=== PATIENT | female | born 2005 | race Caucasian/White ===

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

== ENCOUNTER 2024-01-03 02:26 | Observation (INO) | payer MEDICAID, SELFPAY ==
--- OUTSIDE RECORDS SUMMARY | 2024-01-03 02:31 | XMS_ITS | CCD ---
Author Organization [facility] Inform ion Partnership 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 HCG ( test) Ql (U)o n 07-25-2023 Interpretation and review of laboratory results Abnormal [facility] re Preg Test, Ur Positive [facility] Urinalysis macro (dipstick) panel (U)on 07-25-2023 Bilirubin, UA Negative Negative - 4(70) +++ mg/dL [facility] Blood, UA Negative Negative - 50 Onur/mcL [facility] Clarity, UA Clear [facility] re Color, UA Yellow [facility] e Glucose, UA Negative Negative - 1999(110) ++++ mg/dL [facility] Interpretation and review of laboratory results Abnormal [facility] re Ketones, UA Positive Negative - 160(16) ++++ mg/dL [facility] Leukocytes, UA Positive Negative - 500+++ Todd/mcL [facility] Nitrite, UA Negative Negative - Positive [facility] pH, UA 7.0 5 - 9 [facility] Protein, UA Positive Negative - 1999(20) ++++ mg/dL [facility] Spec Grav, UA 1.025 1 - 1.03 [facility] Urobilinogen, UA 1.0 0.2 - 12 mg/dL [facility] BASIC METABOLIC PANLon 07-18 Anion gap [Moles/Vol] 9 mmol/L Normal 5-15 [facility] Comment on above: Performed By: #### B MP #### [facility] ([id number]) [address] [place] [address]45 Calcium [Mass/Vol] 9.1 mg/dL Normal 8.5-10.5 [facility] Comment on above: Performed By: #### B MP #### [facility] ([id number]) [address] [place] [address] 93222 Chloride [Moles/Vol] 104 mmol/L Normal 98-109 [facility] Comment on above: Performed By: #### B MP #### [facility] ([id number]) [address] [place] [address] 51875 CO2 [Moles/Vol] 21 mmol/L Low 22-32 [facility] Comment on above: Performed By: #### B MP #### [facility] ([id number]) [address] [place] [address] 65890 Creatinine [Mass/Vol] 0.58 mg/dL Normal 0.30-1.00 [facility] Comment on above: Result Comment: METH OD TRACEABLE TO IDMS STANDARD Performed By: #### B MP #### [facility] ([id number]) [address] [place] [address] 32856 eGFR (CKD-EPI) NON-RACE DEPENDENT >90 Normal >59 [facility] Comment on above: Result Comment: Reported eGFR is based on the CKD-EPI 2020 equation that does not use a race coefficient. Performed By: #### B MP #### [facility] ([id number]) [address] [place] [address] 83055 Glucose [Mass/Vol] 106 mg/dL High 65-99 [facility] Comment on above: Performed By: #### B MP #### [facility] ([id number]) [address] [place] [address] 43343 Potassium [Moles/Vol] 3.5 mmol/L Normal 3.5-5.0 [facility] Comment on above: Performed By: #### B MP #### [facility] ([id number]) [address] [place] [address] 92942 Sodium [Moles/Vol] 134 mmol/L Normal 134-146 [facility] Comment on above: Performed By: #### B MP #### [facility] ([id number]) [address] [place] [address] 38951 Urea nitrogen [Mass/Vol] 10 mg/dL Normal 5-23 [facility] Comment on above: Performed By: #### B MP #### [facility] ([id number]) [address] [place] [address] 59687 HCG ( test) Ql (U)o n 07-18-2023 Beta HCG ( test) Ql (U) Positive Abnormal NEG [facility] Comment on above: Performed By: #### 2 106-3 #### [facility] ([id number]) [address] [place] [address] 80655 SARS/FLU A+B/RSV by NAAT/Mol ecularon 07-18-2023 SARS/FLU [...] operators who are performing tests using either SecurActive DX or Eyetronics systems and is limited to laboratories that [...] repeat. Fact Sheet for Healthcare Providers: https://www.fda.gov/ media/972587/downloa d Fact Sheet for Patients: https://www.fda.gov/ media/750927/downloa d Normal [facility] Comment on above: Performed By: #### C OVFLR #### [facility] ([id number]) [address] [place] [address], [place] [address] URINE CULTUREon 07-18-2023 Bacteria identified Cx Nom (U) CULTURE RESULTS 50-100,000 ORGANISMS/ML NORMAL UROGENITAL ADELE Normal [facility] Comment on above: Performed By: #### 6 30-4 #### [facility] ([id number]) [address] [place] [address], [address] [place] [address] URN MACROSCOPIC NURon 2023 BILIRUBIN MARLYS Negative Normal NEG [facility] Comment on above: Performed By: #### N UM #### [facility] ([id number]) [address] [place] [address] 26869 BLOOD/HGB MARLYS Negative Normal NEG [facility] Comment on above: Performed By: #### N UM #### [facility] ([id number]) [address] [place] [address] 66831 GLUCOSE MARLYS Negative Normal NEG [facility] Comment on above: Performed By: #### N UM #### [facility] ([id number]) [address] [place] [address]76 KETONES MARLYS 40 mg/dL Abnormal NEG [facility] Comment on above: Performed By: #### N UM #### [facility] ([id number]) [address] [place] [address] 12052 LEUKOCYTE ESTERASE MARLYS Small Abnormal NEG [facility] Comment on above: Performed By: #### N UM #### [facility] ([id number]) [address] [place] [address] 53159 NITRITE MARLYS Negative Normal [facility] Comment on above: Performed By: #### N UM #### [facility] ([id number]) [address] [place] [address] 26051 PH MARLYS 7.5 Normal 5.0-8.5 [facility] Comment on above: Performed By: #### N UM #### [facility] ([id number]) [address] [place] [address] 41258 PROTEIN MARLYS 30 mg/dL Abnormal NEG [facility] Comment on above: Performed By: #### N UM #### [facility] ([id number]) [address] [place] [address] [place] [address] SPECIFIC GRAVITY MARLYS 1.020 Normal 1.003-1.035 [facility] Comment on above: Performed By: #### N UM #### [facility] ([id number]) [address] [facility], [place] [address] UROBILINOGEN MARLYS 2.0 eu/dL High <1.1 [facility] Comment on above: Performed By: #### N UM #### [facility] ([id number]) [address] [place] [address], [place] [address] COVID Quick Testingon 2020 Result Negative [facility] Other Quick Strepon 05-08-2021 S. pyogenes Org specific cx Ql (Throat) Negative [facility] Other Quick Strep [facility]Pay [facility] Other XR chest 2V*on 05-08-2021 XR chest 2V* [facility] [place] [address] [place] [address] XRay Report Signed Patient: Shayla Martinez MR#: [id number] : 2005 Acct:[id number] Age/Sex: 15 / F ADM Date: 05/08/21 Loc: LOCATED [facility]IN [facility] Room: Type: [facility] Attending Dr: Sravani Dumont APRN, NP-C Ordering [...] 2:43 PM Dictation Location: RADIO-PC-10 Transcribed By: [facility] 05/08/21 1443 Dictated By: Radha Joyce MD 05/08/21 1442 Signed By: 05/08/21 1443 Normal [facility] XR chest 2V* [facility] Other XR chest 2V* [facility] Other XR chest 2V* [address] [place] [address] [employer] Other XR chest 2V* [place] [address] [facility] Other XR chest 2V* XRay Report [facility] Other XR chest 2V* Signed [facility] Other XR chest 2V* Patient: Shayla Martinez MR#: [id number] [facility] Other XR chest 2V* [id number] [facility] Other XR chest 2V* : 2005 Acct:[id number] [facility] Other XR chest 2V* Age/Sex: 15 / F ADM Date: 05/08/21 [facility] Other XR chest 2V* [facility] Other XR chest 2V* Attending Dr: Sravani Dumont APRN, LABORATORY DIRECTOR-C [facility] Other XR chest 2V* Ordering Provider: Sravani Dumont APRN, ASTROCHEMIST [facility] Other XR chest 2V* Date of Service: 05/08/21 [facility] Other XR chest 2V* XR/XR chest 2V*: Cough;Wheezing [facility] Other XR chest 2V* Copies to: Sravani Dumont APRN, MAXIMILIANO [facility] Other XR chest 2V* PA AND LATERAL CHEST: [facility] Other XR chest 2V* CLINICAL HISTORY: Crackling and diminished lung sounds on exam today. Body aches, fever and [facility] Other XR chest 2V* productive cough. [facility] Other XR chest 2V* COMPARISON: None [facility] Other XR chest 2V* There is no focal parenchymal consolidation, effusion or pneumothorax. The cardiac, hilar and [facility] Other XR chest 2V* mediastinal silhouettes are within normal limits. There is no vascular congestion. The [facility] Other XR chest 2V* visualized bony thorax is intact. There is subtle reverse S-shaped scoliotic curvature. [facility] Other XR chest 2V* XR/XR chest 2V* [facility] Other XR chest 2V* IMPRESSION: [facility] Other XR chest 2V* NO ACUTE CARDIOPULMONARY ABNORMALITY. [facility] Other XR chest 2V* Impression dictated by: Radha Joyce M.D.05/08/2021 2:43 PM [facility] Other XR chest 2V* Dictation Location: [facility]--10 [facility] Other XR chest 2V* Transcribed By: VIC 05/08/21 [facility] Other XR chest 2V* Dictated By: Radha Joyce MD 05/08/21 [facility] Other XR chest 2V* Signed By: [facility] Other XR chest 2V* 05/08/21 6623 [facility] Other C Throaton 09-17-2019 C Throat Ordered by Discern. Normal throat adele isolated No pathogens isolated [facility] Comment on above: Performed By: #### 6 [id number] ####[facility] (DEFAULT)[address] [place] [address] Coding Summaryon 09-16-2019 Coding Summary CODING DATE: 09/16/2019 [facility] STATUS: PAYOR: Medicaid HMO ADMIT DX: [...] Todd Bacon' Date Saved: 09/16/2019 11:41 am [facility] Coding Summary CODING DATE: 09/16/2019 [facility] STATUS: Home PAYOR: Medicaid HMO ADMIT [...] Dee Bacon Date Saved: 09/16/2019 11:39 am [facility] Consent Formson 09-16-2019 Consent Forms [id number] [id number] [facility] ED Clinical Summaryon 2019 ED Clinical Summary [facility] - Emergency Department [address] [place] [address] ED Clinical Summary PERSON INFORMATION Name: SHAYLA MARTINEZ Age: 13 Years Sex: FEMALE : 2005 MRN: Acct#: Visit Reason: EENT and Dental; Foreign body in throat; FOREIGN OBJECT IN THROAT Arrival: 09/15/2019 01:16:53 Discharge: 09/15/2019 03:23:00 LOS: 000 02:07 Check In: 09/15/2019 01:16:53 Checkout:09/15/2019 03:23:00 Address: [address] [place] [address] PCP: PROVIDER INFORMATION Provider Role Assigned Unassigned [...] here with her mom, she is from [place], private vehicle arrival. Review of systems otherwise [...] no foreign body seen, no RPA, PPA, TRANSIT MIXER DRIVER, no anterior posterior or supraclavicular nodes, no [...] . Impression and Plan Diagnosis Pharyngeal irritation (QPH02-VL J39.2, Discharge, Medical) Plan Condition: Improved. Disposition: Discharged: time 09/15/2019 03:13:00. Patient was given the following educational materials: Pharyngitis, Iana-gl-Tkhy, Pharyngitis, Nffd-sz-Ciib. Follow up with: JORGE HER Within 3 [...] Location: Home PATIENT EDUCATION INFORMATION Instructions: Pharyngitis, Ppdc-af-Veuh Follow-Up: With: Address: When: JORGE HER [facility] [place] [id number] Business (1) Within 3 to 5 days Comments: home lozenges as needed, expect this to resolve call Ms Her for a recheck if this continues for three days you are welcomed to return anytime joy ignacio, er physician, jumana hicks DIAGNOSIS: Pharyngeal irritation Patient Understands: Yes - Patient/family/careg iver verbalizes understanding of instructions given Comment: [facility] ED Note - Physicianon 2019 ED Note [...] here with her mom, she is from [place], private vehicle arrival. Review of systems otherwise [...] no foreign body seen, no RPA, PPA, TRANSIT MIXER DRIVER, no anterior posterior or supraclavicular nodes, no [...] . Impression and Plan Diagnosis Pharyngeal irritation (BQA59-YH J39.2, Discharge, Medical) Plan Condition: Improved. Disposition: Discharged: time 09/15/2019 03:13:00. Patient was given the following educational materials: Pharyngitis, Rkfp-vh-Nsyp, Pharyngitis, Fuum-dx-Rnlo. Follow up with: JORGE HER Within 3 [...] on: 09/15/2019 03:13 EDT] Cristofer Ignacio DO [facility] ED Patient Education Noteon 09-15-2019 ED Patient Education Note Education Materials Infectious Disease Pharyngitis Pharyngitis is a sore throat (pharynx). This is when there is redness, pain, and swelling in your throat. Most of the time, this condition gets better on its own. In some cases, you may need medicine. Follow these instructions at home: ? Take wcbg-lbz-fzokjsr and prescription medicines only as told by [...] 11/18/2008 Document Revised: 07/08/2017 Document Reviewed: 07/08/2017 [employer] Patient Education ? 2019 [employer] Normal [facility] ED Patient Summaryon 020 ED Patient Summary [facility] - Emergency Department [address] [place] [address] PATIENT DISCHARGE INSTRUCTIONS Patient Information Name: SHAYLA MARTINEZ Age: 13 Years Date of : 2005 Reason For Visit: EENT and Dental; Foreign body in throat; FOREIGN OBJECT IN THROAT Arrival Time: 09/15/2019 01:16:53 Primary Care Physician: Attending Physician: Cristofer Ignacio DO Comment: Visit Diagnosis: Diagnoses This Visit EENT and Dental ([id number]) Foreign body in throat ([id number]) Pharyngeal irritation (J39.2) Prescription Information: If you have been given a prescription for narcotics, seek immediate medical attention if you have any difficulty breathing or any sudden status changes such as confusion and sleepiness. If you or anyone you know is experiencing suicidal thoughts, mental health, alcohol and/or drug addiction problems; contact the [facility] 06/01 Crisis Hotline -Text 4HOIP to 413093. If you received any narcotics, sedation, or [...] legal documents With: Address: When: JORGE HER [address] [place], [place] [address] Business (1) Within 3 to 5 days Comments: home lozenges as needed, expect this to resolve call Ms Her for a recheck if this continues for three days you are welcomed to return anytime joy ignacio, suzi physician, jumana hicks Medication Information: The exam and treatment you received today in the [facility] Emergency Department were for an urgent problem and are not intended as complete care. It is important for you to follow up with a doctor, nurse practitioner, or physician?s home health assistant for ongoing care. If your symptoms [...] so we can reach you if necessary. [facility] Emergency Department has provided you with a complete list of medications post discharge. Please inform your pouch making machine operator/provider of your visit and for further [...] Follow these instructions at home: ? Take rrgk-ckp-pkjuwsg and prescription medicines only as told by [...] 11/18/2008 Document Revised: 07/08/2017 Document Reviewed: 07/08/2017 [employer] Patient Education ? 2019 [employer] Viruses or Bacteria What?s got you [...] for Disease Control and Prevention February 2014 [facility] Influenza A&B Rapidon 2019 Influenza A Negative Normal Negative [facility] Comment on above: Performed By: #### 1 [id number] #### [facility] (DEFAULT) [address] [place] [address] Influenza B Negative Normal Negative [facility] Comment on above: Performed By: #### 1 [id number] #### [facility] (DEFAULT) [address] [place] [address] Internal QC OK? Pass [facility] Comment on above: Performed By: #### 1 [id number] #### [facility] (DEFAULT) [address] [place] [address] Strep Aon 09-15-2019 Strep procedure control Pass Normal [facility] l Comment on above: Performed By: #### 6 [id number] #### [facility] (DEFAULT) [address] [place] [address] Streptococcus A Negative Normal Negative [facility] Comment on above: Performed By: #### 6 [id number], [id number] #### [facility] (DEFAULT) [address] [place] [address] XR Neck Soft Tissueon 2019 XR Neck [...] L 09/15/19 2:28 am Technologist: PATRICIA Johnson [facility] Vital Signs Date Time Vital Sign Value Performing Clinician Facility 07-25-2023 10:08-0500 Body weight 73.85 kg Noms Nurse [facility] 04-16-2022 14:30-0400 Body weight 79.74 kg Sravani Dumont Other [facility] Other 04-16-2022 14:30-0400 Diastolic blood pressure 74 mm[Hg] Sravani Dumont Other [facility] Other 04-16-2022 14:30-0400 SaO2% (BldA) [Mass fraction] 96 % Sravani Dumont Other [facility] Other 04-16-2022 14:30-0400 Systolic blood pressure 116 mm[Hg] Sravani Dumont Other [facility] Other 03-08-2021 14:00-0400 Body height 166.37 cm Sravani Julia Other [facility] Other 03-08-2021 14:00-0400 Body mass index (BMI) [Ratio] 29.33 kg/m2 Sravani Julia Other [facility] Other 03-08-2021 14:00-0400 Body weight 81.19 kg Sravani Julia Other [facility] Other 03-08-2021 14:00-0400 Diastolic blood pressure 66 mm[Hg] Sravani Dumont Other [facility] Other 03-08-2021 14:00-0400 Respiratory rate 18 /min Sravani Julia Other [facility] Other 03-08-2021 14:00-0400 SaO2% (BldA) [Mass fraction] 100 % Sravani Julia Other [facility] Other 03-08-2021 14:00-0400 Systolic blood pressure 120 mm[Hg] Sravani Dumont Other [facility] Other Encounters Encounter Date Encounter Type Care [...] 07-18-2023 Emergency department patient visit JORGE [facility] Start: 11-28-2022 End: 11-28-2022 ambulatory Sravani Dumont Other [facility] Other Start: 11-28-2022 Telephone encounter Sravani Forrest her [facility] Start: 04-16-2022 End: 04-16-2022 ambulatory Sravani Dumont Other [facility] Other Start: 04-16-2022 Encounter for routin e child health examination without abnormal findings Sravani Dumont [facility] Start: 04-16-2022 Periodic preventive med est patient 12-17yrs Sravani Dumont [facility] Start: 05-08-2021 End: 05-08-2021 ambulatory Sravani Dumont Other [facility] Other Start: 05-08-2021 Office outpatient vi sit 15 minutes Sravani Dumont [facility] Start: 05-08-2021 Telephone encounter Sravani Forrest her [employer] Start: 03-08-2021 Office outpatient vi sit 15 minutes Sravani Dumont [facility] Procedures Date Procedure Procedure Detail Performing Clinician Start: 07-29-2023 [facility] BOX TEST SENT OUT C ted Lindseyzio DO Work Phone: Start: 07-25-2023 Urnls dip stick/tabl et rgnt non-auto w/o micrscp Willi Christiansen DO Work Phone: Plan of Treatment Date Care Activity Detail Author Start: 08-26-2023 End: 08-26-2023 Patient encounter procedure 08/26/2023 1:50 PM EDT Routine [facility] [address] [place] [id number] Willi Christiansen, DO [address] [place] [address] [facility] Start: 07-25-2023 End: 07-25-2024 ABO/Rh ABO/Rh Lab Routine Missed menses Expected: 07/25/2023 (Approximate), Expires: 07/25/2024 [facility] Comment on above: Expected: 07/25/2023 (Approximate), Expires: 07/25/2024 Start: 07-25-2023 End: 07-25-2024 Blood type and Indirect antibody screen panel - Blood Type and screen Lab Routine Missed menses Expected: 07/25/2023 (Approximate), Expires: 07/25/2024 [facility] Work Phone: Comment on above: Expected: 07/25/2023 (Approximate), Expires: 07/25/2024 Start: 07-25-2023 End: 07-25-2024 US Pelvis transvaginal US OB transvaginal Imaging Routine Missed menses Expected: 07/25/2023 (Approximate), Expires: 07/25/2024 [facility] Comment on above: Expected: 07/25/2023 (Approximate), Expires: 07/25/2024 Bacteria identified in Urine by Culture Urine culture Microbiology Routine Missed menses Ordered: 07/25/2023 [facility] Comment on above: Ordered: 07/25/2023 CBC W Auto Different ial panel - Blood CBC and differential Lab Routine Missed menses Ordered: 07/25/2023 [facility] Comment on above: Ordered: 07/25/2023 Hemoglobin A1c measurement Hemoglobin A1c Lab Routine Missed menses Ordered: 07/25/2023 [facility] Comment on above: Ordered: 07/25/2023 Hepatitis B virus surface Ag [Presence] in Serum or Plasma by Immunoassay Hepatitis B surface antigen Lab Routine Missed menses Ordered: 07/25/2023 [facility] Comment on above: Ordered: 07/25/2023 Hepatitis C virus Ab [Presence] in Serum or Plasma by Immunoassay Hepatitis C antibody Lab Routine Missed menses Ordered: 07/25/2023 [facility] Comment on above: Ordered: 07/25/2023 HIV-1/HIV-2 antigen/antibody combination immunoassay HIV-1 and HIV-2 antibodies Lab Routine Missed menses Ordered: 07/25/2023 [facility] Comment on above: Ordered: 07/25/2023 Reagin Ab [Presence] in Serum by RPR RPR Lab Routine Missed menses Ordered: 07/25/2023 [facility] Comment on above: Ordered: 07/25/2023 Rubella antibody, IgG Rubella an tibody, IgG Lab Routine Missed menses Ordered: 07/25/2023 [facility] Comment on above: Ordered: 07/25/2023 Payers Date Payer Category Payer Medicaid [place] [id number] 2023-Present [address] [place] [address] [id number] 2022 Medicaid [id number] 2021 [facility] [id number] 2016 Unknown [id number] 2004 Unknown [id number] 2004 Unknown [id number] 2004 Unknown [id number] 259 2004 Unknown [id number] 2004 Unknown [id number] 259 Social History Date Type Detail Facility Sex Assigned At [facility] Other Tobacco smoking stat [facility] Tobacco smoking consumption unknown [facility] Start: 06-03-2023 [facility] Start: 2005 Sex Assigned At Female [facility] Start: 07-07-2023 Gender identity Identifies as female gender (finding) [facility] Start: 07-07-2023 Sexual orientation Heterosexual (finding) [facility] History of Present illness Narrative [...] or undercooked meat, and stay away from [facility]. Patient has also been advised to [...] Jacquelyn Steel MA documented in this encounter [facility] Evaluation note 04-16-2022 Note Date & [...] understanding and agrees to plan of care. [facility] Other Evaluation note 05-08-2021 Note Date & [...] stool studies. Apr, Nausea (ICD-10 - R11.0) [facility] Other Evaluation note 03-08-2021 Note Date & [...] verbalized understanding and agreement with treatment plan. [facility] Other Evaluation note Note Date & Type Note Facility Evaluation note No Information [facility] Other Evaluation note Note Date & Type Note Facility Evaluation note Diagnosis Missed menses documented in this encounter [facility] History general Narrative - Reported Note Date & Type Note Facility History general Narrative - Reported Type Medical History [facility] Surgical History tonsilectomy and adenoidectomy [facility] Other Summary Purpose Family History No Family History Records FoundNo Family History Records FoundNo Family History Records FoundNo Family History Records Found Advance Directives No Advanced Directives Records FoundNo Advanced Directives Records FoundNo Advanced Directives Records FoundNo Advanced Directives Records Found Additional Source Comments INFORMATION SOURCE (unrecogn ized section and content) DATE CREATED AUTHOR 07/08/2020 [facility] DATE CREATED AUTHOR AUTHOR'S ORGANIZ ATION 08/03/2021 [facility] DATE CREATED AUTHOR AUTHOR'S ORGANIZ ATION 07/20/2023 [facility] DATE CREATED AUTHOR AUTHOR'S ORGANIZ ATION 11/21/2023 [facility] EPIC REASON FOR VISIT [...] BE BASED ON THE PRIMARY CLINICAL RECORDS. [employer] provides no warranty or guarantee of the accuracy or completeness of information in this document.
[2024-01-03 02:51] VITALS: BP 135/79; PULSE 90; O2SAT 99
[2024-01-03 03:11] LABS: Bilirubin Urine NEGATIVE (NEGATIVE); Blood Urine NEGATIVE (NEGATIVE); Clarity Urine SL CLOUDY (CLEAR); Color Urine LT. YELLOW (YELLOW); Glucose Urine UA NEGATIVE (NEGATIVE); Ketones Urine >=80 mg/dL (NEGATIVE); Leukocyte Esterase Urine SMALL (NEGATIVE); Nitrite Urine NEGATIVE (NEGATIVE); Protein Urine NEGATIVE (NEG/TRACE); Specific Gravity Urine >=1.030 (1.005-1.025); Urobilinogen Urine 0.2 EU/dL (0.2-1.0)
[2024-01-03 03:13] LABS: Urine Microscopic Indicated YES
[2024-01-03 03:24] LABS: Bacteria Urine MODERATE #/HPF (NONE SEEN); Mucus Urine TRACE (NONE SEEN); RBC Urine 0-2 #/HPF (0-2); Squamous Epithelial Cell Urine MODERATE #/LPF (NONE/RARE)
[2024-01-03 03:25] LABS: Cast Seen? NONE SEEN #/LPF (NONE SEEN); Crystals Seen? None Seen #/HPF (None Seen)
[2024-01-03 03:26] LABS: Urine Culture Indicated YES
[2024-01-03] MEDS: 0.9 % SODIUM CHLORIDE 1,000 ML 125 ML IV ×2 (04:30→08:30)
[2024-01-03] MEDS: NALBUPHINE HCL 10 MG/ML AMPULE IV (04:31)
--- NOTE | 2024-01-03 07:00 | US_ITS ---
[address] [address] Patient Name: KALYN MARTINEZ MRN: [facility]:[id number] date: 2005 Sex: F Assigned Patient Location: [facility] Current Patient Location: [facility] Accession/Order Number: [id number] Exam Date: 01/03/2024 07:11 Report Date: 01/03/2024 08:37 At the request of: WILLI ZAMBRANO Procedure: US OB cervical length EXAM: US OB cervical length, US OB placenta INDICATION: Fall. COMPARISON: None. TECHNIQUE: Limited obstetric ultrasound was performed. FINDINGS: Single intrauterine gestation in cephalic presentation [place]: 16.2 cm, normal Single deepest pocket: 5.1 cm Placenta location: Posterior. No evidence of placental abruption. heart rate: 126 bpm Cervical length: 3.5 cm, closed US/US OB cervical length IMPRESSION: 1. Single live intrauterine gestation. 2. Normal cervical length. 3. Posterior placenta. Electronically authenticated by: MARITZA HDEZ Date: 01/03/2024 08:37
--- NOTE | 2024-01-03 07:00 | US_ITS ---
[place] [id number] Patient Name: KALYN MARTINEZ MRN: [facility]:[id number] date: 2005 Sex: F Assigned Patient Location: [facility] Current Patient Location: [facility] Accession/Order Number: [id number] Exam Date: 01/03/2024 07:11 Report Date: 01/03/2024 09:01 At the request of: WILLI ZAMBRANO Procedure: US OB BPP w non-stress EXAM: US OB BPP w non-stress INDICATION: fall. COMPARISON: Same day obstetric ultrasound TECHNIQUE: Limited transabdominal obstetric ultrasound was performed. FINDINGS: Single intrauterine gestation. heart rate: 126 bpm [place]: 16.2 cm, normal Biophysical profile: Amniotic fluid: 2 Breathin Movement: 2 Tone: 2 Total biophysical score: 8 out of 8 US/US OB BPP w non-stress IMPRESSION: 1. Single live intrauterine . 2. BPP of 8 out of 8 Electronically authenticated by: MARITZA HDEZ Date: 01/03/2024 09:01
--- NOTE | 2024-01-03 07:00 | US_ITS ---
[address] [address] Patient Name: KALYN MARTINEZ MRN: [facility]:[id number] date: 2005 Sex: F Assigned Patient Location: [facility] Current Patient Location: [facility] Accession/Order Number: [id number] Exam Date: 01/03/2024 07:11 Report Date: 01/03/2024 08:37 At the request of: WILLI ZAMBRANO Procedure: US OB placenta EXAM: US OB cervical length, US OB placenta INDICATION: Fall. COMPARISON: None. TECHNIQUE: Limited obstetric ultrasound was performed. FINDINGS: Single intrauterine gestation in cephalic presentation [place]: 16.2 cm, normal Single deepest pocket: 5.1 cm Placenta location: Posterior. No evidence of placental abruption. heart rate: 126 bpm Cervical length: 3.5 cm, closed US/US OB placenta IMPRESSION: 1. Single live intrauterine gestation. 2. Normal cervical length. 3. Posterior placenta. Electronically authenticated by: MARITZA HDEZ Date: 01/03/2024 08:37
--- NOTE | 2024-01-03 08:00 | XR_ITS ---
[address] [address] Patient Name: KALYN MARTINEZ MRN: [facility]:[id number] date: 2005 Sex: F Assigned Patient Location: [facility] Current Patient Location: [facility] Accession/Order Number: [id number] Exam Date: 01/03/2024 10:37 Report Date: 01/03/2024 11:22 At the request of: WILLI ZAMBRANO Procedure: XR chest 2V EXAM: XR chest 2V INDICATION: Fall. COMPARISON: None. TECHNIQUE: Two views of the chest FINDINGS: Normal cardiomediastinal contours. No acute infiltrative process. No pleural effusion or pneumothorax. No acute osseous abnormality. XR/XR chest 2V IMPRESSION: No acute cardiopulmonary process. Electronically authenticated by: MARITZA HDEZ Date: 01/03/2024 11:22
[2024-01-03 08:30] VITALS: PULSE 77; TEMP 36.8
[2024-01-03] MEDS: ACETAMINOPHEN 500 MG TABLET 1000 MG PO (08:31)
[2024-01-03 08:36] VITALS: BP 114/55; PULSE 77; TEMP 36.8
--- NOTE | 2024-01-03 09:22 | P.OBPN_ITS ---
OB - PN: Subj Subjective Interval history: 18 yo at 32 4/7wks presented dt fall in shower, pt states fell on ribs, pt states ribs are painful, denies fever chills, denies urinary symptoms, pt denies lof vb, ctxns Exam Constitutional Vital Signs, click to edit/add: Last Vital Signs Pulse 77 01/03/24 08:36 Resp 16 01/03/24 02:51 BP 114/55 01/03/24 08:36 Pulse Ox 99 01/03/24 02:51 Documenting provider has reviewed patient's vital signs: yes Respiratory Common normals: normal respiratory effort and clear to auscultation bilaterally Cardio Common normals: regular rate and regular rhythm GI Common normals: Normal to inspection, nondistended, normoactive bowel sounds present Extremity Common normals: normal to inspection and no clubbing, cyanosis or edema Results Labs Labs: Urine 01/03/24 Range/Units 02:40 Urine Color Lt. yellow (YELLOW) Urine Clarity Sl cloudy (CLEAR) Urine pH 6.0 (5.0-9.0) Ur Specific [place] >=1.030 A (1.005-1.025) Urine Protein Negative (NEG/TRACE) mg/dL Urine Glucose (UA) Negative (NEGATIVE) mg/dL OB - PN: A/P Assessment and Plan (1) Rib pain: (2) Intrauterine : Assessment and Plan: obtain us and cxr, pain control, efm, will dc home if normal cxr Time Spent with Patient Time: Total time spent is greater than 50% in coordination of care (as documented) at patient's floor/unit and/or counseling patient: Total time spent with greater than 50% in coordination of care (as documented) at patient's floor/unit and/or counseling patient: less than 15 minutes
== END 2024-01-03 11:51 | disposition home or self-care (01) ==
PROVIDERS: Admitting Provider Obstetrics & Gynecology; Visit Provider Obstetrics & Gynecology
DX: O26.893 Other specified pregnancy related conditions, third trimester (principal); R07.81 Pleurodynia; W18.2XXA Fall in (into) shower or empty bathtub, initial encounter
CPT/HCPCS: 59025; 71046; 76815; 76817; 76818; 81001; 87086; 96374; G0378; G0379; J2300

== ENCOUNTER 2024-01-06 10:03 | Outpatient (OUT) | payer MEDICAID, SELFPAY ==
--- NOTE | 2024-01-06 10:06 | US_ITS ---
[address] [address] Patient Name: KALYN MARTINEZ MRN: [id number] date: 2005 Sex: F Assigned Patient Location: [facility] Current Patient Location: [facility] Accession/Order Number: [id number] Exam Date: 01/06/2024 10:06 Report Date: 01/06/2024 11:23 At the request of: WILLI ZAMBRANO Procedure: US OB growth EXAMINATION: US OB growth HISTORY: SIZE INCONSISTENT WITH DATES COMPARISON: Ultrasound OB anatomy 10/20/2023 FINDINGS: Heart Rate: 132 bpm Amniotic Fluid Volume: 10.8 cm Number: 1 Position: CEPHALIC BIOMETRY: BPD: 8.17 cm; 32 weeks 6 days; 38.50 % HC: 29.98 cm; 33 weeks 2 days; 19.40 % AC: 28.86 cm; 32 weeks 6 days; 47 % FL: 6.33 cm; 32 weeks 5 days; 31 % EFW: 2044.98 g; 36.30 % FL/AC: 21.93 FL/BPD: 77.48 HC/AC: 1.04 GESTATIONAL AGE: Age by EDC: 33 weeks 0 days CHENTE by EDC: 2024-02-24 Age by US: 33 weeks 0 days CHENTE by US: 2024-02-24 US/US OB growth IMPRESSION: 1. Single live intrauterine with growth detailed above. Electronically authenticated by: JOÃO RAMÍREZ Date: 01/06/2024 11:23
== END 2024-01-06 10:04 | disposition home or self-care (01) ==
LOC: NOMS 10:03
PROVIDERS: Visit Provider Obstetrics & Gynecology
DX: O26.843 Uterine size-date discrepancy, third trimester (principal); Z3A.33 33 weeks gestation of pregnancy
CPT/HCPCS: 76816

== ENCOUNTER 2024-01-14 22:45 | Observation (INO) | payer MEDICAID, SELFPAY ==
--- OUTSIDE RECORDS SUMMARY | 2024-01-14 22:51 | XMS_ITS | CCD ---
Author Organization [facility] Inform ion Partnership [facility] Care Team Providers Care Garment Presser Name Role Phone Sravani Dumont Unavailable JORGE HER Primary Care Unavailable JEROMY TIJERINA Attending Unavailable Unavailable Primary Care Provider WILLI Pettit Attending Unavailable EDGAR COX Attending Unavailable WILLI CHRISTIANSEN Attending Unavailable WILLI CHRISTIANSEN Attending Unavailable EDGAR COX Attending Unavailable Allergies Allergy Classification Reported Allergen(s) Allergy Type Date of Onset Reaction(s) Facility (3 sources) Amoxicillin; Translations: [AMOXICILLIN] Drug Allergy 12-27-2022 [facility] Rep[facility] Medications Current Medications Medication Drug Class(es) Dates Sig (Normalized) Sig (Original) [id number] 200 actuat albuterol 0.09 mg/actuat metered dose [...] Test Name Value Interpretation Reference Range Facility [facility] BOX TEST SENT OUTon 07-17 BOX TEST SENT OUT SENT 07/29 [facility] e HCG ( test) Ql (U)o n 07-25-2023 Interpretation and review of laboratory results Abnormal [facility] Preg Test, Ur Positive [facility] e Urinalysis macro (dipstick) panel (U)on 07-25-2023 Bilirubin, UA Negative Negative - 4(70) +++ mg/dL [facility] Blood, UA Negative Negative - 50 Onur/mcL [facility] Clarity, UA Clear [facility] re Color, UA Yellow [facility] e Glucose, UA Negative Negative - 2000(110) ++++ mg/dL [facility] Interpretation and review of laboratory results Abnormal [facility] re Ketones, UA Positive Negative - 160(16) ++++ mg/dL [facility] Leukocytes, UA Positive Negative - 500+++ Todd/mcL [facility] Nitrite, UA Negative Negative - Positive [facility] pH, UA 7.0 5 - 9 [facility] e Protein, UA Positive Negative - 1999(20) ++++ mg/dL [facility] Spec Grav, UA 1.025 1 - 1.03 [facility] Urobilinogen, UA 1.0 0.2 - 12 mg/dL [facility] e BASIC METABOLIC PANLon 07-18 Anion gap [Moles/Vol] 9 mmol/L Normal 5-[address] [facility] Comment on above: Performed By: #### B MP #### [facility] ([id number]) [address] [place] [address] 32144 Calcium [Mass/Vol] 9.1 mg/dL Normal 8.5-10.5 [facility] Comment on above: Performed By: #### B MP #### [facility] ([id number]) [address] [place] [address] 01465 Chloride [Moles/Vol] 104 mmol/L Normal 98-[address] [facility] Comment on above: Performed By: #### B MP #### [facility] ([id number]) [address] [place] [address] 02399 CO2 [Moles/Vol] 21 mmol/L Low 22-32 [facility] Comment on above: Performed By: #### B MP #### [facility] ([id number]) [address] [place] [address] 75172 Creatinine [Mass/Vol] 0.58 mg/dL Normal 0.30-1.[address] [facility] Comment on above: Result Comment: METH OD TRACEABLE TO IDMS STANDARD Performed By: #### B MP #### [facility] ([id number]) [address] [place] [address] 11155 eGFR (CKD-EPI) NON-RACE DEPENDENT >90 Normal >59 [facility] Comment on above: Result Comment: Reported eGFR is based on the CKD-EPI 2020 equation that does not use a race coefficient. Performed By: #### B MP #### [facility] ([id number]) [address] [place] [address] 69381 Glucose [Mass/Vol] 106 mg/dL High 65-99 [facility] Comment on above: Performed By: #### B MP #### [facility] ([id number]) [address] [place] [address] 27010 Potassium [Moles/Vol] 3.5 mmol/L Normal 3.5-5.[address] [facility] Comment on above: Performed By: #### B MP #### [facility] ([id number]) [address] [place] [address] 32317 Sodium [Moles/Vol] 134 mmol/L Normal 134-146 [facility] Comment on above: Performed By: #### B MP #### [facility] ([id number]) [address] [place] [address] 46017 Urea nitrogen [Mass/Vol] 10 mg/dL Normal 5-[address] [facility] Comment on above: Performed By: #### B MP #### [facility] ([id number]) [address] [place] [address] 31275 HCG ( test) Ql (U)o n 07-18-2023 Beta HCG ( test) Ql (U) Positive Abnormal NEG [facility] Comment on above: Performed By: #### 2 106-3 #### [facility] ([id number]) [address] [place] [address] 83649 SARS/FLU A+B/RSV by NAAT/Mol ecularon 07-18-2023 SARS/FLU [...] operators who are performing tests using either Qwilt or [employer] An[employer] systems and is limited to laboratories that [...] repeat. Fact Sheet for Healthcare Providers: https://www.fda.gov/ media/292912/downloa d Fact Sheet for Patients: https://www.fda.gov/ media/947228/downloa d Normal [facility] Comment on above: Performed By: #### C OVFLR #### [facility] ([id number]) [address] [place] [address] [place] [address] URINE CULTUREon 07-18-2023 Bacteria identified Cx Nom (U) CULTURE RESULTS 50-100,000 ORGANISMS/ML NORMAL UROGENITAL ADELE Normal [facility] Comment on above: Performed By: #### 6 30-4 #### [facility] ([id number]) [address] [facility], [address] [place] [address] URN MACROSCOPIC NURon 2023 BILIRUBIN MARLYS Negative Normal NEG [facility] Comment on above: Performed By: #### N UM #### [facility] ([id number]) [address] [place] [address], [place] [address] BLOOD/HGB MARLYS Negative Normal NEG [facility] Comment on above: Performed By: #### N UM #### [facility] ([id number]) [address] [place] [address] 66849 GLUCOSE MARLYS Negative Normal [facility] Comment on above: Performed By: #### N UM #### [facility] ([id number]) [address] [place] [address] 52743 KETONES MARLYS 40 mg/dL Abnormal NEG [facility] Comment on above: Performed By: #### N UM #### [facility] ([id number]) [address] [place] [address] 87618 LEUKOCYTE ESTERASE MARLYS Small Abnormal NEG [facility] Comment on above: Performed By: #### N UM #### [facility] ([id number]) [address] [place] [address] 98782 NITRITE MARLYS Negative Normal NEG [facility] Comment on above: Performed By: #### N UM #### [facility] ([id number]) [address] [place] [address] 12319 PH MARLYS 7.5 Normal 5.0-8.5 [facility] Comment on above: Performed By: #### N UM #### [facility] ([id number]) [address] [place] [address] 95046 PROTEIN MARLYS 30 mg/dL Abnormal NEG [facility] Comment on above: Performed By: #### N UM #### [facility] ([id number]) [address] [facility], [place] [address] SPECIFIC GRAVITY MARLYS 1.020 Normal 1.003-1.[address] [facility] Comment on above: Performed By: #### N UM #### [facility] ([id number]) [address] [facility], [place] [address] UROBILINOGEN MARLYS 2.0 eu/dL High <1.1 [facility] Comment on above: Performed By: #### N UM #### [facility] ([id number]) [address] [place] [address], [place] [address] COVID Quick Testingon 2020 Result Negative [employer] Other Quick Strepon 05-08-2021 S. pyogenes Org specific cx Ql (Throat) Negative [employer] Other Quick Strep retickr [facility] [employer] Other XR chest 2V*on 05-08-2021 XR chest 2V* [facility] Main [place] [address] [place] [address] XRay Report Signed Patient: Shayla Martinez MR#: [id number] : 2005 Acct:[id number] Age/Sex: 15 / F ADM Date: 05/08/21 Loc: [facility] Room: Type: [facility] Attending Dr: Sravani Dumont APRN, NP-C Ordering [...] 2:43 PM Dictation Location: RADIO-PC-10 Transcribed By: [facility] 05/08/21 1443 Dictated By: Radha Joyce MD 05/08/21 144 Signed By: 05/08/21 1443 Normal [facility] XR chest 2V* [facility] [employer] Other XR chest 2V* [facility] Main [facility] [employer] Other XR chest 2V* [address] [place] [address] [employer] Other XR chest 2V* [place] [address] [facility] [employer] Other XR chest 2V* XRay Report [employer] Other XR chest 2V* Signed [employer] Other XR chest 2V* Patient: Shayla Martinez MR#: [id number] [employer] Other XR chest 2V* [address] [employer] Other XR chest 2V* : 2005 Acct:[id number] [employer] Other XR chest 2V* Age/Sex: 15 / F ADM Date: 05/08/21 [employer] Other XR chest 2V* Loc: [facility] Room: Type: [facility] [employer] Other XR chest 2V* Attending Dr: Sravani Dumont APRN, TALENT ACQUISITION DIRECTOR-C [employer] Other XR chest 2V* Ordering Provider: Sravani Dumont APRN, SENIOR TRAINER [employer] Other XR chest 2V* Date of Service: 05/08/21 [employer] Other XR chest 2V* XR/XR chest 2V*: Cough;Wheezing [employer] Other XR chest 2V* Copies to: Sravani Dumont APRN, MAXIMILIANO [employer] Other XR chest 2V* PA AND LATERAL CHEST: [employer] Other XR chest 2V* CLINICAL HISTORY: Crackling and diminished lung sounds on exam today. Body aches, fever and [employer] Other XR chest 2V* productive cough. [employer] Other XR chest 2V* COMPARISON: None [employer] Other XR chest 2V* There is no focal parenchymal consolidation, effusion or pneumothorax. The cardiac, hilar and [employer] Other XR chest 2V* mediastinal silhouettes are within normal limits. There is no vascular congestion. The [employer] Other XR chest 2V* visualized bony thorax is intact. There is subtle reverse S-shaped scoliotic curvature. [employer] Other XR chest 2V* XR/XR chest 2V* [employer] Other XR chest 2V* IMPRESSION: [employer] Other XR chest 2V* NO ACUTE CARDIOPULMONARY ABNORMALITY. [employer] Other XR chest 2V* Impression dictated by: Radha Joyce M.D.05/08/2021 2:43 PM [employer] Other XR chest 2V* Dictation Location: [facility]10 [employer] Other XR chest 2V* Transcribed By: VIC 05/08/21 [facility] [employer] Other XR chest 2V* Dictated By: Radha Joyce MD 05/08/21 1442 [employer] Other XR chest 2V* Signed By: [employer] Other XR chest 2V* 05/08/21 1444 retickr [facility] [employer] Other C Throaton 09-17-2019 C Throat Ordered by Discern. Normal throat adele isolated No pathogens isolated [facility] Comment on above: Performed By: #### 6 [id number] ####[facility] (DEFAULT)[address] [place] [address] Coding Summaryon 09-16-2019 Coding Summary CODING DATE: 09/16/2019 [facility] STATUS: PAYOR: Medicaid HMO ADMIT DX: REASON [...] Bacon Date Saved: 09/16/2019 11:41 am [facility] Coding Summary CODING DATE: 09/16/2019 [facility] STATUS: Home PAYOR: Medicaid HMO ADMIT DX: [...] Bacon Date Saved: 09/16/2019 11:39 am [facility] Consent Formson 09-16-2019 Consent Forms [id number] [id number] [facility] ED Clinical Summaryon 2019 ED Clinical Summary [facility] - Emergency Department [address] [place] [address] ED Clinical Summary PERSON INFORMATION Name: SHAYLA MARTINEZ Age: 13 Years Sex: FEMALE : 2005 MRN: Acct#: Visit Reason: EENT and Dental; Foreign body in throat; FOREIGN OBJECT IN THROAT Arrival: 09/15/2019 01:16:53 Discharge: 09/15/2019 03:23:00 LOS: 000 02:07 Check In: 09/15/2019 01:16:53 Checkout:09/15/2019 03:23:00 Address: [address] [place] [address] PCP: PROVIDER INFORMATION Provider Role Assigned Unassigned [...] here with her mom, she is from [place], private vehicle arrival. Review of systems otherwise [...] no foreign body seen, no RPA, PPA, GRID INSPECTOR, no anterior posterior or supraclavicular nodes, no [...] . Impression and Plan Diagnosis Pharyngeal irritation (HCN15-HM J39.2, Discharge, Medical) Plan Condition: Improved. Disposition: Discharged: time 09/15/2019 03:13:00. Patient was given the following educational materials: Pharyngitis, Lfki-rv-Biyc, Pharyngitis, Paal-xn-Yhuw. Follow up with: JORGE HER Within 3 [...] Location: Home PATIENT EDUCATION INFORMATION Instructions: Pharyngitis, Hzmn-bd-Cslz Follow-Up: With: Address: When: JORGE HER [facility] [place] [id number] Business (1) Within 3 to 5 days Comments: home lozenges as needed, expect this to resolve call Ms Her for a recheck if this continues for three days you are welcomed to return anytime joy ignacio, er physician, jumana hicks DIAGNOSIS: Pharyngeal irritation Patient Understands: Yes - Patient/family/careg iver verbalizes understanding of instructions given Comment: [facility] ED Note - Physicianon 2019 ED [...] here with her mom, she is from [place], private vehicle arrival. Review of systems otherwise [...] no foreign body seen, no RPA, PPA, GRID INSPECTOR, no anterior posterior or supraclavicular nodes, no [...] . Impression and Plan Diagnosis Pharyngeal irritation (VGQ36-SR J39.2, Discharge, Medical) Plan Condition: Improved. Disposition: Discharged: time 09/15/2019 03:13:00. Patient was given the following educational materials: Pharyngitis, Nmwn-db-Hmng, Pharyngitis, Usjc-fk-Wvrj. Follow up with: JORGE HER Within 3 [...] 09/15/2019 03:13 EDT] Cristofer Ignacio DO [facility] ED Patient Education Noteon 09-15-2019 ED Patient Education Note Education Materials Infectious Disease Pharyngitis Pharyngitis is a sore throat (pharynx). This is when there is redness, pain, and swelling in your throat. Most of the time, this condition gets better on its own. In some cases, you may need medicine. Follow these instructions at home: ? Take mzkz-gbi-rxhoqcd and prescription medicines only as told by [...] 11/18/2008 Document Revised: 07/08/2017 Document Reviewed: 07/08/2017 [employer] Patient Education ? 2019 [employer] Normal [facility] ED Patient Summaryon 020 ED Patient Summary [facility] - Emergency Department [address] [place], [place] [id number] PATIENT DISCHARGE INSTRUCTIONS Patient Information Name: SHAYLA MARTINEZ Age: 13 Years Date of : 2005 Reason For Visit: EENT and Dental; Foreign body in throat; FOREIGN OBJECT IN THROAT Arrival Time: 09/15/2019 01:16:53 Primary Care Physician: Attending Physician: Cristofer Ignacio DO Comment: Visit Diagnosis: Diagnoses This Visit EENT and Dental ([id number]) Foreign body in throat ([id number]) Pharyngeal irritation (J39.2) Prescription Information: If you have been given a prescription for narcotics, seek immediate medical attention if you have any difficulty breathing or any sudden status changes such as confusion and sleepiness. If you or anyone you know is experiencing suicidal thoughts, mental health, alcohol and/or drug addiction problems; contact the [facility] Health & Recovery Board [facility] 06/01 Crisis Hotline -Text 4HOPE to 199919. If you received any narcotics, sedation, or [...] legal documents With: Address: When: JORGE HER [address] [place], [place] [id number] Business (1) Within 3 to 5 days Comments: home lozenges as needed, expect this to resolve call Ms Her for a recheck if this continues for three days you are welcomed to return anytime joy ignacio, suzi physician, jumana hicks Medication Information: The exam and treatment you received today in the [facility] Emergency Department were for an urgent problem and are not intended as complete care. It is important for you to follow up with a doctor, nurse practitioner, or physician?s assistant professor of physics for ongoing care. If your symptoms become [...] so we can reach you if necessary. [facility] Emergency Department has provided you with a complete list of medications post discharge. Please inform your trademark paralegal/provider of your visit and for further instruction [...] Follow these instructions at home: ? Take johh-ibb-voxlmue and prescription medicines only as told by [...] 11/18/2008 Document Revised: 07/08/2017 Document Reviewed: 07/08/2017 [employer] Interactive Patient Education ? 2019 [employer] Viruses or Bacteria What?s got you [...] Disease Control and Prevention February 2014 [facility] Influenza A&B Rapidon 2019 Influenza A Negative Normal Negative [facility]osp ital Comment on above: Performed By: #### 1 [id number] #### [facility] (DEFAULT) [address] [place] [address] Influenza B Negative Normal Negative [facility] ital Comment on above: Performed By: #### 1 [id number] #### [facility] (DEFAULT) [address] [place] [address] 14976 Internal QC OK? Pass Normal [facility] Comment on above: Performed By: #### 1 [id number] #### [facility] (DEFAULT) [address] [place] [address] Strep Aon 09-15-2019 Strep procedure control Pass Normal [facility] Comment on above: Performed By: #### 6 [id number] #### [facility] (DEFAULT) [address] [place] [address] Streptococcus A Negative Normal Negative [facility] Comment on above: Performed By: #### 6 [id number] #### [facility] (DEFAULT) [address] [place] [address] XR Neck Soft Tissueon 2019 XR Neck [...] L 09/15/19 2:28 am Technologist: PATRICIA Johnson [facility] Vital Signs Date Time Vital Sign Value Performing Clinician Facility 07-25-2023 10:08-0500 Body weight 73.85 kg Noms Nurse [facility] 04-16-2022 14:30-0400 Body weight 79.74 kg Sravani Dumont Other [facility] Other 04-16-2022 14:30-0400 Diastolic blood pressure 74 mm[Hg] Sravani Dumont Other [facility] Other 04-16-2022 14:30-0400 SaO2% (BldA) [Mass fraction] 96 % Sravani Dumont Other [facility] Other 04-16-2022 14:30-0400 Systolic blood pressure 116 mm[Hg] Sravani Cobbrbacher Other [facility] Other 03-08-2021 14:00-0400 Body height 166.37 cm Sravani Julia Other [facility] Other 03-08-2021 14:00-0400 Body mass index (BMI) [Ratio] 29.33 kg/m2 Sravani Julia Other [facility] Other 03-08-2021 14:00-0400 Body weight 81.19 kg Sravani Julia Other [facility] Other 03-08-2021 14:00-0400 Diastolic blood pressure 66 mm[Hg] Sravani Julia Other [facility] Other 03-08-2021 14:00-0400 Respiratory rate 18 /min Sravani Julia Other [facility] Other 03-08-2021 14:00-0400 SaO2% (BldA) [Mass fraction] 100 % Sravani Julia Other [facility] Other 03-08-2021 14:00-0400 Systolic blood pressure 120 mm[Hg] Sravani Julia Other [facility] Other Encounters Encounter Date Encounter Type Care Provider Facility Start: 01-06-2024 End: 01-06-2024 ambulatory EDGAR COX Not Available Start: 12-23-2023 End: 12-23-2023 ambulatory WILLI ЕЛЕНА Not Available Start: 11-19-2023 End: 11-19-2023 ambulatory WILLI ЕЛЕНА Not Available Start: 11-05-2023 End: 11-05-2023 ambulatory EDGAR COX Not Available Start: 10-09-2023 End: 10-09-2023 ambulatory WILLI ЕЛЕНА Not Available Start: 07-29-2023 [facility] Result Encounter Willi Елена DO Work Phone: [facility] External Department Unsolicited Start: 07-29-2023 [facility]inis[facility] Result Encounter Willi Елена DO Work Phone: [facility] External Department Unsolicited Start: 07-25-2023 End: 07-25-2023 ambulatory WILLI ЕЛЕНА Not Available Start: 07-25-2023 End: 07-25-2023 Office outpatient visit 5 minutes [facility] Елена Nurse [facility] Comment on above: [place]: 9w3d Start: 07-18-2023 End: 07-18-2023 Emergency department patient visit [facility] Start: 11-28-2022 End: 11-28-2022 ambulatory Sravani Dumont Other [facility] Other Start: 11-28-2022 Telephone encounter Sravani Forrest her [facility] Start: 04-16-2022 End: 04-16-2022 ambulatory Sravani Dumont Other [facility] Other Start: 04-16-2022 Encounter for routin e child health examination without abnormal findings Sravani Dumont [facility] Start: 04-16-2022 Periodic preventive med est patient 12-17yrs Sravani Dumont [facility] Start: 05-08-2021 End: 05-08-2021 ambulatory Sravani Dumont Other [facility] Other Start: 05-08-2021 Office outpatient vi sit 15 minutes Sravani Dumont [facility] Start: 05-08-2021 Telephone encounter Sravani Forrest her [employer] Start: 03-08-2021 Office outpatient vi sit 15 minutes Sravani Dumont [facility] Procedures Date Procedure Procedure Detail Performing Clinician Start: 07-29-2023 [facility] BOX TEST SENT OUT Sheila Christiansen DO Work Phone: Start: 07-25-2023 Urnls dip stick/tabl et rgnt non-auto w/o micrscp Willi Christiansen DO Work Phone: Plan of Treatment Date Care Activity Detail Author Start: 08-26-2023 End: 08-26-2023 Patient encounter procedure 08/26/2023 1:50 PM EDT Routine [facility] [address] [place] [address] Willi Christiansen, DO [address] [place] [address] [facility] Start: 07-25-2023 End: 07-25-2024 ABO/Rh ABO/Rh Lab Routine Missed menses Expected: 07/25/2023 (Approximate), Expires: 07/25/2024 [facility] Comment on above: Expected: 07/25/2023 (Approximate), Expires: 07/25/2024 Start: 07-25-2023 End: 07-25-2024 Blood type and Indirect antibody screen panel - Blood Type and screen Lab Routine Missed menses Expected: 07/25/2023 (Approximate), Expires: 07/25/2024 [facility] Work Phone: Comment on above: Expected: 07/25/2023 (Approximate), Expires: 07/25/2024 Start: 07-25-2023 End: 07-25-2024 US Pelvis transvaginal US OB transvaginal Imaging Routine Missed menses Expected: 07/25/2023 (Approximate), Expires: 07/25/2024 [facility] Comment on above: Expected: 07/25/2023 (Approximate), Expires: 07/25/2024 Bacteria identified in Urine by Culture Urine culture Microbiology Routine Missed menses Ordered: 07/25/2023 [facility] Comment on above: Ordered: 07/25/2023 CBC W Auto Different ial panel - Blood CBC and differential Lab Routine Missed menses Ordered: 07/25/2023 [facility] Comment on above: Ordered: 07/25/2023 Hemoglobin A1c measurement Hemoglobin A1c Lab Routine Missed menses Ordered: 07/25/2023 [facility] Comment on above: Ordered: 07/25/2023 Hepatitis B virus surface Ag [Presence] in Serum or Plasma by Immunoassay Hepatitis B surface antigen Lab Routine Missed menses Ordered: 07/25/2023 [facility] Comment on above: Ordered: 07/25/2023 Hepatitis C virus Ab [Presence] in Serum or Plasma by Immunoassay Hepatitis C antibody Lab Routine Missed menses Ordered: 07/25/2023 [facility] Comment on above: Ordered: 07/25/2023 HIV-1/HIV-2 antigen/antibody combination immunoassay HIV-1 and HIV-2 antibodies Lab Routine Missed menses Ordered: 07/25/2023 [facility] Comment on above: Ordered: 07/25/2023 Reagin Ab [Presence] in Serum by RPR RPR Lab Routine Missed menses Ordered: 07/25/2023 [facility] Comment on above: Ordered: 07/25/2023 Rubella antibody, IgG Rubella an tibody, IgG Lab Routine Missed menses Ordered: 07/25/2023 [facility] Comment on above: Ordered: 07/25/2023 Payers Date Payer Category Payer Medicaid [place] [id number] 2023-Present [address] [place] [address] [id number] 2022 Medicaid [id number] 2021 [facility] [id number] 2016 Unknown [id number] 2004 Unknown [id number] 286 2004 Unknown [id number] 259 2004 Unknown [id number] 259 2004 Unknown [id number] 259 2004 Unknown [id number] 2.16.840.1.848286.3.579.2.1 259 2004 Unknown [id number] 2.16.840.1.130000.3.579.2.1 259 2004 Unknown [id number] 259 Social History Date Type Detail Facility Sex Assigned At [facility] Other Tobacco smoking stat [facility] Tobacco smoking consumption unknown [facility] Start: 06-03-2023 [facility] Start: 2004 Sex Assigned At Female [facility] Start: 07-07-2023 Gender identity Identifies as female gender (finding) [facility] Start: 07-07-2023 Sexual orientation Heterosexual (finding) [facility] History of Present illness Narrative 07-25-2023 [...] or undercooked meat, and stay away from [facility]. Patient has also been advised to [...] Jacquelyn Steel MA documented in this encounter [facility] Evaluation note 04-16-2022 Note Date & [...] understanding and agrees to plan of care. [facility] Other Evaluation note 05-08-2021 Note Date & [...] stool studies. Apr, Nausea (ICD-10 - R11.0) [facility] Other Evaluation note 03-08-2021 Note Date & [...] verbalized understanding and agreement with treatment plan. [facility] Other Evaluation note Note Date & Type Note Facility Evaluation note No Information [employer] Other Evaluation note Note Date & Type Note Facility Evaluation note Diagnosis Missed menses documented in this encounter [facility] History general Narrative - Reported Note Date & Type Note Facility History general Narrative - Reported Type Medical History [facility] Surgical History tonsilectomy and adenoidectomy [facility] [employer] Other Summary Purpose Family History No Family History Records FoundNo Family History Records FoundNo Family History Records FoundNo Family History Records Found Advance Directives No Advanced Directives Records FoundNo Advanced Directives Records FoundNo Advanced Directives Records FoundNo Advanced Directives Records Found Additional Source Comments INFORMATION SOURCE (unrecogn ized section and content) DATE CREATED AUTHOR 07/08/2020 [facility] DATE CREATED AUTHOR AUTHOR'S ORGANIZ ATION 08/03/2021 [facility] DATE CREATED AUTHOR AUTHOR'S ORGANIZ ATION 07/20/[address] [facility] DATE CREATED AUTHOR AUTHOR'S ORGANIZ ATION 01/08/2024 [facility] EPIC REASON FOR VISIT [...] BE BASED ON THE PRIMARY CLINICAL RECORDS. [employer] provides no warranty or guarantee of the accuracy or completeness of information in this document.
[2024-01-14 23:05] VITALS: BP 119/66; PULSE 106; TEMP 36.8
[2024-01-14 23:22] LABS: Bilirubin Urine NEGATIVE (NEGATIVE); Blood Urine NEGATIVE (NEGATIVE); Clarity Urine CLEAR (CLEAR); Color Urine LT. YELLOW (YELLOW); Glucose Urine UA NEGATIVE (NEGATIVE); Ketones Urine 15 mg/dL (NEGATIVE); Leukocyte Esterase Urine SMALL (NEGATIVE); Nitrite Urine NEGATIVE (NEGATIVE); Protein Urine NEGATIVE (NEG/TRACE); Specific Gravity Urine 1.025 (1.005-1.025); Urine Microscopic Indicated YES; Urobilinogen Urine 0.2 EU/dL (0.2-1.0)
[2024-01-14 23:30] LABS: RBC Urine 0-2 #/HPF (0-2)
[2024-01-14 23:36] LABS: Bacteria Urine LARGE #/HPF (NONE SEEN); Cast Seen? NONE SEEN #/LPF (NONE SEEN); Crystals Seen? None Seen #/HPF (None Seen); Mucus Urine LARGE (NONE SEEN); Squamous Epithelial Cell Urine MODERATE #/LPF (NONE/RARE); Urine Culture Indicated YES
== END 2024-01-15 | disposition home or self-care (01) ==
PROVIDERS: Admitting Provider Obstetrics & Gynecology; Visit Provider Obstetrics & Gynecology
DX: O26.893 Other specified pregnancy related conditions, third trimester (principal); M54.50 Low back pain, unspecified; R10.2 Pelvic and perineal pain; Z3A.34 34 weeks gestation of pregnancy
CPT/HCPCS: 59025; 81001; 87086; 87150; 87186; G0378; G0379

== ENCOUNTER 2024-01-26 19:53 | Outpatient (REF) | payer MEDICAID, SELFPAY ==
--- OUTSIDE RECORDS SUMMARY | 2024-01-26 20:10 | XMS_ITS | CCD ---
Author Organization [facility] Inform ion Partnership [facility] Care Team Providers Care Crime Scene Analyst Name Role Phone Sravani Dumont Unavailable JORGE [...] Drug Class(es) Dates Sig (Normalized) Sig (Original) [id number] 200 actuat albuterol 0.09 mg/actuat metered dose [...] Test Name Value Interpretation Reference Range Facility [facility] BOX TEST SENT OUTon 07-17 BOX TEST SENT OUT SENT 07/29 [facility] e HCG ( test) Ql (U)o n 07-25-2023 Interpretation and review of laboratory results Abnormal [facility] Preg Test, Ur Positive [facility] e Urinalysis macro (dipstick) panel (U)on 07-25-2023 Bilirubin, UA Negative Negative - 4(70) +++ mg/dL [facility] Blood, UA Negative Negative - 50 Onur/mcL [facility] Clarity, UA [facility] re Color, UA Yellow [facility] e Glucose, UA Negative Negative - 2000(110) ++++ mg/dL [facility] Interpretation and review of laboratory results Abnormal [facility] re Ketones, UA Positive Negative - 160(16) ++++ mg/dL [facility] Leukocytes, UA Positive Negative - 500+++ Todd/mcL [facility] Nitrite, UA Negative Negative - Positive [facility] pH, UA 7.0 5 - 9 [facility] e Protein, UA Positive Negative - 1999(20) ++++ mg/dL [facility] Spec Grav, UA 1.025 1 - 1.03 [facility] Urobilinogen, UA 1.0 0.2 - 12 mg/dL [facility] e BASIC METABOLIC PANLon 07-18 Anion gap [Moles/Vol] 9 mmol/L Normal 5-15 [facility] Comment on above: Performed By: #### B MP #### [facility] ([id number]) [address] [place] [address]69 Calcium [Mass/Vol] 9.1 mg/dL Normal 8.5-10.5 [facility] Comment on above: Performed By: #### B MP #### [facility] ([id number]) [address] [place] [address] 41380 Chloride [Moles/Vol] 104 mmol/L Normal 98-109 [facility] Comment on above: Performed By: #### B MP #### [facility] ([id number]) [address] [place] [address] 01839 CO2 [Moles/Vol] 21 mmol/L Low 22-32 [facility] Comment on above: Performed By: #### B MP #### [facility] ([id number]) [address] [place] [address] 58385 Creatinine [Mass/Vol] 0.58 mg/dL Normal 0.30-1.00 [facility] Comment on above: Result Comment: METH OD TRACEABLE TO IDMS STANDARD Performed By: #### B MP #### [facility] ([id number]) [address] [place] [address] 10665 eGFR (CKD-EPI) NON-RACE DEPENDENT >90 Normal >59 [facility] Comment on above: Result Comment: Reported eGFR is based on the CKD-EPI 2020 equation that does not use a race coefficient. Performed By: #### B MP #### [facility] ([id number]) [address] [place] [address] 16652 Glucose [Mass/Vol] 106 mg/dL High 65-99 [facility] Comment on above: Performed By: #### B MP #### [facility] ([id number]) [address] [place] [address] 15836 Potassium [Moles/Vol] 3.5 mmol/L Normal 3.5-5.0 [facility] Comment on above: Performed By: #### B MP #### [facility] ([id number]) [address] [place] [address] 92597 Sodium [Moles/Vol] 134 mmol/L Normal 134-146 [facility] Comment on above: Performed By: #### B MP #### [facility] ([id number]) [address] [place] [address] 49437 Urea nitrogen [Mass/Vol] 10 mg/dL Normal 5-23 [facility] Comment on above: Performed By: #### B MP #### [facility] ([id number]) [address] [place] [address] 78258 HCG ( test) Ql (U)o n 07-18-2023 Beta HCG ( test) Ql (U) Positive Abnormal NEG [facility] Comment on above: Performed By: #### 2 106-3 #### [facility] ([id number]) [address] [place] [address] 84688 SARS/FLU A+B/RSV by NAAT/Mol ecularon 07-18-2023 SARS/FLU [...] operators who are performing tests using either Snapsort or Elixr systems and is limited to laboratories that [...] repeat. Fact Sheet for Healthcare Providers: https://www.fda.gov/ media/588597/downloa d Fact Sheet for Patients: https://www.fda.gov/ media/532972/downloa d Normal [facility] Comment on above: Performed By: #### C OVFLR #### [facility] ([id number]) [address] [place] [address] [place] [address] URINE CULTUREon 07-18-2023 Bacteria identified Cx Nom (U) CULTURE RESULTS 50-100,000 ORGANISMS/ML NORMAL UROGENITAL ADELE Normal [facility] Comment on above: Performed By: #### 6 30-4 #### [facility] ([id number]) [address], [address] [place] [address] URN MACROSCOPIC NURon 2023 BILIRUBIN MARLYS Negative Normal NEG [facility] Comment on above: Performed By: #### N UM #### [facility] ([id number]) [address] [place] [address], [place] [address] BLOOD/HGB MARLYS Negative Normal NEG [facility] Comment on above: Performed By: #### N UM #### [facility] ([id number]) [address] [place] [address] 35075 GLUCOSE MARLYS Negative Normal [facility] Comment on above: Performed By: #### N UM #### [facility] ([id number]) [address] [place] [address] 54060 KETONES MARLYS 40 mg/dL Abnormal NEG [facility] Comment on above: Performed By: #### N UM #### [facility] ([id number]) [address] [place] [address] 72057 LEUKOCYTE ESTERASE MARLYS Small Abnormal NEG [facility] Comment on above: Performed By: #### N UM #### [facility] ([id number]) [address] [place] [address] 77579 NITRITE MARLYS Negative Normal NEG [facility] Comment on above: Performed By: #### N UM #### [facility] ([id number]) [address] [place] [address] 81693 PH MARLYS 7.5 Normal 5.0-8.[address] [facility] Comment on above: Performed By: #### N UM #### [facility] ([id number]) [address] [place] [address] 79747 PROTEIN MARLYS 30 mg/dL Abnormal NEG [facility] Comment on above: Performed By: #### N UM #### [facility] ([id number]) [address] [facility], [place] [address] SPECIFIC GRAVITY MARLYS 1.020 Normal 1.003-1.035 [facility] Comment on above: Performed By: #### N UM #### [facility] ([id number]) [address] [facility], [place] [address] UROBILINOGEN MARLYS 2.0 eu/dL High <1.[address] [facility] Comment on above: Performed By: #### N UM #### [facility] ([id number]) [address] [place] [address], [place] [address] COVID Quick Testingon 2020 Result Negative [facility] Other Quick Strepon 05-08-2021 S. pyogenes Org specific cx Ql (Throat) Negative [facility] Other Quick Strep [email or web address] [facility] [employer] Other XR chest 2V*on 05-08-2021 XR chest 2V* [facility] Main [place] [address] [place] [address] XRay Report Signed Patient: Shayla Martinez MR#: [id number] : 2005 Acct:[id number] Age/Sex: 15 / F ADM Date: 05/08/21 Loc: [facility] Room: Type: [facility] Attending Dr: Sravani Dumont APRN, NP-C [...] 2:43 PM Dictation Location: RADIO-PC-10 Transcribed By: [facility] 05/08/21 1443 Dictated By: Radha Joyce MD 05/08/21 144 Signed By: 05/08/21 1443 Normal [facility] XR chest 2V* [facility] [employer] Other XR chest 2V* [facility] Main [facility] [employer] Other XR chest 2V* [address] [place] [address] [employer] Other XR chest 2V* [place] [address] [facility] [employer] Other XR chest 2V* XRay Report [facility] Other XR chest 2V* Signed [facility] Other XR chest 2V* Patient: Shayla Martinez MR#: [id number] [place] [employer] Other XR chest 2V* [id number] [facility] Other XR chest 2V* : 2005 Acct:[id number] [facility] Other XR chest 2V* Age/Sex: 15 / F ADM Date: 05/08/21 [facility] Other XR chest 2V* Loc: [facility] Room: Type: [facility] Other XR chest 2V* Attending Dr: Sravani Dumont APRN, TROUBLE LINEMAN-C [facility] Other XR chest 2V* Ordering Provider: Sravani Dumont APRN, PROFESSIONAL EMPLOYER CONSULTANT [facility] Other XR chest 2V* Date of Service: 05/08/21 [facility] Other XR chest 2V* XR/XR chest 2V*: Cough;Wheezing [facility] Other XR chest 2V* Copies to: Sravani Dumont APRN, MAXIMILIANO [facility] Other XR chest 2V* PA AND LATERAL CHEST: [facility] Other XR chest 2V* CLINICAL HISTORY: Crackling and diminished lung sounds on exam today. Body aches, fever and [facility] Other XR chest 2V* productive cough. [facility] Other XR chest 2V* COMPARISON: None [facility] Other XR chest 2V* There is no focal parenchymal consolidation, effusion or pneumothorax. The cardiac, hilar and [facility] Other XR chest 2V* mediastinal silhouettes are within normal limits. There is no vascular congestion. The [facility] Other XR chest 2V* visualized bony thorax is intact. There is subtle reverse S-shaped scoliotic curvature. [facility] Other XR chest 2V* XR/XR chest 2V* [facility] Other XR chest 2V* IMPRESSION: [facility] Other XR chest 2V* NO ACUTE CARDIOPULMONARY ABNORMALITY. [facility] Other XR chest 2V* Impression dictated by: Radha Joyce M.D.05/08/2021 2:43 PM [facility] Other XR chest 2V* Dictation Location: [facility]--10 [facility] Other XR chest 2V* Transcribed By: VIC 05/08/21 [facility] Other XR chest 2V* Dictated By: Radha Joyce MD 05/08/21 1442 [facility] Other XR chest 2V* Signed By: [facility] Other XR chest 2V* 05/08/21 1440 [email or web address] [facility] [employer] Other C Throaton 09-17-2019 C Throat Ordered by Discern. Normal throat adele isolated No pathogens isolated [facility] Comment on above: Performed By: #### 6 [id number] ####[facility] (DEFAULT)[address] [place] [address] Coding Summaryon 09-16-2019 Coding Summary CODING DATE: 09/16/2019 [facility] STATUS: PAYOR: Medicaid HMO ADMIT DX: [...] Dee Bacon Date Saved: 09/16/2019 11:41 am [facility] Coding Summary CODING DATE: 09/16/2019 [facility] STATUS: Home PAYOR: Medicaid HMO ADMIT [...] Dee Bacon Date Saved: 09/16/2019 11:39 am [facility] Consent Formson 09-16-2019 Consent Forms [id number] [email or web address] [facility] ED Clinical Summaryon 2019 ED Clinical Summary [facility] - Emergency Department [address] [place] [address] ED Clinical Summary PERSON INFORMATION Name: SHAYLA MARTINEZ Age: 13 Years Sex: FEMALE : 2005 MRN: Acct#: Visit Reason: EENT and Dental; Foreign body in throat; FOREIGN OBJECT IN THROAT Arrival: 09/15/2019 01:16:53 Discharge: 09/15/2019 03:23:00 LOS: 000 02:07 Check In: 09/15/2019 01:16:53 Checkout:09/15/2019 03:23:00 Address: [address] [place] [address] PCP: PROVIDER INFORMATION Provider Role Assigned Unassigned [...] here with her mom, she is from [place], private vehicle arrival. Review of systems otherwise [...] no foreign body seen, no RPA, PPA, SCREEN ROOM OPERATOR, no anterior posterior or supraclavicular nodes, no [...] . Impression and Plan Diagnosis Pharyngeal irritation (WNC18-CW J39.2, Discharge, Medical) Plan Condition: Improved. Disposition: Discharged: time 09/15/2019 03:13:00. Patient was given the following educational materials: Pharyngitis, Vokf-ns-Pwnq, Pharyngitis, Opns-bf-Hgmb. Follow up with: JORGE HER Within 3 [...] Location: Home PATIENT EDUCATION INFORMATION Instructions: Pharyngitis, Mdmx-ch-Jtun Follow-Up: With: Address: When: JORGE HER [facility] [place] [id number] Business (1) Within 3 to 5 days Comments: home lozenges as needed, expect this to resolve call Ms Her for a recheck if this continues for three days you are welcomed to return anytime joy ignacio, er physician, jumana hicks DIAGNOSIS: Pharyngeal irritation Patient Understands: Yes - Patient/family/careg iver verbalizes understanding of instructions given Comment: [facility] ED Note - Physicianon 2019 ED Note [...] here with her mom, she is from [place], private vehicle arrival. Review of systems otherwise [...] no foreign body seen, no RPA, PPA, SCREEN ROOM OPERATOR, no anterior posterior or supraclavicular nodes, no [...] . Impression and Plan Diagnosis Pharyngeal irritation (HTQ82-BB J39.2, Discharge, Medical) Plan Condition: Improved. Disposition: Discharged: time 09/15/2019 03:13:00. Patient was given the following educational materials: Pharyngitis, Rrgn-ro-Uuty, Pharyngitis, Cebd-an-Pukk. Follow up with: JORGE HER Within 3 [...] on: 09/15/2019 03:13 EDT] Cristofer Ignacio DO [facility] ED Patient Education Noteon 09-15-2019 ED Patient Education Note Education Materials Infectious Disease Pharyngitis Pharyngitis is a sore throat (pharynx). This is when there is redness, pain, and swelling in your throat. Most of the time, this condition gets better on its own. In some cases, you may need medicine. Follow these instructions at home: ? Take zfay-bpc-wgsqvav and prescription medicines only as told by [...] 11/18/2008 Document Revised: 07/08/2017 Document Reviewed: 07/08/2017 [employer] Interactive Patient Education ? 2019 [employer] Normal [facility] ED Patient Summaryon 020 ED Patient Summary [facility] - Emergency Department [address] [place], [place] [id number] PATIENT DISCHARGE INSTRUCTIONS Patient Information Name: SHAYLA MARTINEZ Age: 13 Years Date of : 2005 Reason For Visit: EENT and Dental; Foreign body in throat; FOREIGN OBJECT IN THROAT Arrival Time: 09/15/2019 01:16:53 Primary Care Physician: Attending Physician: Cristofer Ignacio DO Comment: Visit Diagnosis: Diagnoses This Visit EENT and Dental ([id number]) Foreign body in throat ([id number]) Pharyngeal irritation (J39.2) Prescription Information: If you have been given a prescription for narcotics, seek immediate medical attention if you have any difficulty breathing or any sudden status changes such as confusion and sleepiness. If you or anyone you know is experiencing suicidal thoughts, mental health, alcohol and/or drug addiction problems; contact the [facility] 06/01 Crisis Hotline -Text 4HOPE to 589645. If you received any narcotics, sedation, or [...] legal documents With: Address: When: JORGE HER [address] [place], [place] [id number] Business (1) Within 3 to 5 days Comments: home lozenges as needed, expect this to resolve call Ms Her for a recheck if this continues for three days you are welcomed to return anytime joy ignacio, suzi physician, jumana hicks Medication Information: The exam and [facility] were for an urgent [...] so we can reach you if necessary. [facility] has provided you with a complete list of medications post discharge. Please inform your family mediator/provider of your visit and for further instruction [...] Follow these instructions at home: ? Take aluw-kij-ljdzgmj and prescription medicines only as told by [...] 11/18/2008 Document Revised: 07/08/2017 Document Reviewed: 07/08/2017 [employer] Interactive Patient Education ? 2019 [employer] Viruses or Bacteria What?s got you [...] for Disease Control and Prevention February 2014 [facility] Influenza A&B Rapidon 2019 Influenza A Negative Normal Negative [facility] ital Comment on above: Performed By: #### 1 [id number] #### [facility] (DEFAULT) [address] [place] [address] Influenza B Negative Normal Negative [facility] ital Comment on above: Performed By: #### 1 [id number] #### [facility] (DEFAULT) [address] [place] [address]63 Internal QC OK? Pass Normal [facility] Comment on above: Performed By: #### 1 [id number] #### [facility] (DEFAULT) [address] [place] [address] Strep Aon 09-15-2019 Strep procedure control Pass Normal [facility] l Comment on above: Performed By: #### 6 [id number] #### [facility] (DEFAULT) [address] [place] [address] Streptococcus A Negative Normal Negative [facility] Comment on above: Performed By: #### 6 [id number] #### [facility] (DEFAULT) [address] [place] [address] XR Neck Soft Tissueon 2019 XR Neck [...] L 09/15/19 2:28 am Technologist: PATRICIA Johnson [facility] Vital Signs Date Time Vital Sign Value Performing Clinician Facility 07-25-2023 10:08-0500 Body weight 73.85 kg Noms Nurse [facility] 04-16-2022 14:30-0400 Body weight 79.74 kg Sravani Dumont Other [facility] Other 04-16-2022 14:30-0400 Diastolic blood pressure 74 mm[Hg] Sravani Dumont Other [facility] Other 04-16-2022 14:30-0400 SaO2% (BldA) [Mass fraction] 96 % Sravani Dumont Other [facility] Other 04-16-2022 14:30-0400 Systolic blood pressure 116 mm[Hg] Sravani Cobbrbacher Other [facility] Other 03-08-2021 14:00-0400 Body height 166.37 cm Sravani Julia Other [facility] Other 03-08-2021 14:00-0400 Body mass index (BMI) [Ratio] 29.33 kg/m2 Sravani Julia Other [facility] Other 03-08-2021 14:00-0400 Body weight 81.19 kg Sravani Julia Other [facility] Other 03-08-2021 14:00-0400 Diastolic blood pressure 66 mm[Hg] Sravani Julia Other [facility] Other 03-08-2021 14:00-0400 Respiratory rate 18 /min Sravani Julia Other [facility] Other 03-08-2021 14:00-0400 SaO2% (BldA) [Mass fraction] 100 % Sravani Julia Other [facility] Other 03-08-2021 14:00-0400 Systolic blood pressure 120 mm[Hg] Sravani Julia Other [facility] Other Encounters Encounter Date Encounter Type Care [...] 07-18-2023 End: 07-18-2023 Emergency department patient visit [facility] Start: 11-28-2022 End: 11-28-2022 ambulatory Sravani Dumont Other [facility] Other Start: 11-28-2022 Telephone encounter Sravani Forrest her [facility] Start: 04-16-2022 End: 04-16-2022 ambulatory Sravani Dumont Other [facility] Other Start: 04-16-2022 Encounter for routin e child health examination without abnormal findings Sravani Dumont [facility] Start: 04-16-2022 Periodic preventive med est patient 12-17yrs Sravani Dumont [facility] Start: 05-08-2021 End: 05-08-2021 ambulatory Sravani Dumont Other [facility] Other Start: 05-08-2021 Office outpatient vi sit 15 minutes Sravani Dumont [facility] Start: 05-08-2021 Telephone encounter Sravani Forrest her [facility] Start: 03-08-2021 Office outpatient vi sit 15 minutes Sravani Dumont [facility] Procedures Date Procedure Procedure Detail Performing Clinician Start: 07-29-2023 [facility] BOX TEST SENT OUT Sheila Christiansen DO Work Phone: Start: 07-25-2023 Urnls dip stick/tabl et rgnt non-auto w/o micrscp Willi Christiansen DO Work Phone: Plan of Treatment Date Care Activity Detail Author Start: 08-26-2023 End: 08-26-2023 Patient encounter procedure 08/26/2023 1:50 PM EDT Routine [facility] [address] [address] Willi Christiansen, DO [address] [place] [address] [facility] Start: 07-25-2023 End: 07-25-2024 ABO/Rh ABO/Rh Lab Routine Missed menses Expected: 07/25/2023 (Approximate), Expires: 07/25/2024 [facility] Comment on above: Expected: 07/25/2023 (Approximate), Expires: 07/25/2024 Start: 07-25-2023 End: 07-25-2024 Blood type and Indirect antibody screen panel - Blood Type and screen Lab Routine Missed menses Expected: 07/25/2023 (Approximate), Expires: 07/25/2024 [facility] Work Phone: Comment on above: Expected: 07/25/2023 (Approximate), Expires: 07/25/2024 Start: 07-25-2023 End: 07-25-2024 US Pelvis transvaginal US OB transvaginal Imaging Routine Missed menses Expected: 07/25/2023 (Approximate), Expires: 07/25/2024 [facility] Comment on above: Expected: 07/25/2023 (Approximate), Expires: 07/25/2024 Bacteria identified in Urine by Culture Urine culture Microbiology Routine Missed menses Ordered: 07/25/2023 [facility] Comment on above: Ordered: 07/25/2023 CBC W Auto Different ial panel - Blood CBC and differential Lab Routine Missed menses Ordered: 07/25/2023 [facility] Comment on above: Ordered: 07/25/2023 Hemoglobin A1c measurement Hemoglobin A1c Lab Routine Missed menses Ordered: 07/25/2023 [facility] Comment on above: Ordered: 07/25/2023 Hepatitis B virus surface Ag [Presence] in Serum or Plasma by Immunoassay Hepatitis B surface antigen Lab Routine Missed menses Ordered: 07/25/2023 [facility] Comment on above: Ordered: 07/25/2023 Hepatitis C virus Ab [Presence] in Serum or Plasma by Immunoassay Hepatitis C antibody Lab Routine Missed menses Ordered: 07/25/2023 [facility] Comment on above: Ordered: 07/25/2023 HIV-1/HIV-2 antigen/antibody combination immunoassay HIV-1 and HIV-2 antibodies Lab Routine Missed menses Ordered: 07/25/2023 [facility] Comment on above: Ordered: 07/25/2023 Reagin Ab [Presence] in Serum by RPR RPR Lab Routine Missed menses Ordered: 07/25/2023 [facility] Comment on above: Ordered: 07/25/2023 Rubella antibody, IgG Rubella an tibody, IgG Lab Routine Missed menses Ordered: 07/25/2023 [facility] Comment on above: Ordered: 07/25/2023 Payers Date Payer Category Payer Medicaid [place] [id number] 2023-Present [address] [place] [address] [id number] 2022 Medicaid [id number] 2021 [facility] [id number] 2016 Unknown [id number] 2004 Unknown [id number] 286 2004 Unknown [id number] 259 2004 Unknown [id number] 259 2004 Unknown [id number] 259 2004 Unknown [id number] 259 2004 Unknown [id number] [id number] 259 2004 Unknown [id number] 259 Social History Date Type Detail Facility Sex Assigned At [facility] Other Tobacco smoking stat [facility] Tobacco smoking consumption unknown [facility] Start: 06-03-2023 [facility] Start: 2005 Sex Assigned At Female [facility] Start: 07-07-2023 Gender identity Identifies as female gender (finding) [facility] Start: 07-07-2023 Sexual orientation Heterosexual (finding) [facility] History of Present illness Narrative [...] or undercooked meat, and stay away from [facility] hospital. Patient has also been advised to [...] Jacquelyn Steel MA documented in this encounter [facility] Evaluation note 04-16-2022 Note Date [...] understanding and agrees to plan of care. [facility] Other Evaluation note 05-08-2021 Note Date & [...] stool studies. Apr, Nausea (ICD-10 - R11.0) [facility] Other Evaluation note 03-08-2021 Note Date & [...] verbalized understanding and agreement with treatment plan. [facility] Other Evaluation note Note Date & Type Note Facility Evaluation note No Information [employer] Other Evaluation note Note Date & Type Note Facility Evaluation note Diagnosis Missed menses documented in this encounter [facility] History general Narrative - Reported Note Date & Type Note Facility History general Narrative - Reported Type Medical History [facility] Surgical History tonsilectomy and adenoidectomy [facility] Other Summary Purpose Family History No Family History Records FoundNo Family History Records FoundNo Family History Records FoundNo Family History Records Found Advance Directives No Advanced Directives Records FoundNo Advanced Directives Records FoundNo Advanced Directives Records FoundNo Advanced Directives Records Found Additional Source Comments INFORMATION SOURCE (unrecogn ized section and content) DATE CREATED AUTHOR 07/08/2020 [facility] DATE CREATED AUTHOR AUTHOR'S ORGANIZ ATION 08/03/2021 [facility] DATE CREATED AUTHOR AUTHOR'S ORGANIZ ATION 07/20/2023 [facility] DATE CREATED AUTHOR AUTHOR'S ORGANIZ ATION 01/08/2024 [facility] EPIC REASON FOR VISIT [...] BE BASED ON THE PRIMARY CLINICAL RECORDS. [employer] provides no warranty or guarantee of the accuracy or completeness of information in this document.
== END 2024-01-26 19:54 | disposition home or self-care (01) ==
LOC: LAB 19:53
PROVIDERS: Visit Provider Obstetrics & Gynecology
DX: Z34.93 Encounter for supervision of normal pregnancy, unspecified, third trimester (principal)
CPT/HCPCS: 36415; 87081; 87150

== ENCOUNTER 2024-01-29 21:48 | Observation (INO) | payer MEDICAID, SELFPAY ==
--- OUTSIDE RECORDS SUMMARY | 2024-01-29 21:54 | XMS_ITS | CCD ---
Author Organization [facility] Inform ion Partnership [facility] Care Team Providers Care Job Change Crew Member Name Role Phone Sravani Dumont Unavailable [phone] JORGE HER Primary Care Unavailable JEROMY TIJERINA Attending Unavailable Unavailable Primary Care Provider WILLI Pettit Attending Unavailable EDGAR COX Attending Unavailable WILLI CHRISTIANSEN Attending Unavailable WILLI CHRISTIANSEN Attending Unavailable EDGAR COX Attending Unavailable WILLI CHRISTIANSEN Attending Unavailable Allergies Allergy Classification Reported Allergen(s) Allergy Type Date of Onset Reaction(s) Facility (3 sources) Amoxicillin; Translations: [AMOXICILLIN] Drug Allergy 12-27-2022 [facility] Repository Medications Current Medications Medication Drug Class(es) Dates Sig (Normalized) Sig (Original) [id number] 200 actuat albuterol 0.09 mg/actuat metered dose [...] () 27-0.8 MG tablet (2 sources) Start: take 1 tablet by mouth in the [...] Test Name Value Interpretation Reference Range Facility [facility] BOX TEST SENT OUTon 07-17 BOX TEST SENT OUT SENT 07/29 [facility] HCG ( test) Ql (U)o n 07-25-2023 Interpretation and review of laboratory results Abnormal [facility] Preg Test, Ur Positive [facility] Urinalysis macro (dipstick) panel (U)on 07-25-2023 Bilirubin, UA Negative Negative - 4(70) +++ mg/dL [facility] Blood, UA Negative Negative - 50 Onur/mcL [facility] Clarity, UA Clear [facility] re Color, UA Yellow [facility] e Glucose, UA Negative Negative - 2000(110) ++++ mg/dL [facility] Interpretation and review of laboratory results Abnormal [facility] Ketones, UA Positive Negative - 160(16) ++++ mg/dL [facility] Leukocytes, UA Positive Negative - 500+++ Todd/mcL [facility] Nitrite, UA Negative Negative - Positive [facility] pH, UA 7.0 5 - 9 [facility] e Protein, UA Positive Negative - 2000(20) ++++ mg/dL [facility] Spec Grav, UA 1.025 1 - 1.03 [facility] Urobilinogen, UA 1.0 0.2 - 12 mg/dL [facility] BASIC METABOLIC PANLon 07-18 Anion gap [Moles/Vol] 9 mmol/L Normal 5-15 [facility] Comment on above: Performed By: #### B MP #### [facility] ([id number]) [address] [place] [address] 85856 Calcium [Mass/Vol] 9.1 mg/dL Normal 8.5-10.5 [facility] Comment on above: Performed By: #### B MP #### [facility] ([id number]) [address] [place] [address] 28361 Chloride [Moles/Vol] 104 mmol/L Normal 98-109 [facility] Comment on above: Performed By: #### B MP #### [facility] ([id number]) [address] [place] [address] 03281 CO2 [Moles/Vol] 21 mmol/L Low 22-[address] [facility] Comment on above: Performed By: #### B MP #### [facility] ([id number]) [address] [place] [address] 76540 Creatinine [Mass/Vol] 0.58 mg/dL Normal 0.30-1.00 [facility] Comment on above: Result Comment: METH OD TRACEABLE TO IDMS STANDARD Performed By: #### B MP #### [facility] ([id number]) [address] [place] [address] 82125 eGFR (CKD-EPI) NON-RACE DEPENDENT >90 Normal >59 [facility] Comment on above: Result Comment: Reported eGFR is based on the CKD-EPI 2020 equation that does not use a race coefficient. Performed By: #### B MP #### [facility] ([id number]) [address] [place] [address] 31081 Glucose [Mass/Vol] 106 mg/dL High 65-99 [facility] Comment on above: Performed By: #### B MP #### [facility] ([id number]) [address] [place] [address] 88193 Potassium [Moles/Vol] 3.5 mmol/L Normal 3.5-5.0 [facility] Comment on above: Performed By: #### B MP #### [facility] ([id number]) [address] [place] [address] 55585 Sodium [Moles/Vol] 134 mmol/L Normal 134-146 [facility] Comment on above: Performed By: #### B MP #### [facility] ([id number]) [address] [place] [address] 42877 Urea nitrogen [Mass/Vol] 10 mg/dL Normal 5-23 [facility] Comment on above: Performed By: #### B MP #### [facility] ([id number]) [address] [place] [address] 03130 HCG ( test) Ql (U)o n 07-18-2023 Beta HCG ( test) Ql (U) Positive Abnormal NEG [facility] Comment on above: Performed By: #### 2 106-3 #### [facility] ([id number]) [address] [place] [address] 45396 SARS/FLU A+B/RSV by NAAT/Mol ecularon 07-18-2023 SARS/FLU [...] operators who are performing tests using either [employer] or [employer] systems and is limited to laboratories that [...] repeat. Fact Sheet for Healthcare Providers: https://www.fda.gov/ media/554470/downloa d Fact Sheet for Patients: https://www.fda.gov/ media/964442/downloa d Normal [facility] Comment on above: Performed By: #### C OVFLR #### [facility] ([id number]) [address] [place] [address], [place] [address] URINE CULTUREon 07-18-2023 Bacteria identified Cx Nom (U) CULTURE RESULTS 50-100,000 ORGANISMS/ML NORMAL UROGENITAL ADELE Normal [facility] Comment on above: Performed By: #### 6 30-4 #### [facility] ([id number]) [address] [place] [address], [address] [place] [address] URN MACROSCOPIC NURon 2023 BILIRUBIN MARLYS Negative Normal NEG [facility] Comment on above: Performed By: #### N UM #### [facility] ([id number]) [address] [place] [address], [place] [address] BLOOD/HGB MARLYS Negative Normal NEG [facility] Comment on above: Performed By: #### N UM #### [facility] ([id number]) [address] [place] [address], [place] [address] GLUCOSE MARLYS Negative Normal NEG [facility] Comment on above: Performed By: #### N UM #### [facility] ([id number]) [address] [place] [address] 90049 KETONES MARLYS 40 mg/dL Abnormal NEG [facility] Comment on above: Performed By: #### N UM #### [facility] ([id number]) [address] [place] [address] 57993 LEUKOCYTE ESTERASE MARLYS Small Abnormal NEG [facility] Comment on above: Performed By: #### N UM #### [facility] ([id number]) [address] [place] [address] 58505 NITRITE MARLYS Negative Normal NEG [facility] Comment on above: Performed By: #### N UM #### [facility] ([id number]) [address] [place] [address], [place] [address] PH MARLYS 7.5 Normal 5.0-8.5 [facility] Comment on above: Performed By: #### N UM #### [facility] ([id number]) [address] [place] [address], [place] [address] PROTEIN MARLYS 30 mg/dL Abnormal NEG [facility] Comment on above: Performed By: #### N UM #### [facility] ([id number]) [address] [facility] [place] [address] SPECIFIC GRAVITY MARLYS 1.020 Normal 1.003-1.035 [facility] Comment on above: Performed By: #### N UM #### [facility] ([id number]) [address] [facility], [place] [address] UROBILINOGEN MARLYS 2.0 eu/dL High <1.1 [facility] Comment on above: Performed By: #### N UM #### [facility] ([id number]) [address] [facility], [place] [address] COVID Quick Testingon 2020 Result Negative [employer] Other Quick Strepon 05-08-2021 S. pyogenes Org specific cx Ql (Throat) Negative [employer] Other Quick Strep [facility] [facility] Other XR chest 2V*on 05-08-2021 XR chest 2V* [facility] Main [place] [address] [place] [address] XRay Report Signed Patient: Shayla Martinez MR#: [id number] : 2005 Acct:[id number] Age/Sex: 15 / F ADM Date: 05/08/21 Loc: [facility] Room: Type: [facility] Attending Dr: Sravani Dumont APRN, NP-C Ordering [...] Radha Joyce M.D.05/08/2021 2:43 PM Dictation Location: RADIO--10 Transcribed By: [facility] 05/08/21 1443 Dictated By: Radha Joyce MD 05/08/21 1442 Signed By: 05/08/21 1443 Normal [facility] XR chest 2V* [facility] [employer] Other XR chest 2V* [facility] Main [facility] [employer] Other XR chest 2V* [address] [place] [address] [employer] Other XR chest 2V* [place] [address] [facility] [employer] Other XR chest 2V* XRay Report [employer] Other XR chest 2V* Signed [employer] Other XR chest 2V* Patient: Shayla Martinez MR#: [id number] [place] [facility] Other XR chest 2V* [id number] [employer] Other XR chest 2V* : 2005 Acct:[id number] [employer] Other XR chest 2V* Age/Sex: 15 / F ADM Date: 05/08/21 [employer] Other XR chest 2V* Loc: [facility] Room: Type: [facility] [employer] Other XR chest 2V* Attending Dr: Sravani Dumont APRN, CHILD WELFARE SOCIAL WORKER-C [employer] Other XR chest 2V* Ordering Provider: Sravani Dumont APRN, GARDEN [employer] MECH[employer] Other XR chest 2V* Date of Service: 05/08/21 [employer] Other XR chest 2V* XR/XR chest 2V*: Cough;Wheezing [employer] Other XR chest 2V* Copies to: Sravani Dumont APRN, MAXIMILIANO [employer] Other XR chest 2V* PA AND LATERAL CHEST: [employer] Other XR chest 2V* CLINICAL HISTORY: Crackling and diminished lung sounds on exam today. Body aches, fever and [employer] Other XR chest 2V* productive cough. [employer] Other XR chest 2V* COMPARISON: None [employer] Other XR chest 2V* There is no focal parenchymal consolidation, effusion or pneumothorax. The cardiac, hilar and [employer] Other XR chest 2V* mediastinal silhouettes are within normal limits. There is no vascular congestion. The [employer] Other XR chest 2V* visualized bony thorax is intact. There is subtle reverse S-shaped scoliotic curvature. [employer] Other XR chest 2V* XR/XR chest 2V* [employer] Other XR chest 2V* IMPRESSION: [employer] Other XR chest 2V* NO ACUTE CARDIOPULMONARY ABNORMALITY. [employer] Other XR chest 2V* Impression dictated by: Radha Joyce M.D.05/08/2021 2:43 PM [employer] Other XR chest 2V* Dictation Location: [facility]- [employer] Other XR chest 2V* Transcribed By: VIC 05/08/21 1443 [employer] Other XR chest 2V* Dictated By: Radha Joyce MD 05/08/21 1442 [employer] Other XR chest 2V* Signed By: [facility] [employer] Other XR chest 2V* 05/08/21 1443 [facility] [employer] Other C Throaton 09-17-2019 C Throat Ordered by Discern. Normal throat adele isolated No pathogens isolated [facility] Comment on above: Performed By: #### 6 [id number], [id number] ####[facility] (DEFAULT)[address] [place] [address] Coding Summaryon 09-16-2019 Coding Summary CODING DATE: 09/16/2019 [facility] STATUS: PAYOR: Medicaid HMO ADMIT DX: [...] Dee Bacon Date Saved: 09/16/2019 11:41 am [facility] Coding Summary CODING DATE: 09/16/2019 [facility] STATUS: Home PAYOR: Medicaid HMO ADMIT [...] Dee Bacon Date Saved: 09/16/2019 11:39 am [facility] Consent Formson 09-16-2019 Consent Forms [id number] [facility] ED Clinical Summaryon 2019 ED Clinical Summary [facility] - Emergency Department [address] [place] [address] [id number] ED Clinical Summary PERSON INFORMATION Name: SHAYLA MARTINEZ Age: 13 Years Sex: FEMALE : 2005 MRN: Acct#: Visit Reason: EENT and Dental; Foreign body in throat; FOREIGN OBJECT IN THROAT Arrival: 09/15/2019 01:16:53 Discharge: 09/15/2019 03:23:00 LOS: 000 02:07 Check In: 09/15/2019 01:16:53 Checkout:09/15/2019 03:23:00 Address: [address] [place], [place] [id number] PCP: PROVIDER INFORMATION Provider Role Assigned Unassigned [...] here with her mom, she is from [place], private vehicle arrival. Review of systems otherwise [...] no foreign body seen, no RPA, PPA, LACING PRESSER, no anterior posterior or supraclavicular nodes, no [...] . Impression and Plan Diagnosis Pharyngeal irritation (PZP78-PC J39.2, Discharge, Medical) Plan Condition: Improved. Disposition: Discharged: time 09/15/2019 03:13:00. Patient was given the following educational materials: Pharyngitis, Bdke-cc-Azli, Pharyngitis, Jxdo-rn-Btxo. Follow up with: JORGE HER Within 3 [...] Location: Home PATIENT EDUCATION INFORMATION Instructions: Pharyngitis, Eciy-aj-Nhkd Follow-Up: With: Address: When: JORGE HER [address] [place], [place] [id number] Business (1) Within 3 to 5 days Comments: home lozenges as needed, expect this to resolve call Ms Her for a recheck if this continues for three days you are welcomed to return anytime joy ignacio, er physician, jumana hicks DIAGNOSIS: Pharyngeal irritation Patient Understands: Yes - Patient/family/careg iver verbalizes understanding of instructions given Comment: [facility] ED Note - Physicianon 2019 ED [...] here with her mom, she is from [place], private vehicle arrival. Review of systems otherwise [...] no foreign body seen, no RPA, PPA, LACING PRESSER, no anterior posterior or supraclavicular nodes, no [...] . Impression and Plan Diagnosis Pharyngeal irritation (XCL61-UR J39.2, Discharge, Medical) Plan Condition: Improved. Disposition: Discharged: time 09/15/2019 03:13:00. Patient was given the following educational materials: Pharyngitis, Iajd-yi-Bpbp, Pharyngitis, Kkhl-es-Xwyv. Follow up with: JORGE HER Within 3 [...] on: 09/15/2019 03:13 EDT] Cristofer Ignacio DO [facility] ED Patient Education Noteon 09-15-2019 ED Patient Education Note Education Materials Infectious Disease Pharyngitis Pharyngitis is a sore throat (pharynx). This is when there is redness, pain, and swelling in your throat. Most of the time, this condition gets better on its own. In some cases, you may need medicine. Follow these instructions at home: ? Take ilmz-pvd-xmqjmyh and prescription medicines only as told by [...] 11/18/2008 Document Revised: 07/08/2017 Document Reviewed: 07/08/2017 Nursing Home Quality Interactive Patient Education ? 2019 [employer] Normal [facility] ED Patient Summaryon 020 ED Patient Summary [facility] - Emergency Department [address] [place], [place] [id number] PATIENT DISCHARGE INSTRUCTIONS Patient Information Name: SHAYLA MARTINEZ Age: 13 Years Date of : 2005 Reason For Visit: EENT and Dental; Foreign body in throat; FOREIGN OBJECT IN THROAT Arrival Time: 09/15/2019 01:16:53 Primary Care Physician: Attending Physician: Cristofer Ignacio DO Comment: Visit Diagnosis: Diagnoses This Visit EENT and Dental ([id number]) Foreign body in throat ([id number]) Pharyngeal irritation (J39.2) Prescription Information: If you have been given a prescription for narcotics, seek immediate medical attention if you have any difficulty breathing or any sudden status changes such as confusion and sleepiness. If you or anyone you know is experiencing suicidal thoughts, mental health, alcohol and/or drug addiction problems; contact the [facility] 06/01 Crisis Hotline -Text 4HOPE to 504956. If you received any narcotics, sedation, or [...] legal documents With: Address: When: JORGE HER [address] [place], [place] [id number] Business (1) Within 3 to 5 days Comments: home lozenges as needed, expect this to resolve call Ms Her for a recheck if this continues for three days you are welcomed to return anytime joy ignacio, suzi physician, jumana hicks Medication Information: The exam and treatment you received today in the [facility] Emergency Department were for an urgent problem and are not intended as complete care. It is important for you to follow up with a doctor, nurse practitioner, or physician?s resident programs assistant for ongoing care. If your symptoms [...] so we can reach you if necessary. [facility] Emergency Department has provided you with a complete list of medications post discharge. Please inform your personnel training officer/provider of your visit and for further instruction [...] Follow these instructions at home: ? Take lark-jev-dkaiheu and prescription medicines only as told by [...] 11/18/2008 Document Revised: 07/08/2017 Document Reviewed: 07/08/2017 Nursing Home Quality Interactive Patient Education ? 2019 Nursing [employer] Viruses or Bacteria What?s got you [...] for Disease Control and Prevention February 2014 [facility] Influenza A&B Rapidon 2019 Influenza A Negative Normal Negative [facility] Comment on above: Performed By: #### 1 [id number] #### [facility] (DEFAULT) [address] [place] [address] 270[address] Influenza B Negative Normal Negative [facility] Comment on above: Performed By: #### 1 [id number] #### [facility] (DEFAULT) [address] [place] [address] Internal QC OK? Pass Normal [facility] Comment on above: Performed By: #### 1 [id number] #### [facility] (DEFAULT) [address] [place] [address] Strep Aon 09-15-2019 Strep procedure control Pass Normal [facility] l Comment on above: Performed By: #### 6 [id number], [id number] #### [facility] (DEFAULT) [address] [place] [address] Streptococcus A Negative Normal Negative [facility] Comment on above: Performed By: #### 6 [id number], [id number] #### [facility] (DEFAULT) [address] [place] [address] XR Neck Soft Tissueon 2019 XR Neck [...] L 09/15/19 2:28 am Technologist: PATRICIA Johnson [facility] Vital Signs Date Time Vital Sign Value Performing Clinician Facility 07-25-2023 10:08-0500 Body weight 73.85 kg [facility] Nurse [facility] 04-16-2022 14:30-0400 Body weight 79.74 kg Sravani Dumont Other [facility] Other 04-16-2022 14:30-0400 Diastolic blood pressure 74 mm[Hg] Sravani Dumont Other [facility] Other 04-16-2022 14:30-0400 SaO2% (BldA) [Mass fraction] 96 % Sravani Dumont Other [facility] Other 04-16-2022 14:30-0400 Systolic blood pressure 116 mm[Hg] Sravani Julia Other [facility] Other 03-08-2021 14:00-0400 Body height 166.37 cm Sravani Julia Other [facility] Other 03-08-2021 14:00-0400 Body mass index (BMI) [Ratio] 29.33 kg/m2 Sravani Julia Other [facility] Other 03-08-2021 14:00-0400 Body weight 81.19 kg Sravani Julia Other [facility] Other 03-08-2021 14:00-0400 Diastolic blood pressure 66 mm[Hg] Sravanifili Dumont Other [facility] Other 03-08-2021 14:00-0400 Respiratory rate 18 /min Sravain Julia Other [facility] Other 03-08-2021 14:00-0400 SaO2% (BldA) [Mass fraction] 100 % Sravani Julia Other [facility] Other 03-08-2021 14:00-0400 Systolic blood pressure 120 mm[Hg] Sravani Julia Other [facility] Other Encounters Encounter Date Encounter Type Care Provider Facility Start: 01-26-2024 End: 01-26-2024 ambulatory WILLI ЕЛЕНА Not Available Start: 01-06-2024 End: 01-06-2024 ambulatory EDGAR COX [...] 07-18-2023 End: 07-18-2023 Emergency department patient visit [facility] Start: 11-28-2022 End: 11-28-2022 ambulatory Sravani Dumont Other [facility] Other Start: 11-28-2022 Telephone encounter Sravani sims [facility] Start: 04-16-2022 End: 04-16-2022 ambulatory Sravani Dumont Other [facility] Other Start: 04-16-2022 Encounter for routin e child health examination without abnormal findings Sravani Dumont [facility] Start: 04-16-2022 Periodic preventive med est patient 12-17yrs Sravani Dumont [facility] Start: 05-08-2021 End: 05-08-2021 ambulatory Sravani Dumont Other [facility] Other Start: 05-08-2021 Office outpatient vi sit 15 minutes Sravani Dumont [facility] Start: 05-08-2021 Telephone encounter Sravani Lon her [facility] Start: 03-08-2021 Office outpatient vi sit 15 minutes Sravani Dumont [facility] Procedures Date Procedure Procedure Detail Performing Clinician Start: 07-29-2023 [facility] BOX TEST SENT OUT Sheila christibenita Christiansen DO Work Phone: Start: 07-25-2023 Urnls dip stick/tabl et rgnt non-auto w/o micrscp Willi Christiansen DO Work Phone: Plan of Treatment Date Care Activity Detail Author Start: 08-26-2023 End: 08-26-2023 Patient encounter procedure 08/26/2023 1:50 PM EDT Routine [facility] [address] [place] [address] Willi Christiansen, DO [address], [place] [id number] [facility] Start: 07-25-2023 End: 07-25-2024 ABO/Rh ABO/Rh Lab Routine Missed menses Expected: 07/25/2023 (Approximate), Expires: 07/25/2024 [facility] Comment on above: Expected: 07/25/2023 (Approximate), Expires: 07/25/2024 Start: 07-25-2023 End: 07-25-2024 Blood type and Indirect antibody screen panel - Blood Type and screen Lab Routine Missed menses Expected: 07/25/2023 (Approximate), Expires: 07/25/2024 [facility] Work Phone: Comment on above: Expected: 07/25/2023 (Approximate), Expires: 07/25/2024 Start: 07-25-2023 End: 07-25-2024 US Pelvis transvaginal US OB transvaginal Imaging Routine Missed menses Expected: 07/25/2023 (Approximate), Expires: 07/25/2024 [facility] Comment on above: Expected: 07/25/2023 (Approximate), Expires: 07/25/2024 Bacteria identified in Urine by Culture Urine culture Microbiology Routine Missed menses Ordered: 07/25/2023 [facility] Comment on above: Ordered: 07/25/2023 CBC W Auto Different ial panel - Blood CBC and differential Lab Routine Missed menses Ordered: 07/25/2023 [facility] Comment on above: Ordered: 07/25/2023 Hemoglobin A1c measurement Hemoglobin A1c Lab Routine Missed menses Ordered: 07/25/2023 [facility] Comment on above: Ordered: 07/25/2023 Hepatitis B virus surface Ag [Presence] in Serum or Plasma by Immunoassay Hepatitis B surface antigen Lab Routine Missed menses Ordered: 07/25/2023 [facility] Comment on above: Ordered: 07/25/2023 Hepatitis C virus Ab [Presence] in Serum or Plasma by Immunoassay Hepatitis C antibody Lab Routine Missed menses Ordered: 07/25/2023 [facility] Comment on above: Ordered: 07/25/2023 HIV-1/HIV-2 antigen/antibody combination immunoassay HIV-1 and HIV-2 antibodies Lab Routine Missed menses Ordered: 07/25/2023 [facility] Comment on above: Ordered: 07/25/2023 Reagin Ab [Presence] in Serum by RPR RPR Lab Routine Missed menses Ordered: 07/25/2023 [facility] Comment on above: Ordered: 07/25/2023 Rubella antibody, IgG Rubella an tibody, IgG Lab Routine Missed menses Ordered: 07/25/2023 [facility] Comment on above: Ordered: 07/25/2023 Payers Date Payer Category Payer Medicaid [place] [employer] [place] [employer] [id number] 2023-Present [address] [place] [address] [id number] 2022 Medicaid [id number] 2021 [facility] [id number] 2016 Unknown [id number] 2004 Unknown [id number] 286 2004 Unknown [id number] 259 2004 Unknown [id number] 259 2004 Unknown [id number] 2.16.840.1.401451.3.579.2.1 259 2004 Unknown [id number] 2.16.840.1.506117.3.579.2.1 259 2004 Unknown [id number] 2.16.840.1.333677.3.579.2.1 259 2004 Unknown [id number] 2.16.840.1.415494.3.579.2.1 259 2004 Unknown [id number] 259 Social History Date Type Detail Facility Sex Assigned At [facility] Other Tobacco smoking stat [facility] Tobacco smoking consumption unknown [facility] Start: 06-03-2023 [facility] Start: 2004 Sex Assigned At Female [facility] Start: 07-07-2023 Gender identity Identifies as female gender (finding) [facility] Start: 07-07-2023 Sexual orientation Heterosexual (finding) [facility] History of Present illness Narrative [...] Jacquelyn Steel MA documented in this encounter [facility] Evaluation note 04-16-2022 Note Date & Type [...] understanding and agrees to plan of care. [facility] Other Evaluation note 05-08-2021 Note Date & [...] stool studies. Apr, Nausea (ICD-10 - R11.0) [facility] Other Evaluation note 03-08-2021 Note Date & [...] verbalized understanding and agreement with treatment plan. [facility] Other Evaluation note Note Date & Type Note Facility Evaluation note No Information [facility] [employer] Other Evaluation note Note Date & Type Note Facility Evaluation note Diagnosis Missed menses documented in this encounter [facility] History general Narrative - Reported Note Date & Type Note Facility History general Narrative - Reported Type Medical History [facility] Surgical History tonsilectomy and adenoidectomy [facility] [employer] Other Summary Purpose Family History No Family History Records FoundNo Family History Records FoundNo Family History Records FoundNo Family History Records Found Advance Directives No Advanced Directives Records FoundNo Advanced Directives Records FoundNo Advanced Directives Records FoundNo Advanced Directives Records Found Additional Source Comments INFORMATION SOURCE (unrecogn ized section and content) DATE CREATED AUTHOR 07/08/2020 [facility] DATE CREATED AUTHOR AUTHOR'S ORGANIZ ATION 08/03/2021 [facility] DATE CREATED AUTHOR AUTHOR'S ORGANIZ ATION 07/20/2023 [facility] DATE CREATED AUTHOR AUTHOR'S ORGANIZ ATION 01/27/2024 [facility] EPIC REASON FOR VISIT (unrecogniz [...] BE BASED ON THE PRIMARY CLINICAL RECORDS. [employer] provides no warranty or guarantee of the accuracy or completeness of information in this document.
[2024-01-29 22:03] VITALS: TEMP 36.3
[2024-01-29 22:04] VITALS: BP 144/70; PULSE 99
[2024-01-29 22:23] VITALS: BP 133/76; PULSE 113
== END 2024-01-29 22:45 | disposition home or self-care (01) ==
LOC: FBC 21:51
PROVIDERS: Admitting Provider Obstetrics & Gynecology; Visit Provider Obstetrics & Gynecology
DX: O36.8190 Decreased fetal movements, unspecified trimester, not applicable or unspecified (principal); Z3A.00 Weeks of gestation of pregnancy not specified
CPT/HCPCS: 59025; G0378; G0379

== ENCOUNTER 2024-02-12 01:54 | Inpatient (IN) | payer MEDICAID, SELFPAY ==
[2024-02-12] VITALS (44 sets, daily range): BP systolic 108–165; BP diastolic 57–83; PULSE 65–103; TEMP 36.6–38.1
--- OUTSIDE RECORDS SUMMARY | 2024-02-12 01:56 | XMS_ITS | CCD ---
Author Organization [facility] Inform ion Partnership [facility] Care Team Providers Care Subscription Agent Name Role Phone Sravani Dumont Unavailable [phone] JORGE HER Primary Care Unavailable JEROMY TIJERINA Attending Unavailable Unavailable Primary Care Provider WILLI Pettit Attending Unavailable EDGAR COX Attending Unavailable WILLI CHRISTIANSEN Attending Unavailable WILLI CHRISTIANSEN Attending Unavailable EDGAR COX Attending Unavailable WILLI CHRISTIANSEN Attending Unavailable WILLI CHRISTIANSEN Attending Unavailable Allergies Allergy Classification Reported Allergen(s) Allergy Type Date of Onset Reaction(s) Facility (3 sources) Amoxicillin; Translations: [AMOXICILLIN] Drug Allergy 12-27-2022 [facility] Medications Current Medications Medication Drug Class(es) Dates Sig (Normalized) Sig (Original) [id number] 200 actuat albuterol 0.09 mg/actuat metered dose [...] Results Test Name Value Interpretation Reference Range [facility] BOX TEST SENT OUTon 07-17 BOX TEST SENT OUT SENT 07/29 [facility] ( test) Ql (U)o n 07-25-2023 Interpretation and review of laboratory results Abnormal [facility] Preg Test, Ur Positive [facility] Urinalysis macro (dipstick) panel (U)on 07-25-2023 Bilirubin, UA Negative Negative - 4(70) +++ mg/dL [facility] Blood, UA Negative Negative - 50 Onur/mcL [facility] Clarity, UA Clear [facility] re Color, UA Yellow [facility] e Glucose, UA Negative Negative - 2000(110) ++++ mg/dL [facility] Interpretation and review of laboratory results Abnormal [facility] re Ketones, UA Positive Negative - 160(16) ++++ mg/dL [facility] Leukocytes, UA Positive Negative - 500+++ Todd/mcL [facility] Nitrite, UA Negative Negative - Positive [facility] pH, UA 7.0 5 - 9 [facility] Protein, UA Positive Negative - 1999(20) ++++ mg/dL [facility] Spec Grav, UA 1.025 1 - 1.03 [facility] Urobilinogen, UA 1.0 0.2 - 12 mg/dL [facility] e BASIC METABOLIC PANLon 07-18 Anion gap [Moles/Vol] 9 mmol/L Normal 5-15 [facility] Comment on above: Performed By: #### B MP #### [facility] ([id number]) [address] [place] [address] 58229 Calcium [Mass/Vol] 9.1 mg/dL Normal 8.5-10.5 [facility] Comment on above: Performed By: #### B MP #### [facility] ([id number]) [address] [place] [address] 73153 Chloride [Moles/Vol] 104 mmol/L Normal 98-109 [facility] Comment on above: Performed By: #### B MP #### [facility] ([id number]) [address] [place] [address] 05129 CO2 [Moles/Vol] 21 mmol/L Low 22-32 [facility] Comment on above: Performed By: #### B MP #### [facility] ([id number]) [address] [place] [address] 94732 Creatinine [Mass/Vol] 0.58 mg/dL Normal 0.30-1.00 [facility] Comment on above: Result Comment: METH OD TRACEABLE TO IDMS STANDARD Performed By: #### B MP #### [facility] ([id number]) [address] [place] [address] 29051 eGFR (CKD-EPI) NON-RACE DEPENDENT >90 Normal >59 [facility] Comment on above: Result Comment: Reported eGFR is based on the CKD-EPI 2020 equation that does not use a race coefficient. Performed By: #### B MP #### [facility] ([id number]) [address] [place] [address] 72360 Glucose [Mass/Vol] 106 mg/dL High 65-99 [facility] Comment on above: Performed By: #### B MP #### [facility] ([id number]) [address] [place] [address] 48188 Potassium [Moles/Vol] 3.5 mmol/L Normal 3.5-5.0 [facility] Comment on above: Performed By: #### B MP #### [facility] ([id number]) [address] [place] [address] 39357 Sodium [Moles/Vol] 134 mmol/L Normal 134-146 [facility] Comment on above: Performed By: #### B MP #### [facility] ([id number]) [address] [place] [address] 62001 Urea nitrogen [Mass/Vol] 10 mg/dL Normal 5-23 [facility] Comment on above: Performed By: #### B MP #### [facility] ([id number]) [address] [place] [address] 44471 HCG ( test) Ql (U)o n 07-18-2023 Beta HCG ( test) Ql (U) Positive Abnormal NEG [facility] Comment on above: Performed By: #### 2 106-3 #### [facility] ([id number]) [address] [place] [address] 09232 SARS/FLU A+B/RSV by NAAT/Mol ecularon 07-18-2023 SARS/FLU [...] operators who are performing tests using either [employer] or Life[employer] systems and is limited to laboratories that [...] repeat. Fact Sheet for Healthcare Providers: https://www.fda.gov/ media/193789/downloa d Fact Sheet for Patients: https://www.fda.gov/ media/192626/downloa d Normal [facility] Comment on above: Performed By: #### C OVFLR #### [facility] ([id number]) [address] [place] [address], [place] [address] URINE CULTUREon 07-18-2023 Bacteria identified Cx Nom (U) CULTURE RESULTS 50-100,000 ORGANISMS/ML NORMAL UROGENITAL ADELE Normal [facility] Comment on above: Performed By: #### 6 30-4 #### [facility] ([id number]) [address], [address] [place] [address] URN MACROSCOPIC NURon 2023 BILIRUBIN MARLYS Negative Normal NEG [facility] Comment on above: Performed By: #### N UM #### [facility] ([id number]) [address] [place] [address] 88032 BLOOD/HGB MARLYS Negative Normal NEG [facility] Comment on above: Performed By: #### N UM #### [facility] ([id number]) [address] [place] [address] 39028 GLUCOSE MARLYS Negative Normal NEG [facility] Comment on above: Performed By: #### N UM #### [facility] ([id number]) [address] [place] [address] 23653 KETONES MARLYS 40 mg/dL Abnormal NEG [facility] Comment on above: Performed By: #### N UM #### [facility] ([id number]) [address] [place] [address] 87916 LEUKOCYTE ESTERASE MARLYS Small Abnormal NEG [facility] Comment on above: Performed By: #### N UM #### [facility] ([id number]) [address] [place] [address] 97960 NITRITE MARLYS Negative Normal NEG [facility] Comment on above: Performed By: #### N UM #### [facility] ([id number]) [address] [place] [address] 59488 PH MARLYS 7.5 Normal 5.0-8.5 [facility] Comment on above: Performed By: #### N UM #### [facility] ([id number]) [address] [place] [address] 19173 PROTEIN MARLYS 30 mg/dL Abnormal NEG [facility] Comment on above: Performed By: #### N UM #### [facility] ([id number]) [address] [facility] [facility], [place] [address] SPECIFIC GRAVITY MARLYS 1.020 Normal 1.003-1.035 [facility] Comment on above: Performed By: #### N UM #### [facility] ([id number]) [address] [facility], [place] [address] UROBILINOGEN MARLYS 2.0 eu/dL High <1.1 [facility] Comment on above: Performed By: #### N UM #### [facility] ([id number]) [address] [facility] [facility], [place] [address] COVID Quick Testingon 2020 Result Negative [employer] Other Quick Strepon 05-08-2021 S. pyogenes Org specific cx Ql (Throat) Negative [employer] Other Quick Strep [employer] Other XR chest 2V*on 05-08-2021 XR chest 2V* [facility] Main [place] [address] [place] [address] XRay Report Signed Patient: Shayla Martinez MR#: [id number] : 2005 Acct:[id number] Age/Sex: 15 / F ADM Date: 05/08/21 Loc: [facility] Room: Type: [facility] Attending Dr: Sravani Dumont APRN, NP-C [...] Radha Joyce M.D.05/08/2021 2:43 PM Dictation Location: [facility]- Transcribed By: [facility] 05/08/21 1443 Dictated By: Radha Joyce MD 05/08/21 1442 Signed By: 05/08/21 1443 Normal [facility] XR chest 2V* [facility] [employer] Other XR chest 2V* [facility] Main [facility] [employer] Other XR chest 2V* [address] [place] [address] [employer] Other XR chest 2V* [place] [address] [facility] [employer] Other XR chest 2V* XRay Report [employer] Other XR chest 2V* Signed [employer] Other XR chest 2V* Patient: Shayla Martinez MR#: [id number] [employer] Other XR chest 2V* [address] [employer] Other XR chest 2V* : 2005 Acct:[id number] [employer] Other XR chest 2V* Age/Sex: 15 / F ADM Date: 05/08/21 [employer] Other XR chest 2V* Loc: [facility] Room: Type: [facility] [employer] Other XR chest 2V* Attending Dr: Sravani Dumont APRN, FOOD SERVER-C [employer] Other XR chest 2V* Ordering Provider: Sravani Dumont APRN, SPIRAL TUBE WINDER HELPER [employer] Other XR chest 2V* Date of Service: 05/08/21 [employer] Other XR chest 2V* XR/XR chest 2V*: Cough;Wheezing [employer] Other XR chest 2V* Copies to: Sravani Dumont APRN, MAXIMILIANO [employer] Other XR chest 2V* PA AND LATERAL CHEST: [employer] Other XR chest 2V* CLINICAL HISTORY: Crackling and diminished lung sounds on exam today. Body aches, fever and [employer] Other XR chest 2V* productive cough. [employer] Other XR chest 2V* COMPARISON: None [employer] Other XR chest 2V* There is no focal parenchymal consolidation, effusion or pneumothorax. The cardiac, hilar and [employer] Other XR chest 2V* mediastinal silhouettes are within normal limits. There is no vascular congestion. The [employer] Other XR chest 2V* visualized bony thorax is intact. There is subtle reverse S-shaped scoliotic curvature. [employer] Other XR chest 2V* XR/XR chest 2V* [employer] Other XR chest 2V* IMPRESSION: [employer] Other XR chest 2V* NO ACUTE CARDIOPULMONARY ABNORMALITY. [employer] Other XR chest 2V* Impression dictated by: Radha Joyce M.D.05/08/2021 2:43 PM [employer] Other XR chest 2V* Dictation Location: [place] [address] [employer] Other XR chest 2V* Transcribed By: VIC 05/08/21 1443 [employer] Other XR chest 2V* Dictated By: Radha Joyce MD 05/08/21 1442 [employer] Other XR chest 2V* Signed By: [employer] Other XR chest 2V* 05/08/21 1449 [employer] [facility] [employer] Other C Throaton 09-17-2019 C Throat Ordered by Discern. Normal throat adele isolated No pathogens isolated [facility] Comment on above: Performed By: #### 6 [id number] ####[facility] (DEFAULT)[address] [place] [address] Coding Summaryon 09-16-2019 Coding Summary CODING DATE: 09/16/2019 [facility] STATUS: PAYOR: Medicaid HMO ADMIT DX: [...] Dee Bacon Date Saved: 09/16/2019 11:41 am [facility] Coding Summary CODING DATE: 09/16/2019 [facility] STATUS: Home PAYOR: Medicaid HMO ADMIT [...] Dee Bacon Date Saved: 09/16/2019 11:39 am [facility] Consent Formson 09-16-2019 Consent Forms [id number] [facility] ED Clinical Summaryon 2019 ED Clinical Summary [facility] - Emergency Department [address] [place] [address] ED Clinical Summary PERSON INFORMATION Name: SHAYLA MARTINEZ Age: 13 Years Sex: FEMALE : 2005 MRN: Acct#: Visit Reason: EENT and Dental; Foreign body in throat; FOREIGN OBJECT IN THROAT Arrival: 09/15/2019 01:16:53 Discharge: 09/15/2019 03:23:00 LOS: 000 02:07 Check In: 09/15/2019 01:16:53 Checkout:09/15/2019 03:23:00 Address: [address] [place], [place] [id number] PCP: PROVIDER INFORMATION Provider Role Assigned Unassigned [...] here with her mom, she is from [place], private vehicle arrival. Review of systems otherwise [...] no foreign body seen, no RPA, PPA, AMMUNITION AND EXPLOSIVES HANDLER, no anterior posterior or supraclavicular nodes, no [...] . Impression and Plan Diagnosis Pharyngeal irritation (UHF03-NS J39.2, Discharge, Medical) Plan Condition: Improved. Disposition: Discharged: time 09/15/2019 03:13:00. Patient was given the following educational materials: Pharyngitis, Dfld-zg-Zjgt, Pharyngitis, Tdgw-ew-Ujzi. Follow up with: JORGE HER Within 3 [...] Location: Home PATIENT EDUCATION INFORMATION Instructions: Pharyngitis, Aeot-df-Axti Follow-Up: With: Address: When: JORGE HER [address] [place], [place] [id number] Business (1) Within 3 to 5 days Comments: home lozenges as needed, expect this to resolve call Ms Her for a recheck if this continues for three days you are welcomed to return anytime joy ignacio, er physician, jumana hicks DIAGNOSIS: Pharyngeal irritation Patient Understands: Yes - Patient/family/careg iver verbalizes understanding of instructions given Comment: [facility] ED Note - Physicianon 2019 ED [...] here with her mom, she is from [place], private vehicle arrival. Review of systems otherwise [...] no foreign body seen, no RPA, PPA, AMMUNITION AND EXPLOSIVES HANDLER, no anterior posterior or supraclavicular nodes, no [...] . Impression and Plan Diagnosis Pharyngeal irritation (QZB78-BP J39.2, Discharge, Medical) Plan Condition: Improved. Disposition: Discharged: time 09/15/2019 03:13:00. Patient was given the following educational materials: Pharyngitis, Ddjw-az-Vfrw, Pharyngitis, Oefc-he-Vcgs. Follow up with: JORGE HER Within 3 [...] on: 09/15/2019 03:13 EDT] Cristofer Ignacio DO [facility] ED Patient Education Noteon 09-15-2019 ED Patient Education Note Education Materials Infectious Disease Pharyngitis Pharyngitis is a sore throat (pharynx). This is when there is redness, pain, and swelling in your throat. Most of the time, this condition gets better on its own. In some cases, you may need medicine. Follow these instructions at home: ? Take pyph-asz-lixyhql and prescription medicines only as told by [...] 11/18/2008 Document Revised: 07/08/2017 Document Reviewed: 07/08/2017 [employer] Patient Education ? 2019 [employer]. Normal [facility] ED Patient Summaryon 020 ED Patient Summary [facility] - Emergency Department [address] [place] [address] PATIENT DISCHARGE INSTRUCTIONS Patient Information Name: SHAYLA MARTINEZ Age: 13 Years Date of : 2005 Reason For Visit: EENT and Dental; Foreign body in throat; FOREIGN OBJECT IN THROAT Arrival Time: 09/15/2019 01:16:53 Primary Care Physician: Attending Physician: Cristofer Ignacio DO Comment: Visit Diagnosis: Diagnoses This Visit EENT and Dental ([id number]) Foreign body in throat ([id number]) Pharyngeal irritation (J39.2) Prescription Information: If you have been given a prescription for narcotics, seek immediate medical attention if you have any difficulty breathing or any sudden status changes such as confusion and sleepiness. If you or anyone you know is experiencing suicidal thoughts, mental health, alcohol and/or drug addiction problems; contact the [facility] 06/01 Crisis Hotline -Text 4HOPE to 331721. If you received any narcotics, sedation, or [...] legal documents With: Address: When: JORGE HER [address] [place], [place] [address] Business (1) Within 3 to 5 days Comments: home lozenges as needed, expect this to resolve call Ms Her for a recheck if this continues for three days you are welcomed to return anytime joy ignacio, physician, jumana hicks Medication Information: The exam and treatment you received today in the [facility] Emergency Department were for an urgent problem and are not intended as complete care. It is important for you to follow up with a doctor, nurse practitioner, or physician?s assistant womens volleyball coach for ongoing care. If your symptoms become [...] so we can reach you if necessary. [facility] Emergency Department has provided you with a complete list of medications post discharge. Please inform your marine tower operator/provider of your visit and for further [...] Follow these instructions at home: ? Take dyvk-wdv-abblsfo and prescription medicines only as told by [...] 11/18/2008 Document Revised: 07/08/2017 Document Reviewed: 07/08/2017 [employer] Patient Education ? 2019 [employer] Viruses or Bacteria What?s got you [...] for Disease Control and Prevention February 2014 [facility] Influenza A&B Rapidon 2019 Influenza A Negative Normal Negative [facility] Hosp ital Comment on above: Performed By: #### 1 [id number] #### [facility] (DEFAULT) [address] [place] [address] Influenza B Negative Normal Negative [facility] ital Comment on above: Performed By: #### 1 [id number] #### [facility] (DEFAULT) [address] [place] [address] Internal QC OK? Pass Normal [facility] Comment on above: Performed By: #### 1 [id number] #### [facility] (DEFAULT) [address] [place] [address] Strep Aon 09-15-2019 Strep procedure control Pass Normal [facility] l Comment on above: Performed By: #### 6 [id number], [id number] #### [facility] (DEFAULT) [address] [place] [address] Streptococcus A Negative Normal Negative [facility] Comment on above: Performed By: #### 6 [id number], [id number] #### [facility] (DEFAULT) [address] [place] [address] XR Neck Soft Tissueon 2019 XR Neck [...] L 09/15/19 2:28 am Technologist: PATRICIA Johnson [facility] Vital Signs Date Time Vital Sign Value Performing Clinician Facility 07-25-2023 10:08-0500 Body weight 73.85 kg [facility] Nurse [facility] 04-16-2022 14:30-0400 Body weight 79.74 kg Sravani Dumont Other [employer] Other 04-16-2022 14:30-0400 Diastolic blood pressure 74 mm[Hg] Sravani Dumont Other [employer] Other 04-16-2022 14:30-0400 SaO2% (BldA) [Mass fraction] 96 % Sravani Dumont Other [employer] Other 04-16-2022 14:30-0400 Systolic blood pressure 116 mm[Hg] Sravani Julia Other [employer] Other 03-08-2021 14:00-0400 Body height 166.37 cm Sravani Julia Other [employer] Other 03-08-2021 14:00-0400 Body mass index (BMI) [Ratio] 29.33 kg/m2 Sravani Julia Other [employer] Other 03-08-2021 14:00-0400 Body weight 81.19 kg Sravani Julia Other [employer] Other 03-08-2021 14:00-0400 Diastolic blood pressure 66 mm[Hg] Sravani Julia Other [employer] Other 03-08-2021 14:00-0400 Respiratory rate 18 /min Sravani Julia Other [employer] Other 03-08-2021 14:00-0400 SaO2% (BldA) [Mass fraction] 100 % Sravani Julia Other [employer] Other 03-08-2021 14:00-0400 Systolic blood pressure 120 mm[Hg] Sravani Julia Other [employer] Other Encounters Encounter Date Encounter Type Care Provider Facility Start: 02-09-2024 End: 02-09-2024 ambulatory WILLI ЕЛЕНА Not Available Start: 01-26-2024 End: 01-26-2024 ambulatory WILLI ЕЛЕНА [...] 07-18-2023 End: 07-18-2023 Emergency department patient visit [facility] Start: 11-28-2022 End: 11-28-2022 ambulatory Sravani Dumont Other [employer] Other Start: 11-28-2022 Telephone encounter Sravani sims [facility] Start: 04-16-2022 End: 04-16-2022 ambulatory Sravani Dumont Other [employer] Other Start: 04-16-2022 Encounter for routin e child health examination without abnormal findings Sravani Dumont [facility] Start: 04-16-2022 Periodic preventive med est patient 12-17yrs Sravani Dumont [facility] Start: 05-08-2021 End: 05-08-2021 ambulatory Sravani Dumont Other [employer] Other Start: 05-08-2021 Office outpatient vi sit 15 minutes Sravani Dumont [facility] Start: 05-08-2021 Telephone encounter Sravani Lon her [facility] Start: 03-08-2021 Office outpatient vi [...] PM EDT Routine [facility] [address] [place] [address] Willi Christiansen, DO [address] [place] [address] [facility] Start: 07-25-2023 End: 07-25-2024 ABO/Rh ABO/Rh Lab Routine Missed menses Expected: 07/25/2023 (Approximate), Expires: 07/25/2024 [facility] Comment on above: Expected: 07/25/2023 (Approximate), Expires: 07/25/2024 Start: 07-25-2023 End: 07-25-2024 Blood type and Indirect antibody screen panel - Blood Type and screen Lab Routine Missed menses Expected: 07/25/2023 (Approximate), Expires: 07/25/2024 [facility] Work Phone: Comment on above: Expected: 07/25/2023 (Approximate), Expires: 07/25/2024 Start: 07-25-2023 End: 07-25-2024 US Pelvis transvaginal US OB transvaginal Imaging Routine Missed menses Expected: 07/25/2023 (Approximate), Expires: 07/25/2024 [facility] Comment on above: Expected: 07/25/2023 (Approximate), Expires: 07/25/2024 Bacteria identified in Urine by Culture Urine culture Microbiology Routine Missed menses Ordered: 07/25/2023 [facility] Comment on above: Ordered: 07/25/2023 CBC W Auto Different ial panel - Blood CBC and differential Lab Routine Missed menses Ordered: 07/25/2023 [facility] Comment on above: Ordered: 07/25/2023 Hemoglobin A1c measurement Hemoglobin A1c Lab Routine Missed menses Ordered: 07/25/2023 [facility] Comment on above: Ordered: 07/25/2023 Hepatitis B virus surface Ag [Presence] in Serum or Plasma by Immunoassay Hepatitis B surface antigen Lab Routine Missed menses Ordered: 07/25/2023 [facility] Comment on above: Ordered: 07/25/2023 Hepatitis C virus Ab [Presence] in Serum or Plasma by Immunoassay Hepatitis C antibody Lab Routine Missed menses Ordered: 07/25/2023 [facility] Comment on above: Ordered: 07/25/2023 HIV-1/HIV-2 antigen/antibody combination immunoassay HIV-1 and HIV-2 antibodies Lab Routine Missed menses Ordered: 07/25/2023 [facility] Comment on above: Ordered: 07/25/2023 Reagin Ab [Presence] in Serum by RPR RPR Lab Routine Missed menses Ordered: 07/25/2023 [facility] Comment on above: Ordered: 07/25/2023 Rubella antibody, IgG Rubella an tibody, IgG Lab Routine Missed menses Ordered: 07/25/2023 [facility] Comment on above: Ordered: 07/25/2023 Payers Date Payer Category Payer Medicaid [place] [employer] [id number] 2023-Present [address] [place] [address] [id number] 2022 Medicaid [id number] 2021 [facility] [id number] 2016 Unknown [id number] 2004 Unknown [id number] 286 2004 Unknown [id number] [id number] 259 2004 Unknown [id number] 2.16.840.1.572685.3.579.2.1 259 2004 Unknown [id number] 2.16.840.1.600707.3.579.2.1 259 2004 Unknown [id number] 2.16.840.1.865315.3.579.2.1 259 2004 Unknown [id number] 2.16.840.1.087995.3.579.2.1 259 2004 Unknown [id number] 2.16.840.1.774638.3.579.2.1 259 2004 Unknown [id number] 2.16.840.1.751834.3.579.2.1 259 2004 Unknown [id number] 2.16.840.1.531180.3.579.2.1 259 Social History Date Type Detail Facility Sex Assigned At [employer] Other Tobacco smoking stat [facility] [facility] Tobacco smoking consumption unknown [facility] Start: 06-03-2023 [facility] Start: 2004 Sex Assigned At Female [facility] Start: 07-07-2023 Gender identity Identifies as female gender (finding) [facility] Start: 07-07-2023 Sexual orientation Heterosexual (finding) [facility] History of Present illness Narrative [...] or undercooked meat, and stay away from [facility] center. Patient has also been advised to not [...] Jacquelyn Steel MA documented in this encounter [facility] Evaluation note 04-16-2022 Note Date & Type [...] understanding and agrees to plan of care. [facility] Other Evaluation note 05-08-2021 Note Date & [...] stool studies. Apr, Nausea (ICD-10 - R11.0) [facility] Other Evaluation note 03-08-2021 Note Date & [...] verbalized understanding and agreement with treatment plan. [facility] Other Evaluation note Note Date & Type Note Facility Evaluation note No Information [facility] Other Evaluation note Note Date & Type Note Facility Evaluation note Diagnosis Missed menses documented in this encounter [facility] History general Narrative - Reported Note Date & Type Note Facility History general Narrative - Reported Type Medical History [facility] Surgical History tonsilectomy and adenoidectomy [facility] Other Summary Purpose Family History No Family [...] DATE CREATED AUTHOR AUTHOR'S ORGANIZ ATION 08/03/2021 [facility] DATE CREATED AUTHOR AUTHOR'S ORGANIZ ATION 07/20/2023 [facility] DATE CREATED AUTHOR AUTHOR'S ORGANIZ ATION 02/10/2024 [facility] EPIC REASON FOR VISIT (unrecogniz [...] BE BASED ON THE PRIMARY CLINICAL RECORDS. [employer] provides no warranty or guarantee of the accuracy or completeness of information in this document.
[2024-02-12 02:25] LABS: Bilirubin Urine NEGATIVE (NEGATIVE); Blood Urine NEGATIVE (NEGATIVE); Clarity Urine CLEAR (CLEAR); Color Urine YELLOW (YELLOW); Glucose Urine UA NEGATIVE (NEGATIVE); Ketones Urine TRACE mg/dL (NEGATIVE); Leukocyte Esterase Urine TRACE (NEGATIVE); Nitrite Urine NEGATIVE (NEGATIVE); Protein Urine NEGATIVE (NEG/TRACE); Specific Gravity Urine >=1.030 (1.005-1.025); Urobilinogen Urine 0.2 EU/dL (0.2-1.0); pH Urine 6.5 (5.0-9.0)
[2024-02-12 02:26] LABS: Urine Microscopic Indicated YES
[2024-02-12 02:29] LABS: Amnisure POSITIVE (NEGATIVE); Internal Control Within Normal Limits
[2024-02-12 02:33] LABS: Bacteria Urine SMALL #/HPF (NONE SEEN); Calcium Oxalate Crystals Urine FEW; Cast Seen? NONE SEEN #/LPF (NONE SEEN); Crystals Seen? Seen #/HPF (None Seen); Mucus Urine NONE SEEN (NONE SEEN); RBC Urine 0-2 #/HPF (0-2); Squamous Epithelial Cell Urine FEW #/LPF (NONE/RARE); Urine Culture Indicated YES
[2024-02-12 03:26] LABS: Amphetamine Screen Urine NEGATIVE (NEGATIVE); Barbiturates Screen Urine NEGATIVE (NEGATIVE); Benzodiazepines Screen Urine NEGATIVE (NEGATIVE); Buprenorphine Screen Urine NEGATIVE (NEGATIVE); Cannabinoid Screen Urine POSITIVE (NEGATIVE); Cocaine Screen Urine NEGATIVE (NEGATIVE); Methadone Screen Urine NEGATIVE (NEGATIVE); Methamphetamines Screen Urine NEGATIVE (NEGATIVE); Opiate Screen Urine NEGATIVE (NEGATIVE); Oxycodone Screen Urine NEGATIVE (NEGATIVE); Phencyclidine Screen Urine NEGATIVE (NEGATIVE); Tricyclic Antidepressant Urine NEGATIVE (NEGATIVE)
[2024-02-12 03:29] LABS: Hematocrit 31.3 % (36.0-48.0); Hemoglobin 10.1 g/dL (12.0-16.0); Mean Corpuscular HGB Conc 32.3 g/dL (29.9-35.2); Mean Corpuscular Hemoglobin 27.9 pg (26.7-34.0); Mean Corpuscular Volume 86.5 fL (81.0-99.0); Platelet Count 305 10^3/uL (150-450); Red Blood Count 3.62 10^6/uL (4.20-5.40); Red Cell Distribution Width 15.5 % (11.0-15.0); White Blood Count 14.1 10^3/uL (4.0-11.0)
[2024-02-12] MEDS: VANCOMYCIN HCL 1,000 MG in 0.9 % SODIUM CHLORIDE 250 ML 250 MG IV ×2 (03:45→15:19)
[2024-02-12] MEDS: 0.9 % SODIUM CHLORIDE 1,000 ML 125 ML IV (03:46)
[2024-02-12] MEDS: OXYTOCIN/0.9 % SODIUM CHLORIDE 10 UNITS/500 ML PLAST..BAG 6 UNIT IV (06:16)
[2024-02-12] MEDS: NALBUPHINE HCL 10 MG/ML AMPULE IV (06:51)
[2024-02-12] MEDS: 0.9 % SODIUM CHLORIDE 1,000 ML 1000 ML IV (09:04)
[2024-02-12] MEDS: ONDANSETRON PF 4 MG/2 ML VIAL IV (10:23)
[2024-02-12] MEDS: ROPIVACAINE HCL/PF 400 MG/200 ML PREMIX 6 MG EPIDURAL (10:26)
[2024-02-12] MEDS: OXYTOCIN/0.9 % SODIUM CHLORIDE 20 UNITS/1,000 ML PLAST..BAG 125 UNIT IV (16:26)
--- NOTE | 2024-02-12 16:38 | PM.OBPRCVD ---
Procedure Intrapartal events: None Induction method: none Delivery augmentation: pitocin Delivery monitor: external FHT and external uterine Route of delivery: Episiotomy Description: none L&D Laceration Description: periurethral - 1st degree Delivery repair: Vicryl Estimated blood loss (mL): 250 Anesthesia type: Epidural Disposition: PACU Infant Delivery date: 02/12/24 Gender: female presentation: vertex Placental delivery description: Spontaneous cord description: 3 Vessels
[2024-02-12] MEDS: BENZOCAINE/MENTHOL 85 GRAM SPRAY BOTTLE 1 APPLIC TOPICAL (19:36)
[2024-02-12] MEDS: GLYCERIN/WITCH HAZEL PADS 1 PAD TOPICAL (19:36)
[2024-02-12] MEDS: IBUPROFEN 600 MG TABLET PO (19:36)
[2024-02-12] MEDS: SENNOSIDES 8.6 MG TABLET 17.2 MG PO (22:38)
[2024-02-12] MEDS: ACETAMINOPHEN 325 MG TABLET 650 MG PO (22:39)
[2024-02-13] MEDS: IBUPROFEN 600 MG TABLET PO ×4 (01:28→23:38)
[2024-02-13 01:43] VITALS: BP 136/62; TEMP 36.9
[2024-02-13] MEDS: CALCIUM CARBONATE 500 MG (200MG ELEMENTAL) TAB CHEW PO (05:35)
[2024-02-13 06:05] LABS: Hematocrit 30.7 % (36.0-48.0); Mean Corpuscular HGB Conc 32.6 g/dL (29.9-35.2); Mean Corpuscular Hemoglobin 27.9 pg (26.7-34.0); Mean Corpuscular Volume 85.8 fL (81.0-99.0); Mean Platelet Volume 10.9 fL (9.5-13.5); Platelet Count 282 10^3/uL (150-450); Red Blood Count 3.58 10^6/uL (4.20-5.40); Red Cell Distribution Width 15.7 % (11.0-15.0); White Blood Count 17.2 10^3/uL (4.0-11.0)
[2024-02-13 06:19] LABS: Atypical Lymphocytes Abs Man 1.72; Band Neutrophils Absolute 0.2 10^3/uL (0.0-0.3); Basophils Abs Manual 0.17 10^3/uL (0.00-0.10); Eosinophils Absolute Manual 0.17 10^3/uL (0.00-0.70); Lymphocytes Absolute Manual 2.06 10^3/uL (1.20-3.80); Monocytes Absolute Manual 1.37 10^3/uL (0.30-0.80); Promyelocytes Absolute Manual 0.17; Segmented Neut Absolute Manual 11.35 10^3/uL (1.4-6.5)
--- NOTE | 2024-02-13 07:55 | PM.OBPN ---
OB - PN: Subj Subjective Patient comments: no complaints and pain well controlled [place] status: doing well Exam Constitutional Vital Signs, click to edit/add: Last Vital Signs Temp 98.5 F 02/13/24 01:43 Pulse 76 02/12/24 18:25 Resp 20 02/13/24 01:39 BP 136/62 02/13/24 01:43 O2 Del Method Room Air 02/13/24 01:43 Documenting provider has reviewed patient's vital signs: yes Common normals: no apparent distress Respiratory Common normals: normal respiratory effort and clear to auscultation bilaterally Cardio Common normals: regular rate and regular rhythm GI Common normals: Normal to inspection, nondistended, normoactive bowel sounds present Extremity Common normals: no calf tenderness Results Labs Labs: Short CBC 02/13/24 Range/Units 05:51 WBC 17.2 H (4.0-11.0) 10^3/uL Hgb 10.0 L (12.0-16.0) g/dL Hct 30.7 L (36.0-48.0) % Plt Count 282 (150-450) 10^3/uL Urinary Catheter Management Urinary Catheter Management Straight: Cath placed during this visit: yes Urethral indwelling: No Insertion date: 02/12/24 Insertion time: 16:00 OB - PN: A/P Plan - Vaginal Delivery day: 1 Plan: routine care Time Spent with Patient Time: Total time spent is greater than 50% in coordination of care (as documented) at patient's floor/unit and/or counseling patient: Total time spent with greater than 50% in coordination of care (as documented) at patient's floor/unit and/or counseling patient: less than 15 minutes
[2024-02-13 08:10] VITALS: BP 104/56; PULSE 72; TEMP 36.2
[2024-02-13] MEDS: DOCUSATE SODIUM 100 MG CAPSULE PO ×2 (08:31→20:44)
--- NOTE | 2024-02-13 10:22 | SWNOTE1 ---
Pt is positive for Marijuana on admission. SW spoke with pt and father of baby in room. Pt ate gummies, she voiced it was only 2-3 times and the last time was about a month ago. She stated she was sick throughout her on and off. She had lost 20 pounds and she attempted to take Zofran but could not keep that down. She stated she could not even take pre-maría vitamins. Pt does not have medical marijuana card and she does not plan on using once she is home. This is first baby. Father of baby is in room, he lives in [place] and works shiftman and has picked up more hours recently. Pt is going to stay at her mother and father's home. There will also be her younger siblings in the home, 8,13,18. She voiced that way she is not home alone while father of baby is working. [place] are about 10 minutes away from eachother. Pt does plan on staying at father of baby's home as well at times depending on work schedule. They do have everything they need at home for baby. Pt is on WIC. SW and pt spoke about post Depression. Pt does have good support system. At this time no further concerns. SW advised pt and father of baby that SW is mandated reported and SW has to call [facility] CPS due to the marijuana. They voiced understanding. Referral made to [facility] CPS. HIPAA form filled out and sent to [facility].
[2024-02-13 16:57] VITALS: BP 124/73; PULSE 83; TEMP 37.2
[2024-02-13] MEDS: ACETAMINOPHEN 325 MG TABLET 650 MG PO (20:44)
[2024-02-13 20:47] VITALS: TEMP 36.4
[2024-02-13 20:48] VITALS: BP 130/70; PULSE 77
[2024-02-13 23:37] VITALS: BP 136/77; PULSE 78; TEMP 36.8
[2024-02-14] MEDS: IBUPROFEN 600 MG TABLET PO (08:46)
[2024-02-14 10:19] VITALS: BP 125/66; PULSE 72
[2024-02-14 10:20] VITALS: TEMP 36.5
[2024-02-14] MEDS: DOCUSATE SODIUM 100 MG CAPSULE PO (10:20)
--- NOTE | 2024-02-14 11:55 | P.DS_ITS ---
DS: Providers Provider Date of admission: 02/12/24 03:03 Primary care physician: Non-Staff Physician, Admitting clinician: Nelson Christiansen Consults: 02/12/24 Consult to Anesthesiology Routine Consulting Provider: Timothy Leal Reason for consultation: Epidural 02/13/24 Consult to Immunology Teacher Routine Reason for consult:: Other Other reason:: THC positive Discharging clinician: Brenda Cook DS: Diagnosis Discharge Diagnosis (1) Normal vaginal delivery: Assessment and plan: CLINICAL EXAM NORMAL, DISCHARGE TEACHING DONE, STATED UNDERSTANDING, FOLLOW UP INSTRUCTIONS GIVEN, NO SCRIPTS NEEDED, CALL FOR PROBLEM OR CONCERN Plan DISCHARGE HOME, FOLLOW UP POST EXAM WITH DR. CHRISTIANSEN IN SIX WEEKS, CALL FOR APPOINTMENT OB - DS: Summary Hospital Course Hospital Course: UNCOMPLICATED Time spent discussing smoking cessation with patient: 3 to 10 minutes Peripartum Data - Vaginal Delivery Laceration description: periurethral - 1st degree Procedures: REPAIRED WITH VICRYL Complications complications: none Infant Delivery method: spontaneous vaginal delivery Gender: female Discharge plan: home Status at Discharge Cognitive/behavioral status at discharge: WNL Functional status at discharge: independent ambulation Time Spent with Patient Time attestation: Total time spent providing and/or coordinating discharge services: Time spent: less than 30 minutes Exam Narrative Exam Narrative: VOICING NO COMPLAINTS Constitutional Vital Signs, click to edit/add: Last Vital Signs Temp 97.7 F 02/14/24 10:20 Pulse 72 02/14/24 10:19 Resp 14 02/14/24 10:20 BP 125/66 02/14/24 10:19 O2 Del Method Room Air 02/14/24 10:20 Documenting provider has reviewed patient's vital signs: yes Common normals: no apparent distress, oriented x3, no limitations, healthy appearing, alert and well nourished [facility] Common normals: normocephalic and head/scalp atraumatic Eye Pupil: PERRL and accommodation reflex normal Neck & C-Spine Common normals: full ROM and supple Respiratory Common normals: normal respiratory effort Cardio Common normals: regular rate and regular rhythm GI Common normals: Normal to inspection, nondistended, normoactive bowel sounds present, soft to palpation and non-tender Common normals: no CVA tenderness Back & Pelvis Common normals: no thoracic nor lumbar tenderness Extremity Common normals: normal to inspection, full ROM and no calf tenderness Neuro Common normals: CN's II-XII intact bilaterally, moves all extremities, no focal motor deficits and no sensory deficits noted Psych Common normals: mental status grossly normal, thought process normal, cooperative, affect normal and speech normal Discharge Plan Discharge Disposition: Home, Self-Care Condition: Good Assessment: normal clinical exam, vss, ready for discharge Health Concerns: none Plan of Treatment: discharge home Discharge Medications: Continued ondansetron 4 mg tablet,disintegrating 4 mg PO Q6H PRN (Reason: nausea and vomiting) 5 Days Qty: 20 0RF Activity: increase activity as tolerated Activity Detail: NO SEX 4 TO 6 WEEKS, LIMIT DRIVING 4 WEEKS, GENERAL COVID AND RSV PRECAUTIONS, 10 TO 12 GLASSES OF WATER A DAY, SPORTS BRA 06/01 IF DECIDES TO STOP BREAST FEEDING, WALKING ONLY EXERCISES FOR 6 WEEKS, MAY USE SITZ BATH, NO BATH FOR 4 WEEKS, MAY SHOWER, ONLY LIFT BABY, CALL FOR PROBLEM OR CONCERN Diet: regular diet Print Language: Amharic Patient Instructions: Vaginal Delivery (DC) Activity Restrictions/Additional Instructions: ABOVE Forms: Portal Instructions Follow Up Appointments: MAKE A POST APOINTMENT FOR 6 WEEKS FROM NOW, PELVIC REST UNTIL MD SAWYER'S INTERCOURSE Discharge location: HOME
[2024-02-14] MEDS: ACETAMINOPHEN 325 MG TABLET 650 MG PO (14:37)
[2024-02-14] MEDS: BENZOCAINE/MENTHOL 85 GRAM SPRAY BOTTLE 1 APPLIC TOPICAL (14:37)
[2024-02-14] MEDS: GLYCERIN/WITCH HAZEL PADS 1 PAD TOPICAL (14:37)
[2024-02-14] MEDS: MEASLES,MUMPS,RUBELLA VACC/PF 0.5 ML VIAL SQ (14:38)
[2024-02-14] MEDS: ADACEL DIPH,PERTUSS(ACELL),TET VAC/PF 0.5 ML ADULT SYRINGE IM (14:39)
== END 2024-02-14 16:00 | disposition home or self-care (01) | DRG 560 ==
PROVIDERS: Admitting Provider Obstetrics & Gynecology; Visit Provider Obstetrics & Gynecology
DX: O99.824 Streptococcus B carrier state complicating childbirth (principal); O99.324 Drug use complicating childbirth; F12.90 Cannabis use, unspecified, uncomplicated; O70.0 First degree perineal laceration during delivery; Z3A.38 38 weeks gestation of pregnancy; Z37.0 Single live birth
CPT/HCPCS: 36415; 51701; 59025; 59050; 59410; 80307; 81001; 84112; 85007; 85027; 86850; 86900; 86901; 87086; 87150; 90471; 90472; 90707; 90715; 96365; 96366; 96367; 96368; 96375; J2300; J2405; J2795; J3370

== ENCOUNTER 2024-06-24 15:50 | Outpatient (OUT) | payer MEDICAID, SELFPAY ==
[2024-06-24 16:39] LABS: BOX Test Sent Out UNITY; Basophils Percent Auto 0.1 % (0.2-2.0); Eosinophils Percent Auto 0.2 % (0.9-7.0); Hematocrit 34.1 % (36.0-48.0); Hemoglobin 11.1 g/dL (12.0-16.0); Immature Granulocytes Abs Auto 0.02 10^3/uL (0.00-0.03); Immature Granulocytes Pct Auto 0.2 % (0.0-0.5); Lymphocytes Absolute Auto 2.1 10^3/uL (1.2-3.8); Lymphocytes Percent Auto 22.1 % (20.5-60.0); Mean Corpuscular HGB Conc 32.6 g/dL (29.9-35.2); Mean Corpuscular Hemoglobin 26.9 pg (26.7-34.0); Mean Corpuscular Volume 82.8 fL (81.0-99.0); Mean Platelet Volume 10.1 fL (9.5-13.5); Monocytes Absolute Auto 0.4 10^3/uL (0.3-0.8); Monocytes Percent Auto 3.9 % (1.7-12.0); Neutrophils Absolute Auto 6.9 10^3/uL (1.4-6.5); Neutrophils Percent Auto 73.5 % (43.0-75.0); Platelet Count 371 10^3/uL (150-450); Red Blood Count 4.12 10^6/uL (4.20-5.40); Red Cell Distribution Width 13.7 % (11.0-15.0); White Blood Count 9.4 10^3/uL (4.0-11.0)
[2024-06-24 16:40] LABS: BOX Test Reference Lab UNITY
[2024-06-24 16:49] LABS: Amphetamine Screen Urine NEGATIVE (NEGATIVE); Barbiturates Screen Urine NEGATIVE (NEGATIVE); Benzodiazepines Screen Urine NEGATIVE (NEGATIVE); Buprenorphine Screen Urine NEGATIVE (NEGATIVE); Cannabinoid Screen Urine POSITIVE (NEGATIVE); Cocaine Screen Urine NEGATIVE (NEGATIVE); Methadone Screen Urine NEGATIVE (NEGATIVE); Methamphetamines Screen Urine NEGATIVE (NEGATIVE); Opiate Screen Urine NEGATIVE (NEGATIVE); Oxycodone Screen Urine NEGATIVE (NEGATIVE); Phencyclidine Screen Urine NEGATIVE (NEGATIVE); Tricyclic Antidepressant Urine NEGATIVE (NEGATIVE)
[2024-06-24 16:52] LABS: Estimated Average Glucose 105 mg/dL; Glycohemoglobin A1C 5.3 % (4.5-6.2)
[2024-06-26 07:07] LABS: HBsAg Screen Negative (Negative); HCV Ab Non Reactive (Non Reactive); HIV Ab/p24 Ag Screen Non Reactive (Non Reactive)
[2024-06-26 13:07] LABS: Rapid Plasma Reagin, Quant Non Reactive titer (NonRea<1:1)
[2024-06-27 13:17] LABS: BOX Test Reference Lab FIRELANDS
[2024-06-30 14:12] LABS: Cannabinoid Positive (.); Carboxy THC Conf, MS, UR 730 ng/mL (Cutoff=10)
== END 2024-06-24 15:51 | disposition home or self-care (01) ==
LOC: LAB 15:52
PROVIDERS: Visit Provider Obstetrics & Gynecology
DX: Z34.01 Encounter for supervision of normal first pregnancy, first trimester (principal); Z36.0 Encounter for antenatal screening for chromosomal anomalies; N92.6 Irregular menstruation, unspecified
CPT/HCPCS: 36415; 80307; 80349; 83036; 85025; 86592; 86762; 86803; 86850; 86900; 86901; 87086; 87340; 87389

== ENCOUNTER 2024-11-03 15:52 | Outpatient (OUT) | payer MEDICAID, SELFPAY ==
--- NOTE | 2024-11-03 15:55 | US_ITS ---
[facility] [place] [id number] Patient Name: KALYN MARTINEZ MRN: [id number] date: 2005 Sex: F Assigned Patient Location: US Current Patient Location: US Accession/Order Number: [id number] Exam Date: 11/03/2024 17:00 Report Date: 11/03/2024 17:05 At the request of: WILLI ZAMBRANO DO Procedure: US OB growth Ultrasound ultrasound to assess for growth HISTORY: Small for gestational age Fetus in cephalic presentation with longitudinal lie. The amniotic fluid index is 13.9 cm within normal limits. The largest fluid pocket measures 6.3 cm. The placenta is in anterior position and is normal. There is a hypoechoic area identified in the placenta measuring 1.4 x 4.0 x 2.7 cm. May represent septation. Grade 1 placenta. heart rate 130 bpm. Possible nuchal CORD. History weight is 1642 g which is 35.5 percentile. Estimated delivery by ultrasound is 30 weeks 6 days. Estimated date of delivery by last menstrual period 30 weeks 6 days US/US OB growth IMPRESSION: Single live intrauterine gestation 30 weeks 6 days. Possible nuchal cord. There is septation of the placenta. Likely a normal benign finding. Impression dictated by: Froy Ladd M.D. 11/03/2024 5:05 PM Dictation Location: [employer] Electronically authenticated by: [id number] Y Date: 11/03/2024 17:05
--- OUTSIDE RECORDS SUMMARY | 2024-11-03 16:01 | XMS_ITS | CCD ---
Author Organization [facility] Care Team Providers Care Anesthesiologist Name Role Phone Sravani Dumont Unavailable JORGE PROCTOR Primary Care Unavailable JEROMY TIJERINA Attending Unavailable Unavailable Primary Care Provider UnavailPARESH Isabel Attending Unavailable PARESH IRBY Admitting Unavailable Provider, None Primary Care Unavailable Willi Christiansen DO Attending Provider [phone] Елена, Willi Attending Unavailable Елена, Willi Admitting Unavailable ЕЛЕНА, WILLI Attending Unavailable ЕЛЕНА, WILLI Referring Unavailable ЕЛЕНА, WILLI Attending Unavailable KENNY, KRISTINA Attending Unavailable KENNY, KRISTINA Attending Unavailable KENNY, KRISTINA Attending Unavailable ЕЛЕНА, WILLI Attending Unavailable ЕЛЕНА, WILLI Attending Unavailable KENNY, KRISTINA Attending Unavailable ЕЛЕНА, WILLI Attending Unavailable ЕЛЕНА, WILLI Attending Unavailable ЕЛЕНА, WILLI Referring Unavailable Allergies Allergy Classification Reported Allergen(s) Allergy Type Date of Onset Reaction(s) Facility (18 sources) Amoxicillin; Translations: [AMOXICILLIN] Drug Allergy 12-27-2022 [facility] Medications Current Medications Medication Drug Class(es) Dates Sig (Normalized) Sig (Original) [id number] 200 actuat albuterol 0.09 mg/actuat metered dose inhaler (4 sources) beta2-Adrenergic Agonist Start: 05-08-2021 Albuterol Sulfate HFA 108 (90 Base) MCG/ACT 1 or 2 puff as needed Inhalation every 4 hrs for 30 day(s) Apr, Active Start: 05-08-2021 Albuterol Sulf ate HFA 108 (90 Base) MCG/ACT 1 or 2 puff as needed Inhalation every 4 hrs for 30 day(s) Apr, Active docusate sodium 100 mg oral capsule (2 sources) Start: 11-03-2024 End: 11-13-2024 take 1 capsule by mouth twice daily as needed for constipation docusate sodium (Colace) 100 MG capsule Indications: Constipation, unspecified constipation type Take 1 capsule (100 mg) by mouth 2 (two) times a day as needed for constipation for up to 10 days 30 capsule 5 11/03/2024 11/13/2024 Active etonogestrel 68 mg drug implant (2 sources) Progestin Nexplanon 68 MG as directed Subcutaneous Active multivitamin () 27-0.8 MG tablet (2 sources) Start: 07-06-2023 take 1 tablet by mouth in the morning multivitamin () 27-0.8 MG tablet Take 1 tablet by mouth in the morning. Take with food.. 0 07/06/2023 Active nitrofurantoin, macrocrystals 25 mg / nitrofurantoin, monohydrate 75 mg oral capsule (2 sources) Nitrofuran Antibacterial Start: 10-04-2024 End: 10-11-2024 take 1 capsule by mouth in the morning nitrofurantoin, macrocrystal-monoh ydrate, (Macrobid) 100 MG capsule Indications: UTI symptoms Take 1 capsule (100 mg) by mouth in the morning and 1 capsule (100 mg) before bedtime. Do all this for 7 days. 14 capsule 10/04/2024 10/11/2024 Active ondansetron 4 mg disintegrating oral tablet (11 sources) Serotonin-3 Receptor Antagonist Start: 06-24-2024 End: 07-24-2024 take 1 tablet by mouth every six hours as needed for nausea and vomiting and nausea and nausea ondansetron ODT (Zofran-ODT) 4 MG disintegrating tablet Indications: Nausea Take 1 tablet (4 mg) by mouth every 6 (six) hours if needed for nausea or vomiting 30 tablet 3 06/24/2024 07/24/2024 Active Start: 01-26-2024 End: 02-25-2024 take 1 tablet by mouth every six hours as needed for nausea and vomiting and nausea and nausea ondansetron ODT (Zofran-ODT) 4 MG disintegrating tablet Indications: Nausea Take 1 tablet (4 mg) by mouth every 6 (six) hours if needed for nausea or vomiting 30 tablet 2 01/26/2024 02/09/2024 Discontinued Start: 07-25-2023 End: 08-24-2023 take 1 tablet by mouth twice daily [...] needed for 5 day(s) PRN Apr, Active polysaccharide iron complex 391 mg oral capsule (2 sources) Start: 11-03-2024 End: 12-03-2024 take 1 capsule by mouth once daily iron polysaccharides (ProFe) 391.3 (180 Fe) MG capsule Indications: 30 weeks gestation of , Third trimester Take 1 capsule (391.3 mg) by mouth Daily 30 capsule 6 11/03/2024 12/03/2024 Active MV-Min-Fe Fum-FA-DHA ( 1 PO) (17 sources) MV-Min- Fe Fum-FA-DHA ( 1 PO) Take 1 each by mouth Daily Active Vit-Fe Fumarate-FA ( Vitamins) 28-0.8 MG tablet (11 sources) Start: 06-24-2024 End: 11-03-2024 take 1 tablet by mouth once daily Vit-Fe Fumarate-FA ( Vitamins) 28-0.8 MG tablet Indications: Missed menses , , unspecified gestational age , Encounter for supervision of normal first in first trimester Take 1 tablet by mouth Daily 30 tablet 11 06/24/2024 11/03/2024 Discontinued Start: 06-24-2024 End: 06-24-2025 take 1 tablet by mouth once daily Vit-Fe Fumarate-FA ( Vitamins) 28-0.8 MG tablet Indications: Missed menses , , unspecified gestational age , Encounter for supervision of normal first in first trimester Take 1 tablet by mouth Daily 30 tablet 11 06/24/2024 06/24/2025 Active pyridoxine hydrochloride 25 mg oral tablet (2 sources) take 1 tablet by mouth in the morning pyridoxine (Vitamin B-6) 25 MG tablet Take 25 mg by mouth in the morning. 0 Active sulfamethoxazole 800 mg / trimethoprim 160 mg oral tablet (1 source) Dihydrofolate Reductase Inhibitor Antibacterial, Sulfonamide Antimicrobial Start: 03-08-20 take 1 tablet by mouth every twelve hours Sulfamethoxazole-T rimethoprim 800-160 MG 1 tablet Orally Twice a day for 10 day(s) Feb, Active terconazole 4 mg/ml vaginal cream (2 sources) Azole Antifungal Start: 07-27-19 End: 08-03-19 terconazole (Terazol 7) 0.4 % vaginal cream Indications: Yeast infection Insert 1 applicator into the vagina at bedtime for 7 days 45 g 07/27/2024 08/03/2024 Active Completed/Discontinued Medications Medication Drug Class(es) Dates [...] 1 tablet Orally Once a day Active lanolin 1000 mg/ml topical cream (3 sources) Start: 10-09-2023 End: 02-09-2024 lanolin (Lansinoh) cream Indications: Dry skin Apply topically if needed for dry skin 7 g 2 10/09/2023 02/09/2024 Discontinued omeprazole 20 mg delayed release oral capsule (3 sources) Proton Pump Inhibitor Start: 01-26-2024 End: 05-25-2024 take 1 capsule by mouth before mealtime omeprazole (PriLOSEC) [address] capsule Indications: Gastroesophageal Reflux Disease , Heartburn Take 1 capsule (20 mg) by mouth in the morning. Take before meals. Do not crush or chew.. 30 capsule 3 01/26/2024 02/09/2024 Discontinued Problems Active Problems Problem Classification Problem Date Documented Da te Episodic/Chronic Conditions associated with dizziness or vertigo (1 source) Dizziness and giddiness Episodic Deficiency and other anemia (5 sources) Iron deficiency anemia; Translations: [Iron deficiency anemia, unspecified] Episodic Deficiency and other anemia (1 source) Iron deficiency anemia, unspecified Episodic Genitourinary symptoms and ill-defined conditions (2 sources) Urinary symptoms ; Translations: [Unspecified symptoms and signs involving the genitourinary system] 10-04-2024 Episodic Immunizations and screening for infectious disease (2 sources) Exposure to sexually transmissible disorder; Translations: [Contact with and (suspected) exposure to infections with a predominantly sexual mode of transmission] 07-27-2024 Episodic Menstrual disorders (2 sources) Missed period; Translations: [Irregular menstruation, unspecified] 07-18-2023 Chronic Mycoses (2 sources) Mycosis; Translations: [Candidiasis, unspecified] 07-27-2024 Episodic Nausea and vomiting (2 sources) Nausea; Translations: [Nausea] Onset: 05-08-2021 Resolved: 05-08-2021 Episodic Other acquired deformities (5 sources) Leg length inequality; Translations: [Unequal limb length (acquired), unspecified site] Episodic Other complications of (2 sources) Anemia of ; Translations: [Anemia complicating , unspecified trimester] 11-03-2024 Chronic Other complications of (1 source) Mild hyperemesis gravidarum; Translations: [Mild hyperemesis gravidarum] Onset: 07-18-2023 Episodic Other gastrointestinal disorders (2 sources) Constipation; Translations: [Constipation, unspecified] 11-03-2024 Episodic Other lower respiratory disease (1 source) Pleurodynia Episodic Other and delivery including normal (8 sources) ; Translations: [Encounter for supervision of normal , unspecified, unspecified trimester] 06-24-2024 Episodic Other screening for suspected conditions (not mental disorders or infectious disease) (4 sources) Patient encounter status; Translations: [Encounter for other specified screening] 07-27-2024 Episodic Residual codes; unclassified (2 sources) Gestation period, 16 weeks; Translations: [16 weeks gestation of ] 07-27-2024 Episodic Residual codes; unclassified (2 sources) Gestation period, 26 weeks; Translations: [26 weeks gestation of ] 10-04-2024 Episodic Residual codes; unclassified (2 sources) Gestation period, 30 weeks; Translations: [30 weeks gestation of ] 11-03-2024 Episodic Short gestation; low weight; and growth retardation (4 sources) Acfsq-kxn-itlks baby; Translations: [[place] small for gestational age, unspecified weight] 10-04-2024 Episodic Unclassified (1 source) Vomiting During Onset: 07-18-2023 Unclassified (1 source) 8 weeks , congested, vomiting, sore throat Onset: 07-18-2023 Past or Other Problems Problem Classification Problem Date Documented Date Episodic/Chronic Noninfectious gastroenteritis (1 source) Noninfective gastroenteritis and colitis, unspecified Onset: 05-08-2021 Resolved: 05-08-2021 Episodic Other lower respiratory disease (1 source) Wheezing Onset: 05-08-2021 Resolved: 05-08-2021 Episodic Other upper respiratory infections (1 source) Acute pharyngitis, unspecified Onset: 05-08-2021 Resolved: 05-08-2021 Episodic Residual codes; unclassified (2 sources) Gestation period, 37 weeks; Translations: [37 weeks gestation of ] 02-09-2024 Episodic Skin and subcutaneous tissue infections (1 source) Cutaneous abscess of left lower limb; Translations: [Abscess of left thigh L02.416] Onset: 03-08-2021 Resolved: 03-08-2021 Episodic Unclassified (1 source) Cough R05.9 Onset: 05-08-2021 Resolved: 05-08-2021 Results Test Name Value Interpretation Reference Range Facility Urinalysis macro (dipstick) panel (U)on 11-03-2024 Bilirubin, UA Negative Negative - 4(70) +++ mg/dL [facility] Blood, UA Positive Negative - 50 Onur/mcL [facility] Comment on above: trace-intact Clarity, UA Clear [facility] re Color, UA Yellow [facility] e Glucose, UA Negative Negative - 1999(110) ++++ mg/dL [facility] Interpretation and review of laboratory results Abnormal [facility] re Ketones, UA Negative Negative - 160(16) ++++ mg/dL [facility] Leukocytes, UA Positive Negative - 500+++ Todd/mcL [facility] Comment on above: small Nitrite, UA Negative Negative - Positive [facility] pH, UA 7.5 5 - 9 [facility] e Protein, UA Negative Negative - 1999(20) ++++ mg/dL [facility] Spec Grav, UA 1.02 1 - 1.03 [facility] Urobilinogen, UA 0.2 0.2 - 12 mg/dL [facility] Urinalysis macro (dipstick) panel (U)on 10-04-2024 Bilirubin, UA Negative Negative - 4(70) +++ mg/dL [facility] Blood, UA Positive Negative - 50 Onur/mcL [facility] Comment on above: large Clarity, UA Clear [facility] [employer] re Color, UA Yellow [facility] [employer] e Glucose, UA Negative Negative - 1999(110) ++++ mg/dL [facility] Interpretation and review of laboratory results Abnormal [facility] re Ketones, UA Negative Negative - 160(16) ++++ mg/dL [facility] Leukocytes, UA Trace Negative - 500+++ Todd/mcL [facility] Nitrite, UA Negative Negative - Positive [facility] pH, UA 7 5 - [facility] Protein, UA Trace Negative - 1999(20) ++++ mg/dL [facility] Spec Grav, UA 1.02 1 - 1.03 [facility] Urobilinogen, UA 0.2 0.2 - 12 mg/dL [facility] US OB 14+ WEEKS ANATOMY SCAN on 08-24-2024 US OB 14+ WEEKS ANATOMY SCAN EXAM: US OB 14+ WEEKS ANATOMY SCAN HISTORY: anatomy. COMPARISON: OB ultrasound 06/24/2024. [...] with limited visualization of the spine. A short-term follow-up ultrasound is recommended to further evaluate the spine, as well as monitor placental previa. 3. Marginal placental previa. Electronically Signed:Nikkoall y signed by KATEY SPIVEY II, MD, PHD at 25-Aug-2024 08:37:46 AM [facility] Normal Not Available Comment on above: Order Comment: US OB ANATOMY SINGLE W US OB CERVICAL LENGTH Estimated Date of Delivery: 01/06/25 Gestational Age as of 07/27/2024: 16w5d BOX TESTon 06-24-2024 BOX TEST SENT OUT [facility] BOX1 [facility] BOX2 06/24/24 [facility] HCG ( test) Ql (U)o n 06-24-2024 Interpretation and review of laboratory results Abnormal [employer] re Preg Test, Ur Positive Negative [employer] [facility] US OB < 14 WEEKS EARLYon US OB < 14 WEEKS EARLY TITLE OF EXAM: OB Ultrasound: REASON FOR EXAM: Dating COMPARISON: None TECHNIQUE: [...] signed and approved by the interpreting radiologist. Normal Not Available Comment on above: Order Comment: US OB < 14 Weeks (Abdominal ONLY) No LMP recorded. Urinalysis macro (dipstick) panel (U)on 06-24-2024 Bilirubin, UA Negative Negative - 4(70) +++ mg/dL [facility] Blood, UA Negative Negative - 50 Onur/mcL [facility] Clarity, UA Clear [facility] Color, UA Yellow [facility] Glucose, UA Negative Negative - 2000(110) ++++ mg/dL [facility] Interpretation and review of laboratory results Abnormal [facility] Ketones, UA Positive Negative - 160(16) ++++ mg/dL [facility] Comment on above: 40 Leukocytes, UA Positive Negative - 500+++ Todd/mcL [facility] Comment on above: small Nitrite, UA Negative Negative - Positive [facility] pH, UA 7 5 - 9 [facility] Protein, UA Positive Negative - 2000(20) ++++ mg/dL [facility] Comment on above: 30 Spec Grav, UA 1.025 1 - 1.03 [facility] Urobilinogen, UA 0.2 0.2 - 12 mg/dL [facility] Urine Cultureon 06-24-2024 Bacteria identified Cx Nom (U) 75,000 colonies/ml mixed bacterial skin contaminants 2 Days PERFORMED BY: [facility] [place] [address] PATHOLOGIST BUSINESS LINE MANAGER FABBY ROSSI M.D. Normal [facility] Comment on above: Performed By: #### C UU #### [facility] [address] Consent Formson 05-18-2024 Consent Forms [id number] [email or web address] [facility] ED Clinical Summaryon 2023 ED Clinical Summary [facility] ? Urgent Care [address] [place] [id number] Clinical Summary PERSON INFORMATION Name: SHAYLA MARTINEZ Age: 18 Years Sex: FEMALE : 2005 MRN: Acct#: Visit Reason: Medical screening exam; [facility] Arrival: 05/17/2024 13:06:33 Discharge: 05/17/2024 14:08:00 LOS: 000 01:02 Check In: 05/17/2024 13:06:33 Checkout: 05/17/2024 14:08:00 Address: [address] [place] [address] PCP: Provider, None PROVIDER INFORMATION Provider Role [...] DIAGNOSIS: Physical exam Patient Understands: Yes - Patient/family/careg iver verbalizes understanding of instructions given Comment: [facility] ED Patient Summaryon 024 ED Patient Summary [facility] ? Urgent Care [address] [place] [address] [id number] PATIENT DISCHARGE INSTRUCTIONS Patient Information Name: SHAYLA MARTINEZ Age: 18 Years Date of : 2005 Reason For Visit: Medical screening exam; [facility] Arrival Time: 05/17/2024 13:06:33 Primary Care Physician: Provider, None Attending Physician: PARESH IRBY Comment: Patient Education With: Address: When: Your primary provider in your hometown , only if needed Medication Information: The exam and treatment you received today in the [facility] Emergency Department were for an urgent problem and are not intended as complete care. It is important for you to follow up with a doctor, nurse practitioner, or physician?s seed laboratory assistant for ongoing care. If your symptoms [...] so we can reach you if necessary. [facility] Emergency Department has provided you with a complete list of medications post discharge. Please inform your sports management intern/provider of your visit and for further instruction on these medications. Any specific questions regarding your chronic medications and dosages should be discussed with your primary care physician(s) and/or pharmacist. Visit Information Visit Diagnosis: Diagnoses This Visit Medical screening exam ([id number]) Physical exam (Z00.00) If you received any [...] for Disease Control and Prevention February 2014 [facility] Urgent Care Note- Provideron 05-17-2024 Urgent Care Note- Provider Patient: SHAYLA MARTINEZ Age: 18 years Sex: FEMALE : [...] - Pharynx pink and moist. NECK: -Supple (oicc-cw-poobs): non-tender. CARD: -Rate and rhythm: Regular -Edema: [...] Plan Assessment and Plan: Diagnosis: Physical exam ([id number]-IR Z00.00). Cleared for employment [Electronically Signed on: 05/17/2024 14:05 EST] PARESH IRBY [Verified on: 05/17/2024 14:05 EST] PARESH IRBY [facility] Recordon 024 Urgent Care Record [facility] ? Urgent Care [address] [place] [address] PATIENT DISCHARGE INSTRUCTIONS Patient Information Name: SHAYLA MARTINEZ Age: 18 Years Date of : 2005 Reason For Visit: Medical screening exam; [facility] Arrival Time: 05/17/2024 13:06:33 Primary Care Physician: Provider, None Attending Physician: PARESH IRBY Comment: Visit Diagnosis: Diagnoses This Visit Medical screening exam ([id number]) Physical exam (Z00.00) If you received any [...] and treatment you received today in the [facility] Care were for an urgent problem and are not intended as complete care. It is important for you to follow up with a doctor, nurse practitioner, or physician?s seed laboratory assistant for ongoing care. If your symptoms [...] so we can reach you if necessary. [facility] has provided you with a complete list of medications post discharge. Please inform your sports management intern/provider of your visit and for further instruction [...] for Disease Control and Prevention February 2014 [facility] ALL CBC WITH AUTO DIFFon Erythrocyte distribution width (RBC) [Ratio] 15.7 % High 11.0 - 15.0 % [facility] Hematocrit (Bld) [Volume fraction] 30.7 % Low 36.0 - 48.0 % [facility] Hemoglobin (Bld) [Mass/Vol] 10.0 g/dL Low 12.0 - 16.0 g/dL [facility] Interpretation and review of laboratory results Abnormal [facility] re MCH (RBC) [Entitic mass] 27.9 pg 26.7 - 34.[address] [facility] MCHC (RBC) [Mass/Vol] 32.6 g/dL 29.9 - 35.2 g/dL [facility] MCV (RBC) [Entitic vol] 85.8 fL 81.0 - 99.[address] [facility] Platelet mean volume (Bld) [Entitic vol] 10.9 fL 9.5 - 13.[address] [facility] TB PLT 282 [facility] TB RBC 3.58 Low [facility] TBH WBC 17.2 High [facility] TBH UA (CLEAN/CATCH) PERFORMANCE ENGINEER/CORONA RO IF IND.on 02-12-2024 BILIRUBIN URINE Negative NEGATIVE [facility] BLOOD URINE Negative NEGATIVE [facility] Clarity (U) CLEAR CLEAR [facility] re Color (U) YELLOW YELLOW [facility] GLUCOSE URINE UA Negative NEGATIVE mg/dL [facility] Interpretation and review of laboratory results Abnormal [facility] re Ketones Ql (U) TRACE Abnormal NEGATIVE mg/dL [facility] H ealthcare Leukocyte esterase Test strip Ql (U) TRACE Abnormal NEGATIVE [facility] NITRITE URINE Negative NEGATIVE [facility] pH (U) 6.5 [pH] 5.0 - 9.0 [facility] PROTEIN URINE Negative NEG/TRACE mg/dL [facility] SPECIFIC GRAVITY URINE >=1.030 Abnormal 1.005 - 1.[address] [facility] URINE MICROSCOPIC INDICATED YES [facility] UROBILINOGEN URINE 0.2 EU/dL 0.2 - 1.0 EU/dL [facility] TBH BOX TEST SENT OUTon 01-15 B[facility] Comment on above: See Scanned Report. [facility] Urinalysis macro (dipstick) panel (U)on 02-09-2024 Bilirubin, UA Negative Negative - 4(70) +++ mg/dL [facility] Blood, UA Positive Negative - 50 Onur/mcL [facility] Comment on above: trace-intact Clarity, UA Clear [facility] re Color, UA Yellow [facility] Glucose, UA Negative Negative - 1999(110) ++++ mg/dL [facility] Interpretation and review of laboratory results Abnormal [facility] re Ketones, UA Negative Negative - 160(16) ++++ mg/dL [facility] Leukocytes, UA Trace Negative - 500+++ Todd/mcL [facility] Nitrite, UA Negative Negative - Positive [facility] pH, UA 6.5 5 - 9 [facility] Protein, UA Negative Negative - 1999(20) ++++ mg/dL [facility] Spec Grav, UA 1.030 1 - 1.03 [facility] Urobilinogen, UA 0.2 0.2 - 12 mg/dL [facility] TBH BOX TEST SENT OUTon 07-17 BOX TEST SENT OUT SENT 07/29 [facility] HCG ( test) Ql (U)o n 07-25-2023 Interpretation and review of laboratory results Abnormal [facility] re Preg Test, Ur Positive [facility] Urinalysis macro (dipstick) panel (U)on 07-25-2023 Bilirubin, UA Negative Negative - 4(70) +++ mg/dL [facility] Blood, UA Negative Negative - 50 Onur/mcL [facility] Clarity, UA Clear [facility] re Color, UA Yellow [facility] Glucose, UA Negative Negative - 1999(110) ++++ mg/dL [facility] Interpretation and review of laboratory results Abnormal [facility] Health[facility] re Ketones, UA Positive Negative - 160(16) ++++ mg/dL [facility] Leukocytes, UA Positive Negative - 500+++ Todd/mcL [facility] Nitrite, UA Negative Negative - Positive [facility] pH, UA 7.0 5 - 9 [facility] Protein, UA Positive Negative - 1999(20) ++++ mg/dL [facility] Spec Grav, UA 1.025 1 - 1.03 [facility] Urobilinogen, UA 1.0 0.2 - 12 mg/dL [facility] BASIC METABOLIC PANLon 07-18 Anion gap [Moles/Vol] 9 mmol/L Normal 5-15 [facility] Comment on above: Performed By: #### B MP #### [facility] ([id number]) [address] [place] [address] Calcium [Mass/Vol] 9.1 mg/dL Normal 8.5-10.5 [facility] Comment on above: Performed By: #### B MP #### [facility] ([id number]) [address] [place] [address] Chloride [Moles/Vol] 104 mmol/L Normal 98-109 [facility] Comment on above: Performed By: #### B MP #### [facility] ([id number]) [address] [place] [address]11 CO2 [Moles/Vol] 21 mmol/L Low 22-32 [facility] Comment on above: Performed By: #### B MP #### [facility] ([id number]) [address] [place] [address]88 Creatinine [Mass/Vol] 0.58 mg/dL Normal 0.30-1.00 [facility] Comment on above: Result Comment: METH OD TRACEABLE TO IDMS STANDARD Performed By: #### B MP #### [facility] ([id number]) [address] [place] [address]67 eGFR (CKD-EPI) NON-RACE DEPENDENT >90 Normal >59 [facility] Comment on above: Result Comment: Reported eGFR is based on the CKD-EPI 2020 equation that does not use a race coefficient. Performed By: #### B MP #### [facility] ([id number]) [address] [place] [address] 19857 Glucose [Mass/Vol] 106 mg/dL High 65-99 [facility] Comment on above: Performed By: #### B MP #### [facility] ([id number]) [address] [place] [address]31 Potassium [Moles/Vol] 3.5 mmol/L Normal 3.5-5.0 [facility] Comment on above: Performed By: #### B MP #### [facility] ([id number]) [address] [place] [address]1552 Sodium [Moles/Vol] 134 mmol/L Normal 134-146 [facility] Comment on above: Performed By: #### B MP #### [facility] ([id number]) [address] [place] [address] 85485 Urea nitrogen [Mass/Vol] 10 mg/dL Normal 5-23 [facility] Comment on above: Performed By: #### B MP #### [facility] ([id number]) [address] [place] [address]8224 HCG ( test) Ql (U)o n 07-18-2023 Beta HCG ( test) Ql (U) Positive Abnormal NEG [facility] Comment on above: Performed By: #### 2 106-3 #### [facility] ([id number]) [address] [place] [address] SARS/FLU A+B/RSV by NAAT/Mol ecularon 07-18-2023 SARS/FLU [...] operators who are performing tests using either [employer] [facility] or [employer] systems and is limited to laboratories that [...] repeat. Fact Sheet for Healthcare Providers: https://www.fda.gov/ media/282400/downloa d Fact Sheet for Patients: https://www.fda.gov/ media/141470/downloa d [facility] Comment on above: Performed By: #### C OVFLR #### [facility] ([id number]) [address] [place] [address]247 URINE CULTUREon 07-18-2023 Bacteria identified Cx Nom (U) CULTURE RESULTS 50-100,000 ORGANISMS/ML NORMAL UROGENITAL ADLEE Normal [facility] Comment on above: Performed By: #### 6 30-4 #### [facility] ([id number]) [address] [place] [address], [address] [place] [address] URN MACROSCOPIC NURon 2023 BILIRUBIN MARLYS Negative Normal NEG [facility] Comment on above: Performed By: #### N UM #### [facility] ([id number]) [address] [place] [address]87 BLOOD/HGB MARLYS Negative Normal NEG [facility] Comment on above: Performed By: #### N UM #### [facility] ([id number]) [address] [place] [address] [place] [address] GLUCOSE MARLYS Negative Normal NEG [facility] Comment on above: Performed By: #### N UM #### [facility] ([id number]) [address] [place] [address] [place] [address] KETONES MARLYS 40 mg/dL Abnormal NEG [facility] Comment on above: Performed By: #### N UM #### [facility] ([id number]) [address] [place] [address] [place] [address] LEUKOCYTE ESTERASE MARLYS Small Abnormal NEG [facility] Comment on above: Performed By: #### N UM #### [facility] ([id number]) [address] [place] [address] [place] [address] NITRITE MARLYS Negative Normal NEG [facility] Comment on above: Performed By: #### N UM #### [facility] ([id number]) [address] [place] [address] [place] [address] PH MARLYS 7.5 Normal 5.0-8.5 [facility] Comment on above: Performed By: #### N UM #### [facility] ([id number]) [address] [place] [address] PROTEIN MARLYS 30 mg/dL Abnormal NEG [facility] Comment on above: Performed By: #### N UM #### [facility] ([id number]) [address] [place] [address] SPECIFIC GRAVITY MARLYS 1.020 Normal 1.003-1.035 [facility] Comment on above: Performed By: #### N UM #### [facility] ([id number]) [address] [place] [address] UROBILINOGEN MARLYS 2.0 eu/dL High <1.1 [facility] Comment on above: Performed By: #### N UM #### [facility] ([id number]) [address] [place] [address]105 COVID Quick Testingon 2020 Result Negative [employer] Other Quick Strepon 05-08-2021 S. pyogenes Org specific cx Ql (Throat) Negative [employer] [facility] [email or web address] Other Quick Strep [employer] [facility] [email or web address] Other XR chest 2V*on 05-08-2021 XR chest 2V* [facility] [employer] Other XR chest 2V* [facility] [employer] Other XR chest 2V* [address] [place] [address] [employer] Other XR chest 2V* [place] [address] [facility]@ Other XR chest 2V* XRay Report [employer] Other XR chest 2V* Signed [employer] Other XR chest 2V* Patient: Shayla Martinez MR#: [id number] [employer] Other XR chest 2V* [id number] [employer] Other XR chest 2V* : 2005 Acct:[id number] [employer] Other XR chest 2V* Age/Sex: 15 / F ADM Date: 05/08/21 [employer] Other XR chest 2V* Loc: [facility] Room: Type: [facility] [employer] Other XR chest 2V* Attending Dr: Sravani Dumont APRN, SAHIL [employer] Other XR chest 2V* Ordering Provider: Sravani Dumont APRN, MAXIMILIANO [employer] Other XR chest 2V* Date of Service: 05/08/21 [employer] Other XR chest 2V* XR/XR chest 2V*: Cough;Wheezing [employer] Other XR chest 2V* Copies to: Sravani Dumont APRN, MAXIMILIANO [employer] Other XR chest 2V* PA AND LATERAL CHEST: [employer] Other XR chest 2V* CLINICAL HISTORY: Crackling and diminished lung sounds on exam today. Body aches, fever and [employer] Other XR chest 2V* productive cough. [employer] Other XR chest 2V* COMPARISON: None [employer] Other XR chest 2V* There is no focal parenchymal consolidation, effusion or pneumothorax. The cardiac, hilar and [employer] Other XR chest 2V* mediastinal silhouettes are within normal limits. There is no vascular congestion. The [employer] Other XR chest 2V* visualized bony thorax is intact. There is subtle reverse S-shaped scoliotic curvature. [employer] Other XR chest 2V* XR/XR chest 2V* [employer] Other XR chest 2V* IMPRESSION: [employer] Other XR chest 2V* NO ACUTE CARDIOPULMONARY ABNORMALITY. [employer] Other XR chest 2V* Impression dictated by: Radha Joyce M.D.05/08/2021 2:43 PM [employer] Other XR chest 2V* Dictation Location: [place] [address] [employer] Other XR chest 2V* Transcribed By: VIC 05/08/21 [facility] [employer] Other XR chest 2V* Dictated By: Radha Joyce MD 05/08/21 [facility] [employer] Other XR chest 2V* Signed By: [employer] Other XR chest 2V* 05/08/21 [facility] [employer] [facility] [employer] Other Vital Signs Date Time Vital Sign Value Performing Clinician Facility 11-03-2024 09:21-0400 Body weight 105.14 kg Kristina RHODES Work Phone: [facility] 11-03-2024 09:21-0400 Diastolic blood pressure 80 mm[Hg] Kristina RHODES Work Phone: [facility] 11-03-2024 09:21-0400 Systolic blood pressure 120 mm[Hg] Kristina RHODES Work Phone: [facility] 10-04-2024 15:22-0400 Body weight 104.06 kg Kristina RHODES Work Phone: [facility] 10-04-2024 15:22-0400 Diastolic blood pressure 76 mm[Hg] Kristina RHODES Work Phone: [facility] 10-04-2024 15:22-0400 Systolic blood pressure 110 mm[Hg] Kristina RHODES Work Phone: [facility] 07-27-2024 14:56-0500 Body weight 94.8 kg Willi Елена DO Work Phone: [facility] 07-27-2024 14:56-0500 Diastolic blood pressure 70 mm[Hg] Willi Елена DO Work Phone: [facility] 07-27-2024 14:56-0500 Systolic blood pressure 122 mm[Hg] Willi Елена DO Work Phone: [facility] 02-09-2024 11:08-0400 Body weight 99.7 kg Willi Елена DO Work Phone: [facility] 02-09-2024 11:08-0400 Diastolic blood pressure 80 mm[Hg] Willi Елена DO Work Phone: [facility] 02-09-2024 11:08-0400 Systolic blood pressure 120 mm[Hg] Willi Елена DO Work Phone: [facility] 07-25-2023 10:08-0500 Body weight 73.85 kg [facility] Nurse [facility] 04-16-2022 14:30-0400 Body weight 79.74 kg Sravani Dumont Other [employer] Other 04-16-2022 14:30-0400 Diastolic blood pressure 74 mm[Hg] Sravani Dumont Other [employer] Other 04-16-2022 14:30-0400 SaO2% (BldA) [Mass fraction] 96 % Sravani Dumont Other [employer] Other 04-16-2022 14:30-0400 Systolic blood pressure 116 mm[Hg] Sravani Jonesbharath Other [employer] Other 03-08-2021 14:00-0400 Body height 166.37 cm Sravani Dumont Other [employer] Other 03-08-2021 14:00-0400 Body mass index (BMI) [Ratio] 29.33 kg/m2 Sravani Dumont Other [employer] Other 03-08-2021 14:00-0400 Body weight 81.19 kg Sravani Dumont Other [employer] Other 03-08-2021 14:00-0400 Diastolic blood pressure 66 mm[Hg] Sravani Julia Other [employer] Other 03-08-2021 14:00-0400 Respiratory rate 18 /min Sravani Dumont Other [employer] Other 03-08-2021 14:00-0400 SaO2% (BldA) [Mass fraction] 100 % Sravani Cobbcarlos a Other [employer] Other 03-08-2021 14:00-0400 Systolic blood pressure 120 mm[Hg] Sravani Jonesbharath Other [employer] Other Encounters Encounter Date Encounter Type Care Provider Facility Start: 11-03-2024 End: 11-03-2024 Carmen RHODES Work Phone: [facility] Start: 11-03-2024 End: 11-03-2024 Carmen RHODES Work Phone: [facility] Start: 11-03-2024 End: 11-03-2024 Office outpatient visit 15 minutes Kristina RHODES Work Phone: [facility] Comment on above: 30 weeks gestation o f ; Third trimester ; SGA (small for gestational age); Antepartum anemia; Constipation, unspecified constipation type Start: 10-04-2024 End: 10-04-2024 ambulatory KRISTINA COX Not Available Start: 10-04-2024 End: 10-04-2024 Office outpatient visit 15 minutes Kristina RHODES Work Phone: [facility] Comment on above: 26 weeks gestation o f ; Second trimester ; Diabetes mellitus screening; UTI symptoms; SGA (small for gestational age) Start: 10-04-2024 End: 10-04-2024 Bamboo flowsheet Kristina RHODES Work Phone: [facility] Start: 10-04-2024 End: 10-04-2024 Bamboo flowsheet Kristina RHODES Work Phone: [facility] Start: 08-24-2024 End: 08-24-2024 ambulatory KRISTINA KENNY Not Available Start: 08-24-2024 End: 08-24-2024 ambulatory WILLI ЕЛЕНА Not Available Start: 07-27-2024 End: 07-27-2024 ambulatory WILLI ЕЛЕНА Not Available Start: 07-27-2024 End: 07-27-2024 Office outpatient visit 15 minutes Willi Елена DO Work Phone: [facility] Comment on above: 16 weeks gestation o f ; Second trimester ; Screening, , for anatomic survey; STD exposure; Yeast infection Start: 07-27-2024 End: 07-27-2024 Bamboo flowsheet Willi Елена DO Work Phone: [facility] Start: 07-27-2024 End: 07-27-2024 Bamboo flowsheet Willi Елена DO Work Phone: [facility] Start: 06-24-2024 End: 06-24-2024 ambulatory Willi Елена [facility] Work Phone: Start: 06-24-2024 End: 06-24-2024 Departed Referred Willi Елена DO Work Phone: [facility] Start: 06-24-2024 End: 06-24-2024 Clinisync Result Encounter Willi Елена DO Work Phone: [facility] Unsolicited Start: 06-24-2024 End: 06-24-2024 Clinisync Result Encounter Willi Елена DO Work Phone: [facility] Unsolicited Start: 06-24-2024 End: 06-24-2024 Office outpatient visit 5 minutes [facility] Елена Nurse [facility] Comment on above: GA: 12w0d Start: 06-24-2024 End: 06-24-2024 ambulatory WILLI ЕЛЕНА Not Available Start: 05-17-2024 End: 05-17-2024 ambulatory PARESH RHODES Facility:[facility] Start: 02-13-2024 End: 02-13-2024 Clinisync Result Encounter Willi Елена DO Work Phone: [facility] Unsolicited Start: 02-13-2024 End: 02-13-2024 Clinisync Result Encounter Willi Елена DO Work Phone: [facility] Unsolicited Start: 02-12-2024 End: 02-12-2024 Clinisync Result Encounter Willi Елена DO Work Phone: [facility] Unsolicited Start: 02-12-2024 End: 02-12-2024 Clinisync Result Encounter Willi Елена DO Work Phone: [facility] Unsolicited Start: 02-09-2024 End: 02-09-2024 Bamboo flowsheet Willi Елена DO Work Phone: [facility] Start: 02-09-2024 End: 02-09-2024 Bamboo flowsheet Willi Елена DO Work Phone: [facility] Start: 02-09-2024 End: 02-09-2024 Office outpatient visit 15 minutes Willi Елена DO Work Phone: [facility] Comment on above: 37 weeks gestation o f Start: 02-09-2024 End: 02-09-2024 ambulatory WILLI ЕЛЕНА Not Available Start: 01-26-2024 End: 02-10-2024 Clinisync Result Encounter Willi Елена DO Work Phone: [facility] Unsolicited Start: 01-26-2024 End: 02-10-2024 Clinisync Result Encounter Willi Елена DO Work Phone: [facility] Unsolicited Start: 01-26-2024 End: 01-26-2024 ambulatory WILLI ЕЛЕНА Not Available Start: 01-06-2024 End: 01-06-2024 ambulatory KRISTINA KENNY Not Available Start: 12-23-2023 End: 12-23-2023 ambulatory WILLI ЕЛЕНА Not Available Start: 11-19-2023 End: 11-19-2023 ambulatory WILLI ЕЛЕНА Not Available Start: 11-05-2023 End: 11-05-2023 ambulatory KRISTINA KENNY Not Available Start: 10-09-2023 End: 10-09-2023 ambulatory WILLI ЕЛЕНА Not Available Start: 07-29-2023 Clinisync Result Encounter Willi Елена DO Work Phone: [facility] Unsolicited Start: 07-29-2023 Clinisync Result Encounter Willi Елена DO Work Phone: [facility] Unsolicited Start: 07-25-2023 End: 07-25-2023 Office outpatient visit 5 minutes [facility] Елена Nurse [facility] Comment on above: GA: 9w3d Start: 07-18-2023 End: 07-18-2023 Emergency department patient visit JORGE PROCTOR [facility] Start: 11-28-2022 End: 11-28-2022 ambulatory Sravani Dumont Other [employer] Other Start: 11-28-2022 Telephone encounter Sravani Cobbshade her [facility] Start: 04-16-2022 End: 04-16-2022 ambulatory Sravani Julia Other [employer] Other Start: 04-16-2022 Encounter for routin e child health examination without abnormal findings Sravani Dumont [facility] Start: 04-16-2022 Periodic preventive med est patient 12-17yrs Sravani Dumont [facility] Start: 05-08-2021 End: 05-08-2021 ambulatory Sravani Julia Other [employer] Other Start: 05-08-2021 Office outpatient vi sit 15 minutes Sravani Dumont [facility] Start: 05-08-2021 Telephone encounter Sravani Cobbshade her [facility] Start: 03-08-2021 Office outpatient vi sit 15 minutes Sravani Dumont [facility] Procedures Date Procedure Procedure Detail Performing Clinician Start: 11-03-2024 Urnls dip stick/tabl et rgnt non-auto w/o micrscp Kristina Cox PA Work Phone: Start: 10-04-2024 Urnls dip stick/tabl et rgnt non-auto w/o micrscp Willi Елена DO Work Phone: Start: 06-24-2024 BOX TEST Willi Fazi o DO Work Phone: Start: 06-24-2024 Urnls dip stick/tabl et rgnt non-auto w/o micrscp Willi Елена DO Work Phone: Start: 02-13-2024 ALL CBC WITH AUTO DIFF Willi Елена DO Work Phone: Start: 02-12-2024 [facility] UA (CLEAN/CATCH) PERFORMANCE ENGINEER/MICRO IF IND. Willi Елена DO Work Phone: Start: 02-09-2024 Urnls dip stick/tabl et rgnt non-auto w/o micrscp Willi Елена DO Work Phone: Start: 01-26-2024 [facility] BOX TEST SENT OUT C ted Елена DO Work Phone: Start: 07-29-2023 [facility] BOX TEST SENT OUT C ted Lindseyzio DO Work Phone: Start: 07-25-2023 Urnls dip stick/tabl et rgnt non-auto w/o micrscp Willi Елена DO Work Phone: Plan of Treatment Date Care Activity Detail Author Start: 02-14-2025 Influenza vaccination Influenz a Vaccine (Season Ended) [facility] Start: 11-17-2024 End: 11-17-2024 Patient encounter procedure 11/17/2024 1:00 PM EDT Routine [facility] [address] [place] [id number] ЕленаWilli bello, DO [address] [place] [address] [facility] Start: 11-03-2024 End: 11-03-2025 Ferritin [Mass/volume] in Serum or Plasma Ferritin Lab Routine Antepartum anemia Expected: 11/03/2024 (Approximate), Expires: 11/03/2025 [facility] Comment on above: Expected: 11/03/2024 (Approximate), Expires: 11/03/2025 Start: 11-03-2024 End: 11-03-2025 Transferrin [Mass/volume] in Serum or Plasma Transferrin Lab Routine Antepartum anemia Expected: 11/03/2024, Expires: 11/03/2025 [facility] Comment on above: Expected: 11/03/2024 , Expires: 11/03/2025 Start: 10-20-2024 End: 10-20-2024 Patient encounter procedure 10/20/2024 11:20 AM EDT Routine [facility] [address] [place] [phone] Kristina Cox PA [address] [facility] [place] [address] [facility] Start: 10-20-2024 End: 10-20-2024 Professional / ancillary services management 10/20/2024 10:30 AM EDT Ancillary Procedure [facility] [address] [facility] [place] [phone] [facility] Start: 10-04-2024 End: 10-04-2025 CBC panel - Blood by Automated count CBC Lab Routine Diabetes mellitus screening Expected: 10/04/2024 (Approximate), Expires: 10/04/[address] [facility] Work Phone: Comment on above: Expected: 10/04/2024 (Approximate), Expires: 10/04/2025 Start: 10-04-2024 End: 10-04-2025 Measurement of glucose 1 hour after glucose challenge for glucose tolerance test Glucose tolerance, 1 hour Lab Routine Diabetes mellitus screening Expected: 10/04/2024 (Approximate), Expires: 10/04/2025 [facility] Comment on above: Expected: 10/04/2024 (Approximate), Expires: 10/04/2025 Start: 10-04-2024 End: 02-03-2025 US for US OB follow up transabdominal approach Imaging Routine 26 weeks gestation of Second trimester SGA (small for gestational age) Expected: 10/04/2024, Expires: 02/03/[address] [facility] Comment on above: Expected: 10/04/2024 , Expires: 02/03/2025 Start: 08-24-2024 End: 08-24-2024 Patient encounter procedure 08/24/2024 2:30 PM EDT Routine [facility] [address] [facility] [place] [phone] Kristina Cox PA [address] [facility] [place] [address] [facility] Start: 08-24-2024 End: 08-24-2024 Professional / ancillary services management 08/24/2024 1:30 PM EDT Ancillary Procedure [facility] [address] [facility] [place] [phone] [facility] Start: 07-27-2024 End: 07-27-2024 Patient encounter procedure 07/27/2024 2:20 PM EST Routine [facility] [address] [place] [phone] Willi Christiansen, DO [address] [facility] [place] [address] [facility] Start: 07-27-2024 End: 09-24-2024 Alpha fetoprotein, maternal Alpha fetoprotein, maternal Lab Routine Screening, , for anatomic survey Expected: 07/27/2024 (Approximate), Expires: 09/24/[address] [facility] Comment on above: Expected: 07/27/2024 (Approximate), Expires: 09/24/2024 Start: 07-27-2024 End: 07-27-2025 US for US OB 14+ weeks anatomy scan Imaging Routine Screening, , for anatomic survey Expected: 07/27/2024, Expires: 07/27/[address] [facility] Comment on above: Expected: 07/27/2024 , Expires: 07/27/2025 Start: 06-24-2024 Urine culture [facility] Start: 06-24-2024 End: 06-24-2025 ABO/Rh ABO/Rh Lab Routine Missed menses , unspecified gestational age Expected: 06/24/2024 (Approximate), Expires: 06/24/2025 [facility] Comment on above: Expected: 06/24/2024 (Approximate), Expires: 06/24/2025 Start: 06-24-2024 Bacteria identified in Urine by Culture [facility] Comment on above: Ordered: 06/24/2024 Start: 06-24-2024 End: 06-24-2025 Blood type and Indirect antibody screen panel - Blood Type and screen Lab Routine Missed menses , unspecified gestational age Expected: 06/24/2024 (Approximate), Expires: 06/24/2025 [facility] Work Phone: Comment on above: Expected: 06/24/2024 (Approximate), Expires: 06/24/2025 Start: 06-24-2024 End: 06-24-2025 Drugs of abuse panel - Urine by Screen method Rapid drug screen, urine Lab Routine , unspecified gestational age Encounter for supervision of normal first in first trimester Expected: 06/24/2024 (Approximate), Expires: 06/24/2025 [facility] Comment on above: Expected: 06/24/2024 (Approximate), Expires: 06/24/2025 Start: 02-15-2024 Influenza vaccination Influenza Vacc ine (#1) [facility] Start: 02-09-2024 End: 02-09-2024 Patient encounter procedure 02/09/2024 11:00 AM EDT Routine [facility] [address] [place] [phone] Willi Christiansen, DO [address] [place] [address] [place] [address] Arrived [facility] Comment on above: Arrived Start: 08-26-2023 End: 08-26-2023 Patient encounter procedure 08/26/2023 1:50 PM EDT Routine [facility] [address] [facility] [place] [phone] Willi Christiansen, DO [address] [place] [address] [place] [address] [facility] Start: 07-25-2023 End: 07-25-2024 ABO/Rh ABO/Rh Lab Routine Missed menses Expected: 07/25/2023 (Approximate), Expires: 07/25/2024 [facility] Comment on above: Expected: 07/25/2023 (Approximate), Expires: 07/25/2024 Start: 07-25-2023 End: 07-25-2024 Blood type and Indirect antibody screen panel - Blood Type and screen Lab Routine Missed menses Expected: 07/25/2023 (Approximate), Expires: 07/25/[address] [facility] Work Phone: Comment on above: Expected: 07/25/2023 (Approximate), Expires: 07/25/2024 Start: 07-25-2023 End: 07-25-2024 US Pelvis transvaginal US OB transvaginal Imaging Routine Missed menses Expected: 07/25/2023 (Approximate), Expires: 07/25/[address] [facility] Comment on above: Expected: 07/25/2023 (Approximate), Expires: 07/25/2024 Bacteria identified in Urine by Culture Urine culture Microbiology Routine Missed menses Ordered: 07/25/[address] [facility] Comment on above: Ordered: 07/25/2023 CBC W Auto Different ial panel - Blood CBC and differential Lab Routine Missed menses Ordered: 07/25/[address] [facility] Comment on above: Ordered: 07/25/2023 CBC W Auto Different ial panel - Blood CBC and differential Lab Routine Missed menses , unspecified gestational age Ordered: 06/24/[address] [facility] Comment on above: Ordered: 06/24/2024 CHLAMYDIA TRACHOMATI S (GENITO/STI) CHLAMYDIA TRACHOMATIS (GENITO/STI) Lab Routine STD exposure Ordered: 07/27/[address] [facility] Comment on above: Ordered: 07/27/2024 Hemoglobin A1c measurement Hemoglobin A1c Lab Routine Missed menses Ordered: 07/25/[address] [facility] Comment on above: Ordered: 07/25/2023 Hemoglobin A1c/Hemoglobin.total in Blood Hemoglobin A1c Lab Routine Missed menses , unspecified gestational age Ordered: 06/24/[address] [facility] Comment on above: Ordered: 06/24/2024 Hemoglobin A1c/Hemoglobin.total in Blood Hemoglobin A1c Lab Routine 30 weeks gestation of Third trimester Ordered: 11/03/[address] [facility] Work Phone: Comment on above: Ordered: 11/03/2024 Hepatitis B virus surface Ag [Presence] in Serum or Plasma by Immunoassay Hepatitis B surface antigen Lab Routine Missed menses Ordered: 07/25/[address] [facility] Comment on above: Ordered: 07/25/2023 Hepatitis B virus surface Ag [Presence] in Serum or Plasma by Immunoassay Hepatitis B surface antigen Lab Routine Missed menses , unspecified gestational age Ordered: 06/24/[address] [facility] Comment on above: Ordered: 06/24/2024 Hepatitis C virus Ab [Presence] in Serum or Plasma by Immunoassay Hepatitis C antibody Lab Routine Missed menses Ordered: 07/25/[address] [facility] Comment on above: Ordered: 07/25/2023 Hepatitis C virus Ab [Presence] in Serum or Plasma by Immunoassay Hepatitis C antibody Lab Routine Missed menses , unspecified gestational age Ordered: 06/24/[address] [facility] Comment on above: Ordered: 06/24/2024 HIV-1/HIV-2 antigen/antibody combination immunoassay HIV-1 and HIV-2 antibodies Lab Routine Missed menses Ordered: 07/25/[address] [facility] Comment on above: Ordered: 07/25/2023 HIV-1/HIV-2 antigen/antibody combination immunoassay HIV-1 and HIV-2 antibodies Lab Routine Missed menses , unspecified gestational age Ordered: 06/24/[address] [facility] Comment on above: Ordered: 06/24/2024 Neisseria gonorrhoea e DNA [Presence] in Unspecified specimen by JACEK with probe detection Neisseria gonorrhea DNA probe, direct Lab Routine STD exposure Ordered: 07/27/[address] [facility] Comment on above: Ordered: 07/27/2024 Reagin Ab [Presence] in Serum by RPR RPR Lab Routine Missed menses Ordered: 07/25/[address] [facility] Comment on above: Ordered: 07/25/2023 Reagin Ab [Presence] in Serum by RPR RPR Lab Routine Missed menses , unspecified gestational age Ordered: 06/24/[address] [facility] Comment on above: Ordered: 06/24/2024 Rubella antibody, IgG Rubella an tibody, IgG Lab Routine Missed menses Ordered: 07/25/[address] [facility] Comment on above: Ordered: 07/25/2023 Rubella antibody, IgG Rubella an tibody, IgG Lab Routine Missed menses , unspecified gestational age Ordered: 06/24/[address] [facility] Comment on above: Ordered: 06/24/2024 SURESWAB(R) ADVANCED VAGINITIS PLUS, TMA SURESWAB(R) ADVANCED VAGINITIS PLUS, TMA Pathology and Cytology Routine STD exposure Ordered: 07/27/2024 [facility] Healthcare Work Phone: Comment on above: Ordered: 07/27/2024 Payers Date Payer Category Payer Self-pay 2023 Medicaid [id number] 2022 Medicaid [id number] 2021 [facility] [id number] 2016 Unknown [id number] 2.1 [id number] 2004 Unknown [id number] 2.16.8 40.1.990558.3.579.2.1286 2004 Unknown [id number] 2.16.84 0.1.972295.3.579.2.9 2004 Unknown [id number] 2.16.84 0.1.560727.3.579.2.1259 2004 Unknown [id number] 2.16.84 0.1.212430.3.579.2.9 2004 Unknown [id number] 2.16.84 0.1.753898.3.579.2.9 2004 Unknown [id number] 2.16.84 0.1.112088.3.579.2.9 2004 Unknown [id number] 2.16.84 0.1.601495.3.579.2.9 2004 Unknown [id number] 2.16.84 0.1.415574.3.579.2.1259 2004 Unknown [id number] 2.16.84 0.1.871469.3.579.2.1258 2004 Unknown [id number] 2.16.84 0.1.665832.3.579.2.9 2004 Unknown [id number] 2.16.84 0.1.487407.3.579.2.1259 2004 Unknown [id number] 2.16.84 0.1.069116.3.579.2.1259 2004 Unknown [id number] 2.16.84 0.1.367740.3.579.2.1259 2004 Unknown [id number] 2.16.84 0.1.500678.3.579.2.1259 Unknown [facility] [id number] Unknown [id number] 2.16.8 40.1.492749.3.579.2.531 Social History Date Type Detail Facility Start: 06-24-2024 Sex Assigned At [employer] Other Tobacco smoking stat [facility] Tobacco smoking consumption unknown [facility] Start: 06-03-2023 [facility] Start: 2004 Sex Assigned At Female [facility] Start: 07-07-2023 Gender identity Identifies as female gender (finding) [facility] Start: 07-07-2023 Sexual orientation Heterosexual (finding) [facility] Start: 06-24-2024 Tobacco smoking status PRIS Ex-smoker [facility] History of tobacco use Current smoker [facility] History of tobacco use Cigarette Smoker [facility] Start: 06-24-2024 History of Social function [facility] Start: 05-13-2018 Tobacco smoking status PRIS Never smoked tobacco (finding) [facility] Start: 06-26-2024 Sex Female (finding) [facility] Clinical Notes 03-08-2021 to 11-03-2024 CARMELO Adam - 11/03/2024 9:00 AM Cony Regan LPN - 10/04/2024 3:00 PM Dave Crowell LPN - 07/27/2024 2:20 PM Lelo Escamilla LPN - 06/24/2024 2:00 PM EST Note Date & Type Note Facility 11-03-2024 History of Presen t illness Narrative Reason for Appointment: Patient ID: Shayla Martinez is a 18 y.o. female who presents [...] nursing note reviewed. Exam conducted with a pony edger present. Vitals: There is no height or [...] of: CARMELO Adam documented in this encounter [facility] 10-04-2024 History of Presen t illness Narrative Reason for Appointment: Patient ID: Shayla Martinez is a 18 y.o. female who presents for No chief complaint on file. Patient presents today for Return OB appointment. MEDICATIONS Current Outpatient Medications Medication Instructions nitrofurantoin (macrocrystal-monohydrate) (MACROBID) 100 mg, Oral, 2 times daily MV-Min-Fe Fum-FA-DHA ( 1 PO) 1 each, Daily Vit-Fe Fumarate-FA ( Vitamins) 28-0.8 MG tablet 1 tablet, Oral, Daily ALLERGIES Allergies Allergen Reactions Amoxicillin PROBLEMS Active Ambulatory Problems Diagnosis Date Noted [...] Exam Constitutional: Appearance: Normal appearance. She is well-developed. Cardiovascular: Rate and Rhythm: Normal rate and regular rhythm. Pulmonary: Effort: Pulmonary effort is normal. Breath sounds: Normal breath sounds. Abdominal: General: Bowel sounds are normal. There is no distension. Palpations: Abdomen is soft. Tenderness: There is no abdominal tenderness. There is no guarding or rebound. Musculoskeletal: General: No swelling. Normal range of motion. Right lower leg: No edema. Left lower leg: No edema. Neurological: Mental Status: She is alert and oriented to person, place, and time. Skin: General: Skin is warm and dry. Psychiatric: Mood and Affect: Mood normal. Behavior: Behavior normal. Vitals and nursing note reviewed. Exam conducted with a pony edger present. Vitals: There is no height or weight on file to calculate BMI. BP: 110/76 Patient's last menstrual period was 03/25/2024. ASSESSMENT & PLAN ICD-10-CM 1. 26 weeks gestation of Z3A.26 POCT urinalysis dipstick manually resulted US OB follow up transabdominal approach 2. Second trimester Z34.92 POCT urinalysis dipstick manually resulted US OB follow up transabdominal approach 3. Diabetes mellitus screening Z13.1 CBC Glucose tolerance, 1 hour CBC Glucose tolerance, 1 hour 4. UTI symptoms R39.9 nitrofurantoin, macrocrystal-monohydrate, (Macrobid) 100 MG capsule 5. SGA (small for gestational age) P05.10 US OB follow up transabdominal approach Patient presents today for a routine obstetrics appointment. Patient is currently 26w4d with a Estimated Date of Delivery: 01/06/25. Patient complaints of UTI symptoms. Macrobid will be sent to [facility] in [place]. Patient given orders to have CBC/1 hour gtt obtained prior to next scheduled appointment. Patient also given order to have growth scan done for possible SGA. Patient to return to clinic in 2-3 weeks. Documented by Swetha Regan LPN on behalf of: Dr. Willi Christiansen DO documented in this encounter [facility] 07-27-2024 History of Presen t illness Narrative Reason for Appointment: Patient ID: Shayla Martinez is a 18 y.o. female who presents for Routine Visit Patient presents today for STD Check. and Return OB appointment. MEDICATIONS Current Outpatient Medications Medication Instructions MV-Min-Fe Fum-FA-DHA ( 1 PO) 1 each, Daily Vit-Fe Fumarate-FA ( Vitamins) 28-0.8 MG tablet 1 tablet, Oral, Daily ALLERGIES Allergies Allergen Reactions Amoxicillin PROBLEMS Active Ambulatory Problems Diagnosis Date Noted No Active Ambulatory Problems Resolved Ambulatory Problems Diagnosis Date Noted No Resolved Ambulatory Problems No Additional Past Medical History HISTORY PAST MEDICAL HISTORY SOCIAL HISTORY No past medical history on file. Social History Tobacco Use Smoking status: Former [...] Exam Constitutional: Appearance: Normal appearance. She is well-developed. Genitourinary: Vulva normal. Cardiovascular: Rate and Rhythm: Normal rate and regular rhythm. Pulmonary: Effort: Pulmonary effort is normal. Breath sounds: Normal breath sounds. Abdominal: General: Bowel sounds are normal. There is no distension. Palpations: Abdomen is soft. Tenderness: There is no abdominal tenderness. There is no guarding or rebound. Musculoskeletal: General: No swelling. Normal range of motion. Right lower leg: No edema. Left lower leg: No edema. Neurological: Mental Status: She is alert and oriented to person, place, and time. Skin: General: Skin is warm and dry. Psychiatric: Mood and Affect: Mood normal. Behavior: Behavior normal. Vitals and nursing note reviewed. Exam conducted with a pony edger present. Vitals: There is no height or weight on file to calculate BMI. BP: 122/70 Patient's last menstrual period was 03/25/2024. ASSESSMENT & PLAN ICD-10-CM 1. 16 weeks gestation of Z3A.16 POCT urinalysis dipstick manually resulted 2. Second trimester Z34.92 3. Screening, , for anatomic survey Z36.89 Alpha fetoprotein, maternal US OB 14+ weeks anatomy scan Alpha fetoprotein, maternal 4. STD exposure Z20.2 SURESWAB(R) ADVANCED VAGINITIS PLUS, TMA CHLAMYDIA TRACHOMATIS (GENITO/STI) Neisseria gonorrhea DNA probe, direct Pt doing well with complaints of itching. Cultures obtained. Rx for tercanazole faxed to pharmacy. Pt to return in 4 weeks for scheduled OB appt. Documented by Radha Crowell LPN on behalf of: Willi Christiansen DO documented in this encounter [facility] 06-24-2024 History of Presen t illness Narrative Reason for Appointment: Patient ID: Shayla Martinez is a 18 y.o. female who presents for Amenorrhea Patient presents today for a Nurse OB Intake appointment. Patient is 12w0d with a Estimated Date of Delivery: 01/06/25 OB History Para Term AB Living 2 1 1 1 SAB IAB Ectopic Multiple Live Births 1 # Outcome Date GA Lbr Alonzo/2nd Weight Sex Type Anes PTL Lv 2 Current 1 Term 02/12/24 38w2d 6 lb 2 oz F Vag-Spont RENITA Current Medications: has a current medication list which includes the following prescription(s): mv-min-fe fum-fa-dha, ondansetron odt, and vitamins. Medical History: Active Ambulatory Problems Diagnosis Date Noted No Active Ambulatory Problems Resolved Ambulatory Problems Diagnosis Date Noted No Resolved Ambulatory Problems No Additional Past Medical History No family history on file. Social History Tobacco Use Smoking status: Former Types: Cigarettes Smokeless tobacco: Not on file Substance Use Topics Alcohol use: Not on file Drug use: Not on file Past Surgical History: Procedure Laterality Date TONSILLECTOMY adnoids WISDOM TOOTH EXTRACTION Allergies Allergen Reactions Amoxicillin Vitals: There is no height or weight on file to calculate BMI. BP: Patient's last menstrual period was 03/25/2024. Assessment/Plan Diagnoses and all orders for this visit: Missed menses - Type and screen; Future - ABO/Rh; Future - CBC and differential - Hemoglobin A1c - RPR - Rubella antibody, IgG - Hepatitis B surface antigen - Hepatitis C antibody - HIV-1 and HIV-2 antibodies - Urine culture - POCT , urine manually resulted - POCT urinalysis dipstick manually resulted - Vit-Fe Fumarate-FA ( Vitamins) 28-0.8 MG tablet; Take 1 tablet by mouth Daily , unspecified gestational age - Type and screen; Future - ABO/Rh; Future - CBC and differential - Hemoglobin A1c - RPR - Rubella antibody, IgG - Hepatitis B surface antigen - Hepatitis C antibody - HIV-1 and HIV-2 antibodies - Rapid drug screen, urine; Future - Vit-Fe Fumarate-FA ( Vitamins) 28-0.8 MG tablet; Take 1 tablet by mouth Daily Encounter for supervision of normal first in first trimester - Rapid drug screen, urine; Future - Vit-Fe Fumarate-FA ( Vitamins) 28-0.8 MG tablet; Take 1 tablet by mouth Daily Nausea - ondansetron ODT (Zofran-ODT) 4 MG disintegrating tablet; Take 1 tablet (4 mg) by mouth every 6 (six) hours if needed for nausea or vomiting Nurse Note: Return OB: Patient presents today for a routine obstetrics appointment. Patient is currently 12w0d . Patient states she is doing well but has complaints of being tired due to current . Patient has verbalizes frequent movement. labor precautions was discussed/given and patient was instructed to perform kick counts three times a day. Orders Placed This Encounter Procedures Urine culture Type and screen ABO/Rh CBC and differential Hemoglobin A1c RPR Rubella antibody, IgG Hepatitis B surface antigen Hepatitis C antibody HIV-1 and HIV-2 antibodies Rapid drug screen, urine POCT , urine manually resulted POCT urinalysis dipstick manually resulted Follow Up: Patient is to return to office in 1 week for routine OB appointment. Follow Up: Patient is to have labs drawn at directed and return to office for initial OB appointment with provider. Patient may call office as needed with any concerns or questions. Nurse Visit Completed by: Roseanna sEcamilla LPN documented in this encounter [facility] 05-18-2024 Note [id number] [facility] 05-17-2024 Note Patient Education Materials Foll ows: [facility] 02-09-2024 History of Presen t illness Narrative Reason for Appointment: Patient ID: Shayla Martinez is a 18 y.o. female who presents for Routine Visit Patient presents today for Return OB appointment. MEDICATIONS Current Outpatient Medications Medication Instructions MV-Min-Fe Fum-FA-DHA ( 1 PO) 1 each, Oral, Daily ALLERGIES Allergies Allergen Reactions Amoxicillin PROBLEMS Active Ambulatory Problems Diagnosis Date Noted No Active Ambulatory Problems Resolved Ambulatory Problems Diagnosis Date Noted No Resolved Ambulatory Problems No Additional Past Medical History HISTORY PAST MEDICAL HISTORY SOCIAL HISTORY History reviewed. No pertinent past medical history. Social History Tobacco Use Smoking status: Not on file Smokeless tobacco: Not on file Substance Use Topics Alcohol use: Not on file Drug use: Not on file FAMILY HISTORY No family history on file. SURGICAL HISTORY Past Surgical History: Procedure Laterality Date TONSILLECTOMY adnoids WISDOM TOOTH EXTRACTION REVIEW OF SYSTEMS Review of Systems: Review of Systems All other systems reviewed and are negative. OBJECTIVE Objective: Physical Exam Constitutional: Appearance: Normal appearance. She is well-developed. Genitourinary: Vulva normal. Cardiovascular: Rate and Rhythm: Normal rate and regular rhythm. Pulmonary: Effort: Pulmonary effort is normal. Breath sounds: Normal breath sounds. Abdominal: General: Bowel sounds are normal. There is no distension. Palpations: Abdomen is soft. Tenderness: There is no abdominal tenderness. There is no guarding or rebound. Musculoskeletal: General: No swelling. Normal range of motion. Right lower leg: No edema. Left lower leg: No edema. Neurological: Mental Status: She is alert and oriented to person, place, and time. Skin: General: Skin is warm and dry. Psychiatric: Mood and Affect: Mood normal. Behavior: Behavior normal. Vitals and nursing note reviewed. Exam conducted with a pony edger present. Vitals: There is no height or weight on file to calculate BMI. BP: 120/80 Patient's last menstrual period was 05/20/2023. ASSESSMENT & PLAN ICD-10-CM 1. 37 weeks gestation of Z3A.37 POCT urinalysis dipstick manually resulted Patient presents today for a routine obstetrics appointment. Patient is currently 37w6d with a Estimated Date of Delivery: 02/24/24. Patient to return to clinic in 1 week for return OB appointment. Documented by Swetha Regan LPN on behalf of: Willi Christiansen DO documented in this encounter [facility] 07-25-2023 History of Presen t illness Narrative [...] or undercooked meat, and stay away from [facility]. Patient has also been advised to [...] Jacquelyn Steel MA documented in this encounter [facility] 04-16-2022 Evaluation note Encounter Date Diagnosis Assessment [...] has not followed up in 2 years. 01 Nov, 2022 Rib pain on left side (ICD-10 - [...] understanding and agrees to plan of care. [employer] Other 11-23-2021 Evaluation note* Encounter Date Diagnosis Assessment Notes Treatment Notes Treatment Clinical Notes Apr, Cough (ICD-10 - R05.9) Reviewed that COVID test is negative. Discussed due to exmination would recommend a chest x-ray to rule out pneumonia. Mother is agreeable. X-ray completed in office today. Will call with results and further recommendations. Mother and pt verbalize understanding and are agreeable to plan of care. X-ray results callledto patient mother and no peumonia noted. Discussed treat as viral bronchitis. Will send albuterol inhaler o use as needed for cough and wheezing. Mother is to call and if symptoms are prolonged will consider antibiotics. Call for any worseningg. Mother is agreeable----see telephone encounter Apr, Wheezing (ICD-10 - R06.2) see telephone encounter, discussed with mother that no pneumonia, would recommend inhaler and call if symptoms are worse. Apr, Sore throat (ICD-10 - J02.9) Strep throat is negative today. Discussed diagnosis with patient today. Most likely viral in nature related to the cough and PND. Will treat symptomatically. Increase fluids/rest. Ibuprofen PRN sore throat. Warm [...] ER evaluation regarding dehydration reviewed including uncontrolled stools/vomiting, dry/cracked mouth/lips, not urinating at least every 4 hours, etc. Antiemeticsw/ sedation warning. Strict hygiene to prevent further transmission. Work note given. F/U if sx persist > 7 days, may need stool studies. Apr, Nausea (ICD-10 - R11.0) [employer] Other 09-23-2021 Evaluation note* Encounter Date Diagnosis Assessment Notes Treatment Notes Treatment Clinical Notes Feb, Abscess of left thigh (ICD-10 - L02.416) Take antibiotic as directed, and complete full course even if symptoms are no longer present. Take ibuprofen/Tylenol as needed for pain and discomfort. Encouraged [...] verbalized understanding and agreement with treatment plan. [employer] Other evaluation noteNo InformationNort Who@ Other evaluation note* Diagnosis Missed menses documented in this encounter [facility] HealthcareEvaluation note* Diagnosis 37 weeks gestation of documented in this encounter [facility] HealthcareEvaluation note* Diagnosis Missed menses , unspecified gestational age Encounter for supervision of normal first in first trimester Nausea Nausea alone documented in this encounter [facility] HealthcareEvaluation noteNo assessment information availableOur [facility] Of [facility] Work Phone: [employer] note* Diagnosis 16 weeks gestation of Second trimester state, incidental Screening, , for anatomic survey Encounter for anatomic survey STD exposure Yeast infection documented in this encounter [facility] HealthcareEvaluation note* Diagnosis 26 weeks gestation of Second trimester state, incidental Diabetes mellitus screening Screening for diabetes mellitus UTI symptoms SGA (small for gestational age) Gipne-ehg-damdg without mention of malnutrition, unspecified (weight) documented in this encounter [facility] HealthcareEvaluation note* Diagnosis 30 weeks gestation of Third trimester state, incidental SGA (small for gestational age) Fdinu-jau-wuhxr without mention of malnutrition, unspecified (weight) Antepartum anemia Constipation, unspecified constipation type [facility] N[facility]ative - Reported* Type Description Date Medical History APNEA Surgical History tonsilectomy and adenoidectomy [employer] Other Summary Purpose Family History No Family History Records FoundNo Family History Records FoundNo Family History Records FoundNo Family History Records Found Advance Directives Advance Directive Response Recorded Date/ Time Advance Directives No November 08 0 5:24am Additional Source Comments REASON FOR VISIT (unrecogniz ed section and content) Reason Comments Initial Visit Reason Comments Routine Visit Reason Comments Amenorrhea INFORMATION SOURCE (unrecogn ized section and content) DATE CREATED AUTHOR 07/20/2023 [facility] DATE CREATED AUTHOR AUTHOR'S ORGANIZ ATION 05/18/2024 [facility] DATE CREATED AUTHOR AUTHOR'S ORGANIZ ATION 06/30/2024 [facility] DATE CREATED AUTHOR AUTHOR'S ORGANIZ ATION 10/05/2024 [facility] [employer] Care Teams (unrecognized sec tion and content) Team Status: Inactive Member Role Status Dates Willi Christiansen DO Attending Provider Active Start : June 24, 2024 End: June 24, 2024 Goals (unrecognized section and content) Goals may be documented in a n alternate section FOR RECORDS PERTAINING TO PATIENTS WHO ARE [...] BE BASED ON THE PRIMARY CLINICAL RECORDS. [employer] provides no warranty or guarantee of the accuracy or completeness of information in this document.
[2024-11-03 17:09] LABS: Basophils Percent Auto 0.3 % (0.2-2.0); Eosinophils Absolute Auto 0.1 10^3/uL (0.0-0.7); Eosinophils Percent Auto 0.6 % (0.9-7.0); Hematocrit 31.5 % (36.0-48.0); Immature Granulocytes Abs Auto 0.06 10^3/uL (0.00-0.03); Immature Granulocytes Pct Auto 0.6 % (0.0-0.5); Lymphocytes Absolute Auto 2.2 10^3/uL (1.2-3.8); Lymphocytes Percent Auto 21.1 % (20.5-60.0); Mean Corpuscular HGB Conc 31.7 g/dL (29.9-35.2); Mean Corpuscular Hemoglobin 26.2 pg (26.7-34.0); Mean Corpuscular Volume 82.7 fL (81.0-99.0); Mean Platelet Volume 10.7 fL (9.5-13.5); Monocytes Absolute Auto 0.8 10^3/uL (0.3-0.8); Monocytes Percent Auto 7.6 % (1.7-12.0); Neutrophils Absolute Auto 7.4 10^3/uL (1.4-6.5); Neutrophils Percent Auto 69.8 % (43.0-75.0); Platelet Count 295 10^3/uL (150-450); Red Blood Count 3.81 10^6/uL (4.20-5.40); Red Cell Distribution Width 14.7 % (11.0-15.0); White Blood Count 10.5 10^3/uL (4.0-11.0)
[2024-11-03 17:55] LABS: Estimated Average Glucose 114 mg/dL; Glycohemoglobin A1C 5.6 % (4.5-6.2)
[2024-11-05 05:07] LABS: Transferrin 470 mg/dL (192-364)
== END 2024-11-03 15:53 | disposition home or self-care (01) ==
PROVIDERS: Visit Provider Physician Assistant
DX: O99.013 Anemia complicating pregnancy, third trimester (principal); Z3A.30 30 weeks gestation of pregnancy; Z13.1 Encounter for screening for diabetes mellitus; O26.843 Uterine size-date discrepancy, third trimester
CPT/HCPCS: 36415; 76816; 82728; 83036; 84466; 85025

== ENCOUNTER 2024-11-05 12:09 | Observation (INO) | payer MEDICAID, SELFPAY ==
--- OUTSIDE RECORDS SUMMARY | 2024-11-03 09:00 | XMS_ITS | Encounter Summary ---
Author Organization [facility] Address [address] [place] [address] Care Team Providers Care Waste Salvager Name Role Phone Unavailable Primary Care Provider Unavailabl e Reason for Visit * Reason Comments Routine Visit Encounter Details Date Type Department Care Team (Latest Contact Info) Description 11/03/2024 9:00 AM EDT Routine [facility] [address] [id number] Kristina Echavarria PA [address] [place] [address] 30 weeks gestation of ; Third trimester ; SGA (small for gestational age); Antepartum anemia; Constipation, unspecified constipation type Social History Tobacco Use Types Packs/Day Years Used Date Smoking Tobacco: Former Cigarettes Estimated Date of Delivery Comme nts Yes 01/06/2025 Based on Ultraso und, [id number] Sex and Gender Information Value Date Recorded Sex Assigned at Female 07/07/2023 3:39 PM EST Legal Sex Female 7:30 PM EDT Gender Identity Female 07/07/2023 3:39 PM EST Sexual Orientation Straight 07/07/2023 3: 39 PM EST documented as of this encounter Last Filed Vital Signs Vital Sign Reading Time Taken Comments Blood Pressure 120/80 11/03/2024 9:21 AM EDT Pulse - - Temperature - - Respiratory Rate - - Oxygen Saturation - - Inhaled Oxygen Concentration - - Weight 105 kg (231 lb 12.8 oz) 11/03/2024 9:21 A M EDT Height - - Body Mass Index - - documented in this encounter Progress Notes * CARMELO Adam - 11/03/2024 9:00 AM EDT Reason for Appointment: Patient ID: Shayla Corado is a 18 y.o. female who presents for Routine Visit Patient presents today for Return OB appointment. MEDICATIONS Current Outpatient Medications Medication Instructions MV-Min-Fe Fum-FA-DHA ( 1 PO) 1 each, Daily ALLERGIES No Active Allergies PROBLEMS Active Ambulatory Problems Diagnosis Date Noted No Active Ambulatory Problems Resolved Ambulatory Problems Diagnosis Date Noted No Resolved Ambulatory Problems No Additional Past Medical History HISTORY PAST MEDICAL HISTORY SOCIAL HISTORY History reviewed. No pertinent past medical history. Social History Tobacco Use Smoking status: Former Types: Cigarettes Smokeless tobacco: Not on file Substance Use Topics Alcohol use: Not on file Drug use: Not on file FAMILY HISTORY No family history on file. SURGICAL HISTORY Past Surgical History: Procedure Laterality Date TONSILLECTOMY adnoids WISDOM TOOTH EXTRACTION REVIEW OF SYSTEMS Review of Systems: Review of Systems Constitutional: Negative. HENT: Negative. Eyes: Negative. Respiratory: Negative. Cardiovascular: Negative. Gastrointestinal: Negative. Genitourinary: Negative. Musculoskeletal: Negative. Skin: Negative. Neurological: Negative. All other systems reviewed and are negative. Hematological: Negative. Endocrine: Negative. Allergic/Immunologic: Negative. OBJECTIVE Objective: Physical Exam Constitutional: Appearance: Normal appearance. She is well-developed and normal weight. HENT: Head: Normocephalic. Cardiovascular: Rate and Rhythm: Normal rate and regular rhythm. Pulses: Normal pulses. Pulmonary: Effort: Pulmonary effort is normal. Breath sounds: Normal breath sounds. Abdominal: General: Bowel sounds are normal. There is no distension. Palpations: Abdomen is soft. Tenderness: There is no abdominal tenderness. There is no guarding or rebound. Musculoskeletal: General: No swelling. Normal range of motion. Right lower leg: No edema. Left lower leg: No edema. Neurological: General: No focal deficit present. Mental Status: She is alert and oriented to person, place, and time. Skin: General: Skin is warm and dry. Psychiatric: Mood and Affect: Mood normal. Behavior: Behavior normal. Thought Content: Thought content normal. Judgment: Judgment normal. Vitals and nursing note reviewed. Exam conducted with a patch finisher present. Vitals: There is no height or weight on file to calculate BMI. BP: 120/80 Patient's last menstrual period was 03/25/2024. ASSESSMENT & PLAN ICD-10-CM 1. 30 weeks gestation of Z3A.30 POCT urinalysis dipstick manually resulted Hemoglobin A1c 2. Third trimester Z34.93 POCT urinalysis dipstick manually resulted Hemoglobin A1c Return OB: Patient presents today for a routine obstetrics appointment. Patient is currently 30w6d . Patient states she is doing well but has complaints of being tired due to current . Patient has verbalizes frequent movement. labor precautions was discussed/given and patient was instructed to perform kick counts three times a day. Patient does have concerns with dizziness, feeling faint, feeling some back pain shooting down legs. Patient had orthostatic pressure down laying down 120/70 and standing 110/70. We will order labs for her to have drawn today as patient does appear pale. Patient states history of anemia we will send in pro fe for her to start as well as colace. Ferritin blood work ordered as well Orders Placed This Encounter Procedures Hemoglobin A1c POCT urinalysis dipstick manually resulted Follow Up: Patient is to return to office in 2 week for routine OB appointment. Documented by Roseanna Escamilla LPN on behalf of: CARMELO Adam documented in this encounter Plan of Treatment Upcoming Encounters Date Type Department Care Team (Late st Contact Info) Description 11/17/2024 1:00 PM EDT Routine [facility] [address] [place] [id number] Nelson Christiansen, DO [address] [place] [address] Scheduled Orders Name Type Priority Associated Diagnoses Orde r Schedule Hemoglobin A1c Lab Routine 30 weeks gestation of Third trimester Ordered: 11/03/2024 Ferritin Lab Routine Antepartum anemia Expected: 11/03/2024 (Approximate), Expires: 11/03/2025 Transferrin Lab Routine Antepartum anemia Expected: 11/03/2024, Expires: 11/03/2025 documented as of this encounter Procedures Procedure Name Priority Date/Time Associated Diagnosis Comments POCT URINALYSIS DIPSTICK Routine 11/03/2024 9:32 AM EDT 30 weeks gestation of Third trimester documented in this encounter Results * (ABNORMAL) POCT urinalysis dipstick manually resulted (11/03/2024 9:32 AM EDT) Color, UA Yellow Clarity, UA Clear Glucose, UA Negative Negative - 2000(110) ++++ mg/dL Bilirubin, UA Negative Negative - 4(70) +++ mg/dL Ketones, UA Negative Negative - 160(16) ++++ mg/dL Spec Grav, UA 1.020 1 - 1.03 Blood, UA Positive Negative - 50 Onur/mcL Comment:trace-intact pH, UA 7.5 5 - 9 Protein, UA Negative Negative - 2000(20) ++++ mg/dL Urobilinogen, UA 0.2 0.2 - 12 mg/dL Leukocytes, UA Positive Negative - 500+++ Todd/mcL Comment:small Nitrite, UA Negative Negative - Positive Urine 11/03/2024 9:32 AM EDT Kristina RHODES POINT OF CARE TEST ENTER/EDIT OR DERABLES Final Result documented in this encounter Visit Diagnoses Diagnosis 30 weeks gestation of Third trimester state, incidental SGA (small for gestational age) [id number] without mention of malnutrition, unspecified (weight) Antepartum anemia Constipation, unspecified constipation type documented in this encounter
--- OUTSIDE RECORDS SUMMARY | 2024-11-03 09:10 | XMS_ITS ---
Author Name Auto Generated Organization OHIP Support Name Relationship Address Phone SACHIN GARNER Next of Kin Unknown [phone] SACHIN GARNER Next of Kin Unknown [phone] JANETH CARRANZA Next of Kin [address] [facility] [place] [address] + SACHIN GARNER Next of Kin Unknown [phone] JANETH CARRANZA Next of Kin [address] [facility] [address] [place] [address] + SACHIN GARNER Next of Kin Unknown [phone] JANETH CARRANZA Next of Kin [address] [facility] [address] [place] [address] + SACHIN GARNER Next of Kin Unknown [phone] Wayne Martinez Next of Kin [address] [place] [address] + Elzbieta Garnerhel Next of Kin [address] [place] [address] + JANETH CARRANZA Next of Kin [address] [facility] [address] [place] [address] + SACHIN GARNER Next of Kin Unknown [phone] JANETH CARRANZA Next of Kin [address] [facility] [address] [place] [address] + SACHIN GARNER Next of Kin Unknown [phone] ELZBIETA GARNERHEL Next of Kin [address] [place] [address] + ARASELI SACHIN Next of Kin [address] [facility] [place] [address] + ADONAY GARNER Next of Kin [address] [facility] [place] [address] + ADONAY GARNER Next of Kin [address] [facility] [address] + JANETH CARRANZA Next of Kin [address] [place] [address] + SACHIN GARNER Next of Kin Unknown [phone] JANETH CARRANZA Next of Kin [address] [place] [address] + SACHIN GARNER Next of Kin Unknown [phone] SACHIN GARNER Next of Kin Unknown [phone] SACHIN GARNER Next of Kin Unknown [phone] SACHNI GARNER Next of Kin Unknown [phone] Care Team Providers Care Steam Shovel Runner Name Role Phone ЕЛЕНА, WILLI Attending Unavailable ЕЛЕНА, WILLI Referring Unavailable ЕЛЕНА, WILLI Attending Unavailable KENNY, EDGAR Attending Unavailable KENNY, EDGAR Attending Unavailable KENNY, EDGAR Attending Unavailable ЕЛЕНА, WILLI Attending Unavailable KENNY, EDGAR Attending Unavailable ЕЛЕНА, WILLI Attending Unavailable ЕЛЕНА, WILLI Attending Unavailable ЕЛЕНА, WILLI Referring Unavailable Елена, Willi Attending Unavailable Елена, Willi Admitting Unavailable PARESH IRBY Attending Unavailable PARESH IRBY Admitting Unavailable Provider, None Primary Care Unavailable PROBLEMS No Problem Records Found PROCEDURES No Procedure Records Found RESULTS US OB 14+ WEEKS ANATOMY SCAN Observed: 0 08/24/2024 1:34 PM Status: F Source: [facility] EPIC Order Comment: US OB ANATOMY SINGLE W US OB CERVICAL LENGTH Estimated Date of Delivery: 01/06/25 Gestational Age as of 07/27/2024: 16w5d EXAM: US OB 14+ WEEKS ANATOM Y SCAN HISTORY: anatomy. COMPARISON: OB ultrasound 06/24/2024. TECHNIQUE: Two-dimensional transabdominal grayscale ultrasound imaging of the pelvis was performed. FINDINGS: Gestation: Single Presentation: Cephalic Cardiac Activity: 140 beats per minute Placental Location: Anterior with marginal previa Cervical Length: 5.1 cm Amniotic Fluid: Appears adequate MEASUREMENTS: BPD: 5.0 cm EGA: 21 weeks 1 days HC: 18.5 cm EGA: 20 weeks 6 days AC: 15.5 cm EGA: 20 weeks 5 days FL: 3.5 cm EGA: 21 weeks 0 days HC/AC Ratio: 1.19 The gestational age by today's ultrasound is 21 weeks 0 days (+/- 10 days gestation). Estimated Weight: 381 grams, +/- 57 grams ( 0 lb 13 oz). Weight Percentile for gestational age: 52 % ANATOMY C-Spine: Limited T-Spine: Limited L-Spine: Limited Sacrum: Limited Four Chamber Heart: Unremarkable LVOT: Unremarkable RVOT: Unremarkable Stomach: Unremarkable Kidneys: Unremarkable Bladder: Unremarkable Diaphragm: Unremarkable Cord insertion: Unremarkable Cord vessels: Three Lateral Ventricles: Unremarkable Cerebellum: Unremarkable Cisterna Magna: Unremarkable Posterior Fossa: Unremarkable Right Femur: Unremarkable Left Femur: Unremarkable Right Tib/Fib: Unremarkable Left Tib/Fib: Unremarkable Right Rad/Ulnar: Unremarkable Left Rad/Ulnar: Unremarkable Right Humerus: Unremarkable Left Humerus: Unremarkable Nose/Lips: Unremarkable Orbits: Unremarkable IMPRESSION: 1. Single, live intrauterine gestation 20 weeks, 5 days by LMP. Today's ultrasound measurements correlate with a gestational age of 21 weeks 0 days. Estimated weight is 381 grams, +/- 57 grams ( 0 lb 13 oz) which correlates to 52 %. CHENTE is 01/04/2025. 2. Unremarkable anatomy with limited visualization of the spine. A short- term follow-up ultrasound is recommended to further evaluate the spine, as well as monitor placental previa. 3. Marginal placental previa. Electronically Signed:Electronically signed by KATEY SPIVEY II, MD, PHD at 25-Aug-2024 08:37:46 AM [employer] URINE CULTURE Observed: 06/24/2024 3:56 PM Status: F Source: [facility] 75,000 colonies/ml mixed bacterial skin contaminants 2 Days PERFORMED BY: [place] [address] PATHOLOGIST REIMBURSEMENT LIAISON FABBY ROSSI M.D. Performed By: #### CUU #### [address] OB < 14 WEEKS EARLY Observed: 025 1:53 PM Status: F Source: [facility] EPIC Order Comment: US OB < 14 We eks (Abdominal ONLY) No LMP recorded. TITLE OF EXAM: OB Ultrasound : REASON FOR EXAM: Dating COMPARISON: None TECHNIQUE: Grayscale and M-mode Doppler imaging is performed. FINDINGS: Measurements: heart rate: 154 bpm Sac: 4.0 cm CRL: 5.4 cm GA for sonogram: 12.0 wk (11.1-13.0) CHENTE: 01/06/2025 Maternal Anatomy: Cervix Length: 4.0 cm Ovaries: LxHxW (cm) Vol (cc) Right: 2.3 x 2.2 x 2.1 5.6 Left: 4.5 x 3.8 x 2.3 20.6 Anatomy Observed: Gestational Sac: Visualized Yolk Sac: Visualized Pole: Visualized Cardiac Activity: Visualized 154 bpm Uterus: Normal Uterine Position: Anteverted, Anteflexed Right Ovary: 2.3 x 2.2 x 2.1 cm Volume: 5.6 cc Normal Left Ovary: 4.5 x 2.3 x 3.9 cm Volume: 21.4 cc Normal Cervical Length: 4.0 cm Closed IMPRESSION: Single live intrauterine gestation with sonographic EGA 12.0 weeks. This is concordant with the provided clinical dates. Dictated and transcribed 06/25/24/dpd This report has been electronically signed and approved by the interpreting radiologist. [employer] Collected: 05/17/2024 2:12 PM Stat us: F Source: [facility] TYPE CODE TESTS RESULT OUT OF RANGE REFERENCE UNITS LAB [id number]([facility] ) Drug Screen Complete Collected Performed By: #### [id number] #### [facility] (DEFAULT) [address] [place] [address] PATIENT HANDOUT Observed: 05/17/2024 2:08 PM Status: C Source: [facility] Patient Education Materials Follows: ED PATIENT SUMMARY Observed: 05/17/2024 2:08 PM Status: F Source: [facility] ? Urgent C are [address] [place], [place] [id number] PATIENT DISCHARGE INSTRUCTIONS Patient Information Name: KALYN MARTINEZ Age: 18 Years Date of : 2005 [facility]: [id number] Reason For Visit: Medical screening exam; [facility] Arrival Time: 05/17/2024 13:06:33 Primary Care Physician: Provider, None Attending Physician: PARESH IRBY Comment: Patient Education With: Address: When: Your primary provider in your hometown , only if needed Medication Information: The exam and treatment you received today in the [facility] were for an urgent problem and are not intended as complete care. It is important for you to follow up with a doctor, nurse practitioner, or physician?s junior sales assistant for ongoing care. If your symptoms [...] so we can reach you if necessary. [facility] has provided you with a complete list of medications post discharge. Please inform your all source intelligence technician/provider of your visit and for further instruction on these medications. Any specific questions regarding your chronic medications and dosages should be discussed with your primary care physician(s) and/or pharmacist. Visit Information Visit Diagnosis: Diagnoses This Visit Medical screening exam ([id number]) Physical exam (Z00.00) If you received any narcotics, sedation, or [...] business decisions or sign any legal documents Reason for Visit: pt is here for pre-employment physical. Allergies: Substance Reaction Symptoms Type Comments No known allergies Drug Vital Signs: Vitals and Measurements this Visit (last charted value for your 05/17/2024 visit) Vital Signs This Visit Temperature Oral: 36.7 DegC Peripheral Pulse Rate: 85 bpm Respiratory Rate: 16 br/min Systolic Blood Pressure: 115 mmHg Diastolic Blood Pressure: 81 mmHg SpO2: 100 % Oxygen Therapy: Room air Blood Pressure Method: Automatic Measurements This Visit Height/Length Measured: 171 cm Weight Measured: 96.98 kg Weight Dosin.980 kg Body Mass Index: 33.17 kg/m2 BSA Measured: 2.15 m2 Body Mass Index Percentile: 96.35 Height/Length Percentile: 88.34 Weight Percentile: 98.35 Problems List: Problem Onset Comments No Problems found Major Tests and Procedures: The following procedures and tests were performed during your ED visit. Laboratory Radiology Cardiology Viruses or Bacteria What?s got you sick? [...] for Disease Control and Prevention February 2014 ED CLINICAL SUMMARY Observed: 05/17/2024 2:08 PM Status: F Source: [facility] ? Urgent C are [address] [id number] Clinical Summary PERSON INFORMATION Name: KALYN MARTINEZ Age: 18 Years Sex: FEMALE : 2005 MRN: Acct#: Visit Reason: Medical screening exam; [facility] Ar[facility]: 05/17/2024 13:06:33 Discharge: 05/17/2024 14:08:00 LOS: 000 01:02 Check In: 05/17/2024 13:06:33 Checkout: 05/17/2024 14:08:00 Address: [address] [place] [address] PCP: Provider, None PROVIDER INFORMATION Provider Role Assigned Unassigned PARESH IRBY ED PA 05/17/2024 13:11:37 Sivan Corcoran LPN ED Nurse 05/17/2024 13:31:33 VITALS INFORMATION Vital Sign Triage Latest Temperature Tympanic Temperature Temporal Artery Pulse Rate O2 Sat 100 % 100 % Respiratory Rate Blood Pressure /81 mmHg /81 mmHg MEDICAL INFORMATION Medications Given: Allergy Information: No known allergies PHYSICIAN DOCUMENTATION DISCHARGE INFORMATION: Discharge Disposition: Home Discharge Location: Home PATIENT EDUCATION INFORMATION Instructions: Follow-Up: With: Address: When: Your primary provider in your hometown , only if needed DIAGNOSIS: Physical exam Patient Understands: Yes - Patient/family/caregiver verbalizes understanding of instructions given Comment: URGENT CARE RECORD Observed: 05/17/2024 2:03 PM Status: C Source: [facility] ? Urgent C are [address] [place], [place] [id number] PATIENT DISCHARGE INSTRUCTIONS Patient Information Name: KALYN MARTINEZ Age: 18 Years Date of : 2005 Reason For Visit: Medical screening exam; [facility] Arrival Time: 05/17/2024 13:06:33 Primary Care Physician: Provider, None Attending Physician: PARESH IRBY Comment: Visit Diagnosis: Diagnoses This Visit Medical screening exam ([id number]) Physical exam (Z00.00) If you received any narcotics, sedation, or [...] sign any legal documents With: Address: When: Your primary provider in your hometown , only if needed Medication Information: The exam and treatment you received today in the [facility] were for an urgent problem and are not intended as complete care. It is important for you to follow up with a doctor, nurse practitioner, or physician?s junior sales assistant for ongoing care. If your symptoms become worse or you do not improve as expected and you are unable to reach your usual health care provider, you should return to the Emergency Department, we are available 24 hours a day. For those patients who have received Radiology results, the interpretation of your X-ray as given to you by our Urgent Care physician is only a preliminary report. The Radiologist will review your films and if there is a change in the diagnosis you will be notified by phone. Please make sure you have provided a working phone number so we can reach you if necessary. In the event that you had a lab culture while you were a patient in the Urgent Care, you will be notified by phone if there is a need to change your antibiotic. Please make sure you have provided a working phone number so we can reach you if necessary. [facility] has provided you with a complete list of medications post discharge. Please inform your all source intelligence technician/provider of your visit and for further instruction on these medications. Any specific questions regarding your chronic medications and dosages should be discussed with your primary care physician(s) and/or pharmacist. Visit Information Allergies: Substance Reaction Symptoms Type Comments No known allergies Drug Vital Signs: Vitals and Measurements this Visit (last charted value for your 05/17/2024 visit) Vital Signs This Visit Temperature Oral: 36.7 DegC Peripheral Pulse Rate: 85 bpm Respiratory Rate: 16 br/min Systolic Blood Pressure: 115 mmHg Diastolic Blood Pressure: 81 mmHg SpO2: 100 % Oxygen Therapy: Room air Blood Pressure Method: Automatic Measurements This Visit Height/Length Measured: 171 cm Weight Measured: 96.98 kg Weight Dosin.980 kg Body Mass Index: 33.17 kg/m2 BSA Measured: 2.15 m2 Body Mass Index Percentile: 96.35 Height/Length Percentile: 88.34 Weight Percentile: 98.35 Problems List: Problem Onset Comments No Problems found Patient Education Viruses or Bacteria What?s got you sick? [...] for Disease Control and Prevention February 2014 URGENT CARE NOTE- PROVIDER Observed: 07/2023 1:21 PM Status: F Source: [facility] Patient: KALYN MARTINEZ Age: 18 years Sex: FEMALE : 2005 Associated Diagnoses: Physical exam Author: PARESH IRBY Subjective Patient presents for preemployment physical. Denies any medical issues or taking any medications. Health Status Allergies: Allergic Reactions (Selected) No known allergies Objective CONST: -Well-developed well-nourished. -Acute distress: No -Vitals: reviewed. SKIN: -Gross abnormalities: No EYES: -EOM intact, MALLY: -Sclera conjunctiva: Unremarkable. ENT: - Pharynx pink and moist. NECK: -Supple ([id number]-nc-plzzj): non-tender. CARD: -Rate and rhythm: Regular -Edema: No -Calf pain: No RESP: -Respiratory effort and chest excursion with respirations: Normal -Breath sounds equal bilaterally: Clear -Wheezes: No -Rales: No BACK: -Signs of pain with movement: No ABD: -Distended: No -Deep palpation: Non-tender EXT: Gross appearance and use of all four extremities: Unremarkable NEURO: -Patient: alert -Oriented to: person, place and time. -Appearance and judgment: appropriate. Impression and Plan Assessment and Plan: Diagnosis: Physical exam (HLM33-PR Z00.00). Cleared for employment [Electronically Signed on: 05/17/2024 14:05 EST] PARESH IRBY[Verified on: 05/17/2024 14:05 EST] PARESH IRBY LAB - TOXICOLOGY RESULTS Observed: 05/17 1:06 PM Status: F Source: [place] [id number]#1.00OTGTIFF HISTORY AND PHYSICAL Observed: 1:06 PM Status: P Source: [place] [id number]#1.00OTGTIFF CONSENT FORMS Observed: 05/17/2024 1:06 PM Status: P Source: [place] [id number]#1.00OTGTIFF ALLERGIES DATE TYPE / CODE NAME / CODE REACTION SEVERITY SOURCE Drug/[id number](SNOMED CT) No known allergies [facility] ENCOUNTERS ADMIT/DISCHARGE ACCOUNT NUMBER ADMITTING ENCOUNTER CLASS LOCATION SOURCE 11/03/2024/11/04/19 [id number] Ambulatory Building:[facility] 10/04/2024/10/05/19 [id number] Ambulatory Building:[facility] 08/24/2024/08/25/19 [id number] Ambulatory Building:[facility] 08/24/2024/08/25/19 [id number] Ambulatory Building:[facility] 07/27/2024/07/27/19 [id number] Ambulatory Building:[facility] 06/24/2024/06/24/19 [id number] Willi Christiansen [facility] 06/24/2024/06/24/19 [id number] Ambulatory Building:[facility] 06/24/2024/06/24/19 [id number] Ambulatory Building:[facility] 05/17/2024/05/17/20 [id number] PARESH IRBY [facility] CAR[facility]oom: UCBed: 5 [facility] 02/09/2024/02/09/20 24 [id number] Ambulatory Building:[facility] 01/26/2024/01/26/20 24 [id number] Ambulatory Building:[facility] 01/06/2024/01/06/20 24 [id number] Ambulatory Building:[facility] 12/23/2023/12/23/19 24 [id number] Ambulatory Building:[facility] 11/19/2023/11/19/19 24 [id number] Ambulatory Building:[facility] OB [facility] PAYERS ENCOUNTER GUARANTOR PAYER SUBSCRIBER SOURCE 11/03/2024 [facility] ANGELIQUEINGDOB: [place] [address]Zrs: (HP) Primary Insurance:[facility] MEDICAID [facility]: [id number] ve Date:2023-05-16 [facility] [id number] [place] [address] [facility] 10/04/2024 [facility] [place] [address]Udl: (HP) Primary Insurance:[facility] MEDICAID [facility] Number: [id number] ve Date:2023-05-16 [id number] [place] [address] [facility] 08/24/2024 [facility] [place], [place] [address]Nzl: (HP) Primary Insurance:[facility] [place]ICAID [place] Number: [id number] ve Date:2023-05-16 [facility]: [id number] [place] [address] [facility] 08/24/2024 [facility] [place] [address]Bsl: (HP) Primary Insurance:[facility] MEDICAID [place] Number: [id number] ve Date:2023-05-16 [facility] GREENINGDOB: [id number] [place] [address] [facility] EPIC 07/27/2024 [facility] GREENINGDOB: [facility] [address] [address]Itc: (HP) Primary Insurance:[facility] MEDICAID [place] Number: [id number] ve Date:2023-05-16 [facility] GREENINGDOB: [id number] [address] [facility] 06/24/2024 Sachin Irma Garner[address] [place] [id number]: (HP) Primary Insurance:Self PayPolicy Number: Effective Date:2024-06-[address] [facility] 06/24/2024 [facility] GREENINGDOB: [address] [address]Lzi: (HP) Primary Insurance:[facility] MEDICAID [place] Number: [id number] ve Date:2023-05-16 [facility] GREENINGDOB: [id number] [facility] [address] [address] [facility] 06/24/2024 [facility] GREENINGDOB: [address] [address]Htn: (HP) Primary Insurance:[facility] MEDICAID [place] Number: [id number] ve Date:2023-05-16 [facility] GREENINGDOB: [id number] [address] [address] [facility] EP[facility] 02/09/2024 [facility] GREENINGDOB: [address] [address]Ylh: (HP) Primary Insurance:[facility] MEDICAID [facility] Number: [id number] ve Date:2023-05-16 [facility] GREENINGDOB: [id number] [address] [facility] EP[facility] 01/26/2024 KALYN GREENINGDOB: [facility] [address] [address]Pog: (HP) Primary Insurance:[facility] MEDICAID [facility] Number: [id number] ve Date:2023-05-16 [facility] GREENINGDOB: [id number] [address] [address] [facility] EP[facility] 01/06/2024 KALYN GREENINGDOB: [facility] [address] [address]Dhk: (HP) Primary Insurance:[facility] MEDICAID [facility] Number: [id number] ve Date:2023-05-16 [facility] GREENINGDOB: [id number] [address] [address] [facility] 12/23/2023 [facility] GREENINGDOB: [address] [address]Zxr: (HP) Primary Insurance:[facility] MEDICAID [facility] Number: [id number] ve Date:2023-05-16 [facility] GREENINGDOB: [id number] [facility] [address] [address] [facility] EP[facility] 11/19/2023 [facility] GREENINGDOB: [address] [address]Gji: (HP) Primary Insurance:[facility] MEDICAID [facility] Number: [id number] ve Date:2023-05-16 KALYN CURTIS: [id number] [facility] [address] [place] [address] [facility] EP[facility]
--- OUTSIDE RECORDS SUMMARY | 2024-11-05 12:12 | XMS_ITS | Encounter Summary ---
Author Organization [facility] Address [address] [place] [address] Care Team Providers Care Web Site Designer Name Role Phone Unavailable Primary Care Provider Unavailabl e Encounter Details Date Type Department Care Team (Late st Contact Info) Description 06/28/2024 Abstract [facility] [address] [place] [id number] Nelson Christiansen DO [facility] [address] Rueda, [facility] Social History Tobacco Use Types Packs/Day Years [...] PM EST documented as of this encounter Plan of Treatment Upcoming Encounters Date Type Department Care Team (Late st Contact Info) Description 11/17/2024 1:00 PM EDT Routine [facility] [address] [place] [address] Nelson Christiansen DO [facility] Mariza Rueda, [facility] documented as of this encounter Visit Diagnoses Not on filedocumented in this encounter
--- OUTSIDE RECORDS SUMMARY | 2024-11-05 12:12 | XMS_ITS | Encounter Summary ---
Author Organization [facility] Address [address] [place] [address] Care Team Providers Care Product Technician Name Role Phone Unavailable Primary Care Provider Unavailabl e Encounter Details Date Type Department Care Team (Late st Contact Info) Description 11/04/2024 Results Follow-Up [facility] [address] [facility] [address] Mini Thorne LPN [address] [place] [address] Social History Tobacco Use Types Packs/Day Years [...] PM EST documented as of this encounter Miscellaneous Notes * Result Encounter Note - Mini Thorne LPN - 11/04/2024 4:29 PM EDT Pt notified documented in this encounter Plan of Treatment Upcoming Encounters Date Type Department Care Team (Late st Contact Info) Description 11/17/2024 1:00 PM EDT Routine [facility] [address] [place] [address] Nelson Christiansen, [address] [place] [address] documented as of this encounter Visit Diagnoses Not on filedocumented in this encounter
--- OUTSIDE RECORDS SUMMARY | 2024-11-05 12:12 | XMS_ITS | Encounter Summary ---
Author Organization [facility] Address [address] [place] [address] Care Team Providers Care Patient Accounts Coordinator Name Role Phone Unavailable Primary Care Provider Unavailabl e Encounter Details Date Type Department Care Team (Late st Contact Info) Description 02/02/[address] [facility] [address] [place] [phone] Nelson Christiansen [facility] Mariza Rueda, [facility]11 Social History Tobacco Use Types Packs/Day Years Used Date Smoking Tobacco: Never Assessed Comments Yes Sex and Gender Information Value Date Recorded Sex Assigned at Female 07/07/2023 3:39 PM EST Legal Sex Female 7:30 PM EDT Gender Identity Female 07/07/2023 3:39 PM EST Sexual Orientation Straight 07/07/2023 3: 39 PM EST documented as of this encounter Plan of Treatment Upcoming Encounters Date Type Department Care Team (Late st Contact Info) Description 11/17/2024 1:00 PM EDT Routine [facility] [address] [place] [address] Nelson Christiansen [facility] Mar[address] Rueda, [facility]11 documented as of this encounter Visit Diagnoses Not on filedocumented in this encounter
--- OUTSIDE RECORDS SUMMARY | 2024-11-05 12:12 | XMS_ITS | Clinical Summary ---
Author Organization [facility] Address [address] [place] [address] Care Team Providers Care Technology Applications Consultant Name Role Phone Unavailable Primary Care Provider Unavailabl e Allergies No known active allergies Medications MV-Min-Fe Fum-FA-DHA ( 1 PO) Take 1 each by mouth Daily Active iron polysaccharides (ProFe) 391.3 (180 Fe) MG capsuleIndications :30 weeks gestation of ,Third trimester Take 1 capsule (391.3 mg) by mouth Daily 30 capsule 6 025 2024 Active docusate sodium (Colace) 100 MG capsuleIndications :Constipation, unspecified constipation type Take 1 capsule (100 mg) by mouth 2 (two) times a day as needed for constipation for up to 10 days 30 capsule 5 025 2024 Active Vit-Fe Fumarate-FA ( Vitamins) 28-0.8 MG tabletIndications: Missed menses,, unspecified gestational age,Encounter for supervision of normal first in first trimester Take 1 tablet by mouth Daily 30 tablet 11 025 2024 Discontinued nitrofurantoin, macrocrystal-monoh ydrate, (Macrobid) 100 MG capsuleIndications :UTI symptoms Take 1 capsule (100 mg) by mouth in the morning and 1 capsule (100 mg) before bedtime. Do all this for 7 days. 14 capsule 025 2024 cephalexin (Keflex) 500 MG capsuleIndications :Group B streptococcal bacteriuria Take 1 capsule (500 mg) by mouth in the morning and 1 capsule (500 mg) in the evening and 1 capsule (500 mg) before bedtime. Do all this for 7 days. 21 capsule 025 2024 Encounters Date Type Department Care Team Description 11/05/2024 Abstract [facility] [address] [place] [address] Willi Christiansen, DO 11/04/2024 Results Follow-Up [facility] [address] [place] [address] Mini Thorne LPN 11/03/2024 9:00 AM EDT Routine [facility] [address] [place] [address] Kristina Echavarria PA 30 weeks gestation of ; Third trimester ; SGA (small for gestational age); Antepartum anemia; Constipation, unspecified constipation type 11/03/2024 Clinisync Result Encounter [facility] External Department Unsolicited Willi Christiansen, DO 11/03/2024 Bamboo flowsheet [facility] [address] [place] [address] Kristina Echavarria PA 10/28/20[address] Tele[address] [facility] [address] [place] [address] Tabitha Garduno MA 10/07/2024 Results Follow-Up [facility] [address] [place] [address] Mini Thorne LPN 10/06/2024 Telephone [facility] [address] [place] [address] Mini Thorne LPN 10/04/2024 3:00 PM EDT Routine [facility] [address] [place] [address] [place] [address] Kristina Echavarria PA 26 weeks gestation of ; Second trimester ; Diabetes mellitus screening; UTI symptoms; SGA (small for gestational age) 10/04/2024 Bamboo flowsheet [facility] [address] [place] [address] Kristina Echavarria PA 08/26/2024 Telephone [facility] [address] [place] [address] Mini ThorneMICKEY 08/24/2024 2:30 PM EDT Routine [facility] [address] [place] [address] Kristina Echavarria PA Second trimester ; 20 weeks gestation of ; Need for maternal serum alpha-protein (MSAFP) screening; Low iron 08/24/2024 1:30 PM EDT Ancillary Procedure [facility] [address] [place] [address] Screening, , for anatomic survey from Last 3 Months Social History Tobacco Use Types Packs/Day Years Used Date Smoking Tobacco: Former Cigarettes Tobacco Cessation:Counseling Given: Not Answered Estimated Date of Delivery Comme nts Yes 01/06/2025 Based on Ultraso und, [id number] Sex and Gender Information Value Date Recorded Sex Assigned at Female 07/07/2023 3:39 PM EST Legal Sex Female 7:30 PM EDT Gender Identity Female 07/07/2023 3:39 PM EST Sexual Orientation Straight 07/07/2023 3: 39 PM EST Last Filed Vital Signs Vital Sign Reading Time Taken Comments Blood Pressure 120/80 11/03/2024 9:21 AM EDT Pulse - - Temperature - - Respiratory Rate - - Oxygen Saturation - - Inhaled Oxygen Concentration - - Weight 105 kg (231 lb 12.8 oz) 11/03/2024 9:21 A M EDT Height - - Body Mass Index - - Plan of Treatment Upcoming Encounters Date Type Department Care Team (Late st Contact Info) Description 11/17/2024 1:00 PM EDT Routine [facility] OB [address] [place] [address] Willi Christiansen DO [address] [place], [place] [id number] Health Maintenance Due Date Last Done Comments Influenza Vaccine (Season Ended) 2025 Procedures Procedure Name Priority Date/Time Associated Diagnosis Comments US OB GROWTH 11/03/2024 5:05 PM EDT TRANSFERRIN Routine 11/03/2024 4:53 PM EDT MLR HEMOGLOBIN A1C Routine 11/03/2024 4: 53 PM EDT [facility] FERRITIN Routine 11/03/2024 4:53 PM EDT ALL CBC WITH AUTO DIFF Routine 11/03/2024 4:53 PM EDT POCT URINALYSIS DIPSTICK Routine 11/03/2024 9:32 AM EDT 30 weeks gestation of Third trimester URINARY TRACT INFECTION (HTRX) Routine 10/04/2024 4:19 PM EDT POCT URINALYSIS DIPSTICK Routine 10/04/2024 3:29 PM EDT 26 weeks gestation of Second trimester POCT URINALYSIS DIPSTICK Routine 08/24/2024 3:28 PM EDT Second trimester US OB 14+ WEEKS ANATOMY SCAN Routine 08/24/2024 2:38 PM EDT Screening, , for anatomic survey from Last 3 Months Results * US OB GROWTH (11/03/2024 5:05 PM EDT) Anatomical Region Laterality Modality Other 11/03/2024 5:05 PM EDT Narrative 11/03/2024 5:08 PM EDT The [address] [address] Ultrasound Report Signed Patient: SHAYLA MARTINEZ MR#: [id number] : 2005 Acct:[id number] Age/Sex: 18 / F ADM Date: 11/03/24 Loc: US Attending Dr: Kristina Echavarria Ordering Physician: Willi Christiansen D.O. Date of Service: 11/03/24 Procedure(s): US OB growth Accession Number(s): [id number] cc: Willi Christiansen D.O.; Physician,Non-Staff Arin The [place] [address] Patient Name: SHAYLA MARTINEZ MRN: [id number] date: 2005 Sex: F Assigned Patient Location: US Current Patient Location: US Accession/Order Number: [id number] Exam Date: 11/03/2024 17:00 Report Date: 11/03/2024 17:05 At the request of: WILLI CHRISTIANSEN DO Procedure: US OB growth Ultrasound ultrasound to assess for growth HISTORY: Small for gestational age Fetus in cephalic presentation with longitudinal lie. The amniotic fluid index is 13.9 cm within normal limits. The largest fluid pocket measures 6.3 cm. The placenta is in anterior position and is normal. There is a hypoechoic area identified in the placenta measuring 1.4 x 4.0 x 2.7 cm. May represent septation. Grade 1 placenta. heart rate 130 bpm. Possible nuchal CORD. History weight is 1642 g which is 35.5 percentile. Estimated delivery by ultrasound is 30 weeks 6 days. Estimated date of delivery by last menstrual period 30 weeks 6 days US/US OB growth IMPRESSION: Single live intrauterine gestation 30 weeks 6 days. Possible nuchal cord. There is septation of the placenta. Likely a normal benign finding. Impression dictated by: Froy Ladd M.D. 11/03/2024 5:05 PM Dictation Location: [place] [address] Electronically authenticated by: [id number] Y Date: 11/03/2024 17:05 Dictated By: Froy Ladd D.O. Signed By: 11/03/241707 DD/ 04 TD/TT: Transportation Aide: Procedure Note Radiology, Radiologist, - 11/03/2024 [place] [address] Ultrasound Report Signed Patient: BRODIE MARTINEZ#: [id number] : 2005Acct:[id number] Age/Sex: 18 / FADM Date: 11/03/24 Loc: US Attending Dr: Kristina Echavarria Ordering Physician: Willi Christiansen D.O. Date of Service: 11/03/24 Procedure(s): US OB growth Accession Number(s): [id number] cc: Willi Christiansen D.O.; Physician,Non-Staff [place] [id number] Patient Name: SHAYLA MARTINEZ MRN: [id number] date: 2005 Sex: F Assigned Patient Location: US Current Patient Location: US Accession/Order Number: [id number] Exam Date: 11/03/2024 17:00 Report Date: 11/03/2024 17:05 At the request of: WILLI CHRISTIANSEN DO Procedure: US OB growth Ultrasound ultrasound to assess for growth HISTORY: Small for gestational age Fetus in cephalic presentation with longitudinal lie. The amniotic fluid index is 13.9 cm within normal limits. The largest fluid pocket measures6.3 cm. The placenta is in anterior position and is normal. There is a hypoechoic area identified in the placenta measuring 1.4 x 4.0 x 2.7 cm.May represent septation. Grade 1 placenta. heart rate 130 bpm.Possible nuchal CORD. History weight is 1642 g which is 35.5 percentile. Estimated delivery by ultrasound is 30 weeks 6 days. Estimated date of delivery by last menstrual period 30 weeks 6 days US/US OB growth IMPRESSION: Single live intrauterine gestation 30 weeks 6 days. Possible nuchal cord. There is septation of the placenta. Likely a normal benign finding. Impression dictated by: Froy Ladd M.D. 11/03/2024 5:05 PM Dictation Location[facility] Electronically authenticated by: [id number] Y Date: 7:05 Dictated By: Froy Ladd D.O. Signed By:11/03/248 DD/ 04 TD/TT: Transportation Aide: Willi Елена DO [facility] IMAG[facility] Final Result * (ABNORMAL) TRANSFERRIN (11/03/2024 4:53 PM EDT) TRANSFERRIN 470(A) 192 - 364 mg/dL TBH Comment: Performed at: [facility] Lab[address] [id number] Platform Engineer: Ez Overton PhD, Phone: [phone] 11/03/2024 4:53 PM EDT 11/03/2024 4:56 PM EDT Narrative CLINISYNC - 11/05/2024 5:07 AM EDT Kristina RHODES LAB BLOOD ORDERABLES Final Resul t Performing Organization Address [facility] de Phone Number [facility] TB * MLR HEMOGLOBIN A1C (11/03/2024 4:53 PM EDT) GLYCOHEMOGLOBIN A1C 5.6 4.5 - 6.2 % TBH Comment: ADA RECOMMENDED LIMIT 4.0 - 6.0 ADA THERAPEUTIC TARGET < 7.0 ACTION SUGGESTED > 7.0 ESTIMATED AVERAGE GLUCOSE 114 mg/dL TBH 11/03/2024 4:53 PM EDT 11/03/2024 4:56 PM EDT Narrative CLINISYNC - 11/03/2024 6:28 PM EDT Kristina RHODES CLINISYJUAN Final Result Performing Organization Address [facility] Co de Phone Number CLINISYSD TB * (ABNORMAL) CCF FERRITIN (11/03/2024 4:53 PM EDT) FERRITIN 5.0(L) 8.0 - 252.0 ng/mL TBH 11/03/2024 4:53 PM EDT 11/03/2024 4:56 PM EDT Narrative CLINISYNC - 11/03/2024 6:28 PM EDT Kristina RHODSE CLINISYNC Final Result Performing Organization Address [facility]/State/ZIP Co de Phone Number [facility] * (ABNORMAL) ALL CBC WITH AUTO DIFF (11/03/2024 4:53 PM EDT) [facility] TB WBC 10.5 4.0 - 11.0 10 3/uL TBH TBH RBC 3.81(L) 4.20 - 5.40 10 6/uL TBH TBH HGB 10.0(L) 12.0 - 16.0 g/dL TBH TBH HCT 31.5(L) 36.0 - 48.0 % TBH TBH MCV 82.7 81.0 - 99.0 fL TBH TBH MCH 26.2(L) 26.7 - 34.0 pg TBH TBH MCHC 31.7 29.9 - 35.2 g/dL TBH TBH RDW 14.7 11.0 - 15.0 % TBH TBH PLT 295 150 - 450 10 3/uL TBH TBH MPV 10.7 9.5 - 13.5 fL TBH NEUTROPHILS PERCENT AUTO 69.8 43.0 - 75.0 % TBH LYMPHOCYTES PERCENT AUTO 21.1 20.5 - 60.0 % TBH MONOCYTES PERCENT AUTO 7.6 1.7 - 12.0 % TBH TBH EO % 0.6(L) 0.9 - 7.0 % TBH BASOPHILS PERCENT AUTO 0.3 0.2 - 2.0 % TBH IMMATURE GRANULOCYTES PCT AUTO 0.6(H) 0.0 - 0.5 % TBH NEUTROPHILS ABSOLUTE AUTO 7.4(H) 1.4 - 6.5 10 3/uL TBH LYMPHOCYTES ABSOLUTE AUTO 2.2 1.2 - 3.8 10 3/uL TBH MONOCYTES ABSOLUTE AUTO 0.8 0.3 - 0.8 10 3/uL TBH TBH EO # 0.1 0.0 - 0.7 10 3/uL TBH BASOPHILS ABSOLUTE AUTO 0.0 0.0 - 0.1 10 3/uL TBH IMMATURE GRANULOCYTES ABS AUTO 0.06(H) 0.00 - 0.03 10 3/uL TBH 11/03/2024 4:53 PM EDT 11/03/2024 4:56 PM EDT Narrative CLINISYNC - 11/03/2024 5:46 PM EDT Kristina RHODES CLINISYNC Final Result JEANIE [facility] * (ABNORMAL) POCT urinalysis dipstick manually resulted (11/03/2024 9:32 AM EDT) Only the most recent of3 resultswithin the time period is included. Color, UA Yellow Clarity, UA Clear Glucose, [...] CARE TEST ENTER/EDIT OR DERABLES Final Result * (ABNORMAL) URINARY TRACT INFECTION (HTRX) (10/04/2024 4:19 PM EDT) ACINETOBACTER BAUMANII 0.000 19.961 - 24.689 ppm 10/06/2024 8:11 AM EDT [facility] ACINETOBACTER BAUMANII Not Detected 19.961 - 24.689 ppm 10/06/2024 8:11 AM EDT [facility] CITROBACTER FREUNDII 0.000 23.000 - 31.881 ppm 10/06/2024 8:11 AM EDT [facility] [place] CITROBACTER FREUNDII Not Detected 23.000 - 31.881 ppm 10/06/2024 8:11 AM EDT [facility] ENTEROBACTER AEROGENES, CLOACAE 0.000 23.000 - 31.535 ppm 10/06/2024 8:11 AM EDT [facility] [place] ENTEROBACTER AEROGENES, CLOACAE Not Detected 23.000 - 31.535 ppm 10/06/2024 8:11 AM EDT [facility] ENTEROCOCCUS FAECALIS, FAECIUM 0.000 26.000 - 31.575 ppm 10/06/2024 8:11 AM EDT [facility] ENTEROCOCCUS FAECALIS, FAECIUM Not Detected 26.000 - 31.575 ppm 10/06/2024 8:11 AM EDT [facility] ESCHERICHIA COLI 0.000 23.000 - 28.500 ppm 10/06/2024 8:11 AM EDT [facility] ESCHERICHIA COLI Not Detected 23.000 - 28.500 ppm 10/06/2024 8:11 AM EDT [facility] KLEBSIELLA PNEUMONIAE, OXYTOCA 0.000 23.000 - 30.500 ppm 10/06/2024 8:11 AM EDT [facility] KLEBSIELLA PNEUMONIAE, OXYTOCA Not Detected 23.000 - 30.500 ppm 10/06/2024 8:11 AM EDT [facility] MORGANELLA MORGANII 0.000 19.961 - 24.689 ppm 10/06/2024 8:11 AM EDT [facility] MORGANELLA MORGANII Not Detected 19.961 - 24.689 ppm 10/06/2024 8:11 AM EDT [facility] PROTEUS MIRABILIS, VULGARIS 0.000 23.000 - 28.500 ppm 10/06/2024 8:11 AM EDT [facility] PROTEUS MIRABILIS, VULGARIS Not Detected 23.000 - 28.500 ppm 10/06/2024 8:11 AM EDT [facility] PSEUDOMONAS AERUGINOSA 0.000 23.000 - 28.500 ppm 10/06/2024 8:11 AM EDT [facility] PSEUDOMONAS AERUGINOSA Not Detected 23.000 - 28.500 ppm 10/06/2024 8:11 AM EDT [facility] STAPHYLOCOCCUS AUREUS 0.000 26.000 - 30.902 ppm 10/06/2024 8:11 AM EDT [facility] STAPHYLOCOCCUS AUREUS Not Detected 26.000 - 30.902 ppm 10/06/2024 8:11 AM EDT [facility] STREPTOCOCCUS AGALACTIAE (GROUP B STREP) 20.802(A) 26.000 - 32.222 ppm 10/06/2024 8:11 AM EDT [facility] STREPTOCOCCUS AGALACTIAE (GROUP B STREP) Detected(A) 26.000 - 32.222 ppm 10/06/2024 8:11 AM EDT [facility] REMY ALBICANS, PARAPSILOSIS, TROPICALIS 0.000 19.961 - 30.770 ppm 10/06/2024 8:11 AM EDT [facility] REMY ALBICANS, PARAPSILOSIS, TROPICALIS Not Detected 19.961 - 30.770 ppm 10/06/2024 8:11 AM EDT [facility] REMY GLABRATA 0.000 23.000 - 32.138 ppm 10/06/2024 8:11 AM EDT [facility] REMY GLABRATA Not Detected 23.000 - 32.138 ppm 10/06/2024 8:11 AM EDT [facility] REMY KRUSEI 0.000 23.000 - 32.271 ppm 10/06/2024 8:11 AM EDT [facility] REMY KRUSEI Not Detected 23.000 - 32.271 ppm 10/06/2024 8:11 AM EDT [facility] SERRATIA MARCESCENS 0.000 23.000 - 31.204 ppm 10/06/2024 8:11 AM EDT [facility] SERRATIA MARCESCENS Not Detected 23.000 - 31.204 ppm 10/06/2024 8:11 AM EDT [facility] STREPTOCOCCUS PYOGENES (GROUP A STREP) 0.000 19.961 - 24.689 ppm 10/06/2024 8:11 AM EDT [facility] STREPTOCOCCUS PYOGENES (GROUP A STREP) Not Detected 19.961 - 24.689 ppm 10/06/2024 8:11 AM EDT [facility] STAPHYLOCOCCUS EPIDERMIDIS, HAEMOLYTICUS, LUGDUNENSIS, SAPROPHYTICUS (URINA 0.000 19.961 - 24.689 ppm 10/06/2024 8:11 AM EDT [facility] STAPHYLOCOCCUS EPIDERMIDIS, HAEMOLYTICUS, LUGDUNENSIS, SAPROPHYTICUS (URINA Not Detected 19.961 - 24.689 ppm 10/06/2024 8:11 AM EDT [facility] STAPHYLOCOCCUS EPIDERMIDIS, HAEMOLYTICUS, LUGDUNENSIS, SAPROPHYTICUS (URINA 0.000 19.961 - 24.689 ppm 10/06/2024 8:11 AM EDT [facility] STAPHYLOCOCCUS EPIDERMIDIS, HAEMOLYTICUS, LUGDUNENSIS, SAPROPHYTICUS (URINA Not Detected 19.961 - 24.689 ppm 10/06/2024 8:11 AM EDT [facility] ERMB, C; MEFA 21.295(A) 23.000 - 27.611 ppm 10/06/2024 8:11 AM EDT [facility] ERMB, C; MEFA Detected(A) 23.000 - 27.611 ppm 10/06/2024 8:11 AM EDT [facility]rine 10/04/2024 4:19 PM EDT 10/06/2024 2:25 AM EDT us Willi Barneso DO LAB BLOOD ORDERABLES Final Resul t [facility] [address] [place] [address] * US OB 14+ weeks anatomy scan (08/24/2024 2:38 PM EDT) Anatomical Region Laterality Modality Body Ultrasound 08/25/2024 8:38 AM EDT Narrative 08/25/2024 8:38 AM EDT EXAM: US OB 14+ WEEKS ANATOMY SCAN [...] II, MD, PHD at 25-Aug-2024 08:37:46 AM [facility] Procedure Note Katey Spivey MD - 08/25/2024 EXAM: US OB 14+ WEEKS ANATOMY SCAN HISTORY: anatomy. COMPARISON: OB ultrasound 06/24/2024. TECHNIQUE: Two-dimensional transabdominal grayscale ultrasound imaging ofthe pelvis was performed. FINDINGS: Gestation: Single Presentation: [...] is 21 weeks 0 days (+/- 10 daysgestation). Estimated Weight: 381 grams, +/- 57 grams [...] gestation 20 weeks, 5 days by LMP. Today'sultrasound measurements correlate with a gestational age of 21 weeks 0days. Estimated weight is 381 grams, +/- 57 grams ( 0 lb 13 oz)which correlates to 52 %. CHENTE is 01/04/2025. 2. Unremarkable anatomy with limited visualization of the spine. Ashort- term follow-up ultrasound is recommended to further evaluate thespine, as well as monitor placental previa. 3. Marginal placental previa. Electronically Signed:Electronically signed by KATEY SPIVEY II, MD, PHDat 25-Aug-2024 08:37:46 AM [facility] us Willi Christiansen DO IMG OB US PROCEDURES Final Resul t from Last 3 Months Insurance [employer] MEDICAID [place]
--- OUTSIDE RECORDS SUMMARY | 2024-11-05 12:12 | XMS_ITS | Encounter Summary ---
Author Organization [facility] Address [address] [place] [address] Care Team Providers Care Disassembler Name Role Phone Unavailable Primary Care Provider Unavailabl e Encounter Details Date Type Department Care Team (Late st Contact Info) Description 01/23/2024 Abstract [facility] [address] [place] [phone] Nelson Christiansen [facility] [address], [facility]11 Social History Tobacco Use Types Packs/Day Years [...] Description 11/17/2024 1:00 PM EDT Routine [facility] OB [address] [place] [address] Nelson Christiansen [facility] [address], [facility]11 documented as of this encounter Visit Diagnoses Not on filedocumented in this encounter
--- OUTSIDE RECORDS SUMMARY | 2024-11-05 12:12 | XMS_ITS | Encounter Summary ---
Author Organization [facility] Address [address] [place] [address] Care Team Providers Care Government Sales Manager Name Role Phone Unavailable Primary Care Provider Unavailabl e Encounter Details Date Type Department Care Team (Late st Contact Info) Description 01/07/2024 Abstract [facility] [address] [place] [phone] Nelson Christiansen [facility] [address] [place], [id number] Social History Tobacco Use Types Packs/Day Years [...] Description 11/17/2024 1:00 PM EDT Routine [facility] OB [address] [place] [address] Nelson Christiansen [facility] [address] [place], [id number] documented as of this encounter Visit Diagnoses Not on filedocumented in this encounter
--- OUTSIDE RECORDS SUMMARY | 2024-11-05 12:12 | XMS_ITS | Encounter Summary ---
Author Organization [facility] Address [address] [place] [address] Care Team Providers Care Claim Professional Name Role Phone Unavailable Primary Care Provider Unavailabl e Encounter Details Date Type Department Care Team (Late st Contact Info) Description 06/28/2024 Abstract [facility] OB [address] [place] [address] Nelson Christiansen DO [facility] [address] [place], [facility]11 Social History Tobacco Use Types Packs/Day [...] Routine [facility] [address] [place] [address] Nelson Christiansen DO [facility] [address] [place], [facility]11 documented as of this encounter Visit Diagnoses Not on filedocumented in this encounter
--- OUTSIDE RECORDS SUMMARY | 2024-11-05 12:12 | XMS_ITS | Encounter Summary ---
Author Organization [facility] Address [address] [place] [address] Care Team Providers Care Brim Welt Sewing Machine Operator Name Role Phone Unavailable Primary Care Provider Unavailabl e Encounter Details Date Type Department Care Team (Late st Contact Info) Description 01/06/2024 Clinisync Result Encounter [facility] External Department Unsolicited Willi Christiansen, DO [address] [place] [address] Social History Tobacco Use Types Packs/Day Years [...] PM EDT Routine [facility] [address] [facility] [place] [phone] Willi Christiansen DO [address] [place] [address] documented as of this encounter Procedures Procedure Name Priority Date/Time Associated Diagnosis Comments US OB GROWTH 01/06/2024 11:23 AM EDT documented in this encounter Results * US OB GROWTH (01/06/2024 11:23 AM EDT) Anatomical Region Laterality Modality Other 01/06/2024 11:2 3 AM EDT Narrative 01/06/2024 11:26 AM EDT [address] [address] Ultrasound Report Signed Patient: SHAYLA MARTINEZ MR#: [id number] : 2005 Acct:[id number] Age/Sex: 18 / F ADM Date: 01/06/24 Loc: [facility] Attending Dr: Willi Christiansen D.O. Ordering Physician: Willi Christiansen D.O. Date of Service: 01/06/24 Procedure(s): US OB growth Accession Number(s): [id number] cc: Willi Christiansen D.O.; Physician,Non-Staff Arin [address] [address] Patient Name: SHAYLA MARTINEZ MRN: [facility]:[id number] date: 2005 Sex: F Assigned Patient Location: [facility] Current Patient Location: [facility] Accession/Order Number: [id number] Exam Date: 01/06/2024 10:06 Report Date: 01/06/2024 11:23 At the request of: WILLI CHRISTIANSEN Procedure: US OB growth EXAMINATION: US OB growth HISTORY: SIZE INCONSISTENT WITH DATES COMPARISON: Ultrasound OB anatomy 10/20/2023 FINDINGS: Heart Rate: 132 bpm Amniotic Fluid Volume: 10.8 cm Number: 1 Position: CEPHALIC BIOMETRY: BPD: 8.17 cm; 32 weeks 6 days; 38.50 % HC: 29.98 cm; 33 weeks 2 days; 19.40 % AC: 28.86 cm; 32 weeks 6 days; 47 % FL: 6.33 cm; 32 weeks 5 days; 31 % EFW: 2044.98 g; 36.30 % FL/AC: 21.93 FL/BPD: 77.48 HC/AC: 1.04 GESTATIONAL AGE: Age by EDC: 33 weeks 0 days CHENTE by EDC: 2024-02-24 Age by US: 33 weeks 0 days CHENTE by US: 2024-02-24 US/US OB growth IMPRESSION: 1. Single live intrauterine with growth detailed above. Electronically authenticated by: SEFERINO SOLANO Date: 01/06/2024 11:23 Dictated By: Seferino Solano M.D. Signed By: 01/06/24 1126 DD/ 1123 TD/TT: Safety Spec: Procedure Note Radiology, Radiologist, MD - 01/06/2024 [place] [address] Ultrasound Report Signed Patient: BRODIE MARTINEZ#: [id number] : 2005Acct:[id number] Age/Sex: 18 FADM Date: 01/06/24 Loc: [facility] Attending Dr: Willi Christiansen D.O. Ordering Physician: Willi Christiansen D.O. Date of Service: 01/06/24 Procedure(s): US OB growth Accession Number(s): [id number] cc: Willi Christiansen D.O.; Physician,Non-Staff Arin The [place] [address] Patient Name: SHAYLA MARTINEZ MRN: [id number] date: 2005 Sex: F Assigned Patient Location: [facility] Current Patient Location: [facility] Accession/Order Number: [id number] Exam Date: 01/06/2024 10:06 Report Date: 01/06/2024 11:23 At the request of: WILLI CHRISTIANSEN Procedure: US OB growth EXAMINATION: US OB growth HISTORY: SIZE INCONSISTENT WITH DATES COMPARISON: Ultrasound OB anatomy 10/20/2023 FINDINGS: Heart Rate: 132 bpm Amniotic Fluid Volume: 10.8 cm Number: 1 Position: CEPHALIC BIOMETRY: BPD: 8.17 cm; 32 weeks 6 days; 38.50 % HC: 29.98 cm; 33 weeks 2 days; 19.40 % AC: 28.86 cm; 32 weeks 6 days; 47 % FL: 6.33 cm; 32 weeks 5 days; 31 % EFW: 2044.98 g; 36.30 % FL/AC: 21.93 FL/BPD: 77.48 HC/AC: 1.04 GESTATIONAL AGE: Age by EDC: 33 weeks 0 days CHENTE by EDC: 2024-02-24 Age by US: 33 weeks 0 days CHENTE by US: 2024-02-24 US/US OB growth IMPRESSION: 1. Single live intrauterine with growth detailed above. Electronically authenticated by: SEFERINO SOLANO Date: 01/06/2024 11:23 Dictated By: Seferino Solano M.D. Signed By:01/06/24 1126 DD/ 1123 TD/TT: Safety Spec: us Willi Елена DO [facility] Final Result documented in this encounter Visit Diagnoses Not on filedocumented in this encounter
--- OUTSIDE RECORDS SUMMARY | 2024-11-05 12:12 | XMS_ITS | Encounter Summary ---
Author Organization [facility] Address [address] [place] [address] Care Team Providers Care Heel Seat Fitter Machine Name Role Phone Unavailable Primary Care Provider Unavailabl e Encounter Details Date Type Department Care Team (Late st Contact Info) Description 01/03/2024 Clinisync Result Encounter [facility] External Department Unsolicited Willi Christiansen, DO [address] [place], [place] [id number] Social History Tobacco Use Types Packs/Day Years [...] PM EDT Routine [facility]CP OB [address] [facility] [phone] Willi Christiansen DO [address] [place] [address] documented as of this encounter Procedures Procedure Name Priority Date/Time Associated Diagnosis Comments US OB PLACENTA 01/03/2024 8:37 AM EDT documented in this encounter Results * US OB PLACENTA (01/03/2024 8:37 AM EDT) Anatomical Region Laterality Modality Other 01/03/2024 8:37 AM EDT Narrative 01/03/2024 8:40 AM EDT [address] [address] Ultrasound Report Signed Patient: SHAYLA MARTINEZ MR#: [id number] : 2005 Acct:[id number] Age/Sex: 18 / F ADM Date: Loc: [facility] 251-[address]: Willi Christiansen D.O. Ordering Physician: Willi Christiansen D.O. Date of Service: 01/03/24 Procedure(s): US OB placenta Accession Number(s): [id number] cc: Willi Christiansen D.O.; Physician,Non-Staff Arin The [address] [address] Patient Name: SHAYLA MARTINEZ MRN: [facility]:[id number] date: 2005 Sex: F Assigned Patient Location: [facility] Current Patient Location: [facility] Accession/Order Number: [id number] Exam Date: 01/03/2024 07:11 Report Date: 01/03/2024 08:37 At the request of: WILLI CHRISTIANSEN Procedure: US OB placenta EXAM: US OB cervical length, US OB placenta INDICATION: Fall. COMPARISON: None. TECHNIQUE: Limited obstetric ultrasound was performed. FINDINGS: Single intrauterine gestation in cephalic presentation R[place]: 16.2 cm, normal Single deepest pocket: 5.1 cm Placenta location: Posterior. No evidence of placental abruption. heart rate: 126 bpm Cervical length: 3.5 cm, closed US/US OB placenta IMPRESSION: 1. Single live intrauterine gestation. 2. Normal cervical length. 3. Posterior placenta. Electronically authenticated by: MARITZA HDEZ Date: 01/03/2024 08:37 Dictated By: Maritza Hdez M.D. Signed By: 01/03/24 0840 DD/ TD/TT: Oven Tender: Procedure Note Radiology, Radiologist, MD - 01/03/[address] [address] Ultrasound Report Signed Patient: BETHANIE MARTINEZR#: [id number] : 2005Acct:[id number] Age/Sex: 18 / FADM Date: Loc: [facility] 251-[address]: Willi Christiansen D.O. Ordering Physician: Willi Christiansen D.O. Date of Service: 01/03/24 Procedure(s): US OB placenta Accession Number(s): [id number] cc: Willi Christiansen D.O.; Physician,Non-Staff Arin [place] [id number] Patient Name: SHAYLA MARTINEZ MRN: [id number] date: 2005 Sex: F Assigned Patient Location: [facility] Current Patient Location: [facility] Accession/Order Number: [id number] Exam Date: 01/03/2024 07:11 Report Date: 01/03/2024 08:37 At the request of: WILLI CHRISTIANSEN Procedure: US OB placenta EXAM: US OB cervical length, US OB placenta INDICATION: Fall. COMPARISON: None. TECHNIQUE: Limited obstetric ultrasound was performed. FINDINGS: Single intrauterine gestation in cephalic presentation [place]: 16.2 cm, normal Single deepest pocket: 5.1 cm Placenta location: Posterior. No evidence of placental abruption. heart rate: 126 bpm Cervical length: 3.5 cm, closed US/US OB placenta IMPRESSION: 1. Single live intrauterine gestation. 2. Normal cervical length. 3. Posterior placenta. Electronically authenticated by: MARITZA HDEZ Date: 01/03/2024 08:37 Dictated By: Maritza Hdez M.D. Signed By:01/03/24 0840 DD/ 0837 TD/TT: Oven Tender: us Willi Christiansen DO [facility] Final Result documented in this encounter Visit Diagnoses Not on filedocumented in this encounter
--- OUTSIDE RECORDS SUMMARY | 2024-11-05 12:12 | XMS_ITS | Encounter Summary ---
Author Organization [facility] Address [address] [place] [address] Care Team Providers Care Education Counselor Name Role Phone Unavailable Primary Care Provider Unavailabl e Encounter Details Date Type Department Care Team (Late st Contact Info) Description 11/05/2024 Abstract [facility] OB [address] [place] [phone] Nelson hCristiansen DO [facility] [address], [facility]11 Social History Tobacco Use Types Packs/Day [...] Routine [facility] BCP OB [address] [place] [address] Nelson Christiansen DO [facility] [address], [facility]11 documented as of this encounter Visit Diagnoses Not on filedocumented in this encounter
--- OUTSIDE RECORDS SUMMARY | 2024-11-05 12:12 | XMS_ITS | Encounter Summary ---
Author Organization [facility] Address [address] [place] [address] Care Team Providers Care Component Assembler Name Role Phone Unavailable Primary Care Provider Unavailabl e Encounter Details Date Type Department Care Team (Late st Contact Info) Description 07/25/2023 Clinisync Result Encounter [facility] External Department Unsolicited Willi Christiansen, DO [facility] [place] [address] Social History Tobacco Use Types Packs/Day Years [...] PM EDT Routine [facility] BCP OB [address] [place] [address] Willi Christiansen, DO [address] [place] [address] documented as of this encounter Procedures Procedure Name Priority Date/Time Associated Diagnosis Comments US OB TRANSVAGINAL 07/25/2023 10 :11 AM EST documented in this encounter Results * US OB TRANSVAGINAL (07/25/2023 10:11 AM EST) Anatomical Region Laterality Modality Other 07/25/2023 10:1 1 AM EST Narrative 07/25/2023 10:13 AM EST [address] [address] Ultrasound Report Signed Patient: SHAYLA MARTINEZ MR#: [id number] : 2005 Acct:[id number] Age/Sex: 17 / F ADM Date: 07/25/23 Loc: [facility] Attending Dr: Willi Christiansen D.O. Ordering Physician: Willi Christiansen D.O. Date of Service: 07/25/23 Procedure(s): US OB transvaginal Accession Number(s): [id number] cc: Willi Christiansen D.O.; Physician,Non-Staff Arin [address] [address] Patient Name: SHAYLA MARTINEZ MRN: [id number] date: 2005 Sex: F Assigned [facility] Accession/Order Number: [id number] Exam Date: 07/25/2023 09:33 Report Date: 07/25/2023 10:11 At the request of: WILLI CHRISTIANSEN Procedure: US OB transvaginal EXAMINATION: US OB transvaginal HISTORY: MISSED MENSES COMPARISON: No relevant comparison available. FINDINGS: Barajas intrauterine gestation Gestational sac: 3.93 cm, 9 weeks 2 days CRL: 2.5 cm, 9 weeks 6 days Yolk sac: 4.7 mm Heart rate: 154 bpm Cervix: Closed, 3.9 cm The uterus is normal, retroverted, retroflexed The right ovary is normal measuring 2.8 x 2.4 x 3.3 cm. Corpus luteal cyst. The left ovary is normal measuring 2.3 x 1.4 x 2.3 cm. Clinical age: 9 weeks 3 days Clinical CHENTE: 02/24/2024 Ultrasound age: 9 weeks 6 days Ultrasound CHENTE: 02/21/2024 US/US OB transvaginal IMPRESSION: Viable barajas intrauterine gestation measuring 9 weeks 6 days Electronically authenticated by: SADIQ VILLA Date: 07/25/2023 10:11 Dictated By: Sadiq Villa M.D. Signed By: 07/25/23 1013 DD/ 1011 TD/TT: Compounding Assistant: Procedure Note Radiology, Radiologist, MD - 07/25/2023 [place] [address] Ultrasound Report Signed Patient: BRODIE MARTINEZ#: [id number] : 2005Acct:[id number] Age/Sex: 17 / FADM Date: 07/25/23 Loc: [facility] Attending Dr: Willi Christiansen D.O. Ordering Physician: Willi Christiansen D.O. Date of Service: 07/25/23 Procedure(s): US OB transvaginal Accession Number(s): [id number] cc: Willi Christiansen D.O.; Physician,Non-Staff Arin The [place] [id number] Patient Name: SHAYLA MARTINEZ MRN: [id number] date: 2005 Sex: F Assigned Patient [facility]: [facility] Current Patient Location: [facility] Accession/Order Number: [id number] Exam Date: 07/25/2023 09:33 Report Date: 07/25/2023 10:11 At the request of: WILLI CHRISTIANSEN Procedure: US OB transvaginal EXAMINATION: US OB transvaginal HISTORY: MISSED MENSES COMPARISON: No relevant comparison available. FINDINGS: Barajas intrauterine gestation Gestational sac: 3.93 cm, 9 weeks 2 days CRL: 2.5 cm, 9 weeks 6 days Yolk sac: 4.7 mm Heart rate: 154 bpm Cervix: Closed, 3.9 cm The uterus is normal, retroverted, retroflexed The right ovary is normal measuring 2.8 x 2.4 x 3.3 cm. Corpus lutealcyst. The left ovary is normal measuring 2.3 x 1.4 x 2.3 cm. Clinical age: 9 weeks 3 days Clinical CHENTE: 02/24/2024 Ultrasound age: 9 weeks 6 days Ultrasound CHENTE: 02/21/2024 US/US OB transvaginal IMPRESSION: Viable barajas intrauterine gestation measuring 9 weeks 6 days Electronically authenticated by: SADIQ VILLA Date: 07/25/2023 10:11 Dictated By: Sadiq Villa M.D. Signed By:07/25/23 1013 DD/ 1011 TD/TT: Compounding Assistant: us Willi Елена DO [facility] Final Result documented in this encounter Visit Diagnoses Not on filedocumented in this encounter
--- OUTSIDE RECORDS SUMMARY | 2024-11-05 12:12 | XMS_ITS | Encounter Summary ---
Author Organization [facility] Address [address] [place] [address] Care Team Providers Care Cash Management Clerk Name Role Phone Unavailable Primary Care Provider Unavailabl e Encounter Details Date Type Department Care Team (Late st Contact Info) Description 06/24/2024 Abstract [facility] OB [address] [place] [phone] Nelson Christiansen DO [facility] [address], [facility]11 Social History Tobacco Use Types [...] Routine [facility] BCP OB [address] [place] [address] Nelson Christiansen DO [facility] [address], [facility]11 documented as of this encounter Visit Diagnoses Not on filedocumented in this encounter
--- OUTSIDE RECORDS SUMMARY | 2024-11-05 12:12 | XMS_ITS | Encounter Summary ---
Author Organization [facility] Address [address] [place] [address] Care Team Providers Care Printing Sales Representative Name Role Phone Unavailable Primary Care Provider Unavailabl e Encounter Details Date Type Department Care Team (Late st Contact Info) Description 02/10/2024 Abstract [facility] [address] [place] [phone] Nelson Christiansen [facility] [address] R[address]a, [facility]11 Social History Tobacco Use Types Packs/Day [...] Description 11/17/2024 1:00 PM EDT Routine [facility] OB [address] [place] [address] Nelson Christiansen [facility] [address]a, [facility]11 documented as of this encounter Visit Diagnoses Not on filedocumented in this encounter
--- OUTSIDE RECORDS SUMMARY | 2024-11-05 12:12 | XMS_ITS | Encounter Summary ---
Author Organization [facility] Address [address] [place] [address] Care Team Providers Care Water Restoration Technician Name Role Phone Unavailable Primary Care Provider Unavailabl e Encounter Details Date Type Department Care Team (Late st Contact Info) Description 02/04/2024 Abstract N[facility] [address] [place] [phone] Nelson Christiansen [facility] [address] [place], [facility]11 Social History [...] Description 11/17/2024 1:00 PM EDT Routine NOMS [facility] OB [address] [place] [address] Nelson Christiansen [facility] [address] [place], [facility]11 documented as of this encounter Visit Diagnoses Not on filedocumented in this encounter
--- OUTSIDE RECORDS SUMMARY | 2024-11-05 12:12 | XMS_ITS | Encounter Summary ---
Author Organization [facility] Address [address] [place] [address] Care Team Providers Care Green Marketer Name Role Phone Unavailable Primary Care Provider Unavailabl e Encounter Details Date Type Department Care Team (Late st Contact Info) Description 10/07/2024 Results Follow-Up [facility] BCP OB 102 [facility] [place] [address] Mini Thorne LPN [address] [place] [address] Social History Tobacco Use Types Packs/Day Years [...] Encounter Note - Mini Thorne LPN - 10/07/2024 9:08 AM EDT Pt notified and treated. documented in this encounter Plan of Treatment Upcoming Encounters Date Type Department Care Team (Late st Contact Info) Description 11/17/2024 1:00 PM EDT Routine [facility] BCP OB [address] [facility] [place] [address] Nelson Christiansen, [address] Ila Sosa [place], [facility]11 documented as of this encounter Visit Diagnoses Not on filedocumented in this encounter
--- OUTSIDE RECORDS SUMMARY | 2024-11-05 12:12 | XMS_ITS | Clinical Summary ---
Author Organization [employer] Address [id number] [address] [place] [address] Care Team Providers Care Resident Advisor Name Role Phone Haleigh Her APRN-CASE TECHNICIAN Primary Care Provid er Allergies Active Allergy Reactions Criticality Noted Date Comments Amoxicillin 12/27/2022 Medications FeroSuL 325 mg (65 mg iron) tablet Take 1 tablet by mouth 3 (three) times a day. 12/18/2021 Active promethazine (PHENERGAN) 25 mg tablet Take 1 tablet (25 mg total) by mouth every 6 (six) hours as needed for nausea or vomiting. 15 tablet 07/18/2023 Active Active Problems Estimated Date of Delivery Comme nts Yes 02/24/2024 No known active problems Resolved Problems Problem Noted Date Diagnosed Date Resolved Date Menstrual bleeding problem 08/21/2017 0 03/05/2022 Family History Medical History Relation Name Comments No Known Problems Father COPD Maternal Grandfather Diabetes Maternal Grandfather Hypertension Maternal Grandfather Kidney failure Maternal Grandfather Hypertension Maternal Grandmother Heart murmur Mother Stroke Paternal Grandmother Relation Name Status Comments Brother Alive Father Alive Maternal Grandfather Alive Maternal Grandmother Alive Mother Alive Paternal Grandfather Paternal Grandmother Alive Sister Alive Social History Tobacco Use Types Packs/Day Years Used Date Smoking Tobacco: Never Smokeless Tobacco: Never Tobacco Cessation:Counseling Given: Not Answered Alcohol Use Standard Drinks/Week Comments No 0 (1 standard drink = 0.6 oz pur e alcohol) Childcare Answer Date Recorded Childcare Unknown 11/19/2018 Employment Answer Date Recorded Employment Unknown 11/19/2018 Hunger Screening Answer Date Recorded Within the past 12 months we worried whether our food would run out before we got money to buy more. Never True 07/18/2023 Within the past 12 months th e food we bought just didn't last and we didn't have money to get more. Never True 07/18/2023 Purpose - Life Answer Date Recorded Purpose and direction in life Unknown Estimated Date of Delivery Comme nts Yes 02/24/2024 Sex and Gender Information Value Date Recorded Sex Assigned at Not on file Legal Sex Female 10:51 AM EDT Gender Identity Not on file Sexual Orientation Not on file Last Filed Vital Signs Vital Sign Reading Time Taken Comments Blood Pressure 147/83 07/18/2023 8:45 AM EST Pulse 90 07/18/2023 8:45 AM EST Temperature 36.7 C (98 F) 07/18/2023 8:45 AM EST Respiratory Rate 20 07/18/2023 8:45 AM EST Oxygen Saturation 98% 07/18/2023 8:45 AM EST Inhaled Oxygen Concentration - - Weight 72.6 kg (160 lb) 07/18/2023 8:45 AM EST Height 167.6 cm (5' 6 ) 07/18/2023 8:45 AM EST Body Mass Index 25.82 07/18/2023 8:45 AM EST Body Mass Index Percentile 84.59% 07/18/2023 8:4 5 AM EST Growth Chart: CDC (Girls, 2- 20 Years) Plan of Treatment Health Maintenance Due Date Last Done Comments Chlamydia Screening 2004 Depression Screening 2016 Adult BMI Screening 07/18/2024 07/18/2023 Tobacco Screening 07/18/2024 07/18/2023 Influenza Vaccine 02/14/2025 DTaP,Tdap and Td Vaccines (7 - Td or Tdap) 02/05/2027 02/05/2017, 06/05/2009, 01/26/2007, Additional history exists Medical Devices Not on file Insurance ANTHEM ANTHEM MEDICAID ANTHEM ANTHEM MEDICAID Care Teams Resident Advisor Relationship Specialty Start Date End Date Haleigh Her APRN-MAXIMILIANO [address] [place] [address] PCP - General Family Medicine 11/27/22
--- OUTSIDE RECORDS SUMMARY | 2024-11-05 12:12 | XMS_ITS | Encounter Summary ---
Author Organization [facility] Address [address] [place] [address] Care Team Providers Care Ems Manager Name Role Phone Unavailable Primary Care Provider Unavailabl e Encounter Details Date Type Department Care Team (Late st Contact Info) Description 01/09/2024 Abstract [facility] OB 102 [facility] [phone] Mini Thorne LPN [address] [place] [phone] Social History Tobacco Use Types Packs/Day Years [...] Description 11/17/2024 1:00 PM EDT Routine [facility] OB [address] [facility] [place] [phone] Nelson Christiansen DO [address] [facility] [address] Ila Rueda, [facility]11 documented as of this encounter Visit Diagnoses Not on filedocumented in this encounter
--- OUTSIDE RECORDS SUMMARY | 2024-11-05 12:12 | XMS_ITS | Encounter Summary ---
Author Organization [facility] Address [address] [place] [address] Care Team Providers Care Pourer Buggy Ladle Name Role Phone Unavailable Primary Care Provider Unavailabl e Encounter Details Date Type Department Care Team (Late st Contact Info) Description 01/03/2024 Clinisync Result Encounter [facility]S External Department Unsolicited Willi Christiansen, DO [address] [place], [place] [id number] Social History Tobacco Use Types Packs/Day Years [...] PM EDT Routine [facility] [address] [facility] [place] [address] Willi Christiansen, DO [address] [place] [address] documented as of this encounter Procedures Procedure Name Priority Date/Time Associated Diagnosis Comments US OB BPP W NON-STRESS 01/03/2024 9:01 AM EDT documented in this encounter Results * US OB BPP W NON-STRESS (01/03/2024 9:01 AM EDT) Anatomical Region Laterality Modality Other 01/03/2024 9:01 AM EDT Narrative 01/03/2024 9:04 AM EDT [place] [id number] Ultrasound Report Signed Patient: SHAYLA MARTINEZ MR#: [id number] : 2005 Acct:[id number] Age/Sex: 18 / F ADM Date: Loc: [facility] 251-[address]: Willi Christiansen D.O. Ordering Physician: Willi Christiansen D.O. Date of Service: 01/03/24 Procedure(s): US OB BPP w non-stress Accession Number(s): [id number] cc: Willi Christiansen D.O.; Physician,Non-Staff Arin [place] [id number] Patient Name: SHAYLA MARTINEZ MRN: [id number] date: 2005 Sex: F Assigned Patient Location: [facility] Current Patient Location: [facility] Accession/Order Number: [id number] Exam Date: 01/03/2024 07:11 Report Date: 01/03/2024 09:01 At the request of: WILLI CHRISTIANSEN Procedure: US OB BPP w non-stress EXAM: US OB BPP w non-stress INDICATION: fall. COMPARISON: Same day obstetric ultrasound TECHNIQUE: Limited transabdominal obstetric ultrasound was performed. FINDINGS: Single intrauterine gestation. heart rate: 126 bpm RALEIGH: 16.2 cm, normal Biophysical profile: Amniotic fluid: 2 Breathin Movement: 2 Tone: 2 Total biophysical score: 8 out of 8 US/US OB BPP w non-stress IMPRESSION: 1. Single live intrauterine . 2. BPP of 8 out of 8 Electronically authenticated by: MARITZA HDEZ Date: 01/03/2024 09:01 Dictated By: Maritza Hdez M.D. Signed By: 01/03/24903 DD/ 0 TD/TT: Net Maker: Procedure Note Radiology, Radiologist, MD - 01/03/2024 [place] [address] Ultrasound Report Signed Patient: BRODIE MARTINEZ#: [id number] : 2005Acct:[id number] Age/Sex: 18 / FADM Date: Loc: [facility] 251-[address]: Willi Christiansen D.O. Ordering Physician: Willi Christiansen D.O. Date of Service: 01/03/24 Procedure(s): US OB BPP w non-stress Accession Number(s): [id number] cc: Willi Christiansen D.O.; Physician,Non-Staff Arin The [place] [id number] Patient Name: SHAYLA MARTINEZ MRN: [id number] date: 2005 Sex: F Assigned Patient Location: [facility] Current Patient Location: [facility] Accession/Order Number: [id number] Exam Date: 01/03/2024 07:11 Report Date: 01/03/2024 09:01 At the request of: WILLI CHRISTIANSEN Procedure: US OB BPP w non-stress EXAM: US OB BPP w non-stress INDICATION: fall. COMPARISON: Same day obstetric ultrasound TECHNIQUE: Limited transabdominal obstetric ultrasound was performed. FINDINGS: Single intrauterine gestation. heart rate: 126 bpm [place]: 16.2 cm, normal Biophysical profile: Amniotic fluid: 2 Breathin Movement: 2 Tone: 2 Total biophysical score: 8 out of 8 US/US OB BPP w non-stress IMPRESSION: 1. Single live intrauterine . 2. BPP of 8 out of 8 Electronically authenticated by: MARITZA HDEZ Date: 01/03/2024 09:01 Dictated By: Maritza Hdez M.D. Signed By:01/03/2404 DD/ 0 TD/TT: Net Maker: us Willi Christiansen DO [facility] Final Result documented in this encounter Visit Diagnoses Not on filedocumented in this encounter
--- OUTSIDE RECORDS SUMMARY | 2024-11-05 12:12 | XMS_ITS | Patient Health Record ---
Author Organization [email or web address] [facility] Address [address] [facility] [address] Care Team Providers Care Box Blank Machine Operator Name Role Phone Stefania Loving Primary Care Provider Reason For Referral No Information Problems No Known Problems Plan Of Treatment No Information Insurance Providers Payer Name Payer Address Payer Phone Subscriber Number Group Number Insured Name Patient Relationship to Insured Coverage Start Date Coverage End Date [employer] [address] [place] [address] [id number] KALYN MARTINEZ Self - [facility] [employer] [address] [place] [address] [id number] KALYN MARTINEZ Self - patient is the insured Medical (General) History Medical History History ICD Code LEVEL 1
--- OUTSIDE RECORDS SUMMARY | 2024-11-05 12:12 | XMS_ITS | Encounter Summary ---
Author Organization [facility] Address [address] [place] [address] Care Team Providers Care Scholastic Aptitude Test Grader Name Role Phone Unavailable Primary Care Provider Unavailabl e Encounter Details Date Type Department Care Team (Late st Contact Info) Description 01/03/2024 Clinisync Result Encounter [facility] External Department Unsolicited Willi Christiansen, DO [address] [place], [place] [phone] Social History Tobacco Use Types Packs/Day Years [...] PM EDT Routine [facility] BCP OB [address] [place] [address] Willi Christiansen, DO [address] [place] [address] documented as of this encounter Procedures Procedure Name Priority Date/Time Associated Diagnosis Comments US OB CERVICAL LENGTH 01/03/2024 8:37 AM EDT documented in this encounter Results * US OB CERVICAL LENGTH (01/03/2024 8:37 AM EDT) Anatomical Region Laterality Modality Other 01/03/2024 8:37 AM EDT Narrative 01/03/2024 8:40 AM EDT [address] [address] Ultrasound Report Signed Patient: SHAYLA MARTINEZ MR#: [id number] : 2005 Acct:[id number] Age/Sex: 18 / F ADM Date: Loc: [facility] 251-[address]: Willi Christiansen D.O. Ordering Physician: Willi Christiansen D.O. Date of Service: 01/03/24 Procedure(s): US OB cervical length Accession Number(s): [id number] cc: Willi Christiansen D.O.; Physician,Non-Staff Arin The [address] [address] Patient Name: SHAYLA MARTINEZ MRN: [facility]:[id number] date: 2005 Sex: F Assigned Patient Location: [facility] Current Patient Location: [facility] Accession/Order Number: [id number] Exam Date: 01/03/2024 07:11 Report Date: 01/03/2024 08:37 At the request of: WILLI CHRISTIANSEN Procedure: US OB cervical length EXAM: US OB cervical length, US OB placenta INDICATION: Fall. COMPARISON: None. TECHNIQUE: Limited obstetric ultrasound was performed. FINDINGS: Single intrauterine gestation in cephalic presentation [place]: 16.2 cm, normal Single deepest pocket: 5.1 cm Placenta location: Posterior. No evidence of placental abruption. heart rate: 126 bpm Cervical length: 3.5 cm, closed US/US OB cervical length IMPRESSION: 1. Single live intrauterine gestation. 2. Normal cervical length. 3. Posterior placenta. Electronically authenticated by: MARITZA HDEZ Date: 01/03/2024 08:37 Dictated By: Maritza Hdez M.D. Signed By: 01/03/24 0840 DD/ 0837 TD/TT: Dispensing Operator: Procedure Note Radiology, Radiologist, MD - 01/03/2024 The [place] [id number] Ultrasound Report Signed Patient: BRODIE MARTINEZ#: [id number] : 2005Acct:[id number] Age/Sex: 18 / FADM Date: Loc: [facility] 251-[address]: Willi Christiansen D.O. Ordering Physician: Willi Christiansen D.O. Date of Service: 01/03/24 Procedure(s): US OB cervical length Accession Number(s): [id number] cc: Willi Christiansen D.O.; Physician,Non-Staff Arin The [place] [address] Patient Name: SHAYLA MARTINEZ MRN: [id number] date: 2005 Sex: F Assigned Patient Location: [facility] Current Patient Location: [facility] Accession/Order Number: [id number] Exam Date: 01/03/2024 07:11 Report Date: 01/03/2024 08:37 At the request of: WILLI CHRISTIANSEN Procedure: US OB cervical length EXAM: US OB cervical length, US OB placenta INDICATION: Fall. COMPARISON: None. TECHNIQUE: Limited obstetric ultrasound was performed. FINDINGS: Single intrauterine gestation in cephalic presentation [place]: 16.2 cm, normal Single deepest pocket: 5.1 cm Placenta location: Posterior. No evidence of placental abruption. heart rate: 126 bpm Cervical length: 3.5 cm, closed US/US OB cervical length IMPRESSION: 1. Single live intrauterine gestation. 2. Normal cervical length. 3. Posterior placenta. Electronically authenticated by: MARITZA DHEZ Date: 01/03/2024 08:37 Dictated By: Maritza Hdez M.D. Signed By:01/03/24 0840 DD/ TD/TT: Dispensing Operator: us Willi Christiansen DO [facility] Final Result documented in this encounter Visit Diagnoses Not on filedocumented in this encounter
--- OUTSIDE RECORDS SUMMARY | 2024-11-05 12:12 | XMS_ITS | Encounter Summary ---
Author Organization [facility] Address [address] [place] [address] Care Team Providers Care Strategic Debriefing Officer Name Role Phone Unavailable Primary Care Provider Unavailabl e Encounter Details Date Type Department Care Team (Late st Contact Info) Description 01/03/2024 Clinisync Result Encounter [facility] External Department Unsolicited Willi Christiansen, DO [address] [place] [address] Social History Tobacco Use Types Packs/Day Years [...] PM EDT Routine [facility] BCP OB [address] [place] [address] Willi Christiansen, DO [address] [place] [address] documented as of this encounter Procedures Procedure Name Priority Date/Time Associated Diagnosis Comments XR CHEST 2V 01/03/2024 11:22 AM EDT documented in this encounter Results * XR CHEST 2V (01/03/2024 11:22 AM EDT) Anatomical Region Laterality Modality Other 01/03/2024 11:2 2 AM EDT Narrative 01/03/2024 11:25 AM EDT [place] [id number] XRay Report Signed Patient: SHAYLA MARTINEZ MR#: [id number] : 2005 Acct:[id number] Age/Sex: 18 / F ADM Date: Loc: [facility] 251-[address]: Willi Christiansen D.O. Ordering Physician: Willi Christiansen D.O. Date of Service: 01/03/24 Procedure(s): XR chest 2V Accession Number(s): [id number] cc: Willi Christiansen D.O.; Physician,Non-Staff Arin [place] [id number] Patient Name: SHAYLA MARTINEZ MRN: [id number] date: 2005 Sex: F Assigned Patient Location: [facility] Current Patient Location: [facility] Accession/Order Number: [id number] Exam Date: 01/03/2024 10:37 Report Date: 01/03/2024 11:22 At the request of: WILLI CHRISTIANESN Procedure: XR chest 2V EXAM: XR chest 2V INDICATION: Fall. COMPARISON: None. TECHNIQUE: Two views of the chest FINDINGS: Normal cardiomediastinal contours. No acute infiltrative process. No pleural effusion or pneumothorax. No acute osseous abnormality. XR/XR chest 2V IMPRESSION: No acute cardiopulmonary process. Electronically authenticated by: MARITZA HDEZ Date: 01/03/2024 11:22 Dictated By: Maritza Hdez M.D. Signed By: 01/03/24 1125 DD/ 1122 TD/TT: [employer] Laboratory Assistant: Procedure Note Radiology, Radiologist, MD - 01/03/[address] [address] XRay Report Signed Patient: BETHANIE MARTINEZR#: [id number] : 2005Acct:[id number] Age/Sex: 18 / FADM Date: Loc: [facility] 251-[address]: Willi Christiansen D.O. Ordering Physician: Willi Christiansen D.O. Date of Service: 01/03/24 Procedure(s): XR chest 2V Accession Number(s): [id number] cc: Willi Christiansen D.O.; Physician,Non-Staff Arin [place] [id number] Patient Name: SHAYLA MARTINEZ MRN: [id number] date: 2005 Sex: F Assigned Patient Location: [facility] Current Patient Location: [facility] Accession/Order Number: [id number] Exam Date: 01/03/2024 10:37 Report Date: 01/03/2024 11:22 At the request of: WILLI CHRISTIANSEN Procedure: XR chest 2V EXAM: XR chest 2V INDICATION: Fall. COMPARISON: None. TECHNIQUE: Two views of the chest FINDINGS: Normal cardiomediastinal contours. No acute infiltrative process. Nopleural effusion or pneumothorax. No acute osseous abnormality. XR/XR chest 2V IMPRESSION: No acute cardiopulmonary process. Electronically authenticated by: MARITZA HDEZ Date: 01/03/2024 11:22 Dictated By: Maritza Hdez M.D. Signed By:01/03/24 1125 DD/ 1122 TD/TT: [employer] Laboratory Assistant: Willi Christiansen DO [facility] Final Result documented in this encounter Visit Diagnoses Not on filedocumented in this encounter
--- OUTSIDE RECORDS SUMMARY | 2024-11-05 12:12 | XMS_ITS | Encounter Summary ---
Author Organization [facility] Address [address] [place] [address] Care Team Providers Care Honey Grader And Blender Name Role Phone Unavailable Primary Care Provider Unavailabl e Encounter Details Date Type Department Care Team (Late st Contact Info) Description 07/05/2024 Abstract [facility] OB [address] [place] [phone] Nelson Christiansen DO [facility] [address] [place], [facility]11 Social History Tobacco Use Types Packs/Day [...] Routine [facility] BCP OB [address] [place] [address] Nelson Christiansen DO [facility] [address] [place], [facility]11 documented as of this encounter Visit Diagnoses Not on filedocumented in this encounter
--- OUTSIDE RECORDS SUMMARY | 2024-11-05 12:12 | XMS_ITS | Encounter Summary ---
Author Organization [facility] Address [address] [place] [address] Care Team Providers Care Makeup Artistry Instructor Name Role Phone Unavailable Primary Care Provider Unavailabl e Encounter Details Date Type Department Care Team (Late st Contact Info) Description 10/28/2024 Telephone [facility] BCP OB [address] [facility] [place] [address] Tabitha Garduno MA Social History Tobacco Use Types Packs/Day Years [...] as of this encounter Miscellaneous Notes * Telephone Encounter - Tabitha Garduno MA - 10/28/2024 1:03 PM EDT Hi, this is Shayla Corado calling. I am a patient of Dr. Zuluaga. I have missed a lot of my appointments due to me still needing to get my car fixed. I have been experiencing a lot of pain to the point where I can not even walk at points. It is in my back. I keep Getting a sharp pain that goes from like my mid back, like the right side, all the way down my legs, it will make my leg really numb and it will not go away. I feel like it is getting worser. It gets extremely worse. When I lay down.I have tried stretching, but like it is getting to the point where It hurts to even picket labor union my own daughter. I was just wondering if I can set up an emergency appointment. I would have to get a ride. But I think I really just need to get an appointment with Dr. Christiansen or even meet him at [facility] to just figure out what is going on because I just feel like this is not my siatic nerve, I feel like it is more it feels like in my right side where the back of your ribs would be, and I feel like I am getting stabbed like it hurts for every single thing that I do if you could Give yonathan call back at [phone]. Thank you so much. Attempted to call pt - No answer Unable to leave message as voice mailbox is not set up yet documented in this encounter Plan of Treatment Upcoming Encounters Date Type Department Care Team (Late st Contact Info) Description 11/17/2024 1:00 PM EDT Routine [facility] BCP OB [address] [facility] [place] [address] Nelson Christiansen, DO [address] [place], [place] [id number] documented as of this encounter Visit Diagnoses Not on filedocumented in this encounter
--- OUTSIDE RECORDS SUMMARY | 2024-11-05 12:12 | XMS_ITS | Encounter Summary ---
Author Organization [facility] Address [address] [place] [address] Care Team Providers Care Materials Coordinator Name Role Phone Unavailable Primary Care Provider Unavailabl e Encounter Details Date Type Department Care Team (Late st Contact Info) Description 11/03/2024 Clinisync Result Encounter NOMS External Department Unsolicited Willi Christiansen, DO [address] [place] [address] Social History Tobacco Use Types Packs/Day Years [...] Routine [facility] BCP OB [address] [place] [address] Willi Christiansen DO [address] [place], [place] [address] documented as of this encounter Procedures Procedure Name Priority Date/Time Associated Diagnosis Comments US OB GROWTH 11/03/2024 5:05 PM EDT TRANSFERRIN Routine 11/03/2024 4:53 PM EDT MLR HEMOGLOBIN A1C Routine 11/03/2024 4: 53 PM EDT [facility] FERRITIN Routine 11/03/2024 4:53 PM EDT ALL CBC WITH AUTO DIFF Routine 11/03/2024 4:53 PM EDT documented in this encounter Results * US OB GROWTH (11/03/2024 5:05 PM EDT) Anatomical Region Laterality Modality Other 11/03/2024 5:05 PM EDT Narrative 11/03/2024 5:08 [place] [address] Ultrasound Report Signed Patient: SHAYLA MARTINEZ MR#: [id number] : 2005 Acct:[id number] Age/Sex: 18 / F ADM Date: 11/03/24 Loc: US Attending Dr: Kristina Echavarria Ordering Physician: Willi Christiansen D.O. Date of Service: 11/03/24 Procedure(s): US OB growth Accession Number(s): [id number] cc: Willi Christiansen D.O.; Physician,Non-Staff M.DElliott The [place] [address] Patient Name: SHAYLA MARTINEZ MRN: [id number] date: 2005 Sex: F Assigned Patient Location: US Current Patient Location: US Accession/Order Number: [id number] Exam Date: 11/03/2024 17:00 Report Date: 11/03/2024 [...] Ladd M.D. 11/03/2024 5:05 PM Dictation Location: Posterous Electronically authenticated by: [id number] Y Date: 11/03/2024 17:05 Dictated By: Froy Ladd D.O. Signed By: 11/03/241707 DD/ 04 TD/TT: Anvilsmith: Procedure Note Radiology, Radiologist, MD - 11/03/2024 [place] [address] Ultrasound Report Signed Patient: BRODIE MARTINEZ#: [id number] : 2005Acct:[id number] Age/Sex: Date: 11/03/24 Loc: US Attending Dr: Kristina Echavarria Ordering Physician: Willi Christiansen D.O. Date of Service: 11/03/24 Procedure(s): US OB growth Accession Number(s): [id number] cc: Willi Christiansen D.O.; Physician,Non-Staff Arin The [place] [address] Patient Name: SHAYLA MARTINEZ MRN: [id number] date: 2005 Sex: F Assigned Patient Location: US Current Patient Location: US Accession/Order Number: [id number] Exam Date: 11/03/2024 17:00 Report Date: 11/03/2024 [...] Ladd M.D. 11/03/2024 5:05 PM Dictation Location: [facility] Electronically authenticated by: [id number] Y Date: 7:05 Dictated By: Froy Ladd D.O. Signed By:11/03/241707 DD/ 04 TD/TT: Anvilsmith: us Willi Christiansen DO [facility] Final Result * (ABNORMAL) TRANSFERRIN (11/03/2024 4:53 PM EDT) Pathologist [facility] TRANSFERRIN 470(A) 192 - 364 mg/dL TB Comment: Performed at: [address] [id number] Chemistry Quality Control Technician: Ez Overton PhD, Phone: [phone] 11/03/2024 4:53 PM EDT 11/03/2024 4:56 PM EDT Narrative [facility] - 11/05/2024 5:07 AM EDT Kristina RHODES LAB BLOOD ORDERABLES Final Resul t [facility] * MLR HEMOGLOBIN A1C (11/03/2024 4:53 PM EDT) GLYCOHEMOGLOBIN A1C 5.6 4.5 - 6.2 % TBH Comment: ADA RECOMMENDED LIMIT 4.0 - 6.0 ADA THERAPEUTIC TARGET < 7.0 ACTION SUGGESTED > 7.0 ESTIMATED AVERAGE GLUCOSE 114 mg/dL [facility]H 11/03/2024 4:53 PM EDT 11/03/2024 4:56 PM EDT Narrative [facility] - 11/03/2024 6:28 PM EDT Kristina LANDAVERDEISYJUAN Final Result Performing Organization Address City/[facility]/ZIP Co de Phone Number [facility] * (ABNORMAL) [facility] FERRITIN (11/03/2024 4:53 PM EDT) FERRITIN 5.0(L) 8.0 - 252.0 ng/mL [facility] 11/03/2024 4:53 PM EDT 11/03/2024 4:56 PM EDT Narrative [facility] - 11/03/2024 6:28 PM EDT Kristina WARE Final Result Performing Organization Address [facility] de Phone Number [facility] * (ABNORMAL) ALL CBC WITH AUTO DIFF (11/03/2024 4:53 PM EDT) Pathologist [facility] TB WBC 10.5 4.0 - 11.0 10 3/uL TBH TBH RBC 3.81(L) 4.20 - 5.40 10 6/uL TBH TBH HGB 10.0(L) 12.0 - 16.0 g/dL TBH TB HCT 31.5(L) 36.0 - 48.0 % TBH [...] Narrative [facility] - 11/03/2024 5:46 PM EDT us Kristina RHODES [facility] Final Result [facility] documented in this encounter Visit Diagnoses Not on filedocumented in this encounter
--- OUTSIDE RECORDS SUMMARY | 2024-11-05 12:12 | XMS_ITS | Encounter Summary ---
Author Organization [facility] Address [address] [place] [address] Care Team Providers Care Machine Tool Rebuilder Name Role Phone Unavailable Primary Care Provider Unavailabl e Encounter Details Date Type Department Care Team (Late st Contact Info) Description 01/26/[address] [facility] [address] [place] [phone] Nelson Christiansen [facility] [address] [place], [facility]11 Social History Tobacco Use Types Packs/Day [...] Description 11/17/2024 1:00 PM EDT Routine [facility] OB [address] [place] [address] Nelson Christiansen [facility] [address] [place], [facility]11 documented as of this encounter Visit Diagnoses Not on filedocumented in this encounter
--- OUTSIDE RECORDS SUMMARY | 2024-11-05 12:12 | XMS_ITS | Encounter Summary ---
Author Organization [facility] Address [address] [place] [address] Care Team Providers Care Recovery Assistant Name Role Phone Unavailable Primary Care Provider Unavailabl e Encounter Details Date Type Department Care Team (Late st Contact Info) Description 02/12/[address] [facility] [address] [place] [address] [facility] [address] [place], [facility]11 Social History Tobacco Use Types Packs/Day Years [...] Description 11/17/2024 1:00 PM EDT Routine [facility]S [facility] OB [address] [place] [address] [facility] [address], [facility]11 documented as of this encounter Visit Diagnoses Not on filedocumented in this encounter
--- OUTSIDE RECORDS SUMMARY | 2024-11-05 12:13 | XMS_ITS | Encounter Summary ---
Author Organization [facility] Address [address] [place] [address] Care Team Providers Care Debrander Name Role Phone Unavailable Primary Care Provider Unavailabl e Encounter Details Date Type Department Care Team (Late st Contact Info) Description 11/05/2023 Clinisync Result Encounter [facility] External Department Unsolicited Willi Christiansen, DO [facility] [place] [place], [place] [id number] Social History Tobacco Use Types Packs/Day Years [...] EDT Routine [facility] [address] [facility] [address] Willi Christiansen DO [address] [place] [address] documented as of this encounter Procedures Procedure Name Priority Date/Time Associated Diagnosis Comments US OB PLACENTA 11/05/2023 1:20 PM EDT documented in this encounter Results * US OB PLACENTA (11/05/2023 1:20 PM EDT) Anatomical Region Laterality Modality Other 11/05/2023 1:20 PM EDT Narrative 11/05/2023 1:23 PM EDT [address] [address] Ultrasound Report Signed Patient: SHAYLA MARTINEZ MR#: [id number] : 2005 Acct:[id number] Age/Sex: 17 / F ADM Date: 11/05/23 Loc: [facility] Attending Dr: Willi Christiansen D.O. Ordering Physician: Willi Christiansen D.O. Date of Service: 11/05/23 Procedure(s): US OB placenta Accession Number(s): [id number] cc: Willi Christiansen D.O.; Physician,Non-Staff Arin [address] [address] Patient Name: SHAYLA MARTINEZ MRN: [facility]:[id number] date: 2005 Sex: F Assigned Patient Location: [facility] Current Patient Location: [facility] Accession/Order Number: [id number] Exam Date: 11/05/2023 11:04 Report Date: 11/05/2023 13:20 At the request of: WILLI CHRISTIANSEN Procedure: US OB placenta EXAM: US OB placenta, US OB cervical length HISTORY: LOW LYING PLACENTA COMPARISON: 10/20/2023. TECHNIQUE: Transabdominal and transvaginal images FINDINGS: The placenta is posterior. Grade 0. No intraplacental or retroplacental echogenic abnormality. The placental edge is 1.3 cm from the internal os Heart rate: 153 beats minute Cervix: 5.7 cm, closed Other: No evidence of a cleft lip on the current exam US/US OB placenta IMPRESSION: Marginal placenta previa No evidence of a cleft lip Closed cervix measuring 5.7 cm in length Electronically authenticated by: SADIQ VILLA Date: 11/05/2023 13:20 Dictated By: Sadiq Villa M.D. Signed By: 11/05/23 1323 DD/ 1320 TD/TT: Transmission Tester: Procedure Note Radiology, Radiologist, MD - 11/05/2023 The [place] [id number] Ultrasound Report Signed Patient: BRODIE MARTINEZ#: [id number] : 2005Acct:[id number] Age/Sex: 17 / FADM Date: 11/05/23 Loc: [facility] Attending Dr: Willi Christiansen D.O. Ordering Physician: Willi Christiansen D.O. Date of Service: 11/05/23 Procedure(s): US OB placenta Accession Number(s): [id number] cc: Willi Christiansen D.O.; Physician,Non-Staff Arin The [place] [address] Patient Name: SHAYLA MARTINEZ MRN: [facility]:[id number] date: 2005 Sex: F Assigned Patient Location: [facility] Current Patient Location: [facility] Accession/Order Number: [id number] Exam Date: 11/05/2023 11:04 Report Date: 11/05/2023 13:20 At the request of: WILLI CHRISTIANSEN Procedure: US OB placenta EXAM: US OB placenta, US OB cervical length HISTORY: LOW LYING PLACENTA COMPARISON: 10/20/2023. TECHNIQUE: Transabdominal and transvaginal images FINDINGS: The placenta is posterior. Grade 0. No intraplacental or retroplacental echogenic abnormality. The placental edge is 1.3 cm from the internal os Heart rate: 153 beats minute Cervix: 5.7 cm, closed Other: No evidence of a cleft lip on the current exam US/US OB placenta IMPRESSION: Marginal placenta previa No evidence of a cleft lip Closed cervix measuring 5.7 cm in length Electronically authenticated by: SADIQ VILLA Date: 11/05/2023 13:20 Dictated By: Sadiq Villa M.D. Signed By:11/05/23 1324 DD/ 1320 TD/TT: Transmission Tester: us Willi Christiansen DO [facility] Final Result documented in this encounter Visit Diagnoses Not on filedocumented in this encounter
--- OUTSIDE RECORDS SUMMARY | 2024-11-05 12:13 | XMS_ITS | Encounter Summary ---
Author Organization [facility] Address [address] [place] [address] Care Team Providers Care Museum Service Scheduler Name Role Phone Unavailable Primary Care Provider Unavailabl e Encounter Details Date Type Department Care Team (Late st Contact Info) Description 10/21/2023 Clinisync Result Encounter [facility] External Department Unsolicited Willi Christiansen, DO [facility] [place] [address] Social History Tobacco Use Types Packs/Day Years [...] Description 11/17/2024 1:00 PM EDT Routine [facility] OB [address] [place] [address] Willi Christiansen DO [address] [place] [address] documented as of this encounter Procedures Procedure Name Priority Date/Time Associated Diagnosis Comments US OB ANATOMY 10/21/2023 8:27 AM EDT documented in this encounter Results * US OB ANATOMY (10/21/2023 8:27 AM EDT) Anatomical Region Laterality Modality Other 10/21/2023 8:27 AM EDT Narrative 10/21/2023 8:30 AM EDT [address] [address] Ultrasound Report Signed Patient: SHAYLA MARTINEZ MR#: [id number] : 2005 Acct:[id number] Age/Sex: 17 / F ADM Date: 10/20/23 Loc: US Attending Dr: Willi Christiansen D.O. Ordering Physician: Willi Christiansen D.O. Date of Service: 10/20/23 Procedure(s): US OB anatomy Accession Number(s): [id number] cc: Willi Christiansen D.O.; Physician,Non-Staff MFrancesca [address] [address] Patient Name: SHAYLA MARTINEZ MRN: [facility]:[id number] date: 2005 Sex: F Assigned Patient Location: US Current Patient Location: Accession/Order Number: [id number] Exam Date: 10/20/2023 15:00 Report Date: 10/21/2023 08:27 At the request of: WILLI CHRISTIANSEN Procedure: US OB anatomy EXAMINATION: US OB anatomy, US OB cervical length HISTORY: Screening For Anatomic Survey Z36.69 COMPARISON: Ultrasound OB transvaginal 07/25/2023 TECHNIQUE: Transabdominal sonographic examination was performed for obstetrical and evaluation. FINDINGS: Number: 1 Heart Rate: 154.3 bpm H.B. /min Amniotic Fluid Volume: Subjectively normal Placental Location: POSTERIOR with lower margin 0.9 cm from os. Cervix Length: 3.9 cm, closed. ANATOMY: Normal Structures -cerebellum, choroid plexus, cisterna magna, lateral cerebral ventricles, orbits, midline falx, four-chamber heart, RVOT, LVOT, stomach, kidneys, bladder, umbilical cord insertion into abdomen, three-vessel cord, cervical spine, thoracic spine, lumbar spine, sacral spine, right upper extremity, left upper extremity, right lower extremity, left lower extremity. SUBOPTIMALLY SEEN: Hard palate ABNORMALITIES: None BIOMETRY: BPD: 5.3 cm 22 weeks 0 days HC: 20.1 cm 22 weeks 2 days AC: 16.3 cm 21 weeks 2 days FL: 3.7 cm 21 weeks 4 days EFW:432.7 grams; 29% FL/AC: 22.4 FL/BPD: 69.1 HC/AC: 1.2 GESTATIONAL AGE: Age by EDC: 21 weeks 6 days CHENTE by EDC: 02/24/2024 Age by current US: 21 weeks 6 days CHENTE by current US: 02/24/2024 US/US OB anatomy IMPRESSION: 1. Single live intrauterine with growth detailed above. 2. Suboptimal visualization of the hard palate with questionable cleft versus artifact. Follow-up recommended. 3. Low-lying posterior placenta. Electronically authenticated by: SEFERINO SOLANO Date: 10/21/2023 08:27 Dictated By: Seferino Solano M.D. Signed By: 10/21/23829 DD/ 6 TD/TT: Customer Experience Strategist: Procedure Note Radiology, Radiologist, MD - 10/21/2023 [place] [address] Ultrasound Report Signed Patient: FRAN MARTINEZR#: [id number] : 2005Acct:[id number] Age/Sex: 17 / FADM Date: 10/20/23 Loc: US Attending Dr: Willi Christiansen D.O. Ordering Physician: Willi Christiansen D.O. Date of Service: 10/20/23 Procedure(s): US OB anatomy Accession Number(s): [id number] cc: Willi Christiansen D.O.; Physician,Non-Staff Arin The [address] [address] Patient Name: SHAYLA MARTINEZ MRN: [id number] date: 2005 Sex: F Assigned Patient Location: US Current Patient Location: Accession/Order Number: [id number] Exam Date: 10/20/2023 15:00 Report Date: 10/21/2023 08:27 At the request of: WILLI CHRISTIANSEN Procedure: US OB anatomy EXAMINATION: US OB anatomy, US OB cervical length HISTORY: Screening For Anatomic Survey Z36.69 COMPARISON: Ultrasound OB transvaginal 07/25/2023 TECHNIQUE: Transabdominal sonographic examination was performed for obstetrical and evaluation. FINDINGS: Number: 1 Heart Rate: 154.3 bpm H.B. /min Amniotic Fluid Volume: Subjectively normal Placental Location: POSTERIOR with lower margin 0.9 cm from os. Cervix Length: 3.9 cm, closed. ANATOMY: Normal Structures -cerebellum, choroid plexus, cisterna magna, lateral cerebral ventricles, orbits, midline falx, four-chamber heart, RVOT, LVOT, stomach, kidneys, bladder, umbilical cord insertion into abdomen,three-vessel cord, cervical spine, thoracic spine, lumbar spine, sacral spine, rightupper extremity, left upper extremity, right lower extremity, left lowerextremity. SUBOPTIMALLY SEEN: Hard palate ABNORMALITIES: None BIOMETRY: BPD: 5.3 cm 22 weeks 0 days HC: 20.1 cm 22 weeks 2 days AC: 16.3 cm 21 weeks 2 days FL: 3.7 cm 21 weeks 4 days EFW:432.7 grams; 29% FL/AC: 22.4 FL/BPD: 69.1 HC/AC: 1.2 GESTATIONAL AGE: Age by EDC: 21 weeks 6 days CHENTE by EDC: 02/24/2024 Age by current US: 21 weeks 6 days CHENTE by current US: 02/24/2024 US/US OB anatomy IMPRESSION: 1. Single live intrauterine with growth detailed above. 2. Suboptimal visualization of the hard palate with questionable cleftversus artifact. Follow-up recommended. 3. Low-lying posterior placenta. Electronically authenticated by: SEFERINO SOLANO Date: 10/21/2023 08:27 Dictated By: Seferino Solano M.D. Signed By:10/21/23829 DD/ 6 TD/TT: Customer Experience Strategist: Willi Christiansen DO [facility] Final Result documented in this encounter Visit Diagnoses Not on filedocumented in this encounter
--- OUTSIDE RECORDS SUMMARY | 2024-11-05 12:13 | XMS_ITS | Encounter Summary ---
Author Organization [facility] Address [address] [place] [address] Care Team Providers Care Lead Painter Name Role Phone Unavailable Primary Care Provider Unavailabl e Encounter Details Date Type Department Care Team (Late st Contact Info) Description 10/21/2023 Clinisync Result Encounter [facility] External Department Unsolicited Willi Christiansen, DO [address] [place], [place] [phone] Social History Tobacco Use Types Packs/Day Years [...] PM EDT Routine [facility] BCP OB [address] [place] [address] Willi Christiansen, DO [address] [place] [address] documented as of this encounter Procedures Procedure Name Priority Date/Time Associated Diagnosis Comments US OB CERVICAL LENGTH 10/21/2023 8:27 AM EDT documented in this encounter Results * US OB CERVICAL LENGTH (10/21/2023 8:27 AM EDT) Anatomical Region Laterality Modality Other 10/21/2023 8:27 AM EDT Narrative 10/21/2023 8:30 AM EDT [address] [address] Ultrasound Report Signed Patient: SHAYLA MARTINEZ MR#: [id number] : 2005 Acct:[id number] Age/Sex: 17 / F ADM Date: 10/20/23 Loc: US Attending Dr: Willi Christiansen D.O. Ordering Physician: Willi Christiansen D.O. Date of Service: 10/20/23 Procedure(s): US OB cervical length Accession Number(s): [id number] cc: Willi Christiansen D.O.; Physician,Non-Staff Arin [address] [address] Patient Name: SHAYLA MARTINEZ MRN: [facility]:[id number] date: 2005 Sex: F Assigned Patient Location: US Current Patient Location: Accession/Order Number: [id number] Exam Date: 10/20/2023 15:00 Report Date: 10/21/2023 08:27 At the request of: WILLI CHRISTIANSEN Procedure: US OB cervical length EXAMINATION: US OB anatomy, US OB cervical [...] CHENTE by current US: 02/24/2024 US/US OB cervical length IMPRESSION: 1. Single live intrauterine with growth detailed above. 2. Suboptimal visualization of the hard palate with questionable cleft versus artifact. Follow-up recommended. 3. Low-lying posterior placenta. Electronically authenticated by: SEFERINO SOLANO Date: 10/21/2023 08:27 Dictated By: Seferino Solano M.D. Signed By: 10/21/23829 DD/ 6 TD/TT: Steam Table Attendant: Procedure Note Radiology, Radiologist, MD - 10/21/2023 [place] [address] Ultrasound Report Signed Patient: BRODIE MARTINEZ#: [id number] : 2005Acct:[id number] Age/Sex: 17 / FADM Date: 10/20/23 Loc: US Attending Dr: Willi Christiansen D.O. Ordering Physician: Willi Christiansen D.O. Date of Service: 10/20/23 Procedure(s): US OB cervical length Accession Number(s): [id number] cc: Willi Christiansen D.O.; Physician,Non-Staff Arin The [address] [address] Patient Name: SHAYLA MARTINEZ MRN: [id number] date: 2005 Sex: F Assigned Patient Location: US Current Patient Location: Accession/Order Number: [id number] Exam Date: 10/20/2023 15:00 Report Date: 10/21/2023 08:27 At the request of: WILLI CHRISTIANSEN Procedure: US OB cervical length EXAMINATION: US OB anatomy, US OB cervical [...] CHENTE by current US: 02/24/2024 US/US OB cervical length IMPRESSION: 1. Single live intrauterine with growth detailed above. 2. Suboptimal visualization of the hard palate with questionable cleftversus artifact. Follow-up recommended. 3. Low-lying posterior placenta. Electronically authenticated by: SEFERINO SOLANO Date: 10/21/2023 08:27 Dictated By: Seferino Solano M.D. Signed By:10/21/23829 DD/ 6 TD/TT: Steam Table Attendant: us Willi Christiansen DO [facility] Final Result documented in this encounter Visit Diagnoses Not on filedocumented in this encounter
--- OUTSIDE RECORDS SUMMARY | 2024-11-05 12:13 | XMS_ITS ---
Author Organization [facility] [employer] c[employer] (ClinicalSummary Clone) Address Unknown Care Team Providers Care Base Ply Hand Name Role Phone Unavailable Primary Care Physician Unavailab le Results * [UNITY] ANEUPLOIDY NIPT Performed by: [employer] Component Value Range Date Fraction 6.8% 07/03/2024 06 :29 am [facility] Sex Chromosome Aneuploidy NOT DETECTED 06:29 am [facility] Monosomy X LOW RISK <1 in 10,000 2024 06:29 am [facility] Trisomy 13 LOW RISK <1 in 10,000 2024 06:29 am [facility] Trisomy 18 LOW RISK <1 in 10,000 2024 06:29 am [place] Trisomy 21 LOW RISK <1 in 10,000 2024 06:29 am [facility] Sex MALE 07/03/2024 06:2 9 am [facility] Gestation KIM 07/03/19 25 06:29 am [facility] For detailed report, see PDF See PDF 07/03/2024 06:29 am [facility] 07/03/2024 06:2 9 am [facility] Social History Observation Value Start Date End Date
--- OUTSIDE RECORDS SUMMARY | 2024-11-05 12:13 | XMS_ITS | Encounter Summary ---
Author Organization [facility] Address [address] [place] [address] Care Team Providers Care Director Of Rehabilitative Services Name Role Phone Unavailable Primary Care Provider Unavailabl e Encounter Details Date Type Department Care Team (Late st Contact Info) Description 11/05/2023 Clinisync Result Encounter [facility] External Department Unsolicited Willi Christiansen, DO [address] [place], [place] [id number] Social History Tobacco Use Types Packs/Day Years [...] Encounter Note - Mini Thorne LPN - 11/05/2023 1:25 PM EDT Attempted to call pt but she did not answer. Detailed voicemail eft for pt to call office back documented in this encounter Plan of Treatment Upcoming Encounters Date Type Department Care Team (Late st Contact Info) Description 11/17/2024 1:00 PM EDT Routine [facility] BCP OB [address] [place] [address] Willi Christiansen, DO [address] [place] [address] [phone] (work) documented as of this encounter Procedures Procedure Name Priority Date/Time Associated Diagnosis Comments US OB CERVICAL LENGTH 11/05/2023 1:20 PM EDT documented in this encounter Results * US OB CERVICAL LENGTH (11/05/2023 1:20 PM EDT) Anatomical Region Laterality Modality Other 11/05/2023 1:20 PM EDT Narrative 11/05/2023 1:23 PM EDT [place] [id number] Ultrasound Report Signed Patient: SHAYLA MARTINEZ MR#: [id number] : 2005 Acct:[id number] Age/Sex: 17 / F ADM Date: 11/05/23 Loc: NOMS Attending Dr: Willi Christiansen D.O. Ordering Physician: Willi Christiansen D.O. Date of Service: 11/05/23 Procedure(s): US OB cervical length Accession Number(s): [id number] cc: Willi Christiansen D.O.; Physician,Non-Staff M.Jorden [address] [address] Patient Name: SHAYLA MARTINEZ MRN: [id number] date: 2005 Sex: F Assigned Patient Location: [facility] Current Patient Location: [facility] Accession/Order Number: [id number] Exam Date: 11/05/2023 11:05 Report Date: 11/05/2023 13:20 At the request of: WILLI CHRISTIANSEN Procedure: US OB cervical length EXAM: US OB placenta, US OB cervical [...] lip on the current exam US/US OB cervical length IMPRESSION: Marginal placenta previa No evidence of a cleft lip Closed cervix measuring 5.7 cm in length Electronically authenticated by: SADIQ VILLA Date: 11/05/2023 13:20 Dictated By: Sadiq Villa M.D. Signed By: 11/05/23 1323 DD/ 1320 TD/TT: Compressor Station Operator: Procedure Note Radiology, Radiologist, MD - 11/05/2023 [place] [address] Ultrasound Report Signed Patient: BRODIE MARTINEZ#: [id number] : 2005Acct:[id number] Age/Sex: 17 / FADM Date: 11/05/23 Loc: NOMS Attending Dr: Willi Christiansen D.O. Ordering Physician: Willi Christiansen D.O. Date of Service: 11/05/23 Procedure(s): US OB cervical length Accession Number(s): [id number] cc: Willi Christiansen D.O.; Physician,Non-Staff Arin The [place] [address] Patient Name: SHAYLA MARTINEZ MRN: [facility]:[id number] date: 2005 Sex: F Assigned Patient Location: [facility] Current Patient Location: [facility] Accession/Order Number: [id number] Exam Date: 11/05/2023 11:05 Report Date: 11/05/2023 13:20 At the request of: WILLI CHRISTIANSEN Procedure: US OB cervical length EXAM: US OB placenta, US OB cervical [...] lip on the current exam US/US OB cervical length IMPRESSION: Marginal placenta previa No evidence of a cleft lip Closed cervix measuring 5.7 cm in length Electronically authenticated by: SADIQ VILLA Date: 11/05/2023 13:20 Dictated By: Sadiq Villa M.D. Signed By:11/05/23 1323 DD/ 1320 TD/TT: Compressor Station Operator: us Willi Christiansen DO [facility] Final Result documented in this encounter Visit Diagnoses Not on filedocumented in this encounter
--- NOTE | 2024-11-05 12:23 | US_ITS ---
[address] [address] Patient Name: KALYN MARTINEZ MRN: [facility]:[id number] date: 2005 Sex: F Assigned Patient Location: [facility] Current Patient Location: [facility] Accession/Order Number: [id number] Exam Date: 11/05/2024 14:48 Report Date: 11/05/2024 14:54 At the request of: WILLI ZAMBRANO DO Procedure: US OB cervical length US OB placenta, US OB BPP w non-stress, US OB cervical length 11/05/2024 1:19 PM SIGNS AND SYMPTOMS: ^Abd. pain spotting, history of nuchal cord COMPARISON: 11/03/2024. TECHNIQUE: Sonography of the gravid uterus. FINDINGS: An intrauterine is identified. The fetus has an estimated gestational age of 30 weeks and 5 days. A heart rate is identified at 134 bpm. A normal amount of amniotic fluid is present. The amniotic fluid index is 10.78 cm. There is no evidence for placenta previa or subchorionic hemorrhage. The placenta is anteriorly located. The cervix measures 3.3 cm in length. The cervical os is closed. The fetus is in cephalic presentation. A nuchal CORD is redemonstrated on multiple images. Biophysical profile: movements: 2/2 tone: 2/2 breathing movements: 2/2. Amniotic fluid volume: 2/2 US/US OB BPP w non-stress IMPRESSION: Single live IUP with an estimated gestational age of 30 weeks and 5 days with a normal heart rate. Biophysical profile score: 8/8 A nuchal cord is redemonstrated on multiple images. Impression dictated by: Thomas Ashley M.D. 11/05/2024 2:54 PM Dictation Location: [employer] Electronically authenticated by: [id number] Y Date: 11/05/2024 14:54
--- NOTE | 2024-11-05 12:23 | US_ITS ---
[address] [address] Patient Name: KALYN MARTINEZ MRN: [id number] date: 2005 Sex: F Assigned Patient Location: [facility] Current Patient Location: [facility] Accession/Order Number: [id number] Exam Date: 11/05/2024 14:48 Report Date: 11/05/2024 14:54 At the request of: WILLI ZAMBRANO DO Procedure: US OB cervical length US OB placenta, US OB BPP w non-stress, US OB cervical length 11/05/2024 1:19 PM SIGNS AND SYMPTOMS: ^Abd. pain spotting, history of nuchal cord COMPARISON: 11/03/2024. TECHNIQUE: Sonography of the gravid uterus. FINDINGS: An intrauterine is identified. The fetus has an estimated gestational age of 30 weeks and 5 days. A heart rate is identified at 134 bpm. A normal amount of amniotic fluid is present. The amniotic fluid index is 10.78 cm. There is no evidence for placenta previa or subchorionic hemorrhage. The placenta is anteriorly located. The cervix measures 3.3 cm in length. The cervical os is closed. The fetus is in cephalic presentation. A nuchal CORD is redemonstrated on multiple images. Biophysical profile: movements: 2/2 tone: 2/2 breathing movements: 2/2. Amniotic fluid volume: 2/2 US/US OB cervical length IMPRESSION: Single live IUP with an estimated gestational age of 30 weeks and 5 days with a normal heart rate. Biophysical profile score: 8/8 A nuchal cord is redemonstrated on multiple images. Impression dictated by: Thomas Ashley M.D. 11/05/2024 2:54 PM Dictation Location: [employer] Electronically authenticated by: [id number] Y Date: 11/05/2024 14:54
--- NOTE | 2024-11-05 12:24 | US_ITS ---
[address] [address] Patient Name: KALYN MARTINEZ MRN: [facility]:[id number] date: 2005 Sex: F Assigned Patient Location: [facility] Current Patient Location: [facility] Accession/Order Number: [id number] Exam Date: 11/05/2024 14:48 Report Date: 11/05/2024 14:54 At the request of: WILLI ZAMBRANO DO Procedure: US OB cervical length US OB placenta, US OB BPP w non-stress, US OB cervical length 11/05/2024 1:19 PM SIGNS AND SYMPTOMS: ^Abd. pain spotting, history of nuchal cord COMPARISON: 11/03/2024. TECHNIQUE: Sonography of the gravid uterus. FINDINGS: An intrauterine is identified. The fetus has an estimated gestational age of 30 weeks and 5 days. A heart rate is identified at 134 bpm. A normal amount of amniotic fluid is present. The amniotic fluid index is 10.78 cm. There is no evidence for placenta previa or subchorionic hemorrhage. The placenta is anteriorly located. The cervix measures 3.3 cm in length. The cervical os is closed. The fetus is in cephalic presentation. A nuchal CORD is redemonstrated on multiple images. Biophysical profile: movements: 2/2 tone: 2/2 breathing movements: 2/2. Amniotic fluid volume: 2/2 US/US OB placenta IMPRESSION: Single live IUP with an estimated gestational age of 30 weeks and 5 days with a normal heart rate. Biophysical profile score: 8/8 A nuchal cord is redemonstrated on multiple images. Impression dictated by: Thomas Ashley M.D. 11/05/2024 2:54 PM Dictation Location: [employer] Electronically authenticated by: [id number] Y Date: 11/05/2024 14:54
[2024-11-05 12:32] LABS: Bilirubin Urine NEGATIVE (NEGATIVE); Blood Urine NEGATIVE (NEGATIVE); Clarity Urine CLEAR (CLEAR); Color Urine LT. YELLOW (YELLOW); Glucose Urine UA NEGATIVE (NEGATIVE); Ketones Urine 15 mg/dL (NEGATIVE); Leukocyte Esterase Urine SMALL (NEGATIVE); Nitrite Urine NEGATIVE (NEGATIVE); Protein Urine NEGATIVE (NEG/TRACE); Urobilinogen Urine 0.2 EU/dL (0.2-1.0); pH Urine 6.5 (5.0-9.0)
[2024-11-05 12:33] LABS: Urine Microscopic Indicated YES
[2024-11-05 12:38] LABS: Bacteria Urine MODERATE #/HPF (NONE SEEN); Cast Seen? NONE SEEN #/LPF (NONE SEEN); Crystals Seen? None Seen #/HPF (None Seen); Mucus Urine SMALL (NONE SEEN); Squamous Epithelial Cell Urine MODERATE #/LPF (NONE/RARE)
[2024-11-05 12:39] LABS: Urine Culture Indicated YES-LC
[2024-11-05 12:40] VITALS: BP 118/64; PULSE 72
== END 2024-11-05 15:14 | disposition home or self-care (01) ==
LOC: FBC 12:11
PROVIDERS: Admitting Provider Obstetrics & Gynecology; Visit Provider Obstetrics & Gynecology
DX: O26.893 Other specified pregnancy related conditions, third trimester (principal); R10.9 Unspecified abdominal pain; Z3A.30 30 weeks gestation of pregnancy
CPT/HCPCS: 59025; 76815; 76817; 76818; 81001; 87086; G0378; G0379

== ENCOUNTER 2024-11-17 12:58 | Outpatient (OUT) | payer MEDICAID, SELFPAY ==
--- NOTE | 2024-11-17 13:01 | US_ITS ---
[place] [address] Patient Name: KALYN MARTINEZ MRN: [id number] date: 2005 Sex: F Assigned Patient Location: [facility] Current Patient Location: Accession/Order Number: [id number] Exam Date: 11/17/2024 14:57 Report Date: 11/17/2024 14:58 At the request of: WILLI ZAMBRANO DO Procedure: US OB BPP w non-stress Ultrasound biophysical profile HISTORY: Small for gestational age Adequate breathing movement, gross body movement, tone and amniotic fluid volume for total score of 8 out of 8. The amniotic fluid index is 16.0cm within normal limits. The heart rate 130 bpm. US/US OB BPP w non-stress IMPRESSION: Adequate ultrasound biophysical profile Impression dictated by: Froy Ladd M.D. 11/17/2024 2:58 PM Dictation Location: [place] [address] Electronically authenticated by: [id number] Y Date: 11/17/2024 14:58
--- NOTE | 2024-11-17 13:01 | US_ITS ---
[address] [address] Patient Name: KALYN MARTINEZ MRN: [facility]:[id number] date: 2005 Sex: F Assigned Patient Location: [facility] Current Patient Location: Accession/Order Number: [id number] Exam Date: 11/17/2024 15:03 Report Date: 11/17/2024 15:06 At the request of: WILLI ZAMBRANO DO Procedure: US OB growth Limited obstetrical ultrasound HISTORY: Small for gestational age The fetus is in cephalic presentation with longitudinal lie. The amniotic fluid index is 16.0 cm within normal limits. The largest fluid pocket 6.2 cm. The heart rate is 130 bpm. somatic motion identified. The average gestational age is 32 weeks 5 days. Estimated date delivery 01/07/2025. Estimated weight 4 g with percentile 47.2%. No obvious nuchal cord identified. US/US OB growth IMPRESSION: Single live intrauterine gestation 32 weeks 5 days. Adequate amniotic fluid. No nuchal cord visualized. Impression dictated by: Froy Ladd M.D. 11/17/2024 3:06 PM Dictation Location: [employer] Electronically authenticated by: [id number] Y Date: 11/17/2024 15:06
[2024-11-17 13:21] VITALS: BP 128/68; PULSE 101
== END 2024-11-17 14:30 | disposition home or self-care (01) ==
LOC: US 12:58 → FBC 13:00
PROVIDERS: Visit Provider Obstetrics & Gynecology
DX: O26.843 Uterine size-date discrepancy, third trimester (principal); Z3A.32 32 weeks gestation of pregnancy; O69.81X0 Labor and delivery complicated by cord around neck, without compression, not applicable or unspecified
CPT/HCPCS: 76816; 76818

== ENCOUNTER 2024-11-20 14:08 | Outpatient (OUT) | payer MEDICAID, SELFPAY ==
--- OUTSIDE RECORDS SUMMARY | 2024-11-20 14:11 | XMS_ITS | CCD ---
Author Organization [facility] Care Team Providers Care Data Steward Name Role Phone Sravani Dumont Unavailable [phone] JORGE PROCTOR Primary Care Unavailable JEROMY TIJERINA Attending Unavailable Unavailable Primary Care Provider UnavailPARESH Isabel Attending Unavailable PARESH IRBY Admitting Unavailable Provider, None Primary Care Unavailable Willi Christiansen DO Attending Provider [phone] Елена, Willi Attending Unavailable Елена, Willi Admitting Unavailable ЕЛЕНА, WILLI Attending Unavailable ЕЛЕНА, WILLI Referring Unavailable ЕЛЕНА, WILLI Attending Unavailable KENYN, KRISTINA Attending Unavailable KENNY, KRISTINA Attending Unavailable KENNY, KRISTINA Attending Unavailable ЕЛЕНА, WILLI Attending Unavailable KENNY, KRISTINA Attending Unavailable ЕЛЕНА, WILLI Attending Unavailable ЕЛЕНА, WILLI Attending Unavailable ЕЛЕНА, WILLI Referring Unavailable Allergies Allergy Classification Reported Allergen(s) Allergy Type Date of Onset Reaction(s) Facility (18 sources) Amoxicillin; Translations: [AMOXICILLIN] Drug Allergy 12-27-2022 [facility] Repository Medications Current Medications Medication Drug Class(es) Dates Sig (Normalized) Sig (Original) [id number] 200 actuat albuterol 0.09 mg/actuat metered dose [...] Active docusate sodium 100 mg oral capsule (3 sources) Start: 11-03-2024 End: 11-13-2024 take 1 [...] polysaccharide iron complex 391 mg oral capsule (5 sources) Start: 11-03-2024 End: 12-03-2024 take 1 capsule by mouth once daily iron polysaccharides (ProFe) 391.3 (180 Fe) MG capsule Indications: 30 weeks gestation of , Third trimester Take 1 capsule (391.3 mg) by mouth Daily 30 capsule 6 11/03/2024 12/03/2024 Active MV-Min-Fe Fum-FA-DHA ( 1 PO) (20 sources) MV-Min- Fe Fum-FA-DHA ( 1 PO) [...] 1 tablet by mouth Daily 30 tablet 06/24/2024 11/03/2024 Discontinued Start: 06-24-2024 End: 06-24-2025 [...] low weight; and growth retardation (4 sources) Kabyb-jvj-sogat baby; Translations: [ small for gestational age, unspecified weight] 10-04-2024 [...] Test Name Value Interpretation Reference Range Facility No Panel InformationOrdered By: Radiologist Radiology on 11-17-2024 [facility] Work Phone: US OB BPP W NON-STRESS on 11-17-2024 [place] [address] Ultrasound Report Signed Patient: SHAYLA MARTINEZ MR#: [id number] : 2005 Acct:[id number] Age/Sex: 18 / F ADM Date: 11/17/24 Loc: US Attending Dr: Willi Christiansen D.O. Ordering Physician: Willi Christiansen D.O. Date of Service: 11/17/24 Procedure(s): US OB BPP w non-stress Accession Number(s): [id number] cc: Willi Christiansen D.O.; Physician,Non-Staff M.DElliott [address] [address] Patient Name: SHAYLA MARTINEZ MRN: [facility]:[id number] date: 2005 Sex: F Assigned Patient Location: [facility] Current Patient Location: Accession/Order Number: [id number] Exam Date: 11/17/2024 14:57 Report Date: 11/17/2024 14:58 At the request of: WILLI CHRISTIANSEN DO Procedure: US OB BPP w non-stress Ultrasound biophysical profile HISTORY: Small for gestational age Adequate breathing movement, gross body movement, tone and amniotic fluid volume for total score of 8 out of 8. The amniotic fluid index is 16.0cm within normal limits. The heart rate 130 bpm. US/US OB BPP w non-stress IMPRESSION: Adequate ultrasound biophysical profile Impression dictated by: Froy Ladd M.D. 11/17/2024 2:58 PM Dictation Location: [place] [address] Electronically authenticated by: [id number] Y Date: 11/17/2024 14:58 Dictated By: Froy Ladd D.O. Signed By: 11/17/24 1500 DD/ 1458 TD/TT: Facilities Mechanical Design Engineer: [facility] Radiology, Radiologist, MD - 11/17/2024 [place] [address] Ultrasound Report Signed Patient: SHAYLA MARTINEZ MR#: [id number] : 2005 Acct:[id number] Age/Sex: 18 / F ADM Date: 11/17/24 Loc: US Attending Dr: Willi Christiansen D.O. Ordering Physician: Willi Christiansen D.O. Date of Service: 11/17/24 Procedure(s): US OB BPP w non-stress Accession Number(s): [id number] cc: Willi Christiansen D.O.; Physician,Non-Staff Arin The [address] [address] Patient Name: SHAYLA MARTINEZ MRN: [facility]:[id number] date: 2005 Sex: F Assigned Patient Location: [facility] Current Patient Location: Accession/Order Number: [id number] Exam Date: 11/17/2024 14:57 Report Date: 11/17/2024 14:58 At the request of: WILLI CHRISTIANSEN DO Procedure: US OB BPP w non-stress Ultrasound biophysical profile HISTORY: Small for gestational age Adequate breathing movement, gross body movement, tone and amniotic fluid volume for total score of 8 out of 8. The amniotic fluid index is 16.0cm within normal limits. The heart rate 130 bpm. US/US OB BPP w non-stress IMPRESSION: Adequate ultrasound biophysical profile Impression dictated by: Froy Ladd M.D. 11/17/2024 2:58 PM [facility] Electron[facility] authenticated by: [id number] Y Date: 11/17/2024 14:58 Dictated By: Froy Ladd D.O. Signed By: 11/17/24 1500 DD/ 1458 TD/TT: Facilities Mechanical Design Engineer: [facility] Radiology Study observation (narrative) [facility] US OB GROWTHon 11-17-2024 [place] [address] Ultrasound Report Signed Patient: SHAYLA MARTINEZ MR#: [id number] : 2005 Acct:[id number] Age/Sex: 18 / F ADM Date: 11/17/24 Loc: US Attending Dr: Willi Christiansen D.O. Ordering Physician: Willi Christiansen D.O. Date of Service: 11/17/24 Procedure(s): US OB growth Accession Number(s): [id number] cc: Willi Christiansen D.O.; Physician,Non-Staff Arin [address] [address] Patient Name: SHAYLA MARTINEZ MRN: [facility]:[id number] date: 2005 Sex: F Assigned Patient Location: [facility] Current Patient Location: Accession/Order Number: [id number] Exam Date: 11/17/2024 15:03 Report Date: 11/17/2024 15:06 At the request of: WILLI CHRISTIANSEN DO Procedure: US OB growth Limited obstetrical ultrasound HISTORY: Small for gestational age The fetus is in cephalic presentation with longitudinal lie. The amniotic fluid index is 16.0 cm within normal limits. The largest fluid pocket 6.2 cm. The heart rate is 130 bpm. somatic motion identified. The average gestational age is 32 weeks 5 days. Estimated date delivery 01/07/2025. Estimated weight 4 g with percentile 47.2%. No obvious nuchal cord identified. US/US OB growth IMPRESSION: Single live intrauterine gestation 32 weeks 5 days. Adequate amniotic fluid. No nuchal cord visualized. Impression dictated by: Froy Ladd M.D. 11/17/2024 3:06 PM Dictation [facility] Electronically authenticated by: [id number] Y Date: 11/17/2024 15:06 Dictated By: Froy Ladd D.O. Signed By: 11/17/24 1508 DD/ 1506 TD/TT: Facilities Mechanical Design Engineer: [facility] Radiology, Radiologist, MD - 11/17/2024 [place] [address] Ultrasound Report Signed Patient: SHAYLA MARTINEZ MR#: [id number] : 2005 Acct:[id number] Age/Sex: 18 / F ADM Date: 11/17/24 Loc: US Attending Dr: Willi Christiansen D.O. Ordering Physician: Willi Christiansen D.O. Date of Service: 11/17/24 Procedure(s): US OB growth Accession Number(s): [id number] cc: Willi Christiansen D.O.; Physician,Non-Staff Arin The [address] [address] Patient Name: SHAYLA MARTINEZ MRN: [facility]:[id number] date: 2005 Sex: F Assigned Patient Location: [facility] Current Patient Location: Accession/Order Number: [id number] Exam Date: 11/17/2024 15:03 Report Date: 11/17/2024 15:06 At the request of: WILLI CHRISTIANSEN DO Procedure: US OB growth Limited obstetrical ultrasound HISTORY: Small for gestational age The fetus is in cephalic presentation with longitudinal lie. The amniotic fluid index is 16.0 cm within normal limits. The largest fluid pocket 6.2 cm. The heart rate is 130 bpm. somatic motion identified. The average gestational age is 32 weeks 5 days. Estimated date delivery 01/07/2025. Estimated weight 4 g with percentile 47.2%. No obvious nuchal cord identified. US/US OB growth IMPRESSION: Single live intrauterine gestation 32 weeks 5 days. Adequate amniotic fluid. No nuchal cord visualized. Impression dictated by: Froy Ladd M.D. 11/17/2024 3:06 PM Dictation [facility] Electronically authenticated by: [id number] Y Date: 11/17/2024 15:06 Dictated By: Froy Ladd D.O. Signed By: 11/17/24 1508 DD/ 1506 TD/TT: Facilities Mechanical Design Engineer: [facility] Radiology Study observation (narrative) [facility] US OB GROWTHon 11-03-2024 [place] [address] Ultrasound Report Signed Patient: SHAYLA MARTINEZ MR#: [id number] : 2005 Acct:[id number] Age/Sex: 18 / F ADM Date: 11/03/24 Loc: US Attending Dr: Kristina Cox Ordering Physician: Willi Christiansen D.O. Date of Service: 11/03/24 Procedure(s): US OB growth Accession Number(s): [id number] cc: Willi Christiansen D.O.; Physician,Non-Staff Arin [address] [address] Patient Name: SHAYLA MARTINEZ MRN: [id number] date: 2005 Sex: F Assigned Patient Location: US Current Patient Location: US Accession/Order Number: [id number] Exam Date: 11/03/2024 17:00 Report Date: 11/03/2024 [...] Ladd M.D. 11/03/2024 5:05 PM Dictation Location: [place] [address] Electronically authenticated by: [id number] Y Date: 11/03/2024 17:05 Dictated By: Froy Ladd D.O. Signed By: 11/03/241707 DD/ 04 TD/TT: Facilities Mechanical Design Engineer: [facility] Radiology, Radiologist, - 11/03/2024 [place] [address] Ultrasound Report Signed Patient: SHAYLA MARTINEZ MR#: [id number] : 2005 Acct:[id number] Age/Sex: 18 / F ADM Date: 11/03/24 Loc: US Attending Dr: Kristina Cox Ordering Physician: Willi Christiansen D.O. Date of Service: 11/03/24 Procedure(s): US OB growth Accession Number(s): [id number] cc: Willi Christiansen D.O.; Physician,Non-Staff Arin The [address] [address] Patient Name: SHAYLA MARTINEZ MRN: [facility]:[id number] date: 2005 Sex: F Assigned Patient Location: Current Patient Location: US Accession/Order Number: [id number] Exam Date: 11/03/2024 17:00 Report Date: 11/03/2024 [...] Ladd M.D. 11/03/2024 5:05 PM Dictation Location: [place] [address] Electronically authenticated by: [id number] Y Date: 11/03/2024 17:05 Dictated By: Froy Ladd D.O. Signed By: 11/03/241707 DD/ 04 TD/TT: Facilities Mechanical Design Engineer: [facility] Radiology Study observation (narrative) [facility] OB GROWTHOrdered By: Amadou ologist Radiology on 11-03-2024 [facility] [employer] Work Phone: Urinalysis macro (dipstick) panel (U)on 11-03-2024 Bilirubin, UA Negative Negative - 4(70) +++ mg/dL [facility] Blood, UA Positive Negative - 50 Onur/mcL [facility] Comment on above: trace-intact Clarity, UA Clear [facility] re Color, UA Yellow [facility] e Glucose, UA Negative Negative - 2000(110) ++++ mg/dL [facility] Interpretation and review of laboratory results Abnormal [facility] Ketones, UA Negative Negative - 160(16) ++++ mg/dL [facility] Leukocytes, UA Positive Negative - 500+++ Todd/mcL [facility] Comment on above: small Nitrite, UA Negative Negative - Positive [facility] pH, UA 7.5 5 - 9 [facility] Healthcar e Protein, UA Negative Negative - 2000(20) ++++ mg/dL [facility] Spec Grav, UA 1.02 1 - 1.03 [facility] Urobilinogen, UA 0.2 0.2 - 12 mg/dL [facility] Urinalysis macro (dipstick) panel (U)on 10-04-2024 Bilirubin, UA Negative Negative - 4(70) +++ mg/dL [facility] Blood, UA Positive Negative - 50 Onur/mcL [facility] Comment on above: large Clarity, UA Clear [facility] re Color, UA Yellow [facility] Glucose, UA Negative Negative - 1999(110) ++++ mg/dL [facility] Interpretation and review of laboratory results Abnormal [facility] Ketones, UA Negative Negative - 160(16) ++++ mg/dL [facility] Leukocytes, UA Trace Negative - 500+++ Todd/mcL [facility] Nitrite, UA Negative Negative - Positive [facility] pH, UA 7 5 - 9 [facility] Healthcar e Protein, UA Trace Negative - 2000(20) ++++ mg/dL [facility] Spec Grav, UA 1.02 1 - 1.03 [facility] Urobilinogen, UA 0.2 0.2 - 12 mg/dL [facility] Healthcar e US OB 14+ WEEKS ANATOMY [...] placental previa. 3. Marginal placental previa. Electronically Signed:Electronical ly signed by KATEY SPIVEY II, MD, PHD at 25-Aug-2024 08:37:46 AM [facility] Normal Not Available Comment on above: Order Comment: US OB ANATOMY SINGLE W US OB CERVICAL LENGTH Estimated Date of Delivery: 01/06/25 Gestational Age as of 07/27/2024: 16w5d BOX TESTon 06-24-2024 BOX TEST SENT OUT [employer] [facility] [facility] BOX1 [facility] BOX2 06/24/24 [facility] [employer] BOX [facility] HCG ( test) Ql (U)o n 06-24-2024 Interpretation and review of laboratory results Abnormal [facility] Preg Test, Ur Positive Negative [facility] US OB < [...] UA Negative Negative - 4(70) +++ mg/dL [facility] Blood, UA Negative Negative - 50 Onur/mcL [facility] Clarity, UA Clear [facility] re Color, UA Yellow [facility] Glucose, UA Negative Negative - 1999(110) ++++ mg/dL [facility] Interpretation and review of laboratory results Abnormal [facility] Ketones, UA Positive Negative - 160(16) ++++ mg/dL [facility] Comment on above: 40 Leukocytes, UA Positive Negative - 500+++ Todd/mcL [facility] Comment on above: small Nitrite, UA Negative Negative - Positive [facility] pH, UA 7 5 - 9 [facility] e Protein, UA Positive Negative - 1999(20) ++++ mg/dL [facility] Comment on above: 30 Spec Grav, UA 1.025 1 - 1.03 [facility] Urobilinogen, UA 0.2 0.2 - 12 mg/dL [facility] Urine Cultureon 06-24-2024 Bacteria identified [facility] (U) 75,000 colonies/ml mixed bacterial skin contaminants 2 Days PERFORMED BY: [address] [address] PATHOLOGIST POT BUILDER FABBY ROSSI M.D. Normal [facility] Comment on above: Performed By: #### C UU #### [address] [address] [facility] Consent Formson 05-18-2024 Consent Forms [id number] [facility] ED Clinical Summaryon 2023 ED Clinical Summary [facility] ? Urgent Care [address] [place] [address] Clinical Summary PERSON INFORMATION Name: SHAYLA MARTINEZ Age: 18 Years Sex: FEMALE : 2005 MRN: Acct#: Visit Reason: Medical screening exam; [facility] Arrival: 05/17/2024 13:06:33 Discharge: 05/17/2024 14:08:00 LOS: 000 01:02 Check In: 05/17/2024 13:06:33 Checkout: 05/17/2024 14:08:00 Address: [address] [place] [address] PCP: Provider, None PROVIDER INFORMATION Provider Role [...] DIAGNOSIS: Physical exam Patient Understands: Yes - Patient/family/neonatal critical care nurse verbalizes understanding of instructions given Comment: [facility] ED Patient Summaryon 024 ED Patient Summary [facility] ? Urgent Care [address] [place] [address] PATIENT DISCHARGE INSTRUCTIONS Patient Information Name: SHAYLA MARTINEZ Age: 18 Years Date of : 2005 Reason For Visit: Medical screening exam; [facility] Arrival Time: 05/17/2024 13:06:33 Primary Care Physician: Provider, None Attending Physician: PARESH IRBY Comment: Patient Education With: Address: When: Your primary provider in your hometown , only if needed Medication Information: The exam and treatment you received today in the [facility] Emergency Department were for an urgent problem and are not intended as complete care. It is important for you to follow up with a doctor, nurse practitioner, or physician?s assistant professor of spanish for ongoing care. If your symptoms become [...] so we can reach you if necessary. [facility] Emergency Department has provided you with a complete list of medications post discharge. Please inform your grazing examiner/provider of your visit and for further instruction on these medications. Any specific questions regarding your chronic medications and dosages should be discussed with your primary care physician(s) and/or pharmacist. Visit Information Visit Diagnosis: Diagnoses This Visit Medical screening exam ([id number]) Physical exam (Z00.00) If you received any [...] Infection Yes Antibiotics Aren?t Always the Answer www.cdc.gov/getsmar t GET SMART Know When Antibiotics Work U.S. Department of Health and Human Services Centers for Disease Control and Prevention February 2014 [facility] Urgent Care Note- Provideron 05-17-2024 Urgent Care [...] - Pharynx pink and moist. NECK: -Supple (lmsq-[id number]): non-tender. CARD: -Rate and rhythm: Regular -Edema: [...] Plan Assessment and Plan: Diagnosis: Physical exam ([id number] Z00.00). Cleared for employment [Electronically Signed on: 05/17/2024 14:05 EST] __ PARESH IRBY [Verified on: 05/17/2024 14:05 EST] __ PARESH IRBY Normal [facility] Urgent Care Recordon 024 Urgent Care Record [facility] ? Urgent Care [address] [place] [address] PATIENT DISCHARGE INSTRUCTIONS Patient Information Name: SHAYLA MARTINEZ Age: 18 Years Date of : 2005 Reason For Visit: Medical screening exam; [facility] Arrival Time: 05/17/2024 13:06:33 Primary Care Physician: Provider, None Attending Physician: PARESH IRBY Comment: Visit Diagnosis: Diagnoses This Visit Medical screening exam ([id number]) Physical exam (Z00.00) If you received any [...] and treatment you received today in the [facility] Urgent Care were for an urgent problem and are not intended as complete care. It is important for you to follow up with a doctor, nurse practitioner, or physician?s assistant professor of spanish for ongoing care. If your symptoms become [...] so we can reach you if necessary. [facility] Care has provided you with a complete list of medications post discharge. Please inform your grazing examiner/provider of your visit and for further instruction [...] Infection Yes Antibiotics Aren?t Always the Answer www.cdc.gov/getsmar t GET SMART Know When Antibiotics Work U.S. Department of Health and Human Services Centers for Disease Control and Prevention February 2014 [facility] ALL CBC WITH AUTO DIFFon Erythrocyte distribution width (RBC) [Ratio] 15.7 % High 11.0 - 15.0 % [facility] Hematocrit (Bld) [Volume fraction] 30.7 % Low 36.0 - 48.0 % [facility] e Hemoglobin (Bld) [Mass/Vol] 10.0 g/dL Low 12.0 - 16.0 g/dL [facility] Interpretation and review of laboratory results Abnormal [facility] MCH (RBC) [Entitic mass] 27.9 pg 26.7 - 34.0 pg [facility] MCHC (RBC) [Mass/Vol] 32.6 g/dL 29.9 - 35.2 g/dL [facility] MCV (RBC) [Entitic vol] 85.8 fL 81.0 - 99.0 fL [facility] Platelet mean volume (Bld) [Entitic vol] 10.9 fL 9.5 - 13.[address] 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 RO IF IND.on 02-12-2024 BILIRUBIN URINE Negative NEGATIVE [facility] thcare BLOOD URINE Negative NEGATIVE [facility] Healthca re Clarity (U) CLEAR CLEAR [facility] Healthca re Color (U) YELLOW YELLOW [facility] Healthcar e GLUCOSE URINE UA Negative NEGATIVE mg/dL [facility] Interpretation and review of laboratory results Abnormal [facility] Ketones Ql (U) TRACE Abnormal NEGATIVE mg/dL [facility] Leukocyte esterase Test strip Ql (U) TRACE Abnormal NEGATIVE [facility] Healthcar e NITRITE URINE Negative NEGATIVE [facility] care pH (U) 6.5 [pH] 5.0 - 9.0 [facility] Healthcar e PROTEIN URINE Negative NEG/TRACE mg/dL [facility] SPECIFIC GRAVITY URINE >=1.030 Abnormal 1.005 - 1.025 [facility] URINE MICROSCOPIC INDICATED YES [facility] UROBILINOGEN URINE 0.2 EU/dL 0.2 - 1.0 EU/dL [facility] BOX TEST SENT OUTon 01-15 BOX TEST SENT OUT [facility] Comment on above: See Scanned Report. [facility] e Urinalysis macro (dipstick) panel (U)on 02-09-2024 Bilirubin, UA Negative Negative - 4(70) +++ mg/dL [facility] Blood, UA Positive Negative - 50 Onur/mcL [facility] Comment on above: trace-intact Clarity, UA Clear [facility] Healthca re Color, UA Yellow [facility] e Glucose, UA Negative Negative - 1999(110) ++++ mg/dL [facility] Interpretation and review of laboratory results Abnormal [facility] Ketones, UA Negative Negative - 160(16) ++++ mg/dL [facility] Leukocytes, UA Trace Negative - 500+++ Todd/mcL [facility] Nitrite, UA Negative Negative - Positive [facility] pH, UA 6.5 5 - 9 [facility] Healthcar e Protein, UA Negative Negative - 1999(20) ++++ mg/dL [facility] Spec Grav, UA 1.030 1 - 1.03 [facility] Urobilinogen, UA 0.2 0.2 - 12 mg/dL [facility] BOX TEST SENT OUTon 02-1 3-2024 BOX TEST SENT OUT SENT 07/29 [facility] Healthcar e HCG ( test) Ql (U)o n 07-25-2023 Interpretation and review of laboratory results Abnormal [facility] Preg Test, Ur Positive [facility] Urinalysis macro (dipstick) panel (U)on 07-25-2023 Bilirubin, UA Negative Negative - 4(70) +++ mg/dL [facility] Blood, UA Negative Negative - 50 Onur/mcL [facility] Clarity, UA Clear [facility] re Color, UA Yellow [facility] e Glucose, UA Negative Negative - 1999(110) ++++ mg/dL [facility] Interpretation and review of laboratory results Abnormal [facility] Ketones, UA Positive Negative - 160(16) ++++ mg/dL [facility] Leukocytes, UA Positive Negative - 500+++ Todd/mcL [facility] Nitrite, UA Negative Negative - Positive [facility] pH, UA 7.0 5 - 9 [facility] e Protein, UA Positive Negative - 1999(20) ++++ mg/dL [facility] Spec Grav, UA 1.025 1 - 1.03 [facility] Urobilinogen, UA 1.0 0.2 - 12 mg/dL [facility] Healthcar e BASIC METABOLIC PANLon 07-18 Anion gap [Moles/Vol] 9 mmol/L Normal 5-15 [facility] Comment on above: Performed By: #### B MP #### [facility] ([id number]) [address] [place] [address] Calcium [Mass/Vol] 9.1 mg/dL Normal 8.5-10.5 [facility] Comment on above: Performed By: #### B MP #### [facility] ([id number]) [address] [place] [address] Chloride [Moles/Vol] 104 mmol/L Normal 98-109 [facility] Comment on above: Performed By: #### B MP #### [facility] ([id number]) [address] [place] [address] CO2 [Moles/Vol] 21 mmol/L Low 22-32 [facility] Comment on above: Performed By: #### B MP #### [facility] ([id number]) [address] [place] [address] Creatinine [Mass/Vol] 0.58 mg/dL Normal 0.30-1.00 [facility] Comment on above: Result Comment: METH OD TRACEABLE TO IDMS STANDARD Performed By: #### B MP #### [facility] ([id number]) [address] [place] [address] eGFR (CKD-EPI) NON-RACE DEPENDENT >90 Normal >59 [facility] Comment on above: Result Comment: Reported eGFR is based on the CKD-EPI 2020 equation that does not use a race coefficient. Performed By: #### B MP #### [facility] ([id number]) [address] [place] [address]508 Glucose [Mass/Vol] 106 mg/dL High 65-99 [facility] Comment on above: Performed By: #### B MP #### [facility] ([id number]) [address] [place] [address] 59669 Potassium [Moles/Vol] 3.5 mmol/L Normal 3.5-5.0 [facility] Comment on above: Performed By: #### B MP #### [facility] ([id number]) [address] [place] [address] 42825 Sodium [Moles/Vol] 134 mmol/L Normal 134-146 [facility] Comment on above: Performed By: #### B MP #### [facility] ([id number]) [address] [place] [address] 19980 Urea nitrogen [Mass/Vol] 10 mg/dL Normal 5-23 [facility] Comment on above: Performed By: #### B MP #### [facility] ([id number]) [address], [place] [address] HCG ( test) Ql (U)o n 07-18-2023 Beta HCG ( test) Ql (U) Positive Abnormal NEG [facility] Comment on above: Performed By: #### 2 106-3 #### [facility] ([id number]) [address], [place] [address] SARS/FLU A+B/RSV by NAAT/Mol ecularon 07-18-2023 SARS/FLU [...] operators who are performing tests using either Jade Magnet DX or Shopping Buddy systems and is limited to laboratories that [...] specimen repeat. Fact Sheet for Healthcare Providers: https://www.fda.gov /media/675099/downl oad Fact Sheet for Patients: https://www.fda.gov /media/015789/downl oad Normal [facility] Comment on above: Performed By: #### C OVFLR #### [facility] ([id number]) [address] [place] [address]89 URINE CULTUREon 07-18-2023 Bacteria identified Cx Nom (U) CULTURE RESULTS 50-100,000 ORGANISMS/ML NORMAL UROGENITAL ADELE Normal [facility] Comment on above: Performed By: #### 6 30-4 #### [facility] ([id number]) [address] [place] [address], [address] [place] [address] URN MACROSCOPIC NURon 2023 BILIRUBIN MARLYS Negative Normal NEG [facility] Comment on above: Performed By: #### N UM #### [facility] ([id number]) [address] [place] [address]362 BLOOD/HGB MARLYS Negative Normal NEG [facility] Comment on above: Performed By: #### N UM #### [facility] ([id number]) [address] [place] [address]2673 GLUCOSE MARLYS Negative Normal NEG [facility] Comment on above: Performed By: #### N UM #### [facility] ([id number]) [address] [place] [address]2361 KETONES MARLYS 40 mg/dL Abnormal NEG [facility] Comment on above: Performed By: #### N UM #### [facility] ([id number]) [address] [place] [address] 93952 LEUKOCYTE ESTERASE MARLYS Small Abnormal NEG [facility] Comment on above: Performed By: #### N UM #### [facility] ([id number]) [address] [place] [address]104 NITRITE MARLYS Negative Normal NEG [facility] Comment on above: Performed By: #### N UM #### [facility] ([id number]) [address] [place] [address] 66897 PH MARLYS 7.5 Normal 5.0-8.5 [facility] Comment on above: Performed By: #### N UM #### [facility] ([id number]) [address] [place] [address] 41626 PROTEIN MARLYS 30 mg/dL Abnormal NEG [facility] Comment on above: Performed By: #### N UM #### [facility] ([id number]) [address] [place] [address] 03165 SPECIFIC GRAVITY MARLYS 1.020 Normal 1.003-1.035 [facility] Comment on above: Performed By: #### N UM #### [facility] ([id number]) [address] [place] [address] 59936 UROBILINOGEN MARLYS 2.0 eu/dL High <1.[address] [facility] Comment on above: Performed By: #### N UM #### [facility] ([id number]) [address] [place] [address] 83436 COVID Quick Testingon 2020 Result Negative [employer] Other Quick Strepon 05-08-2021 S. pyogenes Org specific cx Ql (Throat) Negative [employer] Other Quick Strep [employer] Other XR chest 2V*on 05-08-2021 XR chest 2V* [facility] [employer] Other XR chest 2V* [facility] [employer] Other XR chest 2V* [address] [facility] [employer] Other XR chest 2V* NathanielOZIEL [address] Sherrie [employer] Other XR chest 2V* XRay Report Ramsay [employer] Other XR chest 2V* Signed [employer] Other XR chest 2V* Patient: Shayla Martinez MR#: [id number] [facility] [employer] Other XR chest 2V* [address] [employer] Other XR chest 2V* : 2005 Acct:[id number] [employer] Other XR chest 2V* Age/Sex: 15 / F ADM Date: 05/08/21 [employer] Other XR chest 2V* Loc: [facility] Room: Type: [facility] [employer] Other XR chest 2V* Attending Dr: SAHIL Carranza APRN [employer] Other XR chest 2V* Ordering Provider: Sravani Dumont APRN, MAXIMILIANO [employer] Other XR chest 2V* Date of Service: 05/08/21 [employer] Other XR chest 2V* XR/XR chest 2V*: Cough;Wheezing [employer] Other XR chest 2V* Copies to: Sravani Dumont APRN, MAXIMILIANO [employer] Other XR chest 2V* PA AND LATERAL CHEST: [employer] Other XR chest 2V* CLINICAL HISTORY: Crackling and diminished lung sounds on exam today. Body aches, fever and [employer] Other XR chest 2V* productive cough. [employer] Other XR chest 2V* COMPARISON: None [employer] Other XR chest 2V* There is no focal parenchymal consolidation, effusion or pneumothorax. The cardiac, hilar and [employer] Other XR chest 2V* mediastinal silhouettes are within normal limits. There is no vascular congestion. The [employer] Other XR chest 2V* visualized bony thorax is intact. There is subtle reverse S-shaped scoliotic curvature. [employer] Other XR chest 2V* XR/XR chest 2V* [employer] Other XR chest 2V* IMPRESSION: [employer] Other XR chest 2V* NO ACUTE CARDIOPULMONARY ABNORMALITY. [employer] Other XR chest 2V* Impression dictated by: Radha Joyce M.D.05/08/2021 2:43 PM [employer] Other XR chest 2V* Dictation Location: [facility]- [employer] Other XR chest 2V* Transcribed By: [facility] 05/08/21 [facility] [employer] Other XR chest 2V* Dictated By: Radha Joyce MD 05/08/21 [facility] [employer] Other XR chest 2V* Signed By: [employer] Other XR chest 2V* 05/08/21 [facility] [employer] Other Vital Signs Date Time Vital Sign Value Performing Clinician Facility 11-03-2024 09:21-0400 Body weight 105.14 kg Kristina RHODES Work Phone: [facility] 11-03-2024 09:21-0400 Diastolic blood pressure 80 mm[Hg] Kristina Cox PA Work Phone: [facility] 11-03-2024 09:21-0400 Systolic blood pressure 120 mm[Hg] Kristina Kenny PA Work Phone: [facility] 10-04-2024 15:22-0400 Body weight 104.06 kg Kristina Kenny PA Work Phone: [facility] 10-04-2024 15:22-0400 Diastolic blood pressure 76 mm[Hg] Kristina Kenny PA Work Phone: [facility] 10-04-2024 15:22-0400 Systolic blood pressure 110 mm[Hg] Kristina Eitzen PA Work Phone: [facility] 07-27-2024 14:56-0500 Body weight 94.8 kg Willi Елена DO Work Phone: [facility] 07-27-2024 14:56-0500 Diastolic blood pressure 70 mm[Hg] Willi Елена DO Work Phone: [facility] 07-27-2024 14:56-0500 Systolic blood pressure 122 mm[Hg] Willi Елена DO Work Phone: [facility] 02-09-2024 11:08-0400 Body weight 99.7 kg Willi Елена DO Work Phone: [facility] 02-09-2024 11:08-0400 Diastolic blood pressure 80 mm[Hg] Willi Елена DO Work Phone: [facility] 02-09-2024 11:08-0400 Systolic blood pressure 120 mm[Hg] Willi Елена DO Work Phone: [facility] 07-25-2023 10:08-0500 Body weight 73.85 kg [facility] 04-16-2022 14:30-0400 Body weight 79.74 kg Sravani Dumont Other [employer] Other 04-16-2022 14:30-0400 Diastolic blood pressure 74 mm[Hg] Sravani Cobbrbacher Other [employer] Other 04-16-2022 14:30-0400 SaO2% (BldA) [Mass fraction] 96 % Sravani Cobbajcaseybharath Other [employer] Other 04-16-2022 14:30-0400 Systolic blood pressure 116 mm[Hg] Sravani Julia Other [employer] Other 03-08-2021 14:00-0400 Body height 166.37 cm Sravani Cobbajcaseybharath Other [employer] Other 03-08-2021 14:00-0400 Body mass index (BMI) [Ratio] 29.33 kg/m2 Sravani Julia Other [employer] Other 03-08-2021 14:00-0400 Body weight 81.19 kg Sravani Cobbajcaseybharath Other [employer] Other 03-08-2021 14:00-0400 Diastolic blood pressure 66 mm[Hg] Sravani Julia Other [employer] Other 03-08-2021 14:00-0400 Respiratory rate 18 /min Sravani Julia Other [employer] Other 03-08-2021 14:00-0400 SaO2% (BldA) [Mass fraction] 100 % Sravani Julia Other [employer] Other 03-08-2021 14:00-0400 Systolic blood pressure 120 mm[Hg] Sravani Julia Other [facility] [employer] Other Encounters Encounter Date Encounter Type Care Provider Facility Start: 11-17-2024 End: 11-17-2024 Clinisync Result Encounter Willi Елена DO Work Phone: [facility] Unsolicited Start: 11-17-2024 End: 11-17-2024 Clinisync Result Encounter Willi Елена DO Work Phone: [facility] Unsolicited Start: 11-03-2024 End: 11-03-2024 Bamboo flowsheet Kristina RHODES Work Phone: [facility] Start: 11-03-2024 End: 11-03-2024 Bamboo flowsheet Kristina RHODES Work Phone: [facility] Start: 11-03-2024 End: 11-03-2024 Clinisync Result Encounter Willi Елена DO Work Phone: [facility] Unsolicited Start: 11-03-2024 End: 11-03-2024 ambulatory KRISTINA COX Not Available Start: 11-03-2024 End: 11-03-2024 Office outpatient visit 15 minutes Kristina RHODES Work Phone: [facility] Comment on above: 30 weeks gestation o f ; Third trimester ; SGA (small for gestational age); Antepartum anemia; Constipation, unspecified constipation type Start: 10-04-2024 End: 10-04-2024 ambulatory KRISTINA COX Not Available Start: 10-04-2024 End: 10-04-2024 Office outpatient visit 15 minutes Kristina RHODES Work Phone: [facility] Comment on above: 26 weeks gestation o f ; Second trimester ; Diabetes mellitus screening; UTI symptoms; SGA (small for gestational age) Start: 10-04-2024 End: 10-04-2024 Bamboo flowsheet Kristina RHODES Work Phone: [facility] Start: 10-04-2024 End: 10-04-2024 Bamboo flowsheet Kristina RHODES Work Phone: [facility] Start: 08-24-2024 End: 08-24-2024 ambulatory KRISTINA COX Not Available Start: 08-24-2024 End: 08-24-2024 ambulatory WILLI ЕЛЕНА Not Available Start: 07-27-2024 End: 07-27-2024 ambulatory WILLI ЕЛЕНА Not Available Start: 07-27-2024 End: 07-27-2024 Office outpatient visit 15 minutes Willi Елена DO Work Phone: [facility] Comment on above: 16 weeks gestation o f ; Second trimester ; Screening, , for anatomic survey; STD exposure; Yeast infection Start: 07-27-2024 End: 07-27-2024 Bamboo flowsheet Willi Елена DO Work Phone: [facility] Start: 07-27-2024 End: 07-27-2024 Bamboo flowsheet Willi Елена DO Work Phone: [facility] Start: 06-24-2024 End: 06-24-2024 ambulatory Willi Елена [facility] Work Phone: Start: 06-24-2024 End: 06-24-2024 Departed Referred Willi Елена DO Work Phone: [facility] Start: 06-24-2024 End: 06-24-2024 Clinisync Result Encounter Willi Леена DO Work Phone: [facility] Unsolicited Start: 06-24-2024 End: 06-24-2024 Clinisync Result Encounter Willi Елена DO Work Phone: [facility] Unsolicited Start: 06-24-2024 End: 06-24-2024 Office outpatient visit 5 minutes [facility] Елена Nurse [facility] Comment on above: GA: 12w0d Start: 06-24-2024 End: 06-24-2024 ambulatory WILLI ЕЛЕНА Not Available Start: 05-17-2024 End: 05-17-2024 ambulatory PARESH RHODES Facility:[facility] Start: 02-13-2024 End: 02-13-2024 Clinisync Result [...] Available Start: 01-06-2024 End: 01-06-2024 ambulatory KRISTINA COX Not Available Start: 12-23-2023 End: 12-23-2023 ambulatory WILLI ЕЛЕНА Not Available Start: 11-19-2023 End: 11-19-2023 ambulatory WILLI ЕЛЕНА Not Available Start: 07-29-2023 [...] End: 07-18-2023 Emergency department [facility] Start: 11-28-2022 End: 11-28-2022 ambulatory Sravani Dumont Other [employer] Other Start: 11-28-2022 Telephone encounter Sravani Forrest her [facility] Start: 04-16-2022 End: 04-16-2022 ambulatory Sravani Dumont Other [employer] Other Start: 04-16-2022 Encounter for routin e child health examination without abnormal findings Sravani Dumont [facility] Start: 04-16-2022 Periodic preventive med est patient 12-17yrs Sravani Dumont [facility] Start: 05-08-2021 End: 05-08-2021 ambulatory Sravani Dumont Other [employer] Other Start: 05-08-2021 Office outpatient vi sit 15 minutes Sravani Dumont [facility] Start: 05-08-2021 Telephone encounter Sravani Forrest her [employer] Start: 03-08-2021 Office outpatient vi sit 15 minutes Sravani Dumont [facility] Procedures Date Procedure Procedure Detail Performing Clinician Start: 11-17-2024 US OB GROWTH Willi Fazi o DO Work Phone: Start: 11-17-2024 US OB BPP W NON-STRESS Willi Елена DO Work Phone: Start: 11-03-2024 US OB GROWTH Willi Fazi o DO Work Phone: Start: 11-03-2024 Urnls dip stick/tabl et rgnt non-auto w/o micrscp Kristina RHODES Work Phone: Start: 10-04-2024 Urnls dip stick/tabl et rgnt non-auto w/o micrscp Willi Елена DO Work Phone: Start: 06-24-2024 BOX TEST Willi Fazi o DO Work Phone: Start: 06-24-2024 Urnls dip stick/tabl et rgnt non-auto w/o micrscp Willi Елена DO Work Phone: Start: 02-13-2024 ALL CBC WITH AUTO DIFF Willi Елена DO Work Phone: Start: 02-12-2024 [facility] UA (CLEAN/CATCH) [employer]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 Willi Елена DO Work Phone: Start: 02-09-2024 Urnls dip stick/tabl et rgnt non-auto w/o micrscp Willi Елена DO Work Phone: Start: 01-26-2024 [facility] BOX TEST SENT OUT C orey Елена DO Work Phone: Start: 07-29-2023 [facility] BOX TEST SENT OUT C orey Елена DO Work Phone: Start: 07-25-2023 Urnls dip stick/tabl et rgnt non-auto w/o micrscp Willi Елена DO Work Phone: Plan of Treatment Date Care Activity Detail Author Start: 02-14-2025 Influenza vaccination Influenz a Vaccine (Season Ended) [facility] Start: 11-17-2024 End: 11-17-2024 Patient encounter procedure [facility] Start: 11-03-2024 End: 11-03-2025 Ferritin [Mass/volume] in Serum or Plasma Ferritin Lab Routine Antepartum anemia Expected: 11/03/2024 (Approximate), Expires: 11/03/2025 [facility] Comment on above: Expected: 11/03/2024 (Approximate), Expires: 11/03/2025 Start: 11-03-2024 End: 11-03-2025 Transferrin [Mass/volume] in Serum or Plasma Transferrin Lab Routine Antepartum anemia Expected: 11/03/2024, Expires: 11/03/2025 [facility] Comment on above: Expected: 11/03/2024 , Expires: 11/03/2025 Start: 10-20-2024 End: 10-20-2024 Patient encounter procedure 10/20/2024 11:20 AM EDT Routine [facility] [address] [place] [address] Kristina Cox PA [address] [place], [place] [id number] [facility] Start: 10-20-2024 End: 10-20-2024 Professional / ancillary services management 10/20/2024 10:30 AM EDT Ancillary Procedure [facility] [address] [place] [address] [facility] Start: 10-04-2024 End: 10-04-2025 CBC panel - Blood by Automated count CBC Lab Routine Diabetes mellitus screening Expected: 10/04/2024 (Approximate), Expires: 10/04/2025 [facility] Work Phone: Comment on above: Expected: 10/04/2024 (Approximate), Expires: 10/04/2025 Start: 10-04-2024 End: 10-04-2025 Measurement of glucose 1 hour after glucose challenge for glucose tolerance test Glucose tolerance, 1 hour Lab Routine Diabetes mellitus screening Expected: 10/04/2024 (Approximate), Expires: 10/04/2025 [facility] Comment on above: Expected: 10/04/2024 (Approximate), Expires: 10/04/2025 Start: 10-04-2024 End: 02-03-2025 US for US OB follow up transabdominal approach Imaging Routine 26 weeks gestation of Second trimester SGA (small for gestational age) Expected: 10/04/2024, Expires: 02/03/2025 [facility] Comment on above: Expected: 10/04/2024 , Expires: 02/03/2025 Start: 08-24-2024 End: 08-24-2024 Patient encounter procedure 08/24/2024 2:30 PM EDT Routine [facility] [address] [place] [id number] Kristina Cox PA [address] [place] [address] [facility] Start: 08-24-2024 End: 08-24-2024 Professional / ancillary services management 08/24/2024 1:30 PM EDT Ancillary Procedure [facility] [address] [facility] [place] [phone] [facility] Start: 07-27-2024 End: 07-27-2024 Patient encounter procedure 07/27/2024 2:20 PM EST Routine [facility] [address] [place] [address] Willi Christiansen DO [address] [place] [address] [facility] Start: 07-27-2024 End: 09-24-2024 Alpha fetoprotein, maternal Alpha fetoprotein, maternal Lab Routine Screening, , for anatomic survey Expected: 07/27/2024 (Approximate), Expires: 09/24/2024 [facility] Comment on above: Expected: 07/27/2024 (Approximate), Expires: 09/24/2024 Start: 07-27-2024 End: 07-27-2025 US for US OB 14+ weeks anatomy scan Imaging Routine Screening, , for anatomic survey Expected: 07/27/2024, Expires: 07/27/2025 [facility] Comment on above: Expected: 07/27/2024 , Expires: 07/27/2025 Start: 06-24-2024 Urine culture [facility] Start: 06-24-2024 End: 06-24-2025 ABO/Rh ABO/Rh Lab Routine Missed menses , unspecified gestational age Expected: 06/24/2024 (Approximate), Expires: 06/24/2025 [facility] Comment on above: Expected: 06/24/2024 (Approximate), Expires: 06/24/2025 Start: 06-24-2024 Bacteria identified in Urine by Culture [facility] Comment on above: Ordered: 06/24/2024 Start: 06-24-2024 End: 06-24-2025 Blood type and Indirect antibody screen panel - Blood Type and screen Lab Routine Missed menses , unspecified gestational age Expected: 06/24/2024 (Approximate), Expires: 06/24/2025 [facility] Work Phone: Comment on above: Expected: 06/24/2024 (Approximate), Expires: 06/24/2025 Start: 06-24-2024 End: 06-24-2025 Drugs of abuse panel - Urine by Screen method Rapid drug screen, urine Lab Routine , unspecified gestational age Encounter for supervision of normal first in first trimester Expected: 06/24/2024 (Approximate), Expires: 06/24/2025 [facility] Comment on above: Expected: 06/24/2024 (Approximate), Expires: 06/24/2025 Start: 02-15-2024 Influenza vaccination Influenza Vacc ine (#1) [facility] Start: 02-09-2024 End: 02-09-2024 Patient encounter procedure 02/09/2024 11:00 AM EDT Routine [facility] [address] [place] [phone] Willi Christiansen DO [address] [place] [address] Arrived [facility] Comment on above: Arrived Start: 08-26-2023 End: 08-26-2023 Patient encounter procedure 08/26/2023 1:50 PM EDT Routine [facility] [address] [place] [phone] Willi Christiansen DO [address] [place] [address] [facility] Start: 07-25-2023 End: 07-25-2024 ABO/Rh ABO/Rh Lab Routine Missed menses Expected: 07/25/2023 (Approximate), Expires: 07/25/2024 [facility] Comment on above: Expected: 07/25/2023 (Approximate), Expires: 07/25/2024 Start: 07-25-2023 End: 07-25-2024 Blood type and Indirect antibody screen panel - Blood Type and screen Lab Routine Missed menses Expected: 07/25/2023 (Approximate), Expires: 07/25/2024 [facility] Work Phone: Comment on above: Expected: 07/25/2023 (Approximate), Expires: 07/25/2024 Start: 07-25-2023 End: 07-25-2024 US Pelvis transvaginal US OB transvaginal Imaging Routine Missed menses Expected: 07/25/2023 (Approximate), Expires: 07/25/2024 [facility] Comment on above: Expected: 07/25/2023 (Approximate), Expires: 07/25/2024 Bacteria identified in Urine by Culture Urine culture Microbiology Routine Missed menses Ordered: 07/25/2023 [facility] Comment on above: Ordered: 07/25/2023 CBC W Auto Different ial panel - Blood CBC and differential Lab Routine Missed menses Ordered: 07/25/2023 [facility] Comment on above: Ordered: 07/25/2023 CBC W Auto Different ial panel - Blood CBC and differential Lab Routine Missed menses , unspecified gestational age Ordered: 06/24/2024 [facility] Comment on above: Ordered: 06/24/2024 CHLAMYDIA TRACHOMATI S (GENITO/STI) CHLAMYDIA TRACHOMATIS (GENITO/STI) Lab Routine STD exposure Ordered: 07/27/2024 [facility] Comment on above: Ordered: 07/27/2024 Hemoglobin A1c measurement Hemoglobin A1c Lab Routine Missed menses Ordered: 07/25/2023 [facility] Comment on above: Ordered: 07/25/2023 Hemoglobin A1c/Hemoglobin.total in Blood Hemoglobin A1c Lab Routine Missed menses , unspecified gestational age Ordered: 06/24/2024 [facility] Comment on above: Ordered: 06/24/2024 Hemoglobin A1c/Hemoglobin.total in Blood Hemoglobin A1c Lab Routine 30 weeks gestation of Third trimester Ordered: 11/03/2024 [facility] Work Phone: Comment on above: Ordered: 11/03/2024 Hepatitis B virus surface Ag [Presence] in Serum or Plasma by Immunoassay Hepatitis B surface antigen Lab Routine Missed menses Ordered: 07/25/2023 [facility] Comment on above: Ordered: 07/25/2023 Hepatitis B virus surface Ag [Presence] in Serum or Plasma by Immunoassay Hepatitis B surface antigen Lab Routine Missed menses , unspecified gestational age Ordered: 06/24/2024 [facility] Comment on above: Ordered: 06/24/2024 Hepatitis C virus Ab [Presence] in Serum or Plasma by Immunoassay Hepatitis C antibody Lab Routine Missed menses Ordered: 07/25/2023 [facility] Comment on above: Ordered: 07/25/2023 Hepatitis C virus Ab [Presence] in Serum or Plasma by Immunoassay Hepatitis C antibody Lab Routine Missed menses , unspecified gestational age Ordered: 06/24/2024 [facility] Comment on above: Ordered: 06/24/2024 HIV-1/HIV-2 antigen/antibody combination immunoassay HIV-1 and HIV-2 antibodies Lab Routine Missed menses Ordered: 07/25/2023 [facility] Comment on above: Ordered: 07/25/2023 HIV-1/HIV-2 antigen/antibody combination immunoassay HIV-1 and HIV-2 antibodies Lab Routine Missed menses , unspecified gestational age Ordered: 06/24/2024 [facility] Comment on above: Ordered: 06/24/2024 Neisseria gonorrhoea e DNA [Presence] in Unspecified specimen by JACEK with probe detection Neisseria gonorrhea DNA probe, direct Lab Routine STD exposure Ordered: 07/27/2024 [facility] Comment on above: Ordered: 07/27/2024 Reagin Ab [Presence] in Serum by RPR RPR Lab Routine Missed menses Ordered: 07/25/2023 [facility] Comment on above: Ordered: 07/25/2023 Reagin Ab [Presence] in Serum by RPR RPR Lab Routine Missed menses , unspecified gestational age Ordered: 06/24/2024 [facility] Comment on above: Ordered: 06/24/2024 Rubella antibody, IgG Rubella an tibody, IgG Lab Routine Missed menses Ordered: 07/25/2023 [facility] Comment on above: Ordered: 07/25/2023 Rubella antibody, IgG Rubella an tibody, IgG Lab Routine Missed menses , unspecified gestational age Ordered: 06/24/2024 [facility] Comment on above: Ordered: 06/24/2024 SURESWAB(R) ADVANCED VAGINITIS PLUS, TMA SURESWAB(R) ADVANCED VAGINITIS PLUS, TMA Pathology and Cytology Routine STD exposure Ordered: 07/27/2024 [facility] Work Phone: Comment on above: Ordered: 07/27/2024 Payers Date Payer Category Payer Self-pay 2023 Medicaid [id number] 2022 Medicaid [id number] 2021 [facility] [id number] 2016 Unknown [id number] 2.1 6.840.1.922174.19 2004 Unknown [id number] 2.16.8 40.1.471516.3.579.2.1286 2004 Unknown [id number] 2.16.84 0.1.652116.3.579.2.1259 2004 Unknown [id number] 2.16.84 0.1.496957.3.579.2.1259 2004 Unknown [id number] 2.16.84 0.1.372143.3.579.2.1259 2004 Unknown [id number] 2.16.84 0.1.407822.3.579.2.9 2004 Unknown [id number] 2.16.84 0.1.595045.3.579.2.9 2004 Unknown [id number] 2.16.84 0.1.197753.3.579.2.9 2004 Unknown [id number] 2.16.84 0.1.571240.3.579.2.9 2004 Unknown [id number] 2.16.84 0.1.437815.3.579.2.1258 2004 Unknown [id number] 2.16.84 0.1.885989.3.579.2.9 2004 Unknown [id number] 2.16.84 0.1.219741.3.579.2.1258 2004 Unknown [id number] 2.16.84 0.1.737418.3.579.2.9 2004 Unknown [id number] 2.16.84 0.1.986492.3.579.2.1259 Unknown [facility] [id number] Unknown [id number] 2.16.8 40.1.241804.3.579.2.531 Social History Date Type Detail Facility Start: 06-24-2024 Sex Assigned At [employer] [facility] Start: 06-03-2023 [facility] Start: 2005 Sex Assigned At Female [facility] Start: 07-07-2023 Gender identity Identifies as female gender (finding) [facility] Start: 07-07-2023 Sexual orientation Heterosexual (finding) [facility] Start: 06-24-2024 Tobacco smoking status NHIS Ex-smoker [facility] History of tobacco use Current smoker [facility] History of tobacco use Cigarette Smoker [facility] Start: 06-24-2024 History of Social function [facility] Start: 05-13-2018 Tobacco smoking status NHIS Never smoked tobacco (finding) [facility] Start: 06-26-2024 Sex Female (finding) [facility] Clinical Notes 03-08-2021 to 11-03-2024 CARMELO Adam - 11/03/2024 9:00 AM Cony Regan, MUSIC LEADER - 10/04/2024 3:00 PM YUNRadha Crowell, MUSIC LEADER - 07/27/2024 2:20 PM Karsonisela Carringtontz, [facility] - 06/24/2024 2:00 PM EST Note Date [...] nursing note reviewed. Exam conducted with a sales agent protective service present. Vitals: There is no height or [...] of: CARMELO Adam documented in this encounter [facility] 10-04-2024 History of Presen t illness Narrative [...] nursing note reviewed. Exam conducted with a sales agent protective service present. Vitals: There is no height or [...] Macrobid will be sent to [facility] in [place]. Patient given orders to have CBC/1 hour gtt obtained prior to next scheduled appointment. Patient also given order to have growth scan done for possible SGA. Patient to return to clinic in 2-3 weeks. Documented by Swetha Regan LPN on behalf of: Dr. Willi Christiansen DO documented in this encounter [facility] 07-27-2024 History of Presen t illness Narrative [...] nursing note reviewed. Exam conducted with a sales agent protective service present. Vitals: There is no height or [...] Willi Christiansen DO documented in this encounter [facility] 06-24-2024 History of Presen t illness Narrative Reason for Appointment: Patient ID: Shayla Martinez is a 18 y.o. female who presents for Amenorrhea Patient presents today for a Nurse OB Intake appointment. Patient is 12w0d with a Estimated Date of Delivery: 7/24/25 OB History Para Term AB Living 2 [...] or questions. Nurse Visit Completed by: Roseanna Escamilla LPN documented in this encounter [facility] 05-18-2024 Note [id number] [facility] 05-17-2024 Note Patient Education Materials [facility]: [facility] 02-09-2024 History of Presen t illness [...] nursing note reviewed. Exam conducted with a sales agent protective service present. Vitals: There is no height or [...] Willi Christiansen DO documented in this encounter [facility] 07-25-2023 History of Presen t illness Narrative [...] Jacquelyn Steel MA documented in this encounter [facility] 04-16-2022 Evaluation note Encounter Date Diagnosis Assessment [...] understanding and agrees to plan of care. [employer] Other 11-23-2021 Evaluation note* Encounter Date Diagnosis [...] stool studies. Apr, Nausea (ICD-10 - R11.0) [employer] Other 09-23-2021 Evaluation note* Encounter Date Diagnosis [...] verbalized understanding and agreement with treatment plan. [employer] Other Evaluation noteNo [employer] Other Evaluation note* Diagnosis Missed menses [facility] Diagnosis 37 weeks gestation of [facility]* Diagnosis Missed menses , unspecified gestational age Encounter for supervision of normal first in first trimester Nausea Nausea alone [facility] Work Phone: Evaluation note* Diagnosis 16 weeks gestation of Second trimester state, incidental Screening, , for anatomic survey Encounter for anatomic survey STD exposure Yeast infection [facility] Diagnosis 26 weeks gestation of Second trimester state, incidental Diabetes mellitus screening Screening for diabetes mellitus UTI symptoms SGA (small for gestational age) Baetj-eqi-ppuvk without mention of malnutrition, unspecified (weight) [facility] Diagnosis 30 weeks gestation of Third trimester state, incidental SGA (small for gestational age) Oeujq-bav-irmyw without mention of malnutrition, unspecified (weight) Antepartum anemia Constipation, unspecified constipation type documented in this encounter [facility] HealthcareHistory general Narrative - Reported* Type Description Date Medical History APNEA Surgical History tonsilectomy and adenoidectomy [employer] Other Summary Purpose Family History No [...] section and content) DATE CREATED AUTHOR 07/20/2023 [facility] DATE CREATED AUTHOR AUTHOR'S ORGANIZ ATION 05/18/2024 [facility] DATE CREATED AUTHOR AUTHOR'S ORGANIZ ATION 06/30/2024 [facility] DATE CREATED AUTHOR AUTHOR'S ORGANIZ ATION 11/10/2024 [facility] d[facility] Specialists EPIC Care Teams (unrecognized sec [...] BE BASED ON THE PRIMARY CLINICAL RECORDS. [facility] [employer], [facility]. provides no warranty or guarantee of the accuracy or completeness of information in this document.
[2024-11-20 14:14] VITALS: BP 129/71; PULSE 96
== END 2024-11-20 14:53 | disposition home or self-care (01) ==
LOC: FBCO 14:09 → FBC 14:11
PROVIDERS: Visit Provider Obstetrics & Gynecology
DX: O36.5930 Maternal care for other known or suspected poor fetal growth, third trimester, not applicable or unspecified (principal); Z3A.33 33 weeks gestation of pregnancy
CPT/HCPCS: 59025

== ENCOUNTER 2024-12-03 14:14 | Outpatient (OUT) | payer MEDICAID, SELFPAY ==
--- OUTSIDE RECORDS SUMMARY | 2024-12-03 14:17 | XMS_ITS | Encounter Summary ---
Author Organization [facility] Address [address] [place] [address] Care Team Providers Care Allergy And Immunology Chief Name Role Phone Unavailable Primary Care Provider Unavailabl e Encounter Details Date Type Department Care Team (Late st Contact Info) Description 06/24/2024 Abstract [facility] OB [address] [place] [address] Nelson Christiansen, DO [address] Ila Rueda, [facility]11 Social History Tobacco Use Types Packs/Day [...] as of this encounter Plan of Treatment Not on file documented as of this encounter Visit Diagnoses Not on filedocumented in this encounter
--- OUTSIDE RECORDS SUMMARY | 2024-12-03 14:17 | XMS_ITS | Encounter Summary ---
Author Organization [facility] Address [address] [place] [address] Care Team Providers Care Polisher And Sander Name Role Phone Unavailable Primary Care Provider Unavailabl e Encounter Details Date Type Department Care Team (Late st Contact Info) Description 02/04/2024 Abstract [facility] OB [address] [facility] [address] [place] [address] Nelson Christiansen, DO [address] [facility] [address] Ila Rueda, [facility] [address] Social History Tobacco Use Types Packs/Day Years [...]
--- OUTSIDE RECORDS SUMMARY | 2024-12-03 14:17 | XMS_ITS | Encounter Summary ---
Author Organization [facility] Address [address] [place] [address] Care Team Providers Care Blind Hooker Name Role Phone Unavailable Primary Care Provider Unavailabl e Encounter Details Date Type Department Care Team (Late st Contact Info) Description 01/03/2024 Clinisync Result Encounter [facility] External Department Unsolicited Willi Christiansen, DO [address] [facility] [place] [address] Social History Tobacco Use Types [...] on file documented as of this encounter Procedures Procedure Name Priority Date/Time Associated Diagnosis Comments XR CHEST 2V 01/03/2024 11:22 AM EDT documented in this encounter Results * XR CHEST 2V (01/03/2024 11:22 AM EDT) Anatomical Region Laterality Modality Other 01/03/2024 11:2 2 AM EDT Narrative 01/03/2024 11:25 AM EDT [facility] [address] [place] [address] XRay Report Signed Patient: SHAYLA MARTINEZ MR#: [id number] : 2005 Acct:[id number] Age/Sex: 18 / F ADM Date: Loc: [facility] Attending Dr: Willi Christiansen D.O. Ordering Physician: Willi Christiansen D.O. Date of Service: 01/03/24 Procedure(s): XR chest 2V Accession Number(s): [id number] cc: Willi Christiansen D.O.; Physician,Non-Staff Arin The [place] [id number] Patient Name: SHAYAL MARTINEZ MRN: [facility]:[id number] date: 2005 Sex: F Assigned Patient Location: [facility] Current Patient Location: [facility] Accession/Order Number: [id number] Exam Date: 01/03/2024 10:37 Report Date: 01/03/2024 [...] Signed By: 01/03/24 1125 DD/ 1122 TD/TT: Labor Trainer: Procedure Note Radiology, Radiologist, MD - 01/03/2024 [place] [address] XRay Report Signed Patient: BRODIE MARTINEZ#: [id number] : 2005Acct:[id number] Age/Sex: 18 / FADM Date: Loc: [facility] Attending Dr: Willi Christiansen D.O. Ordering Physician: Willi Christiansen D.O. Date of Service: 01/03/24 Procedure(s): XR chest 2V Accession Number(s): [id number] cc: Willi Christiansen D.O.; Physician,Non-Staff Arin [place] [id number] Patient Name: SHAYLA MARTINEZ MRN: [facility]:[id number] date: 2005 Sex: F Assigned Patient Location: [facility] Current Patient Location: [facility] Accession/Order Number: [id number] Exam Date: 01/03/2024 10:37 Report Date: 01/03/2024 [...] M.D. Signed By:01/03/24 1125 DD/ 1122 TD/TT: Labor Trainer: us Willi Christiansen DO [facility] Final Result documented in this encounter Visit Diagnoses Not on filedocumented in this encounter
--- OUTSIDE RECORDS SUMMARY | 2024-12-03 14:17 | XMS_ITS | Encounter Summary ---
Author Organization [facility] Address [address] [place] [address] Care Team Providers Care Egg Trayer Name Role Phone Unavailable Primary Care Provider Unavailabl e Encounter Details Date Type Department Care Team (Late st Contact Info) Description 01/09/2024 Abstract [facility] OB [address] [place] [address] Mini Thorne LPN [address] [place] [id number] Social History Tobacco Use Types Packs/Day Years [...]
--- OUTSIDE RECORDS SUMMARY | 2024-12-03 14:17 | XMS_ITS | Encounter Summary ---
Author Organization [facility] Address [address] [place] [address] Care Team Providers Care Vertical Lathe Operator Name Role Phone Unavailable Primary Care Provider Unavailabl e Encounter Details Date Type Department Care Team (Late st Contact Info) Description 01/06/2024 Clinisync Result Encounter [facility] External Department Unsolicited Willi Chirstiansen, DO [address] [facility] [place] [address] Social History Tobacco Use Types [...] AM EDT Narrative 01/06/2024 11:26 AM EDT The [facility] [address] [place] [address] Ultrasound Report Signed Patient: SHAYLA MARTINEZ MR#: [id number] : 2005 Acct:[id number] Age/Sex: 18 / F ADM Date: 01/06/24 Loc: [facility] Attending Dr: Willi Christiansen D.O. Ordering Physician: Willi Christiansen D.O. Date of Service: 01/06/24 Procedure(s): US OB growth Accession Number(s): [id number] cc: Willi Christiansen D.O.; Physician,Non-Staff [place]in [place] [address] Patient Name: SHAYLA MARTINEZ MRN: [facility]:[id number] date: 2005 Sex: F Assigned Patient [facility] Current Patient Location: [facility] Accession/Order Number: [id number] Exam Date: 01/06/2024 10:06 Report Date: 01/06/2024 [...] Signed By: 01/06/24 1126 DD/ 1123 TD/TT: Intake Nurse: Procedure Note Radiology, Radiologist, - 01/06/[address] [address] Ultrasound Report Signed Patient: FRAN MARTINEZR#: [id number] : 2005Acct:[id number] Age/Sex: 18 / FADM Date: 01/06/24 Loc: [facility] Attending Dr: Willi Christiansen D.O. Ordering Physician: Willi Christiansen D.O. Date of Service: 01/06/24 Procedure(s): US OB growth Accession Number(s): [id number] cc: Willi Christiansen D.O.; Physician,Non-Staff Arin The [place] [id number] Patient Name: SHAYLA MARTINEZ MRN: [id number] date: 2005 Sex: F Assigned Patient [facility] Current [facility] Accession/Order Number: [id number] Exam Date: 01/06/2024 10:06 Report Date: 01/06/2024 [...] M.D. Signed By:01/06/24 1126 DD/ 1123 TD/TT: Intake Nurse: us Willi Christiansen DO [facility] Final Result documented in this encounter Visit Diagnoses Not on filedocumented in this encounter
--- OUTSIDE RECORDS SUMMARY | 2024-12-03 14:17 | XMS_ITS | Encounter Summary ---
Author Organization [facility] Address [address] [place] [address] Care Team Providers Care Technician [employer] Name Role Phone Unavailable Primary Care Provider Unavailabl e Encounter Details Date Type Department Care Team (Late st Contact Info) Description 11/05/2023 Clinisync Result Encounter [facility] External Department Unsolicited Willi Christiansen, DO [address] [facility] [place] [address] Social History Tobacco Use Types [...] PM EDT Narrative 11/05/2023 1:23 PM EDT The [facility] [address] [place] [address] Ultrasound Report Signed Patient: SHAYLA MARTINEZ MR#: [id number] : 2005 Acct:[id number] Age/Sex: 17 / F ADM Date: 11/05/23 Loc: [facility] Attending Dr: Willi Christiansen D.O. Ordering Physician: Willi Christiansen D.O. Date of Service: 11/05/23 Procedure(s): US OB placenta Accession Number(s): [id number] cc: Willi Christiansen D.O.; Physician,Non-Staff Arin The [address] [address] Patient Name: SHAYLA MARTINEZ MRN: [id number] date: 2005 Sex: F Assigned Patient [facility] Current [facility]: [facility] Accession/Order Number: [id number] Exam Date: 11/05/2023 11:04 Report Date: 11/05/2023 [...] Signed By: 11/05/23 1323 DD/ 1320 TD/TT: Software Support Analyst: Procedure Note Radiology, Radiologist, MD - 11/05/2023 The [place] [id number] Ultrasound Report Signed Patient: BRODIE MARTINEZ#: [id number] : 2005Acct:[id number] Age/Sex: 17 / FADM Date: 11/05/23 Loc: [facility] Attending Dr: Willi Christiansen D.O. Ordering Physician: Willi Christiansen D.O. Date of Service: 11/05/23 Procedure(s): US OB placenta Accession Number(s): [id number] cc: Willi Christiansen D.O.; Physician,Non-Staff Arin [place] [id number] Patient Name: SHAYLA MARTINEZ MRN: [facility]:[id number] date: 2005 Sex: F Assigned Patient Location: [facility] Current Patient Location: [facility] Accession/Order Number: [id number] Exam Date: 11/05/2023 11:04 Report Date: 11/05/2023 [...] M.D. Signed By:11/05/23 1323 DD/ 1320 TD/TT: Software Support Analyst: us Willi Christiansen DO [facility] Final Result documented in this encounter Visit Diagnoses Not on filedocumented in this encounter
--- OUTSIDE RECORDS SUMMARY | 2024-12-03 14:17 | XMS_ITS | Clinical Summary ---
Author Organization [facility] Address [id number] [address] [place] [address] Care Team Providers Care Hospital Medical Assistant Name Role Phone Haleigh Her APRN-PANTOGRAPH II ENGRAVER Primary Care Provid er Allergies Active Allergy [...] ANTHEM MEDICAID ANTHEM ANTHEM MEDICAID Care Teams Hospital Medical Assistant Relationship Specialty Start Date End Date Haleigh Her APRN-MAXIMILIANO [address] [place] [address] PCP - General Family Medicine 11/27/22
--- OUTSIDE RECORDS SUMMARY | 2024-12-03 14:17 | XMS_ITS | Encounter Summary ---
Author Organization [facility] Address [address] [place] [address] Care Team Providers Care Remote Sensing Research Scientist Name Role Phone Unavailable Primary Care Provider Unavailabl e Encounter Details Date Type Department Care Team (Late st Contact Info) Description 07/05/2024 Abstract [facility] OB [address] [place] [address] Nelson Christiansen, DO [address] [place], [facility]11 Social History Tobacco Use Types Packs/Day [...]
--- OUTSIDE RECORDS SUMMARY | 2024-12-03 14:17 | XMS_ITS | Encounter Summary ---
Author Organization [facility] Address [address] [place] [address] Care Team Providers Care Supervisor Scrap Preparation Name Role Phone Unavailable Primary Care Provider Unavailabl e Encounter Details Date Type Department Care Team (Late st Contact Info) Description 06/28/2024 Abstract [facility] OB [address] [place] [address] Nelson Christiansen, DO [address] [place], [facility]11 Social History Tobacco Use Types Packs/Day Years [...]
--- OUTSIDE RECORDS SUMMARY | 2024-12-03 14:17 | XMS_ITS | Clinical Summary ---
Author Organization [facility] Address [address] [place] [address] Care Team Providers Care Blast Furnace Blower Name Role Phone Unavailable Primary Care Provider Unavailabl e Allergies No known active allergies Medications MV-Min-Fe Fum-FA-DHA ( 1 PO) Take 1 each by mouth Daily Active iron polysaccharides (ProFe) 391.3 (180 Fe) MG capsuleIndications: 30 weeks gestation of ([facility]),Third trimester ([facility]) Take 1 capsule (391.3 mg) by mouth Daily 30 capsule 6 11/04/19 25 025 Active docusate sodium (Colace) 100 MG capsuleIndications: Constipation, unspecified constipation type Take 1 capsule (100 mg) by mouth 2 (two) times a day as needed for constipation for up to 10 days 30 capsule 5 11/04/19 25 025 Encounters Date Type Department Care Team Description 11/29/2024 Abstract [facility] [address] [place] [address] Willi Christiansen, 11/17/2024 Clinisync Result Encounter [facility] External Department Unsolicited Willi Christiansen, DO 11/17/2024 Clinisync Result Encounter [facility] External Department Unsolicited Willi Christiansen, DO 11/11/[address] [facility] [address] [place] [address] Beatriz Jolly MA 11/05/2024 Clinisync Result Encounter [facility] External Department Unsolicited Willi Christiansen, DO 11/05/2024 Clinisync Result Encounter [facility] External Department Unsolicited ЕленаWilli, DO 11/05/2024 Clinisync Result Encounter [facility] External Department Unsolicited Елена Willi, DO 11/05/2024 Clinisync Result Encounter [facility] External Department Unsolicited Елена, Willi, DO 11/05/2024 Abstract [facility] [address] [place] [address] [place] [address] Willi Christiansen, DO 11/04/2024 Results Follow-Up [facility] [address] [place] [address] [place] [address] Mini Thorne LPN 11/03/2024 9:00 AM EDT Routine [facility] [address] [place] [address] [place] [address] Kristina Echavarria PA 30 weeks gestation of ([facility]); Third trimester ([facility]); SGA (small for gestational age) ([facility]); Antepartum anemia ([facility]); Constipation, unspecified constipation type 11/03/2024 Clinisync Result Encounter [facility] External Department Unsolicited Елена Willi, DO 11/03/2024 Bamboo flowsheet [facility] [address] [place] [address] [place] [address] Kristina Echavarria PA 10/28/2024 Telephone [facility] [address] [place] [address] [place] [address] Tabitha Garduno MA 10/07/2024 Results Follow-Up [facility] [address] [place] [address] [place] [address] Mini Thorne LPN 10/06/2024 Telephone [facility] [address] [place] [address] [place] [address] Mini Thorne LPN 10/04/2024 3:00 PM EDT Routine [facility] [address] [place] [address] [place] [address] Kristina Echavarria PA 26 weeks gestation of ([facility]); Second trimester ([facility]); Diabetes mellitus screening; UTI symptoms; SGA (small for gestational age) ([facility]) 10/04/2024 Bamboo flowsheet [facility] [address] [place] [address] [place] [address] Kristina Echavarria PA from Last 3 Months Social History Tobacco [...] Mass Index - - Plan of Treatment Health Maintenance Due Date Last Done Comments Influenza Vaccine (Season Ended) 2025 Procedures Procedure Name Priority Date/Time Associated Diagnosis Comments US OB GROWTH 11/17/2024 3:06 PM EDT US OB BPP W NON-STRESS 11/17/2024 2:58 PM EDT US OB PLACENTA 11/05/2024 2:54 PM EDT US OB CERVICAL LENGTH 11/05/2024 2:54 PM EDT US OB BPP W NON-STRESS 11/05/2024 2:54 PM EDT TB URINE MICROSCOPIC ONLY Routine 11/05/2024 12:15 PM EDT TBH UA (CLEAN/CATCH) AIRFREIGHT OPERATIONS AGENT/MICRO IF IND. Routine 11/05/2024 12:15 PM EDT US OB GROWTH 11/03/2024 5:05 PM EDT TRANSFERRIN Routine 11/03/2024 4:53 PM EDT MLR HEMOGLOBIN A1C Routine 11/03/2024 4: 53 PM EDT [facility] FERRITIN Routine 11/03/2024 4:53 PM EDT ALL CBC WITH AUTO DIFF Routine 11/03/2024 4:53 PM EDT POCT URINALYSIS DIPSTICK Routine 11/03/2024 9:32 AM EDT 30 weeks gestation of ([facility]) Third trimester ([facility]) URINARY TRACT INFECTION (HTRX) Routine 10/04/2024 4:19 PM EDT POCT URINALYSIS DIPSTICK Routine 10/04/2024 3:29 PM EDT 26 weeks gestation of ([facility]) Second trimester ([facility]) from Last 3 Months Results * US OB GROWTH (11/17/2024 3:06 PM EDT) Only the most recent of2 resultswithin the time period is included. Anatomical Region Laterality Modality Other 11/17/2024 3:06 PM EDT Narrative 11/17/2024 3:08 [place] [address] Ultrasound Report Signed Patient: SHAYLA MARTINEZ MR#: [id number] : 2005 Acct:[id number] Age/Sex: 18 / F ADM Date: 11/17/24 Loc: US Attending Dr: Willi Christiansen D.O. Ordering Physician: Willi Christiansen D.O. Date of Service: 11/17/24 Procedure(s): US OB growth Accession Number(s): [id number] cc: Willi Christiansen D.O.; Physician,Non-Staff Arin The [address] [address] Patient Name: SHAYLA MARTINEZ MRN: [id number] date: 2005 Sex: F Assigned Patient Location: [facility] Current Patient Location: Accession/Order Number: [id number] Exam Date: 11/17/2024 15:03 Report Date: 11/17/2024 [...] Ladd M.D. 11/17/2024 3:06 PM Dictation Location: [place] [address] Electronically authenticated by: [id number] Y Date: 11/17/2024 15:06 Dictated By: Froy Ladd D.O. Signed By: 11/17/24 1508 DD/ 1506 TD/TT: [employer]: Procedure Note Radiology, Radiologist, MD - 11/17/[address] [address] Ultrasound Report Signed Patient: BRODIE MARTINEZ#: [id number] : 2005Acct:[id number] Age/Sex: 18 / FADM Date: 11/17/24 Loc: US Attending Dr: Willi Christiansen D.O. Ordering Physician: Willi Christiansen D.O. Date of Service: 11/17/24 Procedure(s): US OB growth Accession Number(s): [id number] cc: Willi Christiansen D.O.; Physician,Non-Staff Arin [address] [address] Patient Name: SHAYLA MARTINEZ MRN: [facility]:[id number] date: 2005 Sex: F Assigned Patient Location: [facility] Current Patient Location: Accession/Order Number: [id number] Exam Date: 11/17/2024 15:03 Report Date: 11/17/2024 15:06 At the request of: WILLI CHRISTIANSEN DO Procedure: US OB growth Limited obstetrical ultrasound HISTORY: Small for gestational age The fetus is in cephalic presentation with longitudinal lie. The amniotic fluid index is 16.0 cm within normal limits. The largest fluid pocket 6.2cm. The heart rate is 130 bpm. somatic motion identified. The average gestational age is 32 weeks 5 days. Estimated date delivery 01/07/2025. Estimated weight 4 g with percentile 47.2%. Noobvious nuchal cord identified. US/US OB growth IMPRESSION: Single live intrauterine gestation 32 weeks 5 days. Adequate amniotic fluid. No nuchal cord visualized. Impression dictated by: Froy Ladd M.D. 11/17/2024 3:06 PM Dictation Location: [place] [address] Electronically authenticated by: [id number] Y Date: 5:06 Dictated By: Froy Ladd D.O. Signed By:11/17/24 1508 DD/ 1506 TD/TT: [employer]: us Willi Christiansen DO CLINISYNC IMAGING Final Result * US OB BPP W NON-STRESS (11/17/2024 2:58 PM EDT) Only the most recent of2 resultswithin the time period is included. Anatomical Region Laterality Modality Other 11/17/2024 2:58 PM EDT Narrative 11/17/2024 3:00 PM EDT The [place] [id number] Ultrasound Report Signed Patient: SHAYLA MARTINEZ MR#: [id number] : 2005 Acct:[id number] Age/Sex: 18 / F ADM Date: 11/17/24 Loc: US Attending Dr: Willi Christiansen D.O. Ordering Physician: Willi Christiansen D.O. Date of Service: 11/17/24 Procedure(s): US OB BPP w non-stress Accession Number(s): [id number] cc: Willi Christiansen D.O.; Physician,Non-Staff Arin The [place] [address] Patient Name: SHAYLA MARTINEZ MRN: [id number] date: 2005 Sex: F Assigned Patient Location: [facility] Current Patient Location: Accession/Order Number: [id number] Exam Date: 11/17/2024 14:57 Report Date: 11/17/2024 [...] Ladd M.D. 11/17/2024 2:58 PM Dictation Location: [facility] Electronically authenticated by: [id number] Y Date: 11/17/2024 14:58 Dictated By: Froy Ladd D.O. Signed By: 11/17/24 1500 DD/ 1458 TD/TT: [employer]: Procedure Note Radiology, Radiologist, - 11/17/2024 The [place] [id number] Ultrasound Report Signed Patient: BETHANIE MARTINEZR#: [id number] : 2005Acct:[id number] Age/Sex: 18 / FADM Date: 11/17/24 Loc: US Attending Dr: Willi Christiansen D.O. Ordering Physician: Willi Christiansen D.O. Date of Service: 11/17/24 Procedure(s): US OB BPP w non-stress Accession Number(s): [id number] cc: Willi Christiansen D.O.; Physician,Non-Staff Arin [place] [address] Patient Name: SHAYLA MARTINEZ MRN: [facility]:[id number] date: 2005 Sex: F Assigned Patient Location: [facility] Current Patient Location: Accession/Order Number: [id number] Exam Date: 11/17/2024 14:57 Report Date: 11/17/2024 14:58 At the request of: WILLI CHRISTIANSEN DO Procedure: US OB BPP w non-stress Ultrasound biophysical profile HISTORY: Small for gestational age Adequate breathing movement, gross body movement, tone and amniotic fluid volume for total score of 8 out of 8. The amniotic fluidindex is 16.0cm within normal limits. The heart rate 130 bpm. US/US OB BPP w non-stress IMPRESSION: Adequate ultrasound biophysical profile Impression dictated by: Froy Ladd M.D. 11/17/2024 2:58 PM Dictation Location: [place] [address] Electronically authenticated by: [id number] Y Date: 4:58 Dictated By: Froy Ladd D.O. Signed By:11/17/24 1500 DD/ 1458 TD/TT: [employer]: us Willi Christiansen DO CLIN[facility]YNC IMAGING Final Result * US OB PLACENTA (11/05/2024 2:54 PM EDT) Anatomical Region Laterality Modality Other 11/05/2024 2:54 PM EDT Narrative 11/05/2024 2:57 PM EDT [address] [address] Ultrasound Report Signed Patient: SHAYLA MARTINEZ MR#: [id number] : 2005 Acct:[id number] Age/Sex: 18 / F ADM Date: Loc: [facility] 253-[address]: Willi Christiansen D.O. Ordering Physician: Willi Christiansen D.O. Date of Service: 11/05/24 Procedure(s): US OB placenta Accession Number(s): [id number] cc: Willi Christiansen D.O.; Physician,Non-Staff Arin [address] [address] Patient Name: SHAYLA MARTINEZ MRN: [id number] date: 2005 Sex: F Assigned Patient Location: [facility] Current Patient Location: [facility] Accession/Order Number: [id number] Exam Date: 11/05/2024 14:48 Report Date: 11/05/2024 14:54 At the request of: WILLI CHRISTIANSEN DO Procedure: US OB cervical length US OB placenta, US OB BPP w non-stress, US OB cervical length 11/05/2024 1:19 PM SIGNS AND SYMPTOMS: Abd. pain spotting, history of nuchal cord COMPARISON: 11/03/2024. TECHNIQUE: Sonography of the gravid uterus. FINDINGS: An intrauterine is identified. The fetus has an estimated gestational age of 30 weeks and 5 days. A heart rate is identified at 134 bpm. A normal amount of amniotic fluid is present. The amniotic fluid index is 10.78 cm. There is no evidence for placenta previa or subchorionic hemorrhage. The placenta is anteriorly located. The cervix measures 3.3 cm in length. The cervical os is closed. The fetus is in cephalic presentation. A nuchal CORD is redemonstrated on multiple images. Biophysical profile: movements: 2/2 tone: 2/2 breathing movements: 2/2. Amniotic fluid volume: 2/2 US/US OB placenta IMPRESSION: Single live IUP with an estimated gestational age of 30 weeks and 5 days with a normal heart rate. Biophysical profile score: 8/8 A nuchal cord is redemonstrated on multiple images. Impression dictated by: Thomas Ashley M.D. 11/05/2024 2:54 PM Dictation Location: [place] [address] Electronically authenticated by: [id number] Y Date: 11/05/2024 14:54 Dictated By: Thomas Ashley M.D. Signed By: 11/05/24 1457 DD/ 1454 TD/TT: [employer]: Procedure Note Radiology, Radiologist, MD - 11/05/2024 [place] [address] Ultrasound Report Signed Patient: BRODIE MARTINEZ#: [id number] : 2005Acct:[id number] Age/Sex: 18 FADM Date: Loc: [facility] 253-[address]: Willi Christiansen D.O. Ordering Physician: Willi Christiansen D.O. Date of Service: 11/05/24 Procedure(s): US OB placenta Accession Number(s): [id number] cc: Willi Christiansen D.O.; Physician,Non-Staff Arin The [place] [id number] Patient Name: SHAYLA MARTINEZ MRN: [id number] date: 2005 Sex: F Assigned Patient Location: [facility] Current Patient Location: [facility] Accession/Order Number: [id number] Exam Date: 11/05/2024 14:48 Report Date: 11/05/2024 14:54 At the request of: WILLI CHRISTIANSEN DO Procedure: US OB cervical length US OB placenta, US OB BPP w non-stress, US OB cervical length11/05/2024 1:19 PM SIGNS AND SYMPTOMS: Abd. pain spotting, history of nuchal cord COMPARISON: 11/03/2024. TECHNIQUE: Sonography of the gravid uterus. FINDINGS: An intrauterine is identified. The fetus has an estimated gestational age of 30 weeks and 5 days. A heart rate is identified at 134bpm. A normal amount of amniotic fluid is present. The amniotic fluid index is 10.78 cm. There is no evidence for placenta previa or subchorionic hemorrhage. The placenta is anteriorly located. The cervix measures 3.3cm in length. The cervical os is closed. The fetus is in cephalicpresentation. A nuchal CORD is redemonstrated on multiple images. Biophysical profile: movements: 2/2 tone: 2/2 breathing movements: 2/2. Amniotic fluid volume: 2/2 US/US OB placenta IMPRESSION: Single live IUP with an estimated gestational age of 30 weeks and 5 dayswith a normal heart rate. Biophysical profile score: 8/8 A nuchal cord is redemonstrated on multiple images. Impression dictated by: Thomas Ashley M.D. 11/05/2024 2:54 PM Dictation Location: [place] [address] Electronically authenticated by: [id number] Y Date: 4:54 Dictated By: Thomas Ashley M.D. Signed By:11/05/24 1457 DD/ 1454 TD/TT: [employer]: us Willi Christiansen DO [facility] IMAGING Final Result * US OB CERVICAL LENGTH (11/05/2024 2:54 PM EDT) Anatomical Region Laterality Modality Other 11/05/2024 2:54 PM EDT Narrative 11/05/2024 2:57 [place] [address] Ultrasound Report Signed Patient: SHAYLA MARTINEZ MR#: [id number] : 2005 Acct:[id number] Age/Sex: 18 / F ADM Date: Loc: [facility] 253-[address]: Willi Christiansen D.O. Ordering Physician: iWlli Christiansen D.O. Date of Service: 11/05/24 Procedure(s): US OB cervical length Accession Number(s): [id number] cc: Willi Christiansen D.O.; Physician,Non-Staff Arin The [place] [id number] Patient Name: SHAYLA MARTINEZ MRN: [id number]:[id number] date: 2005 Sex: F Assigned Patient Location: [facility] Current Patient Location: [facility] Accession/Order Number: [id number] Exam Date: 11/05/2024 14:48 Report Date: 11/05/2024 14:54 At the request of: WILLI CHRISTIANSEN DO Procedure: US OB cervical length US OB placenta, US OB BPP w non-stress, US OB cervical length 11/05/2024 1:19 PM SIGNS AND SYMPTOMS: Abd. pain spotting, history of nuchal cord COMPARISON: 11/03/2024. TECHNIQUE: Sonography of the gravid uterus. FINDINGS: An intrauterine is identified. The fetus has an estimated gestational age of 30 weeks and 5 days. A heart rate is identified at 134 bpm. A normal amount of amniotic fluid is present. The amniotic fluid index is 10.78 cm. There is no evidence for placenta previa or subchorionic hemorrhage. The placenta is anteriorly located. The cervix measures 3.3 cm in length. The cervical os is closed. The fetus is in cephalic presentation. A nuchal CORD is redemonstrated on multiple images. Biophysical profile: movements: 2/2 tone: 2/2 breathing movements: 2/2. Amniotic fluid volume: 2/2 US/US OB cervical length IMPRESSION: Single live IUP with an estimated gestational age of 30 weeks and 5 days with a normal heart rate. Biophysical profile score: 8/8 A nuchal cord is redemonstrated on multiple images. Impression dictated by: Thomas Ashley M.D. 11/05/2024 2:54 PM Dictation Location: [place] [address] Electronically authenticated by: [id number] Y Date: 11/05/2024 14:54 Dictated By: Thomas Ashley M.D. Signed By: 11/05/24 1457 DD/ 1454 TD/TT: [employer]: Procedure Note Radiology, Radiologist, - 11/05/2024 [place] [address] Ultrasound Report Signed Patient: BRODIE MARTINEZ#: [id number] : 2005Acct:[id number] Age/Sex: 18 / FADM Date: Loc: [facility] 253-[address]: Willi Christiansen D.O. Ordering Physician: Willi Christiansen D.O. Date of Service: 11/05/24 Procedure(s): US OB cervical length Accession Number(s): [id number] cc: Willi Christiansen D.O.; Physician,Non-Staff M.DElliott [place] [address] Patient Name: SHAYLA MARTINEZ MRN: [id number] date: 2005 Sex: F Assigned Patient Location: [facility] Current Patient Location: [facility] Accession/Order Number: [id number] Exam Date: 11/05/2024 14:48 Report Date: 11/05/2024 14:54 At the request of: WILLI CHRISTIANSEN DO Procedure: US OB cervical length US OB placenta, US OB BPP w non-stress, US OB cervical length11/05/2024 1:19 PM SIGNS AND SYMPTOMS: Abd. pain spotting, history of nuchal cord COMPARISON: 11/03/2024. TECHNIQUE: Sonography of the gravid uterus. FINDINGS: An intrauterine is identified. The fetus has an estimated gestational age of 30 weeks and 5 days. A heart rate is identified at 134bpm. A normal amount of amniotic fluid is present. The amniotic fluid index is 10.78 cm. There is no evidence for placenta previa or subchorionic hemorrhage. The placenta is anteriorly located. The cervix measures 3.3cm in length. The cervical os is closed. The fetus is in cephalicpresentation. A nuchal CORD is redemonstrated on multiple images. Biophysical profile: movements: 2/2 tone: 2/2 breathing movements: 2/2. Amniotic fluid volume: 2/2 US/US OB cervical length IMPRESSION: Single live IUP with an estimated gestational age of 30 weeks and 5 dayswith a normal heart rate. Biophysical profile score: 8/8 A nuchal cord is redemonstrated on multiple images. Impression dictated by: Thomas Ashley M.D. 11/05/2024 2:54 PM Dictation Location: [place] [address] Electronically authenticated by: [id number] Y Date: 4:54 Dictated By: Thomas Ashley M.D. Signed By:11/05/24 1457 DD/ 1454 TD/TT: [employer]: Willi Елена DO [facility] IMAGING Final Result * (ABNORMAL) TBH URINE MICROSCOPIC ONLY (11/05/2024 12:15 PM EDT) TBH WBC 2-5(A) NONE SEEN #/HPF TBH TBH RBC 2-5(A) 0 - 2 #/HPF TBH BACTERIA URINE MODERATE(A ) NONE SEEN #/HPF TBH MUCUS URINE SMALL(A) NONE SEEN TBH SQUAMOUS EPITHELIAL CELL URINE MODERATE(A ) NONE/RARE #/LPF TBH CRYSTALS SEEN? None Seen None Seen #/HPF TBH CAST SEEN? NONE SEEN NONE SEEN #/LPF TBH URINE CULTURE INDICATED YES-LC TBH 11/05/2024 12:1 5 PM EDT 11/05/2024 12:28 PM EDT Narrative CLINISYNC - 11/05/2024 12:39 PM EDT Willi Елена DO CLINISYNC Final Result CLINISYNC TB * (ABNORMAL) TBH UA (CLEAN/CATCH) AIRFREIGHT OPERATIONS AGENT/MICRO IF IND. (11/05/2024 12:15 PM EDT) COLOR URINE LT. YELLOW YELLOW TBH CLARITY URINE CLEAR CLEAR TBH SPECIFIC GRAVITY URINE 1.010 1.005 - 1.025 TBH PH URINE 6.5 5.0 - 9.0 TBH PROTEIN URINE NEGATIVE NEG/TRACE mg/dL TBH GLUCOSE URINE UA NEGATIVE NEGATIVE mg/dL TBH BILIRUBIN URINE NEGATIVE NEGATIVE TBH KETONES URINE 15(A) NEGATIVE mg/dL TBH BLOOD URINE NEGATIVE NEGATIVE TBH NITRITE URINE NEGATIVE NEGATIVE TBH UROBILINOGEN URINE 0.2 0.2 - 1.0 EU/dL TBH LEUKOCYTE ESTERASE URINE SMALL(A) NEGATIVE TBH URINE MICROSCOPIC INDICATED YES TBH 11/05/2024 12:1 5 PM EDT 11/05/2024 12:28 PM EDT Narrative CLINISYNC - 11/05/2024 12:39 PM EDT us Willi Christiansen DO CLINISYNC Final Result Performing Organization Address [facility] Co de Phone Number CLINISYNC TBH * (ABNORMAL) TRANSFERRIN (11/03/2024 4:53 PM EDT) Pathologist [facility] TRANSFERRIN 470(A) 192 - 364 mg/dL TB Comment: Performed at: [facility] Lab[address] [id number] [employer] Special Education Teacher: Ez Overton PhD, Phone: [phone] 11/03/2024 4:53 PM EDT 11/03/2024 4:56 PM EDT Narrative CLINISYNC - 11/05/2024 5:07 AM EDT Kristina RHODES LAB BLOOD ORDERABLES Final Resul t Performing Organization Address [facility] Phone Number CLINISYNC TB * MLR HEMOGLOBIN A1C (11/03/2024 4:53 PM EDT) [facility] GLYCOHEMOGLOBIN A1C 5.6 4.5 - 6.2 % [facility] Comment: ADA RECOMMENDED LIMIT 4.0 - 6.0 ADA THERAPEUTIC TARGET < 7.0 ACTION SUGGESTED > 7.0 ESTIMATED AVERAGE GLUCOSE 114 mg/dL TBH 11/03/2024 4:53 PM EDT 11/03/2024 4:56 PM EDT Narrative CLINISYNC - 11/03/2024 6:28 PM EDT Kristina RHODES CLINISYNC Final Result Performing Organization Address [facility] Co de Phone Number CLINISYNC TBH * (ABNORMAL) [facility] FERRITIN (11/03/2024 4:53 PM EDT) Pathologist [facility] FERRITIN 5.0(L) 8.0 - 252.0 ng/mL TBH 11/03/2024 4:53 PM EDT 11/03/2024 4:56 PM EDT Narrative JEANIE - 11/03/2024 6:28 PM EDT Kristina RHODES CLINISYJUAN Final Result [facility] * (ABNORMAL) ALL CBC WITH AUTO DIFF (11/03/2024 4:53 PM EDT) [facility] TBH WBC 10.5 4.0 - 11.0 10 3/uL [...] PM EDT Kristina RHODES CLINISYNC Final Result [facility] * (ABNORMAL) POCT urinalysis dipstick manually resulted (11/03/2024 9:32 AM EDT) Only the most recent of2 resultswithin the time period is included. Color, [...] - 24.689 ppm 10/06/2024 8:11 AM EDT [facility] ACINETOBACTER BAUMANII Not Detected 19.961 - 24.689 ppm 10/06/2024 8:11 AM EDT [facility] CITROBACTER FREUNDII 0.000 23.000 - 31.881 ppm 10/06/2024 8:11 AM EDT [facility] CITROBACTER FREUNDII Not Detected 23.000 - 31.881 ppm 10/06/2024 8:11 AM EDT [facility] ENTEROBACTER AEROGENES, CLOACAE 0.000 23.000 - 31.535 ppm 10/06/2024 8:11 AM EDT [facility] ENTEROBACTER AEROGENES, CLOACAE Not Detected 23.000 - 31.535 ppm 10/06/2024 8:11 AM EDT [facility] ENTEROCOCCUS FAECALIS, FAECIUM 0.000 26.000 - 31.575 ppm 10/06/2024 8:11 AM EDT [facility] ENTEROCOCCUS FAECALIS, FAECIUM Not Detected 26.000 - 31.575 ppm 10/06/2024 8:11 AM EDT [facility] ESCHERICHIA COLI 0.000 23.000 - 28.500 ppm 10/06/2024 8:11 AM EDT [facility] ESCHERICHIA COLI Not Detected 23.000 - 28.500 ppm 10/06/2024 8:11 AM EDT [facility] KLEBSIELLA PNEUMONIAE, OXYTOCA 0.000 23.000 - 30.500 ppm 10/06/2024 8:11 AM EDT [facility] KLEBSIELLA PNEUMONIAE, OXYTOCA Not Detected 23.000 - 30.500 ppm 10/06/2024 8:11 AM EDT [facility] MORGANELLA MORGANII 0.000 19.961 - 24.689 ppm 10/06/2024 8:11 AM EDT [facility] MORGANELLA MORGANII Not Detected 19.961 - 24.689 ppm 10/06/2024 8:11 AM EDT [facility] PROTEUS MIRABILIS, VULGARIS 0.000 23.000 - 28.500 ppm 10/06/2024 8:11 AM EDT [facility] PROTEUS MIRABILIS, VULGARIS Not Detected 23.000 - 28.500 ppm 10/06/2024 8:11 AM EDT [facility] PSEUDOMONAS AERUGINOSA 0.000 23.000 - 28.500 ppm 10/06/2024 8:11 AM EDT [facility] PSEUDOMONAS AERUGINOSA Not Detected 23.000 - 28.500 ppm 10/06/2024 8:11 AM EDT [facility] STAPHYLOCOCCUS AUREUS 0.000 26.000 - 30.902 ppm 10/06/2024 8:11 AM EDT [facility] STAPHYLOCOCCUS AUREUS Not Detected 26.000 - 30.902 ppm 10/06/2024 8:11 AM EDT [facility] STREPTOCOCCUS AGALACTIAE (GROUP B STREP) 20.802(A) 26.000 - 32.222 ppm 10/06/2024 8:11 AM EDT [facility] STREPTOCOCCUS AGALACTIAE (GROUP B STREP) Detected(A) 26.000 - 32.222 ppm 10/06/2024 8:11 AM EDT [facility] REMY ALBICANS, PARAPSILOSIS, TROPICALIS 0.000 19.961 - 30.770 ppm 10/06/2024 8:11 AM EDT [facility] REMY ALBICANS, PARAPSILOSIS, TROPICALIS Not Detected 19.961 - 30.770 ppm 10/06/2024 8:11 AM EDT [facility] REMY GLABRATA 0.000 23.000 - 32.138 ppm 10/06/2024 8:11 AM EDT [facility] REMY GLABRATA Not Detected 23.000 - 32.138 ppm 10/06/2024 8:11 AM EDT [facility] REMY KRUSEI 0.000 23.000 - 32.271 ppm 10/06/2024 8:11 AM EDT [facility] REMY KRUSEI Not Detected 23.000 - 32.271 ppm 10/06/2024 8:11 AM EDT [facility] SERRATIA MARCESCENS 0.000 23.000 - 31.204 ppm 10/06/2024 8:11 AM EDT [facility] SERRATIA MARCESCENS Not Detected 23.000 - 31.204 ppm 10/06/2024 8:11 AM EDT [facility] STREPTOCOCCUS PYOGENES (GROUP A STREP) 0.000 19.961 - 24.689 ppm 10/06/2024 8:11 AM EDT [facility] STREPTOCOCCUS PYOGENES (GROUP A STREP) Not Detected 19.961 - 24.689 ppm 10/06/2024 8:11 AM EDT [facility] STAPHYLOCOCCUS EPIDERMIDIS, HAEMOLYTICUS, LUGDUNENSIS, SAPROPHYTICUS (URINA 0.000 19.961 - 24.689 ppm 10/06/2024 8:11 AM EDT [facility] STAPHYLOCOCCUS EPIDERMIDIS, HAEMOLYTICUS, LUGDUNENSIS, SAPROPHYTICUS (URINA Not Detected 19.961 - 24.689 ppm 10/06/2024 8:11 AM EDT [facility] STAPHYLOCOCCUS EPIDERMIDIS, HAEMOLYTICUS, LUGDUNENSIS, SAPROPHYTICUS (URINA 0.000 19.961 - 24.689 ppm 10/06/2024 8:11 AM EDT [facility] STAPHYLOCOCCUS EPIDERMIDIS, HAEMOLYTICUS, LUGDUNENSIS, SAPROPHYTICUS (URINA Not Detected 19.961 - 24.689 ppm 10/06/2024 8:11 AM EDT [facility] ERMB, C; MEFA 21.295(A) 23.000 - 27.611 ppm 10/06/2024 8:11 AM EDT [facility] ERMB, C; MEFA Detected(A) 23.000 - 27.611 ppm 10/06/2024 8:11 AM EDT [facility] Urine 10/04/2024 4:19 PM EDT 10/06/2024 2:25 AM EDT us Willi Christiansen DO LAB BLOOD ORDERABLES Final Resul t [facility] [address] [place] [id number] from Last 3 Months Insurance [employer] MEDICA[place]
--- OUTSIDE RECORDS SUMMARY | 2024-12-03 14:17 | XMS_ITS | Encounter Summary ---
Author Organization [facility] Address [address] [place] [address] Care Team Providers Care System Auditor Name Role Phone Unavailable Primary Care Provider Unavailabl e Encounter Details Date Type Department Care Team (Late st Contact Info) Description 07/25/2023 Clinisync Result Encounter [facility] External Department Unsolicited Willi Christiansen, DO [address] [facility] [place] [address] Social History Tobacco Use Types [...] AM EST Narrative 07/25/2023 10:13 AM EST The [facility] [address] [place] [address] Ultrasound Report Signed Patient: SHAYLA MARTINEZ MR#: [id number] : 2005 Acct:[id number] Age/Sex: 17 / F ADM Date: 07/25/23 Loc: [facility] Attending Dr: Willi Christiansen D.O. Ordering Physician: Willi Christiansen D.O. Date of Service: 07/25/23 Procedure(s): US OB transvaginal Accession Number(s): [id number] cc: Willi Christiansen D.O.; Physician,Non-Staff Arin The [place] [id number] Patient Name: SHAYLA MARTINEZ MRN: [facility]:[id number] date: 2005 Sex: F Assigned Patient Location: [facility] Current Patient Location: [facility] Accession/Order Number: [id number] Exam Date: 07/25/2023 09:33 Report Date: 07/25/2023 [...] Signed By: 07/25/23 1013 DD/ 1011 TD/TT: Drawing Press Operator: Procedure Note Radiology, Radiologist, MD - 07/25/[address] [address] Ultrasound Report Signed Patient: BRODIE MARTINEZ#: [id number] : 2005Acct:[id number] Age/Sex: 17 / FADM Date: 07/25/23 Loc: [facility] Attending Dr: Willi Christiansen D.O. Ordering Physician: Willi Christiansen D.O. Date of Service: 07/25/23 Procedure(s): US OB transvaginal Accession Number(s): [id number] cc: Willi Christiansen D.O.; Physician,Non-Staff Arin [place] [address] Patient Name: SHAYLA MARTINEZ MRN: [id number] date: 2005 Sex: F Assigned Patient Location: [facility] Current Patient Location: [facility] Accession/Order Number: [id number] Exam Date: 07/25/2023 09:33 Report Date: 07/25/2023 [...] M.D. Signed By:07/25/23 1013 DD/ 1011 TD/TT: Drawing Press Operator: us Willi Christiansen DO [facility] Final Result documented in this encounter Visit Diagnoses Not on filedocumented in this encounter
--- OUTSIDE RECORDS SUMMARY | 2024-12-03 14:17 | XMS_ITS | Encounter Summary ---
Author Organization [facility] Address [address] [place] [address] Care Team Providers Care Laborer Concrete Plant Name Role Phone Unavailable Primary Care Provider Unavailabl e Encounter Details Date Type Department Care Team (Late st Contact Info) Description 02/12/2024 Abstract [facility] OB [address] [facility] [place] [address] Nelson Christiansen, DO [address] [place] R[place]a, [facility] [address] Social History Tobacco Use Types Packs/Day [...]
--- OUTSIDE RECORDS SUMMARY | 2024-12-03 14:17 | XMS_ITS | Encounter Summary ---
Author Organization [facility] Address [address] [place] [address] Care Team Providers Care Transactional Paralegal Name Role Phone Unavailable Primary Care Provider Unavailabl e Encounter Details Date Type Department Care Team (Late st Contact Info) Description 02/10/2024 Abstract [facility] OB [address] [place] [address] Nelson Christiansen, DO [address] [place] R[place]a, [facility] Social History Tobacco Use Types Packs/Day [...]
--- OUTSIDE RECORDS SUMMARY | 2024-12-03 14:17 | XMS_ITS | Encounter Summary ---
Author Organization [facility] Address [address] [place] [address] Care Team Providers Care Bale Opener Name Role Phone Unavailable Primary Care Provider Unavailabl e Encounter Details Date Type Department Care Team (Late st Contact Info) Description 11/29/2024 Abstract [facility] OB [address] [place] [address] Nelson Christiansen, DO [address] [place]a, [facility]11 Social History Tobacco Use Types Packs/Day [...]
--- OUTSIDE RECORDS SUMMARY | 2024-12-03 14:17 | XMS_ITS | Patient Health Record ---
Author Organization [employer] [facility] Address [address] [place] [address] Care Team Providers Care Tong Setter Name Role Phone Stefania Loving Primary Care Provider [phone] Reason For Referral No Information Problems No Known Problems Plan Of Treatment No Information Insurance Providers Payer Name Payer Address Payer Phone Subscriber Number Group Number Insured Name Patient Relationship to Insured Coverage Start Date Coverage End Date [employer] ermed [address] [place] [address] [id number] KALYN MARTINEZ Self - patient [facility] the [facility] after [employer]t [employer] [address] [place] [address] [id number] KALYN MARTINEZ Self - patient is the insured Medical (General) History Medical History History ICD Code LEVEL 1
--- OUTSIDE RECORDS SUMMARY | 2024-12-03 14:17 | XMS_ITS | Encounter Summary ---
Author Organization [facility] Address [address] [place] [address] Care Team Providers Care Professional Application Designer Name Role Phone Unavailable Primary Care Provider Unavailabl e Encounter Details Date Type Department Care Team (Late st Contact Info) Description 02/02/2024 Abstract [facility] OB [address] [facility] [place] [address] Nelson Christiansen, DO [address] [place] Rueda, [facility] Social History Tobacco Use Types Packs/Day [...]
--- OUTSIDE RECORDS SUMMARY | 2024-12-03 14:17 | XMS_ITS | Encounter Summary ---
Author Organization [facility] Address [address] [place] [address] Care Team Providers Care Electric Distribution Checker Name Role Phone Unavailable Primary Care Provider Unavailabl e Encounter Details Date Type Department Care Team (Late st Contact Info) Description 06/28/2024 Abstract [facility] OB [address] [place] [phone] Nelson Christiansen, DO [address] [place], [facility]11 Social History Tobacco Use Types Packs/Day [...]
--- OUTSIDE RECORDS SUMMARY | 2024-12-03 14:17 | XMS_ITS | Encounter Summary ---
Author Organization [facility] Address [address] [place] [address] Care Team Providers Care Senior Field Service Engineer Name Role Phone Unavailable Primary Care Provider Unavailabl e Encounter Details Date Type Department Care Team (Late st Contact Info) Description 10/21/2023 Clinisync Result Encounter [facility] External Department Unsolicited Willi Christiansen, DO [address] [place] [address] Social History Tobacco Use Types [...] AM EDT Narrative 10/21/2023 8:[address] [facility] [address] [place] [address] Ultrasound Report Signed Patient: SHAYLA MARTINEZ MR#: [id number] : 2005 Acct:[id number] Age/Sex: 17 / F ADM Date: 10/20/23 Loc: US Attending Dr: Willi Christiansen D.O. Ordering Physician: Willi Christiansen D.O. Date of Service: 10/20/23 Procedure(s): US OB anatomy Accession Number(s): [id number] cc: Willi Christiansen D.O.; Physician,Non-Staff Arin [place] [id number] Patient Name: SHAYLA MARTINEZ MRN: [id number] date: 2005 Sex: F Assigned Patient Location: US Current Patient Location: Accession/Order Number: [id number] Exam Date: 10/20/2023 15:00 Report Date: 10/21/2023 [...] M.D. Signed By: 10/21/23829 DD/ 6 TD/TT: Seat Coverer: Procedure Note Radiology, Radiologist, MD - 10/21/2023 [place] [address] Ultrasound Report Signed Patient: BRODIE MARTINEZ#: [id number] : 2005Acct:[id number] Age/Sex: 17 / FADM Date: 10/20/23 Loc: US Attending Dr: Willi Christiansen D.O. Ordering Physician: Willi Christiansen D.O. Date of Service: 10/20/23 Procedure(s): US OB anatomy Accession Number(s): [id number] cc: Willi Christiansen D.O.; Physician,Non-Staff Arin The [place] [id number] Patient Name: SHAYLA MARTINEZ MRN: [facility]:[id number] date: 2005 Sex: F Assigned Patient Location: US Current Patient Location: Accession/Order Number: [id number] Exam Date: 10/20/2023 15:00 Report Date: 10/21/2023 [...] 08:27 Dictated By: Seferino Solano M.D. Signed By:10/21/2330 DD/ 6 TD/TT: Seat Coverer: [facility] Final Result documented in this encounter Visit Diagnoses Not on filedocumented in this encounter
--- OUTSIDE RECORDS SUMMARY | 2024-12-03 14:17 | XMS_ITS | Encounter Summary ---
Author Organization [facility] Address [address] [place] [address] Care Team Providers Care Quality Assurance Monitor Final Name Role Phone Unavailable Primary Care Provider Unavailabl e Encounter Details Date Type Department Care Team (Late st Contact Info) Description 01/03/2024 Clinisync Result Encounter [facility] External Department Unsolicited Willi Christiansen, DO [address] [facility] [address] [place], [place] [id number] Social History Tobacco Use Types Packs/Day Years [...] AM EDT Narrative 01/03/2024 8:40 AM EDT The [facility] [address] [place] [address] Ultrasound Report Signed Patient: SHAYLA MARTINEZ MR#: [id number] : 2005 Acct:[id number] Age/Sex: 18 / F ADM Date: Loc: [facility] Attending Dr: Willi Christiansen D.O. Ordering Physician: Willi Christiansen D.O. Date of Service: 01/03/24 Procedure(s): US OB cervical length Accession Number(s): [id number] cc: Willi Christiansen D.O.; Physician,Non-Staff Arin The [address] [address] Patient Name: SHAYLA MARTINEZ MRN: [facility]:[id number] date: 2005 Sex: F Assigned Patient Location: [facility] Current Patient Location: [facility] Accession/Order Number: [id number] Exam Date: 01/03/2024 07:11 Report Date: 01/03/2024 [...] Signed By: 01/03/24 0840 DD/ 0837 TD/TT: Card Painter: Procedure Note Radiology, Radiologist, MD - 01/03/2024 [place] [address] Ultrasound Report Signed Patient: BRODIE MARTINEZ#: [id number] : 2005Acct:[id number] Age/Sex: 18 / FADM Date: Loc: [facility] [address]: Willi Christiansen D.O. Ordering Physician: Willi Christiansen D.O. Date of Service: 01/03/24 Procedure(s): US OB cervical length Accession Number(s): [id number] cc: Willi Christiansen D.O.; Physician,Non-Staff Arin [place] [id number] Patient Name: SHAYLA MARTINEZ MRN: [facility]:[id number] date: 2005 Sex: F Assigned Patient Location: [facility] Current Patient Location: [facility] Accession/Order Number: [id number] Exam Date: 01/03/2024 07:11 Report Date: 01/03/2024 [...] M.D. Signed By:01/03/24 0840 DD/ 0837 TD/TT: Card Painter: Willi Christiansen DO [facility] Final Result documented in this encounter Visit Diagnoses Not on filedocumented in this encounter
--- OUTSIDE RECORDS SUMMARY | 2024-12-03 14:17 | XMS_ITS | Encounter Summary ---
Author Organization [facility] Address [address] [place] [address] Care Team Providers Care Hyster Driver Name Role Phone Unavailable Primary Care Provider Unavailabl e Encounter Details Date Type Department Care Team (Late st Contact Info) Description 01/03/2024 Clinisync Result Encounter [facility] External Department Unsolicited Willi Christiansen, DO 102 [facility] [place] [address] Social History Tobacco Use Types [...] EDT Narrative 01/03/2024 8:40 AM EDT The [facility] [address] [place] [address] Ultrasound Report Signed Patient: SHAYLA MATRINEZ MR#: [id number] : 2005 Acct:[id number] Age/Sex: 18 / F ADM Date: Loc: [facility] Attending Dr: Willi Christiansen D.O. Ordering Physician: Willi Christiansen D.O. Date of Service: 01/03/24 Procedure(s): US OB placenta Accession Number(s): [id number] cc: Willi Christiansen D.O.; Physician,Non-Staff Arin The [address] [address] Patient Name: SHAYLA MARTINEZ MRN: [facility]:[id number] date: 2005 Sex: F Assigned Patient Location: [facility] Current Patient Location: [facility] Accession/Order Number: [id number] Exam Date: 01/03/2024 07:11 Report Date: 01/03/2024 [...] Signed By: 01/03/24 0840 DD/ 0837 TD/TT: Pattern Clerk: Procedure Note Radiology, Radiologist, MD - 01/03/2024 [place] [address] Ultrasound Report Signed Patient: BRODIE MARTINEZ#: [id number] : 2005Acct:[id number] Age/Sex: 18 / FADM Date: Loc: [facility] Attending Dr: Willi Christiansen D.O. Ordering Physician: Willi Christiansen D.O. Date of Service: 01/03/24 Procedure(s): US OB placenta Accession Number(s): [id number] cc: Willi Christiansen D.O.; Physician,Non-Staff Arin [address] [address] Patient Name: SHAYLA MARTINEZ MRN: [facility]:[id number] date: 2005 Sex: F Assigned Patient Location: [facility] Current Patient Location: [facility] Accession/Order Number: [id number] Exam Date: 01/03/2024 07:11 Report Date: 01/03/2024 [...] M.D. Signed By:01/03/24 0840 DD/ 0837 TD/TT: Pattern Clerk: us Willi Christiansen DO [facility] Final Result documented in this encounter Visit Diagnoses Not on filedocumented in this encounter
--- OUTSIDE RECORDS SUMMARY | 2024-12-03 14:17 | XMS_ITS | Encounter Summary ---
Author Organization [facility] Address [address] [place] [address] Care Team Providers Care Supervisory It Specialist Name Role Phone Unavailable Primary Care Provider Unavailabl e Encounter Details Date Type Department Care Team (Late st Contact Info) Description 01/26/2024 Abstract [facility] OB [address] [facility] [place] [address] Nelson Christiansen, DO [address] [facility] [address] [place], [facility]11 Social History Tobacco Use Types Packs/Day [...]
--- OUTSIDE RECORDS SUMMARY | 2024-12-03 14:17 | XMS_ITS | Encounter Summary ---
Author Organization [facility] Address [address] [place] [address] Care Team Providers Care Manager Of Sustainability Name Role Phone Unavailable Primary Care Provider Unavailabl e Encounter Details Date Type Department Care Team (Late st Contact Info) Description 01/03/2024 Clinisync Result Encounter [facility] External Department Unsolicited Willi Christiansen, DO [address] [facility] [address] [place] [id number] Social History Tobacco Use Types Packs/Day Years [...] AM EDT Narrative 01/03/2024 9:04 AM EDT The [facility] [address] [place] [address] Ultrasound Report Signed Patient: SHAYLA MARTINEZ MR#: [id number] : 2005 Acct:[id number] Age/Sex: 18 / F ADM Date: Loc: [facility] 251- Attending Dr: Willi Christiansen D.O. Ordering Physician: Willi Christiansen D.O. Date of Service: 01/03/24 Procedure(s): US OB BPP w non-stress Accession Number(s): [id number] cc: Willi Christiansen D.O.; Physician,Non-Staff Arin The [place] [id number] Patient Name: SHAYLA MARTINEZ MRN: [id number] date: 2005 Sex: F Assigned Patient Location: [facility] Current Patient Location: [facility] Accession/Order Number: [id number] Exam Date: 01/03/2024 07:11 Report Date: 01/03/2024 [...] Maritza Hdez M.D. Signed By: 01/03/24903 DD/ 09 TD/TT: Associate Sales Representative: Procedure Note Radiology, Radiologist, MD - 01/03/2024 [place] [address] Ultrasound Report Signed Patient: BRODIE MARTINEZ#: [id number] : 2005Acct:[id number] Age/Sex: 18 / FADM Date: Loc: [facility] 251- Attending Dr: Willi Christiansen D.O. Ordering Physician: Willi Christiansen D.O. Date of Service: 01/03/24 Procedure(s): US OB BPP w non-stress Accession Number(s): [id number] cc: Willi Christiansen D.O.; Physician,Non-Staff Arin [place] [address] Patient Name: SHAYLA MARTINEZ MRN: [facility]:[id number] date: 2005 Sex: F Assigned Patient Location: [facility] Current Patient Location: [facility] Accession/Order Number: [id number] Exam Date: 01/03/2024 07:11 Report Date: 01/03/2024 [...] Hdez M.D. Signed By:01/03/2404 DD/ 0 TD/TT: Associate Sales Representative: us Willi Christiansen DO [facility] Final Result documented in this encounter Visit Diagnoses Not on filedocumented in this encounter
--- OUTSIDE RECORDS SUMMARY | 2024-12-03 14:17 | XMS_ITS | Encounter Summary ---
Author Organization [facility] Address [address] [facility] [place] [address] Care Team Providers Care Edge Runner Name Role Phone Unavailable Primary Care Provider Unavailabl e Encounter Details Date Type Department Care Team (Late st Contact Info) Description 10/07/2024 Results Follow-Up [facility] OB [address] [place] [phone] Mini Thorne LPN [address] [place] [phone] Social History Tobacco Use Types Packs/Day Years [...] documented in this encounter Plan of Treatment Not on file documented as of this encounter Visit Diagnoses Not on filedocumented in this encounter
--- OUTSIDE RECORDS SUMMARY | 2024-12-03 14:17 | XMS_ITS | Encounter Summary ---
Author Organization [facility] Address [address] [place] [address] Care Team Providers Care Greenhouse Assistant Name Role Phone Unavailable Primary Care Provider Unavailabl e Encounter Details Date Type Department Care Team (Late st Contact Info) Description 01/23/2024 Abstract [facility] OB [address] [place] [address] Nelson Christiansen, DO [address] [facility] [address] [place], [facility] Social History Tobacco Use Types Packs/Day Years [...]
--- OUTSIDE RECORDS SUMMARY | 2024-12-03 14:17 | XMS_ITS | Encounter Summary ---
Author Organization [facility] Address [address] [place] [address] Care Team Providers Care Body Technician/Painter Name Role Phone Unavailable Primary Care Provider Unavailabl e Encounter Details Date Type Department Care Team (Late st Contact Info) Description 11/05/2023 Clinisync Result Encounter [facility] External Department Unsolicited Willi Christiansen, DO [address] [facility] [address] [place], [place] [id number] Social History Tobacco Use Types Packs/Day Years [...] PM EDT Narrative 11/05/2023 1:23 PM EDT [address] [address] Ultrasound Report Signed Patient: SHAYLA MARTINEZ MR#: [id number] : 2005 Acct:[id number] Age/Sex: 17 / F ADM Date: 11/05/23 Loc: [facility] Attending Dr: Willi Christiansen D.O. Ordering Physician: Willi Christiansen D.O. Date of Service: 11/05/23 Procedure(s): US OB cervical length Accession Number(s): [id number] cc: Willi Christiansen D.O.; Physician,Non-Staff Arin [address] [address] Patient Name: SHAYLA MARTINEZ MRN: [facility]:[id number] date: 2005 Sex: F Assigned Patient Location: [facility] Current Patient Location: [facility] Accession/Order Number: [id number] Exam Date: 11/05/2023 11:05 Report Date: 11/05/2023 13:20 At the request of: WILLI CHRISTINASEN Procedure: US OB cervical length EXAM: US [...] Signed By: 11/05/23 1323 DD/ 1320 TD/TT: Curriculum Development Coordinator: Procedure Note Radiology, Radiologist, MD - 11/05/2023 The [place] [id number] Ultrasound Report Signed Patient: BRODIE MARTINEZ#: [id number] : 2005Acct:[id number] Age/Sex: 17 / FADM Date: 11/05/23 Loc: [facility] Attending Dr: Willi Christiansen D.O. Ordering Physician: Willi Christiansen D.O. Date of Service: 11/05/23 Procedure(s): US OB cervical length Accession Number(s): [id number] cc: Willi Christiansen D.O.; Physician,Non-Staff Arin The [place] [id number] Patient Name: SHAYLA MARTINEZ MRN: [facility]:[id number] date: 2005 Sex: F Assigned Patient Location: [facility] Current Patient Location: [facility] Accession/Order Number: [id number] Exam Date: 11/05/2023 11:05 Report Date: 11/05/2023 [...] M.D. Signed By:11/05/23 1324 DD/ 1320 TD/TT: Curriculum Development Coordinator: us Willi Christiansen DO [facility] Final Result documented in this encounter Visit Diagnoses Not on filedocumented in this encounter
--- OUTSIDE RECORDS SUMMARY | 2024-12-03 14:17 | XMS_ITS | Encounter Summary ---
Author Organization [facility] Address [address] [place] [address] Care Team Providers Care Heating Worker Name Role Phone Unavailable Primary Care Provider Unavailabl e Encounter Details Date Type Department Care Team (Late st Contact Info) Description 01/07/2024 Abstract [facility] OB [address] [place] [address] Nelson Christiansen, DO [address] [place]a [place]ueda, [facility]11 Social History Tobacco Use Types [...]
--- OUTSIDE RECORDS SUMMARY | 2024-12-03 14:17 | XMS_ITS | Encounter Summary ---
Author Organization [facility] Address [address] [place] [address] Care Team Providers Care Packaging Mechanic Name Role Phone Unavailable Primary Care Provider Unavailabl e Encounter Details Date Type Department Care Team (Late st Contact Info) Description 10/21/2023 Clinisync Result Encounter [facility] External Department Unsolicited Willi Christiansen, DO [address] [facility] [place] [address] Social History Tobacco Use Types [...] EDT Narrative 10/21/2023 8:30 AM EDT The [facility] [address] [place] [address] Ultrasound Report Signed Patient: SHAYLA MARTINEZ MR#: [id number] : 2005 Acct:[id number] Age/Sex: 17 / F ADM Date: 10/20/23 Loc: US Attending Dr: Willi Christiansen D.O. Ordering Physician: Willi Christiansen D.O. Date of Service: 10/20/23 Procedure(s): US OB cervical length Accession Number(s): [id number] cc: Willi Christiansen D.O.; Physician,Non-Staff [place] [address] Patient Name: SHAYLA MARTINEZ MRN: [facility]:[id number] date: 2005 Sex: F Assigned Patient Location: US Current Patient Location: Accession/Order Number: [id number] Exam Date: 10/20/2023 15:00 Report Date: 10/21/2023 [...] M.D. Signed By: 10/21/23829 DD/ 6 TD/TT: Sheetrock Applicator: Procedure Note Radiology, Radiologist, MD - 10/21/2023 [place] [address] Ultrasound Report Signed Patient: BRODIE MARTINEZ#: [id number] : 2005Acct:[id number] Age/Sex: 17 / FADM Date: 10/20/23 Loc: US Attending Dr: Willi Christiansen D.O. Ordering Physician: Willi Christiansen D.O. Date of Service: 10/20/23 Procedure(s): US OB cervical length Accession Number(s): [id number] cc: Willi Christiansen D.O.; Physician,Non-Staff Arin The [place] [address] Patient Name: SHAYLA MARTINEZ MRN: [id number] date: 2005 Sex: F Assigned Patient Location: US Current Patient Location: Accession/Order Number: [id number] Exam Date: 10/20/2023 15:00 Report Date: 10/21/2023 [...] Solano M.D. Signed By:10/21/2330 DD/ 6 TD/TT: Sheetrock Applicator: us Willi Елена DO [facility] Final Result documented in this encounter Visit Diagnoses Not on filedocumented in this encounter
--- OUTSIDE RECORDS SUMMARY | 2024-12-03 14:17 | XMS_ITS | Encounter Summary ---
Author Organization [facility] Address [address] [place] [address] Care Team Providers Care Extraction Supervisor Name Role Phone Unavailable Primary Care Provider Unavailabl e Encounter Details Date Type Department Care Team (Late st Contact Info) Description 11/05/2024 Abstract [facility] OB [address] [place] [address] Nelson Christiansen, DO [address] [place], [facility]11 Social History Tobacco Use [...]
--- NOTE | 2024-12-03 15:12 | US_ITS ---
[place] [address] Patient Name: KALYN MARTINEZ MRN: [id number] date: 2005 Sex: F Assigned Patient [place] [facility] Current Patient Location: Accession/Order Number: [id number] Exam Date: 12/03/2024 16:04 Report Date: 12/03/2024 16:05 At the request of: WILLI ZAMBRANO DO Procedure: US OB BPP w non-stress Ultrasound biophysical profile HISTORY: Large for gestational age Adequate breathing movement, gross body movement, tone and amniotic fluid volume for total score of 8 out of 8. The amniotic fluid index is 16.2cm within normal limits. The heart rate 146 bpm. US/US OB BPP w non-stress IMPRESSION: Adequate ultrasound biophysical profile Impression dictated by: Froy Ladd M.D. 12/03/2024 4:05 PM Dictation Location: [place] [address] Electronically authenticated by: [id number] Y Date: 12/03/2024 16:05
[2024-12-03 15:42] VITALS: BP 135/60; PULSE 80
== END 2024-12-03 15:44 | disposition home or self-care (01) ==
LOC: FBCO 14:14 → FBC 14:28
PROVIDERS: Visit Provider Obstetrics & Gynecology
DX: O36.5930 Maternal care for other known or suspected poor fetal growth, third trimester, not applicable or unspecified (principal); Z3A.35 35 weeks gestation of pregnancy
CPT/HCPCS: 76818

== ENCOUNTER 2024-12-08 14:32 | Outpatient (OUT) | payer MEDICAID, SELFPAY ==
--- OUTSIDE RECORDS SUMMARY | 2024-12-08 14:34 | XMS_ITS | Encounter Summary ---
Author Organization [facility] Address [address] [place] [address] Care Team Providers Care Die Cutting Machine Operator Name Role Phone Unavailable Primary Care Provider Unavailabl e Encounter Details Date Type Department Care Team (Late st Contact Info) Description 11/05/2024 Abstract [facility] OB [address] [place] [address] Nelson Christiansen, DO [address] [place]a, [facility]11 Social History Tobacco Use Types Packs/Day [...]
--- OUTSIDE RECORDS SUMMARY | 2024-12-08 14:34 | XMS_ITS | Encounter Summary ---
Author Organization [facility] Address [address] [place] [address] Care Team Providers Care Hall Manager Name Role Phone Unavailable Primary Care Provider Unavailabl e Encounter Details Date Type Department Care Team (Late st Contact Info) Description 10/07/2024 Results Follow-Up [facility] OB [address] [facility] [place] [phone] Mini Thorne LPN [address] [place] [id number] Social History Tobacco Use Types Packs/Day Years [...]
--- OUTSIDE RECORDS SUMMARY | 2024-12-08 14:35 | XMS_ITS | Encounter Summary ---
Author Organization [facility] Address [address] [place] [address] Care Team Providers Care Cheese Production Supervisor Name Role Phone Unavailable Primary Care Provider Unavailabl e Encounter Details Date Type Department Care Team (Late st Contact Info) Description 10/21/2023 Clinisync Result Encounter NOMS External Department Unsolicited Willi Christiansen, DO [address] [facility] [place] [address] Social History Tobacco Use Types [...] Narrative 10/21/2023 8:30 AM EDT The [facility] [address] [place] [address] Ultrasound Report Signed Patient: SHAYLA AMRTINEZ MR#: [id number] : 2005 Acct:[id number] Age/Sex: 17 / F ADM Date: 10/20/23 Loc: US Attending Dr: Willi Christiansen D.O. Ordering Physician: Willi Christiansen D.O. Date of Service: 10/20/23 Procedure(s): US OB cervical length Accession Number(s): [id number] cc: Willi Christiansen D.O.; Physician,Non-Staff MFrancesca [place] [address] Patient Name: SHAYLA MARTINEZ MRN: [facility]:[id number] date: 2005 Sex: F Assigned Patient Location: US Current Patient Location: Accession/Order Number: [id number] Exam Date: 10/20/2023 15:00 Report Date: 10/21/2023 [...] M.D. Signed By: 10/21/23829 DD/ 6 TD/TT: Enamel Finisher: Procedure Note Radiology, Radiologist, MD - 10/21/2023 [place] [address] Ultrasound Report Signed Patient: BRODIE MARTINEZ#: [id number] : 2005Acct:[id number] Age/Sex: 17 / FADM Date: 10/20/23 Loc: US Attending Dr: Willi Christiansen D.O. Ordering Physician: Willi Christiansen D.O. Date of Service: 10/20/23 Procedure(s): US OB cervical length Accession Number(s): [id number] cc: Willi Christiansen D.O.; Physician,Non-Staff Arin The [place] [address] Patient Name: SHAYLA MARTINEZ MRN: [id number] date: 2005 Sex: F Assigned Patient Location: US Current Patient Location: Accession/Order Number: [id number] Exam Date: 10/20/2023 15:00 Report Date: 10/21/2023 [...] Solano M.D. Signed By:10/21/2330 DD/ 6 TD/TT: Enamel Finisher: us Willi Елена DO [facility] Final Result documented in this encounter Visit Diagnoses Not on filedocumented in this encounter
--- OUTSIDE RECORDS SUMMARY | 2024-12-08 14:35 | XMS_ITS | Encounter Summary ---
Author Organization [facility] Address [address] [place] [address] Care Team Providers Care Wire Spring Relay Adjuster Name Role Phone Unavailable Primary Care Provider Unavailabl e Encounter Details Date Type Department Care Team (Late st Contact Info) Description 06/28/[address] [facility] OB [address] [place] [address] Nelson Christiansen, DO [address] [place], [facility]11 Social History Tobacco Use Types Packs/Day [...]
--- OUTSIDE RECORDS SUMMARY | 2024-12-08 14:35 | XMS_ITS | Encounter Summary ---
Author Organization [facility] Address [address] [place] [address] Care Team Providers Care Analytical Chemist Name Role Phone Unavailable Primary Care Provider Unavailabl e Encounter Details Date Type Department Care Team (Late st Contact Info) Description 01/07/2024 Abstract [facility] OB [address] [place] [address] Nelson Christiansen, DO [address] [facility] [address] [place], [facility]11 Social History Tobacco Use Types [...]
--- OUTSIDE RECORDS SUMMARY | 2024-12-08 14:35 | XMS_ITS | Encounter Summary ---
Author Organization [facility] Address [address] [place] [address] Care Team Providers Care Personnel Adviser Name Role Phone Unavailable Primary Care Provider Unavailabl e Encounter Details Date Type Department Care Team (Late st Contact Info) Description 12/03/2024 Clinisync Result Encounter [facility] External Department Unsolicited Willi Christiansen, DO [address] [facility] [place] [address] Social History Tobacco Use Types [...] Diagnosis Comments US OB BPP W NON-STRESS 12/03/2024 4:05 PM EDT documented in this encounter Results * US OB BPP W NON-STRESS (12/03/2024 4:05 PM EDT) Anatomical Region Laterality Modality Other 12/03/2024 4:05 PM EDT Narrative 12/03/2024 4:07 PM EDT The [facility] [address] [place] [address] Ultrasound Report Signed Patient: SHAYLA MARTINEZ MR#: [id number] : 2005 Acct:[id number] Age/Sex: 18 / F ADM Date: 12/03/24 Loc: FBCO Attending Dr: Willi Christiansen D.O. Ordering Physician: Willi Christiansen D.O. Date of Service: 12/03/24 Procedure(s): US OB BPP w non-stress Accession Number(s): [id number] cc: Willi Christiansen D.O.; Physician,Non-Staff Arin The [place] [address] Patient Name: SHAYLA MARTINEZ MRN: [id number] date: 2005 Sex: F Assigned Patient Location: [facility] Current Patient Location: Accession/Order Number: [id number] Exam Date: 12/03/2024 16:04 Report Date: 12/03/2024 16:05 At the request of: WILLI CHRISTIANSEN DO Procedure: US OB BPP w non-stress Ultrasound biophysical profile HISTORY: Large for gestational age Adequate breathing movement, gross body movement, tone and amniotic fluid volume for total score of 8 out of 8. The amniotic fluid index is 16.2cm within normal limits. The heart rate 146 bpm. US/US OB BPP w non-stress IMPRESSION: Adequate ultrasound biophysical profile Impression dictated by: Froy Ladd M.D. 12/03/2024 4:05 PM Dictation Location: [place] [address] Electronically authenticated by: [id number] Y Date: 12/03/2024 16:05 Dictated By: Froy Ladd D.O. Signed By: 12/03/24 1607 DD/ 160 TD/TT: Supervisor Forming And Tempering: Procedure Note Radiology, Radiologist, - 12/03/2024 [place] [address] Ultrasound Report Signed Patient: BETHANIE MARTINEZR#: [id number] : 2005Acct:[id number] Age/Sex: 18 / FADM Date: 12/03/24 Loc: FBCO Attending Dr: Willi Christiansen D.O. Ordering Physician: Willi Christiansen D.O. Date of Service: 12/03/24 Procedure(s): US OB BPP w non-stress Accession Number(s): [id number] cc: Willi Christiansen D.O.; Physician,Non-Staff MFrancesca [place] [address] Patient Name: SHAYLA MARTINEZ MRN: [id number] date: 2005 Sex: F Assigned Patient Location: [facility] Current Patient Location: Accession/Order Number: [id number] Exam Date: 12/03/2024 16:04 Report Date: 12/03/2024 16:05 At the request of: WILLI CHRISTIANSEN DO Procedure: US OB BPP w non-stress Ultrasound biophysical profile HISTORY: Large for gestational age Adequate breathing movement, gross body movement, tone and amniotic fluid volume for total score of 8 out of 8. The amniotic fluidindex is 16.2cm within normal limits. The heart rate 146 bpm. US/US OB BPP w non-stress IMPRESSION: Adequate ultrasound biophysical profile Impression dictated by: Froy Ladd M.D. 12/03/2024 4:05 PM Dictation Location: [place] [address] Electronically authenticated by: [id number] Y Date: 6:05 Dictated By: Froy Ladd D.O. Signed By:12/03/24 1607 DD/ 1605 TD/TT: Supervisor Forming And Tempering: us Willi Christiansen DO [facility] Final Result documented in this encounter Visit Diagnoses Not on filedocumented in this encounter
--- OUTSIDE RECORDS SUMMARY | 2024-12-08 14:35 | XMS_ITS | Encounter Summary ---
Author Organization [facility] Address [address] [place] [address] Care Team Providers Care Boarder Steam Name Role Phone Unavailable Primary Care Provider Unavailabl e Encounter Details Date Type Department Care Team (Late st Contact Info) Description 11/05/2023 Clinisync Result Encounter [facility] External Department Unsolicited Willi Christiansen, DO [address] [facility] [place] [address] Social History Tobacco Use Types [...] EDT Narrative 11/05/2023 1:23 PM EDT The [facility] [address] [place] [address] Ultrasound Report Signed Patient: SHAYLA MARTINEZ MR#: [id number] : 2005 Acct:[id number] Age/Sex: 17 / F ADM Date: 11/05/23 Loc: NOMS Attending Dr: Willi Christiansen D.O. Ordering Physician: Willi Christiansen D.O. Date of Service: 11/05/23 Procedure(s): US OB placenta Accession Number(s): [id number] cc: Willi Christiansen D.O.; Physician,Non-Staff Arin The [address] [address] Patient Name: SHAYLA MARTINEZ MRN: [id number] date: 2005 Sex: F Assigned Patient Location: [facility] Current Patient Location: [facility] Accession/Order Number: [id number] Exam Date: 11/05/2023 11:04 Report Date: 11/05/2023 [...] Signed By: 11/05/23 1323 DD/ 1320 TD/TT: Barrel Inspector Tight: Procedure Note Radiology, Radiologist, MD - 11/05/2023 The [place] [id number] Ultrasound Report Signed Patient: BRODIE MARTINEZ#: [id number] : 2005Acct:[id number] Age/Sex: 17 / FADM Date: 11/05/23 Loc: NOMS Attending Dr: Willi Christiansen D.O. Ordering Physician: Willi Christiansen D.O. Date of Service: 11/05/23 Procedure(s): US OB placenta Accession Number(s): [id number] cc: Willi Christiansen D.O.; Physician,Non-Staff Arin [place] [id number] Patient Name: SHAYLA MARTINEZ MRN: [facility]:[id number] date: 2005 Sex: F Assigned Patient Location: [facility] Current Patient Location: [facility] Accession/Order Number: [id number] Exam Date: 11/05/2023 11:04 Report Date: 11/05/2023 [...] M.D. Signed By:11/05/23 1323 DD/ 1320 TD/TT: Barrel Inspector Tight: us Willi Christiansen DO [facility] Final Result documented in this encounter Visit Diagnoses Not on filedocumented in this encounter
--- OUTSIDE RECORDS SUMMARY | 2024-12-08 14:35 | XMS_ITS | Encounter Summary ---
Author Organization [facility] Address [address] [place] [address] Care Team Providers Care Wire Photo Operator Name Role Phone Unavailable Primary Care Provider Unavailabl e Encounter Details Date Type Department Care Team (Late st Contact Info) Description 02/10/2024 Abstract [facility] OB [address] [facility] [address] Nelson Christiansen, DO [address] [facility] [address] [place], [facility]11 Social History Tobacco Use Types Packs/Day [...]
--- OUTSIDE RECORDS SUMMARY | 2024-12-08 14:35 | XMS_ITS | Patient Health Record ---
Author Organization [employer] Address [address] [place] [address] Care Team Providers Care Sales Representative Wire Rope Name Role Phone Stefania Loving Primary Care Provider [phone] Reason For Referral No Information Problems No Known Problems Plan Of Treatment No Information Insurance Providers Payer Name Payer Address Payer Phone Subscriber Number Group Number Insured Name Patient Relationship to Insured Coverage Start Date Coverage End Date [employer] [address] [place] [address] [id number] KALYN MARTINEZ Self - [facility] [employer] [address] [place] [address] [id number] KALYN MARTINEZ Self - patient is the insured Medical (General) History Medical History History ICD Code LEVEL 1
--- OUTSIDE RECORDS SUMMARY | 2024-12-08 14:35 | XMS_ITS | Encounter Summary ---
Author Organization [facility] Address [address] [place] [address] Care Team Providers Care Relations Liaison Name Role Phone Unavailable Primary Care Provider Unavailabl e Encounter Details Date Type Department Care Team (Late st Contact Info) Description 01/06/2024 Clinisync Result Encounter NOMS External Department Unsolicited Willi Christiansen, DO [address] [facility] [place] [address] Social History Tobacco Use Types [...] EDT Narrative 01/06/2024 11:26 AM EDT The [facility] [address] [place] [address] Ultrasound Report Signed Patient: SHAYLA MARTINEZ MR#: [id number] : 2005 Acct:[id number] Age/Sex: 18 / F ADM Date: 01/06/24 Loc: NOMS Attending Dr: Willi Christiansen D.O. Ordering Physician: Willi Christiansen D.O. Date of Service: 01/06/24 Procedure(s): US OB growth Accession Number(s): [id number] cc: Willi Christiansen D.O.; Physician,Non-Staff [place]in [place] [address] Patient Name: SHAYLA MARTINEZ MRN: [facility]:[id number] date: 2005 Sex: F Assigned Patient Location: [facility] Current Patient Location: [facility] Accession/Order Number: [id number] Exam Date: 01/06/2024 10:06 Report Date: 01/06/2024 [...] Signed By: 01/06/24 1126 DD/ 1123 TD/TT: Director Of Development: Procedure Note Radiology, Radiologist, - 01/06/[address] [address] Ultrasound Report Signed Patient: FRAN MARTINEZR#: [id number] : 2005Acct:[id number] Age/Sex: 18 / FADM Date: 01/06/24 Loc: NOMS Attending Dr: Willi Christiansen D.O. Ordering Physician: Willi Christiansen D.O. Date of Service: 01/06/24 Procedure(s): US OB growth Accession Number(s): [id number] cc: Willi Christiansen D.O.; Physician,Non-Staff Arin The [place] [id number] Patient Name: SHAYLA MARTINEZ MRN: [id number] date: 2005 Sex: F Assigned Patient Location: [facility] Current Patient Location: [facility] Accession/Order Number: [id number] Exam Date: 01/06/2024 10:06 Report Date: 01/06/2024 [...] M.D. Signed By:01/06/24 1126 DD/ 1123 TD/TT: Director Of Development: us Willi Christiansen DO [facility] Final Result documented in this encounter Visit Diagnoses Not on filedocumented in this encounter
--- OUTSIDE RECORDS SUMMARY | 2024-12-08 14:35 | XMS_ITS | Encounter Summary ---
Author Organization [facility] Address [address] [place] [address] Care Team Providers Care Development Consultant Name Role Phone Unavailable Primary Care Provider Unavailabl e Encounter Details Date Type Department Care Team (Late st Contact Info) Description 06/24/2024 Abstract [facility] OB [address] [place] [address] Nelson Christiansen, DO [address] [place], [facility]11 Social History Tobacco Use Types Packs/Day [...]
--- OUTSIDE RECORDS SUMMARY | 2024-12-08 14:35 | XMS_ITS | Encounter Summary ---
Author Organization [facility] Address [address] [place] [address] Care Team Providers Care Digital Community Manager Name Role Phone Unavailable Primary Care Provider Unavailabl e Encounter Details Date Type Department Care Team (Late st Contact Info) Description 07/25/2023 Clinisync Result Encounter NOMS External Department Unsolicited Willi Christiansen, DO [address] [facility] [place] [address] Social History Tobacco Use Types [...] EST Narrative 07/25/2023 10:13 AM EST The [facility] [address] [place] [address] Ultrasound Report Signed Patient: SHAYLA MARTINEZ MR#: [id number] : 2005 Acct:[id number] Age/Sex: 17 / F ADM Date: 07/25/23 Loc: NOMS Attending Dr: Willi Christiansen D.O. Ordering Physician: Willi Christiansen D.O. Date of Service: 07/25/23 Procedure(s): US OB transvaginal Accession Number(s): [id number] cc: Willi Christiansen D.O.; Physician,Non-Staff Arin The [place] [id number] Patient Name: SHAYLA MARTINEZ MRN: [id number] date: 2005 Sex: F Assigned Patient Location: [facility] Current Patient Location: [facility] Accession/Order Number: [id number] Exam Date: 07/25/2023 09:33 Report Date: 07/25/2023 [...] Signed By: 07/25/23 1013 DD/ 1011 TD/TT: Health Promotion Specialist: Procedure Note Radiology, Radiologist, MD - 07/25/[address] [address] Ultrasound Report Signed Patient: BRODIE MARTINEZ#: [id number] : 2005Acct:[id number] Age/Sex: 17 / FADM Date: 07/25/23 Loc: NOMS Attending Dr: Willi Christiansen D.O. Ordering Physician: Willi Christiansen D.O. Date of Service: 07/25/23 Procedure(s): US OB transvaginal Accession Number(s): [id number] cc: Willi Christiansen D.O.; Physician,Non-Staff Arin [place] [address] Patient Name: SHAYLA MARTINEZ MRN: [id number] date: 2005 Sex: F Assigned Patient Location: [facility] Current Patient Location: [facility] Accession/Order Number: [id number] Exam Date: 07/25/2023 09:33 Report Date: 07/25/2023 [...] M.D. Signed By:07/25/23 1013 DD/ 1011 TD/TT: Health Promotion Specialist: us Willi Christiansen DO [facility] Final Result documented in this encounter Visit Diagnoses Not on filedocumented in this encounter
--- OUTSIDE RECORDS SUMMARY | 2024-12-08 14:35 | XMS_ITS | Encounter Summary ---
Author Organization [facility] Address [address] [place] [address] Care Team Providers Care Inlayer Name Role Phone Unavailable Primary Care Provider Unavailabl e Encounter Details Date Type Department Care Team (Late st Contact Info) Description 01/09/2024 Abstract [facility] OB [address] [place] [address] Mini Thorne LPN [address] [place] [id number] Social History Tobacco Use Types Packs/Day Years [...]
--- OUTSIDE RECORDS SUMMARY | 2024-12-08 14:35 | XMS_ITS | Clinical Summary ---
Author Organization [facility] Address [address] [place] [address] Care Team Providers Care District Adviser Name Role Phone Unavailable Primary Care Provider Unavailabl e Allergies No known active allergies Medications MV-Min-Fe Fum-FA-DHA ( 1 PO) Take 1 each by mouth Daily Active iron polysaccharides (ProFe) 391.3 (180 Fe) MG capsuleIndications: 30 weeks gestation of ([facility]),Third trimester ([facility]) Take 1 capsule (391.3 mg) by mouth Daily 30 capsule 6 11/04/19 25 025 docusate sodium (Colace) 100 MG capsuleIndications: Constipation, unspecified constipation type Take 1 capsule (100 mg) by mouth 2 (two) times a day as needed for constipation for up to 10 days 30 capsule 5 11/04/19 25 025 Encounters Date Type Department Care Team Description 12/03/2024 Clinisync Result Encounter [facility] External Department Unsolicited Willi Christiansen, DO 11/29/2024 Abstract [facility] [address] [place] [phone] Willi Christiansen, DO 11/17/2024 Clinisync Result Encounter [facility] External Department Unsolicited Willi Christiansen, DO 11/17/2024 Clinisync Result Encounter [facility] External Department Unsolicited Willi Christiansen, DO 11/11/2024 [address]phone [facility] [address] [place] [address] Beatriz Jolly MA 11/05/2024 Clinisync Result Encounter [facility] External Department Unsolicited Елена, Willi, DO 11/05/2024 Clinisync Result Encounter [facility] External Department Unsolicited Елена, Willi, DO 11/05/2024 Clinisync Result Encounter [facility] External Department Unsolicited Елена, Willi, DO 11/05/2024 Clinisync Result Encounter [facility] External Department Unsolicited Елена, Willi, DO 11/05/2024 Abstract [facility] [address] [place] [address] ЕленаWilli, DO 11/04/2024 Results Follow-Up [facility] [address] [place] [address] [place] [address] Mini Thorne LPN 11/03/2024 9:00 AM EDT Routine [facility] [address] [place] [address] Kristina Echavarria PA 30 weeks gestation of ([facility]); Third trimester ([facility]); SGA (small for gestational age) ([facility]); Antepartum anemia ([facility]); Constipation, unspecified constipation type 11/03/2024 Clinisync Result Encounter [facility] External Department Unsolicited ЕленаReney, DO 11/03/2024 Bamboo flowsheet [facility] [address] [place] [address] [place] [address] Kristina Echavarria PA 10/28/2024 Telephone [facility] [address] [place] [address] [place] [address] Tabitha Garduno MA 10/07/2024 Results Follow-Up [facility] [place] [address] Mini Thorne LPN 10/06/2024 Telephone [facility] [address] [place] [address] [place] [address] Mini Thorne LPN 10/04/2024 3:00 PM EDT Routine [facility] [address] [place] [address] Kristina Echavarria PA 26 weeks gestation of ([facility]); Second trimester ([facility]); Diabetes mellitus screening; UTI symptoms; SGA (small for gestational age) ([facility]) 10/04/2024 Bamboo flowsheet [facility] [address] [place] [address] [place] [phone] Kristina Echavarria PA from Last 3 Months [...] BPP W NON-STRESS 12/03/2024 4:05 PM EDT US OB GROWTH 11/17/2024 3:06 PM EDT US OB BPP W NON-STRESS 11/17/2024 2:58 PM EDT US OB PLACENTA 11/05/2024 2:54 PM EDT US OB CERVICAL LENGTH 11/05/2024 2:54 PM EDT US OB BPP W NON-STRESS 11/05/2024 2:54 PM EDT TBH URINE MICROSCOPIC ONLY Routine 11/05/2024 12:15 PM EDT TBH UA (CLEAN/CATCH) BUG TRIMMER/MICRO IF IND. Routine 11/05/2024 12:15 PM EDT US OB GROWTH 11/03/2024 5:05 PM EDT TRANSFERRIN Routine 11/03/2024 4:53 PM EDT MLR HEMOGLOBIN A1C Routine 11/03/2024 4: 53 PM EDT CCF FERRITIN Routine 11/03/2024 4:53 PM EDT ALL CBC WITH AUTO DIFF Routine 11/03/2024 4:53 PM EDT POCT URINALYSIS DIPSTICK Routine 11/03/2024 9:32 AM EDT 30 weeks gestation of ([facility]) Third trimester ([facility]) URINARY TRACT INFECTION (HTRX) Routine 10/04/2024 4:19 PM EDT POCT URINALYSIS DIPSTICK Routine 10/04/2024 3:29 PM EDT 26 weeks gestation of ([facility]) Second trimester ([facility]) from Last 3 Months Results * US OB BPP W NON-STRESS (12/03/2024 4:05 PM EDT) Only the most recent of3 resultswithin the time period is included. Anatomical Region Laterality Modality Other 12/03/2024 4:05 PM EDT Narrative 12/03/2024 4:07 PM EDT The [address] [address] Ultrasound Report Signed Patient: SHAYLA MARTINEZ MR#: [id number] : 2005 Acct:[id number] Age/Sex: 18 / F ADM Date: 12/03/24 Loc: [facility] Attending Dr: Willi Christiansen D.O. Ordering Physician: Willi Christiansen D.O. Date of Service: 12/03/24 Procedure(s): US OB BPP w non-stress Accession Number(s): [id number] cc: Willi Christiansen D.O.; Physician,Non-Staff Arin The [place] [address] Patient Name: SHAYLA MARTINEZ MRN: [id number] date: 2005 Sex: F [place]igned [place] [facility] [place] Patient Location: Accession/Order Number: [id number] Exam Date: 12/03/2024 16:04 Report Date: 12/03/2024 [...] Ladd M.D. 12/03/2024 4:05 PM Dictation Location: [place] [address] Electronically authenticated by: [id number] Y Date: 12/03/2024 16:05 Dictated By: Froy Ladd D.O. Signed By: 12/03/24 1607 DD/ 1605 TD/TT: Biological Science Technician Fish: Procedure Note Radiology, Radiologist, MD - 12/03/2024 [place] [address] Ultrasound Report Signed Patient: BRODIE MARTINEZ#: [id number] : 2005Acct:[id number] Age/Sex: 18 / FADM Date: 12/03/24 [place] [facility] [place]: Willi Christiansen D.O. Ordering Physician: Willi Christiansen D.O. Date of Service: 12/03/24 Procedure(s): US OB BPP w non-stress Accession Number(s): [id number] cc: Willi Christiansen D.O.; Physician,Non-Staff Arin [address] [address] Patient Name: SHAYLA MARTINEZ MRN: [id number] date: 2005 Sex: F Assigned Patient [place] [facility] [place] Patient Location: Accession/Order Number: [id number] Exam Date: 12/03/2024 16:04 Report Date: 12/03/2024 [...] Ladd M.D. 12/03/2024 4:05 PM Dictation Location: [place] [address] Electronically authenticated by: [id number] Y Date: 6:05 Dictated By: Froy Ladd D.O. Signed By:12/03/24 1607 DD/ 1605 TD/TT: Biological Science Technician Fish: us Willi Christiansen DO [facility]IN[facility] IMAGING Final Result * US OB GROWTH (11/17/2024 3:06 PM EDT) Only the most recent of2 resultswithin the time period is included. Anatomical Region Laterality Modality Other 11/17/2024 3:06 PM EDT Narrative 11/17/2024 3:08 PM EDT [address] [address] Ultrasound Report Signed Patient: SHAYLA MARTINEZ MR#: [id number] : 2005 Acct:[id number] Age/Sex: 18 / F ADM Date: 11/17/24 Loc: US Attending Dr: Willi Christiansen D.O. Ordering Physician: Willi Christiansen D.O. Date of Service: 11/17/24 Procedure(s): US OB growth Accession Number(s): [id number] cc: Willi Christiansen D.O.; Physician,Non-Staff Arin The [address] [address] Patient Name: SHAYLA MARTINEZ MRN: [id number] date: 2005 Sex: F Assigned Patient Location: [facility] Current Patient Location: Accession/Order Number: [id number] Exam Date: 11/17/2024 15:03 Report Date: 11/17/2024 [...] Ladd M.D. 11/17/2024 3:06 PM [facility] by: [id number] Y Date: 11/17/2024 15:06 Dictated By: Froy Ladd D.O. Signed By: 11/17/24 1508 DD/ 1506 TD/TT: Biological Science Technician Fish: Procedure Note Radiology, Radiologist, - 11/17/[address] [address] Ultrasound Report Signed Patient: BETHANIE MARTINEZR#: [id number] : 2005Acct:[id number] Age/Sex: 18 / FADM Date: 11/17/24 Loc: US Attending Dr: Willi Christiansen D.O. Ordering Physician: Willi Christiansen D.O. Date of Service: 11/17/24 Procedure(s): US OB growth Accession Number(s): [id number] cc: Willi Christiansen D.O.; Physician,Non-Staff Arin The [place] [address] Patient Name: SHAYLA MARTINEZ MRN: [facility]:[id number] date: 2005 Sex: F Assigned Patient Location: [facility] Current Patient Location: Accession/Order Number: [id number] Exam Date: 11/17/2024 15:03 Report Date: 11/17/2024 [...] Ladd M.D. 11/17/2024 3:06 PM Dictation Location: [place] [address] Electronically authenticated by: [id number] Y Date: 5:06 Dictated By: Froy Ladd D.O. Signed By:11/17/24 1508 DD/ 1506 TD/TT: Biological Science Technician Fish: us Willi Christiansen DO CLINISYNC IMAGING Final Result * US OB PLACENTA (11/05/2024 2:54 PM EDT) Anatomical Region Laterality Modality Other 11/05/2024 2:54 PM EDT Narrative 11/05/2024 2:57 PM EDT [address] [address] Ultrasound Report Signed Patient: SHAYLA MARTINEZ MR#: [id number] : 2005 Acct:[id number] Age/Sex: 18 / F ADM Date: Loc: [facility] [address]: Willi Christiansen D.O. Ordering Physician: Willi Christiansen D.O. Date of Service: 11/05/24 Procedure(s): US OB placenta Accession Number(s): [id number] cc: Willi Christiansen D.O.; Physician,Non-Staff M.Jorden [address] [address] Patient Name: SHAYLA MARTIENZ MRN: [id number] date: 2005 Sex: F Assigned Patient Location: [facility] Current Patient Location: [facility] Accession/Order Number: [id number] Exam Date: 11/05/2024 14:48 Report Date: 11/05/2024 [...] Ashley M.D. 11/05/2024 2:54 PM Dictation Location: [place] [address] Electronically authenticated by: [id number] Y Date: 11/05/2024 14:54 Dictated By: Thomas Ashley M.D. Signed By: 11/05/24 1457 DD/ 1454 TD/TT: Biological Science Technician Fish: Procedure Note Radiology, Radiologist, MD - 11/05/2024 [place] [address] Ultrasound Report Signed Patient: BRODIE MARTINEZ#: [id number] : 2005Acct:[id number] Age/Sex: M Date: Loc: [facility] 253-[address]: Willi Christiansen D.O. Ordering Physician: Willi Christiansen D.O. Date of Service: 11/05/24 Procedure(s): US OB placenta Accession Number(s): [id number] cc: Willi Christiansen D.O.; Physician,Non-Staff Arin The [place] [id number] Patient Name: SHAYLA MARTINEZ MRN: [id number] date: 2005 Sex: F Assigned Patient Location: [facility] Current Patient Location: [facility] Accession/Order Number: [id number] Exam Date: 11/05/2024 14:48 Report Date: 11/05/2024 [...] Ashley M.D. 11/05/2024 2:54 PM Dictation Location: [place] [address] Electronically authenticated by: [id number] Y Date: 4:54 Dictated By: Thomas Ashley M.D. Signed By:11/05/24 1457 DD/ 1454 TD/TT: Biological Science Technician Fish: us Willi Christiansen DO CLIN[facility] IMAGING Final Result * US OB CERVICAL LENGTH (11/05/2024 2:54 PM EDT) Anatomical Region Laterality Modality Other 11/05/2024 2:54 PM EDT Narrative 11/05/2024 2:57 PM EDT [place] [id number] Ultrasound Report Signed Patient: SHAYLA MARTINEZ MR#: [id number] : 2005 Acct:[id number] Age/Sex: 18 / F ADM Date: Loc: [facility] 253-[address]: Willi Christiansen D.O. Ordering Physician: Willi Christiansen D.O. Date of Service: 11/05/24 Procedure(s): US OB cervical length Accession Number(s): [id number] cc: Willi Christiansen D.O.; Physician,Non-Staff Arin [address] [address] Patient Name: SHAYLA MARTINEZ MRN: [id number] date: 2005 Sex: F Assigned Patient Location: [facility] Current Patient Location: [facility] Accession/Order Number: [id number] Exam Date: 11/05/2024 14:48 Report Date: 11/05/2024 [...] Ashley M.D. 11/05/2024 2:54 PM Dictation Location: [place] [address] Electronically authenticated by: [id number] Y Date: 11/05/2024 14:54 Dictated By: Thomas Ashley M.D. Signed By: 11/05/24 1457 DD/ 1454 TD/TT: Biological Science Technician Fish: Procedure Note Radiology, Radiologist, MD - 11/05/2024 [place] [address] Ultrasound Report Signed Patient: BRODIE MARTINEZ#: [id number] : 2005Acct:[id number] Age/Sex: 18 / FADM Date: Loc: [facility] 253-[address]: Willi Christiansen D.O. Ordering Physician: Willi Christiansen D.O. Date of Service: 11/05/24 Procedure(s): US OB cervical length Accession Number(s): [id number] cc: Willi Christiansen D.O.; Physician,Non-Staff Arin The [address] [address] Patient Name: SHAYLA MARTINEZ MRN: [id number] date: 2005 Sex: F Assigned Patient Location: [facility] Current Patient Location: [facility] Accession/Order Number: [id number] Exam Date: 11/05/2024 14:48 Report Date: 11/05/2024 [...] Ashley M.D. 11/05/2024 2:54 PM Dictation Location: [place] [address] Electronically authenticated by: [id number] Y Date: 4:54 Dictated By: Thomas Ashley M.D. Signed By:11/05/24 1457 DD/ 1454 TD/TT: Biological Science Technician Fish: Willi Елена DO [facility] IMAGING Final Result [...] CLINISYNC TB * (ABNORMAL) TBH UA (CLEAN/CATCH) BUG TRIMMER/MICRO IF IND. (11/05/2024 12:15 PM EDT) COLOR [...] - 11/05/2024 12:39 PM EDT us Willi Елена DO CLINISYNC Final Result [facility] * (ABNORMAL) TRANSFERRIN (11/03/2024 4:53 PM EDT) TRANSFERRIN 470(A) 192 - 364 mg/dL TB Comment: Performed at: - [facility] [id number] Human Resources Executive Assistant: Ez Overton PhD, Phone: [phone] 11/03/2024 4:53 PM EDT 11/03/2024 4:56 PM EDT Narrative CLINISYNC - 11/05/2024 5:07 AM EDT Kristina RHODES LAB BLOOD ORDERABLES Final Resul t [facility] * MLR HEMOGLOBIN A1C (11/03/2024 4:53 PM EDT) GLYCOHEMOGLOBIN A1C 5.6 4.5 - 6.2 % TB Comment: ADA RECOMMENDED LIMIT 4.0 - 6.0 ADA THERAPEUTIC TARGET < 7.0 ACTION SUGGESTED > 7.0 ESTIMATED AVERAGE GLUCOSE 114 mg/dL TBH 11/03/2024 4:53 PM EDT 11/03/2024 4:56 PM EDT Narrative CLINISYNC - 11/03/2024 6:28 PM EDT Kristina RHODES CLINISYNC Final Result CLINISYNC TBH * (ABNORMAL) [facility] FERRITIN (11/03/2024 4:53 PM EDT) Pathologist [facility] FERRITIN 5.0(L) 8.0 - 252.0 ng/mL TBH 11/03/2024 4:53 PM EDT 11/03/2024 4:56 PM EDT Narrative CLINISYNC - 11/03/2024 6:28 PM EDT Kristina RHODES CLINISYNC Final Result CLINISYNC TBH * (ABNORMAL) ALL CBC WITH AUTO DIFF (11/03/2024 4:53 PM EDT) Pathologist [facility] TB WBC 10.5 4.0 - 11.0 10 [...] PM EDT Kristina RHODES CLINISYNC Final Result [facility] * (ABNORMAL) POCT urinalysis dipstick manually resulted [...] - Positive Urine 11/03/2024 9:32 AM EDT us Kristina RHODES POINT OF CARE TEST ENTER/EDIT OR DERABLES Final Result * (ABNORMAL) URINARY TRACT INFECTION (HTRX) (10/04/2024 4:19 PM EDT) [facility] ACINETOBACTER BAUMANII 0.000 19.961 - 24.689 ppm 10/06/2024 8:11 AM EDT [facility] ACINETOBACTER BAUMANII Not Detected 19.961 - 24.689 ppm 10/06/2024 8:11 AM EDT [facility] CITROBACTER FREUNDII 0.000 23.000 - 31.881 ppm 10/06/2024 8:11 AM EDT [facility] CITROBACTER FREUNDII Not Detected 23.000 - 31.881 ppm 10/06/2024 8:11 AM EDT [facility] ENTEROBACTER AEROGENES, CLOACAE 0.000 23.000 - 31.535 ppm 10/06/2024 8:11 AM EDT [facility] ENTEROBACTER AEROGENES, CLOACAE Not Detected 23.000 - 31.535 ppm 10/06/2024 8:11 AM EDT [facility] ENTEROCOCCUS FAECALIS, FAECIUM 0.000 26.000 - 31.575 ppm 10/06/2024 8:11 AM EDT [facility] ENTEROCOCCUS FAECALIS, FAECIUM Not Detected 26.000 - 31.575 ppm 10/06/2024 8:11 AM EDT [facility] ESCHERICHIA COLI 0.000 23.000 - 28.500 ppm 10/06/2024 8:11 AM EDT [facility] ESCHERICHIA COLI Not Detected 23.000 - 28.500 ppm 10/06/2024 8:11 AM EDT [facility] KLEBSIELLA PNEUMONIAE, OXYTOCA 0.000 23.000 - 30.500 ppm 10/06/2024 8:11 AM EDT [facility] KLEBSIELLA PNEUMONIAE, OXYTOCA Not Detected 23.000 - 30.500 ppm 10/06/2024 8:11 AM EDT [facility] MORGANELLA MORGANII 0.000 19.961 - 24.689 ppm 10/06/2024 8:11 AM EDT [facility] MORGANELLA MORGANII Not Detected 19.961 - 24.689 ppm 10/06/2024 8:11 AM EDT [facility] PROTEUS MIRABILIS, VULGARIS 0.000 23.000 - 28.500 ppm 10/06/2024 8:11 AM EDT [facility] PROTEUS MIRABILIS, VULGARIS Not Detected 23.000 - 28.500 ppm 10/06/2024 8:11 AM EDT [facility] PSEUDOMONAS AERUGINOSA 0.000 23.000 - 28.500 ppm 10/06/2024 8:11 AM EDT [facility] PSEUDOMONAS AERUGINOSA Not Detected 23.000 - 28.500 ppm 10/06/2024 8:11 AM EDT [facility] STAPHYLOCOCCUS AUREUS 0.000 26.000 - 30.902 ppm 10/06/2024 8:11 AM EDT [facility] STAPHYLOCOCCUS AUREUS Not Detected 26.000 - 30.902 ppm 10/06/2024 8:11 AM EDT [facility] STREPTOCOCCUS AGALACTIAE (GROUP B STREP) 20.802(A) 26.000 - 32.222 ppm 10/06/2024 8:11 AM EDT [facility] STREPTOCOCCUS AGALACTIAE (GROUP B STREP) Detected(A) 26.000 - 32.222 ppm 10/06/2024 8:11 AM EDT [facility] REMY ALBICANS, PARAPSILOSIS, TROPICALIS 0.000 19.961 - 30.770 ppm 10/06/2024 8:11 AM EDT [facility] REMY ALBICANS, PARAPSILOSIS, TROPICALIS Not Detected 19.961 - 30.770 ppm 10/06/2024 8:11 AM EDT [facility] REMY GLABRATA 0.000 23.000 - 32.138 ppm 10/06/2024 8:11 AM EDT [facility] REMY GLABRATA Not Detected 23.000 - 32.138 ppm 10/06/2024 8:11 AM EDT [facility] REMY KRUSEI 0.000 23.000 - 32.271 ppm 10/06/2024 8:11 AM EDT [facility] REMY KRUSEI Not Detected 23.000 - 32.271 ppm 10/06/2024 8:11 AM EDT [facility] SERRATIA MARCESCENS 0.000 23.000 - 31.204 ppm 10/06/2024 8:11 AM EDT [facility] SERRATIA MARCESCENS Not Detected 23.000 - 31.204 ppm 10/06/2024 8:11 AM EDT [facility] STREPTOCOCCUS PYOGENES (GROUP A STREP) 0.000 19.961 - 24.689 ppm 10/06/2024 8:11 AM EDT [facility] STREPTOCOCCUS PYOGENES (GROUP A STREP) Not Detected 19.961 - 24.689 ppm 10/06/2024 8:11 AM EDT [facility] STAPHYLOCOCCUS EPIDERMIDIS, HAEMOLYTICUS, LUGDUNENSIS, SAPROPHYTICUS (URINA 0.000 19.961 - 24.689 ppm 10/06/2024 8:11 AM EDT [facility] STAPHYLOCOCCUS EPIDERMIDIS, HAEMOLYTICUS, LUGDUNENSIS, SAPROPHYTICUS (URINA Not Detected 19.961 - 24.689 ppm 10/06/2024 8:11 AM EDT [facility] STAPHYLOCOCCUS EPIDERMIDIS, HAEMOLYTICUS, LUGDUNENSIS, SAPROPHYTICUS (URINA 0.000 19.961 - 24.689 ppm 10/06/2024 8:11 AM EDT [facility] STAPHYLOCOCCUS EPIDERMIDIS, HAEMOLYTICUS, LUGDUNENSIS, SAPROPHYTICUS (URINA Not Detected 19.961 - 24.689 ppm 10/06/2024 8:11 AM EDT [facility] ERMB, C; MEFA 21.295(A) 23.000 - 27.611 ppm 10/06/2024 8:11 AM EDT [facility] ERMB, C; MEFA Detected(A) 23.000 - 27.611 ppm 10/06/2024 8:11 AM EDT [facility] Urine 10/04/2024 4:19 PM EDT 10/06/2024 2:25 AM EDT us Willi Christiansen DO LAB BLOOD ORDERABLES Final Resul t [facility] [place] [address] from Last 3 Months Insurance MEDICAID [place]
--- OUTSIDE RECORDS SUMMARY | 2024-12-08 14:35 | XMS_ITS | Encounter Summary ---
Author Organization [facility] Address [address] [place] [address] Care Team Providers Care Gun Perforator Loader Name Role Phone Unavailable Primary Care Provider Unavailabl e Encounter Details Date Type Department Care Team (Late st Contact Info) Description 01/03/2024 Clinisync Result Encounter [facility] External Department Unsolicited Willi Christiansen, DO [address] [facility] [place] [place] [id number] Social History Tobacco Use Types Packs/Day Years [...] EDT Narrative 01/03/2024 9:04 AM EDT The [facility] [address] [place] [address] Ultrasound Report Signed Patient: SHAYLA MARTINEZ MR#: [id number] : 2005 Acct:[id number] Age/Sex: 18 / F ADM Date: Loc: [facility] 251- Attending Dr: Willi Christiansen D.O. Ordering Physician: Willi Christiansen D.O. Date of Service: 01/03/24 Procedure(s): US OB BPP w non-stress Accession Number(s): [id number] cc: Willi Christiansen D.O.; Physician,Non-Staff Arin The [place] [id number] Patient Name: SHAYLA MARTINEZ MRN: [id number] date: 2005 Sex: F Assigned Patient Location: [facility] Current Patient Location: [facility] Accession/Order Number: [id number] Exam Date: 01/03/2024 07:11 Report Date: 01/03/2024 [...] M.D. Signed By: 01/03/24903 DD/ 09 TD/TT: Phlebotomy Tech: Procedure Note Radiology, Radiologist, MD - 01/03/2024 [place] [address] Ultrasound Report Signed Patient: BRODIE MARTINEZ#: [id number] : 2005Acct:[id number] Age/Sex: 18 / FADM Date: Loc: [facility] 251- Attending Dr: Willi Christiansen D.O. Ordering Physician: Willi Christiansen D.O. Date of Service: 01/03/24 Procedure(s): US OB BPP w non-stress Accession Number(s): [id number] cc: Willi Christiansen D.O.; Physician,Non-Staff Arin [place] [address] Patient Name: SHAYLA MARTINEZ MRN: [facility]:[id number] date: 2005 Sex: F Assigned Patient Location: [facility] Current Patient Location: [facility] Accession/Order Number: [id number] Exam Date: 01/03/2024 07:11 Report Date: 01/03/2024 [...] Hdez M.D. Signed By:01/03/2404 DD/ 0 TD/TT: Phlebotomy Tech: us Willi Christiansen DO [facility] IMAGING Final Result documented in this encounter Visit Diagnoses Not on filedocumented in this encounter
--- OUTSIDE RECORDS SUMMARY | 2024-12-08 14:35 | XMS_ITS | Encounter Summary ---
Author Organization [facility] Address [address] [place] [address] Care Team Providers Care Political Research Scientist Name Role Phone Unavailable Primary Care Provider Unavailabl e Encounter Details Date Type Department Care Team (Late st Contact Info) Description 10/21/2023 Clinisync Result Encounter [facility] External Department Unsolicited Willi Christiansen, DO [address] [facility] [place] [address] Social History Tobacco Use Types [...] Narrative 10/21/2023 8:30 AM EDT The [facility] [address] [place] [address] Ultrasound Report Signed Patient: SHAYAL MARTINEZ MR#: [id number] : 2005 Acct:[id number] Age/Sex: 17 / F ADM Date: 10/20/23 Loc: US Attending Dr: Willi Christiansen D.O. Ordering Physician: Willi Christiansen D.O. Date of Service: 10/20/23 Procedure(s): US OB anatomy Accession Number(s): [id number] cc: Willi Christiansen D.O.; Physician,Non-Staff [place] [id number] Patient Name: SHAYLA MARTINEZ MRN: [id number] date: 2005 Sex: F Assigned Patient Location: US Current Patient Location: Accession/Order Number: [id number] Exam Date: 10/20/2023 15:00 Report Date: 10/21/2023 [...] M.D. Signed By: 10/21/23829 DD/ 6 TD/TT: Centerless Grinder: Procedure Note Radiology, Radiologist, MD - 10/21/2023 [place] [address] Ultrasound Report Signed Patient: BRODIE MARTINEZ#: [id number] : 2005Acct:[id number] Age/Sex: 17 / FADM Date: 10/20/23 Loc: US Attending Dr: Willi Christiansen D.O. Ordering Physician: Willi Christiansen D.O. Date of Service: 10/20/23 Procedure(s): US OB anatomy Accession Number(s): [id number] cc: Willi Christiansen D.O.; Physician,Non-Staff Arin The [place] [id number] Patient Name: SHAYLA MARTINEZ MRN: [facility]:[id number] date: 2005 Sex: F Assigned Patient Location: US Current Patient Location: Accession/Order Number: [id number] Exam Date: 10/20/2023 15:00 Report Date: 10/21/2023 [...] Solano M.D. Signed By:10/21/2330 DD/ 6 TD/TT: Centerless Grinder: [facility] Final Result documented in this encounter Visit Diagnoses Not on filedocumented in this encounter
--- OUTSIDE RECORDS SUMMARY | 2024-12-08 14:35 | XMS_ITS | Encounter Summary ---
Author Organization [facility] Address [address] [place] [address] Care Team Providers Care Sourcing Analyst Name Role Phone Unavailable Primary Care Provider Unavailabl e Encounter Details Date Type Department Care Team (Late st Contact Info) Description 01/26/2024 Abstract [facility] OB [address] [place] [address] Nelson Christiansen, DO [address] [place], [facility]11 Social History Tobacco Use Types Packs/Day [...]
--- OUTSIDE RECORDS SUMMARY | 2024-12-08 14:35 | XMS_ITS | Encounter Summary ---
Author Organization [facility] Address [address] [place] [address] Care Team Providers Care Show Card Letterer Name Role Phone Unavailable Primary Care Provider Unavailabl e Encounter Details Date Type Department Care Team (Late st Contact Info) Description 02/04/2024 Abstract [facility] OB [address] [place] [address] Nelson Christiansen, DO [address] [facility] [address] [place], [facility]11 Social History Tobacco Use Types Packs/Day Years [...]
--- OUTSIDE RECORDS SUMMARY | 2024-12-08 14:35 | XMS_ITS | Encounter Summary ---
Author Organization [facility] Address [address] [place] [address] Care Team Providers Care Licensed Acupuncturist Name Role Phone Unavailable Primary Care Provider Unavailabl e Encounter Details Date Type Department Care Team (Late st Contact Info) Description 01/03/2024 Clinisync Result Encounter [facility] External Department Unsolicited Willi Christiansen, DO [address] [facility] [address] [place], [place] [phone] Social History Tobacco Use Types Packs/Day Years [...] EDT Narrative 01/03/2024 8:40 AM EDT The [facility] [address] [place] [address] Ultrasound Report Signed Patient: SHAYLA MARTINEZ MR#: [id number] : 2005 Acct:[id number] Age/Sex: 18 / F ADM Date: Loc: [facility] Attending Dr: Willi Christiansen D.O. Ordering Physician: Willi Christiansen D.O. Date of Service: 01/03/24 Procedure(s): US OB cervical length Accession Number(s): [id number] cc: Willi Christiansen D.O.; Physician,Non-Staff Arin The [address] [address] Patient Name: SHAYLA MARTINEZ MRN: [facility]:[id number] date: 2005 Sex: F Assigned Patient Location: [facility] Current Patient Location: [facility] Accession/Order Number: [id number] Exam Date: 01/03/2024 07:11 Report Date: 01/03/2024 [...] Signed By: 01/03/24 0840 DD/ 0837 TD/TT: [employer] Brakes: Procedure Note Radiology, Radiologist, MD - 01/03/2024 [place] [address] Ultrasound Report Signed Patient: BRODIE MARTINEZ#: [id number] : 2005Acct:[id number] Age/Sex: 18 / FADM Date: Loc: [facility] [address]: Willi Christiansen D.O. Ordering Physician: Willi Christiansen D.O. Date of Service: 01/03/24 Procedure(s): US OB cervical length Accession Number(s): [id number] cc: Willi Christiansen D.O.; Physician,Non-Staff [place] [id number] Patient Name: SHAYLA MARTINEZ MRN: [facility]:[id number] date: 2005 Sex: F Assigned Patient Location: [facility] Current Patient Location: [facility] Accession/Order Number: [id number] Exam Date: 01/03/2024 07:11 Report Date: 01/03/2024 [...] M.D. Signed By:01/03/24 0840 DD/ 0837 TD/TT: [employer] Brakes: Willi Christiansen DO [facility] Final Result documented in this encounter Visit Diagnoses Not on filedocumented in this encounter
--- OUTSIDE RECORDS SUMMARY | 2024-12-08 14:35 | XMS_ITS | Encounter Summary ---
Author Organization [facility] Address [address] [place] [address] Care Team Providers Care Production Line Solderer Name Role Phone Unavailable Primary Care Provider Unavailabl e Encounter Details Date Type Department Care Team (Late st Contact Info) Description 06/28/2024 Abstract [facility] OB [address] [place] [address] Nelson Christiansen, DO [address] [place], [facility]11 Social History Tobacco Use Types Packs/Day [...]
--- OUTSIDE RECORDS SUMMARY | 2024-12-08 14:35 | XMS_ITS | Encounter Summary ---
Author Organization [facility] Address [address] [place] [address] Care Team Providers Care Hunting Sales Leader Name Role Phone Unavailable Primary Care Provider Unavailabl e Encounter Details Date Type Department Care Team (Late st Contact Info) Description 11/29/2024 Abstract [facility] OB [address] [place] [address] Nelson Christiansen, DO [address] [place] Rueda, [facility]11 Social History Tobacco Use Types Packs/Day [...]
--- OUTSIDE RECORDS SUMMARY | 2024-12-08 14:35 | XMS_ITS | Encounter Summary ---
Author Organization [facility] Address [address] [place] [address] Care Team Providers Care Lip Cutter Name Role Phone Unavailable Primary Care Provider Unavailabl e Encounter Details Date Type Department Care Team (Late st Contact Info) Description 02/12/2024 Abstract [facility] OB [address] [facility] [place] [address] Nelson Christiansen, DO [address] [place], [facility]11 Social History Tobacco Use Types [...]
--- OUTSIDE RECORDS SUMMARY | 2024-12-08 14:35 | XMS_ITS | Encounter Summary ---
Author Organization [facility] Address [address] [place] [address] Care Team Providers Care Treasury Manager Name Role Phone Unavailable Primary Care Provider Unavailabl e Encounter Details Date Type Department Care Team (Late st Contact Info) Description 01/03/2024 Clinisync Result Encounter [facility] External Department Unsolicited Willi Christiansen, DO [address] [facility] [place] [address] Social History Tobacco Use Types [...] EDT Narrative 01/03/2024 11:25 AM EDT The [facility] [address] [place] [address] XRay Report Signed Patient: SHAYLA MARTINEZ MR#: [id number] : 2005 Acct:[id number] Age/Sex: 18 / F ADM Date: Loc: [facility] Attending Dr: Willi Christiansen D.O. Ordering Physician: Willi Christiansen D.O. Date of Service: 01/03/24 Procedure(s): XR chest 2V Accession Number(s): [id number] cc: Willi Christiansen D.O.; Physician,Non-Staff Arin The [place] [id number] Patient Name: SHAYLA MARTINEZ MRN: [facility]:[id number] date: 2005 Sex: F Assigned Patient Location: [facility] Current Patient Location: [facility] Accession/Order Number: [id number] Exam Date: 01/03/2024 10:37 Report Date: 01/03/2024 [...] Signed By: 01/03/24 1125 DD/ 1122 TD/TT: Shoes Hand Sewer: Procedure Note Radiology, Radiologist, MD - 01/03/2024 [place] [address] XRay Report Signed Patient: BRODIE MARTINEZ#: [id number] : 2005Acct:[id number] Age/Sex: 18 / FADM Date: Loc: [facility] Attending Dr: Willi Christiansen D.O. Ordering Physician: Willi Christiansen D.O. Date of Service: 01/03/24 Procedure(s): XR chest 2V Accession Number(s): [id number] cc: Willi Christiansen D.O.; Physician,Non-Staff Arin [place] [id number] Patient Name: SHAYLA MARTINEZ MRN: [facility]:[id number] date: 2005 Sex: F Assigned Patient Location: [facility] Current Patient Location: [facility] Accession/Order Number: [id number] Exam Date: 01/03/2024 10:37 Report Date: 01/03/2024 [...] M.D. Signed By:01/03/24 1125 DD/ 1122 TD/TT: Shoes Hand Sewer: us Willi Christiansen DO [facility] Final Result documented in this encounter Visit Diagnoses Not on filedocumented in this encounter
--- OUTSIDE RECORDS SUMMARY | 2024-12-08 14:35 | XMS_ITS | Encounter Summary ---
Author Organization [facility] Address [address] [place] [address] Care Team Providers Care Yarn Skeins Examiner Name Role Phone Unavailable Primary Care Provider Unavailabl e Encounter Details Date Type Department Care Team (Late st Contact Info) Description 01/03/2024 Clinisync Result Encounter [facility] External Department Unsolicited Willi Christiansen, DO [address] [facility] [place] [address] Social History Tobacco Use Types [...] EDT Narrative 01/03/2024 8:40 AM EDT The [facility] [address] [place] [address] Ultrasound Report Signed Patient: SHAYLA MARTINEZ MR#: [id number] : 2005 Acct:[id number] Age/Sex: 18 / F ADM Date: Loc: [facility] Attending Dr: Willi Christiansen D.O. Ordering Physician: Willi Christiansen D.O. Date of Service: 01/03/24 Procedure(s): US OB placenta Accession Number(s): [id number] cc: Willi Christiansen D.O.; Physician,Non-Staff Arin The [address] [address] Patient Name: SHAYLA MARTINEZ MRN: [facility]:[id number] date: 2005 Sex: F Assigned Patient Location: [facility] Current Patient Location: [facility] Accession/Order Number: [id number] Exam Date: 01/03/2024 07:11 Report Date: 01/03/2024 [...] Signed By: 01/03/24 0840 DD/ 0837 TD/TT: Biological Sciences Professor: Procedure Note Radiology, Radiologist, MD - 01/03/2024 [place] [address] Ultrasound Report Signed Patient: BRODIE MARTINEZ#: [id number] : 2005Acct:[id number] Age/Sex: 18 / FADM Date: Loc: [facility] Attending Dr: Willi Christiansen D.O. Ordering Physician: Willi Christiansen D.O. Date of Service: 01/03/24 Procedure(s): US OB placenta Accession Number(s): [id number] cc: Willi Christiansen D.O.; Physician,Non-Staff Arin [address] [address] Patient Name: SHAYLA MARTINEZ MRN: [facility]:[id number] date: 2005 Sex: F Assigned Patient Location: [facility] Current Patient Location: [facility] Accession/Order Number: [id number] Exam Date: 01/03/2024 07:11 Report Date: 01/03/2024 [...] M.D. Signed By:01/03/24 0840 DD/ 0837 TD/TT: Biological Sciences Professor: us Willi Christiansen DO [facility] Final Result documented in this encounter Visit Diagnoses Not on filedocumented in this encounter
--- OUTSIDE RECORDS SUMMARY | 2024-12-08 14:35 | XMS_ITS | Encounter Summary ---
Author Organization [facility] Address [address] [place] [address] Care Team Providers Care Accountant Property Name Role Phone Unavailable Primary Care Provider Unavailabl e Encounter Details Date Type Department Care Team (Late st Contact Info) Description 11/05/2023 Clinisync Result Encounter [facility] External Department Unsolicited Willi Christiansen, DO [address] [facility] [address] [place], [place] [address] Social History Tobacco Use Types Packs/Day Years [...] PM EDT Narrative 11/05/2023 1:23 PM EDT [address] [address] Ultrasound Report Signed Patient: SHAYLA MARTINEZ MR#: [id number] : 2005 Acct:[id number] Age/Sex: 17 / F ADM Date: 11/05/23 Loc: [facility] Attending Dr: Willi Christiansen D.O. Ordering Physician: Willi Christiansen D.O. Date of Service: 11/05/23 Procedure(s): US OB cervical length Accession Number(s): [id number] cc: Willi Christiansen D.O.; Physician,Non-Staff Arin [address] [address] Patient Name: SHAYLA MARTINEZ MRN: [facility]:[id number] date: 2005 Sex: F Assigned Patient Location: [facility] Current Patient Location: [facility] Accession/Order Number: [id number] Exam Date: 11/05/2023 11:05 Report Date: 11/05/2023 [...] Signed By: 11/05/23 1323 DD/ 1320 TD/TT: Pullman Car Clerk: Procedure Note Radiology, Radiologist, MD - 11/05/2023 The [place] [id number] Ultrasound Report Signed Patient: BRODIE MARTINEZ#: [id number] : 2005Acct:[id number] Age/Sex: 17 / FADM Date: 11/05/23 Loc: [facility] Attending Dr: Willi Christiansen D.O. Ordering Physician: Willi Christiansen D.O. Date of Service: 11/05/23 Procedure(s): US OB cervical length Accession Number(s): [id number] cc: Willi Christiansen D.O.; Physician,Non-Staff Arin The [place] [id number] Patient Name: SHAYLA MARTINEZ MRN: [facility]:[id number] date: 2005 Sex: F Assigned Patient Location: [facility] Current Patient Location: [facility] Accession/Order Number: [id number] Exam Date: 11/05/2023 11:05 Report Date: 11/05/2023 [...] Dictated By: Sadiq Villa M.D. Signed By:11/05/23 1327 DD/ 1320 TD/TT: Pullman Car Clerk: us Willi Christiansen DO [facility] Final Result documented in this encounter Visit Diagnoses Not on filedocumented in this encounter
--- OUTSIDE RECORDS SUMMARY | 2024-12-08 14:35 | XMS_ITS | Encounter Summary ---
Author Organization [facility] Address [address] [place] [address] Care Team Providers Care Chaser Helper Name Role Phone Unavailable Primary Care Provider Unavailabl e Encounter Details Date Type Department Care Team (Late st Contact Info) Description 01/23/2024 Abstract [facility] OB [address] [facility] [address] [place] [address] Nelson Christiansen, DO [address] [facility] [address] [place], [facility] Social History Tobacco Use Types Packs/Day Years [...]
--- OUTSIDE RECORDS SUMMARY | 2024-12-08 14:35 | XMS_ITS | Clinical Summary ---
Author Organization [employer] Address [id number] [address] [place] [address] Care Team Providers Care It Consulting Manager Name Role Phone Haleigh Her APRN-BLOCK OUT MACHINE OPERATOR Primary Care Provid er Allergies Active Allergy [...] Mass Index 25.82 07/18/2023 8:45 AM EST Plan of Treatment Health Maintenance Due Date Last Done Comments Chlamydia Screening 2004 Depression Screening 2016 Adult BMI Screening 07/18/2024 07/18/2023 Tobacco Screening 07/18/2024 07/18/2023 Influenza Vaccine 02/14/2025 DTaP,Tdap and Td Vaccines (7 - Td or Tdap) 02/05/2027 02/05/2017, 06/05/2009, 01/26/2007, Additional history exists Medical Devices Not on file Insurance [facility] [employer] MEDICAID ANTHEM ANTHEM MEDICAID Care Teams It Consulting Manager Relationship Specialty Start Date End Date Haleigh Her APRN-MAXIMIL[address] [place] [address] PCP - General Family Medicine 11/27/22
--- OUTSIDE RECORDS SUMMARY | 2024-12-08 14:35 | XMS_ITS | Encounter Summary ---
Author Organization [facility] Address [address] [place] [address] Care Team Providers Care Manager Hotel Name Role Phone Unavailable Primary Care Provider Unavailabl e Encounter Details Date Type Department Care Team (Late st Contact Info) Description 07/05/2024 Abstract [facility] OB [address] [place] [address] Nelson Christiansen, DO [address] [place]ueda, [facility]11 Social History Tobacco Use Types Packs/Day [...]
--- OUTSIDE RECORDS SUMMARY | 2024-12-08 14:35 | XMS_ITS | Encounter Summary ---
Author Organization [facility] Address [address] [place] [address] Care Team Providers Care Rn Picu Name Role Phone Unavailable Primary Care Provider Unavailabl e Encounter Details Date Type Department Care Team (Late st Contact Info) Description 02/02/2024 Abstract [facility] OB [address] [facility] [place] [address] Nelson Christiansen, DO [address] [facility] [address] [place], [facility]11 Social History Tobacco Use Types Packs/Day [...]
--- NOTE | 2024-12-08 14:39 | US_ITS ---
[place] [id number] Patient Name: KALYN MARTINEZ MRN: [facility]:[id number] date: 2005 Sex: F Assigned Patient Location: [facility] Current Patient Location: Accession/Order Number: [id number] Exam Date: 12/08/2024 16:10 Report Date: 12/08/2024 16:11 At the request of: WILLI ZAMBRANO DO Procedure: US OB BPP w non-stress Biophysical profile. Reason for exam: Smaller gestational age. COMPARISON: BPP 12/03/2024. TECHNIQUE: Transabdominal imaging of the gravid uterus was obtained. FINDINGS: Reproductive Surgeon reports a BPP of 8 out of 8. RALEIGH is normal at 11.4 cm. heart rate 152 bpm. US/US OB BPP w non-stress IMPRESSION: BPP 8 out of 8. Impression dictated by: Roque Baker Jr., D.O. 12/08/2024 4:11 PM Dictation Location: [place] [address] Electronically authenticated by: [id number] Y Date: 12/08/2024 16:11
[2024-12-08 15:08] VITALS: BP 122/67; PULSE 84
== END 2024-12-08 15:45 | disposition home or self-care (01) ==
LOC: US 14:32 → FBC 14:35
PROVIDERS: Visit Provider Obstetrics & Gynecology
DX: O36.5930 Maternal care for other known or suspected poor fetal growth, third trimester, not applicable or unspecified (principal)
CPT/HCPCS: 76818

== ENCOUNTER 2024-12-13 08:24 | Outpatient (RCR) | payer MEDICAID, SELFPAY ==
[2024-11-22 14:05] VITALS: BP 127/73; PULSE 87; TEMP 36.4; O2SAT 97
[2024-11-22] MEDS: IRON SUCROSE COMPLEX 100 MG in 0.9 % SODIUM CHLORIDE 100 ML 420 MG IV (14:19)
[2024-12-10 14:19] VITALS: BP 112/75; PULSE 82; TEMP 36.3; O2SAT 98
[2024-12-10] MEDS: IRON SUCROSE COMPLEX 200 MG in 0.9 % SODIUM CHLORIDE 100 ML 220 MG IV (14:35)
== END 2024-12-13 23:59 | disposition home or self-care (01) ==
LOC: INF 08:24
PROVIDERS: Visit Provider Obstetrics & Gynecology
DX: O99.013 Anemia complicating pregnancy, third trimester (principal); Z3A.36 36 weeks gestation of pregnancy
CPT/HCPCS: 87081; 96365; J1756

== ENCOUNTER 2024-12-13 21:48 | Outpatient (REF) | payer MEDICAID, SELFPAY ==
--- OUTSIDE RECORDS SUMMARY | 2024-12-13 21:55 | XMS_ITS | CCD ---
Author Organization [facility] Care Team Providers Care Out Of Town Collection Clerk Name Role Phone Sravani Dumont Unavailable JORGE PROCTOR Primary Care Unavailable JEROMY TIJERINA Attending Unavailable Unavailable Primary Care Provider UnavailPARESH Isabel Attending Unavailable PARESH IRBY Admitting Unavailable Provider, None Primary Care Unavailable Willi Christiansen DO Attending Provider Елена, Willi Attending Unavailable Елена, Willi Admitting [...] Drug Class(es) Dates Sig (Normalized) Sig (Original) [id number] 200 actuat albuterol 0.09 mg/actuat metered dose [...] polysaccharide iron complex 391 mg oral capsule (6 sources) Start: 11-03-2024 End: 12-03-2024 take 1 capsule by mouth once daily iron polysaccharides (ProFe) 391.3 (180 Fe) MG capsule Indications: 30 weeks gestation of ([facility]) , Third trimester ([facility]) Take 1 capsule (391.3 mg) by mouth [...] Pleurodynia Episodic Other and delivery including normal (10 sources) ; Translations: [Encounter for supervision of [...] [30 weeks gestation of ] 11-03-2024 Episodic Residual codes; unclassified (2 sources) Gestation period, 36 weeks; Translations: [36 weeks gestation of ] 12-13-2024 Episodic Short gestation; low weight; and growth retardation (4 sources) [id number]-fdh-[id number] baby; Translations: [ small for gestational age, [...] Range Facility Urinalysis macro (dipstick) panel (U)on 12-13-2024 Bilirubin, UA Negative Negative - 4(70) +++ mg/dL [facility] Blood, UA Negative Negative - 50 Onur/mcL [facility] Clarity, UA Clear [facility]A Yellow [facility] Glucose, UA Negative Negative - 1999(110) ++++ mg/dL [facility] Interpretation and review of laboratory results Abnormal [facility] Ketones, UA Positive Negative - 160(16) ++++ mg/dL [facility] Comment on above: Trace Leukocytes, UA Positive Negative - 500+++ Todd/mcL [facility] Comment on above: small Nitrite, UA Negative Negative - Positive [facility] pH, UA 7 5 - 9 [facility] Protein, UA Positive Negative - 1999(20) ++++ mg/dL [facility] Comment on above: 30mg/dL Spec Grav, UA 1.025 1 - 1.03 [facility] care Urobilinogen, UA 0.2 0.2 - 12 mg/dL [facility] US OB BPP W NON-STRESS on 12-08-2024 [place] [address] Ultrasound Report Signed Patient: SHAYLA MARTINEZ MR#: [id number] : 2005 Acct:[id number] Age/Sex: 19 / F ADM Date: 12/08/24 Loc: US Attending Dr: Willi Christiansen D.O. Ordering Physician: Willi Christiansen D.O. Date of Service: 12/08/24 Procedure(s): US OB BPP w non-stress Accession Number(s): [id number] cc: Willi Christiansen D.O.; Physician,Non-Staff M.[place] [id number] Patient Name: SHAYLA MARTINEZ MRN: [id number] date: 2005 Sex: F Assigned Patient Location: [facility] Current Patient Location: Accession/Order Number: [id number] Exam Date: 12/08/2024 16:10 Report Date: 12/08/2024 16:11 At the request of: WILLI CHRISTIANSEN DO Procedure: US OB BPP w non-stress Biophysical profile. Reason for exam: Smaller gestational age. COMPARISON: BPP 12/03/2024. TECHNIQUE: Transabdominal imaging of the gravid uterus was obtained. FINDINGS: [employer] reports a BPP of 8 out of 8. RALEIGH is normal at 11.4 cm. heart rate 152 bpm. US/US OB BPP w non-stress IMPRESSION: BPP 8 out of 8. Impression dictated by: Jorden Bridges Jr.OElliott 12/08/2024 4:11 PM Dictation Location: [place] [address] Electronically authenticated by: [id number] Y Date: 12/08/2024 16:11 Dictated By: Roque Baker M.D. Signed By: 12/08/24 1613 DD/ 161 TD/TT: Numerologist: [facility] Radiology, Radiologist, MD - 12/08/2024 [place] [address] Ultrasound Report Signed Patient: SHAYLA MARTINEZ MR#: [id number] : 2005 Acct:[id number] Age/Sex: 19 / F ADM Date: 12/08/24 Loc: US Attending Dr: Willi Christiansen D.O. Ordering Physician: Willi Christiansen D.O. Date of Service: 12/08/24 Procedure(s): US OB BPP w non-stress Accession Number(s): [id number] cc: Willi Christiansen D.O.; Physician,Non-Staff Arin [place] [id number] Patient Name: SHAYLA MARTINEZ MRN: [facility]:[id number] date: 2005 Sex: F Assigned Patient Location: [facility] Current Patient Location: Accession/Order Number: [id number] Exam Date: 12/08/2024 16:10 Report Date: 12/08/2024 16:11 At the request of: WILLI CHRISTIANSEN DO Procedure: US OB BPP w non-stress Biophysical profile. Reason for exam: Smaller gestational age. COMPARISON: BPP 12/03/2024. TECHNIQUE: Transabdominal imaging of the gravid uterus was obtained. FINDINGS: [employer]er reports a BPP of 8 out of 8. RALEIGH is normal at 11.4 cm. heart rate 152 bpm. US/US OB BPP w non-stress IMPRESSION: BPP 8 out of 8. Impression dictated by: Roque Baker Jr., D.O. 12/08/2024 4:11 PM Dictation Location: [place] [address] Electronically authenticated by: [id number] Y Date: 12/08/2024 16:11 Dictated By: Roque Baker M.D. Signed By: 12/08/241612 DD/ 10 TD/TT: Numerologist: [facility] Radiology Study observation (narrative) [facility] US OB BPP W NON-STRESS Ordered By: Radiologist Radiology on 12-08-2024 [facility] [employer] Work Phone: US OB BPP W NON-STRESS on 12-03-2024 [place] [address] Ultrasound Report Signed Patient: SHAYLA MARTINEZ MR#: [id number] : 2005 Acct:[id number] Age/Sex: 18 / F ADM Date: 12/03/24 Loc: [place] Attending Dr: Willi Christiansen D.O. Ordering Physician: Willi Christiansen D.O. Date of Service: 12/03/24 Procedure(s): US OB BPP w non-stress Accession Number(s): [id number] cc: Willi Christiansen D.O.; Physician,Non-Staff [place] [address] Patient Name: SHAYLA MARTINEZ MRN: [id number] date: 2005 Sex: F Assigned Patient Location: [facility] Current Patient Location: Accession/Order Number: [id number] Exam Date: 12/03/2024 16:04 Report Date: 12/03/2024 [...] Ladd M.D. 12/03/2024 4:05 PM Dictation Location: [facility] Electronically authenticated by: [id number] Y Date: 12/03/2024 16:05 Dictated By: Froy Ladd D.O. Signed By: 12/03/241606 DD/ 04 TD/TT: Numerologist: [facility] Radiology, Radiologist, - 12/03/2024 [place] [id number] Ultrasound Report Signed Patient: SHAYLA MARTINEZ MR#: [id number] : 2005 Acct:[id number] Age/Sex: 18 / F ADM Date: 12/03/24 Loc: [facility] Attending Dr: Willi Christiansen D.O. Ordering Physician: Willi Christiansen D.O. Date of Service: 12/03/24 Procedure(s): US OB BPP w non-stress Accession Number(s): [id number] cc: Willi Christiansen D.O.; Physician,Non-Staff Arin [place] [address] Patient Name: SHAYLA MARTINEZ MRN: [facility]:[id number] date: 2005 Sex: F Assigned Patient Location: [facility] Current Patient Location: Accession/Order Number: [id number] Exam Date: 12/03/2024 16:04 Report Date: 12/03/2024 [...] Ladd M.D. 12/03/2024 4:05 PM Dictation Location: [place] [address] Electronically authenticated by: [id number] Y Date: 12/03/2024 16:05 Dictated By: Froy Ladd D.O. Signed By: 12/03/241606 DD/ 04 TD/TT: Numerologist: [facility] ChallengePost Radiology Study observation (narrative) [facility] ChallengePost US OB BPP W NON-STRESS Ordered By: Radiologist Radiology on 12-03-2024 [employer] Work Phone: No Panel InformationOrdered By: Radiologist Radiology on 11-17-2024 [facility] Property Manager e Work Phone: US OB BPP W NON-STRESS on 11-17-2024 [place] [address] Ultrasound Report Signed Patient: SHAYLA MARTINEZ MR#: [id number] : 2005 Acct:[id number] Age/Sex: 18 / F ADM Date: 11/17/24 Loc: US Attending Dr: Willi Christiansen D.O. Ordering Physician: Willi Christiansen D.O. Date of Service: 11/17/24 Procedure(s): US OB BPP w non-stress Accession Number(s): [id number] cc: Willi Christiansen D.O.; Physician,Non-Staff Arin [address] [address] Patient Name: SHAYLA MARTINEZ MRN: [facility]:[id number] date: 2005 Sex: F Assigned Patient Location: [facility] Current Patient Location: Accession/Order Number: [id number] Exam Date: 11/17/2024 14:57 Report Date: 11/17/2024 [...] Ladd M.D. 11/17/2024 2:58 PM Dictation Location: [place] [address] Electronically authenticated by: [id number] Y Date: 11/17/2024 14:58 Dictated By: Froy Ladd D.O. Signed By: 11/17/241499 DD/ 1458 TD/TT: Numerologist: [facility] Radiology, Radiologist, - 11/17/2024 [place] [address] Ultrasound Report Signed Patient: SHAYLA MARTINEZ MR#: [id number] : 2005 Acct:[id number] Age/Sex: 18 / F ADM Date: 11/17/24 Loc: US Attending Dr: Willi Christiansen D.O. Ordering Physician: Willi Christiansen D.O. Date of Service: 11/17/24 Procedure(s): US OB BPP w non-stress Accession Number(s): [id number] cc: Willi Christiansen D.O.; Physician,Non-Staff Arin [place] [id number] Patient Name: SHAYLA MARTINEZ MRN: [facility]:[id number] date: 2005 Sex: F Assigned Patient Location: [facility] Current Patient Location: Accession/Order Number: [id number] Exam Date: 11/17/2024 14:57 Report Date: 11/17/2024 [...] Ladd M.D. 11/17/2024 2:58 PM Dictation Location: [facility] [employer] Electronically authenticated by: [id number] Y Date: 11/17/2024 14:58 Dictated By: Froy Ladd D.O. Signed By: 11/17/241499 DD/ 1458 TD/TT: Numerologist: [facility] Radiology Study observation (narrative) [facility] US OB GROWTHon 11-17-[address] [address] Ultrasound Report Signed Patient: SHAYLA MARTINEZ MR#: [id number] : 2005 Acct:[id number] Age/Sex: 18 / F ADM Date: 11/17/24 Loc: US Attending Dr: Willi Christiansen D.O. Ordering Physician: Willi Christiansen D.O. Date of Service: 11/17/24 Procedure(s): US OB growth Accession Number(s): [id number] cc: Willi Christiansen D.O.; Physician,Non-Staff [place] [id number] Patient Name: SHAYLA MARTINEZ MRN: [id number] date: 2005 Sex: F Assigned Patient Location: [facility] Current Patient Location: Accession/Order Number: [id number] Exam Date: 11/17/2024 15:03 Report Date: 11/17/2024 [...] Ladd M.D. 11/17/2024 3:06 PM Dictation Location: [place] [address] Electronically authenticated by: [id number] Y Date: 11/17/2024 15:06 Dictated By: Froy Ladd D.O. Signed By: 11/17/24 1508 DD/ 1506 TD/TT: Numerologist: [facility] Radiology, Radiologist, MD - 11/17/2024 [place] [address] Ultrasound Report Signed Patient: SHAYLA MARTINEZ MR#: [id number] : 2005 Acct:[id number] Age/Sex: 18 / F ADM Date: 11/17/24 Loc: US Attending Dr: Willi Christiansen D.O. Ordering Physician: Willi Christiansen D.O. Date of Service: 11/17/24 Procedure(s): US OB growth Accession Number(s): [id number] cc: Willi Christiansen D.O.; Physician,Non-Staff Arin [place] [id number] Patient Name: SHAYLA MARTINEZ MRN: [facility]:[id number] date: 2005 Sex: F Assigned Patient Location: [facility] Current Patient Location: Accession/Order Number: [id number] Exam Date: 11/17/2024 15:03 Report Date: 11/17/2024 [...] Ladd M.D. 11/17/2024 3:06 PM Dictation Location: [place] [address] Electronically authenticated by: [id number] Y Date: 11/17/2024 15:06 Dictated By: Froy Ladd D.O. Signed By: 11/17/24 1508 DD/ 1506 TD/TT: Numerologist: [facility] Radiology Study observation (narrative) [facility] US OB GROWTHon 11-03-[address] [address] Ultrasound Report Signed Patient: SHAYLA MARTINEZ MR#: [id number] : 2005 Acct:[id number] Age/Sex: 18 / F ADM Date: 11/03/24 Loc: US Attending Dr: Kristina Cox Ordering Physician: Willi Christiansen D.O. Date of Service: 11/03/24 Procedure(s): US OB growth Accession Number(s): [id number] cc: Willi Christiansen D.O.; Physician,Non-Staff Ar[place] [id number] Patient Name: SHAYLA MARTINEZ MRN: [id number] date: 2005 Sex: F Assigned Patient Location: US Current Patient Location: US Accession/Order Number: [id number] Exam Date: 11/03/2024 17:00 Report Date: 11/03/2024 [...] Ladd M.D. 11/03/2024 5:05 PM Dictation Location: [place] [address] Electronically authenticated by: [id number] Y Date: 11/03/2024 17:05 Dictated By: Froy Ladd D.O. Signed By: 11/03/241707 DD/ 04 TD/TT: Numerologist: [facility] Radiology, Radiologist, - 11/03/2024 [place] [address] Ultrasound Report Signed Patient: SHAYLA MARTINEZ MR#: [id number] : 2005 Acct:[id number] Age/Sex: 18 / F ADM Date: 11/03/24 Loc: US Attending Dr: Kristina Cox Ordering Physician: Willi Christiansen D.O. Date of Service: 11/03/24 Procedure(s): US OB growth Accession Number(s): [id number] cc: Willi Christiansen D.O.; Physician,Non-Staff M.DElliott The [place] [id number] Patient Name: SHAYLA MARTINEZ MRN: [facility]:[id number] date: 2005 Sex: F Assigned Patient Location: Current Patient Location: US Accession/Order Number: [id number] Exam Date: 11/03/2024 17:00 Report Date: 11/03/2024 [...] Ladd M.D. 11/03/2024 5:05 PM Dictation Location: [facility] Electronically authenticated by: [id number] Y Date: 11/03/2024 17:05 Dictated By: Froy Ladd D.O. Signed By: 11/03/241707 DD/ 04 TD/TT: Numerologist: [facility] Radiology Study observation (narrative) [facility] OB GROWTHOrdered By: Radi ologist Radiology on 11-03-2024 [facility] [employer] Work Phone: Urinalysis macro (dipstick) panel (U)on 11-03-2024 Bilirubin, UA Negative Negative - 4(70) +++ mg/dL [facility] Blood, UA Positive Negative - 50 Onur/mcL [facility] Comment on above: trace-intact Clarity, UA Clear [facility] Healthca re Color, UA Yellow [facility] Glucose, UA Negative Negative - 1999(110) ++++ mg/dL [facility] Interpretation and review of laboratory results Abnormal [facility] Ketones, UA Negative Negative - 160(16) ++++ mg/dL [facility] Leukocytes, UA Positive Negative - 500+++ Todd/mcL [facility] Comment on above: small Nitrite, UA Negative Negative - Positive [facility] pH, UA 7.5 5 - 9 [facility] Protein, UA Negative Negative - 1999(20) ++++ mg/dL [facility] Spec Grav, UA 1.02 1 - 1.03 [facility] Urobilinogen, UA 0.2 0.2 - 12 mg/dL [facility] Urinalysis macro (dipstick) panel (U)on 10-04-2024 Bilirubin, UA Negative Negative - 4(70) +++ mg/dL [facility] Blood, UA Positive Negative - 50 Onur/mcL [facility] Comment on above: large Clarity, UA Clear [facility] Healthca re Color, UA Yellow [facility] Glucose, UA Negative Negative - 1999(110) ++++ mg/dL [facility] Interpretation and review of laboratory results Abnormal [facility] Ketones, UA Negative Negative - 160(16) ++++ mg/dL [facility] Leukocytes, UA Trace Negative - 500+++ Todd/mcL [facility] Nitrite, UA Negative Negative - Positive [facility] pH, UA 7 5 - 9 [facility] [employer] Protein, UA Trace Negative - 2000(20) ++++ mg/dL [facility] Spec Grav, UA 1.02 1 - 1.03 [facility] Urobilinogen, UA 0.2 0.2 - 12 mg/dL [facility] US OB 14+ WEEKS ANATOMY [...] II, MD, PHD at 25-Aug-2024 08:37:46 AM [facility] Normal Not Available Comment on above: Order Comment: US OB ANATOMY SINGLE W US OB CERVICAL LENGTH Estimated Date of Delivery: 01/06/25 Gestational Age as of 07/27/2024: 16w5d BOX TESTon 06-24-2024 BOX TEST SENT OUT [employer] [facility] BOX1 [facility] BOX2 06/24/24 [facility] BOX [facility] HCG ( test) Ql (U)o n 06-24-2024 Interpretation and review of laboratory results Abnormal [facility] Preg Test, Ur Positive Negative [facility] US OB [...] the provided clinical dates. Dictated and transcribed 06/25/24/dannie This report has been electronically signed and approved by the interpreting radiologist. Normal Not Available Comment on above: Order Comment: US OB < 14 Weeks (Abdominal ONLY) No LMP recorded. Urinalysis macro (dipstick) panel (U)on 06-24-2024 Bilirubin, UA Negative Negative - 4(70) +++ mg/dL [facility] Blood, UA Negative Negative - 50 Onur/mcL [facility] Clarity, UA Clear [facility] Color, UA Yellow [facility] Glucose, UA Negative Negative - 2000(110) ++++ mg/dL [facility] Interpretation and review of laboratory results Abnormal [facility] Ketones, UA Positive Negative - 160(16) ++++ mg/dL [facility] Comment on above: 40 Leukocytes, UA Positive Negative - 500+++ Todd/mcL [facility] Comment on above: small Nitrite, UA Negative Negative - Positive [facility] pH, UA 7 5 - 9 [facility] Protein, UA Positive Negative - 2000(20) ++++ mg/dL [facility] Comment on above: 30 Spec Grav, UA 1.025 1 - 1.03 [facility] Urobilinogen, UA 0.2 0.2 - 12 mg/dL [facility] Urine Cultureon 06-24-2024 Bacteria identified Cx Nom (U) 75,000 colonies/ml mixed bacterial skin contaminants 2 Days PERFORMED BY: [place] [address] PATHOLOGIST MELTER ASSISTANT FABBY ROSSI M.D. Normal [facility] Comment on above: Performed By: #### C UU #### [address] Consent Formson 05-18-2024 Consent Forms [id number]#[id number] Normal [facility] ED Clinical Summaryon [address] [facility] ? Urgent Care [address] [place] [address] Clinical Summary PERSON INFORMATION Name: SHAYLA MARTINEZ Age: 18 Years Sex: FEMALE : 2005 MRN: Acct#: Visit Reason: Medical screening exam; [facility] Arrival: 05/17/2024 13:06:33 Discharge: 05/17/2024 14:08:00 LOS: 000 01:02 Check In: 05/17/2024 13:06:33 Checkout: 05/17/2024 14:08:00 Address: [address] [place] [address] PCP: Provider, None PROVIDER INFORMATION Provider Role [...] DIAGNOSIS: Physical exam Patient Understands: Yes - Patient/family/critical care rn verbalizes understanding of instructions given Comment: Normal [facility] ED Patient Summaryon [address] [facility] ? Urgent Care [address] [place] [address] PATIENT DISCHARGE INSTRUCTIONS Patient Information Name: SHAYLA MARTINEZ Age: 18 Years Date of : 2005 [facility]: [id number] Reason For Visit: Medical screening exam; [facility] Arrival Time: 05/17/2024 13:06:33 Primary Care Physician: Provider, None Attending Physician: PARESH IRBY Comment: Patient Education With: Address: When: Your primary provider in your hometown , only if needed Medication Information: The exam and treatment you received today in the [facility] Emergency Department were for an urgent problem and are not intended as complete care. It is important for you to follow up with a doctor, nurse practitioner, or physician?s campus administrative assistant for ongoing care. If your symptoms [...] so we can reach you if necessary. [facility] Emergency Department has provided you with a complete list of medications post discharge. Please inform your marine specialist/provider of your visit and for further instruction on these medications. Any specific questions regarding your chronic medications and dosages should be discussed with your primary care physician(s) and/or pharmacist. Visit Information Visit Diagnosis: Diagnoses This Visit Medical screening exam ([id number] -[id number]) Physical exam (Z00.00) If you received any [...] Control and Prevention February 2014 [facility] Urgent Care Note- Provideron 05-17-2024 Urgent [...] - Pharynx pink and moist. NECK: -Supple (yjql-ks-lsrfk): non-tender. CARD: -Rate and rhythm: Regular -Edema: [...] Plan Assessment and Plan: Diagnosis: Physical exam (ALM64-AC Z00.00). Cleared for employment [Electronically Signed on: 05/17/2024 14:05 EST] __ PARESH IRBY [Verified on: 05/17/2024 14:05 EST] __ PARESH IRBY Normal [facility] Recordon [address] [facility] ? Urgent Care [address] [place] [address] PATIENT DISCHARGE INSTRUCTIONS Patient Information Name: SHAYLA MARTINEZ Age: 18 Years Date of : 2005 Reason For Visit: Medical screening exam; [facility] Arrival Time: 05/17/2024 13:06:33 Primary Care Physician: Provider, None Attending Physician: PARESH IRBY Comment: Visit Diagnosis: Diagnoses This Visit Medical screening exam ([id number] -[id number]) Physical exam (Z00.00) If you received any [...] and treatment you received today in the [facility] Urgent Care were for an urgent problem and are not intended as complete care. It is important for you to follow up with a doctor, nurse practitioner, or physician?s campus administrative assistant for ongoing care. If your symptoms [...] so we can reach you if necessary. [facility] has provided you with a complete list of medications post discharge. Please inform your marine specialist/provider of your visit and for further instruction [...] Control and Prevention February 2014 [facility] ALL CBC WITH AUTO DIFFon Erythrocyte distribution width (RBC) [Ratio] 15.7 % High 11.0 - 15.0 % [facility] Hematocrit (Bld) [Volume fraction] 30.7 % Low 36.0 - 48.0 % [facility] Healthcar e Hemoglobin (Bld) [Mass/Vol] 10.0 g/dL Low 12.0 - 16.0 g/dL [facility] Interpretation and review of laboratory results Abnormal [facility] MCH (RBC) [Entitic mass] 27.9 pg 26.7 - 34.0 pg [facility] MCHC (RBC) [Mass/Vol] 32.6 g/dL 29.9 - 35.2 g/dL [facility] MCV (RBC) [Entitic vol] 85.8 fL 81.0 - 99.0 fL [facility] Platelet mean volume (Bld) [Entitic vol] 10.9 fL 9.5 - 13.5 fL [facility] PLT 282 [facility] TB RBC 3.58 Low [facility] TB WBC 17.[address] [facility] Healthcar e CLINISYNC [facility] Healthcar e [facility] UA (CLEAN/CATCH) PARTS ASSEMBLER/CORONA RO IF IND.on 02-12-2024 BILIRUBIN URINE Negative NEGATIVE [facility] BLOOD URINE Negative NEGATIVE [facility] Healthca re Clarity (U) CLEAR CLEAR [facility] Health[facility] re Color (U) YELLOW YELLOW [facility] GLUCOSE URINE UA Negative NEGATIVE mg/dL [facility] Interpretation and review of laboratory results Abnormal [facility] Ketones Ql (U) TRACE Abnormal NEGATIVE mg/dL [facility] Leukocyte esterase Test strip Ql (U) TRACE Abnormal NEGATIVE [facility] e NITRITE URINE Negative NEGATIVE [facility] Health care pH (U) 6.5 [pH] 5.0 - 9.0 [facility] PROTEIN URINE Negative NEG/TRACE mg/dL [facility] SPECIFIC GRAVITY URINE >=1.030 Abnormal 1.005 - 1.025 [facility] URINE MICROSCOPIC INDICATED YES [facility] UROBILINOGEN URINE 0.2 EU/dL 0.2 - 1.0 EU/dL [facility]NC [facility] Healthcar e TBH BOX TEST SENT OUTon 01-15 BOX TEST SENT OUT [facility] Comment on above: See Scanned Report. [facility] Urinalysis macro (dipstick) panel (U)on 02-09-2024 Bilirubin, UA Negative Negative - 4(70) +++ mg/dL [facility] Blood, UA Positive Negative - 50 Onur/mcL [facility] Comment on above: trace-intact Clarity, UA Clear [facility] Color, UA Yellow [facility] Glucose, UA Negative Negative - 1999(110) ++++ mg/dL [facility] Interpretation and review of laboratory results Abnormal [facility] Ketones, UA Negative Negative - 160(16) ++++ mg/dL [facility] Leukocytes, UA Trace Negative - 500+++ Todd/mcL [facility] Nitrite, UA Negative Negative - Positive [facility] pH, UA 6.5 5 - 9 [facility] Protein, UA Negative Negative - 1999(20) ++++ mg/dL [facility] Spec Grav, UA 1.030 1 - 1.03 [facility] Urobilinogen, UA 0.2 0.2 - 12 mg/dL [facility] TBH BOX TEST SENT OUTon 07-17 BOX TEST SENT OUT SENT 07/29 [facility] HCG ( test) Ql (U)o n 07-25-2023 Interpretation and review of laboratory results Abnormal [facility] Preg Test, Ur Positive [facility] Urinalysis macro (dipstick) panel (U)on 07-25-2023 Bilirubin, UA Negative Negative - 4(70) +++ mg/dL [facility] Blood, UA Negative Negative - 50 Onur/mcL [facility] Clarity, UA Clear [facility] Color, UA Yellow [facility] Glucose, UA Negative Negative - 1999(110) ++++ mg/dL [facility] Interpretation and review of laboratory results Abnormal [facility] Ketones, UA Positive Negative - 160(16) ++++ mg/dL [facility] Leukocytes, UA Positive Negative - 500+++ Todd/mcL [facility] Nitrite, UA Negative Negative - Positive [facility] pH, UA 7.0 5 - 9 [facility] Protein, UA Positive Negative - 1999(20) ++++ mg/dL [facility] Spec Grav, UA 1.025 1 - 1.03 [facility] Urobilinogen, UA 1.0 0.2 - 12 mg/dL [facility] BASIC METABOLIC PANLon 07-18 Anion gap [Moles/Vol] 9 mmol/L Normal 5-15 [facility] Comment on above: Performed By: #### B MP #### [facility] ([id number]) [address] [place] [address] Calcium [Mass/Vol] 9.1 mg/dL Normal 8.5-10.5 [facility] Comment on above: Performed By: #### B MP #### [facility] ([id number]) [address] [place] [address]344 Chloride [Moles/Vol] 104 mmol/L Normal 98-109 [facility] Comment on above: Performed By: #### B MP #### [facility] ([id number]) [address] [place] [address] 48594 CO2 [Moles/Vol] 21 mmol/L Low 22-32 [facility] Comment on above: Performed By: #### B MP #### [facility] ([id number]) [address] [place] [address] 40500 Creatinine [Mass/Vol] 0.58 mg/dL Normal 0.30-1.00 [facility] Comment on above: Result Comment: METH OD TRACEABLE TO IDMS STANDARD Performed By: #### B MP #### [facility] ([id number]) [address] [place] [address]4989 eGFR (CKD-EPI) NON-RACE DEPENDENT >90 Normal >59 [facility] Comment on above: Result Comment: Reported eGFR is based on the CKD-EPI 2020 equation that does not use a race coefficient. Performed By: #### B MP #### [facility] ([id number]) [address] [place] [address]27 Glucose [Mass/Vol] 106 mg/dL High 65-99 [facility] Comment on above: Performed By: #### B MP #### [facility] ([id number]) [address] [place] [address]71 Potassium [Moles/Vol] 3.5 mmol/L Normal 3.5-5.0 [facility] Comment on above: Performed By: #### B MP #### [facility] ([id number]) [address] [place] [address] 99994 Sodium [Moles/Vol] 134 mmol/L Normal 134-146 [facility] Comment on above: Performed By: #### B MP #### [facility] ([id number]) [address] [place] [address] 64969 Urea nitrogen [Mass/Vol] 10 mg/dL Normal 5-23 [facility] Comment on above: Performed By: #### B MP #### [facility] ([id number]) [address] [place] [address]141 HCG ( test) Ql (U)o n 07-18-2023 Beta HCG ( test) Ql (U) Positive Abnormal NEG [facility] Comment on above: Performed By: #### 2 106-3 #### [facility] ([id number]) [address] [place] [address] 40421 SARS/FLU A+B/RSV by NAAT/Mol ecularon 07-18-2023 SARS/FLU [...] operators who are performing tests using either [employer] or [employer] systems and is limited to laboratories [...] repeat. Fact Sheet for Healthcare Providers: https://www.fda.gov /media/428110/downl oad Fact Sheet for Patients: https://www.fda.gov /media/248259/downl oad Normal [facility] Comment on above: Performed By: #### C OVFLR #### [facility] ([id number]) [address] [place] [address], [place] [address] URINE CULTUREon 07-18-2023 Bacteria identified Cx Nom (U) CULTURE RESULTS 50-100,000 ORGANISMS/ML NORMAL UROGENITAL ADELE Normal [facility] Comment on above: Performed By: #### 6 30-4 #### [facility] ([id number]) [address] [place] [address], [address] [place] [address] URN MACROSCOPIC NURon 2023 BILIRUBIN MARLYS Negative Normal NEG [facility] Comment on above: Performed By: #### N UM #### [facility] ([id number]) [address] [place] [address]132 BLOOD/HGB MARLYS Negative Normal NEG [facility] Comment on above: Performed By: #### N UM #### [facility] ([id number]) [address] [place] [address]6599 GLUCOSE MARLYS Negative Normal NEG [facility] Comment on above: Performed By: #### N UM #### [facility] ([id number]) [address] [place] [address] KETONES MARLYS 40 mg/dL Abnormal NEG [facility] Comment on above: Performed By: #### N UM #### [facility] ([id number]) [address] [place] [address] 38298 LEUKOCYTE ESTERASE MARLYS Small Abnormal NEG [facility] Comment on above: Performed By: #### N UM #### [facility] ([id number]) [address] [place] [address]482 NITRITE MARLYS Negative Normal NEG [facility] Comment on above: Performed By: #### N UM #### [facility] ([id number]) [address] [place] [address]65 PH MARLYS 7.5 Normal 5.0-8.5 [facility] Comment on above: Performed By: #### N UM #### [facility] ([id number]) [address] [place] [address]77 PROTEIN MARLYS 30 mg/dL Abnormal NEG [facility] Comment on above: Performed By: #### N UM #### [facility] ([id number]) [address] [place] [address] [place] [address] SPECIFIC GRAVITY MARLYS 1.020 Normal 1.003-1.035 [facility] Comment on above: Performed By: #### N UM #### [facility] ([id number]) [address] [place] [address], [place] [address] UROBILINOGEN MARLYS 2.0 eu/dL High <1.1 [facility] Comment on above: Performed By: #### N UM #### [facility] ([id number]) [address] [place] [address], [place] [address] COVID Quick Testingon 2020 Result Negative [employer] Other Quick Strepon 05-08-2021 S. pyogenes Org specific cx Ql (Throat) Negative [employer] Other Quick Strep [employer] Other XR chest 2V*on 05-08-2021 XR chest 2V* [facility] [employer] Other XR chest 2V* [facility] [employer] Other XR chest 2V* [address] [employer] Other XR chest 2V* [place] [address] [facility] [employer] Other XR chest 2V* XRay Report [employer] Other XR chest 2V* Signed [employer] Other XR chest 2V* Patient: Shayla Martinez MR#: [id number] [employer] Other XR chest 2V* [address] [employer] Other XR chest 2V* : 2005 Acct:[id number] [employer] Other XR chest 2V* Age/Sex: 15 / F ADM Date: 05/08/21 [employer] Other XR chest 2V* [facility] Room: Type: REG CLI [employer] Other XR chest 2V* Attending Dr: Sravani Dumont APRN, COREYC [employer] Other XR chest 2V* Ordering Provider: Sravani Dumont APRN, MAXIMILIANO [employer] Other XR chest 2V* Date of Service: 05/08/21 [employer] Other XR chest 2V* XR/XR chest 2V*: Cough;Wheezing [employer] Other XR chest 2V* Copies to: Sravani Dumont APRN, MAXIMILIANO [employer] Other XR chest 2V* PA AND LATERAL CHEST: [employer] Other XR chest 2V* CLINICAL HISTORY: Crackling and diminished lung sounds on exam today. Body aches, fever and [employer] Other XR chest 2V* productive cough. [employer] Other XR chest 2V* COMPARISON: None [employer] Other XR chest 2V* There is no focal parenchymal consolidation, effusion or pneumothorax. The cardiac, hilar and [employer] Other XR chest 2V* mediastinal silhouettes are within normal limits. There is no vascular congestion. The [employer] Other XR chest 2V* visualized bony thorax is intact. There is subtle reverse S-shaped scoliotic curvature. [employer] Other XR chest 2V* XR/XR chest 2V* [employer] Other XR chest 2V* IMPRESSION: [employer] Other XR chest 2V* NO ACUTE CARDIOPULMONARY ABNORMALITY. [employer] Other XR chest 2V* Impression dictated by: Radha Joyce M.D.05/08/2021 2:43 PM [employer] Other XR chest 2V* Dictation Location: [place] [address] [employer] Other XR chest 2V* Transcribed By: [facility] 05/08/21 [facility] [employer] Other XR chest 2V* Dictated By: Radha Joyce MD 05/08/21 [facility] [employer] Other XR chest 2V* Signed By: [employer] Other XR chest 2V* 05/08/21 [facility] [employer] Other Vital Signs Date Time Vital Sign Value Performing Clinician Facility 12-13-2024 15:16-0400 Body weight 108.77 kg Kristina Cox PA Work Phone: [facility] 12-13-2024 15:16-0400 Diastolic blood pressure 90 mm[Hg] Kristina Oliveraey PA Work Phone: [facility] 12-13-2024 15:16-0400 Systolic blood pressure 112 mm[Hg] Kristina Kenny PA Work Phone: [facility] 11-03-2024 09:21-0400 Body weight 105.14 kg Kristina Houston PA Work Phone: [facility] 11-03-2024 09:21-0400 Diastolic blood pressure 80 mm[Hg] Kristina Houston PA Work Phone: [facility] 11-03-2024 09:21-0400 Systolic blood pressure 120 mm[Hg] Kristina Oliveraey PA Work Phone: [facility] 10-04-2024 15:22-0400 Body weight 104.06 kg Kristina Cox PA Work Phone: [facility] 10-04-2024 15:22-0400 Diastolic blood pressure 76 mm[Hg] Kristina RHODES Work Phone: [facility] 10-04-2024 15:22-0400 Systolic blood pressure 110 mm[Hg] Kristina RHODES Work Phone: [facility] 07-27-2024 14:56-0500 Body weight 94.8 kg Willi Елена DO Work Phone: [facility] 07-27-2024 14:56-0500 Diastolic blood pressure 70 mm[Hg] Willi Елена DO Work Phone: [facility] 07-27-2024 14:56-0500 Systolic blood pressure 122 mm[Hg] Willi Елена DO Work Phone: [facility] 02-09-2024 11:08-0400 Body weight 99.7 kg Willi Елена DO Work Phone: [facility] 02-09-2024 11:08-0400 Diastolic blood pressure 80 mm[Hg] Willi Елена DO Work Phone: [facility] 02-09-2024 11:08-0400 Systolic blood pressure 120 mm[Hg] Willi Елена DO Work Phone: [facility] 07-25-2023 10:08-0500 Body weight 73.85 kg [facility] Nurse [facility] 04-16-2022 14:30-0400 Body weight 79.74 kg Sravani Dumont Other [employer] Other 04-16-2022 14:30-0400 Diastolic blood pressure 74 mm[Hg] Sravani Dumont Other [employer] Other 04-16-2022 14:30-0400 SaO2% (BldA) [Mass fraction] 96 % Sravani Dumont Other [employer] Other 04-16-2022 14:30-0400 Systolic blood pressure 116 mm[Hg] Sravani Jonesbharath Other [employer] Other 03-08-2021 14:00-0400 Body height 166.37 cm Sravani Dumont Other [employer] Other 03-08-2021 14:00-0400 Body mass index (BMI) [Ratio] 29.33 kg/m2 Sravani Jonesbharath Other [employer] Other 03-08-2021 14:00-0400 Body weight 81.19 kg Sravani Dumont Other [employer] Other 03-08-2021 14:00-0400 Diastolic blood pressure 66 mm[Hg] Sravani Ewingmicaela Other [employer] Other 03-08-2021 14:00-0400 Respiratory rate 18 /min Sravani Dumont Other [employer] Other 03-08-2021 14:00-0400 SaO2% (BldA) [Mass fraction] 100 % Sravani Jonesbharath Other [employer] Other 03-08-2021 14:00-0400 Systolic blood pressure 120 mm[Hg] Sravani Jonesbharath Other [employer] Other Encounters Encounter Date Encounter Type Care Provider Facility Start: 12-13-2024 End: 12-13-2024 Office outpatient visit 15 minutes Kristina RHODES Work Phone: [facility] Comment on above: Third trimester preg andrew ([facility]); 36 weeks gestation of ([facility]) Start: 12-13-2024 End: 12-13-2024 Bamboo flowsheet Kristina Houston PA Work Phone: [facility] Start: 12-13-2024 End: 12-13-2024 Bamboo flowsheet Kristina RHODES Work Phone: [facility] Start: 12-08-2024 End: 12-08-2024 Clinisync Result Encounter Willi Елена DO Work Phone: [facility] Unsolicited Start: 12-08-2024 End: 12-08-2024 Clinisync Result Encounter Willi Елена DO Work Phone: [facility] Unsolicited Start: 12-03-2024 End: 12-03-2024 Clinisync Result Encounter Willi Елена DO Work Phone: [facility] Unsolicited Start: 12-03-2024 End: 12-03-2024 Clinisync Result Encounter Willi Елена DO Work [...] [facility] Start: 11-03-2024 End: 11-03-2024 Clinisync Result Encounter Willi Елена DO Work Phone: [facility] Unsolicited Start: 11-03-2024 End: 11-03-2024 ambulatory KRISTINA COX Not Available Start: 11-03-2024 End: 11-03-2024 Office outpatient visit 15 minutes Kristina RHODES Work Phone: [facility] Comment on above: 30 weeks gestation o f ; Third trimester ; SGA (small for gestational age); Antepartum anemia; Constipation, unspecified constipation type Start: 10-04-2024 End: 10-04-2024 ambulatory KRISTINA COX Not Available Start: 10-04-2024 End: 10-04-2024 Office outpatient visit 15 minutes Kristina RHODES Work Phone: [facility] Comment on above: 26 weeks gestation o f ; Second trimester ; Diabetes mellitus screening; UTI symptoms; SGA (small for gestational age) Start: 10-04-2024 End: 10-04-2024 Bamboo flowsheet Kristina RHODES Work Phone: [facility] Start: 10-04-2024 End: 10-04-2024 Bamboo flowsheet Kristina RHODES Work Phone: [facility] Start: 08-24-2024 End: 08-24-2024 ambulatory KRISTINA COX Not Available Start: 08-24-2024 End: 08-24-2024 ambulatory WILLI ЕЛЕНА Not Available Start: 07-27-2024 End: 07-27-2024 ambulatory WILLI ЕЛЕНА Not Available Start: 07-27-2024 End: 07-27-2024 Office outpatient visit 15 minutes Willi Елена DO Work Phone: [facility] Comment on above: 16 weeks gestation o f ; Second trimester ; Screening, , for anatomic survey; STD exposure; Yeast infection Start: 07-27-2024 End: 07-27-2024 Bamboo flowsheet Willi Елена DO Work Phone: [facility] Start: 07-27-2024 End: 07-27-2024 Bamboo flowsheet Willi Елена DO Work Phone: [facility] Start: 06-24-2024 End: 06-24-2024 ambulatory Willi Елена [facility] Work Phone: Start: 06-24-2024 End: 06-24-2024 Departed Referred Willi Елена DO Work Phone: [facility] Start: 06-24-2024 [...] Start: 05-17-2024 End: 05-17-2024 ambulatory PARESH RHODES Facility:[facility] Start: 02-13-2024 End: 02-13-2024 Clinisync Result [...] 07-18-2023 Emergency department patient visit JORGE Hayden [facility] Start: 11-28-2022 End: 11-28-2022 ambulatory Sravani Dumont Other [employer] Other Start: 11-28-2022 Telephone encounter Sravani Forrest [facility] Start: 04-16-2022 End: 04-16-2022 ambulatory Sravani Dumont Other [employer] Other Start: 04-16-2022 Encounter for routin e child health examination without abnormal findings Sravani Dumont [facility] Start: 04-16-2022 Periodic preventive med est patient 12-17yrs Sravani Dumont [facility] Start: 05-08-2021 End: 05-08-2021 ambulatory Sravani Julia Other [employer] Other Start: 05-08-2021 Office outpatient vi sit 15 minutes Sravani Dumont [facility] Start: 05-08-2021 Telephone encounter Sravani Lon her [employer] Start: 03-08-2021 Office outpatient vi sit 15 minutes Sravani Dumont [facility] Procedures Date Procedure Procedure Detail Performing Clinician Start: 12-13-2024 Urnls dip stick/tabl et rgnt non-auto w/o micrscp Kristina RHODES Work Phone: Start: 12-08-2024 US OB BPP W NON-STRESS Willi Елена DO Work Phone: Start: 12-03-2024 US OB BPP W NON-STRESS Willi Елена DO Work Phone: Start: 11-17-2024 US OB GROWTH Willi Fazi [...] Work Phone: Start: 02-12-2024 [facility] UA (CLEAN/CATCH) PARTS ASSEMBLER/MICRO IF IND. Willi Елена DO Work Phone: Start: 02-09-2024 Urnls dip stick/tabl et rgnt non-auto w/o micrscp Willi Елена DO Work Phone: Start: 01-26-2024 TB BOX TEST SENT OUT C christiy Елена DO Work Phone: Start: 07-29-2023 TB BOX TEST SENT OUT C orey Елена DO Work Phone: Start: 07-25-2023 Urnls dip stick/tabl et rgnt non-auto w/o micrscp Willi Елена DO Work Phone: Plan of Treatment Date Care Activity Detail Author Start: 02-14-2025 Influenza vaccination Influenz a Vaccine (Season Ended) [facility] Start: 12-13-2024 End: 12-13-2024 Patient encounter procedure 12/13/2024 3:00 PM EDT Routine [facility] [address] [place] [address] Kristina Cox PA [address] [place], [place] [id number] Arrived [facility] Comment on above: Arrived Start: 12-13-2024 End: 12-13-2025 CULTURE, GROUP B STREP WITH SUSCEPTIBLITY CULTURE, GROUP B STREP WITH SUSCEPTIBLITY Lab Routine Third trimester ([facility]) Expected: 12/13/2024, Expires: 12/13/2025 [facility] Work Phone: Comment on above: Expected: 12/13/2024 , Expires: 12/13/2025 Start: 11-17-2024 End: 11-17-2024 Patient encounter procedure [facility] Start: 11-03-2024 End: 11-03-2025 Ferritin [Mass/volume] in Serum or Plasma Ferritin Lab Routine Antepartum anemia Expected: 11/03/2024 (Approximate), Expires: 11/03/2025 [facility] Comment on above: Expected: 11/03/2024 (Approximate), Expires: 11/03/2025 Start: 11-03-2024 End: 11-03-2025 Transferrin [Mass/volume] in Serum or Plasma Transferrin Lab Routine Antepartum anemia Expected: 11/03/2024, Expires: 11/03/2025 [facility] Comment on above: Expected: 11/03/2024 , Expires: 11/03/2025 Start: 10-20-2024 End: 10-20-2024 Patient encounter procedure 10/20/2024 11:20 AM EDT Routine [facility] [address] [place] [phone] Kristina Cox PA [address] [place], [place] [id number] [facility] Start: 10-20-2024 End: 10-20-2024 Professional / ancillary services management 10/20/2024 10:30 AM EDT Ancillary Procedure [facility] [address] [place] [phone] [facility] Start: 10-04-2024 End: 10-04-2025 CBC panel - Blood by Automated count CBC Lab Routine Diabetes mellitus screening Expected: 10/04/2024 (Approximate), Expires: 10/04/2025 [facility] Work Phone: Comment on above: Expected: 10/04/2024 [...] procedure 08/24/2024 2:30 PM EDT Routine [facility] [address] [place] [phone] Kristina Cox PA [address] [place] [address] [facility] Start: 08-24-2024 End: 08-24-2024 Professional / ancillary services management 08/24/2024 1:30 PM EDT Ancillary Procedure [facility] [address] [place], [place] [address] [phone] [facility] Start: 07-27-2024 End: 07-27-2024 Patient encounter procedure 07/27/2024 2:20 PM EST Routine [facility] [address] [place], [place] [address] [phone] Willi Christiansen DO [address] [place] [address] [facility] Start: 07-27-2024 End: 09-24-2024 Alpha fetoprotein, maternal Alpha fetoprotein, maternal Lab Routine Screening, , for anatomic survey Expected: 07/27/2024 (Approximate), Expires: 09/24/2024 [facility] Comment on above: Expected: 07/27/2024 (Approximate), Expires: 09/24/2024 Start: 07-27-2024 End: 07-27-2025 US for US OB 14+ weeks anatomy scan Imaging Routine Screening, , for anatomic survey Expected: 07/27/2024, Expires: 07/27/2025 [facility] Comment on above: Expected: 07/27/2024 , Expires: 07/27/2025 Start: 06-24-2024 Urine culture [facility] Start: 06-24-2024 End: 06-24-2025 ABO/Rh ABO/Rh Lab Routine Missed menses , unspecified gestational age Expected: 06/24/2024 (Approximate), Expires: 06/24/2025 [facility] Comment on above: Expected: 06/24/2024 (Approximate), Expires: 06/24/2025 Start: 06-24-2024 Bacteria identified in Urine by Culture [facility] Comment on above: Ordered: 06/24/2024 Start: 06-24-2024 End: 06-24-2025 Blood type and Indirect antibody screen panel - Blood Type and screen Lab Routine Missed menses , unspecified gestational age Expected: 06/24/2024 (Approximate), Expires: 06/24/2025 [facility] Work Phone: Comment on above: Expected: 06/24/2024 (Approximate), Expires: 06/24/2025 Start: 06-24-2024 End: 06-24-2025 Drugs of abuse panel - Urine by Screen method Rapid drug screen, urine Lab Routine , unspecified gestational age Encounter for supervision of normal first in first trimester Expected: 06/24/2024 (Approximate), Expires: 06/24/2025 [facility] Comment on above: Expected: 06/24/2024 (Approximate), Expires: 06/24/2025 Start: 02-15-2024 Influenza vaccination Influenza Vacc ine (#1) [facility] Start: 02-09-2024 End: 02-09-2024 Patient encounter procedure 02/09/2024 11:00 AM EDT Routine [facility] [address] [place] [phone] Willi Christiansen, [address] [place] [address] Arrived [facility] Comment on above: Arrived Start: 08-26-2023 End: 08-26-2023 Patient encounter procedure 08/26/2023 1:50 PM EDT Routine [facility] [address] [place] [phone] Willi Christiansen, [address] [place] [address] [facility] Start: 07-25-2023 End: 07-25-2024 ABO/Rh ABO/Rh Lab Routine Missed menses Expected: 07/25/2023 (Approximate), Expires: 07/25/2024 [facility] Comment on above: Expected: 07/25/2023 (Approximate), Expires: 07/25/2024 Start: 07-25-2023 End: 07-25-2024 Blood type and Indirect antibody screen panel - Blood Type and screen Lab Routine Missed menses Expected: 07/25/2023 (Approximate), Expires: 07/25/2024 [facility] Work Phone: Comment on above: Expected: 07/25/2023 (Approximate), Expires: 07/25/2024 Start: 07-25-2023 End: 07-25-2024 US Pelvis transvaginal US OB transvaginal Imaging Routine Missed menses Expected: 07/25/2023 (Approximate), Expires: 07/25/2024 [facility] Comment on above: Expected: 07/25/2023 (Approximate), Expires: 07/25/2024 Bacteria identified in Urine by Culture Urine culture Microbiology Routine Missed menses Ordered: 07/25/2023 [facility] Comment on above: Ordered: 07/25/2023 CBC W Auto Different ial panel - Blood CBC and differential Lab Routine Missed menses Ordered: 07/25/2023 [facility] Comment on above: Ordered: 07/25/2023 CBC W Auto Different ial panel - Blood CBC and differential Lab Routine Missed menses , unspecified gestational age Ordered: 06/24/2024 [facility] Comment on above: Ordered: 06/24/2024 CHLAMYDIA TRACHOMATI S (GENITO/STI) CHLAMYDIA TRACHOMATIS (GENITO/STI) Lab Routine STD exposure Ordered: 07/27/2024 [facility] Comment on above: Ordered: 07/27/2024 Hemoglobin A1c measurement Hemoglobin A1c Lab Routine Missed menses Ordered: 07/25/2023 [facility] Comment on above: Ordered: 07/25/2023 Hemoglobin A1c/Hemoglobin.total in Blood Hemoglobin A1c Lab Routine Missed menses , unspecified gestational age Ordered: 06/24/2024 [facility] Comment on above: Ordered: 06/24/2024 Hemoglobin A1c/Hemoglobin.total in Blood Hemoglobin A1c Lab Routine 30 weeks gestation of Third trimester Ordered: 11/03/2024 [facility] Work Phone: Comment on above: Ordered: 11/03/2024 Hepatitis B virus surface Ag [Presence] in Serum or Plasma by Immunoassay Hepatitis B surface antigen Lab Routine Missed menses Ordered: 07/25/2023 [facility] Comment on above: Ordered: 07/25/2023 Hepatitis B virus surface Ag [Presence] in Serum or Plasma by Immunoassay Hepatitis B surface antigen Lab Routine Missed menses , unspecified gestational age Ordered: 06/24/2024 [facility] Comment on above: Ordered: 06/24/2024 Hepatitis C virus Ab [Presence] in Serum or Plasma by Immunoassay Hepatitis C antibody Lab Routine Missed menses Ordered: 07/25/2023 [facility] Comment on above: Ordered: 07/25/2023 Hepatitis C virus Ab [Presence] in Serum or Plasma by Immunoassay Hepatitis C antibody Lab Routine Missed menses , unspecified gestational age Ordered: 06/24/2024 [facility] Comment on above: Ordered: 06/24/2024 HIV-1/HIV-2 antigen/antibody combination immunoassay HIV-1 and HIV-2 antibodies Lab Routine Missed menses Ordered: 07/25/2023 [facility] Comment on above: Ordered: 07/25/2023 HIV-1/HIV-2 antigen/antibody combination immunoassay HIV-1 and HIV-2 antibodies Lab Routine Missed menses , unspecified gestational age Ordered: 06/24/2024 [facility] Comment on above: Ordered: 06/24/2024 Neisseria gonorrhoea e DNA [Presence] in Unspecified specimen by JACEK with probe detection Neisseria gonorrhea DNA probe, direct Lab Routine STD exposure Ordered: 07/27/2024 [facility] Comment on above: Ordered: 07/27/2024 Reagin Ab [Presence] in Serum by RPR RPR Lab Routine Missed menses Ordered: 07/25/2023 [facility] Comment on above: Ordered: 07/25/2023 Reagin Ab [Presence] in Serum by RPR RPR Lab Routine Missed menses , unspecified gestational age Ordered: 06/24/2024 [facility] Comment on above: Ordered: 06/24/2024 Rubella antibody, IgG Rubella an tibody, IgG Lab Routine Missed menses Ordered: 07/25/2023 [facility] Comment on above: Ordered: 07/25/2023 Rubella antibody, IgG Rubella an tibody, IgG Lab Routine Missed menses , unspecified gestational age Ordered: 06/24/2024 [facility] Comment on above: Ordered: 06/24/2024 SURESWAB(R) ADVANCED VAGINITIS PLUS, TMA SURESWAB(R) ADVANCED VAGINITIS PLUS, TMA Pathology and Cytology Routine STD exposure Ordered: 07/27/2024 [facility] Work Phone: Comment on above: Ordered: 07/27/2024 Payers Date Payer Category Payer Self-pay 2023 Medicaid [id number] 2022 Medicaid [id number] 2021 [facility] [id number] 2016 Unknown [id number] 2.1 [id number] 2004 Unknown [id number] 2.16.8 [id number] 2004 Unknown [id number] 2.16.84 0.1.082652.3.579.2.1259 2004 Unknown [id number] 2.16.84 0.1.966853.3.579.2.1259 2004 Unknown [id number] 2.16.84 0.1.147752.3.579.2.9 2004 Unknown [id number] 2.16.84 0.1.928870.3.579.2.9 2004 Unknown [id number] 2.16.84 0.1.581432.3.579.2.9 2004 Unknown [id number] 2.16.84 0.1.340440.3.579.2.9 2004 Unknown [id number] 2.16.84 0.1.186593.3.579.2.9 2004 Unknown [id number] 2.16.84 0.1.056888.3.579.2.9 2004 Unknown [id number] 2.16.84 0.1.209106.3.579.2.1258 2004 Unknown [id number] 2.16.84 0.1.124474.3.579.2.9 2004 Unknown [id number] 2.16.84 0.1.671644.3.579.2.9 2004 Unknown [id number] 2.16.84 0.1.224476.3.579.2.1259 Unknown [facility] [id number] Unknown [id number] 2.16.8 40.1.839142.3.579.2.531 Social History Date Type Detail Facility Start: 06-24-2024 Sex Assigned At [employer] Other Tobacco smoking stat [facility] Tobacco smoking consumption unknown [facility] Start: 06-03-2023 [facility] Start: 2004 Sex Assigned At Female [facility] Start: 07-07-2023 Gender identity Identifies as female gender (finding) [facility] Start: 07-07-2023 Sexual orientation Heterosexual (finding) [facility] Start: 06-24-2024 Tobacco smoking status ALIS Ex-smoker [facility] History of tobacco use Current smoker [facility] History of tobacco use Cigarette Smoker [facility] Start: 06-24-2024 History of Social function [facility] Start: 05-13-2018 Tobacco smoking status NHIS Never smoked tobacco (finding) [facility] Start: 06-26-2024 Sex Female (finding) [facility] Clinical Notes 03-08-2021 to 12-13-2024 CARMELO Adam - 12/13/2024 3:00 PM CARMELO Marroquin - 11/03/2024 9:00 AM Cony Steveloan, MICKEY - 10/04/2024 3:00 PM Dave Raulwaldo, MICKEY - 07/27/2024 2:20 PM EST Note Date & Type Note Facility 12-13-2024 History of Presen t illness Narrative Reason for Appointment: Patient ID: Shayla Martinez is a 19 y.o. female who presents [...] ASSESSMENT & PLAN ICD-10-CM 1. Third trimester ([facility]) Z34.93 POCT urinalysis dipstick manually resulted CULTURE, GROUP B STREP WITH SUSCEPTIBLITY CULTURE, GROUP B STREP WITH SUSCEPTIBLITY 2. 36 weeks gestation of ([facility]) Z3A.36 Documented by CARMELO Adam on behalf of: CARMELO Adam documented in this encounter [facility] 11-03-2024 History of Presen t illness Narrative [...] nursing note reviewed. Exam conducted with a plastic card grader cardroom present. Vitals: There is no height or [...] of: CARMELO Adam documented in this encounter [facility] 10-04-2024 History of Presen t illness Narrative [...] nursing note reviewed. Exam conducted with a plastic card grader cardroom present. Vitals: There is no height or [...] UTI symptoms. Macrobid will be sent to [facility] in [place]. Patient given orders to have CBC/1 hour gtt obtained prior to next scheduled appointment. Patient also given order to have growth scan done for possible SGA. Patient to return to clinic in 2-3 weeks. Documented by Swetha Regan LPN on behalf of: Dr. Willi Christiansen DO documented in this encounter [facility] 07-27-2024 History of Presen t illness Narrative [...] nursing note reviewed. Exam conducted with a plastic card grader cardroom present. Vitals: There is no height or [...] Willi Christiansen DO documented in this encounter [facility] 06-24-2024 History of Presen t illness Narrative [...] Roseanna Escamilla LPN documented in this encounter [facility] 05-18-2024 Note [id number] [facility] 05-17-2024 Note Patient Education Materials Foll s: [facility] 02-09-2024 History of Presen t illness [...] nursing note reviewed. Exam conducted with a plastic card grader cardroom present. Vitals: There is no height or [...] Willi Christiansen DO documented in this encounter [facility] 07-25-2023 History of Presen t illness Narrative [...] or undercooked meat, and stay away from [facility]. Patient has also been advised to [...] Jacquelyn Steel MA documented in this encounter [facility] 04-16-2022 Evaluation note Encounter Date Diagnosis Assessment [...] understanding and agrees to plan of care. [employer] Other 11-23-2021 Evaluation note* Encounter Date Diagnosis [...] stool studies. Apr, Nausea (ICD-10 - R11.0) [employer] Other 09-23-2021 Evaluation note* Encounter Date Diagnosis [...] verbalized understanding and agreement with treatment plan. [employer] Other Evaluation noteNo InformationN[employer] Other Evaluation note* Diagnosis Missed menses [facility] Diagnosis 37 weeks gestation of [facility] Diagnosis Missed menses , unspecified gestational age Encounter for supervision of normal first in first trimester Nausea Nausea alone [facility] noteNo assessment [facility] Work Phone: Evaluation note* Diagnosis 16 weeks gestation of Second trimester state, incidental Screening, , for anatomic survey Encounter for anatomic survey STD exposure Yeast infection documented in this encounter [facility] Healthcare[facility]* Diagnosis 26 weeks gestation of Second trimester state, incidental Diabetes mellitus screening Screening for diabetes mellitus UTI symptoms SGA (small for gestational age) [id number] without mention of malnutrition, unspecified (weight) documented in this encounter [facility] HealthcareEvaluation note* Diagnosis 30 weeks gestation of Third trimester state, incidental SGA (small for gestational age) [id number]-sig-[id number] without mention of malnutrition, unspecified (weight) Antepartum anemia Constipation, unspecified constipation type [facility] Diagnosis Third trimester ([facility]-HCC) state, incidental 36 weeks gestation of ([facility]HS-HCC) [facility] N[facility] - Reported* Type Description Date Medical History APNEA Surgical History tonsilectomy and adenoidectomy [employer] Other Summary Purpose Family History No Family [...] section and content) DATE CREATED AUTHOR 07/20/2023 [facility] DATE CREATED AUTHOR AUTHOR'S ORGANIZ ATION 05/18/2024 [facility] DATE CREATED AUTHOR AUTHOR'S ORGANIZ ATION 06/30/2024 [facility] DATE CREATED AUTHOR AUTHOR'S ORGANIZ ATION 11/10/2024 [facility] EPIC Care Teams (unrecognized [...] BE BASED ON THE PRIMARY CLINICAL RECORDS. [facility] [employer] provides no warranty or guarantee of the accuracy or completeness of information in this document.
== END 2024-12-13 21:49 | disposition home or self-care (01) ==
LOC: LAB 21:48
PROVIDERS: Visit Provider Physician Assistant
DX: Z34.93 Encounter for supervision of normal pregnancy, unspecified, third trimester (principal); Z3A.36 36 weeks gestation of pregnancy
CPT/HCPCS: 87081

== ENCOUNTER 2024-12-17 04:03 | Observation (INO) | payer MEDICAID, SELFPAY ==
--- OUTSIDE RECORDS SUMMARY | 2024-12-13 15:00 | XMS_ITS | Encounter Summary ---
Author Organization [facility] Address [address] [place] [address] Care Team Providers Care Completion Engineer Name Role Phone Unavailable Primary Care Provider Unavailabl e Reason for Visit * Reason Comments Routine Visit Encounter Details Date Type Department Care Team (Late st Contact Info) Description 12/13/2024 3:00 PM EDT Routine [facility] OB [address] [place] [phone] Kristina Echavarria PA [address] [facility] [place] [address] Third trimester ([facility]); 36 weeks gestation of ([facility]) Social History Tobacco Use Types Packs/Day Years [...] Sign Reading Time Taken Comments Blood Pressure 112/90 12/13/2024 3:16 PM EDT Pulse - - Temperature - - Respiratory Rate - - Oxygen Saturation - - Inhaled Oxygen Concentration - - Weight 109 kg (239 lb 12.8 oz) 12/13/2024 3:16 P M EDT Height - - Body Mass Index - - documented in this encounter Progress Notes * CARMELO Adam - 12/13/2024 3:00 PM EDT Reason for Appointment: Patient ID: Shayla Corado is a 19 y.o. female who presents for Routine Visit Patient presents today for Return OB appointment. MEDICATIONS Current Outpatient Medications Medication Instructions MV-Min-Fe Fum-FA-DHA ( 1 PO) 1 each, Daily ALLERGIES No Known Allergies PROBLEMS Active Ambulatory Problems Diagnosis Date [...] Negative. Gastrointestinal: Negative. Genitourinary: Negative. Musculoskeletal: Negative. Lower extremity edema Skin: Negative. Neurological: Negative. All other systems reviewed and are negative. Hematological: Negative. Endocrine: Negative. Allergic/Immunologic: Negative. OBJECTIVE Objective: Physical Exam Constitutional: Appearance: Normal appearance. She is normal weight. HENT: Head: Normocephalic. Cardiovascular: Rate and Rhythm: Normal rate. Pulses: Normal pulses. Pulmonary: Effort: Pulmonary effort is normal. Breath sounds: Normal breath sounds. Abdominal: Palpations: Abdomen is soft. Musculoskeletal: General: Normal range of motion. Neurological: General: No focal deficit present. Mental Status: She is alert and oriented to person, place, and time. Psychiatric: Mood and Affect: Mood normal. Behavior: Behavior normal. Thought Content: Thought content normal. Judgment: Judgment normal. Vitals and nursing note reviewed. Vitals: There is no height or weight on file to calculate BMI. BP: 112/90 Patient's last menstrual period was 03/25/2024. ASSESSMENT & PLAN ICD-10-CM 1. Third trimester ([facility]) Z34.93 POCT urinalysis dipstick manually resulted CULTURE, GROUP B STREP WITH SUSCEPTIBLITY CULTURE, GROUP B STREP WITH SUSCEPTIBLITY 2. 36 weeks gestation of ([facility]) Z3A.36 Patient is doing well but has complaints of being tired and having maternal discomfort due to . Patient verbalized frequent movement and was instructed to perform kick counts three times per day. labor precautions were given, LARC consent was signed/declined, and GBS was obtained. Cervical check was performed and patient is 1cm dilated. Orders Placed This Encounter Procedures CULTURE, GROUP B STREP WITH SUSCEPTIBLITY POCT urinalysis dipstick manually resulted Follow Up: Patient is to return to office in 1 week for routine OB appointment Documented by CARMELO Adam on behalf of: CARMELO Adam documented in this encounter Miscellaneous Notes * Addendum Note - Mini Thorne LPN - 12/13/2024 3:00 PM EDTAddended by: MINI THORNE on: 12/13/2024 04:57 PM Modules accepted: Orders documented in this encounter Plan of Treatment Upcoming Encounters Date Type Department Care Team (Late st Contact Info) Description 12/21/2024 2:00 PM EDT Routine [facility] OB [address] [place] [address] Nelson Christiansen, DO [address] [facility] [place] [address] Scheduled Orders Name Type Priority Associated Diagnoses Orde r Schedule CULTURE, GROUP B STREP WITH SUSCEPTIBLITY Lab Routine Third trimester ([facility]) Expected: 12/13/2024, Expires: 12/13/2025 documented as of this encounter Procedures Procedure Name Priority Date/Time Associated Diagnosis Comments POCT URINALYSIS DIPSTICK Routine 12/13/2024 3:13 PM EDT Third trimester ([facility]) documented in this encounter Results * (ABNORMAL) POCT urinalysis dipstick manually resulted (12/13/2024 3:13 PM EDT) Color, UA Yellow Clarity, UA Clear Glucose, UA Negative Negative - 2000(110) ++++ mg/dL Bilirubin, UA Negative Negative - 4(70) +++ mg/dL Ketones, UA Positive Negative - 160(16) ++++ mg/dL Comment:Trace Spec Grav, UA 1.025 1 - 1.03 Blood, UA Negative Negative - 50 Onur/mcL pH, UA 7.0 5 - 9 Protein, UA Positive Negative - 2000(20) ++++ mg/dL Comment:30mg/dL Urobilinogen, UA 0.2 0.2 - 12 mg/dL Leukocytes, UA Positive Negative - 500+++ Todd/mcL Comment:small Nitrite, UA Negative Negative - Positive Urine 12/13/2024 3:13 PM EDT Kristina RHODES POINT OF CARE TEST ENTER/EDIT OR DERABLES Final Result documented in this encounter Visit Diagnoses Diagnosis Third trimester ([facility]) state, incidental 36 weeks gestation of ([facility]) documented in this encounter
--- OUTSIDE RECORDS SUMMARY | 2024-12-17 04:07 | XMS_ITS | Encounter Summary ---
Author Organization [facility] Address [address] [place] [address] Care Team Providers Care Fitter Up Name Role Phone Unavailable Primary Care Provider Unavailabl e Encounter Details Date Type Department Care Team (Late st Contact Info) Description 10/07/2024 Results Follow-Up [facility] [address] [address] Mini Thorne LPN [address] [place] [address] Social History Tobacco Use Types [...] [address] [address] Nelson Christiansen, [address] Ila Sosa [place], [id number] documented as of this encounter Visit Diagnoses Not on filedocumented in this encounter
--- OUTSIDE RECORDS SUMMARY | 2024-12-17 04:07 | XMS_ITS | Encounter Summary ---
Author Organization [facility] Address [address] [place] [address] Care Team Providers Care Chairman And Ceo Name Role Phone Unavailable Primary Care Provider Unavailabl e Encounter Details Date Type Department Care Team (Late st Contact Info) Description 11/05/2024 Abstract [facility] [address] [place] [address] Nelson Christiansen DO [facility] [address] [place], [facility] Social History Tobacco Use Types Packs/Day [...] Description 12/21/2024 2:00 PM EDT Routine [facility] [address] [place] [address] Nelson Christiansen DO [facility] [address] [place], [facility] documented as of this encounter Visit Diagnoses Not on filedocumented in this encounter
--- OUTSIDE RECORDS SUMMARY | 2024-12-17 04:07 | XMS_ITS | CCD ---
Author Organization [facility] Inform ion Partnership [facility] Care Team Providers Care Pond Scaler Name Role Phone Sravani Dumont Unavailable [phone] JORGE PROCTOR Primary Care Unavailable JEROMY TIJERINA Attending Unavailable Unavailable Primary Care Provider Unavailradha e PARESH IRBY Attending Unavailable PARESH IRBY Admitting Unavailable Provider, None Primary Care Unavailable Willi Christiansen DO Attending Provider Willi Christiansen Attending Unavailable Rene Christianseny Admitting Unavailable ЕЛЕНА, WILLI Attending Unavailable ЕЛЕНА, WILLI Referring Unavailable KENNY, KRISTINA Attending Unavailable KENNY, KRISTINA [...] Drug Class(es) Dates Sig (Normalized) Sig (Original) [id number] 200 actuat albuterol 0.09 mg/actuat metered dose [...] MG capsule Indications: 30 weeks gestation of ([facility]) , Third trimester ([facility]) Take 1 capsule (391.3 mg) by mouth [...] low weight; and growth retardation (4 sources) Fchch-ymn-syjox baby; Translations: [ small for gestational age, [...] Negative Negative - 4(70) +++ mg/dL [facility] Blood, UA Negative Negative - 50 Onur/mcL [facility] Clarity, UA Clear [facility] re Color, UA Yellow [facility] Glucose, UA Negative Negative - 2000(110) ++++ mg/dL [facility] Interpretation and review of laboratory results Abnormal [facility] Ketones, UA Positive Negative - 160(16) ++++ mg/dL [facility] Comment on above: Trace Leukocytes, UA Positive Negative - 500+++ Todd/mcL [facility] Comment on above: small Nitrite, UA Negative Negative - Positive [facility] pH, UA 7 5 - 9 [facility] Protein, UA Positive Negative - 1999(20) ++++ mg/dL [facility] Comment on above: 30mg/dL Spec Grav, UA 1.025 1 - 1.03 [facility] Urobilinogen, UA 0.2 0.2 - 12 mg/dL [facility] US OB BPP W NON-STRESS on 12-08-2024 [place] [address] Ultrasound Report Signed Patient: SHAYLA MARTINEZ MR#: [id number] : 2005 Acct:[id number] Age/Sex: 19 / F ADM Date: 12/08/24 Loc: US Attending Dr: Willi Christiansen D.O. Ordering Physician: Willi Christiansen D.O. Date of Service: 12/08/24 Procedure(s): US OB BPP w non-stress Accession Number(s): [id number] cc: Willi Christiansen D.O.; Physician,Non-Staff M.DElliott [place] [id number] Patient Name: SHAYLA MARTINEZ MRN: [id number] date: 2005 Sex: F Assigned Patient Location: [facility] Current Patient Location: Accession/Order Number: [id number] Exam Date: 12/08/2024 16:10 Report Date: 12/08/2024 16:11 At the request of: WILLI CHRISTIANSEN DO Procedure: US OB BPP w non-stress Biophysical profile. Reason for exam: Smaller gestational age. COMPARISON: BPP 12/03/2024. TECHNIQUE: Transabdominal imaging of the gravid uterus was obtained. FINDINGS: Gasfitter reports a BPP of 8 out of 8. RALEIGH is normal at 11.4 cm. heart rate 152 bpm. US/US OB BPP w non-stress IMPRESSION: BPP 8 out of 8. Impression dictated by: Roque Baker Jr., D.O. 12/08/2024 4:11 PM Dictation Location: [place] [address] Electronically authenticated by: [id number] Y Date: 12/08/2024 16:11 Dictated By: Roque Baker M.D. Signed By: 12/08/241612 DD/ 10 TD/TT: Risk Control Director: [facility] Radiology, Radiologist, MD - 12/08/2024 [place] [address] Ultrasound Report Signed Patient: SHAYLA MARTINEZ MR#: [id number] : 2005 Acct:[id number] Age/Sex: 19 / F ADM Date: 12/08/24 Loc: US Attending Dr: Willi Christiansen D.O. Ordering Physician: Willi Christiansen D.O. Date of Service: 12/08/24 Procedure(s): US OB BPP w non-stress Accession Number(s): [id number] cc: Willi Christiansen D.O.; Physician,Non-Staff Arin [place] [id number] Patient Name: SHAYLA MARTINEZ MRN: [facility]:[id number] date: 2005 Sex: F Assigned Patient Location: [facility] Current Patient Location: Accession/Order Number: [id number] Exam Date: 12/08/2024 16:10 Report Date: 12/08/2024 16:11 At the request of: WILLI CHRISTIANSEN DO Procedure: US OB BPP w non-stress Biophysical profile. Reason for exam: Smaller gestational age. COMPARISON: BPP 12/03/2024. TECHNIQUE: Transabdominal imaging of the gravid uterus was obtained. FINDINGS: Gasfitter reports a BPP of 8 out of 8. RALEIGH is normal at 11.4 cm. heart rate 152 bpm. US/US OB BPP w non-stress IMPRESSION: BPP 8 out of 8. Impression dictated by: Roque Baker Jr., D.O. 12/08/2024 4:11 PM Dictation Location: [place] [address] Electronically authenticated by: [id number] Y Date: 12/08/2024 16:11 Dictated By: Roque Baker M.D. Signed By: 12/08/24 161 DD/ 161 TD/TT: Risk Control Director: [facility] Radiology Study observation (narrative) [facility] US OB BPP W NON-STRESS Ordered By: Radiologist Radiology on 12-08-2024 [facility] [employer] Work Phone: US OB BPP W NON-STRESS on 12-03-2024 [place] [address] Ultrasound Report Signed Patient: SHAYLA MARTINEZ MR#: [id number] : 2005 Acct:[id number] Age/Sex: 18 / F ADM Date: 12/03/24 Loc: FBCO Attending Dr: Willi Christiansen D.O. Ordering Physician: Willi Christiansen D.O. Date of Service: 12/03/24 Procedure(s): US OB BPP w non-stress Accession Number(s): [id number] cc: Willi Christiansen D.O.; Physician,Non-Staff Arin [address] [address] Patient Name: SHAYLA MARTINEZ MRN: [facility]:[id number] date: 2005 Sex: F Assigned [place] [facility] Current Patient Location: Accession/Order Number: [id number] Exam Date: 12/03/2024 16:04 Report Date: 12/03/2024 [...] Ladd M.D. 12/03/2024 4:05 PM Dictation Location: [place] [address] Electronically authenticated by: [id number] Y Date: 12/03/2024 16:05 Dictated By: Froy Ladd D.O. Signed By: 12/03/241606 DD/ 04 TD/TT: Risk Control Director: [facility] Radiology, Radiologist, MD - 12/03/2024 [place] [address] Ultrasound Report Signed Patient: SHAYLA MARTINEZ MR#: [id number] : 2005 Acct:[id number] Age/Sex: 18 / F ADM Date: 12/03/24 [place] [facility] Attending Dr: Willi Christiansen D.O. Ordering Physician: Willi Christiansen D.O. Date of Service: 12/03/24 Procedure(s): US OB BPP w non-stress Accession Number(s): [id number] cc: Willi Christiansen D.O.; Physician,Non-Staff Arin [place] [id number] Patient Name: SHAYLA MARTINEZ MRN: [facility]:[id number] date: 2005 Sex: F Assigned Patient [place] [facility] Current Patient Location: Accession/Order Number: [id number] Exam Date: 12/03/2024 16:04 Report Date: 12/03/2024 [...] Ladd M.D. 12/03/2024 4:05 PM Dictation Location: [place] [address] Electronically authenticated by: [id number] Y Date: 12/03/2024 16:05 Dictated By: Froy Ladd D.O. Signed By: 12/03/241606 DD/ 1605 TD/TT: Risk Control Director: [facility] [employer] Radiology Study observation (narrative) [facility] [employer] US OB BPP W NON-STRESS Ordered By: Radiologist Radiology on 12-03-2024 [email or web address] Work Phone: No Panel InformationOrdered By: Radiologist Radiology on 11-17-2024 [email or web address] Work Phone: US OB BPP W NON-STRESS on 11-17-2024 [place] [address] Ultrasound Report Signed Patient: SHAYLA MARTINEZ MR#: [id number] : 2005 Acct:[id number] Age/Sex: 18 / F ADM Date: 11/17/24 Loc: US Attending Dr: Willi Christiansen D.O. Ordering Physician: Willi Christiansen D.O. Date of Service: 11/17/24 Procedure(s): US OB BPP w non-stress Accession Number(s): [id number] cc: Willi Christiansen D.O.; Physician,Non-Staff Arin [place] [address] Patient Name: SHAYLA MARTINEZ MRN: [id number] date: 2005 Sex: F Assigned Patient Location: [facility] Current Patient Location: Accession/Order Number: [id number] Exam Date: 11/17/2024 14:57 Report Date: 11/17/2024 [...] Ladd M.D. 11/17/2024 2:58 PM Dictation [facility] Electronically authenticated by: [id number] Y Date: 11/17/2024 14:58 Dictated By: Froy Ladd D.O. Signed By: 11/17/24 1500 DD/ 1458 TD/TT: Risk Control Director: [facility] Radiology, Radiologist, - 11/17/2024 [place] [address] Ultrasound Report Signed Patient: SHAYLA MARTINEZ MR#: [id number] : 2005 Acct:[id number] Age/Sex: 18 / F ADM Date: 11/17/24 Loc: US Attending Dr: Willi Christiansen D.O. Ordering Physician: Willi Christiansen D.O. Date of Service: 11/17/24 Procedure(s): US OB BPP w non-stress Accession Number(s): [id number] cc: Willi Christiansen D.O.; Physician,Non-Staff M.Jorden [place] [address] Patient Name: SHAYLA MARTINEZ MRN: [facility]:[id number] date: 2005 Sex: F Assigned Patient Location: [facility] Current Patient Location: Accession/Order Number: [id number] Exam Date: 11/17/2024 14:57 Report Date: 11/17/2024 [...] Ladd M.D. 11/17/2024 2:58 PM Dictation Location: [place] [address] Electronically authenticated by: [id number] Y Date: 11/17/2024 14:58 Dictated By: Froy Ladd D.O. Signed By: 11/17/24 1500 DD/ 1458 TD/TT: Risk Control Director: [facility] Radiology Study observation (narrative) [facility] US OB GROWTHon 11-17-[address] [address] Ultrasound Report Signed Patient: SHAYLA MARTINEZ MR#: [id number] : 2005 Acct:[id number] Age/Sex: 18 / F ADM Date: 11/17/24 Loc: US Attending Dr: Willi Christiansen D.O. Ordering Physician: Willi Christiansen D.O. Date of Service: 11/17/24 Procedure(s): US OB growth Accession Number(s): [id number] cc: Willi Christiansen D.O.; Physician,Non-Staff Arin [place] [id number] Patient Name: SHAYLA MARTINEZ MRN: [id number] date: 2005 Sex: F Assigned Patient Location: [facility] Current Patient Location: Accession/Order Number: [id number] Exam Date: 11/17/2024 15:03 Report Date: 11/17/2024 [...] Ladd M.D. 11/17/2024 3:06 PM Dictation Location: [place] [address] Electronically authenticated by: [id number] Y Date: 11/17/2024 15:06 Dictated By: Froy Ladd D.O. Signed By: 11/17/24 1508 DD/ 1506 TD/TT: Risk Control Director: [facility] Radiology, Radiologist, MD - 11/17/2024 [place] [address] Ultrasound Report Signed Patient: SHAYLA MARTINEZ MR#: [id number] : 2005 Acct:[id number] Age/Sex: 18 / F ADM Date: 11/17/24 Loc: US Attending Dr: Willi Christiansen D.O. Ordering Physician: Willi Christiansen D.O. Date of Service: 11/17/24 Procedure(s): US OB growth Accession Number(s): [id number] cc: Willi Christiansen D.O.; Physician,Non-Staff Arin [place] [address] Patient Name: SHAYLA MARTINEZ MRN: [facility]:[id number] date: 2005 Sex: F Assigned Patient Location: [facility] Current Patient Location: Accession/Order Number: [id number] Exam Date: 11/17/2024 15:03 Report Date: 11/17/2024 [...] Ladd M.D. 11/17/2024 3:06 PM Dictation Location: [employer] Electronically authenticated by: [id number] Y Date: 11/17/2024 15:06 Dictated By: Froy Ladd D.O. Signed By: 11/17/24 1508 DD/ 1506 TD/TT: Risk Control [facility] Rad[facility] Study observation (narrative) [facility] US OB GROWTHon 11-03-[address] [address] Ultrasound Report Signed Patient: SHAYLA MARTINEZ MR#: [id number] : 2005 Acct:[id number] Age/Sex: 18 / F ADM Date: 11/03/24 Loc: US Attending Dr: Kristina Cox Ordering Physician: Willi Christiansen D.O. Date of Service: 11/03/24 Procedure(s): US OB growth Accession Number(s): [id number] cc: Willi Christiansen D.O.; Physician,Non-Staff Arin [address] [address] Patient Name: SHAYLA MARTINEZ MRN: [id number] date: 2005 Sex: F Assigned Patient Location: US Current Patient Location: US Accession/Order Number: [id number] Exam Date: 11/03/2024 17:00 Report Date: 11/03/2024 [...] 11/03/2024 5:05 PM Dictation Location: [place] [address] Electronically authenticated by: [id number] Y Date: 11/03/2024 17:05 Dictated By: Froy Ladd D.O. Signed By: 11/03/241707 DD/ 04 TD/TT: Risk Control Director: [facility] Radiology, Radiologist, MD - 11/03/2024 [place] [address] Ultrasound Report Signed Patient: SHAYLA MARTINEZ MR#: [id number] : 2005 Acct:[id number] Age/Sex: 18 / F ADM Date: 11/03/24 Loc: US Attending Dr: Kristina Cox Ordering Physician: Willi Christiansen D.O. Date of Service: 11/03/24 Procedure(s): US OB growth Accession Number(s): [id number] cc: Willi Christiansen D.O.; Physician,Non-Staff Arin [place] [address] Patient Name: SHAYLA MARTINEZ MRN: [facility]:[id number] date: 2005 Sex: F Assigned Patient Location: Current Patient Location: US Accession/Order Number: [id number] Exam Date: 11/03/2024 17:00 Report Date: 11/03/2024 [...] 11/03/2024 5:05 PM Dictation Location: [place] [address] Electronically authenticated by: [id number] Y Date: 11/03/2024 17:05 Dictated By: Froy Ladd D.O. Signed By: 11/03/241707 DD/ 04 TD/TT: Risk Control Director: [facility] Radiology Study observation (narrative) [facility] US OB GROWTHOrdered By: Amadou [email or web address] Radiology on 11-03-2024 [facility] [employer] Work Phone: Urinalysis macro (dipstick) panel (U)on 11-03-2024 Bilirubin, UA Negative Negative - 4(70) +++ mg/dL [facility] Blood, UA Positive Negative - 50 Ounr/mcL [facility] Comment on above: trace-intact Clarity, UA Clear [facility] re Color, UA Yellow [facility] Health[facility] Glucose, UA Negative Negative - 1999(110) ++++ mg/dL [facility] Interpretation and review of laboratory results Abnormal [facility] Ketones, UA Negative Negative - 160(16) ++++ mg/dL [facility] Leukocytes, UA Positive Negative - 500+++ Todd/mcL [facility] Comment on above: small Nitrite, UA Negative Negative - Positive [facility] pH, UA 7.5 5 - 9 [facility] [employer]et[employer]+ e Protein, UA Negative Negative - 1999(20) ++++ mg/dL [facility] Spec Grav, UA 1.02 1 - 1.03 [facility] Urobilinogen, UA 0.2 0.2 - 12 mg/dL [facility] Urinalysis macro (dipstick) panel (U)on 10-04-2024 Bilirubin, UA Negative Negative - 4(70) +++ mg/dL [facility] Blood, UA Positive Negative - 50 Onur/mcL [facility] Healthcare Comment on above: large Clarity, UA Clear [facility] Health[facility] re Color, UA Yellow [facility] Glucose, UA Negative Negative - 1999(110) ++++ mg/dL [facility] Interpretation and review of laboratory results Abnormal [facility] Ketones, UA Negative Negative - 160(16) ++++ mg/dL [facility] Leukocytes, UA Trace Negative - 500+++ Todd/mcL [facility] Nitrite, UA Negative Negative - Positive [facility] pH, UA 7 5 - 9 [facility] Protein, UA Trace Negative - 1999(20) ++++ mg/dL [facility] Spec Grav, UA 1.02 1 - 1.03 [facility] Urobilinogen, UA 0.2 0.2 - 12 mg/dL [facility] US OB 14+ WEEKS ANATOMY [...] MD, PHD at 25-Aug-2024 08:37:46 AM [facility] Normal Not Available Comment on above: Order Comment: US OB ANATOMY SINGLE W US OB CERVICAL LENGTH Estimated Date of Delivery: 01/06/25 Gestational Age as of 07/27/2024: 16w5d BOX TESTon 06-24-2024 BOX TEST SENT OUT [facility] [employer] [facility] BOX1 [facility] BOX2 06/24/24 [facility] BOX [facility] HCG ( test) Ql (U)o n 06-24-2024 Interpretation and review of laboratory results Abnormal [facility] Preg Test, Ur Positive Negative [facility] [...] the provided clinical dates. Dictated and transcribed 06/25/24/dpjeannie This report has been electronically signed and approved by the interpreting radiologist. Normal Not Available Comment on above: Order Comment: US OB < 14 Weeks (Abdominal ONLY) No LMP recorded. Urinalysis macro (dipstick) panel (U)on 06-24-2024 Bilirubin, UA Negative Negative - 4(70) +++ mg/dL [facility] Blood, UA Negative Negative - 50 Onur/mcL [facility] Clarity, UA Clear [facility] Color, UA Yellow [facility] Glucose, UA Negative Negative - 2000(110) ++++ mg/dL [facility] Interpretation and review of laboratory results Abnormal [facility] Ketones, UA Positive Negative - 160(16) ++++ mg/dL [facility] Comment on above: 40 Leukocytes, UA Positive Negative - 500+++ Todd/mcL [facility] Comment on above: small Nitrite, UA Negative Negative - Positive [facility] pH, UA 7 5 - 9 [facility] Health[facility] e Protein, UA Positive Negative - 2000(20) ++++ mg/dL [facility] Comment on above: 30 Spec Grav, UA 1.025 1 - 1.03 [facility] Urobilinogen, UA 0.2 0.2 - 12 mg/dL [facility] Urine Cultureon 06-24-2024 Bacteria identified Cx Nom (U) 75,000 colonies/ml mixed bacterial skin contaminants 2 Days PERFORMED BY: [place] [address] PATHOLOGIST PATTERN KEEPER FABBY ROSSI M.D. Normal [facility] Comment on above: Performed By: #### C UU #### [address] Consent Formson 05-18-2024 Consent Forms [id number] Normal [facility] ED Clinical Summaryon 2023 ED Clinical Summary [facility] ? Urgent Care [address] [place] [address] Clinical Summary PERSON INFORMATION Name: SHAYLA MARTINEZ Age: 18 Years Sex: FEMALE : 2005 MRN: Acct#: Visit Reason: Medical screening exam; [facility] Arrival: 05/17/2024 13:06:33 Discharge: 05/17/2024 14:08:00 LOS: 000 01:02 Check In: 05/17/2024 13:06:33 Checkout: 05/17/2024 14:08:00 Address: [address] [place], [place] [id number] PCP: Provider, None PROVIDER INFORMATION Provider Role [...] DIAGNOSIS: Physical exam Patient Understands: Yes - Patient/family/emergency care attendant verbalizes understanding of instructions given Comment: Normal [facility] ED Patient Summaryon 024 ED Patient Summary [facility] ? Urgent Care [address] [place] [address] PATIENT DISCHARGE INSTRUCTIONS Patient Information Name: SHAYLA MARTINEZ Age: 18 Years Date of : [address] [facility]: [id number] Reason For Visit: Medical screening exam; [facility] Arrival Time: 05/17/2024 13:06:33 Primary Care Physician: Provider, None Attending Physician: PARESH IRBY Comment: Patient Education With: Address: When: Your primary provider in your hometown , only if needed Medication Information: The exam and treatment you received today in the [facility] Emergency Department were for an urgent problem and are not intended as complete care. It is important for you to follow up with a doctor, nurse practitioner, or physician?s administrative sales assistant for ongoing care. If your [...] can reach you if necessary. [facility] Emergency Department has provided you with a complete list of medications post discharge. Please inform your billet checker/provider of your visit and for further instruction on these medications. Any specific questions regarding your chronic medications and dosages should be discussed with your primary care physician(s) and/or pharmacist. Visit Information Visit Diagnosis: Diagnoses This Visit Medical screening exam ([id number] -[id number]) Physical exam (Z00.00) If you received any [...] Disease Control and Prevention February 2014 [facility] Urgent Care Note- Provideron 05-17-2024 Urgent [...] - Pharynx pink and moist. NECK: -Supple (kndv-zt-daaiy): non-tender. CARD: -Rate and rhythm: Regular -Edema: [...] Plan Assessment and Plan: Diagnosis: Physical exam ([id number] Z00.00). Cleared for employment [Electronically Signed on: 05/17/2024 14:05 EST] __ PARESH IRBY [Verified on: 05/17/2024 14:05 EST] __ PARESH IRBY Normal [facility] Urgent Care [place] 024 Urgent Care Record [facility] ? Urgent Care [address] [place] [id number] PATIENT DISCHARGE INSTRUCTIONS Patient Information Name: SHAYLA MARTINEZ Age: 18 Years Date of : 2005 Reason For Visit: Medical screening exam; [facility] Arrival Time: 05/17/2024 13:06:33 Primary Care Physician: Provider, None Attending Physician: PARESH IRBY Comment: Visit Diagnosis: Diagnoses This Visit Medical screening exam ([id number] -[id number]) Physical exam (Z00.00) If you received any [...] and treatment you received today in the [facility] Urgent Care were for an urgent problem and are not intended as complete care. It is important for you to follow up with a doctor, nurse practitioner, or physician?s administrative sales assistant for ongoing care. If your [...] can reach you if necessary. [facility] Care has provided you with a complete list of medications post discharge. Please inform your billet checker/provider of your visit and for further instruction [...] Disease Control and Prevention February 2014 [facility] ALL CBC WITH AUTO DIFFon Erythrocyte distribution width (RBC) [Ratio] 15.7 % High 11.0 - 15.0 % [facility] Hematocrit (Bld) [Volume fraction] 30.7 % Low 36.0 - 48.0 % [facility] Healthcar e Hemoglobin (Bld) [Mass/Vol] 10.0 g/dL Low 12.0 - 16.0 g/dL [facility] Interpretation and review of laboratory results Abnormal [facility] MCH (RBC) [Entitic mass] 27.9 pg 26.7 - 34.0 pg [facility] MCHC (RBC) [Mass/Vol] 32.6 g/dL 29.9 - 35.2 g/dL [facility] MCV (RBC) [Entitic vol] 85.8 fL 81.0 - 99.0 fL [facility] Platelet mean volume (Bld) [Entitic vol] 10.9 fL 9.5 - 13.5 fL [facility] are [facility] PLT 282 [facility] TB RBC 3.58 Low [facility] WBC 17.2 High [facility] UA (CLEAN/CATCH) NURSING EDUCATION SPECIALIST/CORONA RO IF IND.on 02-12-2024 BILIRUBIN URINE Negative NEGATIVE [facility]care BLOOD URINE Negative NEGATIVE [facility] Healthca re Clarity (U) CLEAR CLEAR [facility] Healthca re Color (U) YELLOW YELLOW [facility] GLUCOSE URINE UA Negative NEGATIVE mg/dL [facility] Interpretation and review of laboratory results Abnormal [facility] Ketones Ql (U) TRACE Abnormal NEGATIVE mg/dL [facility] Leukocyte esterase Test strip Ql (U) TRACE Abnormal NEGATIVE [facility] NITRITE URINE Negative NEGATIVE [facility] Health care pH (U) 6.5 [pH] 5.0 - 9.0 [facility] PROTEIN URINE Negative NEG/TRACE mg/dL [facility] SPECIFIC GRAVITY URINE >=1.030 Abnormal 1.005 - 1.025 [facility] URINE MICROSCOPIC INDICATED YES [facility] UROBILINOGEN URINE 0.2 EU/dL 0.2 - 1.0 EU/dL [facility] BOX TEST SENT OUTon 01-15 BOX TEST SENT OUT [facility] Comment on above: See Scanned Report. GROUP [facility] Urinalysis macro (dipstick) panel (U)on 02-09-2024 Bilirubin, UA Negative Negative - 4(70) +++ mg/dL [facility] Blood, UA Positive Negative - 50 Onur/mcL [facility] Healthcare Comment on above: trace-intact Clarity, UA Clear [facility] Color, UA Yellow [facility] Healthcar e Glucose, UA Negative Negative - 1999(110) ++++ mg/dL [facility] Interpretation and review of laboratory results Abnormal [facility] Ketones, UA Negative Negative - 160(16) ++++ mg/dL [facility] Leukocytes, UA Trace Negative - 500+++ Todd/mcL [facility] Nitrite, UA Negative Negative - Positive [facility] pH, UA 6.5 5 - 9 [facility] e Protein, UA Negative Negative - 1999(20) ++++ mg/dL [facility] Spec Grav, UA 1.030 1 - 1.03 [facility] Urobilinogen, UA 0.2 0.2 - 12 mg/dL [facility] BOX TEST SENT OUTon 07-17 BOX TEST SENT OUT SENT 07/29 [facility] HCG ( test) Ql (U)o n 07-25-2023 Interpretation and review of laboratory results Abnormal [facility] Preg Test, Ur Positive [facility] Urinalysis macro (dipstick) panel (U)on 07-25-2023 Bilirubin, UA Negative Negative - 4(70) +++ mg/dL [facility] Blood, UA Negative Negative - 50 Onur/mcL [facility] Healthcare Clarity, UA Clear [facility] Healthca re Color, UA Yellow [facility] Glucose, UA Negative Negative - 1999(110) ++++ mg/dL [facility] Interpretation and review of laboratory results Abnormal [facility] Ketones, UA Positive Negative - 160(16) ++++ mg/dL [facility] Leukocytes, UA Positive Negative - 500+++ Todd/mcL [facility] Nitrite, UA Negative Negative - Positive [facility] pH, UA 7.0 5 - 9 [facility] e Protein, UA Positive Negative - 2000(20) ++++ mg/dL [facility] Spec Grav, UA 1.025 1 - 1.03 [facility] Urobilinogen, UA 1.0 0.2 - 12 mg/dL [facility] BASIC METABOLIC PANLon 07-18 Anion gap [Moles/Vol] 9 mmol/L Normal 5-15 [facility] Comment on above: Performed By: #### B MP #### [facility] ([id number]) [address] [place] [address]6819 Calcium [Mass/Vol] 9.1 mg/dL Normal 8.5-10.5 [facility] Comment on above: Performed By: #### B MP #### [facility] ([id number]) [address] [place] [address]77 Chloride [Moles/Vol] 104 mmol/L Normal 98-109 [facility] Comment on above: Performed By: #### B MP #### [facility] ([id number]) [address] [place] [address] 48977 CO2 [Moles/Vol] 21 mmol/L Low 22-32 [facility] Comment on above: Performed By: #### B MP #### [facility] ([id number]) [address] [place] [address] 27907 Creatinine [Mass/Vol] 0.58 mg/dL Normal 0.30-1.00 [facility] Comment on above: Result Comment: METH OD TRACEABLE TO IDMS STANDARD Performed By: #### B MP #### [facility] ([id number]) [address] [place] [address] 08353 eGFR (CKD-EPI) NON-RACE DEPENDENT >90 Normal >59 [facility] Comment on above: Result Comment: Reported eGFR is based on the CKD-EPI 2020 equation that does not use a race coefficient. Performed By: #### B MP #### [facility] ([id number]) [address] [place] [address] 48061 Glucose [Mass/Vol] 106 mg/dL High 65-99 [facility] Comment on above: Performed By: #### B MP #### [facility] ([id number]) [address] [place] [address] 67100 Potassium [Moles/Vol] 3.5 mmol/L Normal 3.5-5.0 [facility] Comment on above: Performed By: #### B MP #### [facility] ([id number]) [address] [place] [address] 03729 Sodium [Moles/Vol] 134 mmol/L Normal 134-146 [facility] Comment on above: Performed By: #### B MP #### [facility] ([id number]) [address] [place] [address] 45751 Urea nitrogen [Mass/Vol] 10 mg/dL Normal 5-23 [facility] Comment on above: Performed By: #### B MP #### [facility] ([id number]) [address] [place] [address]271 HCG ( test) Ql (U)o n 07-18-2023 Beta HCG ( test) Ql (U) Positive Abnormal NEG [facility] Comment on above: Performed By: #### 2 106-3 #### [facility] ([id number]) [address] [place] [address] [place] [address] SARS/FLU A+B/RSV by NAAT/Mol ecularon 07-18-2023 SARS/FLU [...] operators who are performing tests using either Arynga DX or Sunnyloft systems and is limited to laboratories that [...] repeat. Fact Sheet for Healthcare Providers: https://www.fda.gov /media/287708/downl oad Fact Sheet for Patients: https://www.fda.gov /media/423752/downl oad Normal [facility] Comment on above: Performed By: #### C OVFLR #### [facility] ([id number]) [address] [place] [address] [place] [address] URINE CULTUREon 07-18-2023 Bacteria identified Cx Nom (U) CULTURE RESULTS 50-100,000 ORGANISMS/ML NORMAL UROGENITAL ADELE Normal [facility] Comment on above: Performed By: #### 6 30-4 #### [facility] ([id number]) [address] [place] [address], [address] [place] [address] URN MACROSCOPIC NURon 2023 BILIRUBIN MARLYS Negative Normal NEG [facility] Comment on above: Performed By: #### N UM #### [facility] ([id number]) [address] [place] [address], [place] [address] BLOOD/HGB MARLYS Negative Normal NEG [facility] Comment on above: Performed By: #### N UM #### [facility] ([id number]) [address] [place] [address] GLUCOSE MARLYS Negative Normal NEG [facility] Comment on above: Performed By: #### N UM #### [facility] ([id number]) [address] [place] [address] KETONES MARLYS 40 mg/dL Abnormal NEG [facility] Comment on above: Performed By: #### N UM #### [facility] ([id number]) [address] [place] [address] [place] [address] LEUKOCYTE ESTERASE MARLYS Small Abnormal NEG [facility] Comment on above: Performed By: #### N UM #### [facility] ([id number]) [address] [place] [address] [place] [address] NITRITE MARLYS Negative Normal NEG [facility] Comment on above: Performed By: #### N UM #### [facility] ([id number]) [address] [place] [address] 17678 PH MARLYS 7.5 Normal 5.0-8.5 [facility] Comment on above: Performed By: #### N UM #### [facility] ([id number]) [address] [place] [address] PROTEIN MARLYS 30 mg/dL Abnormal NEG [facility] Comment on above: Performed By: #### N UM #### [facility] ([id number]) [address] [facility], [place] [address] SPECIFIC GRAVITY MARLYS 1.020 Normal 1.003-1.035 [facility] Comment on above: Performed By: #### N UM #### [facility] ([id number]) [address] [place] [address], [place] [address] UROBILINOGEN MARLYS 2.0 eu/dL High <1.1 [facility] Comment on above: Performed By: #### N UM #### [facility] ([id number]) [address] [place] [address], [place] [address] COVID Quick Testingon 2020 Result Negative [facility] Other Quick Strepon 05-08-2021 S. pyogenes Org specific cx Ql (Throat) Negative [facility] Other Quick Strep [facility] Other XR chest 2V*on 05-08-2021 XR chest 2V* [facility] Other XR chest 2V* [facility] Other XR chest 2V* [address] [place] [address] [facility] Other XR chest 2V* [place] [address] [facility] Other XR chest 2V* XRay Report [facility] Other XR chest 2V* Signed [facility] Other XR chest 2V* Patient: Shayla Martinez MR#: [id number] [facility] Other XR chest 2V* [id number] [facility] Other XR chest 2V* : 2005 Acct:[id number] [facility] Other XR chest 2V* Age/Sex: 15 / F ADM Date: 05/08/21 [facility] Other XR chest 2V* [facility] Other XR chest 2V* Attending Dr: SAHIL Carranza APRN [facility] Other XR chest 2V* Ordering Provider: Sravani Dumont APRN, MAXIMILIANO [facility] Other XR chest 2V* Date of Service: 05/08/21 [facility] Other XR chest 2V* XR/XR chest 2V*: Cough;Wheezing [facility] Other XR chest 2V* Copies to: Sravani Dumont APRN, MAXIMILIANO [facility] Other XR chest 2V* PA AND LATERAL CHEST: [facility] Other XR chest 2V* CLINICAL HISTORY: Crackling and diminished lung sounds on exam today. Body aches, fever and [facility] Other XR chest 2V* productive cough. [facility] Other XR chest 2V* COMPARISON: None [facility] Other XR chest 2V* There is no focal parenchymal consolidation, effusion or pneumothorax. The cardiac, hilar and [facility] Other XR chest 2V* mediastinal silhouettes are within normal limits. There is no vascular congestion. The [facility] Other XR chest 2V* visualized bony thorax is intact. There is subtle reverse S-shaped scoliotic curvature. [facility] Other XR chest 2V* XR/XR chest 2V* [facility] Other XR chest 2V* IMPRESSION: [facility] Other XR chest 2V* NO ACUTE CARDIOPULMONARY ABNORMALITY. [facility] Other XR chest 2V* Impression dictated by: Radha Joyce M.D.05/08/2021 2:43 PM [facility] Other XR chest 2V* Dictation Location: [facility]- [facility] Other XR chest 2V* Transcribed By: [facility] 05/08/21 [facility] Other XR chest 2V* Dictated By: Radha Joyce MD 05/08/21 [facility] Other XR chest 2V* Signed By: [facility] Other XR chest 2V* 05/08/21 [facility] Other Vital Signs Date Time Vital Sign Value Performing Clinician Facility 12-13-2024 15:16-0400 Body weight 108.77 kg Kristina Cox PA Work Phone: [facility] 12-13-2024 15:16-0400 Diastolic blood pressure 90 mm[Hg] Kristina Tecumseh PA Work Phone: [facility] 12-13-2024 15:16-0400 Systolic blood pressure 112 mm[Hg] Kristina Tecumseh PA Work Phone: [facility] 11-03-2024 09:21-0400 Body weight 105.14 kg Kristina Kenny PA Work Phone: [facility] 11-03-2024 09:21-0400 Diastolic blood pressure 80 mm[Hg] Kristina Kenny PA Work Phone: [facility] 11-03-2024 09:21-0400 Systolic blood pressure 120 mm[Hg] Kristina Tecumseh PA Work Phone: [facility] 10-04-2024 15:22-0400 Body weight 104.06 kg Kristina Kenny PA Work Phone: [facility] 10-04-2024 15:22-0400 Diastolic blood pressure 76 mm[Hg] Kristina RHODES Work Phone: [facility] 10-04-2024 15:22-0400 Systolic blood pressure 110 mm[Hg] Kristina RHODES Work Phone: [facility] 07-27-2024 14:56-0500 Body weight 94.8 kg Willi Елена DO Work Phone: [facility] 07-27-2024 14:56-0500 Diastolic blood pressure 70 mm[Hg] Willi Елена DO Work Phone: [facility] 07-27-2024 14:56-0500 Systolic blood pressure 122 mm[Hg] Willi Елена DO Work Phone: [facility] 02-09-2024 11:08-0400 Body weight 99.7 kg Wlili Елена DO Work Phone: [facility] 02-09-2024 11:08-0400 Diastolic blood pressure 80 mm[Hg] Willi Елена DO Work Phone: [facility] 02-09-2024 11:08-0400 Systolic blood pressure 120 mm[Hg] Willi Елена DO Work Phone: [facility] 07-25-2023 10:08-0500 Body weight 73.85 kg [facility] Nurse [facility] 04-16-2022 14:30-0400 Body weight 79.74 kg Sravani Dumont Other [facility] Other 04-16-2022 14:30-0400 Diastolic blood pressure 74 mm[Hg] Sravani Dumont Other [facility] Other 04-16-2022 14:30-0400 SaO2% (BldA) [Mass fraction] 96 % Sravani Dumont Other [facility] Other 04-16-2022 14:30-0400 Systolic blood pressure 116 mm[Hg] Sravani Dumont Other [facility] Other 03-08-2021 14:00-0400 Body height 166.37 cm Sravani Dumont Other [facility] Other 03-08-2021 14:00-0400 Body mass index (BMI) [Ratio] 29.33 kg/m2 Sravani Dumont Other [facility] Other 03-08-2021 14:00-0400 Body weight 81.19 kg Sravani Dumont Other [facility] Other 03-08-2021 14:00-0400 Diastolic blood pressure 66 mm[Hg] Sravani Jonesbharath Other [facility] Other 03-08-2021 14:00-0400 Respiratory rate 18 /min Sravani Dumont Other [facility] Other 03-08-2021 14:00-0400 SaO2% (BldA) [Mass fraction] 100 % Sravani Ewingmicaela Other [facility] Other 03-08-2021 14:00-0400 Systolic blood pressure 120 mm[Hg] Sravani Dumont Other [facility] Other Encounters Encounter Date Encounter Type Care Provider Facility Start: 12-13-2024 End: 12-13-2024 Office outpatient visit 15 minutes Kristina RHODES Work Phone: [facility] Comment on above: Third trimester preg andrew ([facility]); 36 weeks gestation of ([facility]) Start: 12-13-2024 End: 12-13-2024 ambulatory KRISTINA COX Not Available Start: 12-13-2024 End: 12-13-2024 Bamboo flowsheet Kristina RHODES Work Phone: [facility] Start: 12-13-2024 [...] visit 15 minutes Kristina RHODES Work Phone: [facility] Comment on above: 30 weeks gestation o f ; Third trimester ; SGA (small for gestational age); Antepartum anemia; Constipation, unspecified constipation type Start: 10-04-2024 End: 10-04-2024 ambulatory KRISTINA COX Not Available Start: 10-04-2024 End: 10-04-2024 Office outpatient visit 15 minutes Kristina RHODES Work Phone: [facility] Comment on above: 26 weeks gestation o f ; Second trimester ; Diabetes mellitus screening; UTI symptoms; SGA (small for gestational age) Start: 10-04-2024 End: 10-04-2024 Bamboo flowsheet Kristina RHODES Work Phone: [facility] Start: 10-04-2024 End: 10-04-2024 Bamboo flowsheet Kristina RHODES Work Phone: [facility] Start: 08-24-2024 End: 08-24-2024 ambulatory KRISTINA KENNY Not Available Start: 08-24-2024 End: 08-24-2024 ambulatory WILLI ЕЛЕНА Not Available Start: 07-27-2024 End: 07-27-2024 ambulatory WILLI ЕЛЕНА Not Available Start: 07-27-2024 End: 07-27-2024 Office outpatient visit 15 minutes Willi Елена DO Work Phone: [facility] Comment on above: 16 weeks gestation o f ; Second trimester ; Screening, , for anatomic survey; STD exposure; Yeast infection Start: 07-27-2024 End: 07-27-2024 Bamboo flowsheet Willi Елена DO Work Phone: [facility] Start: 07-27-2024 End: 07-27-2024 Bamboo flowsheet Willi Елена DO Work Phone: [facility] Start: 06-24-2024 End: 06-24-[address] [facility] Work Phone: Start: 06-24-2024 End: 06-24-2024 Departed Referred Willi Елена DO Work Phone: [facility] Start: 06-24-2024 End: 06-24-2024 Clinisync Result [...] Start: 05-17-2024 End: 05-17-2024 ambulatory PARESH RHODES Facility:[facility] Start: 02-13-2024 End: 02-13-2024 Clinisync Result Encounter [...] 01-26-2024 End: 02-10-2024 Clinisync Result Encounter Willi Еелна DO Work Phone: [facility] Unsolicited Start: 01-26-2024 End: 02-10-2024 Clinisync Result Encounter Willi Елена DO Work Phone: [facility] Unsolicited Start: 01-26-2024 End: 01-26-2024 ambulatory WILLI ЕЛЕНА Not Available Start: 01-06-2024 End: 01-06-2024 ambulatory KRISTINA COX Not Available Start: 12-23-2023 End: 12-23-2023 ambulatory WILLI ЕЛЕНА Not Available Start: 07-29-2023 [...] 07-18-2023 Emergency department patient visit JORGE Hayden [facility] Start: 11-28-2022 End: 11-28-2022 ambulatory Sravani Dumont Other [facility] Other Start: 11-28-2022 Telephone encounter Sravani sims [facility] Start: 04-16-2022 End: 04-16-2022 ambulatory Sravani Dumont Other [facility] Other Start: 04-16-2022 Encounter for routin e child health examination without abnormal findings Sravani Dumont [facility] Start: 04-16-2022 Periodic preventive med est patient 12-17yrs Sravani Dumont [facility] Start: 05-08-2021 End: 05-08-2021 ambulatory Sravani Julia Other [facility] Other Start: 05-08-2021 Office outpatient vi sit 15 minutes Sravani Dumont [facility] Start: 05-08-2021 Telephone encounter Sravani Lon her [employer] Start: 03-08-2021 Office outpatient vi sit 15 [...] Work Phone: Start: 02-12-2024 [facility] UA (CLEAN/CATCH) NURSING EDUCATION SPECIALIST/MICRO IF IND. Willi Елена DO Work Phone: [...] Influenza vaccination Influenz a Vaccine (Season Ended) [facility] Healthcare Start: 12-13-2024 End: 12-13-2024 Patient encounter procedure 12/13/2024 3:00 PM EDT Routine [facility] [address] [place] [address] Kristina Cox PA [address] [place], [place] [id number] Arrived [facility] Comment on above: Arrived Start: 12-13-2024 End: 12-13-2025 CULTURE, GROUP B STREP WITH SUSCEPTIBLITY CULTURE, GROUP B STREP WITH SUSCEPTIBLITY Lab Routine Third trimester ([facility]) Expected: 12/13/2024, Expires: 12/13/2025 [facility] Work Phone: Comment on above: Expected: 12/13/2024 , Expires: 12/13/2025 Start: 11-17-2024 End: 11-17-2024 Patient encounter procedure [facility] Start: 11-03-2024 End: 11-03-2025 Ferritin [Mass/volume] in Serum or Plasma Ferritin Lab Routine Antepartum anemia Expected: 11/03/2024 (Approximate), Expires: 11/03/2025 [facility] Comment on above: Expected: 11/03/2024 (Approximate), Expires: 11/03/2025 Start: 11-03-2024 End: 11-03-2025 Transferrin [Mass/volume] in Serum or Plasma Transferrin Lab Routine Antepartum anemia Expected: 11/03/2024, Expires: 11/03/2025 [facility] Comment on above: Expected: 11/03/2024 , Expires: 11/03/2025 Start: 10-20-2024 End: 10-20-2024 Patient encounter procedure 10/20/2024 11:20 AM EDT Routine [facility] [address] [place] [phone] Kristina Cox PA [address] [place] [address] [facility] Start: 10-20-2024 End: 10-20-2024 Professional / ancillary services management 10/20/2024 10:30 AM EDT Ancillary Procedure [facility] [address] [place] [id number] [facility] Start: 10-04-2024 End: 10-04-2025 CBC panel - Blood by Automated count CBC Lab Routine Diabetes mellitus screening Expected: 10/04/2024 (Approximate), Expires: 10/04/2025 [facility] Work Phone: Comment on above: Expected: 10/04/2024 (Approximate), Expires: 10/04/2025 Start: 10-04-2024 End: 04-21-2026 Measurement of glucose 1 hour after glucose [...] for gestational age) Expected: 10/04/2024, Expires: 02/03/2025 [facility] Comment on above: Expected: 10/04/2024 , Expires: 02/03/2025 Start: 08-24-2024 End: 08-24-2024 Patient encounter procedure 08/24/2024 2:30 PM EDT Routine [facility] [address] [place] [phone] Kristina Cox PA [address] [place] [address] [facility] Start: 08-24-2024 End: 08-24-2024 Professional / ancillary services management 08/24/2024 1:30 PM EDT Ancillary Procedure [facility] [address] [place] [address] [facility] Start: 07-27-2024 End: 07-27-2024 Patient encounter procedure 07/27/2024 2:20 PM EST Routine [facility] [address] [place] [phone] Willi Christiansen DO [address] [place] [address] [facility] Start: 07-27-2024 End: 09-24-2024 Alpha fetoprotein, maternal Alpha fetoprotein, maternal Lab Routine Screening, , for anatomic survey Expected: 07/27/2024 (Approximate), Expires: 09/24/2024 [facility] Comment on above: Expected: 07/27/2024 (Approximate), Expires: 09/24/2024 Start: 07-27-2024 End: 07-27-2025 US for US OB 14+ weeks anatomy scan Imaging Routine Screening, , for anatomic survey Expected: 07/27/2024, Expires: 07/27/2025 [facility] Comment on above: Expected: 07/27/2024 , Expires: 07/27/2025 Start: 06-24-2024 Urine culture [facility] Start: 06-24-2024 End: 06-24-2025 ABO/Rh ABO/Rh Lab Routine Missed menses , unspecified gestational age Expected: 06/24/2024 (Approximate), Expires: 06/24/2025 [facility] Comment on above: Expected: 06/24/2024 (Approximate), Expires: 06/24/2025 Start: 06-24-2024 Bacteria identified in Urine by Culture [facility] Comment on above: Ordered: 06/24/2024 Start: 06-24-2024 End: 06-24-2025 Blood type and Indirect antibody screen panel - Blood Type and screen Lab Routine Missed menses , unspecified gestational age Expected: 06/24/2024 (Approximate), Expires: 06/24/2025 [facility] Work Phone: Comment on above: Expected: 06/24/2024 (Approximate), Expires: 06/24/2025 Start: 06-24-2024 End: 06-24-2025 Drugs of abuse panel - Urine by Screen method Rapid drug screen, urine Lab Routine , unspecified gestational age Encounter for supervision of normal first in first trimester Expected: 06/24/2024 (Approximate), Expires: 06/24/2025 [facility] Comment on above: Expected: 06/24/2024 (Approximate), Expires: 06/24/2025 Start: 02-15-2024 Influenza vaccination Influenza Vacc ine (#1) [facility] Start: 02-09-2024 End: 02-09-2024 Patient encounter procedure 02/09/2024 11:00 AM EDT Routine [facility] [address] [place] [phone] Willi Christiansen, DO [address] [place] [address] Arrived [facility] Comment on above: Arrived Start: 08-26-2023 End: 08-26-2023 Patient encounter procedure 08/26/2023 1:50 PM EDT Routine [facility] [address] [place] [phone] Willi Christiansen, DO [address] [place] [address] [facility] Start: 07-25-2023 End: 07-25-2024 ABO/Rh ABO/Rh Lab Routine Missed menses Expected: 07/25/2023 (Approximate), Expires: 07/25/2024 [facility] Comment on above: Expected: 07/25/2023 (Approximate), Expires: 07/25/2024 Start: 07-25-2023 End: 07-25-2024 Blood type and Indirect antibody screen panel - Blood Type and screen Lab Routine Missed menses Expected: 07/25/2023 (Approximate), Expires: 07/25/2024 [facility] Work Phone: Comment on above: Expected: 07/25/2023 (Approximate), Expires: 07/25/2024 Start: 07-25-2023 End: 07-25-2024 US Pelvis transvaginal US OB transvaginal Imaging Routine Missed menses Expected: 07/25/2023 (Approximate), Expires: 07/25/2024 [facility] Comment on above: Expected: 07/25/2023 (Approximate), Expires: 07/25/2024 Bacteria identified in Urine by Culture Urine culture Microbiology Routine Missed menses Ordered: 07/25/2023 [facility] Comment on above: Ordered: 07/25/2023 CBC W Auto Different ial panel - Blood CBC and differential Lab Routine Missed menses Ordered: 07/25/2023 [facility] Comment on above: Ordered: 07/25/2023 CBC W Auto Different ial panel - Blood CBC and differential Lab Routine Missed menses , unspecified gestational age Ordered: 06/24/2024 [facility] Comment on above: Ordered: 06/24/2024 CHLAMYDIA TRACHOMATI S (GENITO/STI) CHLAMYDIA TRACHOMATIS (GENITO/STI) Lab Routine STD exposure Ordered: 07/27/2024 [facility] Comment on above: Ordered: 07/27/2024 Hemoglobin A1c measurement Hemoglobin A1c Lab Routine Missed menses Ordered: 07/25/2023 [facility] Comment on above: Ordered: 07/25/2023 Hemoglobin A1c/Hemoglobin.total in Blood Hemoglobin A1c Lab Routine Missed menses , unspecified gestational age Ordered: 06/24/2024 [facility] Comment on above: Ordered: 06/24/2024 Hemoglobin A1c/Hemoglobin.total in Blood Hemoglobin A1c Lab Routine 30 weeks gestation of Third trimester Ordered: 11/03/2024 [facility] Work Phone: Comment on above: Ordered: 11/03/2024 Hepatitis B virus surface Ag [Presence] in Serum or Plasma by Immunoassay Hepatitis B surface antigen Lab Routine Missed menses Ordered: 07/25/2023 [facility] Comment on above: Ordered: 07/25/2023 Hepatitis B virus surface Ag [Presence] in Serum or Plasma by Immunoassay Hepatitis B surface antigen Lab Routine Missed menses , unspecified gestational age Ordered: 06/24/2024 [facility] Comment on above: Ordered: 06/24/2024 Hepatitis C virus Ab [Presence] in Serum or Plasma by Immunoassay Hepatitis C antibody Lab Routine Missed menses Ordered: 07/25/2023 [facility] Comment on above: Ordered: 07/25/2023 Hepatitis C virus Ab [Presence] in Serum or Plasma by Immunoassay Hepatitis C antibody Lab Routine Missed menses , unspecified gestational age Ordered: 06/24/2024 [facility] Comment on above: Ordered: 06/24/2024 HIV-1/HIV-2 antigen/antibody combination immunoassay HIV-1 and HIV-2 antibodies Lab Routine Missed menses Ordered: 07/25/2023 [facility] Comment on above: Ordered: 07/25/2023 HIV-1/HIV-2 antigen/antibody combination immunoassay HIV-1 and HIV-2 antibodies Lab Routine Missed menses , unspecified gestational age Ordered: 06/24/2024 [facility] Comment on above: Ordered: 06/24/2024 Neisseria gonorrhoea e DNA [Presence] in Unspecified specimen by JACEK with probe detection Neisseria gonorrhea DNA probe, direct Lab Routine STD exposure Ordered: 07/27/2024 [facility] Comment on above: Ordered: 07/27/2024 Reagin Ab [Presence] in Serum by RPR RPR Lab Routine Missed menses Ordered: 07/25/2023 [facility] Comment on above: Ordered: 07/25/2023 Reagin Ab [Presence] in Serum by RPR RPR Lab Routine Missed menses , unspecified gestational age Ordered: 06/24/2024 [facility] Comment on above: Ordered: 06/24/2024 Rubella antibody, IgG Rubella an tibody, IgG Lab Routine Missed menses Ordered: 07/25/2023 [facility] Comment on above: Ordered: 07/25/2023 Rubella antibody, IgG Rubella an tibody, IgG Lab Routine Missed menses , unspecified gestational age Ordered: 06/24/2024 [facility] Comment on above: Ordered: 06/24/2024 SURESWAB(R) ADVANCED VAGINITIS PLUS, TMA SURESWAB(R) ADVANCED VAGINITIS PLUS, TMA Pathology and Cytology Routine STD exposure Ordered: 07/27/2024 [facility] Work Phone: Comment on above: Ordered: 07/27/2024 Payers Date Payer Category Payer Self-pay 2023 Medicaid [id number] 2022 Medicaid [id number] 2021 [facility] [id number] 2016 Unknown [id number] 2.1 [id number] 2004 Unknown [id number] 2.16.8 40.1.009231.3.579.2.1286 2004 Unknown [id number] 2.16.8 40.1.288352.3.579.2.1259 2004 Unknown [id number] 2.16.84 0.1.883242.3.579.2.1259 2004 Unknown [id number] 2.16.84 0.1.853136.3.579.2.9 2004 Unknown [id number] 2.16.84 0.1.307294.3.579.2.9 2004 Unknown [id number] 2.16.84 0.1.625100.3.579.2.9 2004 Unknown [id number] 2.16.84 0.1.990174.3.579.2.9 2004 Unknown [id number] 2.16.84 0.1.943156.3.579.2.9 2004 Unknown [id number] 2.16.84 0.1.933620.3.579.2.9 2004 Unknown [id number] 2.16.84 0.1.488857.3.579.2.1258 2004 Unknown [id number] 2.16.84 0.1.274536.3.579.2.9 2004 Unknown [id number] 2.16.84 0.1.128766.3.579.2.9 2004 Unknown [id number] 2.16.84 0.1.578795.3.579.2.1259 Unknown [facility] [id number] Unknown [id number] 2.16.8 40.1.796875.3.579.2.531 Social History Date Type Detail Facility Start: 06-24-2024 [facility] At [facility] Start: 05-13-2018 Tobacco smoking status OHIS Never smoked tobacco (finding) [facility] Start: 06-26-2024 Sex Female (finding) [facility] Clinical Notes 03-08-2021 to 12-13-2024 CARMELO Adam - 12/13/2024 3:00 PM CARMELO Marroquin - 11/03/2024 9:00 AM Cony Regan, MICKEY - 10/04/2024 3:00 PM Dave Crowell, MICKEY - 07/27/2024 2:20 PM EST Note [...] ASSESSMENT & PLAN ICD-10-CM 1. Third trimester ([facility]) Z34.93 POCT urinalysis dipstick manually resulted CULTURE, GROUP B STREP WITH SUSCEPTIBLITY CULTURE, GROUP B STREP WITH SUSCEPTIBLITY 2. 36 weeks gestation of ([facility]) Z3A.36 Documented by CARMELO Adam on behalf of: CARMELO Adam documented in this encounter [facility] 11-03-2024 History of Presen t illness [...] nursing note reviewed. Exam conducted with a remote broadcast technician present. Vitals: There is no height or [...] of: CARMELO Adam documented in this encounter [facility] 10-04-2024 History of Presen t illness Narrative [...] nursing note reviewed. Exam conducted with a remote broadcast technician present. Vitals: There is no height or [...] UTI symptoms. Macrobid will be sent to [facility] in [place]. Patient given orders to have CBC/1 hour gtt obtained prior to next scheduled appointment. Patient also given order to have growth scan done for possible SGA. Patient to return to clinic in 2-3 weeks. Documented by Swetha Regan LPN on behalf of: Dr. Willi Christiansen DO documented in this encounter [facility] 07-27-2024 History of Presen t illness [...] nursing note reviewed. Exam conducted with a remote broadcast technician present. Vitals: There is no height or [...] Willi Christiansen DO documented in this encounter [facility] 06-24-2024 History of Presen t illness [...] Roseanna Escamilla LPN documented in this encounter [facility] 05-18-2024 Note [id number] [facility] 05-17-2024 Note Patient Education Materials [facility]: [facility] 02-09-2024 History of Presen t illness Narrative [...] nursing note reviewed. Exam conducted with a remote broadcast technician present. Vitals: There is no height or [...] Willi Christiansen DO documented in this encounter [facility] 07-25-2023 History of Presen t illness Narrative Reason for Appointment: Patient ID: Shayla Martinez is a 17 y.o. female who presents for Initial Visit Patient presents today for a Nurse OB Intake appointment. Patient is 9w3d with a Estimated Date of Delivery: 02/24/24 OB History Para Term AB Living 1 SAB IAB Ectopic Multiple Live Births # Outcome Date GA Lbr Laonzo/2nd Weight Sex Delivery Anes PTL Lv 1 [...] or undercooked meat, and stay away from [facility]. Patient has also been advised to [...] Steel MA documented in this encounter [facility] 04-16-2022 Evaluation note Encounter Date Diagnosis [...] understanding and agrees to plan of care. [facility] Other 11-23-2021 Evaluation note* Encounter Date Diagnosis [...] stool studies. Apr, Nausea (ICD-10 - R11.0) [facility] Other 09-23-2021 Evaluation note* Encounter Date Diagnosis [...] verbalized understanding and agreement with treatment plan. [facility] Other Evaluation noteNo InformationNort Wir3s Other Evaluation note* Diagnosis Missed menses [facility] Diagnosis 37 weeks gestation of [facility]* Diagnosis Missed menses , unspecified gestational age Encounter for supervision of normal first in first trimester Nausea Nausea alone [facility] noteNo assessment information [facility]St[facility] Work Phone: Evaluation note* Diagnosis 16 weeks gestation of Second trimester state, incidental Screening, , for anatomic survey Encounter for anatomic survey STD exposure Yeast infection documented in this encounter [facility]* Diagnosis 26 weeks gestation of Second trimester state, incidental Diabetes mellitus screening Screening for diabetes mellitus UTI symptoms SGA (small for gestational age) Evdar-aqj-cjkqe without mention of malnutrition, unspecified (weight) documented in this encounter [facility]* Diagnosis 30 weeks gestation of Third trimester state, incidental SGA (small for gestational age) Oidyk-lfc-mrumc without mention of malnutrition, unspecified (weight) Antepartum anemia Constipation, unspecified constipation type [facility] Diagnosis Third trimester ([facility]) state, incidental 36 weeks gestation of ([facility]) documented [facility] this encounter [facility] Narrative - Reported* Type Description Date Medical History APNEA Surgical History tonsilectomy and adenoidectomy [facility] Other Summary Purpose Family History No Family History Records FoundNo Family History Records FoundNo Family History Records FoundNo Family History Records Found Advance Directives No Advanced Directives Records Found Advance Directive Response Recorded Date/ Time Advance Directives No November 08 0 5:24am Additional Source Comments REASON FOR VISIT (unrecogniz ed section and content) Reason Comments Initial Visit Reason Comments Routine Visit Reason Comments Amenorrhea INFORMATION SOURCE (unrecogn ized section and content) DATE CREATED AUTHOR 07/20/2023 [facility] DATE CREATED AUTHOR AUTHOR'S ORGANIZ ATION 05/18/2024 [facility] l DATE CREATED AUTHOR AUTHOR'S ORGANIZ ATION 06/30/2024 [facility] DATE CREATED AUTHOR AUTHOR'S ORGANIZ ATION 12/14/2024 [facility] EPIC Care Teams [...] BE BASED ON THE PRIMARY CLINICAL RECORDS. [employer] provides no warranty or guarantee of the accuracy or completeness of information in this document.
--- OUTSIDE RECORDS SUMMARY | 2024-12-17 04:08 | XMS_ITS | Encounter Summary ---
Author Organization [facility] Address [address] [place] [address] Care Team Providers Care Surface Water Technician Name Role Phone Unavailable Primary Care Provider Unavailabl e Encounter Details Date Type Department Care Team (Late st Contact Info) Description 01/26/2024 Abstract [facility] [address] [place] [address] [facility] [address] [place], [id number] Social History Tobacco Use Types Packs/Day Years [...] Description 12/21/2024 2:00 PM EDT Routine [facility] OB [address] [place] [address] [facility] [place], [id number] documented as of this encounter Visit Diagnoses Not on filedocumented in this encounter
--- OUTSIDE RECORDS SUMMARY | 2024-12-17 04:08 | XMS_ITS | Encounter Summary ---
Author Organization [facility] Address [address] [place] [address] Care Team Providers Care Rampman Name Role Phone Unavailable Primary Care Provider Unavailabl e Encounter Details Date Type Department Care Team (Late st Contact Info) Description 11/05/2023 Clinisync Result Encounter [facility] External Department Unsolicited Willi Christiansen, DO [facility] [address] [place], [place] [id number] Social History Tobacco Use Types Packs/Day Years [...] [facility] [address] [facility] [address] Willi Christiansen DO [address] [place] [address] documented as of this encounter Procedures Procedure Name Priority Date/Time Associated Diagnosis Comments US OB PLACENTA 11/05/2023 1:20 PM EDT documented in this encounter Results * US OB PLACENTA (11/05/2023 1:20 PM EDT) Anatomical Region Laterality Modality Other 11/05/2023 1:20 PM EDT Narrative 11/05/2023 1:23 PM EDT [address] [address] Ultrasound Report Signed Patient: SHAYLA MARTINEZ MR#: [id number] : 2005 Acct:[id number] Age/Sex: 17 / F ADM Date: 11/05/23 Loc: [facility] Attending Dr: Willi Christiansen D.O. Ordering Physician: Willi Christiansen D.O. Date of Service: 11/05/23 Procedure(s): US OB placenta Accession Number(s): [id number] cc: Willi Christiansen D.O.; Physician,Non-Staff Arin [address] [address] Patient Name: SHAYLA MARTINEZ MRN: [facility]:[id number] date: 2005 Sex: F Assigned Patient Location: [facility] Current Patient Location: [facility] Accession/Order Number: [id number] Exam Date: 11/05/2023 11:04 Report Date: 11/05/2023 [...] Signed By: 11/05/23 1323 DD/ 1320 TD/TT: Screw Down: Procedure Note Radiology, Radiologist, MD - 11/05/2023 The [place] [id number] Ultrasound Report Signed Patient: BRODIE MARTINEZ#: [id number] : 2005Acct:[id number] Age/Sex: 17 / FADM Date: 11/05/23 Loc: [facility] Attending Dr: Willi Christiansen D.O. Ordering Physician: Willi Christiansen D.O. Date of Service: 11/05/23 Procedure(s): US OB placenta Accession Number(s): [id number] cc: Willi Christiansen D.O.; Physician,Non-Staff Arin The [place] [address] Patient Name: SHAYLA MARTINEZ MRN: [facility]:[id number] date: 2005 Sex: F Assigned Patient Location: [facility] Current Patient Location: [facility] Accession/Order Number: [id number] Exam Date: 11/05/2023 11:04 Report Date: 11/05/2023 [...] Dictated By: Sadiq Villa M.D. Signed By:11/05/23 1325 DD/ 1320 TD/TT: Screw Down: us Willi Christiansen DO [facility] Final Result documented in this encounter Visit Diagnoses Not on filedocumented in this encounter
--- OUTSIDE RECORDS SUMMARY | 2024-12-17 04:08 | XMS_ITS | Encounter Summary ---
Author Organization [facility] Address [address] [place] [address] Care Team Providers Care Multiple Cut Off Saw Operator Name Role Phone Unavailable Primary Care Provider Unavailabl e Encounter Details Date Type Department Care Team (Late st Contact Info) Description 01/03/2024 Clinisync Result Encounter [facility] External Department Unsolicited Willi Christiansen, DO [address] [place] [address] Social History Tobacco Use Types Packs/Day Years [...] PM EDT Routine [facility] BCP OB [address] [place] [address] Willi Christiansen, DO [address] [place] [address] documented as of this encounter Procedures Procedure Name Priority Date/Time Associated Diagnosis Comments XR CHEST 2V 01/03/2024 11:22 AM EDT documented in this encounter Results * XR CHEST 2V (01/03/2024 11:22 AM EDT) Anatomical Region Laterality Modality Other 01/03/2024 11:2 2 AM EDT Narrative 01/03/2024 11:25 AM EDT [place] [address] XRay Report Signed Patient: SHAYLA MARTINEZ MR#: [id number] : 2005 Acct:[id number] Age/Sex: 18 / F ADM Date: Loc: [facility] [address]: Willi Christiansen D.O. Ordering Physician: Willi Christiansen D.O. Date of Service: 01/03/24 Procedure(s): XR chest 2V Accession Number(s): [id number] cc: Willi Christiansen D.O.; Physician,Non-Staff Arin [place] [id number] Patient Name: SHAYLA MARTINEZ MRN: [id number] date: 2005 Sex: F Assigned Patient Location: [facility] Current Patient Location: [facility] Accession/Order Number: [id number] Exam Date: 01/03/2024 10:37 Report Date: 01/03/2024 [...] Signed By: 01/03/24 1125 DD/ 1122 TD/TT: Associate Technician: Procedure Note Radiology, Radiologist, MD - 01/03/[address] [address] XRay Report Signed Patient: BETHANIE MARTINEZR#: [id number] : 2005Acct:[id number] Age/Sex: 18 / FADM Date: Loc: [facility] 251-[address]: Willi Christiansen D.O. Ordering Physician: Willi Christiansen D.O. Date of Service: 01/03/24 Procedure(s): XR chest 2V Accession Number(s): [id number] cc: Willi Christiansen D.O.; Physician,Non-Staff Arin [place] [id number] Patient Name: SHAYLA MARTINEZ MRN: [id number] date: 2005 Sex: F Assigned Patient Location: [facility] Current Patient Location: [facility] Accession/Order Number: [id number] Exam Date: 01/03/2024 10:37 Report Date: 01/03/2024 [...] M.D. Signed By:01/03/24 1125 DD/ 1122 TD/TT: Associate Technician: Willi Christiansen DO [facility] Final Result documented in this encounter Visit Diagnoses Not on filedocumented in this encounter
--- OUTSIDE RECORDS SUMMARY | 2024-12-17 04:08 | XMS_ITS | Patient Health Record ---
Author Organization [facility] Address [address] [facility] [place] [address] Care Team Providers Care Optical Design Engineer Name Role Phone Stefania Loving Primary Care Provider Reason For Referral No Information Problems No Known Problems Plan Of Treatment No Information Insurance Providers Payer Name Payer Address Payer Phone Subscriber Number Group Number Insured Name Patient Relationship to Insured Coverage Start Date Coverage End Date [employer]-t ermed [address] [place] [address] [id number] KALYN MARTINEZ Self - [facility] the [facility] [employer] [address] [place] [address] [id number] KALYN MARTINEZ Self - patient is the insured Medical (General) History Medical History History ICD Code LEVEL 1
--- OUTSIDE RECORDS SUMMARY | 2024-12-17 04:08 | XMS_ITS | Encounter Summary ---
Author Organization [facility] Address [address] [place] [address] Care Team Providers Care Tool And Cutter Grinder Name Role Phone Unavailable Primary Care Provider Unavailabl e Encounter Details Date Type Department Care Team (Late st Contact Info) Description 06/28/2024 Abstract [facility] OB [address] [place] [phone] Nelson Christiansen DO [facility] [address], [facility] Social History Tobacco Use Types Packs/Day [...] Routine [facility] BCP OB [address] [place] [address] Nelson Christiansen DO [facility] [address], [facility] documented as of this encounter Visit Diagnoses Not on filedocumented in this encounter
--- OUTSIDE RECORDS SUMMARY | 2024-12-17 04:08 | XMS_ITS | Encounter Summary ---
Author Organization [facility] Address [address] [place] [address] Care Team Providers Care Payroll Machine Operator Name Role Phone Unavailable Primary Care Provider Unavailabl e Encounter Details Date Type Department Care Team (Late st Contact Info) Description 12/08/2024 Clinisync Result Encounter [facility] External Department Unsolicited Willi Christiansen, DO [address] [place], [place] [phone] Social History Tobacco Use Types Packs/Day Years [...] Routine [facility] BCP OB [address] [place] [address] Willi Christiansen DO [address] [place], [place] [address] documented as of this encounter Procedures Procedure Name Priority Date/Time Associated Diagnosis Comments US OB BPP W NON-STRESS 12/08/2024 4:11 PM EDT documented in this encounter Results * US OB BPP W NON-STRESS (12/08/2024 4:11 PM EDT) Anatomical Region Laterality Modality Other 12/08/2024 4:11 PM EDT Narrative 12/08/2024 4:13 [place] [address] Ultrasound Report Signed Patient: SHAYLA MARTINEZ MR#: [id number] : 2005 Acct:[id number] Age/Sex: 19 / F ADM Date: 12/08/24 Loc: US Attending Dr: Willi Christiansen D.O. Ordering Physician: Willi Christiansen D.O. Date of Service: 12/08/24 Procedure(s): US OB BPP w non-stress Accession Number(s): [id number] cc: Willi Christiansen D.O.; Physician,Non-Staff [place] [id number] Patient Name: SHAYLA MARTINEZ MRN: [id number] date: 2005 Sex: F Assigned Patient Location: [facility] Current Patient Location: Accession/Order Number: [id number] Exam Date: 12/08/2024 16:10 Report Date: 12/08/2024 16:11 At the request of: WILLI CHRISTIANSEN DO Procedure: US OB BPP w non-stress Biophysical profile. Reason for exam: Smaller gestational age. COMPARISON: BPP 12/03/2024. TECHNIQUE: Transabdominal imaging of the gravid uterus was obtained. FINDINGS: Hand Laminator reports a BPP of 8 out of 8. RALEIGH is normal at 11.4 cm. heart rate 152 bpm. US/US OB BPP w non-stress IMPRESSION: BPP 8 out of 8. Impression dictated by: Roque Baker Jr., D.O. 12/08/2024 4:11 PM Dictation Location: [place] [address] Electronically authenticated by: [id number] Y Date: 12/08/2024 16:11 Dictated By: Roque Baker M.D. Signed By: 12/08/24 1613 DD/ 1611 TD/TT: Dough Braker: Procedure Note Radiology, Radiologist, MD - 12/08/2024 [place] [address] Ultrasound Report Signed Patient: BETHANIE MARTINEZR#: [id number] : 2005Acct:[id number] Age/Sex: 19 / FADM Date: 12/08/24 Loc: US Attending Dr: Willi Christiansen D.O. Ordering Physician: Willi Christiansen D.O. Date of Service: 12/08/24 Procedure(s): US OB BPP w non-stress Accession Number(s): [id number] cc: Willi Christiansen D.O.; Physician,Non-Staff Arin The [place] [address] Patient Name: SHAYLA MARTINEZ MRN: [facility]:[id number] date: 2005 Sex: F Assigned Patient Location: [facility] Current Patient Location: Accession/Order Number: [id number] Exam Date: 12/08/2024 16:10 Report Date: 12/08/2024 16:11 At the request of: WILLI CHRISTIANSEN DO Procedure: US OB BPP w non-stress Biophysical profile. Reason for exam: Smaller gestational age. COMPARISON: BPP 12/03/2024. TECHNIQUE: Transabdominal imaging of the gravid uterus was obtained. FINDINGS: Hand Laminator reports a BPP of 8 out of 8. RALEIGH is normal at 11.4cm. heart rate 152 bpm. US/US OB BPP w non-stress IMPRESSION: BPP 8 out of 8. Impression dictated by: Roque Baker Jr., D.O. 12/08/2024 4:11 PM Dictation Location: [place] [address] Electronically authenticated by: [id number] Y Date: 6:11 Dictated By: Roque Baker M.D. Signed By:12/08/24 1613 DD/ 1611 TD/TT: Dough Braker: us Willi Christiansen DO [facility] Final Result documented in this encounter Visit Diagnoses Not on filedocumented in this encounter
--- OUTSIDE RECORDS SUMMARY | 2024-12-17 04:08 | XMS_ITS | Encounter Summary ---
Author Organization [facility] Address [address] [place] [place] [address] Care Team Providers Care Drupal Architect Name Role Phone Unavailable Primary Care Provider Unavailabl e Encounter Details Date Type Department Care Team (Late st Contact Info) Description 11/05/2023 Clinisync Result Encounter [facility] External Department Unsolicited Willi Christiansen, DO [address] [place], [place] [id number] Social History Tobacco Use Types Packs/Day Years [...] Routine [facility] BCP OB [address] [place] [address] Willi Christiansen, DO [address] [place] [address] [phone] (work) documented as of this encounter Procedures Procedure Name Priority Date/Time Associated Diagnosis Comments US OB CERVICAL LENGTH 11/05/2023 1:20 PM EDT documented in this encounter Results * US OB CERVICAL LENGTH (11/05/2023 1:20 PM EDT) Anatomical Region Laterality Modality Other 11/05/2023 1:20 PM EDT Narrative 11/05/2023 1:23 PM EDT [place] [id number] Ultrasound Report Signed Patient: SHAYLA MARTINEZ MR#: [id number] : 2005 Acct:[id number] Age/Sex: 17 / F ADM Date: 11/05/23 Loc: [facility] Attending Dr: Willi Christiansen D.O. Ordering Physician: Willi Christiansen D.O. Date of Service: 11/05/23 Procedure(s): US OB cervical length Accession Number(s): [id number] cc: Willi Christiansen D.O.; Physician,Non-Staff M.Jorden [address] [address] Patient Name: SHAYLA MARTINEZ MRN: [facility]:[id number] date: 2005 Sex: F Assigned Patient Location: [facility] Current Patient Location: [facility] Accession/Order Number: [id number] Exam Date: 11/05/2023 11:05 Report Date: 11/05/2023 [...] Signed By: 11/05/23 1323 DD/ 1320 TD/TT: Cost Accounting Clerk: Procedure Note Radiology, Radiologist, MD - 11/05/2023 [place] [address] Ultrasound Report Signed Patient: BRODIE MARTINEZ#: [id number] : 2005Acct:[id number] Age/Sex: 17 / FADM Date: 11/05/23 Loc: [facility] Attending Dr: Willi Christiansen D.O. Ordering Physician: Willi Christiansen D.O. Date of Service: 11/05/23 Procedure(s): US OB cervical length Accession Number(s): [id number] cc: Willi Christiansen D.O.; Physician,Non-Staff Arin The [place] [address] Patient Name: SHAYLA MARTINEZ MRN: [facility]:[id number] date: 2005 Sex: F Assigned Patient Location: [facility] Current Patient Location: [facility] Accession/Order Number: [id number] Exam Date: 11/05/2023 11:05 Report Date: 11/05/2023 [...] M.D. Signed By:11/05/23 1323 DD/ 1320 TD/TT: Cost Accounting Clerk: us Willi Christiansen DO [facility] Final Result documented in this encounter Visit Diagnoses Not on filedocumented in this encounter
--- OUTSIDE RECORDS SUMMARY | 2024-12-17 04:08 | XMS_ITS | Encounter Summary ---
Author Organization [facility] Address [address] [place] [address] Care Team Providers Care Right Of Way Worker Name Role Phone Unavailable Primary Care Provider Unavailabl e Encounter Details Date Type Department Care Team (Late st Contact Info) Description 12/13/2024 Bamboo flowsheet [facility] OB [address] [place] [address] Kristina Echavarria PA [address] [place], [facility]11 Social History Tobacco Use Types [...] Description 12/21/2024 2:00 PM EDT Routine [facility] OB [address] [address] Nelson Christiansen DO [address] [place], [facility]11 documented as of this encounter Visit Diagnoses Not on filedocumented in this encounter
--- OUTSIDE RECORDS SUMMARY | 2024-12-17 04:08 | XMS_ITS | Encounter Summary ---
Author Organization [facility] Address [address] [place] [address] Care Team Providers Care Ehs Manager Name Role Phone Unavailable Primary Care Provider Unavailabl e Encounter Details Date Type Department Care Team (Late st Contact Info) Description 12/03/2024 Clinisync Result Encounter [facility] External Department Unsolicited Willi Christiansen, DO [address] [place], [place] [phone] Social History Tobacco Use Types Packs/Day Years [...] Routine [facility] BCP OB [address] [place] [address] Willi Christiansen, [address] [place], [place] [phone] documented as of this encounter Procedures Procedure Name Priority Date/Time Associated Diagnosis Comments US OB BPP W NON-STRESS 12/03/2024 4:05 PM EDT documented in this encounter Results * US OB BPP W NON-STRESS (12/03/2024 4:05 PM EDT) Anatomical Region Laterality Modality Other 12/03/2024 4:05 PM EDT Narrative 12/03/2024 4:07 [place] [address] Ultrasound Report Signed Patient: SHAYLA MARTINEZ MR#: [id number] : 2005 Acct:[id number] Age/Sex: 18 / F ADM Date: 12/03/24 Loc: [facility] Attending Dr: Willi Christiansen D.O. Ordering Physician: Willi Christiansen D.O. Date of Service: 12/03/24 Procedure(s): US OB BPP w non-stress Accession Number(s): [id number] cc: Willi Christiansen D.O.; Physician,Non-Staff Arin [place] [id number] Patient Name: SHAYLA MARTINEZ MRN: [facility]:[id number] date: 2005 Sex: F Assigned Patient Location: [facility] Current Patient Location: Accession/Order Number: [id number] Exam Date: 12/03/2024 16:04 Report Date: 12/03/2024 [...] Ladd M.D. 12/03/2024 4:05 PM Dictation Location: [place] [address] Electronically authenticated by: [id number] Y Date: 12/03/2024 16:05 Dictated By: Froy Ladd D.O. Signed By: 12/03/24 1607 DD/ 04 TD/TT: Doping Supervisor: Procedure Note Radiology, Radiologist, - 12/03/2024 The [place] [id number] Ultrasound Report Signed Patient: BRODIE MARTINEZ#: [id number] : 2005Acct:[id number] Age/Sex: 18 / FADM Date: 12/03/24 Loc: [facility] Attending Dr: Willi Christiansen D.O. Ordering Physician: Willi Christiansen D.O. Date of Service: 12/03/24 Procedure(s): US OB BPP w non-stress Accession Number(s): [id number] cc: Willi Christiansen D.O.; Physician,Non-Staff Arin The [place] [id number] Patient Name: SHAYLA MARTINEZ MRN: [facility][id number] date: 2005 Sex: F Assigned Patient Location: [facility] Current Patient Location: Accession/Order Number: [id number] Exam Date: 12/03/2024 16:04 Report Date: 12/03/2024 [...] Ladd M.D. 12/03/2024 4:05 PM Dictation Location: [place] [address] Electronically authenticated by: [id number] Y Date: 6:05 Dictated By: Froy Ladd D.O. Signed By:12/03/241606 DD/ 04 TD/TT: Doping Supervisor: us Willi Елена DO [facility] Final Result documented in this encounter Visit Diagnoses Not on filedocumented in this encounter
--- OUTSIDE RECORDS SUMMARY | 2024-12-17 04:08 | XMS_ITS | Encounter Summary ---
Author Organization [facility] Address [address] [place] [address] Care Team Providers Care Material Assistant Name Role Phone Unavailable Primary Care Provider Unavailabl e Encounter Details Date Type Department Care Team (Late st Contact Info) Description 06/24/2024 Abstract [facility] OB [address] [place] [address] Nelson Christiansen DO [facility] [address] [place], [facility]11 Social History Tobacco Use Types Packs/Day [...] [facility] BCP OB [address] [place] [address] Nelson Christiansen DO [facility] [address] [place], [facility]11 documented as of this encounter Visit Diagnoses Not on filedocumented in this encounter
--- OUTSIDE RECORDS SUMMARY | 2024-12-17 04:08 | XMS_ITS | Encounter Summary ---
Author Organization [facility] Address [address] [place] [address] Care Team Providers Care Slasher Hand Name Role Phone Unavailable Primary Care Provider Unavailabl e Encounter Details Date Type Department Care Team (Late st Contact Info) Description 10/21/2023 Clinisync Result Encounter [facility] External Department Unsolicited Willi Christiansen, DO [address] [place], [place] [phone] Social History Tobacco Use Types Packs/Day Years [...] PM EDT Routine [facility]CP OB [address] [facility] [place] [place] [address] Willi Christiansen, DO [address] [place] [address] documented as of this encounter Procedures Procedure Name Priority Date/Time Associated Diagnosis Comments US OB CERVICAL LENGTH 10/21/2023 8:27 AM EDT documented in this encounter Results * US OB CERVICAL LENGTH (10/21/2023 8:27 AM EDT) Anatomical Region Laterality Modality Other 10/21/2023 8:27 AM EDT Narrative 10/21/2023 8:30 AM EDT [address] [address] Ultrasound Report Signed Patient: SHAYLA MARTINEZ MR#: [id number] : 2005 Acct:[id number] Age/Sex: 17 / F ADM Date: 10/20/23 Loc: US Attending Dr: Willi Christiansen D.O. Ordering Physician: Willi Christiansen D.O. Date of Service: 10/20/23 Procedure(s): US OB cervical length Accession Number(s): [id number] cc: Willi Christiansen D.O.; Physician,Non-Staff Arin [address] [address] Patient Name: SHAYLA MARTINEZ MRN: [facility]:[id number] date: 2005 Sex: F Assigned Patient Location: US Current Patient Location: Accession/Order Number: [id number] Exam Date: 10/20/2023 15:00 Report Date: 10/21/2023 [...] M.D. Signed By: 10/21/23829 DD/ 6 TD/TT: Radio Time Salesperson: Procedure Note Radiology, Radiologist, MD - 10/21/2023 [place] [address] Ultrasound Report Signed Patient: BRODIE MARTINEZ#: [id number] : 2005Acct:[id number] Age/Sex: 17 / FADM Date: 10/20/23 Loc: US Attending Dr: Willi Christiansen D.O. Ordering Physician: Willi Christiansen D.O. Date of Service: 10/20/23 Procedure(s): US OB cervical length Accession Number(s): [id number] cc: Willi Christiansen D.O.; Physician,Non-Staff Arin The [address] [address] Patient Name: SHAYLA MARTINEZ MRN: [id number] date: 2005 Sex: F Assigned Patient Location: US Current Patient Location: Accession/Order Number: [id number] Exam Date: 10/20/2023 15:00 Report Date: 10/21/2023 [...] Solano M.D. Signed By:10/21/23829 DD/ 6 TD/TT: Radio Time Salesperson: us Willi Christiansen DO [facility] Final Result documented in this encounter Visit Diagnoses Not on filedocumented in this encounter
--- OUTSIDE RECORDS SUMMARY | 2024-12-17 04:08 | XMS_ITS | Encounter Summary ---
Author Organization [facility] Address [address] [place] [address] Care Team Providers Care Architecture Intern Name Role Phone Unavailable Primary Care Provider Unavailabl e Encounter Details Date Type Department Care Team (Late st Contact Info) Description 01/09/2024 Abstract [facility] OB [address] [place] [phone] Mini Thorne LPN [address] [place] [phone] Social History Tobacco Use Types Packs/Day Years [...] Description 12/21/2024 2:00 PM EDT Routine [facility] OB [address] [place] [phone] Nelson Christiansen DO [address] [facility] [address] [place]la [place], [id number] documented as of this encounter Visit Diagnoses Not on filedocumented in this encounter
--- OUTSIDE RECORDS SUMMARY | 2024-12-17 04:08 | XMS_ITS | Encounter Summary ---
Author Organization [facility] Address [address] [place] [address] Care Team Providers Care Screedman Name Role Phone Unavailable Primary Care Provider Unavailabl e Encounter Details Date Type Department Care Team (Late st Contact Info) Description 07/25/2023 Clinisync Result Encounter [facility] External Department Unsolicited Willi Christiansen, DO [facility] [address] [place], [place] [phone] Social History Tobacco Use Types Packs/Day Years [...] PM EDT Routine [facility] BCP OB [address] [place] [address] Willi Christiansen, DO [address] [place] [address] documented as of this encounter Procedures Procedure Name Priority Date/Time Associated Diagnosis Comments US OB TRANSVAGINAL 07/25/2023 10 :11 AM EST documented in this encounter Results * US OB TRANSVAGINAL (07/25/2023 10:11 AM EST) Anatomical Region Laterality Modality Other 07/25/2023 10:1 1 AM EST Narrative 07/25/2023 10:13 AM EST [address] [address] Ultrasound Report Signed Patient: SHAYLA MARTINEZ MR#: [id number] : 2005 Acct:[id number] Age/Sex: 17 / F ADM Date: 07/25/23 Loc: [facility] Attending Dr: Willi Christiansen D.O. Ordering Physician: Willi Christiansen D.O. Date of Service: 07/25/23 Procedure(s): US OB transvaginal Accession Number(s): [id number] cc: Willi Christiansen D.O.; Physician,Non-Staff Arin [address] [address] Patient Name: SHAYLA MARTINEZ MRN: [id number] date: 2005 Sex: F Assigned Patient Location: [facility] Current Patient Location: [facility] Accession/Order Number: [id number] Exam Date: 07/25/2023 09:33 Report Date: 07/25/2023 [...] Signed By: 07/25/23 1013 DD/ 1011 TD/TT: Medical Administrative: Procedure Note Radiology, Radiologist, MD - 07/25/2023 [place] [address] Ultrasound Report Signed Patient: BRODIE MARTINEZ#: [id number] : 2005Acct:[id number] Age/Sex: 17 / FADM Date: 07/25/23 Loc: [facility] Attending Dr: Willi Christiansen D.O. Ordering Physician: Willi Christiansen D.O. Date of Service: 07/25/23 Procedure(s): US OB transvaginal Accession Number(s): [id number] cc: Willi Christiansen D.O.; Physician,Non-Staff Arin The [place] [address] Patient Name: SHAYLA MARTINEZ MRN: [id number] date: 2005 Sex: F Assigned Patient [facility]: [facility] Current Patient Location: [facility] Accession/Order Number: [id number] Exam Date: 07/25/2023 09:33 Report Date: 07/25/2023 [...] M.D. Signed By:07/25/23 1013 DD/ 1011 TD/TT: Medical Administrative: us Willi Елена DO [facility] Final Result documented in this encounter Visit Diagnoses Not on filedocumented in this encounter
--- OUTSIDE RECORDS SUMMARY | 2024-12-17 04:08 | XMS_ITS | Encounter Summary ---
Author Organization [facility] Address [address] [place] [address] Care Team Providers Care Political Aide Name Role Phone Unavailable Primary Care Provider Unavailabl e Encounter Details Date Type Department Care Team (Late st Contact Info) Description 01/23/2024 Abstract [facility] [address] [place] [phone] Nelson Christiansen [facility] [address] [place], [facility]11 Social History Tobacco Use Types Packs/Day Years [...] Description 12/21/2024 2:00 PM EDT Routine [facility] OB [address] [place] [address] Nelson Christiansen [facility] [address] [place], [facility]11 documented as of this encounter Visit Diagnoses Not on filedocumented in this encounter
--- OUTSIDE RECORDS SUMMARY | 2024-12-17 04:08 | XMS_ITS | Encounter Summary ---
Author Organization [facility] Address [address] [place] [address] Care Team Providers Care Car Head Liner Installer Name Role Phone Unavailable Primary Care Provider Unavailabl e Encounter Details Date Type Department Care Team (Late st Contact Info) Description 01/03/2024 Clinisync Result Encounter [facility] External Department Unsolicited Willi Christiansen, DO [address], [place] [phone] Social History Tobacco Use Types Packs/Day Years [...] PM EDT Routine [facility] BCP OB [address] [facility] [place] [address] Willi Christiansen DO [address] [place] [address] documented as of this encounter Procedures Procedure Name Priority Date/Time Associated Diagnosis Comments US OB PLACENTA 01/03/2024 8:37 AM EDT documented in this encounter Results * US OB PLACENTA (01/03/2024 8:37 AM EDT) Anatomical Region Laterality Modality Other 01/03/2024 8:37 AM EDT Narrative 01/03/2024 8:40 AM EDT [address] [address] Ultrasound Report Signed Patient: SHAYLA MARTINEZ MR#: [id number] : 2005 Acct:[id number] Age/Sex: 18 / F ADM Date: Loc: [facility] [address]: Willi Christiansen D.O. Ordering Physician: Willi Christiansen D.O. Date of Service: 01/03/24 Procedure(s): US OB placenta Accession Number(s): [id number] cc: Willi Christiansen D.O.; Physician,Non-Staff Arin The [address] [address] Patient Name: SHAYLA MARTINEZ MRN: [facility]:[id number] date: 2005 Sex: F Assigned Patient Location: [facility] Current Patient Location: [facility] Accession/Order Number: [id number] Exam Date: 01/03/2024 07:11 Report Date: 01/03/2024 [...] MARITZA HDEZ Date: 01/03/2024 08:37 Dictated By: Mairtza Hdez M.D. Signed By: 01/03/24 0840 DD/ TD/TT: Bilingual Instructor: Procedure Note Radiology, Radiologist, MD - 01/03/[address] [address] Ultrasound Report Signed Patient: BETHANIE MARTINEZR#: [id number] : 2005Acct:[id number] Age/Sex: 18 / FADM Date: Loc: [facility] [address]: Willi Christiansen D.O. Ordering Physician: Willi Christiansen D.O. Date of Service: 01/03/24 Procedure(s): US OB placenta Accession Number(s): [id number] cc: Willi Christiansen D.O.; Physician,Non-Staff Arin [place] [phone] Patient Name: SHAYLA MARTINEZ MRN: [id number] date: 2005 Sex: F Assigned Patient Location: [facility] Current Patient Location: [facility] Accession/Order Number: [id number] Exam Date: 01/03/2024 07:11 Report Date: 01/03/2024 [...] M.D. Signed By:01/03/24 0840 DD/ 0837 TD/TT: Bilingual Instructor: us Willi Christiansen DO [facility] Final Result documented in this encounter Visit Diagnoses Not on filedocumented in this encounter
--- OUTSIDE RECORDS SUMMARY | 2024-12-17 04:08 | XMS_ITS | Clinical Summary ---
Author Organization [facility] Address [address] [place] [address] Care Team Providers Care Manager Retail Name Role Phone Unavailable Primary Care Provider Unavailabl e Allergies No known active allergies Medications MV-Min-Fe Fum-FA-DHA ( 1 PO) Take 1 each by mouth Daily Active metroNIDAZOLE (Flagyl) 500 MG tabletIndications:T hird trimester ([facility]),36 weeks gestation of ([facility]) Take 1 tablet (500 mg) by mouth in the morning and 1 tablet (500 mg) before bedtime. Do all this for 7 days. 14 tablet 5 12/21/19 25 Active iron polysaccharides (ProFe) 391.3 (180 Fe) MG capsuleIndications: 30 weeks gestation of ([facility]),Third trimester ([facility]) Take 1 capsule (391.3 mg) by mouth Daily 30 capsule 6 5 12/04/19 25 Encounters Date Type Department Care Team Description 12/13/2024 3:00 PM EDT Routine [facility] [address] [place] [phone] Kristina Echavarria PA Third trimester ([facility]); 36 weeks gestation of ([facility]) 12/13/2024 Bamboo flowsheet [facility] OB [address] [place] [address] [place] [address] Kristina Echavarria PA 12/08/2024 Clinisync Result Encounter [facility] External Department Unsolicited Willi Christiansen, 12/03/2024 Clinisync Result Encounter [facility]OM[facility] External Department Unsolicited Елена, Willi, DO 11/29/2024 Abstract [facility] [address] [place] [phone] Елена, Willi, DO 11/17/2024 Clinisync Result Encounter [facility] External Department Unsolicited Елена, Willi, DO 11/17/2024 Clinisync Result Encounter [facility] External Department Unsolicited Елена, Willi, DO 11/11/[address] [facility] [address] [place] [address] Beatriz Jolly MA 11/05/2024 Clinisync Result Encounter [facility] External Department Unsolicited Елена, Willi, DO 11/05/2024 Clinisync Result Encounter [facility] External Department Unsolicited Елена, Willi, DO 11/05/2024 Clinisync Result Encounter [facility] External Department Unsolicited Елена, Willi, DO 11/05/2024 Clinisync Result Encounter [facility] External Department Unsolicited Елена, Willi, DO 11/05/2024 Abstract [facility] [address] [place] [address] Елена, Willi, DO 11/04/2024 Results Follow-Up [facility] [address] [place] [address] Mini Thorne LPN 11/03/2024 9:00 AM EDT Routine [facility] [address] [place] [address] Kristina Echavarria PA 30 weeks gestation of ([facility]); Third trimester ([facility]); SGA (small for gestational age) ([facility]); Antepartum anemia ([facility]); Constipation, unspecified constipation type 11/03/2024 Clinisync Result Encounter [facility] External Department Unsolicited Елена, Willi, DO 11/03/2024 Bamboo flowsheet [facility] [address] [place] [phone] Kristina Echavarria PA 10/28/[address] [facility] [address] [place] [address] Tabitha Garduno MA 10/07/2024 Results Follow-Up [facility] [address] [place] [address] Mini Thorne LPN 10/06/20[address] [facility] [address] [place] [address] Mini Thorne LPN 10/04/2024 3:00 PM EDT Routine [facility] [address] [place] [address] Kristina Echavarria PA 26 weeks gestation of ([facility]); Second trimester ([facility]); Diabetes mellitus screening; UTI symptoms; SGA (small for gestational age) ([facility]) 10/04/2024 Bamboo flowsheet [facility] [address] [place] [address] Kristina Echavarria PA from Last 3 [...] PM EDT Routine [facility] [address] [facility] [place] [phone] Willi Christiansen, DO [address] [facility] [place] [address] Health Maintenance Due Date Last Done Comments Influenza Vaccine (#1) 2025 Procedures Procedure Name Priority Date/Time Associated Diagnosis Comments POCT URINALYSIS DIPSTICK Routine 12/13/2024 3:13 PM EDT Third trimester ([facility]) US OB BPP W NON-STRESS 12/08/2024 4:11 PM EDT US OB BPP W NON-STRESS 12/03/2024 4:05 PM EDT US OB GROWTH 11/17/2024 3:06 PM EDT US OB BPP W NON-STRESS 11/17/2024 2:58 PM EDT US OB PLACENTA 11/05/2024 2:54 PM EDT US OB CERVICAL LENGTH 11/05/2024 2:54 PM EDT US OB BPP W NON-STRESS 11/05/2024 2:54 PM EDT [facility] URINE MICROSCOPIC ONLY Routine 11/05/2024 12:15 PM EDT [facility] UA (CLEAN/CATCH) ADVANCED SOLUTIONS ARCHITECT/MICRO IF IND. Routine 11/05/2024 12:15 PM EDT US OB GROWTH 11/03/2024 5:05 PM EDT TRANSFERRIN Routine 11/03/2024 4:53 PM EDT MLR HEMOGLOBIN A1C Routine 11/03/2024 4: 53 PM EDT [facility] FERRITIN Routine 11/03/2024 4:53 PM EDT ALL CBC WITH AUTO DIFF Routine 11/03/2024 4:53 PM EDT POCT URINALYSIS DIPSTICK Routine 11/03/2024 9:32 AM EDT 30 weeks gestation of ([facility]) Third trimester ([facility]) URINARY TRACT INFECTION (HTRX) Routine 10/04/2024 4:19 PM EDT POCT URINALYSIS DIPSTICK Routine 10/04/2024 3:29 PM EDT 26 weeks gestation of ([facility]) Second trimester ([facility]) from Last 3 Months Results * (ABNORMAL) POCT urinalysis dipstick manually resulted (12/13/2024 3:13 PM EDT) Only the most recent of3 resultswithin the time period is included. Color, UA Yellow Clarity, UA Clear Glucose, UA Negative Negative - 1999(110) ++++ mg/dL Bilirubin, UA Negative Negative - 4(70) +++ mg/dL Ketones, UA Positive Negative - 160(16) ++++ mg/dL Comment:Trace Spec Grav, UA 1.025 1 - 1.03 Blood, UA Negative Negative - 50 Onur/mcL pH, UA 7.0 5 - 9 Protein, UA Positive Negative - 1999(20) ++++ mg/dL Comment:30mg/dL Urobilinogen, UA 0.2 0.2 - 12 mg/dL Leukocytes, UA Positive Negative - 500+++ Todd/mcL Comment:small Nitrite, UA Negative Negative - Positive Urine 12/13/2024 3:13 PM EDT us Kristina RHODES POINT OF CARE TEST ENTER/EDIT OR DERABLES Final Result * US OB BPP W NON-STRESS (12/08/2024 4:11 PM EDT) Only the most recent of4 resultswithin the time period is included. Anatomical Region Laterality Modality Other 12/08/2024 4:11 PM EDT Narrative 12/08/2024 4:13 PM EDT [address] [address] Ultrasound Report Signed Patient: SHAYLA MARTINEZ MR#: [id number] : 2005 Acct:[id number] Age/Sex: 19 / F ADM Date: 12/08/24 Loc: US Attending Dr: Willi Christiansen D.O. Ordering Physician: Willi Christiansen D.O. Date of Service: 12/08/24 Procedure(s): US OB BPP w non-stress Accession Number(s): [id number] cc: Willi Christiansen D.O.; Physician,Non-Staff Arin The [address] [phone] Patient Name: SHAYLA MARTINEZ MRN: [id number] date: 2005 Sex: F Assigned Patient Location: [facility] Current Patient Location: Accession/Order Number: [id number] Exam Date: 12/08/2024 16:10 Report Date: 12/08/2024 16:11 At the request of: WILLI CHRISTIANSEN DO Procedure: US OB BPP w non-stress Biophysical profile. Reason for exam: Smaller gestational age. COMPARISON: BPP 12/03/2024. TECHNIQUE: Transabdominal imaging of the gravid uterus was obtained. FINDINGS: Extruding Department Supervisor reports a BPP of 8 out of 8. RALE[place] is normal at 11.4 cm. heart rate 152 bpm. US/US OB BPP w non-stress IMPRESSION: BPP 8 out of 8. Impression dictated by: Roque Baker Jr., D.O. 12/08/2024 4:11 PM Dictation Location: [place] [address] Electronically authenticated by: [id number] Y Date: 12/08/2024 16:11 Dictated By: Roque Baker M.D. Signed By: 06/1612 DD/ 10 TD/TT: Record Clerk: Procedure Note Radiology, Radiologist, MD - 12/08/2024 [place] [address] Ultrasound Report Signed Patient: BRODIE MARTINEZ#: [id number] : 2005Acct:[id number] Age/Sex: 19 / FADM Date: 12/08/24 Loc: US Attending Dr: Willi Christiansen D.O. Ordering Physician: Willi Christiansen D.O. Date of Service: 12/08/24 Procedure(s): US OB BPP w non-stress Accession Number(s): [id number] cc: Willi Christiansen D.O.; Physician,Non-Staff Arin The [place] [address] Patient Name: SHAYLA MARTINEZ MRN: [facility]:[id number] date: 2005 Sex: F Assigned Patient Location: [facility] Current Patient Location: Accession/Order Number: [id number] Exam Date: 12/08/2024 16:10 Report Date: 12/08/2024 16:11 At the request of: WILLI CHRISTIANSEN DO Procedure: US OB BPP w non-stress Biophysical profile. Reason for exam: Smaller gestational age. COMPARISON: BPP 12/03/2024. TECHNIQUE: Transabdominal imaging of the gravid uterus was obtained. FINDINGS: Extruding Department Supervisor reports a BPP of 8 out of 8. RALE[place] is normal at 11.4cm. heart rate 152 bpm. US/US OB BPP w non-stress IMPRESSION: BPP 8 out of 8. Impression dictated by: Roque Baker Jr., D.O. 12/08/2024 4:11 PM Dictation Location: [place] [address] Electronically authenticated by: [id number] Y Date: 6:11 Dictated By: Roque Baker M.D. Signed By:12/08/241612 DD/ 1611 TD/TT: Record Clerk: us Willi Christiansen DO [facility] Final Result * US OB GROWTH (11/17/2024 3:06 PM EDT) Only the most recent of2 resultswithin the time period is included. Anatomical Region Laterality Modality Other 11/17/2024 3:06 PM EDT Narrative 11/17/2024 3:08 [place] [address] Ultrasound Report Signed Patient: SHAYLA MARTINEZ MR#: [id number] : 2005 Acct:[id number] Age/Sex: 18 / F ADM Date: 11/17/24 Loc: US Attending Dr: Willi Christiansen D.O. Ordering Physician: Willi Christiansen D.O. Date of Service: 11/17/24 Procedure(s): US OB growth Accession Number(s): [id number] cc: Willi Christiansen D.O.; Physician,Non-Staff M.DElliott [address] [address] Patient Name: SHAYLA MARTINEZ MRN: [facility]:[id number] date: 2005 Sex: F Assigned Patient Location: [facility] Current Patient Location: Accession/Order Number: [id number] Exam Date: 11/17/2024 15:03 Report Date: 11/17/2024 [...] Ladd M.D. 11/17/2024 3:06 PM Dictation Location: [place] [address] Electronically authenticated by: [id number] Y Date: 11/17/2024 15:06 Dictated By: Froy Ladd D.O. Signed By: 11/17/24 1508 DD/ 1506 TD/TT: Record Clerk: Procedure Note Radiology, Radiologist, MD - 11/17/2024 [place] [address] Ultrasound Report Signed Patient: BRODIE MARTINEZ#: [id number] : 2005Acct:[id number] Age/Sex: 18 / FADM Date: 11/17/24 Loc: US Attending Dr: Willi Christiansen D.O. Ordering Physician: Willi Christiansen D.O. Date of Service: 11/17/24 Procedure(s): US OB growth Accession Number(s): [id number] cc: Willi Christiansen D.O.; Physician,Non-Staff Arin The [place] [address] Patient Name: SHAYLA MARTINEZ MRN: [facility]:[id number] date: 2005 Sex: F Assigned Patient Location: [facility] Current Patient Location: Accession/Order Number: [id number] Exam Date: 11/17/2024 15:03 Report Date: 11/17/2024 [...] Ladd M.D. 11/17/2024 3:06 PM Dictation Location: [place] [address] Electronically authenticated by: [id number] Y Date: 5:06 Dictated By: Froy Ladd D.O. Signed By:11/17/24 1508 DD/ 1506 TD/TT: Record Clerk: us Willi Christiansen DO [facility] Final Result * US OB PLACENTA (11/05/2024 2:54 PM EDT) Anatomical Region Laterality Modality Other 11/05/2024 2:54 PM EDT Narrative 11/05/2024 2:57 [place] [address] Ultrasound Report Signed Patient: SHAYLA MARTINEZ MR#: [id number] : 2005 Acct:[id number] Age/Sex: 18 / F ADM Date: Loc: [facility] 253-[address]: Willi Christiansen D.O. Ordering Physician: Willi Christiansen D.O. Date of Service: 11/05/24 Procedure(s): US OB placenta Accession Number(s): [id number] cc: Willi Christiansen D.O.; Physician,Non-Staff Arin The [place] [id number] Patient Name: SHAYLA MARTINEZ MRN: [facility]:[id number] date: 2005 Sex: F Assigned Patient Location: [facility] Current Patient Location: [facility] Accession/Order Number: [id number] Exam Date: 11/05/2024 14:48 Report Date: 11/05/2024 [...] Ashley M.D. 11/05/2024 2:54 PM Dictation Location: [place] [address] Electronically authenticated by: [id number] Y Date: 11/05/2024 14:54 Dictated By: Thomas Ashley M.D. Signed By: 11/05/24 1457 DD/ 1454 TD/TT: Record Clerk: Procedure Note Radiology, Radiologist, - 11/05/2024 [place] [address] Ultrasound Report Signed Patient: FRAN MARTINEZRachael#: [id number] : 2005Acct:[id number] Age/Sex: FADM Date: Loc: [facility] 253-[address]: Willi Christiansen D.O. Ordering Physician: Willi Christiansen D.O. Date of Service: 11/05/24 Procedure(s): US OB placenta Accession Number(s): [id number] cc: Willi Christiansen D.O.; Physician,Non-Staff Arin The [address] [address] Patient Name: SHAYLA MARTINEZ MRN: [id number] date: 2005 Sex: F Assigned Patient Location: [facility] Current Patient Location: [facility] Accession/Order Number: [id number] Exam Date: 11/05/2024 14:48 Report Date: 11/05/2024 [...] Ashley M.D. 11/05/2024 2:54 PM Dictation Location: [place] [address] Electronically authenticated by: [id number] Y Date: 4:54 Dictated By: Thomas Ashley M.D. Signed By:11/05/24 1457 DD/ 1454 TD/TT: Record Clerk: us Willi Christiansen DO [facility] Final Result * US OB CERVICAL LENGTH (11/05/2024 2:54 PM EDT) Anatomical Region Laterality Modality Other 11/05/2024 2:54 PM EDT Narrative 11/05/2024 2:57 [place] [address] Ultrasound Report Signed Patient: SHAYLA MARTINEZ MR#: [id number] : 2005 Acct:[id number] Age/Sex: 18 / F ADM Date: Loc: [facility] 253-[address]: Willi Christiansen D.O. Ordering Physician: Willi Christiansen D.O. Date of Service: 11/05/24 Procedure(s): US OB cervical length Accession Number(s): [id number] cc: Willi Christiansen D.O.; Physician,Non-Staff M.[place] [id number] Patient Name: SHAYLA MARTINEZ MRN: [facility]:[id number] date: 2005 Sex: F Assigned Patient Location: [facility] Current Patient Location: [facility] Accession/Order Number: [id number] Exam Date: 11/05/2024 14:48 Report Date: 11/05/2024 [...] Ashley M.D. 11/05/2024 2:54 PM Dictation Location: [place] [address] Electronically authenticated by: [id number] Y Date: 11/05/2024 14:54 Dictated By: Thomas Ashley M.D. Signed By: 11/05/24 1457 DD/ 1454 TD/TT: Record Clerk: Procedure Note Radiology, Radiologist, MD - 11/05/2024 [place] [address] Ultrasound Report Signed Patient: BRODIE MARTINEZ#: [id number] : 2005Acct:[id number] Age/Sex: FADM Date: Loc: [facility] 253-[address]: Willi Christiansen D.O. Ordering Physician: Willi Christiansen D.O. Date of Service: 11/05/24 Procedure(s): US OB cervical length Accession Number(s): [id number] cc: Willi Christiansen D.O.; Physician,Non-Staff Arin The [place] [id number] Patient Name: SHAYLA MARTINEZ MRN: [facility]:[id number] date: 2005 Sex: F Assigned Patient Location: [facility] Current Patient Location: [facility] Accession/Order Number: [id number] Exam Date: 11/05/2024 14:48 Report Date: 11/05/2024 [...] Ashley M.D. 11/05/2024 2:54 PM Dictation Location: [place] [address] Electronically authenticated by: [id number] Y Date: 4:54 Dictated By: Thomas Ashley M.D. Signed By:11/05/24 1457 DD/ 1454 TD/TT: Record Clerk: Willi Christiansen DO [facility] Final Result [...] us Willi Елена DO [facility] Final Result [facility] * (ABNORMAL) [facility] UA (CLEAN/CATCH) ADVANCED SOLUTIONS ARCHITECT/MICRO IF IND. (11/05/2024 12:15 PM EDT) COLOR [...] us Willi Елена DO [facility] Final Result Performing Organization Address [facility] Co de Phone Number [facility] * (ABNORMAL) TRANSFERRIN (11/03/2024 4:53 PM EDT) TRANSFERRIN 470(A) 192 - 364 mg/dL TBH Comment: Performed at: [address] [id number] Utilization Management Rn: Ez Overton PhD, Phone: [phone] 11/03/2024 4:53 PM EDT 11/03/2024 4:56 PM EDT Narrative [facility] - 11/05/2024 5:07 AM EDT us Kristina RHODES LAB BLOOD ORDERABLES Final Resul t [facility] * MLR HEMOGLOBIN A1C (11/03/2024 4:53 PM EDT) [facility] GLYCOHEMOGLOBIN A1C 5.6 4.5 - 6.2 % TB Comment: ADA RECOMMENDED LIMIT 4.0 - 6.0 ADA THERAPEUTIC TARGET < 7.0 ACTION SUGGESTED > 7.0 ESTIMATED AVERAGE GLUCOSE 114 mg/dL [facility] 11/03/2024 4:53 PM EDT 11/03/2024 4:56 PM EDT Narrative CLINIS[facility]NC - 11/03/2024 6:28 PM EDT us Kristina RHODES [facility] Final Result [facility] TB * (ABNORMAL) [facility] FERRITIN (11/03/2024 4:53 PM EDT) [facility] FERRITIN 5.0(L) 8.0 - 252.0 ng/mL [facility] 11/03/2024 4:53 PM EDT 11/03/2024 4:56 PM EDT Narrative CLINIS[facility]NC - 11/03/2024 6:28 PM EDT us Kristina WARE Final Result [facility] TB * (ABNORMAL) ALL CBC WITH AUTO DIFF (11/03/2024 4:53 PM EDT) [facility] TB WBC 10.5 4.0 - 11.0 10 [...] PM EDT Kristina RHODES [facility] Final Result * (ABNORMAL) URINARY TRACT INFECTION (HTRX) (10/04/2024 4:19 PM EDT) ACINETOBACTER BAUMANII 0.000 19.961 - 24.689 ppm 10/06/2024 8:11 AM EDT [facility] ACINETOBACTER BAUMANII Not Detected 19.961 - 24.689 ppm 10/06/2024 8:11 AM EDT [facility] CITROBACTER FREUNDII 0.000 23.000 - 31.881 ppm 10/06/2024 8:11 AM EDT [facility] CITROBACTER FREUNDII Not Detected 23.000 - 31.881 ppm 10/06/2024 8:11 AM EDT [facility] ENTEROBACTER AEROGENES, CLOACAE 0.000 23.000 - 31.535 ppm 10/06/2024 8:11 AM EDT [facility] ENTEROBACTER AEROGENES, CLOACAE Not Detected 23.000 - 31.535 ppm 10/06/2024 8:11 AM EDT [facility] ENTEROCOCCUS FAECALIS, FAECIUM 0.000 26.000 - 31.575 ppm 10/06/2024 8:11 AM EDT [facility] ENTEROCOCCUS FAECALIS, FAECIUM Not Detected 26.000 - 31.575 ppm 10/06/2024 8:11 AM EDT [facility] ESCHERICHIA COLI 0.000 23.000 - 28.500 ppm 10/06/2024 8:11 AM EDT [facility] ESCHERICHIA COLI Not Detected 23.000 - 28.500 ppm 10/06/2024 8:11 AM EDT [facility] KLEBSIELLA PNEUMONIAE, OXYTOCA 0.000 23.000 - 30.500 ppm 10/06/2024 8:11 AM EDT [facility] KLEBSIELLA PNEUMONIAE, OXYTOCA Not Detected 23.000 - 30.500 ppm 10/06/2024 8:11 AM EDT [facility] MORGANELLA MORGANII 0.000 19.961 - 24.689 ppm 10/06/2024 8:11 AM EDT [facility] MORGANELLA MORGANII Not Detected 19.961 - 24.689 ppm 10/06/2024 8:11 AM EDT [facility] PROTEUS MIRABILIS, VULGARIS 0.000 23.000 - 28.500 ppm 10/06/2024 8:11 AM EDT [facility] PROTEUS MIRABILIS, VULGARIS Not Detected 23.000 - 28.500 ppm 10/06/2024 8:11 AM EDT [facility] PSEUDOMONAS AERUGINOSA 0.000 23.000 - 28.500 ppm 10/06/2024 8:11 AM EDT [facility] PSEUDOMONAS AERUGINOSA Not Detected 23.000 - 28.500 ppm 10/06/2024 8:11 AM EDT [facility] STAPHYLOCOCCUS AUREUS 0.000 26.000 - 30.902 ppm 10/06/2024 8:11 AM EDT [facility] STAPHYLOCOCCUS AUREUS Not Detected 26.000 - 30.902 ppm 10/06/2024 8:11 AM EDT [facility] STREPTOCOCCUS AGALACTIAE (GROUP B STREP) 20.802(A) 26.000 - 32.222 ppm 10/06/2024 8:11 AM EDT [facility] STREPTOCOCCUS AGALACTIAE (GROUP B STREP) Detected(A) 26.000 - 32.222 ppm 10/06/2024 8:11 AM EDT [facility] REMY ALBICANS, PARAPSILOSIS, TROPICALIS 0.000 19.961 - 30.770 ppm 10/06/2024 8:11 AM EDT [facility] REMY ALBICANS, PARAPSILOSIS, TROPICALIS Not Detected 19.961 - 30.770 ppm 10/06/2024 8:11 AM EDT [facility] REMY GLABRATA 0.000 23.000 - 32.138 ppm 10/06/2024 8:11 AM EDT [facility] REMY GLABRATA Not Detected 23.000 - 32.138 ppm 10/06/2024 8:11 AM EDT [facility] REMY KRUSEI 0.000 23.000 - 32.271 ppm 10/06/2024 8:11 AM EDT [facility] REMY KRUSEI Not Detected 23.000 - 32.271 ppm 10/06/2024 8:11 AM EDT [facility] SERRATIA MARCESCENS 0.000 23.000 - 31.204 ppm 10/06/2024 8:11 AM EDT [facility] SERRATIA MARCESCENS Not Detected 23.000 - 31.204 ppm 10/06/2024 8:11 AM EDT [facility] STREPTOCOCCUS PYOGENES (GROUP A STREP) 0.000 19.961 - 24.689 ppm 10/06/2024 8:11 AM EDT [facility] STREPTOCOCCUS PYOGENES (GROUP A STREP) Not Detected 19.961 - 24.689 ppm 10/06/2024 8:11 AM EDT [facility] STAPHYLOCOCCUS EPIDERMIDIS, HAEMOLYTICUS, LUGDUNENSIS, SAPROPHYTICUS (URINA 0.000 19.961 - 24.689 ppm 10/06/2024 8:11 AM EDT [facility] STAPHYLOCOCCUS EPIDERMIDIS, HAEMOLYTICUS, LUGDUNENSIS, SAPROPHYTICUS (URINA Not Detected 19.961 - 24.689 ppm 10/06/2024 8:11 AM EDT [facility] STAPHYLOCOCCUS EPIDERMIDIS, HAEMOLYTICUS, LUGDUNENSIS, SAPROPHYTICUS (URINA 0.000 19.961 - 24.689 ppm 10/06/2024 8:11 AM EDT [facility] STAPHYLOCOCCUS EPIDERMIDIS, HAEMOLYTICUS, LUGDUNENSIS, SAPROPHYTICUS (URINA Not Detected 19.961 - 24.689 ppm 10/06/2024 8:11 AM EDT [facility] ERMB, C; MEFA 21.295(A) 23.000 - 27.611 ppm 10/06/2024 8:11 AM EDT [facility] ERMB, C; MEFA Detected(A) 23.000 - 27.611 ppm 10/06/2024 8:11 AM EDT [facility] Urine 10/04/2024 4:19 PM EDT 10/06/2024 2:25 AM EDT us Willi Christiansen DO LAB BLOOD ORDERABLES Final Resul t [facility] [address] [place] [address] from Last 3 Months Insurance [employer] [place]ICA[place]
--- OUTSIDE RECORDS SUMMARY | 2024-12-17 04:08 | XMS_ITS | Encounter Summary ---
Author Organization [facility] Address [address] [place] [address] Care Team Providers Care Manager Water Name Role Phone Unavailable Primary Care Provider Unavailabl e Encounter Details Date Type Department Care Team (Late st Contact Info) Description 01/07/2024 Abstract [facility] [address] [place] [id number] [facility] [place], [facility] Social History Tobacco Use Types Packs/Day [...] Description 12/21/2024 2:00 PM EDT Routine [facility] OB [address] [place] [address] [facility] [place], [facility] documented as of this encounter Visit Diagnoses Not on filedocumented in this encounter
--- OUTSIDE RECORDS SUMMARY | 2024-12-17 04:08 | XMS_ITS | Encounter Summary ---
Author Organization [facility] Address [address] [place] [address] Care Team Providers Care Control Center Operator Name Role Phone Unavailable Primary Care Provider Unavailabl e Encounter Details Date Type Department Care Team (Late st Contact Info) Description 01/06/2024 Clinisync Result Encounter [facility] External Department Unsolicited Willi Christiansen, DO [address] [place], [place] [id number] Social History Tobacco Use Types Packs/Day Years [...] PM EDT Routine [facility] [address] [facility] [place] [phone] Willi Christiansen DO [address] [place] [address] documented as of this encounter Procedures Procedure Name Priority Date/Time Associated Diagnosis Comments US OB GROWTH 01/06/2024 11:23 AM EDT documented in this encounter Results * US OB GROWTH (01/06/2024 11:23 AM EDT) Anatomical Region Laterality Modality Other 01/06/2024 11:2 3 AM EDT Narrative 01/06/2024 11:26 AM EDT [address] [address] Ultrasound Report Signed Patient: SHAYLA MARTINEZ MR#: [id number] : 2005 Acct:[id number] Age/Sex: 18 / F ADM Date: 01/06/24 Loc: [facility] Attending Dr: Willi Christiansen D.O. Ordering Physician: Willi Christiansen D.O. Date of Service: 01/06/24 Procedure(s): US OB growth Accession Number(s): [id number] cc: Willi Christiansen D.O.; Physician,Non-Staff Arin [address] [address] Patient Name: SHAYLA MARTINEZ MRN: [facility]:[id number] date: 2005 Sex: F Assigned Patient Location: [facility] Current Patient Location: [facility] Accession/Order Number: [id number] Exam Date: 01/06/2024 10:06 Report Date: 01/06/2024 [...] Signed By: 01/06/24 1126 DD/ 1123 TD/TT: Automotive Sales Specialist: Procedure Note Radiology, Radiologist, MD - 01/06/2024 [place] [address] Ultrasound Report Signed Patient: BRODIE MARTINEZ#: [id number] : 2005Acct:[id number] Age/Sex: 18 FADM Date: 01/06/24 Loc: [facility] Attending Dr: Willi Christiansen D.O. Ordering Physician: Willi Christiansen D.O. Date of Service: 01/06/24 Procedure(s): US OB growth Accession Number(s): [id number] cc: Willi Christiansen D.O.; Physician,Non-Staff Arin The [place] [address] Patient Name: SHAYLA MARTINEZ MRN: [id number] date: 2005 Sex: F Assigned Patient Location: [facility] Current Patient Location: [facility] Accession/Order Number: [id number] Exam Date: 01/06/2024 10:06 Report Date: 01/06/2024 [...] M.D. Signed By:01/06/24 1126 DD/ 1123 TD/TT: Automotive Sales Specialist: us Willi Елена DO [facility] Final Result documented in this encounter Visit Diagnoses Not on filedocumented in this encounter
--- OUTSIDE RECORDS SUMMARY | 2024-12-17 04:08 | XMS_ITS | Encounter Summary ---
Author Organization [facility] Address [address] [place] [address] Care Team Providers Care Tree Doctor Name Role Phone Unavailable Primary Care Provider Unavailabl e Encounter Details Date Type Department Care Team (Late st Contact Info) Description 02/02/2024 Abstract [facility] [address] [place] [address] Nelson Christiansen [facility] [address], [facility]11 Social History Tobacco Use Types Packs/Day [...] Description 12/21/2024 2:00 PM EDT Routine [facility] OB [address] [place] [address] Nelson Christiansen [facility] [address], [facility]11 documented as of this encounter Visit Diagnoses Not on filedocumented in this encounter
--- OUTSIDE RECORDS SUMMARY | 2024-12-17 04:08 | XMS_ITS | Encounter Summary ---
Author Organization [facility] Address [address] [place] [address] Care Team Providers Care Product Safety Specialist Name Role Phone Unavailable Primary Care Provider Unavailabl e Encounter Details Date Type Department Care Team (Late st Contact Info) Description 01/03/2024 Clinisync Result Encounter [facility] External Department Unsolicited Willi Christiansen, DO [address] [place], [place] [id number] Social History Tobacco Use Types Packs/Day Years [...] PM EDT Routine [facility] BCP OB [address] [place] [address] Willi Christiansen, DO [address] [place] [address] documented as of this encounter Procedures Procedure Name Priority Date/Time Associated Diagnosis Comments US OB CERVICAL LENGTH 01/03/2024 8:37 AM EDT documented in this encounter Results * US OB CERVICAL LENGTH (01/03/2024 8:37 AM EDT) Anatomical Region Laterality Modality Other 01/03/2024 8:37 AM EDT Narrative 01/03/2024 8:40 AM EDT [address] [address] Ultrasound Report Signed Patient: SHAYLA MARTINEZ MR#: [id number] : 2005 Acct:[id number] Age/Sex: 18 / F ADM Date: Loc: [facility] [address]: Willi Christiansen D.O. Ordering Physician: Willi Christiansen D.O. Date of Service: 01/03/24 Procedure(s): US OB cervical length Accession Number(s): [id number] cc: Willi Christiansen D.O.; Physician,Non-Staff Arin The [address] [address] Patient Name: SHAYLA MARTINEZ MRN: [facility]:[id number] date: 2005 Sex: F Assigned Patient Location: [facility] Current Patient Location: [facility] Accession/Order Number: [id number] Exam Date: 01/03/2024 07:11 Report Date: 01/03/2024 [...] Signed By: 01/03/24 0840 DD/ 0837 TD/TT: Sales Trainer: Procedure Note Radiology, Radiologist, MD - 01/03/2024 The [place] [id number] Ultrasound Report Signed Patient: BRODIE MARTINEZ#: [id number] : 2005Acct:[id number] Age/Sex: 18 / FADM Date: Loc: [facility] 251-[address]: Willi Christiansen D.O. Ordering Physician: Willi Christiansen D.O. Date of Service: 01/03/24 Procedure(s): US OB cervical length Accession Number(s): [id number] cc: Willi Christiansen D.O.; Physician,Non-Staff Arin The [place] [id number] Patient Name: SHAYLA MARTINEZ MRN: [id number] date: 2005 Sex: F Assigned Patient Location: [facility] Current Patient Location: [facility] Accession/Order Number: [id number] Exam Date: 01/03/2024 07:11 Report Date: 01/03/2024 [...] Hdez M.D. Signed By:01/03/24 0840 DD/ TD/TT: Sales Trainer: us Willi Christiansen DO [facility] Final Result documented in this encounter Visit Diagnoses Not on filedocumented in this encounter
--- OUTSIDE RECORDS SUMMARY | 2024-12-17 04:08 | XMS_ITS | Encounter Summary ---
Author Organization [facility] Address [address] [place] [address] Care Team Providers Care Retail Office Associate Name Role Phone Unavailable Primary Care Provider Unavailabl e Encounter Details Date Type Department Care Team (Late st Contact Info) Description 10/21/2023 Clinisync Result Encounter [facility] External Department Unsolicited Willi Christiansen, DO [facility] [place] [address] Social History Tobacco Use Types Packs/Day Years [...] Description 12/21/2024 2:00 PM EDT Routine [facility] OB [address] [place] [phone] Willi Christiansen DO [address] [place] [address] documented as of this encounter Procedures Procedure Name Priority Date/Time Associated Diagnosis Comments US OB ANATOMY 10/21/2023 8:27 AM EDT documented in this encounter Results * US OB ANATOMY (10/21/2023 8:27 AM EDT) Anatomical Region Laterality Modality Other 10/21/2023 8:27 AM EDT Narrative 10/21/2023 8:30 AM EDT [address] [address] Ultrasound Report Signed Patient: SHAYLA MARTINEZ MR#: [id number] : 2005 Acct:[id number] Age/Sex: 17 / F ADM Date: 10/20/23 Loc: US Attending Dr: Willi Christiansen D.O. Ordering Physician: Willi Christiansen D.O. Date of Service: 10/20/23 Procedure(s): US OB anatomy Accession Number(s): [id number] cc: Willi Christiansen D.O.; Physician,Non-Staff MFrancesca [address] [address] Patient Name: SHAYLA MARTINEZ MRN: [facility]:[id number] date: 2005 Sex: F Assigned Patient Location: US Current Patient Location: Accession/Order Number: [id number] Exam Date: 10/20/2023 15:00 Report Date: 10/21/2023 [...] M.D. Signed By: 10/21/23829 DD/ 6 TD/TT: Employment Consultant: Procedure Note Radiology, Radiologist, MD - 10/21/2023 [place] [address] Ultrasound Report Signed Patient: FRAN MARTINEZR#: [id number] : 2005Acct:[id number] Age/Sex: 17 / FADM Date: 10/20/23 Loc: US Attending Dr: Willi Christiansen D.O. Ordering Physician: Willi Christiansen D.O. Date of Service: 10/20/23 Procedure(s): US OB anatomy Accession Number(s): [id number] cc: Willi Christiansen D.O.; Physician,Non-Staff Arin The [address] [address] Patient Name: SHAYLA MARTINEZ MRN: [id number] date: 2005 Sex: F Assigned Patient Location: US Current Patient Location: Accession/Order Number: [id number] Exam Date: 10/20/2023 15:00 Report Date: 10/21/2023 [...] Solano M.D. Signed By:10/21/23829 DD/ 6 TD/TT: Employment Consultant: Willi Christiansen DO [facility] Final Result documented in this encounter Visit Diagnoses Not on filedocumented in this encounter
--- OUTSIDE RECORDS SUMMARY | 2024-12-17 04:08 | XMS_ITS | Encounter Summary ---
Author Organization [facility] Address [address] [place] [address] Care Team Providers Care Asw/Asuw Tactical Air Controller Name Role Phone Unavailable Primary Care Provider Unavailabl e Encounter Details Date Type Department Care Team (Late st Contact Info) Description 01/03/2024 Clinisync Result Encounter [facility] External Department Unsolicited Willi Christiansen, DO [address] [place], [place] [address] Social History Tobacco Use Types Packs/Day Years [...] Routine [facility]CP OB [address] [facility] [address] Willi Christiansen, DO [address] [place] [address] documented as of this encounter Procedures Procedure Name Priority Date/Time Associated Diagnosis Comments US OB BPP W NON-STRESS 01/03/2024 9:01 AM EDT documented in this encounter Results * US OB BPP W NON-STRESS (01/03/2024 9:01 AM EDT) Anatomical Region Laterality Modality Other 01/03/2024 9:01 AM EDT Narrative 01/03/2024 9:04 AM EDT [place] [id number] Ultrasound Report Signed Patient: SHAYLA MARTINEZ MR#: [id number] : 2005 Acct:[id number] Age/Sex: 18 / F ADM Date: Loc: [facility] 251-[address]: Willi Christiansen D.O. Ordering Physician: Willi Christiansen D.O. Date of Service: 01/03/24 Procedure(s): US OB BPP w non-stress Accession Number(s): [id number] cc: Willi Christiansen D.O.; Physician,Non-Staff Arin [place] [id number] Patient Name: SHAYLA MARTINEZ MRN: [id number] date: 2005 Sex: F Assigned Patient Location: [facility] Current Patient Location: [facility] Accession/Order Number: [id number] Exam Date: 01/03/2024 07:11 Report Date: 01/03/2024 [...] M.D. Signed By: 01/03/24903 DD/ 0 TD/TT: News Assistant: Procedure Note Radiology, Radiologist, MD - 01/03/2024 [place] [address] Ultrasound Report Signed Patient: BRODIE MARTINEZ#: [id number] : 2005Acct:[id number] Age/Sex: 18 / FADM Date: Loc: [facility] 251-[address]: Willi Christiansen D.O. Ordering Physician: Willi Christiansen D.O. Date of Service: 01/03/24 Procedure(s): US OB BPP w non-stress Accession Number(s): [id number] cc: Willi Christiansen D.O.; Physician,Non-Staff Arin The [place] [id number] Patient Name: SHAYLA MARTINEZ MRN: [id number] date: 2005 Sex: F Assigned Patient Location: [facility] Current Patient Location: [facility] Accession/Order Number: [id number] Exam Date: 01/03/2024 07:11 Report Date: 01/03/2024 [...] Hdez M.D. Signed By:01/03/2404 DD/ 0 TD/TT: News Assistant: us Willi Christiansen DO [facility] Final Result documented in this encounter Visit Diagnoses Not on filedocumented in this encounter
--- OUTSIDE RECORDS SUMMARY | 2024-12-17 04:08 | XMS_ITS ---
Author Organization [facility] c[facility] (ClinicalSummary Clone) Address Unknown Care Team Providers Care Imagery Intelligence Name Role Phone Unavailable Primary Care Physician Unavailab le Results * [UNITY] ANEUPLOIDY NIPT Performed by: [facility] Component Value Range Date Fraction 6.8% 07/03/2024 06 :29 am [facility] Sex Chromosome Aneuploidy NOT DETECTED 06:29 am [facility] Monosomy X LOW RISK <1 in 10,000 2024 06:29 am [facility] Trisomy 13 LOW RISK <1 in 10,000 2024 06:29 am [facility] Trisomy 18 LOW RISK <1 in 10,000 2024 06:29 am [facility] Trisomy 21 LOW RISK <1 in 10,000 2024 06:29 am [facility] Sex MALE 07/03/2024 06:2 9 am [facility] Gestation KIM 07/03/19 25 06:29 am [facility] For detailed report, see PDF See PDF 07/03/2024 06:29 am [facility] 07/03/2024 06:2 9 am [facility] Social History Observation Value Start Date End Date
--- OUTSIDE RECORDS SUMMARY | 2024-12-17 04:08 | XMS_ITS | Encounter Summary ---
Author Organization [facility] Address [address] [place] [address] Care Team Providers Care Administrative Coordinator Name Role Phone Unavailable Primary Care Provider Unavailabl e Encounter Details Date Type Department Care Team (Late st Contact Info) Description 06/28/2024 Abstract [facility] OB [address] [place] [phone] Nelson Christiansen DO [facility] [address], [facility]11 Social History Tobacco Use Types Packs/Day [...] Routine [facility] BCP OB [address] [place] [address] Nelson Christiansen DO [facility] [address], [facility]11 documented as of this encounter Visit Diagnoses Not on filedocumented in this encounter
--- OUTSIDE RECORDS SUMMARY | 2024-12-17 04:08 | XMS_ITS | Encounter Summary ---
Author Organization [facility] Address [address] [place] [address] Care Team Providers Care Precinct Commanding Officer Name Role Phone Unavailable Primary Care Provider Unavailabl e Encounter Details Date Type Department Care Team (Late st Contact Info) Description 02/12/2024 Abstract [facility] [address] [place] [phone] Nelson Christiansen [facility] [address], [facility]11 Social History Tobacco Use Types Packs/Day [...] Description 12/21/2024 2:00 PM EDT Routine [facility] OB [address] [place] [address] Nelson Christiansen [facility] [address], [facility]11 documented as of this encounter Visit Diagnoses Not on filedocumented in this encounter
--- OUTSIDE RECORDS SUMMARY | 2024-12-17 04:08 | XMS_ITS | Encounter Summary ---
Author Organization [facility] Address [address] [place] [address] Care Team Providers Care Ms Sql Dba Name Role Phone Unavailable Primary Care Provider Unavailabl e Encounter Details Date Type Department Care Team (Late st Contact Info) Description 07/05/2024 Abstract [facility] OB [address] [place] [phone] Nelson Christiansen DO [facility] [address], [facility]11 Social History Tobacco Use Types Packs/Day Years [...] Routine [facility] BCP OB [address] [place] [address] Nelson Christiansen DO [facility] [address], [facility]11 documented as of this encounter Visit Diagnoses Not on filedocumented in this encounter
--- OUTSIDE RECORDS SUMMARY | 2024-12-17 04:08 | XMS_ITS | Encounter Summary ---
Author Organization [facility] Address [address] [place] [address] Care Team Providers Care Cutter Grind Tool Technician Name Role Phone Unavailable Primary Care Provider Unavailabl e Encounter Details Date Type Department Care Team (Late st Contact Info) Description 02/04/2024 Abstract [facility] [address] [place] [address] Nelson Christiansen [facility] [address], [facility]11 Social History Tobacco Use Types Packs/Day [...] Description 12/21/2024 2:00 PM EDT Routine [facility] OB [address] [place] [address] Nelson Christiansen [facility] [address], [facility]11 documented as of this encounter Visit Diagnoses Not on filedocumented in this encounter
--- OUTSIDE RECORDS SUMMARY | 2024-12-17 04:08 | XMS_ITS | Encounter Summary ---
Author Organization [facility] Address [address] [place] [address] Care Team Providers Care Coordinator Skill Training Program Name Role Phone Unavailable Primary Care Provider Unavailabl e Encounter Details Date Type Department Care Team (Late st Contact Info) Description 11/29/2024 Abstract [facility] OB [address] [place] [address] Nelson Christiansen DO [facility] [address], [facility]11 Social History Tobacco Use Types Packs/Day Years [...] [place] [address] Nelson Christiansen DO [facility] [address], [facility]11 documented as of this encounter Visit Diagnoses Not on filedocumented in this encounter
--- OUTSIDE RECORDS SUMMARY | 2024-12-17 04:08 | XMS_ITS | Clinical Summary ---
Author Organization [employer] [facility] [employer] Address [id number] [place] [address] Care Team Providers Care Senior Oracle Adf Developer Name Role Phone Haleigh Her APRN-LEPIDOPTERIST Primary Care Provid er Allergies Active Allergy [...] exists Medical Devices Not on file Insurance [facility] ANTHEM MEDICAID ANTHEM ANTHEM MEDICAID Care Teams Senior Oracle Adf Developer Relationship Specialty Start Date End Date Haleigh Her APRN-MAXIMILIANO [address] [place] [address] PCP - General Family Medicine 11/27/22
--- OUTSIDE RECORDS SUMMARY | 2024-12-17 04:08 | XMS_ITS | Encounter Summary ---
Author Organization [facility] Address [address] [place] [address] Care Team Providers Care Developer Relations Manager Name Role Phone Unavailable Primary Care Provider Unavailabl e Encounter Details Date Type Department Care Team (Late st Contact Info) Description 02/10/2024 Abstract [facility] [address] [place] [phone] Nelson Christiansen [facility] [address], [facility]11 Social History Tobacco Use Types Packs/Day Years [...] Description 12/21/2024 2:00 PM EDT Routine [facility] OB [address] [place] [address] Nelson Christiansen [facility] [address], [facility]11 documented as of this encounter Visit Diagnoses Not on filedocumented in this encounter
[2024-12-17 04:15] VITALS: BP 156/91; PULSE 84
[2024-12-17 04:32] LABS: Glucose Urine UA NEGATIVE (NEGATIVE)
[2024-12-17 04:33] VITALS: BP 133/72; PULSE 72
[2024-12-17 04:40] LABS: Cast Seen? NONE SEEN #/LPF (NONE SEEN); Crystals Seen? Seen #/HPF (None Seen); Urine Culture Indicated YES-LC
[2024-12-17] MEDS: 0.9 % SODIUM CHLORIDE 1,000 ML 125 ML IV ×2 (05:40→10:01)
--- NOTE | 2024-12-17 09:52 | PM.OBHP ---
OB - H&P: HPI History of Present Illness Chief complaint: CRAMPING, BACK PAIN : 2 Para: 1 Gestational age based on last menstrual period: 37 1/7w History of Present care: good care Ultrasounds: normal 1st trimester US and normal mid trimester US complications: other Medical complications OB: genitourinary Labs Blood type: A (+) positive Rubella: immune RPR/VDLR: nonreactive PFSH PFSH Medical History (Updated 02/14/24 @ 12:03 by Brenda Cook MD) Normal vaginal delivery ?O80 - Encounter for full-term uncomplicated delivery (ICD-10) Surgical History History of adenoidectomy ?Z90.89 - Acquired absence of other organs (ICD-10) History of tonsillectomy ?Z90.89 - Acquired absence of other organs (ICD-10) Family History (Updated 02/12/24 @ 08:45 by Gloria Stubbs) Other Family history of heart disease Meds Home Medications and Allergies Home Medications ?Medication ?Instructions ?Recorded ?Confirmed ?Type ondansetron 4 mg disintegrating 4 mg PO Q6H PRN nausea and 01/03/24 12/17/24 Rx tablet vomiting 5 days #20 tabs polysaccharide iron complex 180 mg 180 mg PO DAILY 11/20/24 12/17/24 History iron capsule (Pro Fe) Allergies Allergy/AdvReac Type Severity Reaction Status Date / Time Penicillins Allergy Intermediate hives Verified 11/27/23 18:22 Exam Narrative Exam Narrative: pt complaining of severe back and lower abdominal pain and contractions. endorses movement Constitutional Vital Signs, click to edit/add: Last Vital Signs Pulse 72 12/17/24 04:33 BP 133/72 12/17/24 04:33 General appearance: comfortable Respiratory Common normals: normal respiratory effort Common normals: no CVA tenderness Bimanual exam- vagina & uterus: uterus non-tender Manual OB Exam: dilated 3 cm, effaced 50% and station -2 Amniotic Fluid: no fluid Back & Pelvis Common normals: no CVA tenderness (mild low back bilateral musculoskeletal tenderness) Lumbar spine/lower back: lumbar ROM normal Results Labs Labs: Urine 12/17/24 Range/Units 04:00 Urine Color Lt. yellow (YELLOW) Urine Clarity Clear (CLEAR) Urine pH 6.5 (5.0-9.0) Ur Specific [place] 1.020 (1.005-1.025) Urine Protein Negative (NEG/TRACE) mg/dL Urine Glucose (UA) Negative (NEGATIVE) mg/dL Additional Findings Additional findings: GBS pending and pt wiwth amox allergy. Had GBS last and was treated with vancomycin OB - A/P Assessment and Plan (1) Intrauterine : (2) Rib pain: (3) History of adenoidectomy: (4) History of tonsillectomy: (5) Normal vaginal delivery: Plan pt is in early active labor with cervical change during her observation period. Admitted for labor mgmt. Likely will want epidural. NST has been category one. she has pending GBS but will treat empirically with clindamycin Additional Plan Plan: expectant management
[2024-12-17 10:05] VITALS: BP 133/62; PULSE 67; TEMP 35.6
[2024-12-17 11:00] LABS: Hematocrit 31.3 % (36.0-48.0); Hemoglobin 10.1 g/dL (12.0-16.0); Mean Corpuscular HGB Conc 32.3 g/dL (29.9-35.2); Mean Corpuscular Hemoglobin 27.2 pg (26.7-34.0); Mean Corpuscular Volume 84.4 fL (81.0-99.0); Platelet Count 229 10^3/uL (150-450); Red Blood Count 3.71 10^6/uL (4.20-5.40); White Blood Count 8.6 10^3/uL (4.0-11.0)
[2024-12-17] MEDS: CLINDAMYCIN PHOSPHATE/D5W 900 MG/50 ML PREMIX 100 MG IV (11:02)
[2024-12-17 11:21] LABS: Cannabinoid Screen Urine POSITIVE (NEGATIVE); Methamphetamines Screen Urine NEGATIVE (NEGATIVE); Tricyclic Antidepressant Urine NEGATIVE (NEGATIVE)
[2024-12-17 12:44] VITALS: BP 132/65; PULSE 65; TEMP 36.3
[2024-12-17 15:25] VITALS: BP 127/71; PULSE 93
--- NOTE | 2024-12-18 10:24 | PM.OBDS ---
DS: Providers Provider Date of admission: 12/17/24 10:30 Primary care physician: Non-Staff Physician, Admitting clinician: JARON BRADEN Attending physician on admission: JARON BRADEN Consults: 12/17/24 Consult to Anesthesiology Routine Consulting Provider: Timothy Leal Reason for consultation: epidural Has provider been notified: No Attending physician on discharge: JARON BRADEN Discharging clinician: JARON BRADEN Anticipated date of discharge: 12/17/24 DS: Diagnosis Discharge Diagnosis (1) Intrauterine : (2) Rib pain: (3) History of adenoidectomy: (4) History of tonsillectomy: OB - DS: Summary Hospital Course Hospital Course: pt was admitted for observation due to pain and contractions. She did have cervical change and was admitted but after several hours had no further cervical change Infant Discharge plan: home Status at Discharge Functional status at discharge: independent ambulation Time Spent with Patient Time attestation: Total time spent providing and/or coordinating discharge services: Time spent: less than 30 minutes Exam Narrative Exam Narrative: unchanged vaginal exam at 3cm, NST reactive category one, contractions resolved Constitutional Vital Signs, click to edit/add: Last Vital Signs Temp 97.3 F L 12/17/24 12:44 Pulse 93 H 12/17/24 15:25 BP 127/71 12/17/24 15:25 O2 Del Method Room Air 12/17/24 11:10 DS: Data Data Completed and Pending Labs on day of discharge: Labs from last 24 hours 12/17/24 12/17/24 10:52 04:00 WBC 8.6 RBC 3.71 L Hgb 10.1 L Hct 31.3 L MCV 84.4 MCH 27.2 MCHC 32.3 RDW 17.8 H Plt Count 229 MPV 10.5 Urine Opiates Screen Negative Ur Buprenorphine Scrn Negative Ur Oxycodone Screen Negative Urine Methadone Screen Negative Ur Barbiturates Screen Negative U Tricyclic Antidepress Negative Ur Phencyclidine Scrn Negative Ur Amphetamines Screen Negative U Methamphetamines Scrn Negative U Benzodiazepines Scrn Negative Urine Cocaine Screen Negative U Cannabinoids Screen Positive A Blood Type A Positive Antibody Screen Negative Discharge Plan Discharge Disposition: Home, Self-Care Assessment: stable at 37 1/7w Discharge Medications: Continued Pro Fe 180 mg iron capsule 180 mg PO DAILY ondansetron 4 mg tablet,disintegrating 4 mg PO Q6H PRN (Reason: nausea and vomiting) 5 Days Qty: 20 0RF Activity: resume usual activities as tolerated Diet: regular diet Print Language: Turkmen Forms: Portal Instructions
[2024-12-22 20:08] LABS: Carboxy THC Conf, MS, UR 125 ng/mL (Cutoff=10)
== END 2024-12-17 16:55 | disposition home or self-care (01) ==
PROVIDERS: Admitting Provider Obstetrics & Gynecology; Visit Provider Obstetrics & Gynecology
DX: O47.03 False labor before 37 completed weeks of gestation, third trimester (principal); Z3A.37 37 weeks gestation of pregnancy
CPT/HCPCS: 36415; 59025; 80307; 80349; 81001; 84112; 85027; 86850; 86900; 86901; 87086; 96365; 96375; G0378; G0379; J0736; J2300; J2405

== ENCOUNTER 2024-12-22 23:04 | Inpatient (IN) | payer MEDICAID, SELFPAY ==
--- OUTSIDE RECORDS SUMMARY | 2024-12-22 23:10 | XMS_ITS | CCD ---
Author Organization [facility] Care Team Providers [employer] Studio Data Analyst Name Role Phone Sravani Dumont Unavailable [...] Drug Class(es) Dates Sig (Normalized) Sig (Original) [id number] 200 actuat albuterol 0.09 mg/actuat metered dose [...] Nexplanon 68 MG as directed Subcutaneous Active metroNIDAZOLE 500 mg oral tablet (1 source) Nitroimidazole Antimicrobial Start: 12-13-2024 End: 12-20-2024 take 1 tablet by mouth in the morning metroNIDAZOLE (Flagyl) 500 MG tablet Indications: Third trimester ([facility]) , 36 weeks gestation of ([facility]) Take 1 tablet (500 mg) by mouth in the morning and 1 tablet (500 mg) before bedtime. Do all this for 7 days. 14 tablet 12/13/2024 12/20/2024 Active multivitamin () 27-0.8 MG tablet (2 [...] MG capsule Indications: 30 weeks gestation of ([facility]) , Third trimester ([facility]) Take 1 capsule (391.3 mg) by mouth [...] cream (2 sources) Azole Antifungal Start: 07-27-19 25 End: 08-03-19 25 terconazole (Terazol 7) 0.4 % vaginal cream [...] low weight; and growth retardation (4 sources) Hnomv-mww-fjkhw baby; Translations: [[place] small for gestational age, unspecified weight] 10-04-2024 [...] Test Name Value Interpretation Reference Range Facility AMNISUREon 12-17-2024 [facility] AMNISURE Negative NEGATIVE [facility] macro (dipstick) panel (U)on 12-13-2024 Bilirubin, UA Negative Negative - 4(70) +++ mg/dL [facility] Blood, UA Negative Negative - 50 Onur/mcL [facility] Clarity, UA Clear [facility] re Color, UA Yellow [facility] Glucose, UA Negative Negative - 1999(110) ++++ mg/dL [facility] Interpretation and review of laboratory results Abnormal [facility] Ketones, UA Positive Negative - 160(16) ++++ mg/dL [facility] Comment on above: Trace Leukocytes, UA Positive Negative - 500+++ Todd/mcL [facility] Comment on above: small Nitrite, UA Negative Negative - Positive [facility] pH, UA 7 5 - 9 [facility] Protein, UA Positive Negative - 1999(20) ++++ mg/dL [facility] Comment on above: 30mg/dL Spec Grav, UA 1.025 1 - 1.03 [facility] Urobilinogen, UA 0.2 0.2 - 12 mg/dL [facility] US OB BPP W NON-STRESS on 12-08-2024 [place] [address] Ultrasound Report Signed Patient: SHAYLA MARTINEZ MR#: [id number] : 2005 Acct:[id number] Age/Sex: 19 / F ADM Date: 12/08/24 Loc: US Attending Dr: Willi Christiansen D.O. Ordering Physician: Willi Christiansen D.O. Date of Service: 12/08/24 Procedure(s): US OB BPP w non-stress Accession Number(s): [id number] cc: Willi Christiansen D.O.; Physician,Non-Staff M.D. The [place] [id number] Patient Name: SHAYLA MARTINEZ MRN: [id number]:[id number] date: 2005 Sex: F Assigned Patient Location: [facility] Current Patient Location: Accession/Order Number: [id number] Exam Date: 12/08/2024 16:10 Report Date: 12/08/2024 16:11 At the request of: WILLI CHRISTIANSEN DO Procedure: US OB BPP w non-stress Biophysical profile. Reason for exam: Smaller gestational age. COMPARISON: BPP 12/03/2024. TECHNIQUE: Transabdominal imaging of the gravid uterus was obtained. FINDINGS: [employer] reports a BPP of 8 out of 8. R[place] is normal at 11.4 cm. heart rate 152 bpm. US/US OB BPP w non-stress IMPRESSION: BPP 8 out of 8. Impression dictated by: Roque Baker Jr., D.O. 12/08/2024 4:11 PM Dictation Location: [place] [address] Electronically authenticated by: [id number] Y Date: 12/08/2024 16:11 Dictated By: Roque Baker M.D. Signed By: 12/08/241612 DD/ 10 TD/TT: Variety Lathe Operator: [facility] Radiology, Radiologist, MD - 12/08/2024 [place] [address] Ultrasound Report Signed Patient: SHAYLA MARTINEZ MR#: [id number] : 2005 Acct:[id number] Age/Sex: 19 / F ADM Date: 12/08/24 Loc: US Attending Dr: Willi Christiansen D.O. Ordering Physician: Willi Christiansen D.O. Date of Service: 12/08/24 Procedure(s): US OB BPP w non-stress Accession Number(s): [id number] cc: Willi Christiansen D.O.; Physician,Non-Staff Arin [facility] [place] [id number] Patient Name: SHAYLA MARTINEZ MRN: [facility]:[id number] date: 2005 Sex: F Assigned Patient Location: [facility] Current Patient Location: Accession/Order Number: [id number] Exam Date: 12/08/2024 16:10 Report Date: 12/08/2024 16:11 At the request of: WILLI CHRISTIANSEN DO Procedure: US OB BPP w non-stress Biophysical profile. Reason for exam: Smaller gestational age. COMPARISON: BPP 12/03/2024. TECHNIQUE: Transabdominal imaging of the gravid uterus was obtained. FINDINGS: [employer] reports a BPP of 8 out of 8. [place] is normal at 11.4 cm. heart rate 152 bpm. US/US OB BPP w non-stress IMPRESSION: BPP 8 out of 8. Impression dictated by: Roque Baker Jr., D.O. 12/08/2024 4:11 PM Dictation Location: [place] [address] Electronically authenticated by: [id number] Y Date: 12/08/2024 16:11 Dictated By: Roque Baker M.D. Signed By: 12/08/241612 DD/ 10 TD/TT: Variety Lathe Operator: [facility] [employer] Radiology Study observation (narrative) [facility] [employer] US OB BPP W NON-STRESS Ordered By: Radiologist Radiology on 12-08-2024 [facility] [employer] Work Phone: US OB BPP W NON-STRESS on 12-03-2024 [place] [address] Ultrasound Report Signed Patient: SHAYLA MARTINEZ MR#: [id number] : 2005 Acct:[id number] Age/Sex: 18 / F ADM Date: 12/03/24 Loc: [facility] Attending Dr: Willi Christiansen D.O. Ordering Physician: Willi Christiansen D.O. Date of Service: 12/03/24 Procedure(s): US OB BPP w non-stress Accession Number(s): [id number] cc: Willi Christiansen D.O.; Physician,Non-Staff M.Jorden [address] [address] Patient Name: SHAYLA MARTINEZ MRN: [facility]H:[id number] date: 2005 Sex: F Assigned Patient Location: [facility] Current Patient Location: Accession/Order Number: [id number] Exam Date: 12/03/2024 16:04 Report Date: 12/03/2024 [...] Ladd M.D. 12/03/2024 4:05 PM Dictation Location: [employer] Electronically authenticated by: [id number] Y Date: 12/03/2024 16:05 Dictated By: Froy Ladd D.O. Signed By: 12/03/24 1607 DD/ 04 TD/TT: Variety Lathe Operator: [facility] Radiology, Radiologist, MD - 12/03/2024 [place] [address] Ultrasound Report Signed Patient: SHAYLA MARTINEZ MR#: [id number] : 2005 Acct:[id number] Age/Sex: 18 / F ADM Date: 12/03/24 Loc: [facility] Attending Dr: Willi Christiansen D.O. Ordering Physician: Willi Christiansen D.O. Date of Service: 12/03/24 Procedure(s): US OB BPP w non-stress Accession Number(s): [id number] cc: Willi Christiansen D.O.; Physician,Non-Staff MFrancesca [facility] [place] [id number] Patient Name: SHAYLA MARTINEZ MRN: [facility]:[id number] date: 2005 Sex: F Assigned Patient Location: [facility] Current Patient Location: Accession/Order Number: [id number] Exam Date: 12/03/2024 16:04 Report Date: 12/03/2024 [...] Ladd M.D. 12/03/2024 4:05 PM Dictation Location: [place] [address] Electronically authenticated by: [id number] Y Date: 12/03/2024 16:05 Dictated By: Froy Ladd D.O. Signed By: 12/03/24 1607 DD/ 04 TD/TT: Variety Lathe Operator: [facility] [employer] Radiology Study observation (narrative) [facility] [employer] US OB BPP W NON-STRESS Ordered By: Radiologist Radiology on 12-03-2024 [employer] Work Phone: No Panel InformationOrdered By: Radiologist Radiology on 11-17-2024 [employer] Work Phone: US OB BPP W NON-STRESS on 11-17-2024 [place] [address] Ultrasound Report Signed Patient: SHAYLA MARTINEZ MR#: [id number] : 2005 Acct:[id number] Age/Sex: 18 / F ADM Date: 11/17/24 Loc: US Attending Dr: Willi Christiansen D.O. Ordering Physician: Willi Christiansen D.O. Date of Service: 11/17/24 Procedure(s): US OB BPP w non-stress Accession Number(s): [id number] cc: Wlili Christiansen D.O.; Physician,Non-Staff Arin [facility] [place] [id number] Patient Name: SHAYLA MARTINEZ MRN: [id number] date: 2005 Sex: F Assigned Patient Location: [facility] Current Patient Location: Accession/Order Number: [id number] Exam Date: 11/17/2024 14:57 Report Date: 11/17/2024 [...] Ladd M.D. 11/17/2024 2:58 PM Dictation Location[facility] Electronically authenticated by: [id number] Y Date: 11/17/2024 14:58 Dictated By: Froy Ladd D.O. Signed By: 11/17/24 1500 DD/ 1458 TD/TT: Variety Lathe Operator: [facility] Radiology, Radiologist, MD - 11/17/2024 [place] [address] Ultrasound Report Signed Patient: SHAYLA MARTINEZ MR#: [id number] : 2005 Acct:[id number] Age/Sex: 18 / F ADM Date: 11/17/24 Loc: US Attending Dr: Willi Christiansen D.O. Ordering Physician: Willi Christiansen D.O. Date of Service: 11/17/24 Procedure(s): US OB BPP w non-stress Accession Number(s): [id number] cc: Willi Christiansen D.O.; Physician,Non-Staff Arin [facility] [place] [id number] Patient Name: SHAYLA MARTINEZ MRN: [facility]:[id number] date: 2005 Sex: F Assigned Patient Location: [facility] Current Patient Location: Accession/Order Number: [id number] Exam Date: 11/17/2024 14:57 Report Date: 11/17/2024 [...] Ladd M.D. 11/17/2024 2:58 PM Dictation Location[facility] Electronically authenticated by: [id number] Y Date: 11/17/2024 14:58 Dictated By: Froy Ladd D.O. Signed By: 11/17/24 1500 DD/ 1458 TD/TT: Variety Lathe Operator: [facility] Radiology Study observation (narrative) [facility] OB GROWTHon 11-17-2024 [place] [address] Ultrasound Report Signed Patient: SHAYLA MARTINEZ MR#: [id number] : 2005 Acct:[id number] Age/Sex: 18 / F ADM Date: 11/17/24 Loc: US Attending Dr: Willi Christiansen D.O. Ordering Physician: Willi Christiansen D.O. Date of Service: 11/17/24 Procedure(s): US OB growth Accession Number(s): [id number] cc: Willi Christiansen D.O.; Physician,Non-Staff Arin [address] [address] Patient Name: SHAYLA MARTINEZ MRN: [facility]:[id number] date: 2005 Sex: F Assigned Patient Location: [facility] Current Patient Location: Accession/Order Number: [id number] Exam Date: 11/17/2024 15:03 Report Date: 11/17/2024 [...] days. Estimated date delivery 01/07/2025. Estimated weight 2024 g with percentile 47.2%. No obvious nuchal cord identified. US/US OB growth IMPRESSION: Single live intrauterine gestation 32 weeks 5 days. Adequate amniotic fluid. No nuchal cord visualized. Impression dictated by: Froy Ladd M.D. 11/17/2024 3:06 PM Dictation Location: [facility] Electronically authenticated by: [id number] Y Date: 11/17/2024 15:06 Dictated By: Froy Ladd D.O. Signed By: 11/17/24 1508 DD/ 1506 TD/TT: Variety Lathe Operator: [facility] Radiology, Radiologist, MD - 11/17/2024 [place] [address] Ultrasound Report Signed Patient: SHAYLA MARTINEZ MR#: [id number] : 2005 Acct:[id number] Age/Sex: 18 / F ADM Date: 11/17/24 Loc: US Attending Dr: Willi Christiansen D.O. Ordering Physician: Willi Christiansen D.O. Date of Service: 11/17/24 Procedure(s): US OB growth Accession Number(s): [id number] cc: Willi Christiansen D.O.; Physician,Non-Staff Arin [place] [id number] Patient Name: SHAYLA MARTINEZ MRN: [facility]:[id number] date: 2005 Sex: F Assigned Patient Location: [facility] Current Patient Location: Accession/Order Number: [id number] Exam Date: 11/17/2024 15:03 Report Date: 11/17/2024 [...] Ladd M.D. 11/17/2024 3:06 PM Dictation Location: [place] [address] Electronically authenticated by: [id number] Y Date: 11/17/2024 15:06 Dictated By: Froy Ladd D.O. Signed By: 11/17/24 1508 DD/ 1506 TD/TT: Variety Lathe Operator: [facility] Radiology Study observation (narrative) [facility] US OB GROWTHon 11-03-2024 [place] [address] Ultrasound Report Signed Patient: SHAYLA MARTINEZ MR#: [id number] : 2005 Acct:[id number] Age/Sex: 18 / F ADM Date: 11/03/24 Loc: US Attending Dr: Kristina Cox Ordering Physician: Willi Christiansen D.O. Date of Service: 11/03/24 Procedure(s): US OB growth Accession Number(s): [id number] cc: Willi Christiansen D.O.; Physician,Non-Staff Arin [place] [id number] Patient Name: SHAYLA MARTINEZ MRN: [id number]:[id number] date: 2005 Sex: F Assigned Patient Location: US Current Patient Location: US Accession/Order Number: [id number] Exam Date: 11/03/2024 17:00 Report Date: 11/03/2024 [...] Ladd M.D. 11/03/2024 5:05 PM Dictation Location: [employer] Electronically authenticated by: [id number] Y Date: 11/03/2024 17:05 Dictated By: Froy Ladd D.O. Signed By: 11/03/241707 DD/ 04 TD/TT: Variety Lathe Operator: [facility] Radiology, Radiologist, MD - 11/03/2024 [place] [address] Ultrasound Report Signed Patient: SHAYLA MARTINEZ MR#: [id number] : 2005 Acct:[id number] Age/Sex: 18 / F ADM Date: 11/03/24 Loc: US Attending Dr: Kristina Cox Ordering Physician: Willi Christiansen D.O. Date of Service: 11/03/24 Procedure(s): US OB growth Accession Number(s): [id number] cc: Willi Christiansen D.O.; Physician,Non-Staff M.Jorden The [address] [address] Patient Name: SHAYLA MARTINEZ MRN: [facility]:[id number] date: 2005 Sex: F Assigned Patient Location: US Current Patient Location: US Accession/Order Number: [id number] Exam Date: 11/03/2024 17:00 Report Date: 11/03/2024 [...] Ladd M.D. 11/03/2024 5:05 PM Dictation Location: [place] [address] Electronically authenticated by: [id number] Y Date: 11/03/2024 17:05 Dictated By: Froy Ladd D.O. Signed By: 11/03/241707 DD/ 04 TD/TT: Variety Lathe Operator: [facility] Radiology Study observation (narrative) [facility] OB GROWTHOrdered By: Amadou postogjulian Radiology on 11-03-2024 [facility] [employer] Work Phone: Urinalysis macro (dipstick) panel (U)on 11-03-2024 Bilirubin, UA Negative Negative - 4(70) +++ mg/dL [facility] Blood, UA Positive Negative - 50 Onur/mcL [facility] Comment on above: trace-intact Clarity, UA Clear [facility] [employer] re Color, UA Yellow [facility] e Glucose, UA Negative Negative - 1999(110) ++++ mg/dL [facility] Interpretation and review of laboratory results Abnormal [facility] Ketones, UA Negative Negative - 160(16) ++++ mg/dL [facility] Leukocytes, UA Positive Negative - 500+++ Todd/mcL [facility] Comment on above: small Nitrite, UA Negative Negative - Positive [facility] pH, UA 7.5 5 - 9 [facility] e Protein, UA Negative Negative - 1999(20) ++++ mg/dL [facility] Spec Grav, UA 1.02 1 - 1.03 [facility] Urobilinogen, UA 0.2 0.2 - 12 mg/dL [facility] Urinalysis macro (dipstick) panel (U)on 10-04-2024 Bilirubin, UA Negative Negative - 4(70) +++ mg/dL [facility] Blood, UA Positive Negative - 50 Onur/mcL [facility] Comment on above: large Clarity, UA Clear [facility] re Color, UA Yellow [facility] [employer] e Glucose, UA Negative Negative - 1999(110) ++++ mg/dL [facility] Interpretation and review of laboratory results Abnormal [facility] Ketones, UA Negative Negative - 160(16) ++++ mg/dL [facility] Leukocytes, UA Trace Negative - 500+++ Todd/mcL [facility] Nitrite, UA Negative Negative - Positive [facility] pH, UA 7 5 - 9 [facility] e Protein, UA Trace Negative - 1999(20) ++++ mg/dL [facility] Spec Grav, UA 1.02 1 - 1.03 [facility] Urobilinogen, UA 0.2 0.2 - 12 mg/dL [facility] US OB 14+ WEEKS [...] II, MD, PHD at 25-Aug-2024 08:37:46 AM [facility] Normal Not Available Comment on above: Order Comment: US OB ANATOMY SINGLE W US OB CERVICAL LENGTH Estimated Date of Delivery: 01/06/25 Gestational Age as of 07/27/2024: 16w5d BOX TESTon 06-24-2024 BOX TEST SENT OUT Bahu [facility] BOX1 [facility] BOX2 06/24/24 [facility] BOX [facility] HCG ( test) Ql (U)o n 06-24-2024 Interpretation and review of laboratory results Abnormal [facility] [employer] Preg Test, Ur Positive Negative [facility] [...] UA Negative Negative - 4(70) +++ mg/dL [facility] Blood, UA Negative Negative - 50 Onur/mcL [facility] Clarity, UA Clear [facility] Healthct re Color, UA Yellow [facility] [employer] e Glucose, UA Negative Negative - 1999(110) ++++ mg/dL [facility] Interpretation and review of laboratory results Abnormal [facility] Ketones, UA Positive Negative - 160(16) ++++ mg/dL [facility] Comment on above: 40 Leukocytes, UA Positive Negative - 500+++ Todd/mcL [facility] Comment on above: small Nitrite, UA Negative Negative - Positive [facility] pH, UA 7 5 - 9 [facility] Protein, UA Positive Negative - 1999(20) ++++ mg/dL [facility] Comment on above: 30 Spec Grav, UA 1.025 1 - 1.03 [facility] Urobilinogen, UA 0.2 0.2 - 12 mg/dL [facility] Urine Cultureon 06-24-2024 Bacteria identified Cx Nom (U) 75,000 colonies/ml mixed bacterial skin contaminants 2 Days PERFORMED BY: [place] [address] [place] [address] PATHOLOGIST CUSTOMER SERVICE DISPATCHER FABBY Johnson [facility] Comment on above: Performed By: #### C UU #### [place] [id number] [facility] Consent Formson 05-18-2024 Consent Forms [id number] [facility] ED Clinical Summaryon 2023 ED Clinical Summary [facility] ? Urgent Care [address] [place] [address] Clinical Summary PERSON INFORMATION Name: SHAYLA MARTINEZ Age: 18 Years Sex: FEMALE : 2005 MRN: Acct#: Visit Reason: Medical screening exam; [facility] Arrival: 05/17/2024 13:06:33 Discharge: 05/17/2024 14:08:00 LOS: 000 01:02 Check In: 05/17/2024 13:06:33 Checkout: 05/17/2024 14:08:00 Address: [address] [place] [address] PCP: Provider, None PROVIDER INFORMATION Provider Role [...] DIAGNOSIS: Physical exam Patient Understands: Yes - Patient/family/child care coordinator verbalizes understanding of instructions given Comment: [facility] ED Patient Summaryon 024 ED Patient Summary [facility] ? Urgent Care [address] [place] [address] PATIENT DISCHARGE INSTRUCTIONS Patient Information Name: SHAYLA MARTINEZ Age: 18 Years Date of : 2005 Reason For Visit: Medical screening exam; [place] [facility] Arrival Time: 05/17/2024 13:06:33 Primary Care Physician: Provider, None Attending Physician: PARESH IRBY Comment: Patient Education With: Address: When: Your primary provider in your hometown , only if needed Medication Information: The exam and treatment you received today in the [facility] Emergency Department were for an urgent problem and are not intended as complete care. It is important for you to follow up with a doctor, nurse practitioner, or physician?s assistant offset press operator for ongoing care. If your symptoms become [...] so we can reach you if necessary. [facility] Emergency Department has provided you with a complete list of medications post discharge. Please inform your pattern layout worker/provider of your visit and for further instruction on these medications. Any specific questions regarding your chronic medications and dosages should be discussed with your primary care physician(s) and/or pharmacist. Visit Information Visit Diagnosis: Diagnoses This Visit Medical screening exam ([id number] -[id number]) Physical exam (Z00.00) If you received any [...] for Disease Control and Prevention February 2014 [facility] Urgent Care Note- Provideron 05-17-2024 [...] - Pharynx pink and moist. NECK: -Supple (ilfp-ti-zgtzm): non-tender. CARD: -Rate and rhythm: Regular -Edema: [...] Plan Assessment and Plan: Diagnosis: Physical exam ([id number] Z00.00). Cleared for employment [Electronically Signed on: 05/17/2024 14:05 EST] __ PARESH IRBY [Verified on: 05/17/2024 14:05 EST] __ PARESH IRBY [facility]gent Care Recordon 024 Urgent Care Record [facility] ? Urgent Care [address] [place] [address] PATIENT DISCHARGE INSTRUCTIONS Patient Information Name: SHAYLA MARTINEZ Age: 18 Years Date of : 2005 Reason For Visit: Medical screening exam; [place] [facility] Arrival Time: 05/17/2024 13:06:33 Primary Care Physician: Provider, None Attending Physician: PARESH IRBY Comment: Visit Diagnosis: Diagnoses This Visit Medical screening exam ([id number] -[id number]) Physical exam (Z00.00) If you received any [...] and treatment you received today in the [facility] were for an urgent problem and are not intended as complete care. It is important for you to follow up with a doctor, nurse practitioner, or physician?s assistant offset press operator for ongoing care. If your symptoms become [...] so we can reach you if necessary. [facility] has provided you with a complete list of medications post discharge. Please inform your pattern layout worker/provider of your visit and for further instruction [...] for Disease Control and Prevention February 2014 [facility] ALL CBC WITH AUTO DIFFon Erythrocyte distribution width (RBC) [Ratio] 15.7 % High 11.0 - 15.0 % [facility] Hematocrit (Bld) [Volume fraction] 30.7 % Low 36.0 - 48.0 % [facility] Health[facility] e Hemoglobin (Bld) [Mass/Vol] 10.0 g/dL Low 12.0 - 16.0 g/dL [facility] Interpretation and review of laboratory results Abnormal [facility] MCH (RBC) [Entitic mass] 27.9 pg 26.7 - 34.0 pg [facility] MCHC (RBC) [Mass/Vol] 32.6 g/dL 29.9 - 35.2 g/dL [facility] MCV (RBC) [Entitic vol] 85.8 fL 81.0 - 99.0 fL [facility] Platelet mean volume (Bld) [Entitic vol] 10.9 fL 9.5 - 13.5 fL [facility] Healthc are [facility]H PLT 282 [facility] TB RBC 3.58 Low [facility] TB WBC 17.2 High [facility] Health[facility] e TB UA (CLEAN/CATCH) CLINICAL CARE LEADER/CORONA RO IF IND.on 02-12-2024 BILIRUBIN URINE Negative NEGATIVE [facility] BLOOD URINE Negative NEGATIVE [facility] Clarity (U) CLEAR CLEAR [facility] Color (U) YELLOW YELLOW [facility] GLUCOSE URINE UA Negative NEGATIVE mg/dL [facility] Interpretation and review of laboratory results Abnormal [facility] Ketones Ql (U) TRACE Abnormal NEGATIVE mg/dL [facility] Leukocyte esterase Test strip Ql (U) TRACE Abnormal NEGATIVE [facility] e NITRITE URINE Negative NEGATIVE [facility] pH (U) 6.5 [pH] 5.0 - 9.0 [facility] PROTEIN URINE Negative NEG/TRACE mg/dL [facility] SPECIFIC GRAVITY URINE >=1.030 Abnormal 1.005 - 1.025 [facility] URINE MICROSCOPIC INDICATED YES [facility] UROBILINOGEN URINE 0.2 EU/dL 0.2 - 1.0 EU/dL [facility] BOX TEST SENT OUTon 01-15 BOX TEST SENT OUT [facility] Comment on above: See Scanned Report. [facility] Urinalysis macro (dipstick) panel (U)on 02-09-2024 Bilirubin, UA Negative Negative - 4(70) +++ mg/dL [facility] Blood, UA Positive Negative - 50 Onur/mcL [facility] Comment on above: trace-intact Clarity, UA Clear [facility] re Color, UA Yellow [facility] e Glucose, UA Negative Negative - 1999(110) ++++ mg/dL [facility] Interpretation and review of laboratory results Abnormal [facility] Ketones, UA Negative Negative - 160(16) ++++ mg/dL [facility] Leukocytes, UA Trace Negative - 500+++ Todd/mcL [facility] Nitrite, UA Negative Negative - Positive [facility] pH, UA 6.5 5 - 9 [facility] e Protein, UA Negative Negative - 1999(20) ++++ mg/dL [facility] Spec Grav, UA 1.030 1 - 1.03 [facility] Urobilinogen, UA 0.2 0.2 - 12 mg/dL [facility] BOX TEST SENT OUTon 07-17 BOX TEST SENT OUT SENT 07/29 [facility] HCG ( test) Ql (U)o n 07-25-2023 Interpretation and review of laboratory results Abnormal [facility] Preg Test, Ur Positive [facility] Urinalysis macro (dipstick) panel (U)on 07-25-2023 Bilirubin, UA Negative Negative - 4(70) +++ mg/dL [facility] Blood, UA Negative Negative - 50 Onur/mcL [facility] Clarity, UA Clear [facility] Health[facility] re Color, UA Yellow [facility] Glucose, UA Negative Negative - 1999(110) ++++ mg/dL [facility] Interpretation and review of laboratory results Abnormal [facility] Ketones, UA Positive Negative - 160(16) ++++ mg/dL [facility] Leukocytes, UA Positive Negative - 500+++ Todd/mcL [facility] Nitrite, UA Negative Negative - Positive [facility] pH, UA 7.0 5 - 9 [facility] Protein, UA Positive Negative - 1999(20) ++++ mg/dL [facility] Spec Grav, UA 1.025 1 - 1.03 [facility] Urobilinogen, UA 1.0 0.2 - 12 mg/dL [facility] BASIC METABOLIC PANLon 07-18 Anion gap [Moles/Vol] 9 mmol/L Normal 5-15 [facility] Comment on above: Performed By: #### B MP #### [facility] ([id number]) [address] [place] [address]34 Calcium [Mass/Vol] 9.1 mg/dL Normal 8.5-10.5 [facility] Comment on above: Performed By: #### B MP #### [facility] ([id number]) [address] [place] [address] 26640 Chloride [Moles/Vol] 104 mmol/L Normal 98-109 [facility] Comment on above: Performed By: #### B MP #### [facility] ([id number]) [address] [place] [address] 90466 CO2 [Moles/Vol] 21 mmol/L Low 22-32 [facility] Comment on above: Performed By: #### B MP #### [facility] ([id number]) [address] [place] [address] 35758 Creatinine [Mass/Vol] 0.58 mg/dL Normal 0.30-1.00 [facility] Comment on above: Result Comment: METH OD TRACEABLE TO IDMS STANDARD Performed By: #### B MP #### [facility] ([id number]) [address] [place] [address] 45538 eGFR (CKD-EPI) NON-RACE DEPENDENT >90 Normal >59 [facility] Comment on above: Result Comment: Reported eGFR is based on the CKD-EPI 2020 equation that does not use a race coefficient. Performed By: #### B MP #### [facility] ([id number]) [address] [place] [address] 70359 Glucose [Mass/Vol] 106 mg/dL High 65-99 [facility] Comment on above: Performed By: #### B MP #### [facility] ([id number]) [address] [place] [address] 28656 Potassium [Moles/Vol] 3.5 mmol/L Normal 3.5-5.0 [facility] Comment on above: Performed By: #### B MP #### [facility] ([id number]) [address] [place] [address] 72911 Sodium [Moles/Vol] 134 mmol/L Normal 134-146 [facility] Comment on above: Performed By: #### B MP #### [facility] ([id number]) [address] [place] [address] 83770 Urea nitrogen [Mass/Vol] 10 mg/dL Normal 5-23 [facility] Comment on above: Performed By: #### B MP #### [facility] ([id number]) [address] [place] [address] 20108 HCG ( test) Ql (U)o n 07-18-2023 Beta HCG ( test) Ql (U) Positive Abnormal NEG [facility] Comment on above: Performed By: #### 2 106-3 #### [facility] ([id number]) [address] [facility] [place] [address] SARS/FLU A+B/RSV by NAAT/Mol patriciaon 07-18-2023 SARS/FLU A+B/RSV by NAAT/Molecular FLU A [...] operators who are performing tests using either [employer] or [employer] systems and is limited to laboratories that [...] repeat. Fact Sheet for Healthcare Providers: https://www.fda.gov /media/425069/downl oad Fact Sheet for Patients: https://www.fda.gov /media/078524/downl oad Normal [facility] Comment on above: Performed By: #### C OVFLR #### [facility] ([id number]) [address] [place] [address]858 URINE CULTUREon 07-18-2023 Bacteria identified Cx Nom (U) CULTURE RESULTS 50-100,000 ORGANISMS/ML NORMAL UROGENITAL ADELE Normal [facility] Comment on above: Performed By: #### 6 30-4 #### [facility] ([id number]) [address] [place] [address], [address] [place] [address] URN MACROSCOPIC NURon 2023 BILIRUBIN MARLYS Negative Normal NEG [facility] Comment on above: Performed By: #### N UM #### [facility] ([id number]) [address] [place] [address] 79660 BLOOD/HGB MARLYS Negative Normal NEG [facility] Comment on above: Performed By: #### N UM #### [facility] ([id number]) [address] [place] [address] 48349 GLUCOSE MARLYS Negative Normal NEG [facility] Comment on above: Performed By: #### N UM #### [facility] ([id number]) [address] [place] [address] 48969 KETONES MARLYS 40 mg/dL Abnormal NEG [facility] Comment on above: Performed By: #### N UM #### [facility] ([id number]) [address] [place] [address] 79283 LEUKOCYTE ESTERASE MARLYS Small Abnormal NEG [facility] Comment on above: Performed By: #### N UM #### [facility] ([id number]) [address] [place] [address] 89898 NITRITE MARLYS Negative Normal NEG [facility] Comment on above: Performed By: #### N UM #### [facility] ([id number]) [address] [place] [address] 80146 PH MARLYS 7.5 Normal 5.0-8.5 [facility] Comment on above: Performed By: #### N UM #### [facility] ([id number]) [address] [place] [address] 45794 PROTEIN MARLYS 30 mg/dL Abnormal NEG [facility] Comment on above: Performed By: #### N UM #### [facility] ([id number]) [address] [place] [address] 54528 SPECIFIC GRAVITY MARLYS 1.020 Normal 1.003-1.035 [facility] Comment on above: Performed By: #### N UM #### [facility] ([id number]) [address] [place] [address] 05874 UROBILINOGEN MARLYS 2.0 eu/dL High <1.1 [facility] Comment on above: Performed By: #### N UM #### [facility] ([id number]) [address] [place] [address] 25806 COVID Quick Testingon 2020 Result Negative [facility] [employer] Other Quick Strepon 05-08-2021 S. pyogenes Org specific cx Ql (Throat) Negative [employer] [facility] [employer] Other Quick Strep [employer] [facility] [employer] Other XR chest 2V*on 05-08-2021 XR [facility]* [facility] [employer] Other XR chest 2V* [facility] [employer] Other XR chest 2V* [address] [place] [address] [employer] Other XR chest 2V* [place] [address] [facility] [employer] Other XR chest 2V* XRay Report [employer] Other XR chest 2V* Signed [employer] Other XR chest 2V* Patient: Shayla Martinez MR#: [id number] [employer] Other XR chest 2V* [address] [employer] Other XR chest 2V* : 2005 Acct:[id number] [employer] Other XR chest 2V* Age/Sex: 15 / F ADM Date: 05/08/21 [employer] Other XR chest 2V* Loc: [facility] Room: Type: [facility] [employer] Other XR chest 2V* Attending Dr: SAHIL Carranza APRN [employer] Other XR chest 2V* Ordering Provider: Sravani Dumont APRN, MAXIMILIANO [employer] Other XR chest 2V* Date of Service: 05/08/21 [employer] Other XR chest 2V* XR/XR chest 2V*: Cough;Wheezing [employer] Other XR chest 2V* Copies to: Sravani Dumont APRN, MAXIMILIANO [employer] Other XR chest 2V* PA AND LATERAL CHEST: [employer] Other XR chest 2V* CLINICAL HISTORY: Crackling and diminished lung sounds on exam today. Body aches, fever and [employer] Other XR chest 2V* productive cough. [employer] Other XR chest 2V* COMPARISON: None [employer] Other XR chest 2V* There is no focal parenchymal consolidation, effusion or pneumothorax. The cardiac, hilar and [employer] Other XR chest 2V* mediastinal silhouettes are within normal limits. There is no vascular congestion. The [employer] Other XR chest 2V* visualized bony thorax is intact. There is subtle reverse S-shaped scoliotic curvature. [employer] Other XR chest 2V* XR/XR chest 2V* [employer] Other XR chest 2V* IMPRESSION: [employer] Other XR chest 2V* NO ACUTE CARDIOPULMONARY ABNORMALITY. [employer] Other XR chest 2V* Impression dictated by: Radha Joyce M.D.05/08/2021 2:43 PM [employer] Other XR chest 2V* Dictation Location: [facility]- [employer] Other XR chest 2V* Transcribed By: VIC 05/08/21 [facility] [employer] Other XR chest 2V* Dictated By: Radha Joyce MD 05/08/21 [facility] [employer] Other XR chest 2V* Signed By: [employer] Other XR chest 2V* 05/08/21 [facility] [employer] [employer] Other Vital Signs Date Time Vital Sign Value Performing Clinician Facility 12-13-2024 15:16-0400 Body weight 108.77 kg Kristina RHODES Work Phone: [facility] 12-13-2024 15:16-0400 Diastolic blood pressure 90 mm[Hg] Kristina RHODES Work Phone: [facility] 12-13-2024 15:16-0400 Systolic blood pressure 112 mm[Hg] Kristina RHODES Work Phone: [facility] 11-03-2024 09:21-0400 Body weight 105.14 kg Kristina RHODES Work Phone: [facility] 11-03-2024 09:21-0400 Diastolic blood pressure 80 mm[Hg] Kristina [place] PA Work Phone: [facility] 11-03-2024 09:21-0400 Systolic blood pressure 120 mm[Hg] Kristina [place] PA Work Phone: [facility] 10-04-2024 15:22-0400 Body weight 104.06 kg Kristina Kenny PA Work Phone: [facility] 10-04-2024 15:22-0400 Diastolic blood pressure 76 mm[Hg] Kristina [place] PA Work Phone: [facility] 10-04-2024 15:22-0400 Systolic blood pressure 110 mm[Hg] Kristina [place] PA Work Phone: [facility] 07-27-2024 14:56-0500 Body weight 94.8 kg Willi Елена DO Work Phone: [facility] 07-27-2024 14:56-0500 Diastolic blood pressure 70 mm[Hg] Willi Елена DO Work Phone: [facility] 07-27-2024 14:56-0500 Systolic blood pressure 122 mm[Hg] Willi Елена DO Work Phone: [facility] 02-09-2024 11:08-0400 Body weight 99.7 kg Willi Елена DO Work Phone: [facility] 02-09-2024 11:08-0400 Diastolic blood pressure 80 mm[Hg] Willi Елена DO Work Phone: [facility] 02-09-2024 11:08-0400 Systolic blood pressure 120 mm[Hg] Willi Елена DO Work Phone: [facility] 07-25-2023 10:08-0500 Body weight 73.[address] [facility] Nurse [facility] 04-16-2022 14:30-0400 Body weight 79.74 kg Sravani Dumont Other [employer] Other 04-16-2022 14:30-0400 Diastolic blood pressure 74 mm[Hg] Sravani Dumont Other [employer] Other 04-16-2022 14:30-0400 SaO2% (BldA) [Mass fraction] 96 % Sravani Dumont Other [employer] Other 04-16-2022 14:30-0400 Systolic blood pressure 116 mm[Hg] Sravani Cobbajmicaela Other [employer] Other 03-08-2021 14:00-0400 Body height 166.37 cm Sravani Cobbajmicaela Other [employer] Other 03-08-2021 14:00-0400 Body mass index (BMI) [Ratio] 29.33 kg/m2 Sravani Cobbajmicaela Other [employer] Other 03-08-2021 14:00-0400 Body weight 81.19 kg Sravani Dumont Other [employer] Other 03-08-2021 14:00-0400 Diastolic blood pressure 66 mm[Hg] Sravani Julia Other [employer] Other 03-08-2021 14:00-0400 Respiratory rate 18 /min Sravani Gildardocaseyr Other [facility] Other 03-08-2021 14:00-0400 SaO2% (BldA) [Mass fraction] 100 % Sravani Cobbcarlos a Other [employer] Other 03-08-2021 14:00-0400 Systolic blood pressure 120 mm[Hg] Sravani Julia Other [place] [employer] Other Encounters Encounter Date Encounter Type Care Provider Facility Start: 12-17-2024 End: 12-17-2024 Clinisync Result Encounter Willi Елена DO Work Phone: [facility] Unsolicited Start: 12-17-2024 End: 12-17-2024 Clinisync Result Encounter Willi Елена DO Work Phone: [facility] Unsolicited Start: 12-13-2024 End: 12-13-2024 Office outpatient visit 15 minutes Kristina RHODES Work Phone: [facility] Comment on above: Third trimester preg andrew ([facility] 36 weeks gestation of ([facility] Start: 12-13-2024 End: 12-13-2024 ambulatory KRISTINA COX [...] 11-03-2024 Bamboo flowsheet Kristina RHODES Work Phone: [facility] Start: 11-03-2024 End: 11-03-2024 Clinisync Result Encounter Willi Елена DO Work Phone: [facility] External Department Unsolicited Start: 11-03-2024 End: 11-03-2024 ambulatory KRISTINA COX Not Available Start: 11-03-2024 End: 11-03-2024 Office outpatient visit 15 minutes Kristina RHODES Work Phone: [facility] Comment on above: 30 weeks gestation o f ; Third trimester ; SGA (small for gestational age); Antepartum anemia; Constipation, unspecified constipation type Start: 10-04-2024 End: 10-04-2024 ambulatory KRISTINA COX Not Available Start: 10-04-2024 End: 10-04-2024 Office outpatient visit 15 minutes Kristina RHODES Work Phone: [facility] Comment on above: [...] Start: 06-24-2024 End: 06-24-2024 ambulatory Willi Елена [facility] Work Phone: Start: 06-24-2024 End: 06-24-2024 Departed Referred Willi Елена DO Work Phone: [facility] Start: [...] Start: 05-17-2024 End: 05-17-2024 ambulatory PARESH RHODES Facility:[facility] Start: 02-13-2024 End: 02-13-2024 Clinisync Result Encounter [...] Available Start: 01-06-2024 End: 01-06-2024 ambulatory KRISTINA JACOBOEY Not Available Start: 12-23-2023 End: 12-23-2023 ambulatory WILLI ЕЛЕНА Not Available Start: 07-29-2023 Clinisync Result Encounter Willi Елена DO Work Phone: [facility] External [facility] Unsolicited Start: 07-29-2023 Clinisync Result Encounter Willi Barneso DO Work Phone: [facility] External [facility] Unsolicited Start: 07-25-2023 End: 07-25-2023 Office outpatient visit 5 minutes [facility] Елена Nurse [facility] Comment on above: GA: 9w3d Start: 07-18-2023 End: 07-18-2023 [facility] Start: 11-28-2022 End: 11-28-2022 ambulatory Sravani Dumont Other [employer] Other Start: 11-28-2022 Telephone encounter Sravani Lon her [facility] Start: 04-16-2022 End: 04-16-2022 ambulatory Sravani Dumont Other [employer] Other Start: 04-16-2022 Encounter for routin e child health examination without abnormal findings Sravani Dumont [facility] Start: 04-16-2022 Periodic preventive med est patient 12-17yrs Sravani Dumont [facility] Start: 05-08-2021 End: 05-08-2021 ambulatory Sravani Dumont Other [employer] Other Start: 05-08-2021 Office outpatient vi sit 15 minutes Sravani Dumont [facility] Start: 05-08-2021 Telephone encounter Sravani Lon her [facility] Start: 03-08-2021 Office outpatient vi sit 15 minutes Sravani Dumont [facility] Procedures Date Procedure Procedure Detail Performing Clinician Start: 12-17-2024 AMNISURE Willi Fagavin o DO Work Phone: Start: 12-13-2024 Urnls dip stick/tabl et rgnt [...] Work Phone: Start: 02-12-2024 [facility] UA (CLEAN/CATCH) CLINICAL CARE LEADER/MICRO IF IND. Willi Елена DO Work Phone: [...] Activity Detail Author Start: 02-14-2025 Influenza vaccination [facility] Start: 12-21-2024 End: 12-21-2024 Patient encounter procedure 12/21/2024 2:00 PM EDT Routine [facility] [address] [place] [phone] Willi Christiansen, DO [address] [place], [place] [id number] [facility] Start: 12-13-2024 End: 12-13-2024 Patient encounter procedure 12/13/2024 3:00 PM EDT Routine [facility] [address] [place] [address] Kristina Cox PA [address] [place] [address] Arrived [facility] Comment on above: Arrived Start: 12-13-2024 End: 12-13-2025 CULTURE, GROUP B STREP WITH SUSCEPTIBLITY CULTURE, GROUP B STREP WITH SUSCEPTIBLITY Lab Routine Third trimester ([facility]) Expected: 12/13/2024, Expires: 12/13/2025 [facility] Healthcare Work Phone: Comment on above: Expected: 12/13/2024 , Expires: 12/13/2025 Start: 11-17-2024 End: 11-17-2024 Patient encounter procedure [facility] Start: 11-03-2024 End: 11-03-2025 Ferritin [Mass/volume] in Serum or Plasma Ferritin Lab Routine Antepartum anemia Expected: 11/03/2024 (Approximate), Expires: 11/03/2025 [facility] Comment on above: Expected: 11/03/2024 (Approximate), Expires: 11/03/2025 Start: 11-03-2024 End: 11-03-2025 Transferrin [Mass/volume] in Serum or Plasma Transferrin Lab Routine Antepartum anemia Expected: 11/03/2024, Expires: 11/03/2025 [facility] Comment on above: Expected: 11/03/2024 , Expires: 11/03/2025 Start: 10-20-2024 End: 10-20-2024 Patient encounter procedure 10/20/2024 11:20 AM EDT [facility] [address] [place] [address] Kristina Cox PA [address] [place], [place] [id number] [facility] Start: 10-20-2024 End: 10-20-2024 Professional / ancillary services management 10/20/2024 10:30 AM EDT Ancillary Procedure [facility] [address] [place] [address] [facility] Start: 10-04-2024 End: 10-04-2025 CBC panel - Blood by Automated count CBC Lab Routine Diabetes mellitus screening Expected: 10/04/2024 (Approximate), Expires: 10/04/2025 [facility] Work Phone: Comment on above: Expected: 10/04/2024 (Approximate), Expires: 10/04/2025 Start: 10-04-2024 End: 10-04-2025 Measurement of glucose 1 hour after glucose challenge for glucose tolerance test Glucose tolerance, 1 hour Lab Routine Diabetes mellitus screening Expected: 10/04/2024 (Approximate), Expires: 10/04/2025 [facility] Comment on above: Expected: 10/04/2024 (Approximate), Expires: 10/04/2025 Start: 10-04-2024 End: 02-03-2025 US for US OB follow up transabdominal approach Imaging Routine 26 weeks gestation of Second trimester SGA (small for gestational age) Expected: 10/04/2024, Expires: 02/03/2025 [facility] Comment on above: Expected: 10/04/2024 , Expires: 02/03/2025 Start: 08-24-2024 End: 08-24-2024 Patient encounter procedure 08/24/2024 2:30 PM EDT Routine [facility] [address] [place] [phone] Kristina Cox PA [address] [place] [place] [address] [facility] Start: 08-24-2024 End: 08-24-2024 Professional / ancillary services management 08/24/2024 1:30 PM EDT Ancillary Procedure [facility] [address] [place] [address] [facility] Start: 07-27-2024 End: 07-27-2024 Patient encounter procedure 07/27/2024 2:20 PM EST Routine [facility] [address] [place] [address] Willi Christiansen DO [address] [place] [address] [facility] Start: 07-27-2024 End: 09-24-2024 Alpha fetoprotein, maternal Alpha fetoprotein, maternal Lab Routine Screening, , for anatomic survey Expected: 07/27/2024 (Approximate), Expires: 09/24/2024 [facility] Comment on above: Expected: 07/27/2024 (Approximate), Expires: 09/24/2024 Start: 07-27-2024 End: 07-27-2025 US for US OB 14+ weeks anatomy scan Imaging Routine Screening, , for anatomic survey Expected: 07/27/2024, Expires: 07/27/2025 [facility] Healthcare Comment on above: Expected: 07/27/2024 , Expires: 07/27/2025 Start: 06-24-2024 Urine culture [facility] Start: 06-24-2024 End: 06-24-2025 ABO/Rh ABO/Rh Lab Routine Missed menses , unspecified gestational age Expected: 06/24/2024 (Approximate), Expires: 06/24/2025 [facility] Healthcare Comment on above: Expected: 06/24/2024 (Approximate), Expires: 06/24/2025 Start: 06-24-2024 Bacteria identified in Urine by Culture [facility] Healthcare Comment on above: Ordered: 06/24/2024 Start: 06-24-2024 End: 06-24-2025 Blood type and Indirect antibody screen panel - Blood Type and screen Lab Routine Missed menses , unspecified gestational age Expected: 06/24/2024 (Approximate), Expires: 06/24/2025 [facility] Healthcare Work Phone: Comment on above: Expected: 06/24/2024 (Approximate), Expires: 06/24/2025 Start: 06-24-2024 End: 06-24-2025 Drugs of abuse panel - Urine by Screen method Rapid drug screen, urine Lab Routine , unspecified gestational age Encounter for supervision of normal first in first trimester Expected: 06/24/2024 (Approximate), Expires: 06/24/2025 [facility] Comment on above: Expected: 06/24/2024 (Approximate), Expires: 06/24/2025 Start: 02-15-2024 Influenza vaccination Influenza Vacc ine (#1) [facility] Start: 02-09-2024 End: 02-09-2024 Patient encounter procedure 02/09/2024 11:00 AM EDT Routine [facility] [address] [place] [id number] Willi Crhistiansen, DO [address] [place] [address] Arrived [facility] Comment on above: Arrived Start: 08-26-2023 End: 08-26-2023 Patient encounter procedure 08/26/2023 1:50 PM EDT Rout[facility] [address] [place] [id number] Willi Christiansen, DO [address] [place] [address] [facility] Start: 07-25-2023 End: 07-25-2024 ABO/Rh ABO/Rh Lab Routine Missed menses Expected: 07/25/2023 (Approximate), Expires: 07/25/2024 [facility] Comment on above: Expected: 07/25/2023 (Approximate), Expires: 07/25/2024 Start: 07-25-2023 End: 07-25-2024 Blood type and Indirect antibody screen panel - Blood Type and screen Lab Routine Missed menses Expected: 07/25/2023 (Approximate), Expires: 07/25/2024 [facility] Work Phone: Comment on above: Expected: 07/25/2023 (Approximate), Expires: 07/25/2024 Start: 07-25-2023 End: 07-25-2024 US Pelvis transvaginal US OB transvaginal Imaging Routine Missed menses Expected: 07/25/2023 (Approximate), Expires: 07/25/2024 [facility] Comment on above: Expected: 07/25/2023 (Approximate), Expires: 07/25/2024 Bacteria identified in Urine by Culture Urine culture Microbiology Routine Missed menses Ordered: 07/25/2023 [facility] Comment on above: Ordered: 07/25/2023 CBC W Auto Different ial panel - Blood CBC and differential Lab Routine Missed menses Ordered: 07/25/2023 [facility] Comment on above: Ordered: 07/25/2023 CBC W Auto Different ial panel - Blood CBC and differential Lab Routine Missed menses , unspecified gestational age Ordered: 06/24/2024 [facility] Comment on above: Ordered: 06/24/2024 CHLAMYDIA TRACHOMATI S (GENITO/STI) CHLAMYDIA TRACHOMATIS (GENITO/STI) Lab Routine STD exposure Ordered: 07/27/2024 [facility] Comment on above: Ordered: 07/27/2024 Hemoglobin A1c measurement Hemoglobin A1c Lab Routine Missed menses Ordered: 07/25/2023 [facility] Comment on above: Ordered: 07/25/2023 Hemoglobin A1c/Hemoglobin.total in Blood Hemoglobin A1c Lab Routine Missed menses , unspecified gestational age Ordered: 06/24/2024 [facility] Comment on above: Ordered: 06/24/2024 Hemoglobin A1c/Hemoglobin.total in Blood Hemoglobin A1c Lab Routine 30 weeks gestation of Third trimester Ordered: 11/03/2024 [facility] Work Phone: Comment on above: Ordered: 11/03/2024 Hepatitis B virus surface Ag [Presence] in Serum or Plasma by Immunoassay Hepatitis B surface antigen Lab Routine Missed menses Ordered: 07/25/2023 [facility] Comment on above: Ordered: 07/25/2023 Hepatitis B virus surface Ag [Presence] in Serum or Plasma by Immunoassay Hepatitis B surface antigen Lab Routine Missed menses , unspecified gestational age Ordered: 06/24/2024 [facility] Comment on above: Ordered: 06/24/2024 Hepatitis C virus Ab [Presence] in Serum or Plasma by Immunoassay Hepatitis C antibody Lab Routine Missed menses Ordered: 07/25/2023 [facility] Comment on above: Ordered: 07/25/2023 Hepatitis C virus Ab [Presence] in Serum or Plasma by Immunoassay Hepatitis C antibody Lab Routine Missed menses , unspecified gestational age Ordered: 06/24/2024 [facility] Comment on above: Ordered: 06/24/2024 HIV-1/HIV-2 antigen/antibody combination immunoassay HIV-1 and HIV-2 antibodies Lab Routine Missed menses Ordered: 07/25/2023 [facility] Comment on above: Ordered: 07/25/2023 HIV-1/HIV-2 antigen/antibody combination immunoassay HIV-1 and HIV-2 antibodies Lab Routine Missed menses , unspecified gestational age Ordered: 06/24/2024 [facility] Comment on above: Ordered: 06/24/2024 Neisseria gonorrhoea e DNA [Presence] in Unspecified specimen by JACEK with probe detection Neisseria gonorrhea DNA probe, direct Lab Routine STD exposure Ordered: 07/27/2024 [facility] Comment on above: Ordered: 07/27/2024 Reagin Ab [Presence] in Serum by RPR RPR Lab Routine Missed menses Ordered: 07/25/2023 [facility] Comment on above: Ordered: 07/25/2023 Reagin Ab [Presence] in Serum by RPR RPR Lab Routine Missed menses , unspecified gestational age Ordered: 06/24/2024 [facility] Comment on above: Ordered: 06/24/2024 Rubella antibody, IgG Rubella an tibody, IgG Lab Routine Missed menses Ordered: 07/25/2023 [facility] Comment on above: Ordered: 07/25/2023 Rubella antibody, IgG Rubella an tibody, IgG Lab Routine Missed menses , unspecified gestational age Ordered: 06/24/2024 [facility] Comment on above: Ordered: 06/24/2024 SURESWAB(R) ADVANCED VAGINITIS PLUS, TMA SURESWAB(R) ADVANCED VAGINITIS PLUS, TMA Pathology and Cytology Routine STD exposure Ordered: 07/27/2024 [facility] Work Phone: Comment on above: Ordered: 07/27/2024 Payers Date Payer Category Payer Self-pay 2023 Medicaid [id number] 2022 Medicaid [id number] 2021 [facility] [id number] 2016 Unknown [id number] 2.1 [id number] 2004 Unknown [id number] 2.16.8 [id number] 2004 Unknown [id number] 2.16.8 [id number] 2004 Unknown [id number] 2.16.84 0.1.171191.3.579.2.1259 2004 Unknown [id number] 2.16.84 0.1.786974.3.579.2.1259 2004 Unknown [id number] 2.16.84 0.1.895796.3.579.2.1259 2004 Unknown [id number] 2.16.84 0.1.970628.3.579.2.1259 2004 Unknown [id number] 2.16.84 0.1.522977.3.579.2.1259 2004 Unknown [id number] 2.16.84 0.1.850814.3.579.2.1259 2004 Unknown [id number] 2.16.84 0.1.046703.3.579.2.1259 2004 Unknown [id number] 2.16.84 0.1.438352.3.579.2.1259 2004 Unknown [id number] 2.16.84 0.1.380293.3.579.2.1259 2004 Unknown [id number] 2.16.84 0.1.919001.3.579.2.1259 2004 Unknown [id number] 2.16.84 0.1.069912.3.579.2.1259 Unknown [facility] [id number] Unknown [id number] 2.16.8 [id number] Social History Date Type Detail Facility Start: 06-24-2024 Sex Assigned At [facility] Tobacco smoking stat [facility] Tobacco smoking consumption unknown [facility] Start: 06-03-2023 [facility] Start: 2004 Sex Assigned At Female [facility] Start: 07-07-2023 Gender identity Identifies as female gender (finding) [facility] Start: 07-07-2023 Sexual orientation Heterosexual (finding) [facility] Start: 06-24-2024 Tobacco smoking status [facility] Ex-smoker [facility] History of tobacco use Current smoker [facility] History of tobacco use Cigarette Smoker [facility] Start: 06-24-2024 History of Social function [facility] Start: 05-13-2018 Tobacco smoking status [facility]IS Never smoked tobacco (finding) [facility] Start: 06-26-2024 Sex Female (finding) [facility] Clinical Notes 03-08-2021 to 12-13-2024 CARMELO Adam - 12/13/2024 3:00 PM CARMELO Marroquin - 11/03/2024 9:00 AM Cony Regan LPN - 10/04/2024 3:00 PM Dave Crowell LPN - 07/27/2024 2:20 PM EST Note Date [...] ASSESSMENT & PLAN ICD-10-CM 1. Third trimester ([facility]) Z34.93 POCT urinalysis dipstick manually resulted CULTURE, GROUP B STREP WITH SUSCEPTIBLITY CULTURE, GROUP B STREP WITH SUSCEPTIBLITY 2. 36 weeks gestation of ([facility]) Z3A.36 Documented by CARMELO Adam on behalf of: CARMELO Adam documented in this encounter [facility] 11-03-2024 History of Presen t illness Narrative [...] nursing note reviewed. Exam conducted with a cardiologist present. Vitals: There is no height or [...] of: CARMELO Adam documented in this encounter [facility] 10-04-2024 History of Presen t illness Narrative [...] nursing note reviewed. Exam conducted with a cardiologist present. Vitals: There is no height or [...] Macrobid will be sent to [facility] in [place]. Patient given orders to have CBC/1 hour gtt obtained prior to next scheduled appointment. Patient also given order to have growth scan done for possible SGA. Patient to return to clinic in 2-3 weeks. Documented by Swetha Regan LPN on behalf of: Dr. Willi Christiansen DO documented in this encounter [facility] 07-27-2024 History of Presen t illness Narrative [...] nursing note reviewed. Exam conducted with a cardiologist present. Vitals: There is no height or [...] Willi Christiansen DO documented in this encounter [facility] 06-24-2024 History of Presen t illness Narrative [...] Roseanna Escamilla LPN documented in this encounter [facility] 05-18-2024 Note [id number] [facility] 05-17-2024 Note Patient Education Materials Foll s: [facility] 02-09-2024 History of Presen t illness Narrative [...] nursing note reviewed. Exam conducted with a cardiologist present. Vitals: There is no height or [...] Willi Christiansen DO documented in this encounter [facility] 07-25-2023 History of Presen t illness Narrative [...] or undercooked meat, and stay away from [facility]. Patient has also been advised to [...] Jacquelyn Steel MA documented in this encounter [facility] 04-16-2022 Evaluation note Encounter Date Diagnosis Assessment [...] understanding and agrees to plan of care. [facility] 11-23-2021 Evaluation note* Encounter Date Diagnosis [...] stool studies. Apr, Nausea (ICD-10 - R11.0) [facility] 09-23-2021 Evaluation note* Encounter Date Diagnosis [...] verbalized understanding and agreement with treatment plan. [facility] Evaluation noteNo InformationNort [employer] Other Evaluation note* Diagnosis Missed menses [facility] Diagnosis 37 weeks gestation of documented [facility]* Diagnosis Missed menses , unspecified gestational age Encounter for supervision of normal first in first trimester Nausea Nausea alone [facility]: Evaluation note* Diagnosis 16 weeks gestation of Second trimester state, incidental Screening, , for anatomic survey Encounter for anatomic survey STD exposure Yeast infection [facility] Diagnosis 26 weeks gestation of Second trimester state, incidental Diabetes mellitus screening Screening for diabetes mellitus UTI symptoms SGA (small for gestational age) [id number] without mention of malnutrition, unspecified (weight) [facility] Diagnosis 30 weeks gestation of Third trimester state, incidental SGA (small for gestational age) [id number] without mention of malnutrition, unspecified (weight) Antepartum anemia Constipation, unspecified constipation type [facility] Diagnosis Third trimester (HHS-HCC) state, incidental 36 weeks gestation of (HHS-HCC) documented [facility] N[facility]ative - Reported* Type Description Date Medical History APNEA Surgical History tonsilectomy and adenoidectomy [facility] Summary Purpose Family History No Family [...] section and content) DATE CREATED AUTHOR 07/20/2023 [facility] DATE CREATED AUTHOR AUTHOR'S ORGANIZ ATION 05/18/2024 [facility] DATE CREATED AUTHOR AUTHOR'S ORGANIZ ATION 06/30/2024 [facility] DATE CREATED AUTHOR AUTHOR'S ORGANIZ ATION 12/14/2024 [facility] EPIC Care Teams (unrecognized [...] BE BASED ON THE PRIMARY CLINICAL RECORDS. [employer] provides no warranty or guarantee of the accuracy or completeness of information in this document.
[2024-12-22 23:29] VITALS: BP 138/65; PULSE 77
[2024-12-22 23:42] LABS: Glucose Urine UA NEGATIVE (NEGATIVE)
[2024-12-22 23:57] LABS: Cast Seen? NONE SEEN #/LPF (NONE SEEN); Crystals Seen? Seen #/HPF (None Seen); Urine Culture Indicated YES-LC
[2024-12-23] VITALS (23 sets, daily range): BP systolic 116–161; BP diastolic 57–92; PULSE 58–105; TEMP 35.4–36.3
[2024-12-23 00:11] LABS: Cannabinoid Screen Urine POSITIVE (NEGATIVE); Methamphetamines Screen Urine NEGATIVE (NEGATIVE); Tricyclic Antidepressant Urine NEGATIVE (NEGATIVE)
[2024-12-23 00:38] LABS: Hematocrit 32.0 % (36.0-48.0); Hemoglobin 10.4 g/dL (12.0-16.0); Mean Corpuscular HGB Conc 32.5 g/dL (29.9-35.2); Mean Corpuscular Hemoglobin 27.1 pg (26.7-34.0); Mean Corpuscular Volume 83.3 fL (81.0-99.0); Platelet Count 258 10^3/uL (150-450); Red Blood Count 3.84 10^6/uL (4.20-5.40); White Blood Count 11.1 10^3/uL (4.0-11.0)
[2024-12-23] MEDS: ACETAMINOPHEN 500 MG TABLET 1000 MG PO ×2 (03:40→18:05)
[2024-12-23] MEDS: OXYTOCIN/0.9 % SODIUM CHLORIDE 10 UNITS/500 ML PLAST..BAG 6 UNIT IV (06:05)
[2024-12-23] MEDS: 0.9 % SODIUM CHLORIDE 1,000 ML 125 ML IV ×2 (06:06→10:09)
[2024-12-23] MEDS: ROPIVACAINE HCL/PF 400 MG/200 ML PREMIX 6 MG EPIDURAL (10:40)
[2024-12-23] MEDS: OXYTOCIN/0.9 % SODIUM CHLORIDE 20 UNITS/1,000 ML PLAST..BAG 125 UNIT IV (12:10)
--- NOTE | 2024-12-23 12:15 | PM.OBPRCVD ---
Procedure Intrapartal events: None Induction method: per pitocin protocol Delivery augmentation: rupture of membranes and pitocin Delivery monitor: external FHT and external uterine Route of delivery: Episiotomy Description: none L&D Laceration Description: none Estimated blood loss (mL): 250 Anesthesia type: Epidural Disposition: floor Gender: male presentation: vertex Placental delivery description: Spontaneous cord description: 3 Vessels
[2024-12-23] MEDS: BENZOCAINE/MENTHOL 85 GRAM SPRAY BOTTLE 1 APPLIC TOPICAL (18:05)
[2024-12-23] MEDS: IBUPROFEN 600 MG TABLET PO (22:33)
[2024-12-23] MEDS: MAGNESIUM HYDROXIDE 2,400 MG/10 ML ORAL.SUSP 2400 MG PO (22:33)
[2024-12-24 02:01] VITALS: BP 124/67; PULSE 58
[2024-12-24] MEDS: IBUPROFEN 600 MG TABLET PO (06:27)
[2024-12-24 07:09] LABS: Hematocrit 29.6 % (36.0-48.0); Hemoglobin 9.4 g/dL (12.0-16.0); Immature Granulocytes Abs Auto 0.04 10^3/uL (0.00-0.03); Immature Granulocytes Pct Auto 0.5 % (0.0-0.5); Lymphocytes Absolute Auto 2.9 10^3/uL (1.2-3.8); Mean Corpuscular HGB Conc 31.8 g/dL (29.9-35.2); Mean Corpuscular Hemoglobin 27.0 pg (26.7-34.0); Mean Corpuscular Volume 85.1 fL (81.0-99.0); Platelet Count 203 10^3/uL (150-450); Red Blood Count 3.48 10^6/uL (4.20-5.40); White Blood Count 8.3 10^3/uL (4.0-11.0)
--- NOTE | 2024-12-24 08:49 | PM.OBPN ---
OB - PN: Subj Subjective Patient comments: no complaints and pain well controlled [place] status: doing well Exam Constitutional Vital Signs, click to edit/add: Last Vital Signs Temp 97.3 F L 12/23/24 10:39 Pulse 58 L 12/24/24 02:01 Resp 16 12/24/24 02:00 BP 124/67 12/24/24 02:01 O2 Del Method Room Air 12/24/24 02:00 Documenting provider has reviewed patient's vital signs: yes Common normals: no apparent distress Respiratory Common normals: normal respiratory effort and clear to auscultation bilaterally Cardio Common normals: regular rate and regular rhythm GI Common normals: Normal to inspection, nondistended, normoactive bowel sounds present Extremity Common normals: no clubbing, cyanosis or edema and no calf tenderness Results Labs Labs: Short CBC 12/24/24 Range/Units 06:23 WBC 8.3 (4.0-11.0) 10^3/uL Hgb 9.4 L (12.0-16.0) g/dL Hct 29.6 L (36.0-48.0) % Plt Count 203 (150-450) 10^3/uL OB - PN: A/P Plan - Vaginal Delivery day: 1 Plan: routine care, discharge home and follow up 6 weeks Time Spent with Patient Time: Total time spent is greater than 50% in coordination of care (as documented) at patient's floor/unit and/or counseling patient: Total time spent with greater than 50% in coordination of care (as documented) at patient's floor/unit and/or counseling patient: less than 15 minutes
[2024-12-24] MEDS: ACETAMINOPHEN 325 MG TABLET 650 MG PO (10:47)
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
[2024-12-24 13:38] VITALS: BP 127/65; PULSE 71; TEMP 35.3
[2024-12-27 11:08] LABS: Carboxy THC Conf, MS, UR 663 ng/mL (Cutoff=10)
== END 2024-12-24 16:15 | disposition home or self-care (01) | DRG 560 ==
PROVIDERS: Admitting Provider Obstetrics & Gynecology; Visit Provider Obstetrics & Gynecology
DX: O36.5930 Maternal care for other known or suspected poor fetal growth, third trimester, not applicable or unspecified (principal); O99.324 Drug use complicating childbirth; F12.90 Cannabis use, unspecified, uncomplicated; Z3A.38 38 weeks gestation of pregnancy; Z37.0 Single live birth; Z87.891 Personal history of nicotine dependence
CPT/HCPCS: 36415; 59050; 59410; 80307; 80349; 81001; 85025; 85027; 86850; 86900; 86901; 87086; J2300; J2405; J2795